=== PATIENT | female | born 1945 | race Caucasian/White ===

== ENCOUNTER 2017-07-18 12:44 | Inpatient (IN) | payer MEDICARE, OTHER ==
[~2017-07-18] VITALS: Ht 162.6 cm; Wt 116.7 kg
[~2017-07-18 12:44] MED LIST: ACETAMINOP325 MG/10 PO; ACETAMINOPHEN325 M1 PO; Albuterol/Ipratropium Nebulize NEB; BACTRIM DS TAB1 EACH PO; CARAFATE1 GM PO; CARAFATE1 GM/10 ML PO; CICLOPIROX15 GM TOP; CYMBALTA30 MG PO; DOXYCYCLINE PO; FAMOTIDINE20 MG PO; FERROUS SULFAT325 MG PO; HORIZANT600 MG; KETOROLAC TR30 MG/ML IV; LASIX40 MG PO; LOVENOX40 MG/0.4 SC; METOLAZONE5 MG PO; METOPROLOL TART25 MG PO; MIRAPEX0.5 MG PO; MIRAPEX0.75 MG; MIRAPEX1 MG PO; MOBIC15 MG PO; NEURONTIN300 MG PO; NORCO 7.5-3251 EACH; NYAMYC15 GM TOP; NYSTATIN15 GM TOP; ONDANSETRON4 MG/2 M1 IV; PANTOPRAZOLE SO40 MG PO; SANTYL15 GM TOP; SILVASORB480 ML; SILVASORB480 ML TOP; ULTRAM 50MG50 MG PO; VANCOMYCIN HCL500 MG IV; VANCOMYCIN1 GM/250 M IV; ZANAFLEX4 MG PO; ZANTAC150 MG PO; ZOSYN 3.373.375 GM/5 IVP; [UNRECOGNIZED DRUG - CODE] TOP; [UNRECOGNIZED DRUG - CODE] TOP; [UNRECOGNIZED DRUG - OTHER] PO
[2017-07-18] MEDS: SODIUM CHLORIDE 0.9% 1000ML 1,000 ML IV SCH (14:53)
[2017-07-18] MEDS ORDERED: SODIUM CHLORIDE FLUSH 10 ML SYR INJ PRN (15:00)
[2017-07-18] MEDS ORDERED: ONDANSETRON HCL INJ 2 MG/ML VIAL IV PRN (15:00)
[2017-07-18 15:24] LABS: BASOPHILS # (AUTO) 0.1 (0.0-0.1); BASOPHILS % 0.4 % (0.0-1.0); EOSINOPHILS # (AUTO) 0.2 (0.0-0.4); EOSINOPHILS % 1.5 % (0.0-6.0); HEMATOCRIT 37.3 % (34.2-44.1); HEMOGLOBIN 11.5 g/dL (12.0-16.0); LYMPHOCYTES # (AUTO) 1.4 (1.0-3.2); LYMPHOCYTES % 11.9 % (18.0-39.1); MEAN CORPUSCULAR HEMOGLOBIN 27.8 pg (28-32); MEAN CORPUSCULAR HGB CONC 30.8 g/dL (31-35); MEAN CORPUSCULAR VOLUME 90.1 fL (81-99); MONOCYTES # (AUTO) 0.8 (0.2-0.8); MONOCYTES % 6.6 % (4.4-11.3); NEUTROPHILS # (AUTO) 9.5 (2.1-6.9); NEUTROPHILS % 79.2 % (38.7-80.0); PLATELET COUNT 162 x10e3/uL (140-360); RED BLOOD COUNT 4.14 x10e6/uL (3.6-5.1); RED CELL DISTRIBUTION WIDTH 15.5 % (11.7-14.4)
[2017-07-18] MEDS ORDERED: PIPER-TAZ 3.375 GM 50 ML IV SCH (15:30)
[2017-07-18 15:33] LABS: INR 1.08; PROTHROMBIN TIME 14.6 seconds (11.9-14.5)
[2017-07-18 15:34] LABS: PARTIAL THROMBOPLASTIN TIME 34.3 seconds (23.8-35.5)
[2017-07-18 15:40] LABS: ALANINE AMINOTRANSFERASE 16 IU/L (0-55); ALBUMIN 3.2 g/dL (3.5-5.0); ALBUMIN/GLOBULIN RATIO 0.7 (0.8-2.0); ALKALINE PHOSPHATASE 121 IU/L (40-150); ANION GAP 14.6 mmol/L (8-16); BLOOD UREA NITROGEN 18 mg/dL (7-26); BUN/CREATININE RATIO 22 (6-25); CALCIUM 8.9 mg/dL (8.4-10.2); CARBON DIOXIDE 27 mmol/L (22-29); CHLORIDE 96 mmol/L (98-107); CREATININE, SERUM 0.83 mg/dL (0.57-1.11); EST GLOMERULAR FILTRATION RATE > 60 ML/MIN (60-); GLUCOSE 100 mg/dL (74-118); POTASSIUM 3.6 mmol/L (3.5-5.1); SODIUM 134 mmol/L (136-145)
--- NOTE | 2017-07-18 16:10 | Diagnostic Imaging Report ---
PROCEDURE:X-RAY LEFT FOOT, COMPLETE COMPARISON:None. INDICATIONS:LEFT HEEL WOUND FINDINGS: 3 views of the left foot PA, lateral, and oblique). Soft tissue defect over the heel. There are questionable erosive changes of the calcaneus. The bones are diffusely osteopenic. Questionable regional osteopenia the calcaneus. Small calcaneal heel spur. Degenerative changes at the midfoot. CONCLUSION: Soft tissue defect over the heel. There are findings which are suspicious for osteomyelitis of the calcaneus. Recommend MRI of the hindfoot (with and without contrast) for better evaluation. Dictated by: Mariano Mcmillan M.D. on 07/18/2017 at 16:19 Electronically approved by: Mariano Mcmillan M.D. on 07/18/2017 at 16:19
[2017-07-18] MEDS ORDERED: VANCOMYCIN 1GM/NS 250 ML 250 ML IV SCH (17:00)
[2017-07-18 20:00] VITALS: BP 140/89
[2017-07-18 20:04] VITALS: BP 140/89
[2017-07-18] MEDS: ACETAMINOPHEN 325 MG TAB PO PRN (22:37)
[2017-07-19] VITALS (8 sets, daily range): BP systolic 106–172; BP diastolic 63–72
[2017-07-19] MEDS ORDERED: PIPER-TAZ 3.375 GM 50 ML IV SCH ×2 (04:00)
[2017-07-19] MEDS: PIPER-TAZ 3.375 GM 50 ML IV SCH ×5 (04:07→17:50)
[2017-07-19] MEDS: SODIUM CHLORIDE 0.9% 1000ML 1,000 ML IV SCH ×2 (04:08→05:46)
--- NOTE | 2017-07-19 04:31 | Diagnostic Imaging Report ---
CHEST XRAY LINE PLACEMENT, 07/18/2017 11:19 PM Technique: CHEST XRAY LINE PLACEMENT Comparison: 10/04/2016 Clinical history: PICC line placement Findings: Stable mildly enlarged cardiac silhouette, visualized thoracic rods, left humeral arthroplasty and neurostimulator leads. No edema or consolidation, pleural effusion or pneumothorax. Impression: 1. Lines/Tubes: Right PICC tip overlies the expected central subclavian vein. 2. No acute abnormality. Signed by: Dr Milli Monterroso MD on 07/19/2017 12:48 AM
--- NOTE | 2017-07-19 04:46 | Diagnostic Imaging Report ---
CHEST XRAY LINE PLACEMENT, 07/19/2017 3:38 AM Technique: CHEST XRAY LINE PLACEMENT Comparison: 07/19/2016 Clinical history: PICC line placement advancement Findings: Stable cardiac silhouette, visualized thoracic hardware, left humeral arthroplasty and neurostimulator leads. Motion artifact without visualized consolidation or pneumothorax. Impression: 1. Lines/Tubes: Right PICC tip overlies the expected cavoatrial junction. 2. No acute abnormality. Signed by: Dr Milli Monterroso MD on 07/19/2017 4:42 AM
[2017-07-19] MEDS ORDERED: VANCOMYCIN 1GM/NS 250 ML 250 ML IV SCH (05:00)
[2017-07-19] MEDS: VANCOMYCIN 1GM/NS 250 ML 250 ML IV SCH ×3 (05:15→21:00)
[2017-07-19] MEDS: ASPIRIN 81 MG ENTERIC COATED PO SCH (08:58)
[2017-07-19] MEDS: METOPROLOL TARTRATE 25 MG TAB PO SCH ×2 (09:30→20:02)
--- NOTE | 2017-07-19 10:40 | Diagnostic Imaging Report ---
EXAMINATION: CHEST SINGLE (PORTABLE) INDICATION: \S\CHF \[id number] \S\[id number] COMPARISON: None FINDINGS: AP view Findings: Stable cardiac silhouette, visualized thoracic hardware, left humeral arthroplasty and neurostimulator leads. Motion artifact without visualized consolidation or pneumothorax. Impression: 1. Lines/Tubes: Right PICC tip overlies the expected cavoatrial junction. 2. Bilateral central pulmonary vascular congestion, new since prior exam. Signed by: Dr. Alana Lacey M.D. on 07/19/2017 10:37 AM
[2017-07-19] MEDS ORDERED: HYDROCODONE/APAP 7.5MG-325MG 1 EA TAB PO PRN (11:45)
[2017-07-19] MEDS: GABAPENTIN 400 MG CAP PO SCH ×3 (12:05→21:00)
[2017-07-19] MEDS: PANTOPRAZOLE SOD 40 MG TABEC PO SCH (12:05)
[2017-07-19 13:21] LABS: BASOPHILS % 0.3 % (0.0-1.0); EOSINOPHILS # (AUTO) 0.2 (0.0-0.4); EOSINOPHILS % 3.2 % (0.0-6.0); HEMATOCRIT 34.2 % (34.2-44.1); HEMOGLOBIN 10.4 g/dL (12.0-16.0); LYMPHOCYTES % 13.2 % (18.0-39.1); MEAN CORPUSCULAR HEMOGLOBIN 27.6 pg (28-32); MEAN CORPUSCULAR HGB CONC 30.4 g/dL (31-35); MEAN CORPUSCULAR VOLUME 90.7 fL (81-99); MONOCYTES # (AUTO) 0.5 (0.2-0.8); MONOCYTES % 6.2 % (4.4-11.3); NEUTROPHILS # (AUTO) 5.8 (2.1-6.9); NEUTROPHILS % 76.7 % (38.7-80.0); PLATELET COUNT 113 x10e3/uL (140-360); RED BLOOD COUNT 3.77 x10e6/uL (3.6-5.1); RED CELL DISTRIBUTION WIDTH 15.3 % (11.7-14.4)
[2017-07-19 13:38] LABS: BILIRUBIN,URINE NEGATIVE (NEGATIVE); CLARITY,URINE CLEAR (CLEAR); COLOR,URINE YELLOW (YELLOW); KETONES,URINE NEGATIVE (NEGATIVE); LEUKOCYTE ESTERASE ,URINE NEGATIVE (NEGATIVE); NITRITE,URINE NEGATIVE (NEGATIVE); PROTEIN,URINE DIPSTICK NEGATIVE (NEGATIVE); URINE UROBILINOGEN 0.2 mg/dL (0.2 - 1)
[2017-07-19 13:44] LABS: ALANINE AMINOTRANSFERASE 15 IU/L (0-55); ALBUMIN 2.8 g/dL (3.5-5.0); ALBUMIN/GLOBULIN RATIO 0.6 (0.8-2.0); ALKALINE PHOSPHATASE 109 IU/L (40-150); ANION GAP 12.7 mmol/L (8-16); BLOOD UREA NITROGEN 16 mg/dL (7-26); BUN/CREATININE RATIO 21 (6-25); CALCIUM 8.4 mg/dL (8.4-10.2); CARBON DIOXIDE 28 mmol/L (22-29); CHLORIDE 101 mmol/L (98-107); CREATININE, SERUM 0.78 mg/dL (0.57-1.11); EST GLOMERULAR FILTRATION RATE > 60 ML/MIN (60-); GLUCOSE 143 mg/dL (74-118); POTASSIUM 3.7 mmol/L (3.5-5.1); SODIUM 138 mmol/L (136-145)
[2017-07-19 13:49] LABS: EPITHELIAL CELLS,URINE FEW /LPF; WBC,URINE (MAN) 0-5 /HPF (0-5)
--- NOTE | 2017-07-19 14:04 | History and Physical ---
PRIMARY CARE PROVIDER: Dr. Ari Heaton. CHIEF COMPLAINT: Swelling and erythema of left lower leg. HISTORY OF PRESENT ILLNESS: Ms. Hernandez is a 71;-year-old presenting with 2-day history of swelling and erythema of the left lower leg from the knee to the midfoot. She also has a chronic nonhealing left heel ulcer that is nondiabetic, and has some evidence of chronic venous stasis changes. The heel ulcer is not due to diabetes, but may very well be due to peripheral arterial disease. REVIEW OF SYSTEMS: She denies fever, chills or weight loss. She denies sinus congestion or sore throat. She denies chest pain or palpitations. She denies shortness of breath, wheezing or cough. She denies abdominal pain, nausea, vomiting, or melena. She denies dysuria or flank pain. She has some erythema and swelling of the left lower leg below the knee. She denies any other rash. She has a chronic nonhealing ulcer of the left heel. She denies bleeding or bruising. She complains of pain in the left hip and left knee. She denies headache, vertigo or loss of consciousness. Denies depression, agitation, homicide, or suicidal ideation. PAST MEDICAL HISTORY: Significant for long-standing hypertension, chronic venous stasis, osteoarthritis. She had a DVT after back surgery in 2013 is on no anticoagulation at the current moment. She has a chronic nonhealing left heel ulcer and chronic back pain. She has a history of distant hysterectomy, cholecystectomy, left shoulder replacement, bilateral carpal tunnel surgery, multiple left heel debridements, and she has had multiple back surgeries, most recently was a spinal stimulator placement. MEDICATIONS 1. Cymbalta 60 mg twice daily. 2. Lasix 40 mg twice daily. 3. Gabapentin 800 mg 4 times a day. 4. Metoprolol 25 mg at bedtime. 5. Protonix 40 mg q.a.m. 6. Mirapex 2 mg 3 times a day. ALLERGIES: SHE HAS A STATED ALLERGY TO METHADONE, DILAUDID, MORPHINE, AND CLINDAMYCIN. FAMILY HISTORY: Significant for hypertension. SOCIAL HISTORY: The patient is . Bruneian is her primary language. She does not smoke, drink or use illegal drugs. She is generally independently functioning. PHYSICAL EXAMINATION PSYCHIATRIC: She is alert and oriented times 3 with normal mood and affect. CONSTITUTIONAL: She is overweight and morbidly obese. BMI is 44.1. She is in no acute distress. VITAL SIGNS: Blood pressure 121/72, pulse 90 and regular, respiratory rate 18, O2 sat 100% on room air, temperature 96.8. HEENT: Her head is atraumatic. Eyes are anicteric with clear conjunctivae. Ears and nares without erythema or discharge. Oropharynx is clear. NECK: Supple with no mass or thyromegaly. LYMPHATIC SYSTEM: She has no palpable cervical, axillary or inguinal adenopathy. CARDIOVASCULAR: Her heart has a regular rate and rhythm. She has a grade 2/6 systolic murmur at the left sternal border. She has no carotid bruit. She has trace edema in the right leg about the ankle and a little bit more significant edema in the left leg around the ankle with some erythema. RESPIRATORY: Lungs are clear to auscultation and percussion with normal respiratory effort. GASTROINTESTINAL: Abdomen is soft without organomegaly, masses or tenderness. She has normal bowel sounds present. CUTANEOUS: Her skin is warm and dry to touch. She has erythema and swelling of the left lower leg below the knee to the midfoot, and there is a chronic nonhealing ulcer on the left heel. MUSCULOSKELETAL: Her joints are in normal alignment without erythema or swelling. She has no calf tenderness. NEUROLOGIC: Nonfocal with intact cranial nerves and no motor or sensory deficits. DIAGNOSTIC STUDIES: Left foot x-ray shows soft tissue defects corresponding to the ulcer on her left heel, and there may be some osteo changes in the calcaneus. MRI is recommended. Chest x-ray shows cardiomegaly and pulmonary vascular congestion. Venous Doppler is negative for DVT. Arterial Doppler shows severe narrowing in the left iliac artery, otherwise is okay. Her echo has an ejection fraction of 50% to 55% with left atrial enlargement, right ventricular enlargement, and mild aortic stenosis with a peak gradient of 25 and calculated aortic valve area of 1.2 cm squared. Her A1c level is 5.4. Lactic acid 7.1. Chemistry shows normal electrolytes. CO2 27, creatinine 0.83, BUN 18 for a normal GFR. Calcium 8.9. Glucose 100. Transaminases, bilirubin and alk phos are normal. CBC shows a white count 12 with 79% neutrophils, 12% lymphocytes, and 7% monocytes. Hemoglobin 11.5 with microcytic indices, hematocrit 37.3 and platelet count 162,000. Her coags are normal. ASSESSMENT AND PLAN 1. Peripheral arterial disease with chronic nonhealing ulcer of left heel with possible osteomyelitis of the calcaneus. Patient will be getting wound care. Will consult podiatry. Discussed whether we should get an MRI of the foot. Cardiology will also be consulted for possible intervention in the iliac artery. In the meantime, she will be kept on aspirin daily. Will continue wound care and intravenous antibiotics for the cellulitis. 2. Cellulitis, left lower leg: The patient was started on intravenous vancomycin and Zosyn empirically. Blood cultures are pending along with leg elevation. 3. Hypertension with chronic venous stasis: The patient will continue metoprolol and Lasix and leg elevation. 4. Left hip and knee pain: Probable osteoarthritis. Will check x-rays and some plain films to start with to evaluate. 5. Microcytic anemia: Will check fecal occult blood test and the usual anemia labs, iron and vitamin levels. No need for transfusion at this time. Will monitor and transfuse if hemoglobin drops below 11. 6. For prophylaxis, the patient will be on Lovenox for deep venous thrombosis prophylaxis and Protonix for gastrointestinal prophylaxis. Job#: [id number] ANDRESSA
[2017-07-19 15:33] LABS: CHOL/HDL RATIO 2.8 (3.0-3.6)
[2017-07-19] MEDS: PRAMIPEXOLE DIHYDROCHLORIDE 1 MG TAB PO SCH ×2 (15:46→21:00)
[2017-07-19] MEDS: HYDROCODONE/APAP 7.5MG-325MG 1 EA TAB PO PRN ×2 (15:46→21:15)
[2017-07-19] MEDS ORDERED: COLLAGENASE OINTMENT 30 GM TUBE TP SCH (16:00)
[2017-07-19 16:46] LABS: BASOPHILS % 0.2 % (0.0-1.0); EOSINOPHILS # (AUTO) 0.3 (0.0-0.4); EOSINOPHILS % 3.8 % (0.0-6.0); HEMATOCRIT 32.6 % (34.2-44.1); LYMPHOCYTES % 11.3 % (18.0-39.1); MEAN CORPUSCULAR HEMOGLOBIN 27.7 pg (28-32); MEAN CORPUSCULAR HGB CONC 30.7 g/dL (31-35); MEAN CORPUSCULAR VOLUME 90.3 fL (81-99); MONOCYTES # (AUTO) 0.8 (0.2-0.8); MONOCYTES % 8.9 % (4.4-11.3); NEUTROPHILS # (AUTO) 6.5 (2.1-6.9); NEUTROPHILS % 75.3 % (38.7-80.0); PLATELET COUNT 249 x10e3/uL (140-360); RED BLOOD COUNT 3.61 x10e6/uL (3.6-5.1); RED CELL DISTRIBUTION WIDTH 15.2 % (11.7-14.4)
[2017-07-19] MEDS: FUROSEMIDE 40 MG TAB PO SCH (17:00)
[2017-07-19] MEDS: ENOXAPARIN SOD INJ 40 MG/0.4 ML SYR SC SCH (17:50)
[2017-07-19] MEDS: DULOXETINE HCL 30 MG DELAYED RELEASE PO SCH (17:50)
--- NOTE | 2017-07-19 18:15 | Diagnostic Imaging Report ---
RIGHT HIP X-RAY - 3 VIEWS HISTORY: \S\PAIN COMPARISON: None available. FINDINGS: Bones: No acute displaced fracture. Partially visualized hardware in the lower lumbar spine. Osseous alignment is within normal limits. Joints: Degenerative changes of both sacroiliac joints and acetabular femoral joints. Soft tissues: The soft tissues appear unremarkable. Partially visualized metallic device in the left lower quadrant. IMPRESSION: No acute radiographic abnormality. Signed by: Dr. Alana Lacey M.D. on 07/19/2017 6:11 PM
--- NOTE | 2017-07-19 18:15 | Diagnostic Imaging Report ---
RIGHT KNEE X-RAY - 3 VIEWS HISTORY: \S\PAIN \S\[id number] \S\[id number] COMPARISON: None available. FINDINGS: Bones: No acute displaced fracture. Osseous alignment is within normal limits. Joints: Moderate tricompartmental degenerative changes. Soft tissues: The soft tissues appear unremarkable. IMPRESSION: No acute radiographic abnormality. Signed by: Dr. Alana Lacey M.D. on 07/19/2017 6:12 PM
[2017-07-20] VITALS (7 sets, daily range): BP systolic 91–121; BP diastolic 57–89
--- NOTE | 2017-07-20 01:56 | Consultation ---
DATE OF CONSULTATION: CARDIOLOGY CONSULTATION Thank you so much for asking me to see this nice lady in consultation. Mrs. Hernandez is a very complex elderly and morbidly obese woman who was sent from Dr. Aleman's office with left lower leg erythema. HISTORY OF PRESENT ILLNESS: Patient reports that she has had cellulitis in the left lower leg before, and she has taken various courses of antibiotics at home, but suddenly became much redder about of this past week. PAST MEDICAL HISTORY: Long and complex with multiple problems. She denies diabetes or hypertension. She reports she has been told she has an irregular heart rhythm and takes metoprolol. She has lumbar spine disease and had a spine stimulator implanted in April of 2017. She reports that she has a nonhealing ulcer in her left foot perhaps related to neuropathy. She fell down a couple of years ago, and injured her left knee requiring surgical debridement of thrombus. Since then has had a painful left knee. She sees a neurologist, and was told that they do not know why she has neuropathy, but obviously not diabetic in nature. PERSONAL/SOCIAL HISTORY: She lives alone. PHYSICAL EXAMINATION GENERAL: Shows a morbidly obese white woman who is about 5 feet 2 inches tall, weighing 257 pounds. HEENT: Unremarkable. NECK: No jugular venous distention. No bruits. No scars. THORAX: Heart sounds S1 and S2 are equal with prematures. No murmurs. LUNGS: Relatively clear with good air movement on both sides. ABDOMEN: Markedly protuberant with no visible surgical incisions. EXTREMITIES: The groins have erythema on both sides. The left lower leg has significant erythema below the left knee to the ankle. There is a bandage on the left foot. No EKG on the chart. REVIEW OF SYSTEMS PULMONARY: She reports she was told that she had a right hemidiaphragm paralysis diagnosed about 2013. CARDIOVASCULAR: She reports that she had some sort of procedure by Dr. Blas about 2016 at [facility]. She is not sure what this is. She thinks they may have attempted to open up some arteries in the leg, but cannot give me any further details at all. She reports her surgical procedures in the past have been a right neck cyst removal in about 2007. She reports she has had a remote hysterectomy and cholecystectomy. PERTINENT LABORATORY STUDIES: Are on the chart are relatively unrevealing with white count of 12,000. Normal BUN and creatinine. Current arterial Doppler scan of the legs suggests possible stenoses at the left iliac, the left distal superficial femoral, left popliteal, but she has palpable pulses in both groins. Right is bounding and left is somewhat reduced. Echocardiogram shows normal left ventricular function with aortic sclerosis. ASSESSMENT 1. Cellulitis of the left lower extremity, recurrent. 2. Nonhealing ulcer of the left foot, ongoing for several years. 3. Lumbar spine problems with neuropathy, probably related with no obvious improvement after stimulator implant in April 2017. 4. Morbid obesity. PLAN: Will await antibiotic treatment of the cellulitis, and consider whether angiogram might be helpful. Will attempt to obtain other records as well. Thank you for asking me to see her in consultation. Job#: [id number] RI cc:JEREMÍAS ALEMAN DO
--- NOTE | 2017-07-20 02:06 | Diagnostic Imaging Report ---
CT FOOT LEFT W Clinical history: Osteomyelitis, edema, cellulitis Technique: Volumetric CT scan of the left foot foot was performed. 100 mL of Isovue-370 was administered. Coronal, sagittal and axial images are generated from source data. Comparison: None Findings: Bones/Soft tissues: There is marked soft tissue edema with ulceration and fluid/phlegmon along the inferior posterior aspect of the calcaneus. Underlying cortical/bony destruction is seen involving the inferior posteromedial calcaneus. No fractures or dislocations. Moderate midfoot degenerative changes. Chronic ossicles adjacent to the medial malleolus and posterior talus suggesting prior trauma. Mild tibiotalar joint space narrowing/degenerative change, worse medially with likely reactive talar sclerosis. Overall, there is decreased bone mineralization. 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 Nonemergent follow-up MRI could performed to evaluate extent of disease. Signed by: Dr Milli Monterroso MD on 07/20/2017 2:03 AM
[2017-07-20] MEDS: ACETAMINOPHEN 325 MG TAB PO PRN (02:12)
[2017-07-20] MEDS: HYDROCODONE/APAP 7.5MG-325MG 1 EA TAB PO PRN ×2 (04:24→22:21)
[2017-07-20] MEDS ORDERED: IOPAMIDOL 370 MG/ML 200 ML INFUS..BTL INJ ONE (05:19)
[2017-07-20] MEDS ORDERED: SODIUM CHLORIDE 0.9% 50ML 50 ML ONE (05:19)
[2017-07-20] MEDS: PIPER-TAZ 3.375 GM 50 ML IV SCH ×5 (06:37→23:56)
[2017-07-20 07:07] LABS: BASOPHILS % 0.5 % (0.0-1.0); EOSINOPHILS # (AUTO) 0.4 (0.0-0.4); EOSINOPHILS % 5.4 % (0.0-6.0); HEMATOCRIT 34.5 % (34.2-44.1); HEMOGLOBIN 10.3 g/dL (12.0-16.0); LYMPHOCYTES % 14.9 % (18.0-39.1); MEAN CORPUSCULAR HEMOGLOBIN 27.6 pg (28-32); MEAN CORPUSCULAR HGB CONC 29.9 g/dL (31-35); MEAN CORPUSCULAR VOLUME 92.5 fL (81-99); MONOCYTES # (AUTO) 0.6 (0.2-0.8); MONOCYTES % 9.6 % (4.4-11.3); NEUTROPHILS # (AUTO) 4.6 (2.1-6.9); NEUTROPHILS % 69.1 % (38.7-80.0); PLATELET COUNT 241 x10e3/uL (140-360); RED BLOOD COUNT 3.73 x10e6/uL (3.6-5.1); RED CELL DISTRIBUTION WIDTH 15.5 % (11.7-14.4)
[2017-07-20 07:26] LABS: % IRON SATURATION 9 % (15-50); ANION GAP 11.9 mmol/L (8-16); BLOOD UREA NITROGEN 12 mg/dL (7-26); BUN/CREATININE RATIO 15 (6-25); CALCIUM 8.4 mg/dL (8.4-10.2); CARBON DIOXIDE 29 mmol/L (22-29); CHLORIDE 101 mmol/L (98-107); CREATININE, SERUM 0.78 mg/dL (0.57-1.11); EST GLOMERULAR FILTRATION RATE > 60 ML/MIN (60-); GLUCOSE 95 mg/dL (74-118); IRON 29 ug/dL (50-170); POTASSIUM 3.9 mmol/L (3.5-5.1); SODIUM 138 mmol/L (136-145); TOTAL IRON BINDING CAPACITY 311 ug/dL (261-478); TRANSFERRIN 222 mg/dL (180-382)
[2017-07-20 07:50] LABS: FREE T4 (FREE THYROXINE) 0.96 ng/dL (0.9-1.8); THYROID STIMULATING HORMONE 0.755 uIU/mL (0.350-4.940)
[2017-07-20 07:55] LABS: FOLATE 18.8 ng/mL (7.0-15.4)
[2017-07-20] MEDS: ASPIRIN 81 MG ENTERIC COATED PO SCH (08:33)
[2017-07-20] MEDS: DULOXETINE HCL 30 MG DELAYED RELEASE PO SCH ×2 (08:33→17:00)
[2017-07-20] MEDS: FUROSEMIDE 40 MG TAB PO SCH ×2 (08:33→17:00)
[2017-07-20] MEDS: PANTOPRAZOLE SOD 40 MG TABEC PO SCH (08:33)
[2017-07-20] MEDS: PRAMIPEXOLE DIHYDROCHLORIDE 1 MG TAB PO SCH ×3 (08:33→20:27)
[2017-07-20] MEDS: METOPROLOL TARTRATE 25 MG TAB PO SCH ×2 (08:33→20:27)
[2017-07-20] MEDS: GABAPENTIN 400 MG CAP PO SCH ×4 (08:33→20:27)
[2017-07-20] MEDS ORDERED: SILVER ANTIMICROBIAL WOUND GEL 45ML TOP SCH (09:00)
[2017-07-20] MEDS: VANCOMYCIN 1GM/NS 250 ML 250 ML IV SCH ×2 (09:43→20:27)
--- NOTE | 2017-07-20 09:43 | Consultation ---
DATE OF CONSULTATION: July 19, 2017 REASON FOR CONSULTATION: Nonhealing ulceration, left foot with cellulitis to the left leg. HISTORY OF PRESENT ILLNESS: This is a pleasant 71-year-old white female who is very well known to me secondary to prior admissions and also following in the office with a nonhealing ulceration to the left heel. The patient relates she started getting severe redness, having some nausea and fever 2 days ago. Presented to the emergency room. Ever since, she has been in the hospital getting IV antibiotics, which are Zosyn and vancomycin. She has been feeling much better. Is denying any history of fever, chills, nausea, or vomiting at this time. PAST MEDICAL HISTORY: Remarkable for severe peripheral neuropathy. The patient is not diabetic. Also, past medical history remarkable for irregular heartbeats. PAST SURGICAL HISTORY: Remarkable for plantar fasciotomy several years ago to both lower extremities, multiple left foot I and D's with debridement of left foot ulcerations. ALLERGIES: CLINDAMYCIN, METHADONE, DILAUDID, MORPHINE. SOCIAL HISTORY: Denies any smoking, drinking or recreational drug use. FAMILY HISTORY: Noncontributory. CURRENT MEDICATIONS: Listed in the chart and including IV Zosyn and vancomycin. REVIEW OF SYSTEMS CARDIAC: Denies any palpitations or arrhythmias. RESPIRATORY: Denies any shortness of breath or productive cough. GASTROINTESTINAL: Denies any diarrhea or constipation. GENITOURINARY: Denies any problems voiding. PHYSICAL EXAMINATION VITALS: Afebrile, pulse rate 89, respirations 19, blood pressure 172/66, and O2 saturation 94%. PODIATRIC PHYSICAL EXAMINATION: Reveals the following: VASCULATURE: Pedal pulses are palpable to both the DP and PT. More palpable on the DP than the PT bilaterally. CFT to all toes less than 5 seconds. NEUROLOGICAL: Reveals complete loss of protective sensation when utilizing Adell-Marcy 5.7 monofilament wire. MUSCULOSKELETAL: Muscle mass is asymmetric. Muscle strength is 4-5/5 to all muscle groups. Moderate amount of swelling noted to the left lower extremity with cellulitis up to the midcalf and mid-tibial area of the left leg. Moderate swelling when compared to contralateral side. DERMATOLOGICAL: Shows a grade 3/4 ulceration with some tracking noted down to bone. Minimal foul smell present with some necrosis present surrounding the wound. The ulcer is approximately 3-4 cm in diameter. LABS: Noted. Has a white blood cell count dropping from 12.4 to 7.5, hemoglobin 10.4, hematocrit 34.2, and platelet count of 113,000. ASSESSMENT 1. Possible osteomyelitis. 2. Severe peripheral neuropathy. 3. Grade 3 ulcer with cellulitis. PLAN 1. Will continue IV Zosyn and vancomycin. 2. Sharp excisional debridement of the ulcer was carried down to bone. Devitalized tissue sharply removed. Good bleeding tissue achieved. 3. Deep cultures were taken for aerobic and anaerobic growth. 4. MRI will be ordered to rule out osteomyelitic changes or abscess to the left heel area. Santyl collagenous will be ordered to be applied followed by diluted wet-to-dry Betadine in the evening and SilvaSorb gel followed by diluted wet-to-dry Betadine dressing in the morning. Will continue conservative care. Patient understands possible bone debridement that may need to be done depending on MRI findings. Job#: [id number] ANDRESSA
--- NOTE | 2017-07-20 14:26 | Progress Note ---
DATE: July 20, 2017 SUBJECTIVE: Patient was seen at bedside. Doing somewhat better. Denied any history of fever, chills, nausea, or vomiting. Decreased pain to the left lower extremity. OBJECTIVE VITALS: Afebrile, pulse rate 86, respirations 19, blood pressure 121/89, O2 saturation 94%. EXTREMITIES: Ulceration looking somewhat better. Pedal pulses are diminished. Decreased cellulitis to the left leg. LABS: Show a white blood cell count dropping to 6.6, hemoglobin 10.3, hematocrit 34.5 with a platelet count of 241,000. CT report noted showing signs of positive osteomyelitis to the inferior aspect of the left calcaneous. No gas in the tissue noted. ASSESSMENT 1. Grade 4 ulcer, left foot. 2. Osteomyelitis, left foot. 3. Peripheral neuropathy with cellulitis. PLAN: Will continue IV antibiotics. Continue local wound care. Will continue to follow. If the patient becomes nonresponsive, she may need a partial calcanectomy with a rotational flap closure of the ulcer. Job#: [id number] NE
[2017-07-20] MEDS: ASCORBIC ACID 500 MG TAB PO SCH (17:00)
[2017-07-20] MEDS: FERROUS SULFATE 325 MG TAB PO SCH (17:00)
[2017-07-20] MEDS: ENOXAPARIN SOD INJ 40 MG/0.4 ML SYR SC SCH (17:00)
[2017-07-20] MEDS: NYSTATIN 15 GM POWDER UD BTL TOP SCH (18:12)
[2017-07-21 01:38] VITALS: BP 139/76
[2017-07-21] MEDS: ACETAMINOPHEN 325 MG TAB PO PRN (02:37)
[2017-07-21 05:05] VITALS: BP 107/73
[2017-07-21] MEDS: PIPER-TAZ 3.375 GM 50 ML IV SCH ×2 (05:22→13:30)
[2017-07-21 06:44] LABS: BASOPHILS % 0.6 % (0.0-1.0); EOSINOPHILS # (AUTO) 0.5 (0.0-0.4); EOSINOPHILS % 9.5 % (0.0-6.0); HEMATOCRIT 33.5 % (34.2-44.1); HEMOGLOBIN 10.1 g/dL (12.0-16.0); LYMPHOCYTES # (AUTO) 1.3 (1.0-3.2); LYMPHOCYTES % 26.1 % (18.0-39.1); MEAN CORPUSCULAR HEMOGLOBIN 27.7 pg (28-32); MEAN CORPUSCULAR HGB CONC 30.1 g/dL (31-35); MONOCYTES # (AUTO) 0.6 (0.2-0.8); MONOCYTES % 12.2 % (4.4-11.3); NEUTROPHILS # (AUTO) 2.5 (2.1-6.9); NEUTROPHILS % 51.4 % (38.7-80.0); PLATELET COUNT 253 x10e3/uL (140-360); RED BLOOD COUNT 3.64 x10e6/uL (3.6-5.1); RED CELL DISTRIBUTION WIDTH 15.5 % (11.7-14.4)
[2017-07-21 07:08] LABS: ANION GAP 13.5 mmol/L (8-16); BLOOD UREA NITROGEN 10 mg/dL (7-26); BUN/CREATININE RATIO 13 (6-25); CALCIUM 8.4 mg/dL (8.4-10.2); CARBON DIOXIDE 32 mmol/L (22-29); CHLORIDE 99 mmol/L (98-107); CREATININE, SERUM 0.76 mg/dL (0.57-1.11); EST GLOMERULAR FILTRATION RATE > 60 ML/MIN (60-); GLUCOSE 89 mg/dL (74-118); POTASSIUM 3.5 mmol/L (3.5-5.1); SODIUM 141 mmol/L (136-145)
[2017-07-21 08:00] VITALS: BP 113/71
[2017-07-21] MEDS: DULOXETINE HCL 30 MG DELAYED RELEASE PO SCH ×2 (09:00→16:33)
[2017-07-21] MEDS: PRAMIPEXOLE DIHYDROCHLORIDE 1 MG TAB PO SCH ×2 (09:00→15:30)
[2017-07-21] MEDS: ASPIRIN 81 MG ENTERIC COATED PO SCH (09:00)
[2017-07-21] MEDS: GABAPENTIN 400 MG CAP PO SCH ×4 (09:00→18:08)
[2017-07-21] MEDS ORDERED: MULTIVITAMINS/MINERALS TAB PO SCH (09:00)
[2017-07-21] MEDS: FERROUS SULFATE 325 MG TAB PO SCH ×2 (09:00→16:33)
[2017-07-21] MEDS: VANCOMYCIN 1GM/NS 250 ML 250 ML IV SCH (09:00)
[2017-07-21] MEDS: NYSTATIN 15 GM POWDER UD BTL TOP SCH (09:00)
[2017-07-21] MEDS: ASCORBIC ACID 500 MG TAB PO SCH ×2 (09:00→16:33)
[2017-07-21] MEDS: METOPROLOL TARTRATE 25 MG TAB PO SCH (09:00)
[2017-07-21] MEDS: PANTOPRAZOLE SOD 40 MG TABEC PO SCH (09:00)
[2017-07-21 12:00] VITALS: BP 104/56
--- NOTE | 2017-07-21 13:19 | Consultation ---
DATE OF CONSULTATION: July 19, 2017 CARDIOVASCULAR CONSULTATION ATTENDING PHYSICIAN: Dr. Vasquez Thank you so much for asking me to see this nice but complex lady in consultation. Ms. Hernandez is a 71-year-old woman, morbidly obese, who lives alone, who was sent from her family physician's office with redness of the left lower leg. HISTORY OF PRESENT ILLNESS: The patient reports that she has had cellulitis in the left lower leg previous times and has been treated with antibiotics. She reports that she has had a left heel spur with debridement in June and August 2016. She also tells me of an episode of falling in September 2015 with contusion to her left knee with hematoma requiring debridement. 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 These multiple procedures some have been successful and some have not but without much improvement. PAST MEDICAL HISTORY: Significant for multiple surgeries to her back, at least 5 by her current history. She reports that she had a spine stimulator implanted in April 2017. She goes into great detail telling me that she has neuropathy in both feet with numbness and tingling, but the various studies by her report have not found any underlying cause, although she certainly denies any diabetes. She was hospitalized for a duodenal ulcer in October 2016. She has had multiple surgeries at [facility] for cellulitis. She has had a cholecystectomy in 2003, hysterectomy in 2003, remote tonsillectomy and umbilical hernia repair. She did have a calcaneal spur with some surgery in April 2006. 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 CURRENT HOSPITAL MEDICATIONS: Include: 1. Zosyn. 2. Vancomycin. 3. Furosemide 40 mg b.i.d. 4. Metoprolol 25 mg q.12 h. 5. Lovenox. 6. Gabapentin 800 mg 4 times a day. 7. Tylenol with Codeine. PHYSICAL EXAMINATION GENERAL: At this time, a morbidly obese, white woman who is about 5 feet 2 inches tall and weighs 257 pounds. VITALS: Blood pressure is 140/70. HEENT: Unremarkable. NECK: No jugular venous distention, no adenopathy, no bruits, no incisions. THORAX: Heart sounds S1 and S2 are equal. No significant murmur. Lungs are relatively clear. ABDOMEN: Markedly protuberant with candidiasis in both groins. EXTREMITIES: The left anterior tibial region is markedly erythematous. The left foot is in a bandage. Examination of the heel shows a small ulceration. Both femoral pulses are 2+. Review of the arterial Doppler scan of the legs shows monophasic waveforms throughout the left leg but with patent vessels. There is some acceleration of velocities in the left common femoral and the distal left superficial femoral artery but without stenoses imaged adequately. Review of records from [facility] show that she had a similar finding on arterial Doppler scan of the leg in June 2015 with acceleration of velocities in the left superficial femoral and popliteal with monophasic waveforms throughout the left leg. Current echocardiogram shows normal left ventricular function and aortic sclerosis. ASSESSMENT 1. Cellulitis of the left lower leg. 2. Nonhealing ulcer of the left heel. 3. Neuropathy with spine stimulator implant in April 2017. PLAN: Will monitor with you as she receives antibiotics and will add fungal treatment for her groins. Cannot consider any invasive study while she has these 2 different infections. Note there is no venous varicosity noted on her legs at this time. It appears that her neuropathy may be related to her back and that her edema may be related to dependent edema from spending hours "making jewelry at home," which she reports that she has stopped now. Thank you for asking me to see her in consultation. Job#: [id number] cc:MD DARON JOHNSON DPM
--- NOTE | 2017-07-21 14:07 | Progress Note ---
DATE: July 21, 2017 SUBJECTIVE: Patient seen at bedside feeling somewhat better. Denying any history of fever, chills, nausea or vomiting. OBJECTIVE: Vitals: Afebrile. Pulse rate 99, respirations 18, blood pressure 113/71. O2 saturation 98%. Ulceration to the plantar aspect of the left foot continues to improve. Approximately 3 to 3.5 cm in diameter, with some granulation tissue noted. Also, it is tracking down to bone. Pedal pulses are palpable. Decreased cellulitis to the left leg noted. Still increased skin temperature to left leg when compared to the right. ASSESSMENT: Grade 3/4 ulceration with osteomyelitis, diabetic neuropathy and cellulitis. PLAN: Will continue IV antibiotics. Will need IV antibiotics for next 3 to 4 weeks. Will continue local wound care. Continue offloading. Patient will benefit from HBO therapy. Job#: [id number]
[2017-07-21] MEDS ORDERED: ONDANSETRON4 MG/2 M1 IV (15:41)
[2017-07-21] MEDS ORDERED: NYAMYC15 GM TOP (15:41)
[2017-07-21] MEDS ORDERED: ASPIRIN EC81 MG PO (15:41)
[2017-07-21] MEDS ORDERED: SILVASORB480 ML TOP (15:41)
[2017-07-21] MEDS ORDERED: LOVENOX40 MG/0.4 SC (15:41)
[2017-07-21] MEDS ORDERED: Hydrocodone/Apap 7.5MG-325MG PO (15:41)
[2017-07-21] MEDS ORDERED: Collagenase TP (15:41)
[2017-07-21] MEDS ORDERED: ZOSYN 3.373.375 GM/5 IVP (15:41)
[2017-07-21] MEDS ORDERED: FERROUS SULFAT325 MG PO (15:41)
[2017-07-21] MEDS ORDERED: Multivitamins/Minerals PO (15:41)
[2017-07-21] MEDS ORDERED: ASCORBIC ACID500 MG PO (15:41)
[2017-07-21] MEDS ORDERED: VANCOMYCIN1 GM/250 M IV (15:41)
[2017-07-21 16:00] VITALS: BP_SYST 109; BP_SYST 198; BP_DIAS 59; BP_DIAS 90
[2017-07-21] MEDS: ENOXAPARIN SOD INJ 40 MG/0.4 ML SYR SC SCH (16:33)
[2017-07-21 20:00] VITALS: BP 120/80
--- NOTE | 2017-07-21 21:26 | Consultation ---
DATE OF CONSULTATION: REASON FOR CONSULTATION: Osteomyelitis of the left heel. HISTORY OF PRESENT ILLNESS: This patient who is a very pleasant 71-year-old female, who is known to me from before, history of hypertension, history of diabetes mellitus, history of Charcot joint, history of neuropathy, has been having ulcer on her heel for some time now. The patient was treated with antibiotic some time ago and she was on oral antibiotic. She was doing well. That was probably a year or 2 ago. The patient has history of DVT after back surgery 2012, history of neuropathy, Charcot joint, obesity, diabetes mellitus. She is coming with redness and swelling of the left lower extremity started a couple of days ago. The patient is known to Dr. Rogers, is known to Dr. Andreas Murcia, is known to me. Patient is being admitted, started on IV antibiotic. She is going to [place] today. The patient cannot stay off her foot when she is at home. She keeps walking on it. This patient also has chronic back pain and she had lumbar spine disease and had spine stimulator placed on May 09; so, an MRI has not been able to be done. Patient is admitted, started on vancomycin and Zosyn. Infectious disease was consulted. She is doing much better. Her redness has subsided, but there is also some redness in the foot and she has a deep ulcer on the heel, which is deep to the bone. PAST MEDICAL HISTORY: Obesity diabetes mellitus, hypertension, neuropathy, chronic back pain. PAST SURGICAL HISTORY: As mentioned above. ALLERGIES: CLINDAMYCIN AND METHADONE. SOCIAL HISTORY: No smoking, drug abuse, alcohol abuse. FAMILY HISTORY: Otherwise, hypertension, diabetes. REVIEW OF SYSTEMS HEENT: There is no headache, visual changes, hearing changes. GI: There is no nausea, no vomiting, no diarrhea. ALL OTHER SYMPTOMS: Within normal limits. PHYSICAL EXAMINATION GENERAL: She is currently alert, oriented, does not seem to be in acute distress. VITALS: Stable currently afebrile. HEENT: Normocephalic, nonicteric. NECK: Supple. No JVD, lymphadenopathy, thyromegaly. CHEST: Clear, bilateral coarse. HEART: S1, S2. No murmur. ABDOMEN: Soft, obese, nontender. Bowel sounds positive. EXTREMITIES: Left leg there is erythema and there is edema all the way to mid leg. There is an ulcer at the base of the heel. Charcot joint changes noted. The ulcer of the heel about 2 cm and deep to the bone. Pulses present, but weak. LAB DATA: Reviewed. CT scan showed soft tissue ulcer with calcaneous osteomyelitis of the inferior post medial aspect. She had a white count 4.8, hemoglobin 10.11, when she first came in white count was 12.1. Sodium 138, potassium 3.9, creatinine 0.78. Her TSH was 0.755. Her folic acid 18.8. Her vancomycin trough was 9.9. PHYSICAL EXAMINATION GENERAL: She is currently alert, oriented. Does not seem to be in acute distress. VITALS: Stable. Currently afebrile. HEENT: Normocephalic not icteric. NECK: Supple. CHEST: Clear. ABDOMEN: Soft. Positive bowel sounds. Obese. No tenderness. EXTREMITIES: No edema. IMPRESSION: Osteomyelitis of the foot by computed tomography. MRI could not be done. Will treat 8 weeks IV vancomycin and Zosyn. Will follow CBC, follow chem panel. Will follow with you at [facility]. To discuss with the patient. Job#: [id number]
--- NOTE | 2017-07-22 18:00 | Discharge Summary ---
ADMISSION DIAGNOSES 1. Peripheral arterial disease with chronic nonhealing ulcer of the left heel with possible osteomyelitis. 2. Cellulitis, left lower leg. 3. Hypertension. 4. Chronic venous stasis. 5. Left hip and knee pain. 6. Microcytic anemia. DISCHARGE DIAGNOSES 1. Peripheral arterial disease with chronic nonhealing ulcer of the left heel with possible osteomyelitis. 2. Cellulitis, left lower leg. 3. Hypertension. 4. Chronic venous stasis. 5. Left hip and knee pain. 6. Microcytic anemia. 7. Osteoarthritis of the left heel. 8. Rule out gastrointestinal bleed. HISTORY: Patient has a history of hypertension, chronic venous stasis, osteoarthritis, DVT after back surgery in 2013, and is on no anticoagulation at the moment. She has a chronic nonhealing left heel ulcer and chronic back pain. She has a surgical history of hysterectomy, cholecystectomy, left shoulder replacement, bilateral carpal tunnel surgery, multiple left heel debridements, and she has had multiple back surgeries, most recently was a spinal stimulator placement which she says is currently off. HOSPITAL COURSE: A 71-year-old female presented with 2-day history of swelling and erythema of the left lower leg from the knee to the midfoot. She has a chronic nonhealing ulcer. She is nondiabetic and has some evidence of chronic venous stasis changes. The ulcer is not due to diabetes but may be due to PAD. On admission, podiatry was consulted. Cardiology also consulted for possible intervention in the iliac artery. IV antibiotics started for cellulitis. MRI was ordered but was unable to be obtained due to the spinal stimulator placed. Patient started on Zosyn and vancomycin empirically. Per Dr. Rogers, a debridement was done on July 19, 2017. Blood cultures were negative. Urine cultures negative. X-ray of the left foot showed possible osteomyelitis. Due to the inability to obtain the MRI, the CT of the left foot was done which showed calcaneal osteomyelitis. The left lower extremity venous Doppler was negative. X-rays of the right knee and right hip were both negative. EKG showed sinus rhythm with PAC. Per podiatry, cultures were pending, although I did not see any in the computer. Patient continued on home medicines for pain and hypertension. Patient started on vitamins and iron, and a stool for blood was collected which was negative. Per Dr. Murcia, there is no need for invasive studies. It appears that the neuropathy may be related to her back and that her edema may be related to dependent edema from spending hours making . Current echo shows normal EF and aortic sclerosis. After reviewing the medical records from [place], showed she had similar findings on arterial Doppler scan of the leg in June 2015 with acceleration of velocities in the left superior femoral and popliteal with monophasic waveforms throughout the left leg. Per Dr. Murcia, there is no need for angiogram. Per Dr. Rogers, patient will need 3 to 4 weeks of IV antibiotics. Continue offloading. Patient will benefit from HBO therapy. Patient was sent to [facility] for long-term antibiotic, PT/OT, and wound care. At the time of discharge, WBC was 4.83, hemoglobin of 10.1, hematocrit of 33.5, sodium of 141, potassium of 3.5, creatinine of 0.76, BUN of 10, and GFR of over 60. Patient will transfer to [place] and continue care with the same physicians and same medications. Dictated by Rehana Nguyen NP MANDI REBOLLAR MD Job#: [id number] CF
== END 2017-07-21 20:53 | DRG 464 ==
LOC: ER 12:44 → ERHOLD 15:45 → MED/SURG2 18:15
PROVIDERS: ADMIT Internal Medicine; ATTEND Internal Medicine
PROC: 0JBR0ZZ Excision of Left Foot Subcutaneous Tissue and Fascia, Open Approach (ICD-10-PCS; principal; 2017-07-18)
PROC: 02HV33Z Insertion of Infusion Device into Superior Vena Cava, Percutaneous Approach (ICD-10-PCS; 2017-07-18)
DX: M86.9 Osteomyelitis, unspecified (principal); L97.421 Non-pressure chronic ulcer of left heel and midfoot limited to breakdown of skin; E11.610 Type 2 diabetes mellitus with diabetic neuropathic arthropathy; L03.90 Cellulitis, unspecified; Z68.41 Body mass index [BMI] 40.0-44.9, adult; I73.9 Peripheral vascular disease, unspecified; I87.2 Venous insufficiency (chronic) (peripheral); D64.9 Anemia, unspecified; M19.272 Secondary osteoarthritis, left ankle and foot; E66.01 Morbid (severe) obesity due to excess calories; Z86.718 Personal history of other venous thrombosis and embolism; Z79.01 Long term (current) use of anticoagulants; Z79.4 Long term (current) use of insulin; I70.25 Atherosclerosis of native arteries of other extremities with ulceration; L98.494 Non-pressure chronic ulcer of skin of other sites with necrosis of bone; M16.12 Unilateral primary osteoarthritis, left hip; M17.12 Unilateral primary osteoarthritis, left knee; I70.0 Atherosclerosis of aorta
CPT/HCPCS: 36415; 36569; 71010; 71045; 80048; 80053; 80061; 80202; 81001; 82270; 82607; 82746; 83036; 83540; 83605; 83735; 83880; 84439; 84443; 84466; 85025; 85610; 85730; 86140; 87040; 87086; 93005; 93306; 93925; 93971; 99284; J1650; J2543; J3370; J7030; Q9967

== ENCOUNTER 2017-10-27 15:16 | Inpatient (IN) | payer MEDICARE, OTHER ==
[~2017-10-27] VITALS: Ht 162.6 cm; Wt 116.1 kg
[~2017-10-27 15:16] MED LIST changes: +ASCORBIC ACID500 MG PO; +ASPIRIN EC81 MG PO; +Collagenase TP; +Hydrocodone/Apap 7.5MG-325MG PO; +Multivitamins/Minerals PO
--- OUTSIDE RECORDS SUMMARY | 2017-10-27 15:20 | XMS REPORT | Clinical Summary ---
Author Author CLAU [facility] Address Unknown Phone Unavailable Care Team Providers Care Wet Roller Name Role Phone PCP Unavailable Allergies Active Allergy Reactions Severity Noted Date Comments Clindamycin Itching, Nausea Only 05/21/2017 Hydromorphone (Bulk) Other (See Comments) 05/21/2017 "black out"-no recollection of what happened Methadone Other (See Comments) 05/21/2017 confusion Morphine Itching 05/21/2017 Current Medications Prescription Sig. Disp. Refills Start End Date Status Date pantoprazole (PROTONIX) Take 40 mg by mouth Active 40 MG tablet daily. furosemide (LASIX) 40 MG Take 40 mg by mouth 2 Active tablet (two) times daily. gabapentin (NEURONTIN) Take 800 mg by mouth 4 Active 800 MG tablet (four) times daily. pramipexole (MIRAPEX) 1 Take 2 mg by mouth 4 Active MG tablet (four) times daily. DULoxetine (CYMBALTA) 60 Take 60 mg by mouth 2 Active MG capsule (two) times daily. HYDROcodone-acetaminophen Take 1 tablet by mouth Active (NORCO 5-325) 5-325 mg every 6 (six) hours as per tablet needed for Pain. amitriptyline (ELAVIL) 10 Take 10 mg by mouth Active MG tablet nightly. metoprolol (LOPRESSOR) 25 Take 25 mg by mouth Active MG tablet nightly. mupirocin (BACTROBAN) 2 % Apply topically 2 (two) Active ointment times daily Open wound left heel . doxycycline (VIBRAMYCIN) Take 100 mg by mouth 2 05/13/20 05/28/20 Discontin 100 MG capsule (two) times daily. 17 17 ued docusate sodium (COLACE) Take 1 capsule (100 mg 30 capsule 0 05/28/20 06/07/20 100 MG capsule total) by mouth 3 (three) 17 17 times daily as needed for Constipation for up to 10 days. cephalexin (KEFLEX) 500 Take 1 capsule (500 mg 10 capsule 0 05/28/20 06/02/20 MG capsule total) by mouth 2 (two) 17 17 times daily for 5 days. acetaminophen-codeine Take 1 tablet by mouth 30 tablet 0 06/03/20 (TYLENOL #3) 300-30 mg every 4 (four) hours as 17 17 per tablet needed for Pain for up to 10 days. Max Daily Amount: 6 tablets Active Problems Problem Noted Date Back pain 06/03/2017 Chronic pain disorder 05/27/2017 Pre-op testing 05/27/2017 Encounters Date Type Specialty Care Team Description 06/03/2017 [facility] General Internal Medicine Gerald Villarreal MD - Encounter 06/04/2017 06/03/2017 Procedure Pass 06/03/2017 Surgery Gerald Villarreal MD INSERTION,SPINAL CORD NEUROSTIMULATOR 06/02/2017 Anesthesia Ashley Quigley Event MD Giuliana 05/27/2017 [facility] General Internal Medicine Gerald Villarreal MD Pre-op testing - Encounter 05/28/2017 05/27/2017 Procedure Pass 05/27/2017 Surgery Gerald Villarreal MD INSERTION,SPINAL CORD NEUROSTIMULATOR TRIAL 05/26/2017 Anesthesia Robb Jackson MD Event 05/21/2017 Hospital Gerald Villarreal MD Encounter 05/21/2017 [facility] Cardiology Gerald Villarreal MD Encounter 05/21/2017 Hospital Pre-Admission Testing Gerald Villarreal MD Encounter 05/21/2017 Hospital Pre-Admission Testing Gerald Villarreal MD Pre- op testing Encounter 05/09/2017 Orders Only Neurosurgery Gerald Villarreal MD Pre-op testing (Primary Dx) after 10/26/2016 Social History Tobacco Use Types Packs/Day Years Used Date Never Smoker Smokeless Tobacco: Never Used Alcohol Use Drinks/Week oz/Week Comments No Sex Assigned at Date Recorded Not on file Last Filed Vital Signs Vital Sign Reading Time Taken Blood Pressure 114/55 06/04/2017 7:04 AM MARKETING PROGRAM COORDINATOR Pulse 72 06/04/2017 7:04 AM MARKETING PROGRAM COORDINATOR Temperature 36.4 C (97.6 F) 06/04/2017 7:04 AM MARKETING PROGRAM COORDINATOR Respiratory Rate 16 06/04/2017 7:04 AM MARKETING PROGRAM COORDINATOR Oxygen Saturation 97% 06/04/2017 7:04 AM MARKETING PROGRAM COORDINATOR Inhaled Oxygen - - Concentration Weight 123 kg (271 lb 2.7 oz) 06/03/2017 8:18 AM MARKETING PROGRAM COORDINATOR Height 162.6 cm (5' 4") 06/03/2017 8:18 AM MARKETING PROGRAM COORDINATOR Body Mass Index 46.55 06/03/2017 8:18 AM MARKETING PROGRAM COORDINATOR Plan of Treatment Not on file Implants Implanted Type Area Refrigerated National Truck Driver Device Expiration Model / Identifier Date Serial / Lot Matrix Floseal Hemo W/O Ndl 10 Cement/Mono N/A: Spine HEDRICK:BIOSCI [id number] / [id number] - [id number] ler/Adhesi Thoracic / Implanted: Qty: 1 on 05/27/2017 by amber [id number] Gerald Villarreal MD Specify Surescan Mri 2x8 Neuro N/A: Spine [employer] 04/26/2020 [id number] / Implanted: Qty: 1 on 05/27/2017 by / Gerald Villarreal MD [id number] Intellis Adaptivestim Neuro N/A: Back [employer] 05/20/2018 [id number] / Implanted: Qty: 1 on 06/03/2017 by [id number] Gerald Villarreal MD / Kt Ext Neuro 1x8 40cm [id number] - Pain N/A: Spine [employer]:NEURO 02/11 [id number] / [id number] Mgmt/Stimu MODULATION [id number] Implanted: Qty: 1 on 05/27/2017 by Gerald Mcgrath MD [id number] Kt Ext Neuro 1x8 40cm [id number] - Pain N/A: Spine [employer]:NEURO 10/22 [id number] / [id number] Mgmt/Stimu MODULATION [id number] Implanted: Qty: 1 on 05/27/2017 by Gerald Mcgrath MD [id number] Procedures Procedure Name Priority Date/Time Associated Diagnosis Comments INSERTION,SPINAL CORD 06/03/2017 Chronic pain disorder NEUROSTIMULATOR 9:36 AM MARKETING PROGRAM COORDINATOR Special Needs (C-ARM, [employer]) PROCEDURE W/ C-ARM 05/27/2017 Chronic pain disorder 11:11 AM MARKETING PROGRAM COORDINATOR Special Needs (C-ARM,MED TRONIC) INSERTION,SPINAL CORD 05/27/2017 Chronic pain disorder NEUROSTIMULATOR TRIAL 11:11 AM MARKETING PROGRAM COORDINATOR Special Needs (C-ARM,MED TRONIC) after 10/26/2016 Results * RHYTHM STRIP - SCAN (05/29/2017 9:40 AM) * Basic Metabolic Panel (05/28/2017 9:12 AM) Only the most recent of 2 results within the time period is included. Component Value Ref Range Sodium 142 136 - 145 meq/L Potassium 3.2 (L) 3.5 - 5.1 meq/L Chloride 101 98 - 107 meq/L CO2 34 (H) 22 - 29 meq/L BUN 19 7 - 21 mg/dL Creatinine 0.78 0.57 - 1.25 mg/dL Glucose 80 70 - 105 mg/dL Calcium 8.6 8.4 - 10.2 mg/dL EGFR 73Comment: ESTIMATED GFR IS NOT ACCURATE mL/min/1.73 sq m CREATININE CLEARANCE IN PREDICTING GLOMERULAR FILTRATION RATE. ESTIMATED GFR IS NOT APPLICABLE FOR DIALYSIS PATIENTS. Specimen Performing Laboratory Blood - Arm, [facility] [address] [facility] [place] [address] * CBC with platelet count + automated diff (05/28/2017 9:07 AM) Only the most recent of 2 results within the time period is included. Component Value Ref Range WBC 8.9 3.5 - 10.5 K/ L RBC 3.66 (L) 3.93 - 5.22 M/ L Hemoglobin 10.3 (L) 11.2 - 15.7 GM/DL Hematocrit 34.8 34.1 - 44.9 % MCV 95.1 (H) 79.4 - 94.8 fL MCH 28.1 25.6 - 32.2 pg MCHC 29.6 (L) 32.2 - 35.5 GM/DL RDW 15.1 (H) 11.7 - 14.4 % Platelets 292 150 - 450 K/CU MM MPV 9.7 9.4 - 12.3 fL nRBC 0 0 - 0 /100 WBC % Neutros 77 % % Lymphs 17 % % Monos 5 % % Eos 0 % % Baso 0 % # Neutros 6.83 (H) 1.56 - 6.13 K/ L # Lymphs 1.55 1.18 - 3.74 K/ L # Monos 0.46 (H) 0.24 - 0.36 K/ L # Eos 0.03 (L) 0.04 - 0.36 K/ L # Baso 0.02 0.01 - 0.08 K/ L Immature 0 0 - 1 % Granulocytes-Relative Specimen Performing Laboratory Blood - Arm, Left [facility] [address] [address] * CBC with platelet count + automated diff (05/28/2017 9:07 AM) Only the most recent of 2 results within the time period is included. Specimen Performing Laboratory Blood Narrative The following orders were created for panel order CBC with platelet count + automated diff. Procedure Abnormality Status --------- - ------ CBC with platelet count ...[[id number]]AbnormalFinal result Please view results for these tests on the individual orders. * [place] dispatcher radioactive waste disposal in or 30 minute increments (05/27/2017 1:00 PM) Specimen Performing Laboratory GE RIS Narrative PROCEDURE PERFORMED IN O.R. - PLEASE REFER TO THE INTRAOPERATIVE REPORT. Procedure Note Interface, External Ris In - 06/10/2017 2:19 PM MARKETING PROGRAM COORDINATOR PROCEDURE PERFORMED IN O.R. - PLEASE REFER TO THE INTRAOPERATIVE REPORT. * TRANSFUSION SERVICE REPORT - SCAN (05/22/2017 5:47 PM) * XR chest 2 views (05/21/2017 12:55 PM) Specimen Performing Laboratory GE RIS Narrative FINAL REPORT Chest, PA and lateral. History: Preoperative evaluation. Comparison: None available. Discussion:The cardiomediastinal silhouette and pulmonary vasculature are within normal limits. The lungs are clear without evidence of consolidation or effusion.There are no acute osseous abnormalities. Patient is status post posterior spinal fusion from the midthoracic level through the lumbar spine. Patient status post left shoulder arthroplasty. IMPRESSION: No acute cardiopulmonary abnormality. Signed: Savage Snyder MD Report Verified Date/Time:05/21/2017 13:40:14 Reading Location: [facility] Radiology Reading Room Procedure Note Interface, External Ris In - 05/21/2017 1:42 PM MARKETING PROGRAM COORDINATOR FINAL REPORT Chest, PA and lateral. History: Preoperative evaluation. Comparison: None available. Discussion: The cardiomediastinal silhouette and pulmonary vasculature are within normal limits. The lungs are clear without evidence of consolidation or effusion. There are no acute osseous abnormalities. Patient is status post posterior spinal fusion from the midthoracic level through the lumbar spine. Patient status post left shoulder arthroplasty. IMPRESSION: No acute cardiopulmonary abnormality. Signed: Savage Snyder MD Report Verified Date/Time: 05/21/2017 13:40:14 Reading Location: [address] Radiology Reading Room * ECG 12 lead (05/21/2017 12:10 PM) Specimen Performing Laboratory [place] [facility] Narrative Ventricular Rate 81 BPM Atrial Rate 81 BPM P-R Interval 184 ms QRS Duration 94 ms Q-T Interval 368 ms QTC Calculation(Bazett) 427 ms P [place] 33 degrees R [place] 28 degrees T [place] 79 degrees Sinus rhythm with marked sinus arrhythmia Otherwise normal ECG No previous ECGs available Confirmed by Jaylin PEREZ BASANT ([id number]) on 05/22/2017 9:05:17 AM Procedure Note Interface, External Ris In - 05/22/2017 9:05 AM MARKETING PROGRAM COORDINATOR Ventricular Rate 81 BPM Atrial Rate 81 BPM P-R Interval 184 ms QRS Duration 94 ms Q-T Interval 368 ms QTC Calculation(Bazett) 427 ms P [place] 33 degrees R [place] 28 degrees T [place] 79 degrees Sinus rhythm with marked sinus arrhythmia Otherwise normal ECG No previous ECGs available Confirmed by Jaylin PEREZ BASANT ([id number]) on 05/22/2017 9:05:17 AM * Urinalysis w/Microscopic + Reflex to Culture (05/21/2017 12:09 PM) Component Value Ref Range Color, UA Yellow Clarity, UA Clear Specific [place], UA 1.024 1.001 - 1.035 pH, UA 7.0 5.0 - 8.0 Protein, UA 20 mg/dL (A) Negative Glucose, UA Negative Negative Ketones, UA Negative Negative Bilirubin, UA Negative Negative Blood, UA Negative Negative Nitrite, UA Negative Negative Leukocytes, UA Negative Negative Urobilinogen, UA 2.0 (H) 0.2 - 1.0 mg/dL RBC, UA 1 /HPF WBC, UA 1 /HPF Bacteria, UA Occasional Mucus Rare Squam Epithel, UA 2 /HPF Specimen Source Specimen Performing Laboratory Urine [address] [address] * Type and screen, automated (05/21/2017 12:09 PM) Component Value Ref Range ABO/RH AUTOMATED (BEAKER) O POSITIVE Ab Scrn NEGATIVE Specimen Performing Laboratory Blood [address] [address] * aPTT (05/21/2017 12:08 PM) Component Value Ref Range PTT 31.9 22.5 - 36.0 seconds Specimen Performing Laboratory Blood [address] [address] * Prothrombin time/INR (05/21/2017 12:08 PM) Component Value Ref Range Protime 14.4 11.7 - 14.7 seconds INR 1.1 <=5.9 Specimen Performing Laboratory Blood [address] [address] Narrative RECOMMENDED COUMADIN/WARFARIN INR THERAPY RANGES STANDARD DOSE: 2.0 - 3.0 Includes: PROPHYLAXIS for venous thrombosis, systemic embolization; TREATMENT for venous thrombosis and/or pulmonary embolus. HIGH RISK: Target INR is 2.5-3.5 for patients with mechanical heart valves. after 10/26/2016
--- OUTSIDE RECORDS SUMMARY | 2017-10-27 15:20 | XMS REPORT ---
Author Author [facility] Address Unknown Phone Unavailable Care Team Providers Care Tractor Trailer Technician Name Role Phone MANDI REBOLLAR Unavailable Unavailable [place] LU Unavailable Unavailable Problems This patient has no known problems. Allergies, Adverse Reactions, Alerts This patient has no known allergies or adverse reactions. Medications This patient has no known medications. Results Test Description Test Time Test Comments Text Results Atomic Results Result Comments AUSTIN NARVAEZ IN OR/30 MINUTE INCREMENTS 2017-06-10 14:19:00 Reason for exam:- >TRIAL OF SPINAL CORD STIMULATOR VIA LAMINECTOMY PROCEDURE PERFORMED IN O.R. - PLEASE REFER TO THE INTRAOPERATIVE REPORT. C METABOLIC PANEL 2017-05-28 10:13:00 SODIUM (BEAKER) (test qhqn=637) 142 meq/L 136-145 POTASSIUM (BEAKER) (test hrlw=315) 3.2 meq/L 3.5-5.1 CHLORIDE (BEAKER) (test snak=617) 101 meq/L 98-107 CO2 (BEAKER) (test fcep=051) 34 meq/L 22-29 BLOOD UREA NITROGEN (BEAKER) (test teff=963) 19 mg/dL 7-21 CREATININE (BEAKER) (test ngqd=784) 0.78 mg/dL 0.57-1.25 GLUCOSE RANDOM (BEAKER) (test xazm=053) 80 mg/dL 70-105 CALCIUM (BEAKER) (test ddzn=115) 8.6 mg/dL 8.4-10.2 EGFR (BEAKER) (test vejj=6248) 73 mL/min/1.73 sq m ESTIMATED GFR IS NOT ACCURATE CREATININE CLEARANCE IN PREDICTING GLOMERULAR FILTRATION RATE. ESTIMATED GFR IS NOT APPLICABLE FOR DIALYSIS PATIENTS. CBC W/PLT COUNT & AUTO [id number] 09:49:00* Test Item Value Reference Range Comments WHITE BLOOD CELL COUNT (BEAKER) (test zkny=700) 8.9 K/ L 3.5-10.5 RED BLOOD CELL COUNT (BEAKER) (test clhk=150) 3.66 M/ L 3.93-5.22 HEMOGLOBIN (BEAKER) (test vjsc=444) 10.3 GM/DL 11.2-15.7 HEMATOCRIT (BEAKER) (test tpqd=269) 34.8 % 34.1-44.9 MEAN CORPUSCULAR VOLUME (BEAKER) (test fozw=011) 95.1 fL 79.4-94.8 MEAN CORPUSCULAR HEMOGLOBIN (BEAKER) (test imev=587) 28.1 pg 25.6-32.2 MEAN CORPUSCULAR HEMOGLOBIN CONC (BEAKER) (test paas=850) 29.6 GM/DL 32.2- 35.5 RED CELL DISTRIBUTION WIDTH (BEAKER) (test srpf=593) 15.1 % 11.7-14.4 PLATELET COUNT (BEAKER) (test pxct=559) 292 K/CU MM 150-450 MEAN PLATELET VOLUME (BEAKER) (test jaxt=890) 9.7 fL 9.4-12.3 NUCLEATED RED BLOOD CELLS (BEAKER) (test opqm=907) 0 /100 WBC 0-0 NEUTROPHILS RELATIVE PERCENT (BEAKER) (test ojlx=419) 77 % LYMPHOCYTES RELATIVE PERCENT (BEAKER) (test mebn=965) 17 % MONOCYTES RELATIVE PERCENT (BEAKER) (test jzva=894) 5 % EOSINOPHILS RELATIVE PERCENT (BEAKER) (test gnmn=348) 0 % BASOPHILS RELATIVE PERCENT (BEAKER) (test ixdr=592) 0 % NEUTROPHILS ABSOLUTE COUNT (BEAKER) (test mybm=908) 6.83 K/ L 1.56-6.13 LYMPHOCYTES ABSOLUTE COUNT (BEAKER) (test chdw=995) 1.55 K/ L 1.18-3.74 MONOCYTES ABSOLUTE COUNT (BEAKER) (test yqvr=872) 0.46 K/ L 0.24-0.36 EOSINOPHILS ABSOLUTE COUNT (BEAKER) (test kkmn=794) 0.03 K/ L 0.04-0.36 BASOPHILS ABSOLUTE COUNT (BEAKER) (test gjvi=378) 0.02 K/ L 0.01-0.08 IMMATURE GRANULOCYTES-RELATIVE PERCENT (BEAKER) (test amzm=4716) 0 % 0-1 BASIC METABOLIC [id number] 13:45:00* Test Item Value Reference Range Comments SODIUM (BEAKER) (test odcz=424) 142 meq/L 136-145 POTASSIUM (BEAKER) (test zxaw=538) 3.5 meq/L 3.5-5.1 CHLORIDE (BEAKER) (test fdxz=411) 96 meq/L 98-107 CO2 (BEAKER) (test ozra=037) 38 meq/L 22-29 BLOOD UREA NITROGEN (BEAKER) (test bjwr=637) 20 mg/dL 7-21 CREATININE (BEAKER) (test gfrb=312) 0.76 mg/dL 0.57-1.25 GLUCOSE RANDOM (BEAKER) (test onvg=492) 84 mg/dL 70-105 CALCIUM (BEAKER) (test nqwx=297) 9.2 mg/dL 8.4-10.2 EGFR (BEAKER) (test ykpo=7833) 75 mL/min/1.73 sq m ESTIMATED GFR IS NOT ACCURATE CREATININE CLEARANCE IN PREDICTING GLOMERULAR FILTRATION RATE. ESTIMATED GFR IS NOT APPLICABLE FOR DIALYSIS PATIENTS. RAD, CHEST, 2 [id number] 13:40:00Reason for exam:->pre op testingFINAL REPORT Chest, PA and lateral. History: Preoperative [...] IMPRESSION: No acute cardiopulmonary abnormality. Signed: Savage Snydereport Verified Date/Time: 05/21/2017 13:40:14 Reading Location: [address] Radiology Reading Room ALYSIS W/ REFLEX URINE [id number] 13:33:00* Test Item Value Reference Range Comments COLOR (BEAKER) (test ryex=230) Yellow CLARITY (BEAKER) (test lpyw=717) Clear SPECIFIC GRAVITY UA (BEAKER) (test jgvb=982) 1.024 1.001-1.035 PH UA (BEAKER) (test xwrm=389) 7.0 5.0-8.0 PROTEIN UA (BEAKER) (test lvzk=091) 20 mg/dL Negative GLUCOSE UA (BEAKER) (test ovag=525) Negative Negative KETONES UA (BEAKER) (test azjp=245) Negative Negative BILIRUBIN UA (BEAKER) (test tltr=459) Negative Negative BLOOD UA (BEAKER) (test oapf=566) Negative Negative NITRITE UA (BEAKER) (test xsky=147) Negative Negative LEUKOCYTE ESTERASE UA (BEAKER) (test bjcs=336) Negative Negative UROBILINOGEN UA (BEAKER) (test usya=339) 2.0 mg/dL 0.2-1.0 RBC UA (BEAKER) (test njaf=848) 1 /HPF WBC UA (BEAKER) (test rgkb=001) 1 /HPF BACTERIA (BEAKER) (test buji=823) Occasional MUCUS (BEAKER) (test tsru=6732) Rare SQUAMOUS EPITHELIAL (BEAKER) (test quvw=525) 2 /HPF SOURCE(BEAKER) (test dhzk=3305) [id number] 13:26:00* Test Item Value Reference Range Comments PARTIAL THROMBOPLASTIN TIME (BEAKER) (test kskn=791) 31.9 seconds 22.5-36.0 PROTHROMBIN TIME/[id number] 13:25:00* Test Item Value Reference Range Comments PROTIME (BEAKER) (test scky=653) 14.4 seconds 11.7-14.7 INR (BEAKER) (test ncum=839) 1.1 <=5.9 RECOMMENDED COUMADIN/WARFARIN INR THERAPY RANGESSTANDARD DOSE: 2.0 - 3.0 Includes: PROPHYLAXIS for venous thrombosis, systemic embolization; TREATMENT for venous thrombosis and/or pulmonary embolus.HIGH RISK: Target INR is 2.5-3.5 for patients with mechanical heart valves.CBC W/PLT COUNT & AUTO [id number] 13:08:00* Test Item Value Reference Range Comments WHITE BLOOD CELL COUNT (BEAKER) (test jpmc=260) 7.7 K/ L 3.5-10.5 RED BLOOD CELL COUNT (BEAKER) (test vrid=739) 3.81 M/ L 3.93-5.22 HEMOGLOBIN (BEAKER) (test kqpg=835) 10.7 GM/DL 11.2-15.7 HEMATOCRIT (BEAKER) (test kiuj=633) 35.7 % 34.1-44.9 MEAN CORPUSCULAR VOLUME (BEAKER) (test qqpz=004) 93.7 fL 79.4-94.8 MEAN CORPUSCULAR HEMOGLOBIN (BEAKER) (test ufif=173) 28.1 pg 25.6-32.2 MEAN CORPUSCULAR HEMOGLOBIN CONC (BEAKER) (test utot=225) 30.0 GM/DL 32.2- 35.5 RED CELL DISTRIBUTION WIDTH (BEAKER) (test kbrz=157) 15.0 % 11.7-14.4 PLATELET COUNT (BEAKER) (test xumy=967) 272 K/CU MM 150-450 MEAN PLATELET VOLUME (BEAKER) (test vjfk=341) 10.4 fL 9.4-12.3 NUCLEATED RED BLOOD CELLS (BEAKER) (test edeo=266) 0 /100 WBC 0-0 NEUTROPHILS RELATIVE PERCENT (BEAKER) (test uwov=769) 71 % LYMPHOCYTES RELATIVE PERCENT (BEAKER) (test stig=335) 16 % MONOCYTES RELATIVE PERCENT (BEAKER) (test yyzn=439) 10 % EOSINOPHILS RELATIVE PERCENT (BEAKER) (test pzwa=766) 2 % BASOPHILS RELATIVE PERCENT (BEAKER) (test ahts=732) 0 % NEUTROPHILS ABSOLUTE COUNT (BEAKER) (test xqdm=329) 5.48 K/ L 1.56-6.13 LYMPHOCYTES ABSOLUTE COUNT (BEAKER) (test lgdr=723) 1.21 K/ L 1.18-3.74 MONOCYTES ABSOLUTE COUNT (BEAKER) (test sdjc=109) 0.77 K/ L 0.24-0.36 EOSINOPHILS ABSOLUTE COUNT (BEAKER) (test rguv=027) 0.17 K/ L 0.04-0.36 BASOPHILS ABSOLUTE COUNT (BEAKER) (test hgpi=587) 0.02 K/ L 0.01-0.08 IMMATURE GRANULOCYTES-RELATIVE PERCENT (BEAKER) (test bfgu=5016) 0 % 0-1 CT FOOT LEFT W [facility] [address] [place] [address] Patient Name: LAKEISHA GIL MR # : [id number] : 1945 Age/Sex: 71/F Req #: [id number] Adm Physician: MANDI REBOLLAR MD Ordered by: CLIFFORD BOJORQUEZ DPM Report #: [id number] Location: MED/SURG2 Room/Bed: [facility] _ Procedure: [id number] CT/CT FOOT LEFT W Exam Date: 07/20/17 Exam Time: 011 REPORT STATUS: Signed CT FOOT LEFT W Clinical history: Osteomyelitis, edema, cellulitis Technique: Volumetric CT scan of the left foot foot was performed. 100 mL of Isovue-370 was administered. Coronal, sagittal and axial images are generated from source data. Comparison: None Findings: Bones/Soft tissues: There is marked soft tissue edema with ulceration and fluid/phlegmon along the inferior posterior aspect of the calcaneus. Underlying cortical/bony destruction is seen involving the inferior posteromedial calcaneus. No fractures or dislocations. Moderate midfoot degenerative changes. Chronic ossicles adjacent to the medial malleolus and posterior talus suggesting prior trauma. Mild tibiotalar joint space narrowing/degenerative change, worse medially with likely reactive talar sclerosis. Overall, there is decreased bone mineralization. 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 Nonemergent follow-up MRI could performed to evaluate extent of disease. Signed by: Dr Bonita Monterroso MD on 07/20/2017 2:03 AM Dictated By: BONITA MONTERROSO MD 2 Transcribed By: GEOFFREY on 07/20/17202 COPY TO: CLIFFORD BOJORQUEZ DPM HIP RIGHT 2-3 VW (+/- PELVIS) [place] [address] Patient Name: LAKEISHA GIL MR #: [id number] : 1945 Age/Sex: 71/F Req #: [id number] Adm Physician: MANDI REBOLLAR MD Ordered by: MANDI REBOLLAR MD Report #: [id number] Location: MED/SURG2 Room/Bed: [facility] ___ Procedure: [id number] DX/HIP RIGHT 2-3 VW (+/- PELVIS) Exam Date: Exam Time: REPORT STATUS: Signed RIGHT HIP X- RAY - 3 VIEWS HISTORY: COMPARISON: None available. FINDINGS: Bones: No acute displaced fracture. Partially visualized hardware in the lower lumbar spine. Osseous alignment is within normal limits. Joints: Degenerative changes of both sacroiliac joints and acetabular femoral joints. Soft tissues: The soft tissues appear unremarkable. Partially visualized metallic device in the left lower quadrant. IMPRESSION: No acute radiographic abnormality. Signed by: Dr. Fatuma Tejada M.D. on 07/19/2017 6:11 PM Dictated By: FATUMA TEJADA MD 10 Transcribed By: GEOFFREY on 07/19/171810 COPY TO: MANDI REBOLLAR MD KNEE RIGHT 1-2 VIEWS [place] [address] Patient Name: LAKEISHA GIL MR #: [id number] : 1945 Age/Sex: 71/F Req #: [id number] Adm Physician: MANDI REBOLLAR MD Ordered by: MANDI REBOLLAR MD Report #: [id number] Location: MED/SURG2 Room/ Bed: [facility] Procedure: [id number] DX/KNEE RIGHT 1-2 VIEWS Exam Date: 07/19/17 Exam Time: 1715 REPORT STATUS: Signed RIGHT KNEE X-RAY - 3 VIEWS HISTORY: COMPARISON: None available. FINDINGS: Bones: No acute displaced fracture. Osseous alignment is within normal limits. Joints: Moderate tricompartmental degenerative changes. Soft tissues: The soft tissues appear unremarkable. IMPRESSION: No acute radiographic abnormality. Signed by: Dr. Fatuma Tejada M.D. on 07/19/2017 6: 12 PM Dictated By: FATUMA TEJADA MD 11 Transcribed By: GEOFFREY on 1811 COPY TO: MANDI REBOLLAR MD CHEST SINGLE (PORTABLE) [place] [address] Patient Name: LAKEISHA GIL MR #: [id number] : 12/1945 Age/Sex: 71/F Req #: [id number] Adm Physician: MANDI REBOLLAR MD Ordered by: MANDI REBOLLAR MD Report #: [id number] Location: MED/SURG2 Room/Bed: [facility] Procedure: [id number] DX/CHEST SINGLE (PORTABLE) Exam Date: 07/19/17 Exam Time: 0955 REPORT STATUS: Signed EXAMINATION: CHEST SINGLE ( PORTABLE) INDICATION: COMPARISON: None FINDINGS: AP view Findings: Stable cardiac silhouette, visualized thoracic hardware, left humeral arthroplasty and neurostimulator leads. Motion artifact without visualized consolidation or pneumothorax. Impression: 1. Lines/Tubes: Right PICC tip overlies the expected cavoatrial junction. 2. Bilateral central pulmonary vascular congestion, new since prior exam. Signed by: Dr. Fatuma Tejada M.D. on 07/19/2017 10:37 AM Dictated By: FATUMA TEJADA MD 1037 Transcribed By: GEOFFREY on 1037 COPY TO: MANDI REBOLLAR MD CHEST XRAY LINE PLACEMENT [place] [address] Patient Name: LAKEISHA GIL MR #: [id number] : 1945 Age/Sex: 71/F Req #: [id number] Adm Physician : MANDI REBOLLAR MD Ordered by: MANDI REBOLLAR MD Report #: [id number] Location: MED/SURG2 Room/Bed: [facility] Procedure: [id number] DX/CHEST XRAY LINE PLACEMENT Exam Date: Exam Time: REPORT STATUS: Signed CHEST XRAY LINE PLACEMENT, 07/19/2017 3:38 AM Technique: CHEST XRAY LINE PLACEMENT Comparison: 07/19/2016 Clinical history: PICC line placement advancement Findings: Stable cardiac silhouette, visualized thoracic hardware, left humeral arthroplasty and neurostimulator leads. Motion artifact without visualized consolidation or pneumothorax. Impression: 1. Lines/Tubes: Right PICC tip overlies the expected cavoatrial junction. 2. No acute abnormality. Signed by: Dr Bonita Monterroso MD on 07/19/2017 4:42 AM Dictated By: BONITA MONTERROSO MD 1 Transcribed By: GEOFFREY on 07/19/17441 COPY TO: MANDI REBOLLAR MD CHEST XRAY LINE PLACEMENT [place] [address] Patient Name: LAKEISHA GIL MR # : [id number] : 1945 Age/Sex: 71/F Req #: [id number] Adm Physician: MANDI REBOLLAR MD Ordered by: MANDI REBOLLAR MD Report #: [id number] [facility]: [facility]/SURG Room/Bed: [facility] _ Procedure: [id number] DX/CHEST XRAY LINE PLACEMENT Exam Date: Exam Time: REPORT STATUS: Signed CHEST XRAY LINE PLACEMENT, 07/18/2017 11:19 PM Technique: CHEST XRAY LINE PLACEMENT Comparison: 10/04/2016 Clinical history: PICC line placement Findings: Stable mildly enlarged cardiac silhouette, visualized thoracic rods, left humeral arthroplasty and neurostimulator leads. No edema or consolidation, pleural effusion or pneumothorax. Impression: 1. Lines/Tubes: Right PICC tip overlies the expected central subclavian vein. 2. No acute abnormality. Signed by: Dr Bonita Monterroso MD on 07/19/2017 12:48 AM Dictated By: BONITA MONTERROSO MD Transcribed By: GEOFFREY on 07/19/1747 COPY TO: MANDI REBOLLAR MD FOOT LEFT COMPLETE [place] [address] Patient Name: LAKEISHA GIL MR #: [id number] : 1945 Age/Sex: 71/F Req #: [id number] [facility] Physician: MANDI REBOLLAR MD Ordered by: LENNOX GONZALEZ Report #: [id number] Location: [facility] Room/Bed: [place] [address] Procedure: [id number] DX/FOOT LEFT COMPLETE Exam Date: 07/18/17 Exam Time: 1515 REPORT STATUS: Signed PROCEDURE: X-RAY LEFT FOOT, COMPLETE COMPARISON: None. INDICATIONS: LEFT HEEL WOUND FINDINGS: 3 views of the left foot PA, lateral, and oblique). Soft tissue defect over the heel. There are questionable erosive changes of the calcaneus. The bones are diffusely osteopenic. Questionable regional osteopenia the calcaneus. Small calcaneal heel spur. Degenerative changes at the midfoot. CONCLUSION: Soft tissue defect over the heel. There are findings which are suspicious for osteomyelitis of the calcaneus. Recommend MRI of the hindfoot (with and without contrast) for better evaluation. Dictated by: Lyle Mcmillan M.D. on 07/18/2017 at 16:19 Electronically approved by: Lyle Mcmillan M.D. on 07/18/2017 at 16:19 Dictated By: LYLE MCMILLAN MD 18 Transcribed By: KELLY on 07/18/171618 COPY TO: LENNOX GONZALEZ
[2017-10-27] MEDS ORDERED: VANCOMYCIN 1GM/NS 250 ML 250 ML IV STA (16:25)
[2017-10-27] MEDS ORDERED: ONDANSETRON HCL 4 MG ORAL DISINTEGRATING TAB PO ONE (16:30)
[2017-10-27 16:37] LABS: BASOPHILS % 0.4 % (0.0-1.0); EOSINOPHILS # (AUTO) 0.2 (0.0-0.4); EOSINOPHILS % 2.2 % (0.0-6.0); HEMATOCRIT 35.5 % (34.2-44.1); HEMOGLOBIN 11.1 g/dL (12.0-16.0); LYMPHOCYTES # (AUTO) 1.1 (1.0-3.2); LYMPHOCYTES % 12.4 % (18.0-39.1); MEAN CORPUSCULAR HEMOGLOBIN 28.8 pg (28-32); MEAN CORPUSCULAR HGB CONC 31.3 g/dL (31-35); MONOCYTES # (AUTO) 0.8 (0.2-0.8); MONOCYTES % 8.8 % (4.4-11.3); NEUTROPHILS # (AUTO) 6.9 (2.1-6.9); NEUTROPHILS % 75.9 % (38.7-80.0); PLATELET COUNT 351 x10e3/uL (140-360); RED BLOOD COUNT 3.86 x10e6/uL (3.6-5.1); RED CELL DISTRIBUTION WIDTH 17.2 % (11.7-14.4)
[2017-10-27 16:52] LABS: ALANINE AMINOTRANSFERASE 12 IU/L (0-55); ALBUMIN 2.9 g/dL (3.5-5.0); ALBUMIN/GLOBULIN RATIO 0.5 (0.8-2.0); ALKALINE PHOSPHATASE 108 IU/L (40-150); ANION GAP 12.3 mmol/L (8-16); BLOOD UREA NITROGEN 22 mg/dL (7-26); BUN/CREATININE RATIO 28 (6-25); CALCIUM 9.2 mg/dL (8.4-10.2); CARBON DIOXIDE 31 mmol/L (22-29); CHLORIDE 100 mmol/L (98-107); EST GLOMERULAR FILTRATION RATE > 60 ML/MIN (60-); GLUCOSE 97 mg/dL (74-118); POTASSIUM 3.3 mmol/L (3.5-5.1); SODIUM 140 mmol/L (136-145)
--- NOTE | 2017-10-27 17:40 | Diagnostic Imaging Report ---
PROCEDURE: A single AP view of the chest. COMPARISON: 07/19/17 INDICATIONS: FEVER, WEAKNESS FINDINGS: Lines/tubes: The distal leads of spine stimulator device are visualized. Lungs: Limited by body habitus and low lung volumes. No focal consolidation. Pleura: There is no pleural effusion or pneumothorax. Heart and mediastinum: Cardiac silhouette is mildly prominent. Bones: Thoracolumbar posterior fusion. The visualized hardware is intact. Left shoulder arthroplasty. IMPRESSION: No definite acute cardiopulmonary disease. Dictated by: Osmar Gomez M.D. on 10/27/2017 at 17:41 Electronically approved by: Osmar Gomez M.D. on 10/27/2017 at 17:42
[2017-10-27 18:50] LABS: BILIRUBIN,URINE NEGATIVE (NEGATIVE); CLARITY,URINE SL CLOUDY (CLEAR); COLOR,URINE YELLOW (YELLOW); KETONES,URINE TRACE (NEGATIVE); LEUKOCYTE ESTERASE ,URINE NEGATIVE (NEGATIVE); NITRITE,URINE NEGATIVE (NEGATIVE); PROTEIN,URINE DIPSTICK 1+ (NEGATIVE); URINE UROBILINOGEN 0.2 mg/dL (0.2 - 1)
[2017-10-27 19:01] LABS: BACTERIA,URINE MODERATE /HPF; EPITHELIAL CELLS,URINE MODERATE /LPF; WBC,URINE (MAN) 0-5 /HPF (0-5)
[2017-10-27] MEDS ORDERED: SODIUM CHLORIDE FLUSH 10 ML SYR INJ PRN (19:30)
--- OUTSIDE RECORDS SUMMARY | 2017-10-27 19:39 | XMS REPORT | Clinical Summary ---
Author Author [facility] Address Unknown Phone Unavailable Care Team Providers Care Programmer Operator Numerical Control Name Role Phone PCP Unavailable Allergies Active [...] Date Type Specialty Care Team Description 06/03/2017 [facility] General Internal Medicine Gerald Villarreal MD - Encounter 06/04/2017 06/03/2017 Procedure Pass 06/03/2017 Surgery Gerald Villarreal MD INSERTION,SPINAL CORD NEUROSTIMULATOR 06/02/2017 Anesthesia Ashley Quigley Event MD Giuliana 05/27/2017 [facility] General Internal Medicine Gerald Villarreal MD Pre-op testing - Encounter 05/28/2017 05/27/2017 Procedure Pass 05/27/2017 Surgery Gerald Villarreal MD INSERTION,SPINAL CORD NEUROSTIMULATOR TRIAL 05/26/2017 Anesthesia Robb Jackson MD Event 05/21/2017 Hospital Gerald Villarreal MD Encounter 05/21/2017 [facility] Cardiology Gerald Villarreal MD Encounter [...] Taken Blood Pressure 114/55 06/04/2017 7:04 AM FISHING [facility] Pulse 72 06/04/2017 7:04 AM [facility]ING [facility] Temperature 36.4 C (97.6 F) 06/04/2017 7:04 AM FISHING [facility] Respiratory Rate 16 06/04/2017 7:04 AM FISHING HAND Oxygen Saturation 97% 06/04/2017 7:04 AM FISHING HAND Inhaled Oxygen - - Concentration Weight 123 kg (271 lb 2.7 oz) 06/03/2017 8:18 AM [facility]ING [facility] Height 162.6 cm (5' 4") 06/03/2017 8:18 AM FISHING HAND Body Mass Index 46.55 06/03/2017 8:18 AM [facility]ING HAND Plan of Treatment Not on file Implants Implanted Type Area Lead Case Manager Device Expiration Model / Identifier Date Serial / Lot Matrix Floseal Hemo W/O Ndl 10 Cement/Mono N/A: Spine HEDRICK:BIOSCI [id number] / [id number] - [id number] ler/Adhesi Thoracic / Implanted: Qty: 1 on 05/27/2017 by amber [id number] Gerald Villarreal MD Specify Surescan Mri 2x8 Neuro N/A: Spine [employer] 04/26/2020 [id number] / Implanted: Qty: 1 on 05/27/2017 by / Gerald Villarreal MD [id number] Intellis Adaptivestim Neuro N/A: Back MEDTRONIC 05/20/2018 [id number] / Implanted: Qty: 1 on 06/03/2017 by [id number] Gerald Villarreal MD / Kt Ext Neuro 1x8 40cm [id number] - Pain N/A: Spine [employer]:NEURO 02/11 [id number] / [id number] Mgmt/Stimu MODULATION [id number] Implanted: Qty: 1 on 05/27/2017 by Gerald Mcgrath MD [id number] Kt Ext Neuro 1x8 40cm [id number] - Pain N/A: Spine [employer]:NEURO 10/22 [id number] / [id number] Mgmt/Stimu MODULATION [id number] Implanted: Qty: 1 on 05/27/2017 by Gerald Mcgrath MD [id number] Procedures Procedure Name Priority Date/Time Associated Diagnosis Comments INSERTION,SPINAL CORD 06/03/2017 Chronic pain disorder NEUROSTIMULATOR 9:36 AM FISHING [facility] Special Needs (C-ARM, [employer]) PROCEDURE W/ C-ARM 05/27/2017 Chronic pain disorder 11:11 AM [facility]ING [facility] Special Needs (C-ARM,MED TRONIC) INSERTION,SPINAL CORD 05/27/2017 Chronic pain disorder NEUROSTIMULATOR TRIAL 11:11 AM FISHING [facility] Special Needs (C-ARM,MED TRONIC) after 10/26/2016 Results [...] PATIENTS. Specimen Performing Laboratory Blood - Arm, [facility] [address] [place] [address] * CBC with platelet count + automated [...] Performing Laboratory Blood - Arm, Left [facility] [address] [address] * CBC with platelet count + automated diff (05/28/2017 9:07 AM) Only the most recent of 2 results within the time period is included. Specimen Performing Laboratory Blood Narrative The following orders were created for panel order CBC with platelet count + automated diff. Procedure Abnormality Status --------- - ------ CBC with platelet count ...[[id number]]AbnormalFinal result Please view results for these tests on the individual orders. * [place] international trade analyst in or 30 minute increments (05/27/2017 1:00 PM) Specimen Performing Laboratory GE RIS Narrative PROCEDURE PERFORMED IN O.R. - PLEASE REFER TO THE INTRAOPERATIVE REPORT. Procedure Note Interface, External Ris In - 06/10/2017 2:19 PM FISHING [facility] PROCEDURE PERFORMED IN O.R. - PLEASE REFER [...] External Ris In - 05/21/2017 1:42 PM FISHING [facility] FINAL REPORT Chest, PA and lateral. History: [...] Report Verified Date/Time: 05/21/2017 13:40:14 Reading Location: [address] Radiology Reading Room * ECG 12 lead (05/21/2017 12:10 PM) Specimen Performing Laboratory [employer] MUSE Narrative Ventricular Rate 81 BPM Atrial Rate 81 BPM P-R Interval 184 ms QRS Duration 94 ms Q-T Interval 368 ms QTC Calculation(Bazett) 427 ms P [place] 33 degrees R [place] 28 degrees T [place] 79 degrees Sinus rhythm with marked sinus arrhythmia Otherwise normal ECG No previous ECGs available Confirmed by Jaylin PEREZ BASANT ([id number]) on 05/22/2017 9:05:17 AM Procedure Note Interface, External Ris In - 05/22/2017 9:05 AM FISHING HAND Ventricular Rate 81 BPM Atrial Rate 81 BPM P-R Interval 184 ms QRS Duration 94 ms Q-T Interval 368 ms QTC Calculation(Bazett) 427 ms P [place] 33 degrees R [place] 28 degrees T [place] 79 degrees Sinus rhythm with marked sinus arrhythmia Otherwise normal ECG No previous ECGs available Confirmed by Jaylin PEREZ BASANT ([id number]) on 05/22/2017 9:05:17 AM * Urinalysis w/Microscopic + Reflex to Culture (05/21/2017 12:09 PM) Component Value Ref Range Color, UA Yellow Clarity, UA Clear Specific [place], UA 1.024 1.001 - 1.035 pH, UA [...] /HPF Specimen Source Specimen Performing Laboratory Urine [address] [address] * Type and screen, automated (05/21/2017 12:09 PM) Component Value Ref Range ABO/RH AUTOMATED (BEAKER) O POSITIVE Ab Scrn NEGATIVE Specimen Performing Laboratory Blood [address] [address] * aPTT (05/21/2017 12:08 PM) Component Value Ref Range PTT 31.9 22.5 - 36.0 seconds Specimen Performing Laboratory Blood [address] [address] * Prothrombin time/INR (05/21/2017 12:08 PM) Component Value Ref Range Protime 14.4 11.7 - 14.7 seconds INR 1.1 <=5.9 Specimen Performing Laboratory Blood [address] [address] Narrative RECOMMENDED COUMADIN/WARFARIN INR THERAPY RANGES STANDARD DOSE: 2.0 - 3.0 Includes: PROPHYLAXIS for venous thrombosis, systemic embolization; TREATMENT for venous thrombosis and/or pulmonary embolus. HIGH RISK: Target INR is 2.5-3.5 for patients with mechanical heart valves. after 10/26/2016
[2017-10-27] MEDS: HYDROCODONE/APAP 7.5MG-325MG 1 EA TAB PO PRN (19:48)
[2017-10-27] MEDS: PIPER-TAZ 3.375 GM 100 ML IV SCH (19:49)
[2017-10-27 20:52] VITALS: BP 100/51
[2017-10-27 21:00] VITALS: BP 100/51
[2017-10-28] VITALS: BP 97/47
[2017-10-28] MEDS ORDERED: BUMETANIDE1 MG PO (00:19)
[2017-10-28] MEDS ORDERED: AMITRIPTYLINE H10 MG PO (00:19)
[2017-10-28] MEDS: HYDROCODONE/APAP 7.5MG-325MG 1 EA TAB PO PRN ×2 (04:15→15:39)
[2017-10-28] MEDS ORDERED: SODIUM CHLORIDE 0.9% 250ML 250 ML ONE (05:19)
[2017-10-28] MEDS: PIPER-TAZ 3.375 GM 100 ML IV SCH ×3 (05:30→20:40)
[2017-10-28 06:47] LABS: BASOPHILS % 0.4 % (0.0-1.0); EOSINOPHILS # (AUTO) 0.3 (0.0-0.4); EOSINOPHILS % 4.5 % (0.0-6.0); HEMATOCRIT 30.8 % (34.2-44.1); HEMOGLOBIN 9.4 g/dL (12.0-16.0); LYMPHOCYTES # (AUTO) 0.8 (1.0-3.2); LYMPHOCYTES % 11.7 % (18.0-39.1); MEAN CORPUSCULAR HEMOGLOBIN 28.2 pg (28-32); MEAN CORPUSCULAR HGB CONC 30.5 g/dL (31-35); MEAN CORPUSCULAR VOLUME 92.5 fL (81-99); MONOCYTES # (AUTO) 0.6 (0.2-0.8); MONOCYTES % 8.3 % (4.4-11.3); NEUTROPHILS # (AUTO) 5.1 (2.1-6.9); NEUTROPHILS % 74.8 % (38.7-80.0); PLATELET COUNT 330 x10e3/uL (140-360); RED BLOOD COUNT 3.33 x10e6/uL (3.6-5.1); RED CELL DISTRIBUTION WIDTH 17.1 % (11.7-14.4)
[2017-10-28 07:23] LABS: ANION GAP 12.7 mmol/L (8-16); BLOOD UREA NITROGEN 17 mg/dL (7-26); BUN/CREATININE RATIO 25 (6-25); CALCIUM 8.7 mg/dL (8.4-10.2); CARBON DIOXIDE 29 mmol/L (22-29); CHLORIDE 103 mmol/L (98-107); CREATININE, SERUM 0.67 mg/dL (0.57-1.11); EST GLOMERULAR FILTRATION RATE > 60 ML/MIN (60-); GLUCOSE 88 mg/dL (74-118); POTASSIUM 3.7 mmol/L (3.5-5.1); SODIUM 141 mmol/L (136-145)
[2017-10-28 07:35] VITALS: BP 104/55
[2017-10-28 08:00] VITALS: BP 104/55
[2017-10-28] MEDS ORDERED: POVIDONE IODINE 10% 120 ML BTL EXT PRN (08:45)
[2017-10-28] MEDS: VANCOMYCIN 1GM/NS 250 ML 250 ML IV SCH ×2 (09:00→20:40)
--- NOTE | 2017-10-28 09:09 | Consultation ---
DATE OF CONSULTATION: October 28, 2017 SUBJECTIVE: Patient was seen at bedside. Doing better since she has been getting her IV antibiotics. Is denying any history of fever, chills, nausea, or vomiting since she has been in the hospital. She was relating of the above 2-3 days prior to being seen yesterday at the office, and presented with a very swollen and cellulitic left leg with a nonhealing ulceration on the plantar aspect left foot measuring 2 to 2.5 cm in diameter with some necrosis noted down to the subcutaneous tissue and proximal muscle. PAST MEDICAL HISTORY: Remarkable for peripheral neuropathy, arthritis, restless leg syndrome, and irregular heartbeat. CURRENT MEDICATIONS: Note is listed in the chart, including IV vancomycin and Zosyn. ALLERGIES: CLINDAMYCIN, MORPHINE, HYDROMORPHONE, AND METHADONE. SOCIAL HISTORY: No smoking, recreational drug use or drinking. Lives alone. Has 4 children and 2 still living. FAMILY HISTORY: Noncontributory. REVIEW OF SYSTEMS CARDIAC: Denies any palpitations or arrhythmias. RESPIRATORY: Denies any shortness of breath or productive cough. GASTROINTESTINAL: Denies any diarrhea or constipation. GENITOURINARY: Denies any problems voiding. LABS: Noted. Has a white blood cell count 6.83, hemoglobin 9.4 with a platelet count of 330,000. PODIATRIC PHYSICAL EXAMINATION VASCULAR: Pedal pulses of both the dorsal pedis and posterior tibial arteries are palpable. CFT to all toes less 5 seconds. Skin temperature warm to touch. NEUROLOGICAL: Reveals a complete loss of protective sensation when utilizing [place] 5.07 monofilament wire. MUSCULOSKELETAL: Shows muscle mass to be asymmetrical. Lateral filling noted to the left leg and foot when compared to the contralateral side with cellulitis all the way up to the knee. DERMATOLOGICAL: Shows a grade 2/3 ulceration on the plantar aspect of the left heel with lateral displacement of fat pad to the very swollen ankle and foot. No drainage noted. ASSESSMENT 1. Grade 3 ulcer. 2. Peripheral neuropathy. 3. Possible osteomyelitis with cellulitis. PLAN 1. Will continue IV antibiotics. 2. Will start Santyl followed by dilute wet-to-dry Betadine on a daily basis. 3. X-rays 3 views will be ordered. 4. MRI of the left lower extremity will be ordered to rule out osteo. 5. Continue offloading. 6. Sed rate will be ordered. Will continue to follow. Job#: [id number] [place]
[2017-10-28 11:17] LABS: BASOPHILS % 0.3 % (0.0-1.0); EOSINOPHILS # (AUTO) 0.3 (0.0-0.4); EOSINOPHILS % 5.2 % (0.0-6.0); HEMATOCRIT 32.4 % (34.2-44.1); HEMOGLOBIN 10.1 g/dL (12.0-16.0); LYMPHOCYTES # (AUTO) 0.6 (1.0-3.2); LYMPHOCYTES % 10.3 % (18.0-39.1); MEAN CORPUSCULAR HEMOGLOBIN 28.7 pg (28-32); MEAN CORPUSCULAR HGB CONC 31.2 g/dL (31-35); MONOCYTES # (AUTO) 0.4 (0.2-0.8); MONOCYTES % 6.9 % (4.4-11.3); NEUTROPHILS # (AUTO) 4.7 (2.1-6.9); PLATELET COUNT 327 x10e3/uL (140-360); RED BLOOD COUNT 3.52 x10e6/uL (3.6-5.1)
[2017-10-28 12:00] VITALS: BP 104/53
[2017-10-28] MEDS ORDERED: ONDANSETRON HCL 4 MG ORAL DISINTEGRATING TAB PO PRN (12:30)
[2017-10-28] MEDS ORDERED: ACETAMINOPHEN 325 MG TAB PO PRN (12:30)
[2017-10-28] MEDS ORDERED: METOPROLOL TARTRATE INJ 1 MG/ML VIAL IV PRN (12:30)
[2017-10-28] MEDS ORDERED: GABAPENTIN 300 MG CAP PO SCH (13:00)
[2017-10-28] MEDS: GABAPENTIN 400 MG CAP PO SCH ×3 (13:13→20:40)
[2017-10-28] MEDS: COLLAGENASE 5 GM TUBE TOP SCH (13:13)
[2017-10-28] MEDS: PRAMIPEXOLE DIHYDROCHLORIDE 1 MG TAB PO SCH ×2 (15:00→20:40)
[2017-10-28 16:00] VITALS: BP 114/57
[2017-10-28] MEDS: DULOXETINE HCL 30 MG DELAYED RELEASE PO SCH (16:58)
[2017-10-28] MEDS: BUMETANIDE 1 MG TAB PO SCH (16:58)
[2017-10-28 18:32] LABS: BASOPHILS % 0.5 % (0.0-1.0); EOSINOPHILS # (AUTO) 0.4 (0.0-0.4); EOSINOPHILS % 5.8 % (0.0-6.0); HEMATOCRIT 33.1 % (34.2-44.1); HEMOGLOBIN 10.3 g/dL (12.0-16.0); LYMPHOCYTES # (AUTO) 0.8 (1.0-3.2); LYMPHOCYTES % 11.5 % (18.0-39.1); MEAN CORPUSCULAR HEMOGLOBIN 28.7 pg (28-32); MEAN CORPUSCULAR HGB CONC 31.1 g/dL (31-35); MEAN CORPUSCULAR VOLUME 92.2 fL (81-99); MONOCYTES # (AUTO) 0.4 (0.2-0.8); MONOCYTES % 6.3 % (4.4-11.3); NEUTROPHILS % 75.6 % (38.7-80.0); PLATELET COUNT 340 x10e3/uL (140-360); RED BLOOD COUNT 3.59 x10e6/uL (3.6-5.1); RED CELL DISTRIBUTION WIDTH 16.9 % (11.7-14.4)
[2017-10-28 20:00] VITALS: BP 97/50
[2017-10-28] MEDS: METOPROLOL TARTRATE 25 MG TAB PO SCH (21:00)
--- NOTE | 2017-10-28 23:06 | Consultation ---
DATE OF CONSULTATION: October 28, 2017 REASON FOR CONSULTATION: Osteomyelitis of the foot. HISTORY OF PRESENT ILLNESS: This patient is known to me from before. She is a very pleasant 72-year-old white female, history of obesity, history of neuropathy, history of arthritis, restless legs syndrome. The patient comes in with redness and swelling of her foot. She was on long-term IV antibiotic before. We just finished treatment back in June. She was doing good. She is coming now with 3 days' history of redness and swelling of her left leg, nonhealing ulcer on plantar aspect of left foot about 2 x 2.5 cm. There is also necrosis and some swelling noted in the foot. Patient was seen by podiatry. The plan for him to have surgery tomorrow. Infectious disease was consulted. The patient who is currently laying in bed comfortably. She has problem with this foot on and off for awhile. History of underlying of obesity, neuropathy. She does have history of hypertension, chronic venous stasis, history of DVT after back surgery. She has history of back surgery 2012. History of left foot ulcer. She has past surgical history also hysterectomy, cholecystectomy, left shoulder surgery, and replacement, bilateral carpal tunnel surgery. Multiple left heel ulcers and debridement before. ALLERGIES: METHADONE, DILAUDID. SOCIAL HISTORY: There is no smoking, drug abuse, alcohol use. FAMILY HISTORY: Otherwise unremarkable. Family history of hypertension. REVIEW OF SYSTEMS: At present time. HEENT: Negative. PULMONARY: Negative. CARDIAC: Negative. : Negative. SKIN: No rash. JOINTS: There is no swelling or edema. LABORATORY DATA: Reviewed. Her white count 6.5, hemoglobin of 10.3. Her sodium 141, potassium 3.7, creatinine 0.67. MEDICATION: List she is currently on Neurontin, Cymbalta, Bumex. She is also on [place]. She is on vancomycin. She is on Zofran, metoprolol. PHYSICAL EXAMINATION GENERAL: She is currently alert, oriented, does not seem to be in acute distress. VITALS: Stable. Afebrile. HEENT she is not icteric. NECK: Supple. No JVD, no , no thyromegaly. CHEST: Clear bilaterally. HEART: S1, S2. No murmur. ABDOMEN: Soft, obese, nontender. No hepatosplenomegaly. EXTREMITIES: Bilateral lower extremity chronic edema that was noted. The sensation is diminished bilaterally. She has a stage-3 ulcer noted at the plantar aspect of her left heel, redness and swelling. There is no drainage at the present time. IMPRESSIONS 1. Infected foot. 2. Patient is a morbidly obese patient. 3. Chronic ulcer. Recommend to obtain x-ray of the foot, MRI of the foot with and without contrast. Agree with vancomycin. Podiatry is following, debridement is planned. Will follow vancomycin trough. Recheck CBC. Recheck chem panel. Other medical problems as above. Discussed with the patient. Will follow. Job#: [id number] CQ
[2017-10-29] VITALS: BP 97/46
[2017-10-29] MEDS: PIPER-TAZ 3.375 GM 100 ML IV SCH ×3 (06:00→22:50)
[2017-10-29 06:50] LABS: BASOPHILS % 0.3 % (0.0-1.0); EOSINOPHILS # (AUTO) 0.4 (0.0-0.4); EOSINOPHILS % 6.2 % (0.0-6.0); HEMATOCRIT 35.7 % (34.2-44.1); LYMPHOCYTES # (AUTO) 0.5 (1.0-3.2); LYMPHOCYTES % 8.5 % (18.0-39.1); MEAN CORPUSCULAR HEMOGLOBIN 28.5 pg (28-32); MEAN CORPUSCULAR HGB CONC 30.8 g/dL (31-35); MEAN CORPUSCULAR VOLUME 92.5 fL (81-99); MONOCYTES # (AUTO) 0.5 (0.2-0.8); MONOCYTES % 7.4 % (4.4-11.3); NEUTROPHILS # (AUTO) 4.7 (2.1-6.9); NEUTROPHILS % 77.3 % (38.7-80.0); PLATELET COUNT 375 x10e3/uL (140-360); RED BLOOD COUNT 3.86 x10e6/uL (3.6-5.1)
[2017-10-29 07:13] LABS: ANION GAP 12.7 mmol/L (8-16); BLOOD UREA NITROGEN 12 mg/dL (7-26); BUN/CREATININE RATIO 16 (6-25); CALCIUM 9.2 mg/dL (8.4-10.2); CARBON DIOXIDE 31 mmol/L (22-29); CHLORIDE 102 mmol/L (98-107); CREATININE, SERUM 0.77 mg/dL (0.57-1.11); EST GLOMERULAR FILTRATION RATE > 60 ML/MIN (60-); GLUCOSE 100 mg/dL (74-118); MAGNESIUM 1.6 MG/DL (1.3-2.1); POTASSIUM 3.7 mmol/L (3.5-5.1); SODIUM 142 mmol/L (136-145)
[2017-10-29 08:23] VITALS: BP 126/58
[2017-10-29 08:37] VITALS: BP 126/58
[2017-10-29] MEDS: GABAPENTIN 400 MG CAP PO SCH ×4 (08:37→21:04)
[2017-10-29] MEDS: BUMETANIDE 1 MG TAB PO SCH ×2 (08:37→17:00)
[2017-10-29] MEDS: DULOXETINE HCL 30 MG DELAYED RELEASE PO SCH ×2 (08:37→17:47)
[2017-10-29] MEDS: PANTOPRAZOLE SOD 40 MG TABEC PO SCH (08:37)
[2017-10-29] MEDS: PRAMIPEXOLE DIHYDROCHLORIDE 1 MG TAB PO SCH ×3 (08:37→21:04)
--- NOTE | 2017-10-29 08:46 | Diagnostic Imaging Report ---
PROCEDURE:X-RAY LEFT FOOT, COMPLETE COMPARISON:CT left foot 07/20/2017. INDICATIONS:PRESSURE ULCER LEFT HEEL FINDINGS: Soft tissue prominence is present in the posterior aspect of the foot adjacent to the inferior margin of the calcaneus. Minimal air is noted in the subcutaneous tissues, consistent with history of ulcer. Minimal periosteal changes are present along the inferior margin of the calcaneus. There are no fractures, dislocations, lytic or blastic lesions. The bones are well-mineralized. CONCLUSION: Soft tissue density in the heel consistent with known wound, as visualized on the previous CT of the foot. Periosteal changes of the calcaneus may represent osteomyelitis. Correlate with physical examination for the need of an MRI of the foot for further characterization. Dictated by: Earl Chavarria M.D. on 10/29/2017 at 8:48 Electronically approved by: Earl Chavarria M.D. on 10/29/2017 at 8:48
--- NOTE | 2017-10-29 08:57 | Progress Note ---
DATE: October 29, 2017 SUBJECTIVE: Patient seen at bedside. Doing better. Denies any history of fever, chills, nausea, or vomiting. OBJECTIVE VITAL SIGNS: Afebrile. Pulse rate 98, respirations 20, blood pressure 126/58, and O2 saturation 96%. SKIN: Ulceration healing slowly. Still positive cellulitis and edema left lower extremity up to the anterior aspect of the leg. LABS: White blood cell count 6.11, hemoglobin 11.0, and platelet count 375,000. ASSESSMENT 1. Grade 3 ulcer. 2. Possible osteomyelitis. 3. Cellulitis with peripheral neuropathy. PLAN: We will continue IV antibiotics. Continue local wound care. Awaiting x-ray results. The patient was not a good candidate for MRI secondary to back hardware. We will continue to treat conservatively. Job#: [id number]
[2017-10-29] MEDS ORDERED: AMITRIPTYLINE HCL 10 MG TAB PO SCH (09:00)
[2017-10-29] MEDS ORDERED: COLLAGENASE OINTMENT 30 GM TUBE TP SCH (09:00)
[2017-10-29] MEDS: VANCOMYCIN 1GM/NS 250 ML 250 ML IV SCH ×2 (09:08→21:03)
[2017-10-29 12:16] VITALS: BP 98/56
--- NOTE | 2017-10-29 16:13 | Diagnostic Imaging Report ---
PROCEDURE: A single AP view of the chest. COMPARISON: 10/27/17 INDICATIONS: PICC LINE PLACEMENT FINDINGS: Lines/tubes: New PICC in place with tip overlying mid SVC. Lungs: Limited by body habitus and low lung volumes. No focal consolidation. Pleura: There is no pleural effusion or pneumothorax. Heart and mediastinum: Cardiac silhouette is mildly prominent. Bones: Thoracolumbar posterior fusion. The visualized hardware is intact. Left shoulder arthroplasty. IMPRESSION: New right PICC in place with tip overlying mid SVC. No visible pneumothorax. Dictated by: Osmar Gomez M.D. on 10/29/2017 at 16:14 Electronically approved by: Osmar Gomez M.D. on 10/29/2017 at 16:14
[2017-10-29 16:32] VITALS: BP 101/51
[2017-10-29] MEDS: COLLAGENASE 5 GM TUBE TOP SCH (17:47)
[2017-10-29 20:09] VITALS: BP 115/56
[2017-10-29] MEDS: METOPROLOL TARTRATE 25 MG TAB PO SCH (21:00)
[2017-10-30 00:40] VITALS: BP 121/56
[2017-10-30 06:00] VITALS: BP 126/66
[2017-10-30 06:32] LABS: BASOPHILS % 0.4 % (0.0-1.0); EOSINOPHILS # (AUTO) 0.5 (0.0-0.4); EOSINOPHILS % 8.6 % (0.0-6.0); HEMATOCRIT 34.9 % (34.2-44.1); LYMPHOCYTES # (AUTO) 0.9 (1.0-3.2); LYMPHOCYTES % 16.4 % (18.0-39.1); MEAN CORPUSCULAR HEMOGLOBIN 28.6 pg (28-32); MEAN CORPUSCULAR HGB CONC 31.5 g/dL (31-35); MEAN CORPUSCULAR VOLUME 90.9 fL (81-99); MONOCYTES # (AUTO) 0.5 (0.2-0.8); MONOCYTES % 8.2 % (4.4-11.3); NEUTROPHILS # (AUTO) 3.7 (2.1-6.9); PLATELET COUNT 376 x10e3/uL (140-360); RED BLOOD COUNT 3.84 x10e6/uL (3.6-5.1); RED CELL DISTRIBUTION WIDTH 16.8 % (11.7-14.4)
[2017-10-30] MEDS: PIPER-TAZ 3.375 GM 100 ML IV SCH ×2 (06:39→13:42)
[2017-10-30 07:03] LABS: ANION GAP 11.7 mmol/L (8-16); BLOOD UREA NITROGEN 9 mg/dL (7-26); BUN/CREATININE RATIO 13 (6-25); CALCIUM 9.3 mg/dL (8.4-10.2); CARBON DIOXIDE 31 mmol/L (22-29); CHLORIDE 103 mmol/L (98-107); CREATININE, SERUM 0.72 mg/dL (0.57-1.11); EST GLOMERULAR FILTRATION RATE > 60 ML/MIN (60-); GLUCOSE 102 mg/dL (74-118); MAGNESIUM 1.7 MG/DL (1.3-2.1); POTASSIUM 3.7 mmol/L (3.5-5.1); SODIUM 142 mmol/L (136-145)
[2017-10-30] MEDS ORDERED: PANTOPRAZOLE SOD 40 MG TABEC PO SCH (07:30)
[2017-10-30 08:06] VITALS: BP 147/60
--- NOTE | 2017-10-30 08:07 | Progress Note ---
DATE: October 30, 2017 SUBJECTIVE: Patient was seen at bedside. Feeling better. Decreased cellulitis to the left leg. OBJECTIVE VITAL SIGNS: Afebrile. Vital signs stable. EXTREMITIES: Ulceration getting better. There is decreased periwound cellulitis surrounding the ulceration. There is some tracking noted. Negative foul smell. ASSESSMENT 1. Grade 3 ulcer. 2. Cellulitis with peripheral neuropathy. PLAN: Will continue local wound care. Continue IV antibiotics. Will continue to follow. Patient may need IV antibiotics for the next 3-4 weeks. Job#: [id number]
[2017-10-30 08:56] VITALS: BP 147/60
[2017-10-30] MEDS: BUMETANIDE 1 MG TAB PO SCH (08:56)
[2017-10-30] MEDS: DULOXETINE HCL 30 MG DELAYED RELEASE PO SCH ×2 (08:56→17:03)
[2017-10-30] MEDS: PANTOPRAZOLE SOD 40 MG TABEC PO SCH (08:56)
[2017-10-30] MEDS: GABAPENTIN 400 MG CAP PO SCH ×3 (08:56→17:03)
[2017-10-30] MEDS: PRAMIPEXOLE DIHYDROCHLORIDE 1 MG TAB PO SCH ×2 (10:06→13:42)
[2017-10-30] MEDS: COLLAGENASE 5 GM TUBE TOP SCH (10:10)
[2017-10-30] MEDS: VANCOMYCIN 1GM/NS 250 ML 250 ML IV SCH (10:10)
--- NOTE | 2017-10-30 11:37 | Consultation ---
DATE OF CONSULTATION: October 30, 2017 REFERRING PHYSICIAN: Dr. Vasquez I would like to thank Dr. Vasquez for asking me to see Ms. Hernandez in consultation. REASONS FOR CONSULTATION 1. Infected left foot wound with osteomyelitis. 2. Obesity. 3. Depression. 4. Peripheral neuropathy. 5. Reflux. HISTORY: Ms. Hernandez is a pleasant, but unfortunate, 72-year-old female with history of peripheral neuropathy, chronic left heel wound which gets better and then worse over time, restless legs syndrome. She is admitted to this facility after discovering that her wound opened up again. She has cellulitis of the leg, and there is bone involvement. I am being asked to evaluate for rehab needs. PAST MEDICAL HISTORY: Includes obesity. Patient with neuropathy, arthritis, restless legs syndrome. Patient with neuropathy of the legs. ALLERGIES: METHADONE, DILAUDID, CLINDAMYCIN, HYDROMORPHONE, MORPHINE. HABITS: Nonsmoker, nondrinker. SOCIAL HISTORY: Lives by herself in an apartment. Ambulatory. She tends to continue to walk barefoot. The patient grew up in [place], so she is used to ambulating without any shoes on. FAMILY HISTORY: Hypertension runs in the family. PREVIOUS SURGERIES: Include debridements of the foot. REVIEW OF SYSTEMS GENERAL: She has had episodes of fevers associated with her infection. EYES: Denies. EARS: Denies. ORAL: Denies. NECK: Denies. CARDIAC: Denies. GI: Denies. : Denies. SKIN: Has chronic left foot wound from the foot ulcer. HEMATOLOGIC: Denies. LABS: Please see electronic medical record. PHYSICAL EXAMINATION GENERAL: Awake, alert and oriented times 3, in no apparent distress. She is aware of her condition. EYES: Gaze is conjugate. HEART: Regular rate and rhythm. LUNGS: Clear to auscultation. ABDOMEN: Bowel sounds are heard. EXTREMITIES: Functional range of motion to the arms as well as the legs. MANUAL MUSCLE TESTING: Pretty much 4+/5 to 5/5 strength in the upper extremities bilaterally. Right lower extremity has 5/5 strength throughout. Left lower extremity: Hip and knee flexion and extension 4+/5 strength. Ankle dorsiflexion and plantarflexion are . SENSORY: She has diminished sensation to the knees and feet bilaterally. SKIN: Heel wound is noted. There is a callus on her left heel. Her foot is a little bit larger on the left compared to the right. There are some edema and swelling to the left heel. IMPRESSION 1. Grade-3 left heel ulcer noted with probable osteomyelitis. 2. Cellulitis. 3. Peripheral neuropathy. 4. Hypertension. 5. History of arthritis. PLAN: I spoke with the patient at length. I think a lot of the problem is the fact that she continues to ambulate weightbearing as tolerated. She tries to offload the foot; but because of her neuropathy, she is not able to do so. More importantly, she walks around barefoot. She has been doing this since she was a little kid, and it is pretty obvious that walking barefoot, her weight, her neuropathy, and inability to offload her foot cause this to occur again. She does have socks that she wears sometimes, but she is so used to being barefoot that she has a hard time for her to change her habits. However, she now is willing to change as she knows that she cannot keep doing this over and over again. Will most likely be going to [facility] for her antibiotic treatment. Discussed ways to offload the foot. One shoe has been ordered per Dr. Rogers. Will try to work on offloading, upper extremity strengthening, lower extremity strengthening and gait. Will follow along with you. Thank you, once again, for allowing me to participate in the care of this pleasant, but unfortunate, lady. Job#: [id number]
[2017-10-30] MEDS ORDERED: BUMETANIDE 1 MG TAB PO SCH (12:00)
[2017-10-30 12:20] VITALS: BP 109/55
[2017-10-30 16:29] VITALS: BP 110/58
[2017-10-30] MEDS ORDERED: AMITRIPTYLINE HCL 10 MG TAB PO SCH (21:00)
--- NOTE | 2017-10-30 22:38 | Discharge Summary ---
ADMISSION DIAGNOSES 1. Left foot wound/cellulitis with osteomyelitis. 2. Hypertension. 3. Depression. 4. Neuropathy. 5. Gastroesophageal reflux disease. 6. Restless legs syndrome. 7. Osteoarthritis. 8. Diarrhea. DISCHARGE DIAGNOSES 1. Left foot wound/cellulitis with osteomyelitis. 2. Hypertension. 3. Depression. 4. Neuropathy. 5. Gastroesophageal reflux disease. 6. Restless legs syndrome. 7. Osteoarthritis. 8. Diarrhea. 9. Ruled out Clostridium difficile. 10. Anemia. HISTORY: Patient has a history of hypertension, chronic venous stasis, OA, DVT in 2013 off OAC, chronic back pain, depression, GERD, neuropathy, RLS. Surgical history of hysterectomy, cholecystectomy, left shoulder replacement, bilateral carpal tunnel, bilateral left heel, multiple back surgeries with a spinal stimulator in place. HOSPITAL COURSE: A 72-year-old female, who presents with left heel pain and left lower extremity swelling and fever that began on Friday. Fever was as high as 101 degrees on Friday. She also complained of diarrhea for months. She was recently discharged from [facility] with p.o. antibiotics for the chronic left heel wound. After discontinue and completion of antibiotics, she followed up with Dr. Rogers, who gave her additional antibiotics, which she believes to be Keflex. The wound and pain continued to worsen. On admission, the patient was started on IV vancomycin and Zosyn. Podiatry consulted, ID consulted. Santyl and Betadine daily dressing changes were completed. Wound culture collected, which showed gram-negative bacillus yeast. Blood cultures negative. Urine cultures negative. X-ray of the left foot showed soft tissue density in the heel consistent with known wound as visualized from the previous CT. Periosteal changes of the calcaneus may represent osteomyelitis. Patient is unable to have an MRI due to spinal stimulator. Chest x-ray showed no acute thoracic abnormality. Patient was resumed on her 1. Lopressor and Bumex for hypertension. 2. Elavil and Cymbalta for depression. 3. Gabapentin for neuropathy. 4. Protonix for GERD. 5. Mirapex for RLS. 6. Given [place] for her OA. Patient will transfer to [facility] for long-term antibiotics. Infectious disease, podiatry, and internal medicine will follow her there. Dictated by Rehana Nguyen NP. MANDI REBOLLAR MD Job#: [id number] CQ
== END 2017-10-30 19:12 | DRG 592 ==
LOC: ER 15:16 → ERHOLD 19:21 → MED/SURG2 20:35
PROVIDERS: ADMIT Internal Medicine; ATTEND Internal Medicine
PROC: 02HV33Z Insertion of Infusion Device into Superior Vena Cava, Percutaneous Approach (ICD-10-PCS; principal; 2017-10-29)
PROC: B5181ZA Fluoroscopy of Superior Vena Cava using Low Osmolar Contrast, Guidance (ICD-10-PCS; 2017-10-29)
DX: L89.623 Pressure ulcer of left heel, stage 3 (principal); L03.116 Cellulitis of left lower limb; Z68.41 Body mass index [BMI] 40.0-44.9, adult; M86.672 Other chronic osteomyelitis, left ankle and foot; B37.89 Other sites of candidiasis; K21.9 Gastro-esophageal reflux disease without esophagitis; G25.81 Restless legs syndrome; F32.9 Major depressive disorder, single episode, unspecified; R19.7 Diarrhea, unspecified; M19.90 Unspecified osteoarthritis, unspecified site; G62.9 Polyneuropathy, unspecified; E66.01 Morbid (severe) obesity due to excess calories; I87.2 Venous insufficiency (chronic) (peripheral); Z86.718 Personal history of other venous thrombosis and embolism; Z79.01 Long term (current) use of anticoagulants; G89.29 Other chronic pain
CPT/HCPCS: 36415; 36569; 71045; 80048; 80053; 80202; 81001; 82948; 83605; 83735; 85025; 85651; 87040; 87071; 87086; 87186; 87205; 87493; 93005; 99284; J2543; J3370; J7050

== ENCOUNTER → 2017-12-17 | Outpatient (CLI) | payer MEDICARE, OTHER ==
[~2017-12-17] MED LIST changes: +AMITRIPTYLINE H10 MG PO; +BUMETANIDE1 MG PO
--- NOTE | 2017-12-17 22:45 | Diagnostic Imaging Report ---
Bone Scan, three-phase Reason for exam: 72 F with open, nonhealing wound at plantar aspect of left heel. Radiopharmaceutical: Tc-99m MDP 20 mCi Comparison: CT left foot 07/20/2017l; left foot radiographs 10/29/2017 Following intravenous administration of the radiopharmaceutical, dynamic flow and immediate blood pool images of the feet and ankles followed by 3-hour delayed selected spot images were obtained. Flow and blood pool images show diffuse mildly increased tracer activity in the left foot and ankle compared to the right with markedly increased tracer in the posterior aspect of the right calcaneus. The delayed images show focal increased tracer activity in most of the posterior portion of the right calcaneus. Diffusely increased tracer activity is also seen throughout the adjacent soft tissues. Impression: Scan evidence of osteomyelitis in the posterior aspect of the left calcaneus. The CT examination of the left foot on 07/20/2017 showed osteomyelitis in the left calcaneus at that time. If the patient's treatment regimen is thought to have been adequate for osteomyelitis, it is possible that infection has been eradicated and the remaining osteoblastic activity persists solely as part of remodeling. If this is of concern, a labeled white blood cell study is a better biomarker for end point of therapy. Signed by: Dr. Debbie Santoro M.D. on 12/17/2017 10:42 PM
== END ==
LOC: NM 13:09
PROVIDERS: ATTEND Podiatrist
DX: S91.302A Unspecified open wound, left foot, initial encounter (principal); M86.8X7 Other osteomyelitis, ankle and foot
CPT/HCPCS: 78315; A9503

== ENCOUNTER → 2018-05-07 | Day surgery (SDC) | payer MEDICARE, OTHER ==
[2018-05-04 13:50] LABS: BASOPHILS % 0.4 % (0.0-1.0); EOSINOPHILS # (AUTO) 0.1 (0.0-0.4); EOSINOPHILS % 1.8 % (0.0-6.0); HEMATOCRIT 39.9 % (34.2-44.1); HEMOGLOBIN 12.2 g/dL (12.0-16.0); LYMPHOCYTES # (AUTO) 1.8 (1.0-3.2); LYMPHOCYTES % 22.3 % (18.0-39.1); MEAN CORPUSCULAR HEMOGLOBIN 27.9 pg (28-32); MEAN CORPUSCULAR HGB CONC 30.6 g/dL (31-35); MEAN CORPUSCULAR VOLUME 91.1 fL (81-99); MONOCYTES # (AUTO) 0.6 (0.2-0.8); MONOCYTES % 7.1 % (4.4-11.3); NEUTROPHILS # (AUTO) 5.4 (2.1-6.9); NEUTROPHILS % 68.1 % (38.7-80.0); PLATELET COUNT 379 x10e3/uL (140-360); RED BLOOD COUNT 4.38 x10e6/uL (3.6-5.1); RED CELL DISTRIBUTION WIDTH 17.1 % (11.7-14.4)
[2018-05-04 14:12] LABS: ANION GAP 13.6 mmol/L (8-16); BLOOD UREA NITROGEN 23 mg/dL (7-26); BUN/CREATININE RATIO 30 (6-25); CALCIUM 8.8 mg/dL (8.4-10.2); CARBON DIOXIDE 33 mmol/L (22-29); CHLORIDE 97 mmol/L (98-107); CREATININE, SERUM 0.77 mg/dL (0.57-1.11); EST GLOMERULAR FILTRATION RATE > 60 ML/MIN (60-); GLUCOSE 91 mg/dL (74-118); POTASSIUM 3.6 mmol/L (3.5-5.1); SODIUM 140 mmol/L (136-145)
[~2018-05-07] MED LIST changes: +CHONDR SU A NA/HYALUR SOD 1 EACH KIT IO ONE; +CYCLOPENTOLATE HCL 2% OPTH SOLN 2 ML BTL OP ONE; +EPINEPHRINE HCL INJ 1 MG/ML AMP ONE; +GATIFLOXACIN(OPTH) 5 ML LIQD ONE; +LIDOCAINE 2% /EPINEPHRINE 20 ML SDV INJ ONE; +LIDOCAINE HCL 2% LOCAL INJ 5 ML SDV VIAL INJ ONE; +LIDOCAINE HCL-PF 4% 40 MG/1 ML 5ML AMP ONE; +PHENYLEPHRINE HCL 2 ML DROPS ONE; +PILOCARPINE HCL(OPTH) 15 ML LIQD ONE; +POVIDONE IODINE 5% (OPTH) 30 ML BTL ONE; +PROPOFOL IV EMULSION 10 MG/ML 20 ML VIAL ONE; +TOBRAMYCIN/DEXAMETHASONE(OPTH) 3.5 GM TUBE ONE
--- OUTSIDE RECORDS SUMMARY | 2018-05-07 05:39 | XMS REPORT | Clinical Summary ---
Author Author [facility] Address Unknown Phone Unavailable Care Team Providers Care [employer]oples[employer] Hcm Consultant Name Role Phone Sharpless PCP Allergies Comments Active Allergy Reactions Severity Noted Date Clindamycin Itching, 05/21/2017 Nausea Only "black out"-no recollection of what happened Hydromorphone (Bulk) Other (See 05/21/2017 Comments) confusion Methadone Other (See 05/21/2017 Comments) Morphine Itching 05/21/2017 Medications End Date Status Medication Sig Dispensed Refills Start Date Active pantoprazole (PROTONIX) Take 40 mg by 0 40 MG tablet mouth daily. Active furosemide (LASIX) 40 MG Take 40 mg by 0 tablet mouth 2 (two) times daily. Active gabapentin (NEURONTIN) Take 800 mg 0 800 MG tablet by mouth 4 (four) times daily. Active pramipexole (MIRAPEX) 1 Take 2 mg by 0 MG tablet mouth 4 (four) times daily. Active DULoxetine (CYMBALTA) 60 Take 60 mg by 0 MG capsule mouth 2 (two) times daily. Active HYDROcodone-acetaminophen Take 1 tablet 0 (NORCO 5-325) 5-325 mg by mouth per tablet every 6 (six) hours as needed for Pain. Active amitriptyline (ELAVIL) 10 Take 10 mg by 0 MG tablet mouth nightly. Active metoprolol (LOPRESSOR) 25 Take 25 mg by 0 MG tablet mouth nightly. Active mupirocin (BACTROBAN) 2 % Apply 0 ointment topically 2 (two) times daily Open wound left heel . 05/28/2017 Discontinued doxycycline (VIBRAMYCIN) Take 100 mg 0 100 MG capsule by mouth 2 7 (two) times daily. 06/07/2017 docusate sodium (COLACE) Take 1 30 capsule 0 100 MG capsule capsule (100 7 mg total) by mouth 3 (three) times daily as needed for Constipation for up to 10 days. 06/02/2017 cephalexin (KEFLEX) 500 Take 1 10 capsule 0 MG capsule capsule (500 7 mg total) by mouth 2 (two) times daily for 5 days. 06/13/2017 acetaminophen-codeine Take 1 tablet 30 tablet 0 (TYLENOL #3) 300-30 mg by mouth 7 per tablet every 4 (four) hours as needed for Pain for up to 10 days. Max Daily Amount: 6 tablets Active Problems Problem Noted Date Back pain 06/03/2017 Chronic pain disorder 05/27/2017 Pre-op testing 05/27/2017 Encounters Care Team Description Date Type Specialty Gerald Villarreal MD INSERTION,SPINAL CORD NEUROSTIMULATOR 06/03/2017 Surgery Ashley Quigley MD 06/03/2017 Anesthesia Event Gerald Villarreal MD 06/03/2017 Hospital General Internal Medicine - Encounter 06/04/2017 Gerald Villarreal MD INSERTION,SPINAL CORD NEUROSTIMULATOR TRIAL 05/27/2017 Surgery Robb Jackson MD 05/27/2017 Anesthesia Event Gerald Villarreal MD Pre-op testing 05/27/2017 [facility] General Internal Medicine - Encounter 05/28/2017 Gerald Villarreal MD 05/21/2017 Hospital Encounter Gerald Villarreal MD 05/21/2017 Hospital Cardiology Encounter Gerald Villarreal MD 05/21/2017 Hospital Pre-Admission Testing Encounter Gerald Villarreal MD Pre-op testing 05/21/2017 Hospital Pre-Admission Testing Encounter Gerald Villarreal MD Pre-op testing (Primary Dx) 05/09/2017 Orders Only Neurosurgery after 05/06/2017 Social History Date Tobacco Use Types Packs/Day Years Used Never Smoker Smokeless Tobacco: Never Used Alcohol Use Drinks/Week oz/Week Comments No Sex Assigned at Date Recorded Not on file Industry Job Start Date Occupation Not on file Not on file Not on file Travel End Travel History Travel Start No recent travel history available. Last Filed Vital Signs Time Taken Vital Sign Reading 06/04/2017 7:04 AM MARKET SALES MANAGER Blood Pressure 114/55 06/04/2017 7:04 AM MARKET SALES MANAGER Pulse 72 06/04/2017 7:04 AM MARKET SALES MANAGER Temperature 36.4 C (97.6 F) 06/04/2017 7:04 AM MARKET SALES MANAGER Respiratory Rate 16 06/04/2017 7:04 AM MARKET SALES MANAGER Oxygen Saturation 97% - Inhaled Oxygen - Concentration 06/03/2017 8:18 AM MARKET SALES MANAGER Weight 123 kg (271 lb 2.7 oz) 06/03/2017 8:18 AM MARKET SALES MANAGER Height 162.6 cm (5' 4") 06/03/2017 8:18 AM MARKET SALES MANAGER Body Mass Index 46.55 Plan of Treatment Not on file Implants Device Identifier Shelf Expiration Date Model / Serial / Lot Implanted Type Area Manufactur er 10/19/2018 [id number] / / [id number] Matrix Floseal Hemo W/O Ndl 10 Cement/Mono N/A: Spine HEDRICK:BIO [id number] - [id number] ler/Adhesi Thoracic SCI Implanted: Qty: 1 on 05/27/2017 by Gerald Sanchez MD 04/26/2020 [id number] / / [id number] Specify Surescan Mri 2x8 Neuro N/A: Spine MEDTRONIC Implanted: Qty: 1 on 05/27/2017 by Gerald Villarreal MD 05/20/2018 [id number] / [id number] / Intellis Adaptivestim Neuro N/A: Back MEDTRON[employer] Implanted: Qty: 1 on 06/03/2017 by Gerald Villarreal MD 02/12/2020 [id number] / [id number] / [id number] Kt Ext Neuro 1x8 40cm [id number] - Pain N/A: Spine MEDTRONIC: [id number] Mgmt/Stimu NEUROMODUL Implanted: Qty: 1 on 05/27/2017 by Gerald Paz MD 10/22/2020 [id number] / [id number] / [id number] Kt Ext Neuro 1x8 40cm [id number] - Pain N/A: Spine MEDTR[employer]IC: [id number] Mgmt/Stimu NEUROMODUL Implanted: Qty: 1 on 05/27/2017 by Gerald Paz MD Procedures Comments Procedure Name Priority Date/Time Associated Diagnosis INSERTION,SPINAL CORD 06/03/2017 Chronic pain disorder NEUROSTIMULATOR 9:36 AM MARKET SALES MANAGER Special Needs (C-ARM, MEDTRONIC) RHYTHM STRIP - SCAN 05/29/2017 9:40 AM MARKET SALES MANAGER BASIC METABOLIC PANEL (7) STAT 05/28/2017 9:12 AM MARKET SALES MANAGER CBC W/PLT COUNT & AUTO STAT 05/28/2017 DIFFERENTIAL 9:07 AM MARKET SALES MANAGER CBC W/PLT COUNT & AUTO STAT 05/28/2017 DIFFERENTIAL 9:07 AM MARKET SALES MANAGER FL DYNAMOMETER MECHANIC IN OR 30 Routine 05/27/2017 MINUTE INCREMENTS 1:00 PM MARKET SALES MANAGER PROCEDURE W/ C-ARM 05/27/2017 Chronic pain disorder 11:11 AM MARKET SALES MANAGER Special Needs (C-ARM,MED TRONIC) INSERTION,SPINAL CORD 05/27/2017 Chronic pain disorder NEUROSTIMULATOR TRIAL 11:11 AM MARKET SALES MANAGER Special Needs (C-ARM,MED TRONIC) TRANSFUSION SERVICE 05/22/2017 REPORT - SCAN 5:47 PM MARKET SALES MANAGER XR CHEST 2 VIEWS Routine 05/21/2017 Pre-op testing 12:55 PM MARKET SALES MANAGER ECG 12-LEAD Routine 05/21/2017 12:10 PM MARKET SALES MANAGER Procedure Note - Interface, External Ris In - 05/21/2017 12:22 PM MARKET SALES MANAGER Ventricula r Rate 81 BPM Atrial Rate 81 BPM P-R Interval 184 ms QRS Duration 94 ms Q-T Interval 368 ms QTC Calculatio n(Bazett) 427 ms P Mercer 33 degrees R Mercer 28 degrees T Mercer 79 degrees Sinus rhythm with marked sinus arrhythmia Otherwise normal ECG No previous ECGs available ECG 12-LEAD STAT 05/21/2017 Pre-op testing 12:10 PM MARKET SALES MANAGER CBC W/PLT COUNT & AUTO Routine 05/21/2017 Pre-op testing DIFFERENTIAL 12:09 PM MARKET SALES MANAGER TYPE AND SCREEN, Routine 05/21/2017 Pre-op testing AUTOMATED 12:09 PM MARKET SALES MANAGER CBC W/PLT COUNT & AUTO Routine 05/21/2017 Pre-op testing DIFFERENTIAL 12:09 PM MARKET SALES MANAGER BASIC METABOLIC PANEL (7) Routine 05/21/2017 Pre-op testing 12:09 PM MARKET SALES MANAGER URINALYSIS W/ REFLEX Routine 05/21/2017 Pre-op testing URINE CULTURE 12:09 PM MARKET SALES MANAGER APTT Routine 05/21/2017 Pre-op testing 12:08 PM MARKET SALES MANAGER PROTHROMBIN TIME/INR Routine 05/21/2017 Pre-op testing 12:08 PM MARKET SALES MANAGER after 05/06/2017 Results * RHYTHM STRIP - SCAN (05/29/2017 9:40 AM MARKET SALES MANAGER) Narrative Performed At * Basic Metabolic Panel (05/28/2017 9:12 AM MARKET SALES MANAGER) Only the most recent of 2 results within the time period is included. Sodium 142 136 - 145 meq/L [facility] Potassium 3.2 (L) 3.5 - 5.1 meq/L [facility] Chloride 101 98 - 107 meq/L [facility] CO2 34 (H) 22 - 29 meq/L [facility] BUN 19 7 - 21 mg/dL [facility] Creatinine 0.78 0.57 - 1.25 mg/dL [facility] Glucose 80 70 - 105 mg/dL [facility] Calcium 8.6 8.4 - 10.2 mg/dL [facility] EGFR 73Comment: ESTIMATED GFR IS mL/min/1.73 sq m [facility] NOT ACCURATE CREATININE [facility] CLEARANCE IN PREDICTING GLOMERULAR FILTRATION RATE. ESTIMATED GFR IS NOT APPLICABLE FOR DIALYSIS PATIENTS. Specimen Blood - Arm, Left Performing Organization Address City/State/Zipcode Phone Number [facility] [address] [place] [address] MEDICAL CENTER * CBC with platelet count + automated diff (05/28/2017 9:07 AM MARKET SALES MANAGER) Only the most recent of 2 results within the time period is included. WBC 8.9 3.5 - 10.5 K/L [facility] RBC 3.66 (L) 3.93 - 5.22 M/L [facility] Hemoglobin 10.3 (L) 11.2 - 15.7 GM/DL [facility] Hematocrit 34.8 34.1 - 44.9 % [facility] MCV 95.1 (H) 79.4 - 94.8 fL [facility] MCH 28.1 25.6 - 32.2 pg [facility] MCHC 29.6 (L) 32.2 - 35.5 GM/DL [facility] RDW 15.1 (H) 11.7 - 14.4 % [facility] Platelets 292 150 - 450 K/CU MM [facility] MPV 9.7 9.4 - 12.3 fL [facility] nRBC 0 0 - 0 /100 WBC [facility] % Neutros 77 % [facility] % Lymphs 17 % [facility] % Monos 5 % [facility] % Eos 0 % [facility] % Baso 0 % [facility] # Neutros 6.83 (H) 1.56 - 6.13 K/L [facility] # Lymphs 1.55 1.18 - 3.74 K/L [facility] # Monos 0.46 (H) 0.24 - 0.36 K/L [facility] # Eos 0.03 (L) 0.04 - 0.36 K/L [facility] # Baso 0.02 0.01 - 0.08 K/L [facility] Immature 0 0 - 1 % [facility] Granulocytes-Relative [facility] Specimen Blood - Arm, Left Performing Organization Address City/State/Zipcode Phone Number [facility] [address] [place] [address] [facility] * [place] registered radiation therapist in or 30 minute increments (05/27/2017 1:00 PM MARKET SALES MANAGER) Narrative Performed At PROCEDURE PERFORMED IN O.R. - PLEASE REFER TO THE INTRAOPERATIVE [facility] REPORT. Procedure Note Interface, External Ris In - 06/10/2017 2:19 PM MARKET SALES MANAGER PROCEDURE PERFORMED IN O.R. - PLEASE REFER TO THE INTRAOPERATIVE REPORT. Performing Organization Address City/State/Zipcode Phone Number GE [facility] * TRANSFUSION SERVICE REPORT - SCAN (05/22/2017 5:47 PM MARKET SALES MANAGER) Narrative Performed At * XR chest 2 views (05/21/2017 12:55 PM MARKET SALES MANAGER) Narrative Performed At FINAL REPORT [facility] Chest, PA and lateral. History: Preoperative evaluation. [...] MD Report Verified Date/Time:05/21/2017 13:40:14 Reading Location: [address] Radiology Reading Room Procedure Note Interface, External Ris In - 05/21/2017 1:42 PM MARKET SALES MANAGER FINAL REPORT Chest, PA and lateral. History: [...] Report Verified Date/Time: 05/21/2017 13:40:14 Reading Location: [address] Radiology Reading Room Performing Organization Address City/[facility] Phone Number [facility] * ECG 12 lead (05/21/2017 12:10 PM MARKET SALES MANAGER) Narrative Performed At Ventricular Rate 81 BPM GE MUSE Atrial Rate 81 BPM P-R Interval 184 ms QRS Duration 94 ms Q-T Interval 368 ms QTC Calculation(Bazett) 427 ms P Mercer 33 degrees R Mercer 28 degrees T Mercer 79 degrees Sinus rhythm with marked sinus arrhythmia Otherwise normal ECG No previous ECGs available Confirmed by Jaylin PEREZ BASANT ([id number]) on 05/22/2017 9:05:17 AM Procedure Note Interface, External Ris In - 05/22/2017 9:05 AM MARKET SALES MANAGER Ventricular Rate 81 BPM Atrial Rate 81 BPM P-R Interval 184 ms QRS Duration 94 ms Q-T Interval 368 ms QTC Calculation(Bazett) 427 ms P Mercer 33 degrees R Mercer 28 degrees T Mercer 79 degrees Sinus rhythm with marked sinus arrhythmia Otherwise normal ECG No previous ECGs available Confirmed by Jaylin PEREZ BASANT ([id number]) on 05/22/2017 9:05:17 AM Performing Organization Address [facility] Phone Number GE MUSE * Urinalysis w/Microscopic + Reflex to Culture (05/21/2017 12:09 PM MARKET SALES MANAGER) Color, UA Yellow [facility] Clarity, UA Clear [facility] Specific [place], UA 1.024 1.001 - 1.035 [facility] pH, UA 7.0 5.0 - 8.0 [facility] Protein, UA 20 mg/dL (A) Negative [facility] Glucose, UA Negative Negative [facility] Ketones, UA Negative Negative [facility] Bilirubin, UA Negative Negative [facility] Blood, UA Negative Negative [facility] Nitrite, UA Negative Negative [facility] Leukocytes, UA Negative Negative [facility] Urobilinogen, UA 2.0 (H) 0.2 - 1.0 mg/dL [facility] RBC, UA 1 /HPF [facility] WBC, UA 1 /HPF [facility] Bacteria, UA Occasional [facility] Mucus Rare [facility] Squam Epithel, UA 2 /HPF [facility] Specimen Source [facility] Specimen Urine Performing Organization Address City/[facility] Phone Number [address] * Type and screen, automated (05/21/2017 12:09 PM MARKET SALES MANAGER) ABO/RH AUTOMATED (BEAKER) O POSITIVE [facility] Ab Scrn NEGATIVE [facility] Specimen Blood Performing Organization Address City/[facility] Phone Number [address] * aPTT (05/21/2017 12:08 PM MARKET SALES MANAGER) PTT 31.9 22.5 - 36.0 seconds [facility] Specimen Blood Performing Organization Address City/[facility] Phone Number [address] * Prothrombin time/INR (05/21/2017 12:08 PM MARKET SALES MANAGER) Protime 14.4 11.7 - 14.7 seconds [facility] INR 1.1 <=5.9 [facility] Specimen Blood Narrative Performed At RECOMMENDED COUMADIN/WARFARIN INR THERAPY RANGES [facility] STANDARD DOSE: 2.0 - 3.0 Includes: PROPHYLAXIS for venous thrombosis, [facility] systemic embolization; TREATMENT for venous thrombosis and/or pulmonary embolus. HIGH RISK: Target INR is 2.5-3.5 for patients with mechanical heart valves. Performing Organization Address City/State/Zipcode Phone Number [facility] [address], [place] [id number] MEDICAL CENTER after 05/06/2017 Insurance Payer Benefit Subscriber ID Type Phone Address Plan / Group MEDICARE MEDICARE A xxxxxxxxxx Medicare B MCR SUPPLEMENT/INDIVIDUAL AETNA xxxxxxxxxx SENIOR SUPPLEMENT [place] (Home) [address] [id number] Advance Directives For more information, please contact: [place] [id number] [place] [address] Date Inactivated Comments Code Status Date Activated 05/28/2017 5:28 PM Full Code 05/27/2017 9:11 AM This code status was determined by: Patient
--- OUTSIDE RECORDS SUMMARY | 2018-05-07 05:40 | XMS REPORT | Summary of Care ---
Author Author [facility] Outpatient Imaging [facility] Outpatient [facility] Address Unknown Phone Unavailable Encounter SIMONE Kong(KIRK) [phone] Date(s): 05/16/17 - 05/16/17 [facility] Imaging [facility] [address] [facility], [address] [place] [phone] Discharge Disposition: Home or Self Care Attending Physician: Zelda Shea MD Vital Signs No data available for this section Problem List Condition Effective Dates Status Health Status Informant Acid Active reflux(Confirmed) Anxiety(Confirmed) Active Back ache(Confirmed) Active Chronic Active pain(Confirmed) Depression(Confirmed Active ) Glasses(Confirmed) Active Non healing left Active heel wound(Confirmed) Lung Resolved anomaly(Confirmed)1 Neuropathy(Confirmed Active ) Numbness(Confirmed)2 Active Osteoarthritis(Confi Active rmed) RLS (restless legs Active syndrome)(Confirmed) Seasonal Active allergy(Confirmed) Uses Active walker(Confirmed) 1one functioniong lung 2leg Allergies, Adverse Reactions, Alerts Substance Reaction Severity Status clindamycin Active methadone Active morphine Itching Active Dilaudid Active Medications No data available for this section Results No data available for this section Immunizations No data available for this section Procedures Procedure Date Related Diagnosis Body Site Primary reverse polarity total prosthetic 10/04/13 replacement of shoulder joint using cement Carpal tunnel release1 06/23/08 Cholecystectomy 06/23/03 Excision of mass of neck 06/23/96 Breast biopsy and related procedures 06/23/88 Hysterectomy 06/23/85 Cervical spinal fusion 06/23/72 Tonsillectomy 06/23/51 Arthroplasty of shoulder Back fusion2 Fasciotomy Foot joint operations 1twice 1997, 2008 25 surgery 2004, 2012 Social History Social History Type Response Substance Abuse Previous Treatment: None. Sexual Sexually active: No. Exercise Exercise duration: 0. Employment/School Operates hazardous equipment: No. Alcohol Previous treatment: None. Alcohol use interferes with work or home: No. Smoking Status Never smoker; Previous treatment: None; Exposure to Tobacco Smoke None; Cigarette Smoking Last 365 Days No; Reg Smoking Cessation Counseling No Assessment and Plan No data available for this section
--- OUTSIDE RECORDS SUMMARY | 2018-05-07 05:40 | XMS REPORT | Continuity of Care Document ---
Author Author [facility] Interface Address Unknown Phone Unavailable Problems Problem Status Onset Date Classification Date Reported Comments Source DX: M54.12=RADICULOPATHY, CERVICAL REGIO Active 04/09/2017 [facility] Replacement Active 10/06/2013 [facility] OSTEOARTHROS NOS-SHLDER Active 10/05/2013 Home Health JOINT REPLACED SHOULDER Active 10/04/2013 [facility] HTN Active 10/04/2013 [facility] ESOPHAGEAL REFLUX Active 10/04/2013 [facility] Depression Active 10/04/2013 Home Health PERSON LIVING ALONE Active 10/04/2013 Home Health JOINT PAIN-SHLDER Active 10/04/2013 [facility] Acid reflux [facility] Back ache [facility]/19[facility] Chronic pain [facility] 05[facility]19[facility]2017 [facility] Depression Active [facility]/19[facility]2017 [facility] Glasses Active [facility] 05/19[facility]2017 [facility] Non healing left heel wound Active Problem 05/19/2017 [facility] 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 [facility] Neuropathy Active Problem 05/19[facility]2017 [facility] Numbness<sup>2</sup> Active Problem 05/19/2017 [facility] Osteoarthritis Active Problem 05/19/2017 [facility] RLS (<span ID="[id number]">Confirmed</span>) Active Problem 05/19/2017 [facility] Seasonal allergy Active [facility]/19[facility] Active Problem 05/19/2017 [facility] SHOULDER Active [facility] [place] OTH ABN AND INCONCLUSIVE FINDINGS ON DX Active [facility] RADICULOPATHY, CERVICAL REGION Active [facility] Medications Medication Details Route Status Patient Instructions Ordering Provider Order Date Source pantoprazole 40 mg oral enteric coated tablet 40 mg=1 tab, PO, Daily, # 90 tab, 1 Refill(s) Active 05/08/2017 [facility] gabapentin 800 MG Oral Tablet 800 mg=1 tab, PO, TID, # 90 tab, 3 Refill(s) Active 05/08/2017 [facility] amitriptyline 100 mg oral tablet 100 mg=1 tab, PO, Bedtime, # 90 tab, 0 Refill(s) Active 05/08/2017 [facility] Furosemide 40 MG Oral Tablet 40 mg=1 tab, PO, Daily, # 90 tab, 1 Refill(s) Active 05/08/2017 [facility] Mirapex 2 mg, PO, TID, 0 Refill(s) Active 05/08/2017 [facility] cephalexin 500 mg oral tablet 500 mg=1 tab, PO, TID, # 28 tab, 0 Refill(s) Active 05/08/2017 [facility] metoprolol 25 mg oral tablet, extended release 25 mg=1 tab, PO, Bedtime, # 90 tab, 3 Refill(s) Active 05/08/2017 [facility] Lisinopril, 5 MG, Tablet Oral Claudia 10/29/2013 [facility] Azithromycin, 1 GM, Packet Oral Claudia 10/27/2013 [facility] Acetaminophen, 500 MG, Tablet Oral Claudia 10/27/2013 [facility] Furosemide, 20 MG, Tablet Oral Claudia 10/19/2013 [facility] Pramipexole Dihydrochloride, 0.75 MG, Tablet Oral Claudia 10/19/2013 [facility] Furosemide, 20 MG, Tablet Oral Claudia 10/12/2013 [facility] ROPINIRole HCl, 0.25 MG, Tablet Oral Claudia 10/06/2013 [facility] Allergies, Adverse Reactions, Alerts Substance Category Reaction Severity Reaction type Status Date Reported Comments Source morphine Assertion Itching Drug allergy Active 09/29/2013 [facility] Morphine Derivatives Datatype(AL1.2)-DA Active 10/06/2013 [facility] clindamycin Assertion Drug allergy Active [facility] methadone Assertion Drug allergy Active [facility] Dilaudid Assertion Drug allergy Active [facility] Immunizations Immunization Date Given Site Status Last Updated Comments Source Results Order Name Results Value Reference Range Date Interpretation Comments Source Ext Artery Single Level Bilat US Ext Artery Single Level Bilat US EXAM: ULTRASOUND BILATERAL LOWER EXTREMITIES SINGLE LEVEL ANKLE BRACHIAL INDEX DATE: 05/16/2017 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 Bilateral leg swelling with pain for the past one year. Claudication in both lower extremities. COMPARISON: None TECHNIQUE: Ankle and brachial blood pressures were obtained for the purposes of calculations of JENN utilizing Doppler sonography. FINDINGS: Right brachial blood pressure: 143/77 Left brachial blood pressure: 118/69 Right ankle blood pressure: 99/60 Left ankle blood pressure : 150/90 Right ankle brachial index: 0.69 Left ankle brachial index: 1.0 IMPRESSION: 1. Normal left ankle brachial index. 2. Abnormal right ankle-brachial index of 0.69 suggestive of peripheral arterial disease. RECOMMENDATION: Formal bilateral lower extremity arterial duplex Doppler ultrasound 05/16/2017 - - Read by: Bradly Carrera MD Dictated Date/time: 05/16/17 09:35 Electronically Signed by: Bradly Carrera MD 05/16/17 09:43 FINAL REPORT [facility] ELECTROLYTES Sodium Lvl 140 meq/L 135 - 145 05/09/2017 [facility] ELECTROLYTES Potassium Lvl 4.4 meq/L 3.5 - 5.1 05/09/2017 [facility] ELECTROLYTES Chloride Lvl 100 meq/L 95 - 109 05/09/2017 [facility] ELECTROLYTES CO2 37 meq/L 24 - 32 05/09/2017 [facility] ELECTROLYTES AGAP 7.4 meq/L 10.0 - 20.0 05/09/2017 [facility] Spine cervical wo contrast MRI Spine cervical wo contrast MRI Patient Name: LAKEISHA GIL : 1945; Age: 71 years y/o Female MR: [id number] Study: Spine cervical wo contrast MRI 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 Pt c/o severe neck pain. Dilip - Under Anesthesia. Exam was aborted Per Dr. Gandara due to a unidentified metallic artifact seen on her c-spine. Dilip; Comparison: None TECHNIQUE: Multiplanar T1, T2, and STIR weighted MRI of the cervical spine is performed. FINDINGS: The visualized brainstem and craniocervical junction are within normal limits. No abnormal signal, expansion, or syrinx is visualized in the cervical spinal cord. No prevertebral soft tissue swelling, paravertebral masses, or abnormal fluid collections are identified. Cervical vertebral body height and alignment are maintained. Marrow signal is benign. The appearance of individual disk spaces are as described below: C2/C3: Slight central bulge/protrusion.. C3/C4: Slight central bulge/protrusion. C4/C5: No evidence for central canal stenosis. C5/C6: No evidence for central canal stenosis. C6/C7: No evidence for central canal stenosis. C7/T1: No evidence for central canal stenosis. IMPRESSION: 1. Multilevel multifactorial spondylosis and central canal stenosis. 2. Limited study due to susceptibility artifact at the C5-C6 region posteriorly and the lack of axial images. Central canal stenosis or even mild cord compression cannot be excluded. CT myelogram could be performed to better evaluate this as clinically indicated. See a detailed level by level analysis above in the findings. SL: [id number] 05/09/2017 - - Read by: Andre Hartley DO Dictated Date/time: 05/10/17 22:11 Electronically Signed by: Andre Hartley DO 05/10/17 22:22 FINAL REPORT [facility] Spine lumbar 2 or 3 views DX Spine lumbar 2 or 3 views DX Spine lumbar 2 or 3 views DX COMPARISON: 06/10/2016 CLINICAL HISTORY: - xr for MRI clearance. Per Dr. Gandara. Dilip; FINDINGS: 2 views of the lumbar spine are submitted for review. Extensive postsurgical change is visualized in the lumbar spine. Multiple transpedicular screws are visualized throughout the visualized thoracolumbar spine. Intervertebral disc spacers are also noted to be in place. Previously noted bone graft stimulator has been removed in the interim. IMPRESSION: Interval removal of bone fusion stimulator. SL: [id number] 05/09/2017 - - Read by: Steven Gandara MD Dictated Date/time: 05/09/17 11:49 Electronically Signed by: Steven Gandara MD 05/09/17 11:51 FINAL REPORT [facility] Vital Signs Vital Sign Value Date Comments Source Heart Rate 56 05/09/2017 [facility] Systolic (mm Hg) 156 05/09/2017 [facility] Diastolic (mm Hg) 95 05/09/2017 [facility] Heart Rate 55 05/09/2017 [facility] Systolic (mm Hg) 158 05/09/2017 [facility] Diastolic (mm Hg) 89 05/09/2017 [facility] Heart Rate 51 05/09/2017 [facility] Systolic (mm Hg) 112 05/09/2017 [facility] Diastolic (mm Hg) 54 05/09/2017 [facility] Temperature Oral (F) 97.6 F 05/09/2017 [facility] Weight 120.455 05/08/2017 [facility] BMI Calculated 45.58 05/08/2017 [facility] Height 162.56 cm 05/08/2017 [facility] Encounters Location Location Details Encounter Type Encounter Number Reason For Visit Attending Provider ADM Date DC Date Status Source [place] [address] Outpatient [id number] 10/06/2013 11/12/2013 Active [facility] Outpatient [id number] Zelda Shea 05/09/2017 05/09/2017 [facility] Outpatient [facility] [id number] Zelda Palvasheri 05/16/2017 05/17/2017 [facility] Procedures Procedure Code Date Perfomer Comments Source 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 [id number] 10/04/2013 [facility] 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 [id number] 10/04/2013 [facility] Carpal tunnel release<sup>1</sup> [id number] 06/23/2008 twice 1997, 2008 [facility] Carpal tunnel release<sup>1</sup> [id number] 06/23/2008 twice 1997, 2008 [facility] Cholecystectomy [id number] 06/23/2003 [facility] Cholecystectomy [id number] 06/23/2003 [facility] Excision of mass of neck [id number] 06/23/1996 [facility] Excision of mass of neck 827268732 06/23/1996 [facility] Breast biopsy and related procedures [id number] 06/23/1988 [facility] Breast biopsy and related procedures [id number] 06/23/1988 [facility] Hysterectomy [id number] 06/23/1985 [facility] Hysterectomy [id number] 06/23/1985 [facility] Cervical spinal fusion [id number] 06/23/1972 [facility] Cervical spinal fusion [id number] 06/23/1972 [facility] Tonsillectomy [id number] 06/23/1951 [facility] Tonsillectomy [id number] 06/23/1951 [facility] Arthroplasty of shoulder [id number] [facility] Back fusion<sup>2</sup> [id number] 5 surgery 2004, 2012 [facility] Fasciotomy [id number] [facility] Foot joint operations [id number] [facility] Arthroplasty of shoulder [id number] [facility] Back fusion<sup>2</sup> [id number] 5 surgery 2004, 2012 [facility] Fasciotomy [id number] [facility] Foot joint operations [id number] [facility]
--- OUTSIDE RECORDS SUMMARY | 2018-05-07 05:40 | XMS REPORT ---
[facility] Address Unknown Phone Unavailable Care Team Providers Care Section Beamer Name Role Phone HAMILTONPHIL WALLACE Unavailable Unavailable MANDI REBOLLAR Unavailable Unavailable LU GUTHRIE Unavailable Unavailable Payers Payer Name Policy Type Policy Number Effective Date Expiration Date Problems This patient has no known problems. Allergies, Adverse Reactions, Alerts Allergy Name Allergy Type Status Severity Reaction(s) Onset Date Inactive Date Treating Clinician Comments morphine DA Active 2018-02-20 00:00:00 clindamycin DA Active SV 2018-02-20 00:00:00 hydromorphone DA Active 2018-02-20 00:00:00 methadone DA Active SV 2018-02-20 00:00:00 hydromorphone DA Active SV 2018-02-10 00:00:00 morphine DA Active SV 2017-12-30 00:00:00 clindamycin DA Active SV 2017-12-30 00:00:00 methadone DA Active SV 2017-12-30 00:00:00 Medications This patient has no known medications. Results Test Description Test Time Test Comments Text Results Atomic Results Result Comments BONE SCAN, 3 PHASE 2017-12-17 22:29:00 [facility] [address] [place], [place] [address] Patient Name: LAKEISHA GIL MR #: [id number] : 1945 Age/Sex: 72/F Req #: [id number] Adm Physician: Ordered by: PHIL HAMILTON DPM Report #: [id number] Location: [place] Room/Bed: Procedure: [id number] NM/BONE SCAN, 3 PHASE Exam Date: 12/17/17 Exam Time: 1315 REPORT STATUS: Signed Bone Scan, three-phase Reason for exam: 72 F with open, nonhealing wound at plantar aspect of left heel. Radiopharmaceutical: Tc-99m MDP 20 mCi Comparison: CT left foot 07/20/2017l; left foot radiographs 10/29/2017 Following intravenous administration of the radiopharmaceutical, dynamic flow and immediate blood pool images of the feet and ankles followed by 3-hour delayed selected spot images were obtained. Flow and blood pool images show diffuse mildly increased tracer activity in the left foot and ankle compared to the right with markedly increased tracer in the posterior aspect of the right calcaneus. The delayed images show focal increased tracer activity in most of the posterior portion of the right calcaneus. Diffusely increased tracer activity is also seen throughout the ad jacent soft tissues. Impression: Scan evidence of osteomyelitis in the posterior aspect of the left calcaneus. The CT examination of the left foot on 07/20/2017 showed osteomyelitis in the left calcaneus at that time. If the patient's treatment regimen is thought to have been adequate for osteomyelitis, it is possible that infection has been eradicated and the remaining osteoblastic activity persists solely as part of remodeling. If this is of concern, a labeled white blood cell study is a better biomarker for end point of therapy. Signed by: Dr. Abdullahi Santoro M.D. on 12/17/2017 10:42 PM Dictated By: ABDULLAHI SANTORO MD 41 Transcribed By: GEOFFREY on 12/17/172241 COPY TO: PHIL HAMILTON DPM [place], MAILING SPECIALIST IN OR/30 MINUTE INCREMENTS 2017-06-10 14:19:00 Reason for exam:->TRIAL OF SPINAL CORD STIMULATOR VIA LAMINECTOMY PROCEDURE PERFORMED IN O.R. - PLEASE REFER TO THE INTRAOPERATIVE REPORT. C METABOLIC PANEL 2017-05-28 10:13:00 SODIUM (BEAKER) (test jpki=210) 142 meq/L 136-145 POTASSIUM (BEAKER) (test cglo=265) 3.2 meq/L 3.5-5.1 CHLORIDE (BEAKER) (test visj=528) 101 meq/L 98-107 CO2 (BEAKER) (test bmxw=149) 34 meq/L 22-29 BLOOD UREA NITROGEN (BEAKER) (test gihw=899) 19 mg/dL 7-21 CREATININE (BEAKER) (test aqfw=156) 0.78 mg/dL 0.57-1.25 GLUCOSE RANDOM (BEAKER) (test dcex=736) 80 mg/dL 70-105 CALCIUM (BEAKER) (test tiks=427) 8.6 mg/dL 8.4-10.2 EGFR (BEAKER) (test tvtg=1094) 73 mL/min/1.73 sq m ESTIMATED GFR IS NOT ACCURATE CREATININE CLEARANCE IN PREDICTING GLOMERULAR FILTRATION RATE. ESTIMATED GFR IS NOT APPLICABLE FOR DIALYSIS PATIENTS. CBC W/PLT COUNT & AUTO [id number] 09:49:00* Test Item Value Reference Range Comments WHITE BLOOD CELL COUNT (BEAKER) (test lmmo=539) 8.9 K/ L 3.5-10.5 RED BLOOD CELL COUNT (BEAKER) (test ewub=785) 3.66 M/ L 3.93-5.22 HEMOGLOBIN (BEAKER) (test rtue=944) 10.3 GM/DL 11.2-15.7 HEMATOCRIT (BEAKER) (test qigk=914) 34.8 % 34.1-44.9 MEAN CORPUSCULAR VOLUME (BEAKER) (test ptbf=728) 95.1 fL 79.4-94.8 MEAN CORPUSCULAR HEMOGLOBIN (BEAKER) (test wmis=958) 28.1 pg 25.6-32.2 MEAN CORPUSCULAR HEMOGLOBIN CONC (BEAKER) (test aauj=092) 29.6 GM/DL 32.2-35.5 RED CELL DISTRIBUTION WIDTH (BEAKER) (test lxmg=926) 15.1 % 11.7-14.4 PLATELET COUNT (BEAKER) (test ohqz=239) 292 K/CU MM 150-450 MEAN PLATELET VOLUME (BEAKER) (test qvss=122) 9.7 fL 9.4-12.3 NUCLEATED RED BLOOD CELLS (BEAKER) (test mtcf=968) 0 /100 WBC 0-0 NEUTROPHILS RELATIVE PERCENT (BEAKER) (test fgqt=338) 77 % LYMPHOCYTES RELATIVE PERCENT (BEAKER) (test sded=726) 17 % MONOCYTES RELATIVE PERCENT (BEAKER) (test thri=603) 5 % EOSINOPHILS RELATIVE PERCENT (BEAKER) (test vgqo=535) 0 % BASOPHILS RELATIVE PERCENT (BEAKER) (test hptd=443) 0 % NEUTROPHILS ABSOLUTE COUNT (BEAKER) (test pxse=422) 6.83 K/ L 1.56-6.13 LYMPHOCYTES ABSOLUTE COUNT (BEAKER) (test aeyi=419) 1.55 K/ L 1.18-3.74 MONOCYTES ABSOLUTE COUNT (BEAKER) (test kxgr=011) 0.46 K/ L 0.24-0.36 EOSINOPHILS ABSOLUTE COUNT (BEAKER) (test ixhr=019) 0.03 K/ L 0.04-0.36 BASOPHILS ABSOLUTE COUNT (BEAKER) (test kkan=776) 0.02 K/ L 0.01-0.08 IMMATURE GRANULOCYTES-RELATIVE PERCENT (BEAKER) (test ifxh=8439) 0 % 0-1 BASIC METABOLIC [id number] 13:45:00* Test Item Value Reference Range Comments SODIUM (BEAKER) (test avfc=376) 142 meq/L 136-145 POTASSIUM (BEAKER) (test xgac=182) 3.5 meq/L 3.5-5.1 CHLORIDE (BEAKER) (test jsww=466) 96 meq/L 98-107 CO2 (BEAKER) (test kbuf=237) 38 meq/L 22-29 BLOOD UREA NITROGEN (BEAKER) (test kfzp=583) 20 mg/dL 7-21 CREATININE (BEAKER) (test djpj=797) 0.76 mg/dL 0.57-1.25 GLUCOSE RANDOM (BEAKER) (test foah=352) 84 mg/dL 70-105 CALCIUM (BEAKER) (test faso=949) 9.2 mg/dL 8.4-10.2 EGFR (BEAKER) (test rnfx=6417) 75 mL/min/1.73 sq m ESTIMATED GFR IS NOT ACCURATE CREATININE CLEARANCE IN PREDICTING GLOMERULAR FILTRATION RATE. ESTIMATED GFR IS NOT APPLICABLE FOR DIALYSIS PATIENTS. RAD, CHEST, 2 [id number] 13:40:00Reason for exam:->pre op testingFINAL REPORT Chest, PA and lateral. History: Preoperative evaluation. Comparison: None available. Discussion: The cardiomediastinal silh ouette and pulmonary vasculature are within normal limits. The lungs are clear w ithout evidence of consolidation or effusion. There are no acute osseous abnorm alities. Patient is status post posterior spinal fusion from the midthoracic lev el through the lumbar spine. Patient status post left shoulder arthroplasty. IMP RESSION: No acute cardiopulmonary abnormality. Signed: Savage Snyder MDReport Verified Date/Time: 05/21/2017 13:40:14 Reading Location: [address] Reading Room Electronically signed by: SAVAGE SNYDER on 7 01:40 PM URINALYSIS W/ REFLEX URINE [id number] 13:33:00* Test Item Value Reference Range Comments COLOR (BEAKER) (test qjhh=060) Yellow CLARITY (BEAKER) (test gnnh=119) Clear SPECIFIC GRAVITY UA (BEAKER) (test wxru=072) 1.024 1.001-1.035 PH UA (BEAKER) (test plit=984) 7.0 5.0-8.0 PROTEIN UA (BEAKER) (test zmos=848) 20 mg/dL Negative GLUCOSE UA (BEAKER) (test zvwv=260) Negative Negative KETONES UA (BEAKER) (test oezw=561) Negative Negative BILIRUBIN UA (BEAKER) (test eltx=002) Negative Negative BLOOD UA (BEAKER) (test evox=626) Negative Negative NITRITE UA (BEAKER) (test sowk=216) Negative Negative LEUKOCYTE ESTERASE UA (BEAKER) (test kbyf=447) Negative Negative UROBILINOGEN UA (BEAKER) (test rmrv=738) 2.0 mg/dL 0.2-1.0 RBC UA (BEAKER) (test mcxt=950) 1 /HPF WBC UA (BEAKER) (test utsm=684) 1 /HPF BACTERIA (BEAKER) (test soto=956) Occasional MUCUS (BEAKER) (test rnke=9764) Rare SQUAMOUS EPITHELIAL (BEAKER) (test dbev=841) 2 /HPF SOURCE(BEAKER) (test hvjl=5488) [id number] 13:26:00* Test Item Value Reference Range Comments PARTIAL THROMBOPLASTIN TIME (BEAKER) (test yeal=913) 31.9 seconds 22.5-36.0 PROTHROMBIN TIME/[id number] 13:25:00* Test Item Value Reference Range Comments PROTIME (BEAKER) (test ukpb=837) 14.4 seconds 11.7-14.7 INR (BEAKER) (test kuys=696) 1.1 <=5.9 RECOMMENDED COUMADIN/WARFARIN INR THERAPY RANGESSTANDARD DOSE: 2.0 - 3.0 Inclu cece: PROPHYLAXIS for venous thrombosis, systemic embolization; TREATMENT for joe ous thrombosis and/or pulmonary embolus.HIGH RISK: Target INR is 2.5-3.5 for pat ients with mechanical heart valves.CBC W/PLT COUNT & AUTO [id number] 13:08:00* Test Item Value Reference Range Comments WHITE BLOOD CELL COUNT (BEAKER) (test hxpo=047) 7.7 K/ L 3.5-10.5 RED BLOOD CELL COUNT (BEAKER) (test kbfv=217) 3.81 M/ L 3.93-5.22 HEMOGLOBIN (BEAKER) (test kaso=012) 10.7 GM/DL 11.2-15.7 HEMATOCRIT (BEAKER) (test apqo=982) 35.7 % 34.1-44.9 MEAN CORPUSCULAR VOLUME (BEAKER) (test gtkt=647) 93.7 fL 79.4-94.8 MEAN CORPUSCULAR HEMOGLOBIN (BEAKER) (test bdle=106) 28.1 pg 25.6-32.2 MEAN CORPUSCULAR HEMOGLOBIN CONC (BEAKER) (test eopg=371) 30.0 GM/DL 32.2-35.5 RED CELL DISTRIBUTION WIDTH (BEAKER) (test nkti=323) 15.0 % 11.7-14.4 PLATELET COUNT (BEAKER) (test gzxg=136) 272 K/CU MM 150-450 MEAN PLATELET VOLUME (BEAKER) (test givj=129) 10.4 fL 9.4-12.3 NUCLEATED RED BLOOD CELLS (BEAKER) (test hflw=982) 0 /100 WBC 0-0 NEUTROPHILS RELATIVE PERCENT (BEAKER) (test kqkd=326) 71 % LYMPHOCYTES RELATIVE PERCENT (BEAKER) (test dfqe=144) 16 % MONOCYTES RELATIVE PERCENT (BEAKER) (test phay=088) 10 % EOSINOPHILS RELATIVE PERCENT (BEAKER) (test tnik=157) 2 % BASOPHILS RELATIVE PERCENT (BEAKER) (test ozzu=468) 0 % NEUTROPHILS ABSOLUTE COUNT (BEAKER) (test jcmn=124) 5.48 K/ L 1.56-6.13 LYMPHOCYTES ABSOLUTE COUNT (BEAKER) (test wopl=531) 1.21 K/ L 1.18-3.74 MONOCYTES ABSOLUTE COUNT (BEAKER) (test zzkd=411) 0.77 K/ L 0.24-0.36 EOSINOPHILS ABSOLUTE COUNT (BEAKER) (test qwqw=705) 0.17 K/ L 0.04-0.36 BASOPHILS ABSOLUTE COUNT (BEAKER) (test fwka=093) 0.02 K/ L 0.01-0.08 IMMATURE GRANULOCYTES-RELATIVE PERCENT (BEAKER) (test zkml=7389) 0 % 0-1 CHEST XRAY LINE PLACEMENT [place] [address] Patient Name: LAKEISHA GIL MR #: [id number] : 1945 Age/Sex: 72/F Req #: [id number] Adm Physician: MANDI REBOLLAR MD Ordered by: BEVERLY CASTANON MD Report #: [id number] Location: MED/SURG2 Room/Bed: 210- Procedure: [id number] DX/CHEST XRAY LINE PLACEMENT Exam Date: 10/29/17 Juanito means Time: 1550 REPORT STATUS: Signed PROCEDURE: A single AP view of the chest. COMPARISON: 10/27/17 INDICATIONS: PICC LINE PLACEMENT FINDINGS: Lines/tubes: New PICC in place with tip overlying mid SVC. Lungs: Limited by body habitus and low lung volumes. No focal consolidation. Pleura: There is no pleural effusion or pneumothorax. Heart and mediastinum: Cardiac silhouette is mildly prominent. Bones: Thoracolumbar posterior fusion. The visualized hardware is intact. Left shoulder arthroplasty. IMP RESSION: New right PICC in place with tip overlying mid SVC. No visible pne umothorax. Dictated by: Osmar Kendrick M.D. on 10/29/2017 at 16:14 Electronically approved by: Osmar Kendrick M.D. on 10/29/2017 at 16:14 Dictated By: OSMAR KENDRICK MD 1614 Transcribed By: KELLY on 10/29/17 1614 COPY TO: BEVERLY CASTANON MD FOOT LEFT COMPLETE [place] [address] Patient Name: LAKEISHA GIL MR #: [id number] : 1945 Age/Sex: 72/F Req #: [id number] Adm Physician: MANDI REBOLLAR MD Ordered by: MERCEDES THOMPSON DPM Report #: [id number] Location: MED/SURG2 Room/Bed: [facility] Procedure: [id number] DX/FOOT LEFT COMPLETE Exam Date: 10/29/17 Exam Haseeb e: 7569 REPORT STATUS: Signed PROCEDURE: X-RAY LEFT FOOT, COMPLETE COMPARISON: CT left foot 07/20/2017. INDICATIONS: PRESSURE ULCER LE FT HEEL FINDINGS: Soft tissue prominence is present in the posterior aspect of the foot adjacent to the inferior margin of the calcaneus. Minimal air is noted in the subcutaneous tissues, consistent with history of ulcer. M inimal periosteal changes are present along the inferior margin of the olivier caneus. There are no fractures, dislocations, lytic or blastic lesions. T he bones are well-mineralized. CONCLUSION: Soft tissue densit y in the heel consistent with known wound, as visualized on the previous CT o f the foot. Periosteal changes of the calcaneus may represent osteomyelitis. Correlate with physical examination for the need of an MRI of the foot for further characterization. Dictated by: Aliya Montgomery M.D. on 10/29/2017 at 8:48 Electronically approved by: Aliya Montgomery M.D. on 10/29/2017 at 8:48 Dictated By: ALIYA MONTGOMERY MD 7 Transcribed By: KELLY on 10/29/17847 COPY TO: MERCEDES THOMPSON DPM CHEST SINGLE (NOT PORTABLE) [place] [address] Patient Name: LAKEISHA GIL MR #: [id number] : 1945 Age/Sex: 72/F Req #: [id number] Adm Physician: Ordered by: JANET CHAVES NP Report #: [id number] Location: ER Room/Bed: Procedure: [id number] DX/CHEST SINGLE (NOT PORTAB LE) Exam Date: 10/27/17 Exam Time: 1720 REPORT STATUS: Signed PROCEDURE: A single AP view of the chest. COMPARISON: 07/19/17 INDICATIONS: FEVER, WEAKNESS FINDINGS: Lines/tubes: The distal leads of spine stimulator device are visualized. Lungs: Hayes ited by body habitus and low lung volumes. No focal consolidation. Pleu ra: There is no pleural effusion or pneumothorax. Heart and mediastinum: Cardiac silhouette is mildly prominent. Bones: Thoracolumbar posterior fus ion. The visualized hardware is intact. Left shoulder arthroplasty. IMP RESSION: No definite acute cardiopulmonary disease. Dictated by: Erick Kendrick M.D. on 10/27/2017 at 17:41 Electronically approved by: Giovanna Kendrick M.D. on 10/27/2017 at 17:42 Dictated By: OSMAR BARAJAS MD 41 Transcribed By: KELLY on 10/27/171741 COPY TO: JANET CHAVES PROFESSOR OF EDUCATION CT FOOT LEFT W [place] [address] Patient Name: LAKEISHA GIL MR #: [id number] : 1945 Age/Sex: 71/F Req #: [id number] Adm Physician: MANDI REBOLLAR MD Ordered by: CLIFFORD BOJORQUEZ DPLinn Report #: [id number] Location: [facility] Room/Bed: [facility] Procedure: CT/CT FOOT LEFT W Exam Date: 07/20/17 Exam Time: 0111 REPORT STATUS: Signed CT FOOT LEFT W Clinical history: Osteom yelitis, edema, cellulitis Technique: Volumetric CT scan of the left foot f oot was performed. 100 mL of Isovue-370 was administered. Coronal, sagittal a nd axial images are generated from source data. Comparison: None Fin dings: Bones/Soft tissues: There is marked soft tissue edema with ulceration a nd fluid/phlegmon along the inferior posterior aspect of the calcaneus. Underl иван cortical/bony destruction is seen involving the inferior posteromedial calcaneus. No fractures or dislocations. Moderate midfoot degenerative changes. Chronic ossicles adjacent to the medial malleolus and posterior talus sugges ting prior trauma. Mild tibiotalar joint space narrowing/degenerative change, worse medially with likely reactive talar sclerosis. Overall, there is decreas ed bone mineralization. 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 Nonemergent follow-up MRI could performed to evaluate extent of disease. Signed by: Dr Bonita matias MD on 07/20/2017 2:03 AM Dictated By: BONITA CASTANO MD Electronical ly Signed By: BONITA CASTANO MD on 07/20/17202 Transcribed By: GEOFFREY on 202 COPY TO: CLIFFORD BOJORQUEZ DPM HIP RIGHT 2-3 VW (+/- PELVIS) [place] [address] Patient Name: LAKEISHA GIL MR #: [id number] : 1945 Age/Sex: 71/F Req #: [id number] Adm Physician: MANDI REBOLLAR MD Ordered by: MANID REBOLLAR MD Report #: [id number] Location: MED/SURG2 Room/Bed: [facility] [place] Procedure: [id number] DX/HIP RIGHT 2-3 VW (+/- PELVIS) Exam Date: Exam T thee: REPORT STATUS: Signed RIGHT HIP X-RAY - 3 VIEWS HISTORY: COMPARISON: None available. FINDINGS: Bones: No acute displaced fracture. Partially visualized hardware in the lower lumbar spine. Osseous alignment is within normal limits. Joints: Degenerative changes of both sacroiliac joints and acetabular femoral joints. Soft tissues: The soft tissues appear unremarkable. Partially visualized metallic device in the left lower quadrant. IMPRESSION: No acute radiographic abnormali ty. Signed by: Dr. Alana Lacey M.D. on 07/19/2017 6:11 PM Dictated By: ALANA LACEY MD 10 Transcribed By: GEOFFREY on 07/19/171810 COPY TO: MANDI REBOLLAR MD KNEE RIGHT 1-2 VIEWS [place] [address] Patient Name: LAKEISHA GIL MR #: [id number] : 1945 Age/Sex: 71/F Req #: [id number] Adm Physician: MANDI REBOLLAR MD Ordered by: MANDI REBOLLAR MD Report #: [id number] Location: MED/SURG2 Room/Bed: [facility] [place] Procedure: [id number] DX/KNEE RIGHT 1-2 VIEWS Exam Date: 07/19/17 Exam Ti me: 1715 REPORT STATUS: Signed RIGHT KNEE X-RAY - 3 VIEWS HIST ORY: COMPARISON: None available. FINDINGS: Bones: No acute displaced fracture. Osseous alignment is within normal limits. Joints: Moderate tricompartmental degenerative changes. Soft tissues: The soft tissues appear unremarkable. IMPRESSION: No acute radiogra phic abnormality. Signed by: Dr. Alana Lacey M.D. on 07/19/2017 6:12 PM Dictated By: ALANA LACEY MD 11 Transcribed By: GEOFFREY on 07/19 COPY TO: MANDI REBOLLAR MD CHEST SINGLE (PORTABLE) [place] [address] Patient Name: LAKEISHA GIL MR #: [id number] : 1945 Age/Sex: 71/F Req #: [id number] Adm Physician: MANDI REBOLLAR MD Ordered by: MANDI REBOLLAR MD Report #: [id number] Loc ation: MED/SURG2 Room/Bed: [facility] [place] Procedure: [id number] DX/CHEST SINGLE (PORTABLE) Exam Date: 07/19/17 Exam Time: 0955 REPORT STATUS: Signed EXAMINATION: CHEST SINGLE (PORTABLE) INDICATION: COMPARISON: None FINDINGS: AP view Findings: Stable cardiac silhouette, visualized thoracic memo dware, left humeral arthroplasty and neurostimulator leads. Motion artifact wi thout visualized consolidation or pneumothorax. Impression: 1. Lines/Tu bes: Right PICC tip overlies the expected cavoatrial junction. 2. Bilateral ce ntral pulmonary vascular congestion, new since prior exam. Signed by: Dr Karlene Lacey M.D. on 07/19/2017 10:37 AM Dictated By: NEERAJ LACEY MD 1037 COPY TO: MARCOS REBOLLAR MD CHEST X[address] [place], [place] [address] Patient Name: LAKEISHA GIL MR #: [id number] : 1945 Age/Sex: 71/F Req #: [id number] Adm Physician: MANDI REBOLLAR MD Ordered by: MANDI REBOLLAR MD Report #: [id number] Location: MED/SURG2 Room/Bed: [facility] [place] Procedure: [id number] DX/CHEST XRAY LINE PLACEMENT Exam Date: Exam Time: REPORT STATUS: Signed CHEST XRAY LINE PLACEMENT, 07/19/2017 3:38 AM Technique: CHEST XRAY LINE PLACEMENT Comparison: 07/19/2016 Clinical history: PICC line placement advancement Findings: Stable cardiac silhouette, visualized thoracic hardware, left humeral arthroplasty and neurostimulator le ads. Motion artifact without visualized consolidation or pneumothorax. Im pression: 1. Lines/Tubes: Right PICC tip overlies the expected cavoatrial junc tion. 2. No acute abnormality. Signed by: Dr Bonita Castano MD on 07/19/19 4:42 AM Dictated By: BONITA CASTANO MD 1 Transcribed By: GEOFFREY on 07/19/17441 COPY TO: MANDI REBOLLAR MD CHEST XRAY LINE PLACEMENT [place] [address] Patient Name: LAKEISHA GIL MR #: [id number] : 1945 Age/Sex: 71/F Req #: [id number] Adm Physician: MANDI REBOLLAR MD Ordered by: MANDI REBOLLAR MD Report #: [id number] Loc ation: MED/SURG2 Room/Bed: [facility] Procedure: [id number] DX/CHEST XRAY LINE PLACEMENT Exam Date: Exam Time: REPORT STATUS: Signed CHEST XRAY LINE PLACEMENT, 07/18/2017 11:19 PM Technique: CHEST XRAY LINE PLACEMENT Comparison: 10/04/2016 Clinical hist ory: PICC line placement Findings: Stable mildly enlarged cardiac silhoue tte, visualized thoracic rods, left humeral arthroplasty and neurostimulator l dori. No edema or consolidation, pleural effusion or pneumothorax. Impres kane: 1. Lines/Tubes: Right PICC tip overlies the expected central subclavian vein. 2. No acute abnormality. Signed by: Dr Bonita Castano MD on 07/19/19 12:48 AM Dictated By: BONITA CASTANO MD Transcribed By: GEOFFREY on 07/19/1747 COPY TO: MANDI REBOLLAR MD [place] [address] Patient Name: LAKEISHA GIL MR #: [id number] : 1945 Age/Sex: 71/F Req #: [id number] Adm Physician: MANDI RBEOLLAR MD Ordered by: LENNOX GONZALEZ Report #: [id number] Location: [facility] Room/Bed: [place] [address] Procedure: [id number] DX/FOOT LEFT COMPLETE Exam Date: 07/18/17 Juanito means Time: 151 REPORT STATUS: Signed PROCEDURE: X-RAY LEFT FOOT, COMPLE TE COMPARISON: None. INDICATIONS: LEFT HEEL WOUND FINDINGS : 3 views of the left foot PA, lateral, and oblique). Soft tissue def ect over the heel. There are questionable erosive changes of the calcaneus. The bones are diffusely osteopenic. Questionable regional osteopenia the olivier caneus. Small calcaneal heel spur. Degenerative changes at the midfoot. CONCLUSION: Soft tissue defect over the heel. There are findings whi ch are suspicious for osteomyelitis of the calcaneus. Recommend MRI of the hindfoot (with and without contrast) for better evaluation. Dictated by: Lyle Mcmillan M.D. on 07/18/2017 at 16:19 Electronically approved by: Lyle Mcmillan M.D. on 07/18/2017 at 16:19 Dictated By: LYLE MCMILLAN MD 1619 Transcribed By: KELLY on 07/18/17 1619 COPY TO: LENNOX GONZALEZ
--- OUTSIDE RECORDS SUMMARY | 2018-05-07 05:40 | XMS REPORT | Summary of Care ---
Author Author [facility] Organization [facility] Address Unknown Phone Unavailable Encounter SIMONE Kong(KIRK) [id number] Date(s): 05/09/17 - 05/09/17 [facility] [address] [place] [address]- Discharge Disposition: Home or Self Care Attending Physician: eZlda Shea MD Referring Physician: Zelda Shea MD Vital Signs 1 2 3 Most recent to oldest [Reference Range]: 162.56 cm (05/08/17 9:33 AM) Height 97.6 DegF (05/09/17 7:49 AM) Temperature Oral [96.4-99.1 DegF] 156/95 mmHg *HI* (05/09/17 11:15 AM) 158/89 mmHg *HI* (05/09/17 11:08 AM) 112/54 mmHg (05/09/17 7:49 AM) Blood Pressure [90-140/60-90 mmHg] 56 bpm *LOW* (05/09/17 11:15 AM) 55 bpm *LOW* (05/09/17 11:08 AM) 51 bpm *LOW* (05/09/17 7:49 AM) Peripheral Pulse Rate [60-100 bpm] 120.455 kg (05/08/17 9:33 AM) Weight 45.58 m2 (05/08/17 9:33 AM) Body Mass Index Problem List Condition Effective Dates Status Health [...] Active morphine Itching Active Dilaudid Active Medications amitriptyline 100 mg oral tablet 100 mg=1 tab, PO, Bedtime, # 90 tab, 0 Refill(s) Start Date: 05/08/17 Status: Ordered cephalexin 500 mg oral tablet 500 mg=1 tab, PO, TID, # 28 tab, 0 Refill(s) Start Date: 05/08/17 Stop Date: 05/15/17 Status: Ordered furosemide 40 mg oral tablet 40 mg=1 tab, PO, Daily, # 90 tab, 1 Refill(s) Start Date: 05/08/17 Status: Ordered gabapentin 800 mg oral tablet 800 mg=1 tab, PO, TID, # 90 tab, 3 Refill(s) Start Date: 05/08/17 Status: Ordered metoprolol 25 mg oral tablet, extended release 25 mg=1 tab, PO, Bedtime, # 90 tab, 3 Refill(s) Start Date: 05/08/17 Status: Ordered Mirapex 2 mg, PO, TID, 0 Refill(s) Start Date: 05/08/17 Status: Ordered pantoprazole 40 mg oral enteric coated tablet 40 mg=1 tab, PO, Daily, # 90 tab, 1 Refill(s) Start Date: 05/08/17 Status: Ordered Results ELECTROLYTES Most recent to 1 oldest [Reference Range]: Sodium Lvl [135-145 140 mEq/L mEq/L] (05/09/17 7:39 AM) Potassium Lvl 4.4 mEq/L [3.5-5.1 mEq/L] (05/09/17 7:39 AM) Chloride Lvl [95-109 100 mEq/L mEq/L] (05/09/17 7:39 AM) CO2 [24-32 mEq/L] 37 mEq/L *HI* (05/09/17 7:39 AM) AGAP [10.0-20.0 7.4 mEq/L mEq/L] *LOW* (05/09/17 7:39 AM) Immunizations No data available for this section [...]
[2018-05-07 09:30] VITALS: BP 110/80
== END | disposition home or self-care (01) ==
LOC: OR 05:37
PROVIDERS: ATTEND Ophthalmology
DX: H25.12 Age-related nuclear cataract, left eye (principal); I11.0 Hypertensive heart disease with heart failure; I50.9 Heart failure, unspecified; F32.9 Major depressive disorder, single episode, unspecified; G47.33 Obstructive sleep apnea (adult) (pediatric); I73.9 Peripheral vascular disease, unspecified; Z01.810 Encounter for preprocedural cardiovascular examination; Z01.812 Encounter for preprocedural laboratory examination
CPT/HCPCS: 36415; 66984; 80048; 85025; 93005; J0171; J2001 ×2; J2704; V2632

== ENCOUNTER → 2018-06-02 | Outpatient (CLI) | payer MEDICARE, OTHER ==
[~2018-06-02] MED LIST changes: -CHONDR SU A NA/HYALUR SOD 1 EACH KIT IO ONE; -CYCLOPENTOLATE HCL 2% OPTH SOLN 2 ML BTL OP ONE; -EPINEPHRINE HCL INJ 1 MG/ML AMP ONE; -GATIFLOXACIN(OPTH) 5 ML LIQD ONE; +IOPAMIDOL 200 MG/ML 20 ML VIAL IT ONE; -LIDOCAINE 2% /EPINEPHRINE 20 ML SDV INJ ONE; +LIDOCAINE HCL 1% LOCAL INJ 20 ML VIAL ONE; -LIDOCAINE HCL 2% LOCAL INJ 5 ML SDV VIAL INJ ONE; -LIDOCAINE HCL-PF 4% 40 MG/1 ML 5ML AMP ONE; -PHENYLEPHRINE HCL 2 ML DROPS ONE; -PILOCARPINE HCL(OPTH) 15 ML LIQD ONE; -POVIDONE IODINE 5% (OPTH) 30 ML BTL ONE; -PROPOFOL IV EMULSION 10 MG/ML 20 ML VIAL ONE; -TOBRAMYCIN/DEXAMETHASONE(OPTH) 3.5 GM TUBE ONE
[2018-06-02 09:27] LABS: INR 0.92; PROTHROMBIN TIME 13.2 seconds (11.9-14.5)
[2018-06-02 09:28] LABS: PARTIAL THROMBOPLASTIN TIME 28.2 seconds (23.8-35.5)
--- NOTE | 2018-06-02 12:11 | Diagnostic Imaging Report ---
Date and Time: 06/02/2018 Procedure: Lumbar spine myelogram optical effects camera operator: Dr. Glover Assistants: None Pre-operative diagnosis: Low back pain Post-operative diagnosis: Low back pain Conscious Sedation: None Additional Medications: Lidocaine 1% for local anesthesia Fluoroscopy time: 0.5 minutes Frontal Air Kerma: 98.04 mGy Contrast used: 15 cc Isovue 200 Estimated blood loss: Minimal Specimens: None Implants: None DISCUSSION: Informed consent was obtained and documented in the medical record. Preliminary radiographs of the lumbar spine were obtained showing extensive multilevel surgical hardware with intervertebral disc spacer placement and a spinal stimulation device. The patient was placed in the prone position on the fluoroscopic table. The lower back was prepped and draped in the standard sterile fashion. Under fluoroscopic guidance a suitable percutaneous approach to the thecal sac at the level of L5-S1 was identified and the overlying skin was marked. 1% lidocaine was infiltrated into the skin and subcutaneous tissues for local anesthesia. Then under intermittent fluoroscopic guidance, a 22-gauge spinal needle was advanced into the thecal sac with return of clear cerebrospinal fluid. Subsequently, 15 cc of Isovue-200 contrast were injected without complication. The needle was removed and a fluoroscopic spot image was saved. A crosstable lateral radiograph was obtained and the patient was transferred to the CT scanner. FINDINGS: No significant ventral epidural filling defects on crosstable lateral radiograph. IMPRESSION: Successful lumbar spine myelogram under fluoroscopic guidance, with injection of 15 cc of Isovue-200 into the thecal sac for purposes of subsequent lumbar spine CT, separately reported. Signed by: Dr. Devin Glover M.D. on 06/02/2018 12:07 PM
--- NOTE | 2018-06-02 13:20 | Diagnostic Imaging Report ---
CT LUMBAR SPINE W HISTORY: Lumbar spondylosis COMPARISON: Lumbar spine radiographs 06/02/2018 TECHNIQUE: Axial CT images of the lumbar spine were obtained after the administration of intrathecal contrast. Coronal and sagittal reconstructions obtained from the axial data. One or more of the following dose reduction techniques were used: Automated exposure control, adjustment of the mA and/or kV according to patient size, and/or utilization of iterative reconstruction technique. DISCUSSION: Bone demineralization limits evaluation. Extensive posterior fusion changes spanning from at least T10-S1 with laminectomies are present. Subcutaneous stimulator device in the left posterior back is partially visualized; associated lead courses towards the lower thoracic spinal canal. Associated hardware susceptibility artifacts obscure some details. There are 5 nonrib-bearing lumbar vertebral bodies. Lumbar lordosis is preserved. There is no significant scoliosis or subluxation. Mildly displaced bilateral sacral ala fractures are present. Bone demineralization along these fractures is associated with ill-defined soft tissue density within the local marrow. An associated mildly displaced, incompletely healed fracture of the S2 vertebral body is also present (with mild callus formation). Mild to moderate T11 and mild T12 vertebral compression deformities are likely chronic; there is no significant fracture retropulsion. No definite additional fracture or compression deformity is seen. The thecal sac is well opacified. The conus terminates at approximately T12, which is within normal limits. The visualized lower spinal cord and cauda equina are grossly unremarkable. No gross thecal sac filling defects are seen. Diffuse paraspinal muscle atrophy is present. Posterior incision changes are noted. The paravertebral and paraspinal soft tissues are otherwise grossly unremarkable. Multilevel osseous fusion across the disc spaces is present. There are mild degenerative changes in the bilateral sacroiliac joints. T10-T11: No gross canal or foraminal stenosis. T11-T12: The left neural foramen is at least partially obliterated due to posterior disc osteophyte complex/heterotopic ossification. The right neural foramen is obscured by streak artifact. No gross canal stenosis. T12-L1: The right neural foramen is obscured by streak artifact. No gross canal or left foraminal stenosis. L1-L2: At least mild bilateral foraminal stenoses due to posterior disc osteophyte complex and facet arthrosis. No gross canal stenosis. L2-L3: Mild right and mild to moderate left foraminal stenoses due to posterior disc osteophyte complex and facet arthrosis. No gross canal stenosis. L3-L4: At least mild bilateral foraminal stenoses due to posterior disc osteophyte complex and facet arthrosis. No gross canal stenosis. L4-L5: Grade 1 anterolisthesis of L4 on L5. The neural foramina are obscured by streak artifact. No gross canal stenosis. L5-S1: Grade 1 anterolisthesis of L5 on S1. The neural foramina are obscured by streak artifact. No gross canal stenosis. Minimal atelectasis is seen in the lung bases. IMPRESSION: Bone demineralization and streak artifacts limit evaluation. In spite of limitations: 1. Extensive posterior fusion changes spanning from at least T10-S1 with laminectomies. Partially visualized cord stimulator device. 2. Mildly displaced bilateral sacral ala fractures are likely subacute to chronic. Ill-defined soft tissue density within the local marrow may be due to underlying neoplastic process (i.e. pathologic fracture) and/or secondary inflammation/edema. 3. Associated mildly displaced, incompletely healed fracture of the S2 vertebral body. 4. Mild to moderate T11 and mild T12 vertebral compression deformities are likely chronic. No significant retropulsion. 5. Multilevel degenerative foraminal stenoses as described above. No significant canal stenosis. Signed by: Dr. Greg Sweet M.D. on 06/02/2018 1:17 PM
== END ==
LOC: DX 07:56
PROVIDERS: ATTEND Student in an Organized Health Care Education/Training Program
DX: M96.1 Postlaminectomy syndrome, not elsewhere classified (principal); M54.17 Radiculopathy, lumbosacral region; M51.37 Other intervertebral disc degeneration, lumbosacral region; M47.897 Other spondylosis, lumbosacral region
CPT/HCPCS: 36415; 72132; 85610; 85730; Q9967; 62304; J2001

== ENCOUNTER → 2018-06-04 | Day surgery (SDC) | payer MEDICARE, OTHER ==
[~2018-06-04] MED LIST changes: +CHONDR SU A NA/HYALUR SOD 1 EACH KIT IO ONE; +CYCLOPENTOLATE HCL 2% OPTH SOLN 2 ML BTL OP ONE; +EPINEPHRINE HCL INJ 1 MG/ML AMP ONE; +FENTANYL CITRATE/PF 100MCG/2 ML INJ ONE; +GATIFLOXACIN(OPTH) 5 ML LIQD ONE; -IOPAMIDOL 200 MG/ML 20 ML VIAL IT ONE; +LIDOCAINE 2%/ EPINEPHRINE 20ML MDV ONE; -LIDOCAINE HCL 1% LOCAL INJ 20 ML VIAL ONE; +LIDOCAINE HCL-PF 4% 40 MG/1 ML 5ML AMP ONE; +MIDAZOLAM HCL 2 MG/2 ML VIAL ONE; +PILOCARPINE HCL(OPTH) 15 ML LIQD ONE; +POVIDONE IODINE 5% (OPTH) 30 ML BTL ONE; +PROPOFOL IV EMULSION 10 MG/ML 20 ML VIAL ONE; +TOBRAMYCIN/DEXAMETHASONE(OPTH) 3.5 GM TUBE ONE
--- OUTSIDE RECORDS SUMMARY | 2018-06-04 08:53 | XMS REPORT | Clinical Summary ---
Author Author [facility] Address Unknown Phone Unavailable Care Team Providers Care Building Maintenance Supervisor Name Role Phone Sharpless PCP Allergies Comments [...] times daily Open wound left heel . 06/07/2017 docusate sodium (COLACE) Take 1 30 capsule 0 100 MG capsule capsule (100 7 mg total) by mouth 3 (three) times daily as needed for Constipation for up to 10 days. 06/13/2017 acetaminophen-codeine Take 1 tablet 30 [...] Hospital General Internal Medicine - Encounter 06/04/2017 after 06/03/2017 Social History Date Tobacco Use Types Packs/Day [...] Taken Vital Sign Reading 06/04/2017 7:04 AM ALMOND SORTER Blood Pressure 114/55 06/04/2017 7:04 AM ALMOND SORTER Pulse 72 06/04/2017 7:04 AM ALMOND SORTER Temperature 36.4 C (97.6 F) 06/04/2017 7:04 AM ALMOND SORTER Respiratory Rate 16 06/04/2017 7:04 AM ALMOND SORTER Oxygen Saturation 97% - Inhaled Oxygen - Concentration 06/03/2017 8:18 AM ALMOND SORTER Weight 123 kg (271 lb 2.7 oz) 06/03/2017 8:18 AM ALMOND SORTER Height 162.6 cm (5' 4") 06/03/2017 8:18 AM ALMOND SORTER Body Mass Index 46.55 Plan of Treatment Not on file Implants Device Identifier Shelf Expiration Date Model / Serial / Lot Implanted Type Area Manufactur er 10/19/2018 [id number] / / [id number] Matrix Floseal Hemo W/O Ndl 10 Cement/Mono N/A: Spine HEDRICK:BIO [id number] - [id number] ler/Adhesi Thoracic SCI Implanted: Qty: 1 on 05/27/2017 by Gerald Sanchez MD 04/26/2020 [id number] / / [id number] Specify Surescan Mri 2x8 Neuro N/A: Spine MEDTRONIC Implanted: Qty: 1 on 05/27/2017 by Gerald Villarreal MD 05/20/2018 [id number] / [id number] / Intellis Adaptivestim Neuro N/A: Back MEDTRONIC Implanted: Qty: 1 on 06/03/2017 by Gerald Villarreal MD 02/12/2020 [id number] / [id number] / [id number] Kt Ext Neuro 1x8 40cm [id number] - Pain N/A: Spine MEDTRONIC: [id number] Mgmt/Stimu NEUROMODUL Implanted: Qty: 1 on 05/27/2017 by Gerald Paz MD 10/22/2020 [id number] / [id number] / [id number] Kt Ext Neuro 1x8 40cm [id number] - Pain N/A: Spine MEDTRONIC: [id number] Mgmt/Stimu NEUROMODUL Implanted: Qty: 1 on 05/27/2017 by Gerald Paz MD Procedures Comments Procedure Name Priority Date/Time Associated Diagnosis INSERTION,SPINAL CORD 06/03/2017 Chronic pain disorder NEUROSTIMULATOR 9:36 AM ALMOND SORTER Special Needs (C-ARM, MEDTRONIC) after 06/03/2017 Results Not on fileafter 06/03/2017 Insurance Payer Benefit Subscriber ID Type Phone Address Plan / Group MEDICARE MEDICARE A xxxxxxxxxx Medicare B MCR SUPPLEMENT/INDIVIDUAL AETNA xxxxxxxxxx [place]ENIOR [place]MENT [place] Advance Directives For more information, please contact: [facility] [address] [place] [id number] Date Inactivated Comments Code Status Date Activated 05/28/2017 5:28 PM Full Code 05/27/2017 9:11 AM This code status was determined by: Patient
--- OUTSIDE RECORDS SUMMARY | 2018-06-04 08:54 | XMS REPORT | Continuity of Care Document ---
Author Author [facility] Address Unknown Phone Unavailable Problems Problem Status Onset Date Classification Date Reported Comments Source DX: M54.12=RADICULOPATHY, CERVICAL REGIO Active 04/09/2017 [facility] A/Care Joint Replacement Active 10/06/2013 Home [facility] OSTEOARTHROS NOS-SHLDER Active 10/05/2013 Home Health JOINT REPLACED SHOULDER Active 10/04/2013 [facility] HTN Active 10/04/2013 [facility] ESOPHAGEAL REFLUX Active 10/04/2013 [facility] Depression Active 10/04/2013 Home [facility] PERSON LIVING ALONE Active 10/04/2013 Home Health JOINT PAIN-SHLDER Active 10/04/2013 [facility] Acid reflux Active Problem 05/19/2017 [facility] [place] Anxiety Active Problem 05/19/2017 [facility] [place] Back ache Active Problem 05/19/2017 [facility] [place] Chronic pain Active Problem 05/19/2017 [facility] [place] Depression Active Problem 05/19/2017 [facility] [place] Glasses Active Problem 05/19/2017 [facility] [place] Non healing left heel wound Active Problem 05/19/2017 [facility] [place] 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 [facility] [place] Neuropathy Active Problem 05/19/2017 [facility] [place] Numbness<sup>2</sup> Active Problem 05/19/2017 leg [facility] [place] Osteoarthritis Active Problem 05/19/2017 [facility] [place] RLS (<span ID="[id number]">Confirmed</span>) Active Problem 05/19/2017 [facility] [place] Seasonal allergy Active Problem 05/19/2017 [facility] [place] Uses walker Active Problem 05/19/2017 [facility] [place] LT SHOULDER Active [facility] [place] OTH ABN AND INCONCLUSIVE FINDINGS ON DX Active [facility] RADICULOPATHY, CERVICAL REGION Active [facility] Medications Medication Details Route Status Patient Instructions Ordering Provider Order Date Source pantoprazole 40 mg oral enteric coated tablet 40 mg=1 tab, PO, Daily, # 90 tab, 1 Refill(s) Active 05/08/2017 [facility] gabapentin 800 MG Oral Tablet 800 mg=1 tab, PO, TID, # 90 tab, 3 Refill(s) Active 05/08/2017 [facility] amitriptyline 100 mg oral tablet 100 mg=1 tab, PO, Bedtime, # 90 tab, 0 Refill(s) Active 05/08/2017 [facility] Furosemide 40 MG Oral Tablet 40 mg=1 tab, PO, Daily, # 90 tab, 1 Refill(s) Active 05/08/2017 [facility] Mirapex 2 mg, PO, TID, 0 Refill(s) Active 05/08/2017 [facility] cephalexin 500 mg oral tablet 500 mg=1 tab, PO, TID, # 28 tab, 0 Refill(s) Active 05/08/2017 [facility] metoprolol 25 mg oral tablet, extended release 25 mg=1 tab, PO, Bedtime, # 90 tab, 3 Refill(s) Active 05/08/2017 [facility] Lisinopril, 5 MG, Tablet Oral [place] 10/29/2013 [facility] Azithromycin, 1 GM, Packet Oral Claudia 10/27/2013 [facility] Acetaminophen, 500 MG, Tablet Oral Claudia 10/27/2013 [facility] Pramipexole Dihydrochloride, 0.75 MG, Tablet Oral Claudia 10/19/2013 [facility] Furosemide, 20 MG, Tablet Oral Claudia 10/19/2013 [facility] Furosemide, 20 MG, Tablet Oral Claudia 10/12/2013 [facility] ROPINIRole HCl, 0.25 MG, Tablet Oral Claudia 10/06/2013 [facility] Allergies, Adverse Reactions, Alerts Substance Category Reaction Severity Reaction type Status Date Reported Comments Source morphine Assertion Itching Drug allergy Active 09/29/2013 [facility] Morphine Derivatives Datatype(AL1.2)-DA Active 10/06/2013 [facility] clindamycin Assertion Drug allergy Active [facility] methadone Assertion Drug allergy Active [facility] Dilaudid Assertion Drug allergy Active [facility] [place] Immunizations Immunization Date Given Site Status Last Updated Comments Source Results Order Name Results Value Reference Range Date Interpretation Comments Source Ext Artery Single Level Bilat US Ext Artery Single Level Bilat US EXAM: ULTRASOUND BILATERAL LOWER EXTREMITIES SINGLE LEVEL ANKLE BRACHIAL INDEX DATE: 05/16/2017 8:39 AM ASSISTANT PROFESSOR OF EDUCATION INDICATION: - I73.9 Peripheral vascular disease, unspecified. [...] Bradly Carrera MD 05/16/17 09:43 FINAL REPORT [facility] ELECTROLYTES Sodium Lvl 140 meq/L 135 - 145 05/09/2017 [facility] ELECTROLYTES Potassium Lvl 4.4 meq/L 3.5 - 5.1 05/09/2017 [facility] ELECTROLYTES Chloride Lvl 100 meq/L 95 - 109 05/09/2017 [facility] ELECTROLYTES CO2 37 meq/L 24 - 32 05/09/2017 [facility] ELECTROLYTES AGAP 7.4 meq/L 10.0 - 20.0 05/09/2017 [facility] Spine cervical wo contrast MRI Spine cervical wo contrast MRI Patient Name: LAKEISHA GIL : 1945; Age: 71 years y/o Female MR: [id number] Study: Spine cervical wo contrast MRI 05/09/2017 8:54 AM ASSISTANT PROFESSOR OF EDUCATION Ordering Physician: Zelda Shea MD Clinical Indication: [...] level analysis above in the findings. SL: [id number] 05/09/2017 - - Read by: Andre Hartley DO Dictated Date/time: 05/10/17 22:11 Electronically Signed by: Andre Hartley DO 05/10/17 22:22 FINAL REPORT [facility] Spine lumbar 2 or 3 views [...] Interval removal of bone fusion stimulator. SL: [id number] 05/09/2017 - - Read by: Steven Gandara MD Dictated Date/time: 05/09/17 11:49 Electronically Signed by: Steven Gandara MD 05/09/17 11:51 FINAL REPORT [facility] Vital Signs Vital Sign Value Date Comments Source Heart Rate 56 05/09/2017 [facility] Systolic (mm Hg) 156 05/09/2017 [facility] Diastolic (mm Hg) 95 05/09/2017 [facility] Heart Rate 55 05/09/2017 [facility] Systolic (mm Hg) 158 05/09/2017 [facility] Diastolic (mm Hg) 89 05/09/2017 [facility] Heart Rate 51 05/09/2017 [facility] Systolic (mm Hg) 112 05/09/2017 [facility] Diastolic (mm Hg) 54 05/09/2017 [facility] Temperature Oral (F) 97.6 F 05/09/2017 [facility] Weight 120.455 05/08/2017 [facility] BMI Calculated 45.58 05/08/2017 [facility] Height 162.56 cm 05/08/2017 [facility] Encounters Location Location Details Encounter Type Encounter Number Reason For Visit Attending Provider ADM Date DC Date Status Source [place] [address] Outpatient [id number] 10/06/2013 11/12/2013 Active [facility] Outpatient [id number] Zelda Shea 05/09/2017 05/09/2017 [facility] Outpatient [facility] [place] [facility] [id number] Zelda Shea 05/16/2017 05/17/2017 [facility] Procedures Procedure Code Date Perfomer Comments Source 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 [id number] 10/04/2013 [facility] 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 [id number] 10/04/2013 [facility] Carpal tunnel release<sup>1</sup> [id number] 06/23/2008 twice 1997, 2008 [facility] Carpal tunnel release<sup>1</sup> [id number] 06/23/2008 twice 1997, 2008 [facility] Cholecystectomy [id number] 06/23/2003 [facility] Cholecystectomy [id number] 06/23/2003 [facility] Excision of mass of neck 375811248 06/23/1996 [facility] Excision of mass of neck 665296001 06/23/1996 [facility] Breast biopsy and related procedures [id number] 06/23/1988 [facility] Breast biopsy and related procedures [id number] 06/23/1988 [facility] Hysterectomy [id number] 06/23/1985 [facility] Hysterectomy [id number] 06/23/1985 [facility] Cervical spinal fusion [id number] 06/23/1972 [facility] Cervical spinal fusion [id number] [facility] Tonsillectomy [id number] 06/23/1951 [facility] Tonsillectomy [id number] 06/23/1951 [facility] Arthroplasty of shoulder [id number] [facility] Back fusion<sup>2</sup> [id number] 5 surgery 2004, 2012 [facility] Fasciotomy [id number] [facility] Foot joint operations [id number] [facility] Arthroplasty of shoulder [id number] [facility] Back fusion<sup>2</sup> [id number] 5 surgery 2004, 2012 [facility] Fasciotomy [id number] [facility] Foot joint operations [id number] [facility]
[2018-06-04 12:10] VITALS: BP 144/88
== END | disposition home or self-care (01) ==
LOC: OR 08:50
PROVIDERS: ATTEND Ophthalmology
DX: H25.11 Age-related nuclear cataract, right eye (principal); I11.0 Hypertensive heart disease with heart failure; I50.9 Heart failure, unspecified; G47.33 Obstructive sleep apnea (adult) (pediatric); Z88.6 Allergy status to analgesic agent; Z88.1 Allergy status to other antibiotic agents; Z79.82 Long term (current) use of aspirin
CPT/HCPCS: 66984; J0171; J2001; J2250; J2704; V2632

== ENCOUNTER → 2018-11-02 | Outpatient (CLI) | payer MEDICARE, OTHER ==
[~2018-11-02] MED LIST changes: +BENT; +BENTYL PO; -CHONDR SU A NA/HYALUR SOD 1 EACH KIT IO ONE; +COLACE100 MG PO; -CYCLOPENTOLATE HCL 2% OPTH SOLN 2 ML BTL OP ONE; -EPINEPHRINE HCL INJ 1 MG/ML AMP ONE; -FENTANYL CITRATE/PF 100MCG/2 ML INJ ONE; -GATIFLOXACIN(OPTH) 5 ML LIQD ONE; -LIDOCAINE 2%/ EPINEPHRINE 20ML MDV ONE; -LIDOCAINE HCL-PF 4% 40 MG/1 ML 5ML AMP ONE; -MIDAZOLAM HCL 2 MG/2 ML VIAL ONE; +MIRALAX17 GM PO; +MORPHINE SULFAT30 M2 PO; -PILOCARPINE HCL(OPTH) 15 ML LIQD ONE; -POVIDONE IODINE 5% (OPTH) 30 ML BTL ONE; -PROPOFOL IV EMULSION 10 MG/ML 20 ML VIAL ONE; -TOBRAMYCIN/DEXAMETHASONE(OPTH) 3.5 GM TUBE ONE; +XARELTO10 MG PO; +[UNRECOGNIZED DRUG - OTHER] PO; +[UNRECOGNIZED DRUG - OTHER] PO
--- NOTE | 2018-11-02 10:34 | Diagnostic Imaging Report ---
EXAMINATION: CT scan of the left knee without contrast. TECHNIQUE: Spiral CT images of the left knee were obtained. No intravenous contrast was administered. Coronal and sagittal reformatted images were obtained. COMPARISON: Left knee MRI 09/02/2016 CLINICAL HISTORY:Pain, contusion, fracture, 2 weeks of painful left knee DISCUSSION: ABSENCE OF INTRAVENOUS CONTRAST DECREASES SENSITIVITY FOR DETECTION OF FOCAL LESIONS AND VASCULAR PATHOLOGY. Bones: The distal femur, patella, proximal tibia and proximal fibula are intact, without displaced fracture. Joint spaces: Small joint effusion with interval increase in size of Dick's cyst relative to MRI 09/02/2016. Worsening tricompartmental joint space narrowing with interval development of subchondral cystic change along the medial femoral articular surface. Medial and lateral meniscal calcifications. Ligamentous structures are poorly evaluated by CT. Soft tissues: Mild nonspecific subcutaneous edema of the visualized left leg. No subcutaneous gas or discrete drainable fluid collection. IMPRESSION: No acute osseous abnormalities. No acute fracture. Progression of degenerative arthrosis, medial compartment predominant, relative to MRI from August 2016, with small joint effusion and Dick's cyst. Signed by: Dr. Devin Glover M.D. on 11/02/2018 10:31 AM
--- NOTE | 2018-11-02 16:06 | Diagnostic Imaging Report ---
EXAM: Bone mineral density study 11/02/2018 9:42 AM INDICATION: ^PAIN IN LEFT KNEE / FRACTURE COMPARISON: Previous DEXA none. Baseline DEXA none FINDINGS: Evaluation of the left hip and right forearm was performed. The study is technically adequate. The patient's fracture risk is compared to an age-matched control. The patient denies prior surgery/fracture of the hips. The patient indicates prior back surgery and left wrist surgery. LEFT HIP * Femoral neck bone mineral density: 0.531 gm/cm2, T-score is -2.9, Z-score is -1.0. * Total bone mineral density: 0.608 gm/cm2, T-score is -2.7, Z-score is -1.2. RIGHT FOREARM * Total bone mineral density (radius 33%): 0.546 gm/cm2, T-score is -2.4, Z-score is 0.1. IMPRESSION: 1. LEFT HIP: Bone mineralization by WHO Classification is osteoporosis, the fracture risk is high. 2. RIGHT FOREARM: Bone mineralization by WHO Classification is osteopenia, the fracture risk is moderate. <T score: NL = -1 or higher Osteopenia = -1 to -2.5 Osteoporosis = -2.5 or lower Z score: < - 2 concerning for path> Signed by: Dr. Andre Liang M.D. on 11/02/2018 4:03 PM
== END ==
LOC: CT 09:04
PROVIDERS: ATTEND Specialist
DX: M25.562 Pain in left knee (principal); S72.435A Nondisplaced fracture of medial condyle of left femur, initial encounter for closed fracture; S80.02XA Contusion of left knee, initial encounter
CPT/HCPCS: 77080

== ENCOUNTER → 2018-11-03 | Outpatient (CLI) | payer MEDICARE, OTHER | LOC: RAD 09:41 | PROVIDERS: ATTEND Specialist | DX: M25.562 Pain in left knee (principal); S72.435A Nondisplaced fracture of medial condyle of left femur, initial encounter for closed fracture; S80.02XA Contusion of left knee, initial encounter | CPT/HCPCS: 93971 ==

== ENCOUNTER → 2018-11-11 | Day surgery (SDC) | payer MEDICARE, OTHER ==
[2018-10-14 16:29] LABS: BASOPHILS % 0.6 % (0.0-1.0); EOSINOPHILS # (AUTO) 0.2 (0.0-0.4); EOSINOPHILS % 3.4 % (0.0-6.0); HEMATOCRIT 37.7 % (34.2-44.1); HEMOGLOBIN 11.8 g/dL (12.0-16.0); LYMPHOCYTES # (AUTO) 1.7 (1.0-3.2); LYMPHOCYTES % 31.3 % (18.0-39.1); MEAN CORPUSCULAR HEMOGLOBIN 29.9 pg (28-32); MEAN CORPUSCULAR HGB CONC 31.3 g/dL (31-35); MEAN CORPUSCULAR VOLUME 95.4 fL (81-99); MONOCYTES # (AUTO) 0.6 (0.2-0.8); MONOCYTES % 10.9 % (4.4-11.3); NEUTROPHILS # (AUTO) 2.9 (2.1-6.9); NEUTROPHILS % 53.6 % (38.7-80.0); PLATELET COUNT 208 x10e3/uL (140-360); RED BLOOD COUNT 3.95 x10e6/uL (3.6-5.1); RED CELL DISTRIBUTION WIDTH 14.1 % (11.7-14.4)
[~2018-11-11] MED LIST changes: +FENTANYL CITRATE/PF 100MCG/2 ML INJ ONE; +MIDAZOLAM HCL 2 MG/2 ML VIAL ONE; +PROPOFOL IV EMULSION 10 MG/ML 50 ML VIAL ONE
--- OUTSIDE RECORDS SUMMARY | 2018-11-11 09:02 | XMS REPORT | Clinical Summary ---
Author Author [facility] Address Unknown Phone Unavailable Care Team Providers Care Agriculture Sales Account Manager Name Role Phone Sharpless PCP Allergies Comments [...] times daily Open wound left heel . Active Problems Problem Noted Date Back pain 06/03/2017 Chronic pain disorder 05/27/2017 Pre-op testing 05/27/2017 Social History Date Tobacco Use Types Packs/Day Years Used Never Smoker Smokeless Tobacco: Never Used Alcohol Use Drinks/Week oz/Week Comments No Sex Assigned at Date Recorded Not on file Industry Job Start Date Occupation Not on file Not on file Not on file Travel End Travel History Travel Start No recent travel history available. Last Filed Vital Signs Not on file Plan of Treatment Not on file Implants Device Identifier Shelf Expiration Date Model / Serial / Lot Implanted Type Area Manufactur er 10/19/2018 [id number] / / [id number] Matrix Floseal Hemo W/O Ndl 10 Cement/Mono N/A: Spine HEDRICK:BIO [id number] - [id number] ler/Adhesi Thoracic SCI Implanted: Qty: 1 on 05/27/2017 by Gerald Sanchez MD 04/26/2020 [id number] / / [id number] Specify Surescan Mri 2x8 Neuro N/A: Spine [employer]TR[employer] Implanted: Qty: 1 on 05/27/2017 by Gerald Villarreal MD 05/20/2018 [id number] / [id number] / Intellis Adaptivestim Neuro N/A: Back MEDTRON[employer] Implanted: Qty: 1 on 06/03/2017 by Gerald Villarreal MD 02/12/2020 [id number] / [id number] / [id number] Kt Ext Neuro 1x8 40cm [id number] - Pain N/A: Spine MEDTRONIC: [id number] Mgmt/Stimu NEUROMODUL Implanted: Qty: 1 on 05/27/2017 by Gerald Paz MD 10/22/2020 [id number] / [id number] / [id number] Kt Ext Neuro 1x8 40cm [id number] - Pain N/A: Spine MEDTRONIC: [id number] Mgmt/Stimu NEUROMODUL Implanted: Qty: 1 on 05/27/2017 by Gerald Paz MD Results Not on fileafter 11/10/2017 Insurance Payer Benefit Subscriber ID Type Phone Address Plan / Group MEDICARE MEDICARE A xxxxxxxxxx Medicare B MCR SUPPLEMENT/INDIVIDUAL AETNA xxxxxxxxxx [place] Advance Directives For more information, please contact: [address] [phone] Date Inactivated Comments Code Status Date Activated 05/28/2017 5:28 PM Full Code 05/27/2017 9:11 AM This code status was determined by: Patient
--- OUTSIDE RECORDS SUMMARY | 2018-11-11 09:03 | XMS REPORT | Continuity of Care Document ---
Author Author [facility] Interface Address Unknown Phone Unavailable Problems Problem Status Onset Date Classification Date Reported Comments Source DX: M54.12=RADICULOPATHY, CERVICAL REGIO Active 04/09/2017 [place] Cellulitis of left lower leg Active 07/29/2014 Problem 10/31/2017 [facility] A/Care Joint Replacement Active 10/06/2013 [facility] OSTEOARTHROS NOS-SHLDER Active 10/05/2013 [facility] JOINT REPLACED SHOULDER Active 10/04/2013 [facility] HTN Active 10/04/2013 [facility] ESOPHAGEAL REFLUX Active 10/04/2013 [facility] Depression Active 10/04/2013 [facility] PERSON LIVING ALONE Active 10/04/2013 [facility] JOINT PAIN-SHLDER Active 10/04/2013 [facility] Acid reflux [facility] Back ache Active Problem 05/19/2017 [facility] Chronic pain Active Problem 05/19/2017 [facility] Depression Active Problem 05/19/2017 [facility] Glasses Active Problem 05/19/2017 [facility] Non healing left heel wound Active Problem 05/19/2017 [facility] 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 [facility] Neuropathy Active Problem 05/19/2017 [facility] Numbness<sup>2</sup> Active Problem 05/19/2017 leg [facility] Osteoarthritis Active Problem 05/19/2017 [facility] RLS (<span ID="[id number]</span>) Active Problem 05/19/2017 [facility] Seasonal allergy Active Problem 05/19/2017 [facility] Uses walker Active Problem 05/19/2017 [facility] Left shoulder pain Active Problem 10/31/2017 [facility] LT SHOULDER Active [facility] [place] OTH ABN AND INCONCLUSIVE FINDINGS ON DX Active [facility] RADICULOPATHY, CERVICAL REGION Active [facility] Medications Medication Details Route Status Patient Instructions Ordering Provider Order Date Source Collagenase 30 Gm Oint Use As Directed Active [place] 07/21/2017 [facility] Hydrocodone/Apap 7.5MG-325MG 1 Ea Tab Every 6 Hours as needed for Pain Active [place] 07/21/2017 [facility] Ascorbic Acid 500 Mg Tablet, 500 Mg Oral Twice A Day Active [place] 07/21/2017 [facility] Aspirin (Aspirin Ec) 81 Mg Tablet.dr, 81 Mg Oral Every Morning Active [place] 07/21/2017 [facility] Enoxaparin Sodium (Lovenox) 40 Mg/0.4 Ml Inj, 40 Mg Subcutaneously Daily At 1700 Active [place] 07/21/2017 [facility] Ferrous Sulfate 325 Mg Tablet, 325 Mg Oral Twice Daily With Meals Active [place] 07/21/2017 [facility] Furosemide (Lasix) 40 Mg Tablet, 40 Mg Oral Twice A Day Active 07/21/2017 [facility] Multivitamins/Minerals Tab, 1 Oral Daily Active [place] 07/21/2017 [facility] Nystatin (Nyamyc) 15 Gm Powd, 0 Gm Topically Daily Active [place] 07/21/2017 [facility] Ondansetron Hcl/Pf (Ondansetron Hcl 4 Mg/2 Ml Vial) 4 Mg/2 Ml Vial, 4 Mg Intraven Every 4 Hours as needed for Nausea And Vomiting Active [place] 07/21/2017 [facility] Dhcdumvttvlq-Qvsl-Favyqyhz,Iso (Zosyn 3.375 Gm Galaxy Bag) 3.375 Gm/50 Ml Froz.piggy, 3.375 Gm IvPush Every 6 Hours Active [place] 07/21/2017 [facility] Silver (Silvasorb) 480 Ml Gel.er.ml., 1 Ml Topically Use As Directed Active [place] 07/21/2017 [facility] Vancomycin/0.9% Sod Chloride (Vancomycin-0.9% Nacl 1 G/250) 1 Gm/250 Ml Plast..bag, 1 Gm Intraven Every 12 Hours Active [place] 07/21/2017 [facility] Gabapentin Enacarbil (Horizant) 600 Mg Tab.er.24h, Active 07/18/2017 [facility] Silver (Silvasorb) 480 Ml Gel.er.ml., Active 07/18/2017 [facility] pantoprazole 40 mg oral enteric coated tablet 40 mg=1 tab, PO, Daily, # 90 tab, 1 Refill(s) Active 05/08/2017 [facility] gabapentin 800 MG Oral Tablet 800 mg=1 tab, PO, TID, # 90 tab, 3 Refill(s) Active 05/08/2017 [facility] amitriptyline 100 mg oral tablet 100 mg=1 tab, PO, Bedtime, # 90 tab, 0 Refill(s) Active 05/08/2017 [facility] Furosemide 40 MG Oral Tablet 40 mg=1 tab, PO, Daily, # 90 tab, 1 Refill(s) Active 05/08/2017 [facility] Mirapex 2 mg, PO, TID, 0 Refill(s) Active 05/08/2017 [facility] cephalexin 500 mg oral tablet 500 mg=1 tab, PO, TID, # 28 tab, 0 Refill(s) Active 05/08/2017 [facility] metoprolol 25 mg oral tablet, extended release 25 mg=1 tab, PO, Bedtime, # 90 tab, 3 Refill(s) Active 05/08/2017 [facility] Sucralfate (Carafate) 1 Gm/10 Ml Oral.susp, 1 Gm Oral Four Times Daily Active 10/23/2016 [facility] Collagenase Clostridium Hist. (Santyl) 15 Gm Oint...g., 1 Gm Topically Bedtime Active [place] 09/16/2016 [facility] Lactobacillus Acidophilus (Acidophilus-Pectin Capsule) 1 Tab Tab, 1 Tab Oral Twice A Day Active [place] 09/16/2016 [facility] Silver (Silvasorb) 480 Ml Gel.er.ml., 1 Ml Topically Daily Active [place] 09/16/2016 [facility] Acetaminophen 325 Mg/10 Ml Elix, 650 Mg Oral Q4hr Prn for Pain And Fever Active 08/31/2016 [facility] Ciclopirox Olamine (Ciclopirox) 15 Gm Cream..g., 15 Gm Topically Daily Active 08/31/2016 [facility] Doxcycline Monohyde , 100 Mg Oral Twice A Day Active 08/31/2016 [facility] Meloxicam (Mobic) 15 Mg Tablet, 50 Mg Oral Daily Active 08/31/2016 [facility] Acetaminophen 325 Mg Tablet, 650 Mg Oral Every 4 Hours as needed for Pain And Temperature Active [facility]07/12/2016 [facility] Albuterol/Ipratropium Nebulize 3 Ml Inha, 3 Ml Nebullizer Rt Q6h Active [facility]/12/2016 [facility] Collagenase Clostridium Hist. (Santyl) 15 Gm Oint...g., 0 Gm Topically Daily Active [facility] 07/12/2016 [facility] Enoxaparin Sodium (Lovenox) 40 Mg/0.4 Ml Inj, 40 Mg Subcutaneously Daily At 1700 Active [facility]07/12/2016 [facility] Famotidine 20 Mg Tab, 20 Mg Oral Twice Daily Before Meals Active [facility]-07/12/2016 [facility] Ketorolac Tromethamine 30 Mg/Ml Inj, 30 Mg Intraven Every 6 Hours as needed for Pain Active [facility] 07/12/2016 [facility] Nystatin (Nyamyc) 15 Gm Powd, 0 Gm Topically Twice A Day Active [facility] 07/12/2016 [facility] Nystatin 15 Gm Cream..g., 0 Ea Topically Twice A Day Active [facility] 07/12/2016 [facility] Ondansetron Hcl/Pf (Ondansetron Hcl 4 Mg/2 Ml Vial) 4 Mg/2 Ml Vial, 4 Mg Intraven Every 4 Hours as needed for Nausea And Vomiting Active [facility] 07/12/2016 [facility] Cpphatpaodfi-Hfej-Sjcdwevz,Iso (Zosyn 3.375 Gm Galaxy Bag) 3.375 Gm/50 Ml Froz.piggy, 3.375 Gm IvPush Every 8 Hours [facility]2016 [facility] Pramipexole Dihydrochloride (Mirapex) 1 Mg Tab, 1 Mg Oral Three Times A Day Active [facility]07/12/2016 [facility] Sucralfate (Carafate) 1 Gm Tablet, 1 Gm Oral Before Meals And At Bedtime Active [facility]12/2016 [facility] Vancomycin/0.9% Sod Chloride (Vancomycin-0.9% Nacl 1 G/250) 1 Gm/250 Ml Plast..bag, 1 Gm Intraven Every 12 Hours [facility] 07/12/2016 [facility] Furosemide (Lasix) 40 Mg Tablet, 20 Mg Oral Bedtime Active 07/02/2016 [facility] Metolazone 5 Mg Tablet, 2.5 Mg Oral Daily Active 07/01/2016 [facility] Tizanidine Hcl (Zanaflex) 4 Mg Tablet, 4 Mg Oral As Needed Active 07/01/2016 [facility] Ferrous Sulfate 325 Mg Tablet, 65 Mg Oral Daily Active 11/10/2015 [facility] Furosemide (Lasix) 40 Mg Tablet, 40 Mg Oral Daily Active 11/10/2015 [facility] Pramipexole Di-Hcl (Mirapex) 0.5 Mg Tablet, 0.5 Mg Oral Twice A Day Active 11/10/2015 [facility] Ranitidine Hcl (Zantac) 150 Mg Tablet, 150 Mg Oral Twice A Day Active 11/10/2015 [facility] Tramadol Hcl (Ultram 50MG*) 50 Mg Tab, 50 Mg Oral As Needed Active 11/10/2015 [facility] Lac12 225 Gm Btl, 1 Gm Topically Twice A Day Active [place] 08/03/2014 [facility] [id number] 22 Gm Tube, 1 Gm Topically Daily Active [facility] 08/03/2014 [facility] Sulfamethoxazole/Trimethoprim (Bactrim Ds Tablet) 1 Each Tablet, 1 Each Oral Twice A Day Active [place] 08/03/2014 [facility] Pramipexole Di-Hcl (Mirapex) 0.75 Mg Tablet, Active 2014 [facility] Hydrocodone Bit/Acetaminophen ([place] 7.5-325 Tablet) 1 Each Tablet, Active 07/29/2014 [facility] Lisinopril, 5 MG, Tablet Oral [place] 10/29/2013 [facility] Azithromycin, 1 GM, Packet Oral [place] 10/27/2013 [facility] Acetaminophen, 500 MG, Tablet Oral [place] 10/27/2013 [facility] Furosemide, 20 MG, Tablet Oral [place] 10/19/2013 [facility] Pramipexole Dihydrochloride, 0.75 MG, Tablet Oral [place] 10/19/2013 [facility] Furosemide, 20 MG, Tablet Oral [place] 10/12/2013 [facility] ROPINIRole HCl, 0.25 MG, Tablet Oral [place] 10/06/2013 [facility] Amitriptyline Hcl 10 Mg Tablet Daily Active [facility] Bumetanide 1 Mg Tablet Twice A Day Active [facility] Duloxetine Hcl (Cymbalta) 30 Mg Capsule. Twice A Day Active [facility] Gabapentin (Neurontin) 300 Mg Capsule Four Times Daily Active [facility] Metoprolol Tartrate 25 Mg Tablet Bedtime Active [facility] Pantoprazole Sodium (Protonix) 40 Mg Tablet. Daily Active [facility] Pramipexole Dihydrochloride (Mirapex) 1 Mg Tab Three Times A Day Active [facility] Allergies, Adverse Reactions, Alerts Substance Category Reaction Severity Reaction type Status Date Reported Comments Source morphine Assertion Itching Drug allergy Active 09/29/2013 [facility] [place] Morphine Derivatives Datatype(AL1.2)-DA Active 10/06/2013 [facility] Morphine ITCHING Unknown Allergy to Substance Active 08/30/2016 [facility] Clindamycin Unknown Allergy to Substance Active 08/30/2016 [facility] Hydromorphone Unknown Allergy to Substance Active 08/30/2016 [facility] Methadone Respiratory depression Severe Allergy to Substance Active 09/07/2016 [facility] clindamycin Assertion Drug allergy Active [facility] [place] methadone Assertion Drug allergy Active [facility] [place] Dilaudid Assertion Drug allergy Active [facility] Immunizations Immunization Date Given Site Status Last Updated Comments Source Results Order Name Results Value Reference Range Date Interpretation Comments Source Serum or plasma trough vancomycin level at trough (mass/volume) Serum or plasma trough vancomycin level at trough (mass/volume) 14.3 5.0 - 10.0 10/30/2017 [facility] Automated blood basophil count (count/volume) Automated blood basophil count (count/volume) 0.0 0.0 - 0.1 10/30/2017 [facility] Automated blood basophil count as percentage of total leukocytes Automated blood basophil count as percentage of total leukocytes 0.4 0.0 - 1.0 10/30/2017 [facility] Automated blood eosinophil count Automated blood eosinophil count 0.5 0.0 - 0.4 10/30/2017 [facility] Automated blood eosinophil count as percentage of total leukocytes Automated blood eosinophil count as percentage of total leukocytes 8.6 0.0 - 6.0 10/30/2017 [facility] Automated blood hematocrit (volume fraction) Automated blood hematocrit (volume fraction) 34.9 34.2 - 44.1 10/30/2017 [facility] Automated blood lymphocyte count as percentage ot total leukocytes Automated blood lymphocyte count as percentage ot total leukocytes 16.4 18.0 - 39.1 10/30/2017 [facility] Automated blood monocyte count as percentage of total leukocytes Automated blood monocyte count as percentage of total leukocytes 8.2 4.4 - 11.3 10/30/2017 [facility] Automated blood neutrophil count Automated blood neutrophil count 3.7 2.1 - 6.9 10/30/2017 [facility] Automated blood platelet count (count/volume) Automated blood platelet count (count/volume) 376 140 - 360 10/30/2017 [facility] Automated blood segmented neutrophil count as percentage of total leukocytes Automated blood segmented neutrophil count as percentage of total leukocytes 66.0 38.7 - 80.0 10/30/2017 [facility] Automated erythrocyte mean corpuscular hemoglobin (mass per erythrocyte) Automated erythrocyte mean corpuscular hemoglobin (mass per erythrocyte) 28.6 28 - 32 10/30/2017 [facility] Automated erythrocyte mean corpuscular hemoglobin concentration measurement (mass/volume) Automated erythrocyte mean corpuscular hemoglobin concentration measurement (mass/volume) 31.5 31 - 35 10/30/2017 [facility] Automated erythrocyte mean corpuscular volume Automated erythrocyte mean corpuscular volume 90.9 81 - 99 10/30/2017 [facility] Blood erythrocytes automated count (number/volume) Blood erythrocytes automated count (number/volume) 3.84 3.6 - 5.1 10/30/2017 [facility] Blood hemoglobin measurement (moles/volume) Blood hemoglobin measurement (moles/volume) 11.0 12.0 - 16.0 10/30/2017 [facility] Blood leukocytes automated count (number/volume) Blood leukocytes automated count (number/volume) 5.60 4.8 - 10.8 10/30/2017 [facility] Blood lymphocytes count (number/volume) Blood lymphocytes count (number/volume) 0.9 1.0 - 3.2 10/30/2017 [facility] Blood monocytes automated count (number/volume) Blood monocytes automated count (number/volume) 0.5 0.2 - 0.8 10/30/2017 [facility] Estimated glomerular filtration rate (GFR) determination Estimated glomerular filtration rate (GFR) determination null 60 10/30/2017 [facility] Glucose measurement Glucose measurement 102 74 - 118 10/30/2017 [facility] Serum or plasma anion gap Serum or plasma anion gap 11.7 8 - 16 10/30/2017 [facility] Serum or plasma calcium measurement (mass/volume) Serum or plasma calcium measurement (mass/volume) 9.3 8.4 - 10.2 10/30/2017 [facility] Serum or plasma carbon dioxide, total measurement (moles/volume) Serum or plasma carbon dioxide, total measurement (moles/volume) 31 22 - 29 10/30/2017 [facility] Serum or plasma chloride measurement (moles/volume) Serum or plasma chloride measurement (moles/volume) 103 98 - 107 10/30/2017 [facility] Serum or plasma creatinine measurement (mass/volume) Serum or plasma creatinine measurement (mass/volume) 0.72 0.57 - 1.11 10/30/2017 [facility] Serum or plasma magnesium measurement (mass/volume) Serum or plasma magnesium measurement (mass/volume) 1.7 1.3 - 2.1 10/30/2017 [facility] Serum or plasma potassium measurement (moles/volume) Serum or plasma potassium measurement (moles/volume) 3.7 3.5 - 5.1 10/30/2017 [facility] Serum or plasma sodium measurement (moles/volume) Serum or plasma sodium measurement (moles/volume) 142 136 - 145 10/30/2017 [facility] Serum or plasma urea nitrogen measurement (mass/volume) Serum or plasma urea nitrogen measurement (mass/volume) 9 7 - 26 10/30/2017 [facility] Serum or plasma urea nitrogen/creatinine mass ratio Serum or plasma urea nitrogen/creatinine mass ratio 13 6 - 25 10/30/2017 [facility] Red Cell Distribution Width 16.8 11.7 - 14.4 10/30/2017 [facility] IM GRANULOCYTES % 0.4 0.0 - 1.0 10/30/2017 [facility] Absolute Immature Granulocyte (auto 0.02 0 - 0.1 10/30/2017 [facility] Bacteria identification in wound by culture Bacteria identification in wound by culture Organism: GRAM NEGATIVE BACILLUS 10/28/2017 [facility] Capillary blood glucose measurement by glucometer (mass/volume) Capillary blood glucose measurement by glucometer (mass/volume) 93 70 - 120 10/28/2017 [facility] Clostridium difficile A and B toxin assay Clostridium difficile A and B toxin assay NEGATIVE NEGATIVE 10/28/2017 [facility] Erythrocyte sedimentation rate by Westergren method Erythrocyte sedimentation rate by Westergren method 83 0 - 20 10/28/2017 [facility] Automated urine sediment leukocyte count by microscopy (number/high power field) Automated urine sediment leukocyte count by microscopy (number/high power field) null 0 - 5 10/27/2017 [facility] Bacteria detection in urine sediment by light microscopy Bacteria detection in urine sediment by light microscopy MODERATE NONE 10/27/2017 [facility] Epithelial cells detection in urine sediment by light microscopy Epithelial cells detection in urine sediment by light microscopy MODERATE NONE 10/27/2017 [facility] Erythrocytes detection in urine sediment by light microscopy Erythrocytes detection in urine sediment by light microscopy NONE 0 - 5 10/27/2017 [facility] Specific gravity of Urine by Test strip Specific gravity of Urine by Test strip 1.020 1.010 - 1.025 10/27/2017 [facility] Urine clarity Urine clarity SL CLOUDY CLEAR 10/27/2017 [facility] Urine color determination Urine color determination YELLOW YELLOW 10/27/2017 [facility] Urine erythrocytes detection Urine erythrocytes detection NEGATIVE NEGATIVE 10/27/2017 [facility] Urine glucose detection Urine glucose detection NEGATIVE NEGATIVE 10/27/2017 [facility] Urine ketones detection by automated test strip Urine ketones detection by automated test strip TRACE NEGATIVE 10/27/2017 [facility] Urine leukocyte esterase detection by dipstick Urine leukocyte esterase detection by dipstick NEGATIVE NEGATIVE 10/27/2017 [facility] Urine nitrite detection Urine nitrite detection NEGATIVE NEGATIVE 10/27/2017 [facility] Urine pH measurement by automated test strip Urine pH measurement by automated test strip 7 5 - 7 10/27/2017 [facility] Urine protein measurement by test strip (mass/volume) Urine protein measurement by test strip (mass/volume) 1+ NEGATIVE 10/27/2017 [facility] Urine total bilirubin measurement (mass/volume) Urine total bilirubin measurement (mass/volume) NEGATIVE NEGATIVE 10/27/2017 [facility] Urine urobilinogen measurement by test strip (mass/volume) Urine urobilinogen measurement by test strip (mass/volume) 0.2 0.2 - 1 10/27/2017 [facility] Blood culture Blood culture NO GROWTH AFTER 72 HOURS 10/27/2017 [facility] Plasma globulin measurement (mass/volume) Plasma globulin measurement (mass/volume) 5.4 2.3 - 3.5 10/27/2017 [facility] Serum or plasma alanine aminotransferase measurement (enzymatic activity/volume) Serum or plasma alanine aminotransferase measurement (enzymatic activity/volume) 12 0 - 55 10/27/2017 [facility] Serum or plasma albumin measurement (mass/volume) Serum or plasma albumin measurement (mass/volume) 2.9 3.5 - 5.0 10/27/2017 [facility] Serum or plasma albumin/globulin mass ratio Serum or plasma albumin/globulin mass ratio 0.5 0.8 - 2.0 10/27/2017 [facility] Serum or plasma alkaline phosphatase measurement (enzymatic activity/volume) Serum or plasma alkaline phosphatase measurement (enzymatic activity/volume) 108 40 - 150 10/27/2017 [facility] Serum or plasma protein measurement (mass/volume) Serum or plasma protein measurement (mass/volume) 8.3 6.5 - 8.1 10/27/2017 [facility] Serum or plasma total bilirubin measurement (mass/volume) Serum or plasma total bilirubin measurement (mass/volume) 0.4 0.2 - 1.2 10/27/2017 [facility] Lactic Acid Level 15.5 4.5 - 19.8 10/27/2017 [facility] Aspartate Amino Transf (AST/SGOT) 15 5 - 34 10/27/2017 [facility] Stool gastrointestinal hemoglobin detection Stool gastrointestinal hemoglobin detection NEGATIVE NEGATIVE 07/21/2017 [facility] B-Type Natriuretic Peptide 24.5 0 - 100 07/21/2017 [facility] Blood cobalamin (vitamin B12) measurement (mass/volume) Blood cobalamin (vitamin B12) measurement (mass/volume) 327 213 - 816 07/20/2017 [facility] Serum or plasma folate measurement (mass/volume) Serum or plasma folate measurement (mass/volume) 18.8 7.0 - 15.4 07/20/2017 [facility] Serum or plasma iron binding capacity measurement (mass/volume) Serum or plasma iron binding capacity measurement (mass/volume) 311 261 - 478 07/20/2017 [facility] Serum or plasma iron measurement (mass/volume) Serum or plasma iron measurement (mass/volume) 29 50 - 170 07/20/2017 [facility] Serum or plasma iron saturation measurement (mass fraction) Serum or plasma iron saturation measurement (mass fraction) 9 15 - 50 07/20/2017 [facility] Serum or plasma thyrotropin measurement by detection limit <=0.005 miu/l (units/volume) Serum or plasma thyrotropin measurement by detection limit <=0.005 miu/l (units/volume) 0.755 0.350 - 4.940 07/20/2017 [facility] Serum or plasma thyroxine (T4) free measurement (mass/volume) Serum or plasma thyroxine (T4) free measurement (mass/volume) 0.96 0.9 - 1.8 07/20/2017 [facility] Serum or plasma transferrin measurement (mass/volume) Serum or plasma transferrin measurement (mass/volume) 222 180 - 382 07/20/2017 [facility] Hemoglobin A1c Percent 5.4 4.0 - 7.0 07/19/2017 [facility] Serum or plasma C reactive protein measurement (mass/volume) Serum or plasma C reactive protein measurement (mass/volume) 179.7 0.0 - 4.9 07/19/2017 [facility] Serum or plasma cholesterol in HDL measurement (mass/volume) Serum or plasma cholesterol in HDL measurement (mass/volume) 58 40 - 60 07/19/2017 [facility] Serum or plasma cholesterol in LDL measurement (mass/volume) Serum or plasma cholesterol in LDL measurement (mass/volume) 87 60 - 130 07/19/2017 [facility] Serum or plasma cholesterol measurement (mass/volume) Serum or plasma cholesterol measurement (mass/volume) 165 0 - 199 07/19/2017 [facility] Serum or plasma total cholesterol/cholesterol in HDL mass ratio Serum or plasma total cholesterol/cholesterol in HDL mass ratio 2.8 3.0 - 3.6 07/19/2017 [facility] Serum or plasma triglyceride measurement (mass/volume) Serum or plasma triglyceride measurement (mass/volume) 98 0 - 149 07/19/2017 [facility] Activated partial thromboplastin time (aPTT) in platelet poor plasma bycoagulation assay Activated partial thromboplastin time (aPTT) in platelet poor plasma bycoagulation assay 34.3 23.8 - 35.5 07/18/2017 [facility] INR in Platelet poor plasma by Coagulation assay INR in Platelet poor plasma by Coagulation assay 1.08 07/18/2017 [facility] Prothrombin time (PT) in platelet poor plasma by coagulation assay Prothrombin time (PT) in platelet poor plasma by coagulation assay 14.6 11.9 - 14.5 07/18/2017 [facility] Ext Artery Single Level Bilat US Ext Artery Single Level Bilat US EXAM: ULTRASOUND BILATERAL LOWER EXTREMITIES SINGLE LEVEL ANKLE BRACHIAL INDEX DATE: 05/16/2017 8:39 AM ANIMAL CARE SPECIALIST INDICATION: - I73.9 Peripheral vascular disease, unspecified. [...] Bradly Carrera MD 05/16/17 09:43 FINAL REPORT [facility] ELECTROLYTES Sodium Lvl 140 meq/L 135 - 145 05/09/2017 [facility] ELECTROLYTES Potassium Lvl 4.4 meq/L 3.5 - 5.1 05/09/2017 [facility] ELECTROLYTES Chloride Lvl 100 meq/L 95 - 109 05/09/2017 [facility] ELECTROLYTES CO2 37 meq/L 24 - 32 05/09/2017 [facility] ELECTROLYTES AGAP 7.4 meq/L 10.0 - 20.0 05/09/2017 [facility] Spine cervical wo contrast MRI Spine cervical wo contrast MRI Patient Name: LAKEISHA GIL : 1945; Age: 71 years y/o Female MR: [id number] Study: Spine cervical wo contrast MRI 05/09/2017 8:54 AM ANIMAL CARE SPECIALIST Ordering Physician: Zelda Shea MD Clinical Indication: [...] level analysis above in the findings. SL: SROSENISRAEL 05/09/2017 - - Read by: Andre Hartley DO Dictated Date/time: 05/10/17 22:11 Electronically Signed by: Andre Hartley DO 05/10/17 22:22 FINAL REPORT [facility] Spine lumbar 2 or 3 views [...] IMPRESSION: Interval removal of bone fusion stimulator. : [id number] 05/09/2017 - - Read by: Steven Gandara MD Dictated Date/time: 05/09/17 11:49 Electronically Signed by: Steven Gandara MD 05/09/17 11:51 FINAL REPORT [facility] Vital Signs Vital Sign Value Date Comments Source Heart Rate 56 05/09/2017 [facility] Systolic (mm Hg) 156 05/09/2017 [facility] Diastolic (mm Hg) 95 05/09/2017 [facility] Heart Rate 55 05/09/2017 [facility] Systolic (mm Hg) 158 05/09/2017 [facility] Diastolic (mm Hg) 89 05/09/2017 [facility] Heart Rate 51 05/09/2017 [facility] Systolic (mm Hg) 112 05/09/2017 [facility] Diastolic (mm Hg) 54 05/09/2017 [facility] Temperature Oral (F) 97.6 F 05/09/2017 [facility] Weight 120.455 05/08/2017 [facility] BMI Calculated 45.58 05/08/2017 [facility] Height 162.56 cm 05/08/2017 [facility] Encounters Location Location Details Encounter Type Encounter Number Reason For Visit Attending Provider ADM Date DC Date Status Source [place] [address] Outpatient [id number] 10/06/2013 11/12/2013 Active [facility] Outpatient [id number] Zelda Palvadi 05/09/2017 05/09/2017 [facility] [place] [facility] [id number] Zelda Palvadi 05/16/2017 05/17/2017 [facility] Discharged Inpatient [id number] MANDI REBOLLAR MD 07/18/2017 07/21/2017 [facility] Discharged Inpatient [id number] MANDI REBOLLAR MD 10/27/2017 10/30/2017 [facility] Procedures Procedure Code Date Perfomer Comments Source X-ray of chest, single view [id number] 10/27/2017 [facility] Computed tomography, lower extremity; with contrast material(s) [id number] 07/20/2017 [facility] EXCISION OF L FOOT SUBCU/FASCIA, OPEN APPROACH [id number] 07/18/2017 [facility] INSERTION OF INFUSION DEV INTO SUP VENA CAVA, PERC APPROACH [id number] 07/18/2017 [facility] 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 [id number] 10/04/2013 [facility] 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 [id number] 10/04/2013 [facility] Carpal tunnel release<sup>1</sup> [id number] 06/23/2008 twice 1997, 2008 [facility] Carpal tunnel release<sup>1</sup> [id number] 06/23/2008 twice 1997, 2008 [facility] Cholecystectomy [id number] 06/23/2003 [facility] Cholecystectomy [id number] 06/23/2003 [facility] Excision of mass of neck [id number] 06/23/1996 [facility] Excision of mass of neck [id number] 06/23/1996 [facility] Breast biopsy and related procedures [id number] 06/23/1988 [facility] Breast biopsy and related procedures [id number] 06/23/1988 [facility] Hysterectomy [id number] 06/23/1985 [facility] Hysterectomy [id number] 06/23/1985 [facility] Cervical spinal fusion [id number] 06/23/1972 [facility] Cervical spinal fusion [id number] 06/23/1972 [facility] Tonsillectomy [id number] 06/23/1951 [facility] Tonsillectomy [id number] 06/23/1951 [facility] Arthroplasty of shoulder [id number] [facility] Back fusion<sup>2</sup> [id number] 5 surgery 2004, 2012 [facility] Fasciotomy [id number] [facility] Foot joint operations [id number] [facility] Arthroplasty of shoulder 266654316 [facility] Back fusion<sup>2</sup> [id number] 5 surgery 2004, 2012 [facility] Fasciotomy [id number] [facility] Foot joint operations [id number] [facility]
[2018-11-11 12:28] VITALS: BP 128/84
--- NOTE | 2018-11-11 18:24 | Operative Report ---
DATE OF PROCEDURE: 11/11/2018 SURGEON: Humphrey Villareal MD PROCEDURE: Colonoscopy with polypectomy. INDICATIONS FOR COLONOSCOPY: Colorectal cancer screening, lower abdominal pain, constipation. MEDICATION: The patient was done under MAC, please see anesthesiologist's note. PROCEDURE IN DETAIL: With the patient in left lateral decubitus position, flexible fiberoptic Olympus colonoscope was inserted into the rectum with ease and advanced all the way to the cecum. The colon was excessively irritable and spastic and suboptimally visualized. The scope was then withdrawn slowly whatever was visualized, and mucosa overlying the cecum, ascending colon grossly appeared to be within normal limits. One polyp was hot biopsied from the transverse colon. One polyp was hot biopsied from the descending colon. Mucosa overlying the sigmoid and the rectum revealed some patchy mild inflammatory changes and biopsies were obtained. The scope was then retroflexed into the distal rectum and small internal hemorrhoids were noted, none of which was actively bleeding. The scope was then straightened out, it was subsequently withdrawn. The patient tolerated the procedure well. IMPRESSION: 1. Transverse colon polyp, hot biopsied. 2. Descending colon polyp, hot biopsied. 3. Proctosigmoiditis, mild. 4. Internal hemorrhoids, none actively bleeding. PLAN: Follow up histology. Increase MiraLAX to 17 g in a glass of water p.o. b.i.d. and initiate VSL#3 one p.o. daily. Timing of followup colonoscopy if necessary pending pathology report. Humphrey Villareal MD [facility]/MODL /[id number] cc: Ari Heaton DO
== END | disposition home or self-care (01) ==
LOC: OR 08:59
PROVIDERS: ATTEND Internal Medicine Gastroenterology
DX: K59.09 Other constipation (principal); D12.3 Benign neoplasm of transverse colon; K63.89 Other specified diseases of intestine; K64.8 Other hemorrhoids; K29.70 Gastritis, unspecified, without bleeding; K21.9 Gastro-esophageal reflux disease without esophagitis; K20.9 Esophagitis, unspecified; K44.9 Diaphragmatic hernia without obstruction or gangrene; I48.91 Unspecified atrial fibrillation; G47.33 Obstructive sleep apnea (adult) (pediatric); G25.81 Restless legs syndrome; Z01.810 Encounter for preprocedural cardiovascular examination; Z01.812 Encounter for preprocedural laboratory examination; Z88.6 Allergy status to analgesic agent; Z88.1 Allergy status to other antibiotic agents; Z79.02 Long term (current) use of antithrombotics/antiplatelets; Z68.33 Body mass index [BMI] 33.0-33.9, adult
CPT/HCPCS: 36415; 45380; 45384; 85025; 88305; 93005; J2250; J2704; 45378

== ENCOUNTER → 2020-01-03 | Outpatient (CLI) | payer MEDICARE, OTHER ==
[~2020-01-03] MED LIST changes: +ACTONEL35 MG PO; +ASPIR-LOW81 MG PO; +DIGOXIN250 MCG PO; -FENTANYL CITRATE/PF 100MCG/2 ML INJ ONE; -MIDAZOLAM HCL 2 MG/2 ML VIAL ONE; +PROBIOTIC & AC1 EACH PO; -PROPOFOL IV EMULSION 10 MG/ML 50 ML VIAL ONE
--- NOTE | 2020-01-03 12:38 | Diagnostic Imaging Report ---
EXAMINATION: CHEST 2 VIEWS INDICATION: Pre-operative COMPARISON: Chest radiograph 07/19/2017 FINDINGS: LINES/TUBES:None LUNGS:The lungs are moderately inflated. There is perihilar fullness and indistinctness of the pulmonary vasculature. No focal consolidation. PLEURA:No pleural effusion or pneumothorax. MEDIASTINUM:The cardiomediastinal silhouette appears normal in size and shape. BONES/SOFT TISSUES:No acute osseous injury. Unchanged spinal fusion hardware and left shoulder arthroplasty hardware. ABDOMEN:No free air under the diaphragm. IMPRESSION: Central pulmonary vascular congestion. No focal pneumonia. Signed by: Madhav Childers MD on 01/03/2020 12:35 PM
== END ==
LOC: RAD 09:21
PROVIDERS: ATTEND Student in an Organized Health Care Education/Training Program
DX: Z01.818 Encounter for other preprocedural examination (principal); I48.91 Unspecified atrial fibrillation
CPT/HCPCS: 71046

== ENCOUNTER 2020-01-18 05:41 | Observation (INO) | payer MEDICARE, OTHER ==
[~2020-01-18] VITALS: Ht 162.6 cm; Wt 116.1 kg
[~2020-01-18 05:41] MED LIST changes: +MELATONIN3 MG PO; +TYLENOL ES; +VITAMIN D; +VITAMIN D3 COM1 EACH; +VOLTAREN100 GM
[2020-01-18] MEDS ORDERED: CEFAZOLIN SOD 1 GM/NS 50ML 100 ML IV ONE (06:39)
[2020-01-18] MEDS ORDERED: CELECOXIB 200 MG CAP ONE (06:47)
[2020-01-18] MEDS ORDERED: DEXAMETHASONE SOD PHOS 10 MG/1 ML VIAL ONE (06:48)
[2020-01-18] MEDS ORDERED: GABAPENTIN 300 MG CAP ONE (06:48)
[2020-01-18] MEDS ORDERED: BUPIVACAINE 7.5MG/ML /DEXTROSE 82.5MG/ML 2 ML AMP INJ ONE (06:50)
[2020-01-18] MEDS ORDERED: VANCOMYCIN HCL 1,000 MG ONE (07:18)
[2020-01-18] MEDS ORDERED: BACITRACIN 50,000 UNIT VIAL ONE (07:18)
[2020-01-18] MEDS ORDERED: TRANEXAMIC ACID 1,000 MG/10 ML ML ONE (07:19)
[2020-01-18] MEDS ORDERED: SODIUM CHLORIDE 0.9% 500ML 500 ML ONE (07:19)
[2020-01-18] MEDS ORDERED: ROPIVACAINE 246.25 MG, EPINEPHRINE HCL 1:1000 1ML 0.5 MG, CLONIDINE HCL 0.08 MG, KETORO... INJ ONE ×5 (07:30)
[2020-01-18] MEDS ORDERED: SUGAMMADEX SODIUM 200 MG/2 ML VIAL IV ONE ×2 (09:09→09:41)
[2020-01-18] MEDS ORDERED: ACETAMINOPHEN 650 MG SUPP PR PRN (09:30)
[2020-01-18] MEDS ORDERED: KETOROLAC TROMETHAMINE 30 MG/ML VIAL IV PRN (09:30)
[2020-01-18] MEDS ORDERED: ZOLPIDEM TARTRATE 5 MG TAB PO PRN (09:30)
[2020-01-18] MEDS ORDERED: DIPHENHYDRAMINE HCL INJ 50 MG/ML VIAL IV PRN (09:30)
[2020-01-18] MEDS ORDERED: ONDANSETRON HCL INJ 2MG/ML 2ML 2 MG/ML VIAL IV PRN (09:30)
[2020-01-18] MEDS ORDERED: DOCUSATE SODIUM 100 MG CAP PO PRN (09:30)
[2020-01-18] MEDS ORDERED: HYDROCODONE/APAP 5MG-325MG TAB PO PRN (09:30)
[2020-01-18] MEDS ORDERED: FENTANYL CITRATE/PF 100MCG/2 ML INJ ONE (10:09)
--- NOTE | 2020-01-18 10:32 | Operative Report ---
DATE OF PROCEDURE: 01/18/2020 SURGEON: Devin Greene MD HOT DIE PRESS FEEDER: John Viera, certified PA. PREOPERATIVE DIAGNOSIS: Osteoarthritis, right hip. POSTOPERATIVE DIAGNOSIS: Osteoarthritis, right hip. PROCEDURE: Right total hip arthroplasty, * added complexity secondary to BMI greater than 45. INDICATIONS: The patient is a 74-year-old lady with multiple medical issues. She is severely disabled secondary to a number of medical conditions, but also advanced osteoarthritis of her right hip. The findings and options have been extensively discussed with the patient. She would like to proceed with a right total hip replacement. The risks and benefits of the surgery were explained. Realistic expectations were stressed. The added potential for perioperative complications due to her body mass index have been discussed at length. She states she understands and accepts this. She wishes to proceed. DESCRIPTION OF PROCEDURE: The patient was brought to the operating room and placed under general anesthetic. She was not a candidate for a spinal due to previous instrumented lumbar fusion. She was positioned in the left lateral decubitus position. Her right hip was prepped and draped in a sterile manner. She received prophylactic antibiotics and tranexamic acid. A preoperative time-out was performed. A posterior approach was made to the right hip. A somewhat more extensile incision was necessary. Throughout the case, added time and personnel and expertise were necessary due to the patient's large size; this was especially to positioning. Hemostasis was obtained with electrocautery. The deep fascia was incised. A deep self-retaining Charnley retractor was placed. Muscle quality was poor. The posterior hip capsule was carefully exposed. The short external rotators were partially released. Additional hemostasis was obtained with electrocautery. The posterior capsule was released and the hip was dislocated. An oscillating saw was used to resect the femoral head. Complete loss of articular cartilage was noted. Acetabular retractors were placed. Care was taken to preserve the capsule. The labral remnant was excised. The socket was then sequentially reamed to 53 mm. Hemispherical bleeding cancellous bone was encountered. Small subchondral cysts were debrided with a small curved curettes. A Jackie Biomet OsteoTi 54 mm outer diameter socket was then impacted into place. Good fixation was felt to be obtained. Fixation was augmented with a single 25 mm screw placed into the ilium. A highly cross-linked polyethylene liner with a 36 mm inner diameter was then impacted into place. Care was taken to make sure that there was no evidence of soft tissue interposition. Throughout this portion of the case, the hip was thoroughly irrigated with a shower tip pulsatile lavage on several occasions. A portion of a 100 mL premixed pericapsular POLLO injection was placed around the socket. The socket was then packed with a moistly soaked lap sponge. Attention was directed towards the proximal femur. The Jackie Biomet taper lock broaches were impacted. A size 15 stem had good canal fill and rotational stability for trial reduction. A standard 36 mm head provided appropriate soft tissue balancing, stability, and religious of limb length. The trial implants were removed. The hip was thoroughly irrigated using the shower tip pulsatile lavage. The implant was seated. The standard 36 mm head was seated onto the stem after making sure it was clean and dry. A final reduction was performed. The posterior capsule was well preserved and was easily repaired with interrupted #2 Ethibond. The short external rotators were also reapproximated using #2 Ethibond. A 500 mg of vancomycin powder was sprinkled into the wound. The remainder of the pericapsular injection was placed. The deep fascia was closed using interrupted #2 Ethibond. The skin was closed with subcuticular Vicryl and sammie. A sterile Aquacel bandage was applied. Estimated blood loss was 100 mL. At the end of the procedure, all needle and sponge counts were correct. Devin Greene MD DR/GANESH /[id number]
--- NOTE | 2020-01-18 10:46 | Diagnostic Imaging Report ---
EXAMINATION: PELVIS AP 1-2 VIEWS INDICATION: Postoperative COMPARISON: None FINDINGS: AP view of the pelvis demonstrates postoperative findings of right total hip replacement. Alignment is anatomic. No unexpected fracture. Hardware intact. Moderate degenerative changes of the [place] left hip joint. Phleboliths in the pelvis. IMPRESSION: Anatomic alignment status post right total hip replacement. Signed by: Madhav Childers MD on 01/18/2020 10:43 AM
--- NOTE | 2020-01-18 15:30 | NUR ---
received to rm aaox3 no distress noted, updated on poc voiced understanding, dsg to r hip c/d/i, ivf infusing to l fa 20g no ss of infiltration noted, denies pain, foot pumps in place, call light in reach, bed low, locked position, will continue to monitor
[2020-01-18 16:36] VITALS: BP 97/57
[2020-01-18] MEDS: SODIUM CHLORIDE 0.9% 1000ML 1,000 ML IV SCH (16:41)
[2020-01-18] MEDS: CEFAZOLIN SOD 1 GM/NS 50ML 50 ML IV SCH (16:41)
[2020-01-18] MEDS: ASPIRIN 325 MG TAB PO SCH (16:41)
[2020-01-18] MEDS: CELECOXIB 200 MG CAP PO SCH (16:41)
[2020-01-18 16:47] VITALS: BP 97/57
[2020-01-18 20:00] VITALS: BP 94/55
--- NOTE | 2020-01-18 20:00 | NUR ---
PT IN BED, ABDUCTOR PILLOW IN BETWEEN LEGS, RIGHT HIP WITH AQUA SEAL DRESSING INTACT, IV INTACT, VS WNL, CALL LIGHT IN REACH, NO DISTRESS NOTED
[2020-01-18] MEDS: HYDROCODONE/APAP 7.5MG-325MG 1 EA TAB PO PRN (22:25)
[2020-01-19] VITALS: BP 96/51
[2020-01-19] MEDS ORDERED: ACETAMINOPHEN 325 MG TAB ONE (00:19)
[2020-01-19] MEDS: HYDROCODONE/APAP 7.5MG-325MG 1 EA TAB PO PRN ×3 (01:07→09:35)
[2020-01-19 04:00] VITALS: BP 92/55
[2020-01-19 05:36] LABS: HEMATOCRIT 31.6 % (34.2-44.1); HEMOGLOBIN 9.7 g/dL (12.0-16.0)
--- NOTE | 2020-01-19 07:44 | NUR ---
ASSUMED CARE. AAOX3. ACYANOTIC. RESTING IN BED. NO DISTRESS NOTED. CALL LIGHT IN REACH. SIDE RAILS UP X2. BED LOW AND LOCKED.
[2020-01-19 08:00] VITALS: BP 100/57
--- NOTE | 2020-01-19 08:28 | Consultation ---
DATE OF CONSULTATION: REASON FOR CONSULTATION: Postop medical management. HISTORY OF PRESENT ILLNESS: The patient is a 74-year-old lady, status post right hip arthroplasty for end-stage osteoarthritis of the right hip, who complains of moderate right hip pain, but worsening of her neuropathy of her bilateral legs, but denies any chest pain, fever, chills, headache, or shortness of breath or nausea or vomiting on review of systems. PAST MEDICAL HISTORY: Significant for anxiety, hypertension, neuropathy, chronic anemia. MEDICATIONS: See MAR. ALLERGIES: CLINDAMYCIN, DILAUDID, MORPHINE. SOCIAL HISTORY: She is a nonsmoker and nondrinker. Retired, . FAMILY HISTORY: Coronary artery disease, high blood pressure, and CVA. PHYSICAL EXAMINATION: VITAL SIGNS: Temperature 98.6, blood pressure 93/66, pulse 84, sats 98% on room air. GENERAL: No apparent distress, lying in bed. NECK: Supple. CARDIOVASCULAR: Regular rate and rhythm. LUNGS: Clear to auscultation bilaterally. ABDOMEN: Good bowel sounds. Soft, nontender. EXTREMITIES: No clubbing or cyanosis. Right hip with no seepage. NEUROLOGIC: Nonfocal. Moves all extremities x4. ASSESSMENT AND PLAN: 1. Right hip pain. Continue with postoperative care and pain control. 2. Anemia. We will check a CBC. 3. Hypotension. The patient is asymptomatic without any dizziness, so we will hold her blood pressure medicines and monitor. 4. History of atrial fibrillation. We will continue with her digoxin. 5. Anxiety disorder. Continue with her medication. 6. Neuropathy. We will restart her medicines. Please see hospital chart for full details. MD ANISH Pena/GANESH /[id number]
[2020-01-19 08:41] VITALS: BP 100/57
[2020-01-19] MEDS ORDERED: ENOXAPARIN40 MG/0.4 SC (08:57)
[2020-01-19] MEDS ORDERED: DULOXETINE HCL 30 MG DELAYED RELEASE PO SCH (09:00)
[2020-01-19] MEDS ORDERED: PRAMIPEXOLE DIHYDROCHLORIDE 1 MG TAB PO SCH (09:00)
[2020-01-19] MEDS ORDERED: PANTOPRAZOLE SOD 40 MG TABEC PO SCH (09:00)
[2020-01-19] MEDS ORDERED: GABAPENTIN 300 MG CAP PO SCH (09:00)
[2020-01-19] MEDS: SODIUM CHLORIDE 0.9% 1000ML 1,000 ML IV SCH (09:30)
[2020-01-19] MEDS: CELECOXIB 200 MG CAP PO SCH (09:30)
[2020-01-19] MEDS: CEFAZOLIN SOD 1 GM/NS 50ML 50 ML IV SCH ×2 (09:30)
[2020-01-19] MEDS ORDERED: ACETAMINOPHEN 1000 MG/100 ML IV PRN (09:30)
[2020-01-19] MEDS: ASPIRIN 325 MG TAB PO SCH (09:30)
[2020-01-19] MEDS ORDERED: ONDANSETRON HCL 4 MG ORAL DISINTEGRATING TAB PO PRN (10:30)
--- NOTE | 2020-01-19 11:59 | NUR ---
ORDERS FOR ACUTE REHAB CHOICE LETTER SIGNED BY PT AND PLACED ON CHART CLINICALS FAXED TO [facility] INITIATED AND PLACED IN PACKET COVID FORM IN PACKET MOT: [facility] [place] [address], [place] DR LEANNA WASHINGTON [employer] CALL REPORT TO [phone]
[2020-01-19 12:12] VITALS: BP 105/57
--- NOTE | 2020-01-19 14:10 | NUR ---
AAOX3. ACYANOTIC. RESTING IN BED WATCHING TELEVISION. NO DISTRESS NOTED. CALL LIGHT IN REACH. SIDE RAILS UP X2. BED LOW AND LOCKED. REPORT CALLED TO CARMEN Suarez RN AT [facility]. PATIENT PENDING TRANSFER TO ROOM 2001 AT THAT FACILITY.
[2020-01-19] MEDS ORDERED: DIGOXIN 0.25 MG TAB PO SCH (21:00)
--- OUTSIDE RECORDS SUMMARY | 2020-01-21 19:09 | XMS REPORT | Continuity of Care Document ---
Author Author [facility] Organization [employer] Address Unknown Phone Unavailable Care Team Providers Care Cigar Tobacco Rehandler Name Role Phone [employer] Unavailable Un available Problems Problem Status Onset Date Classification Date Reported Comments Source DX: M54.12=RADICULOPATHY, CERVICAL REGIO Active 04/09/2017 [facility] A/Care Joint Replacement Active 10/06/2013 [facility] OSTEOARTHROS NOS-SHLDER Active 10/05/2013 Home [facility] JOINT REPLACED SHOULDER Active 10/04/2013 [facility] HTN Active 0 10/04/2013 [facility] ESOPHAGEAL REFLUX Active 10/04/2013 [facility] Depression Active 10/04/2013 Home Health PERSON LIVING ALONE Active 10/04/2013 Home Health JOINT PAIN-SHLDER Active 10/04/2013 Home [facility] Gastroesophageal reflux disease (disorder) Active Problem 05/19/2017 [facility] OPI D [place] Anxiety (finding) Active Problem 05/19/2017 [facility] [place] Backache (finding) Active Problem 05/19/2017 [facility] [place] Chronic pain (finding) Active Problem 05/19/2017 [facility] [place] Depression - motion (qualifier value) Active Problem [facility] [place] Eye glasses, device (physical object) Active Problem [facility] [place] Heel injury (disorder) Active Problem 05/19/2017 [facility] [place] 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 [facility] [place] Neuropathy (disorder) Active Problem 05/19/2017 [facility] [place] Numbness (finding) Active Problem 05/19/2017 leg [facility] [place] Osteoarthritis (disorder) Acti ve Problem [facility] [place] Restless legs (disorder) Active Problem 05/19/2017 [facility] [place] Seasonal allergy (disorder) Ac tive Problem [facility] [place] Finding of walking aid use (finding) Active Problem [facility] ADRIANA [place] e LT SHOULDER Active [facility] [place] OTH ABN AND INCONCLUSIVE FINDINGS ON DX Active [facility] RADICULOPATHY, CERVICAL REGION Active [facility] Medications Medication Details Route Status Patient Instructions Ordering Provider Order Date Source pantoprazole 40 mg oral enteric coated tablet 40 mg = 1 tab, PO, Daily, # 90 tab, 1 Refill(s) Active 05/08/2017 [facility] gabapentin 800 MG Oral Tablet 800 mg = 1 tab, PO, TID, # 90 tab, 3 Refill(s) Active 05/08/2017 [facility] amitriptyline 100 mg oral tablet 100 mg = 1 tab, PO, Bedtime, # 90 tab, 0 Refill(s) Active 05/08/2017 [facility] Furosemide 40 MG Oral Tablet 4 0 mg = 1 tab, PO, Daily, # 90 tab, 1 Refill(s) Active 05/08/2017 [facility] Mirapex 2 mg, PO, TID, 0 Refil l(s) Active 05/08/2017 [facility] cephalexin 500 mg oral tablet 500 mg = 1 tab, PO, TID, # 28 tab, 0 Refill(s) Active 05/08/2017 [facility] metoprolol 25 mg oral tablet, extended release 25 mg = 1 tab, PO, Bedtime, # 90 tab, 3 Refill(s) Active 05/08/2017 [facility] Lisinopril, 5 MG, Tablet Oral [place] 10/29/2013 [facility] Azithromycin, 1 GM, Packet Oral [place]ia 10/27/2013 [facility] Acetaminophen, 500 MG, Tablet Oral Claudia 10/27/2013 [facility] Pramipexole Dihydrochloride, 0.75 MG, Tablet Oral Claudia 10/19/2013 [facility] Furosemide, 20 MG, Tablet Oral [place]ia 10/19/2013 [facility] Furosemide, 20 MG, Tablet Oral [place]ia 10/12/2013 [facility] ROPINIRole HCl, 0.25 MG, Tablet Oral [place]ia 10/06/2013 [facility] Allergies, Adverse Reactions, Alerts Substance Category Reaction Severity Reaction type Status Date Reported Comments Source morphine Assertion Itching Drug allergy Active 09/29/2013 [facility] [place] Morphine Derivatives Datatype( AL1.2)-DA Active 10/06/2013 Home [facility] clindamycin Assertion Drug allergy Active [facility] [place] methadone Assertion Drug allergy Active [facility] [place] Dilaudid Assertion Drug allergy Active [facility] [place] Immunizations No Data Provided for This Section Results Order Name Results Value Reference Range Date Interpretation Comments Source ELECTROLYTES Sodium Lvl 140 135 - 145 05/09/2017 [facility] ELECTROLYTES Potassium Lvl 4.4 3.5 - 5.1 05/09/2017 [facility] ELECTROLYTES Chloride Lvl 100 95 - 109 05/09/2017 [facility] ELECTROLYTES CO2 37 24 - 32 05/09/2017 [facility] ELECTROLYTES AGAP 7.4 10.0 - 20.0 05/09/2017 [facility] Pathology Reports No Data Provided for This Section Diagnostic Reports Report Value Date Source Ext Artery Single Level Bilat US EXAM: ULTRASOUND BILATERAL LOWER EXTREMITIES SINGLE LEVEL ANKLE BRACHIAL INDEX DATE: 05/16/2017 8:39 AM MORNING NANNY INDICATION: - I73.9 Peripheral vascular disease, unspecified. [...] brachial index. 2. Abnormal right ankle-brachial index o f 0.69 suggestive of peripheral arterial disease. RECOMMENDATION: Formal bilateral lower extremity arterial duplex Doppler ultrasound 05/16/2017 [facility] Spine cervical wo contrast MRI Patient Name: LAKEISHA GIL : 1945; Age: 71 years y/o Female MR: [id number] Study: Spine cervical wo contrast MRI 05/09/2017 8:54 AM MORNING NANNY Ordering Physician: Zelda Shea MD Clinical Indication: [...] stenosis. 2. Limited study due to susceptibility a rtifact at the C5-C6 region posteriorly and the lack of axial images. Central canal stenosis or even mild cord compression cannot be excluded. CT myelogram could be performed to better evaluate this as clinically indicated. See a detailed level by level analysis above in the findings. SL: [id number]-PC 05/09/2017 [facility] Spine lumbar 2 or 3 views DX [place] lumbar 2 or 3 views DX COMPARISON: [...] Interval removal of bone fusion stimulator. SL: [id number] 05/09/2017 [facility] Consultation Notes No Data Provided for This Section Discharge Summaries No Data Provided for This Section History and Physicals No Data Provided for This Section Vital Signs Vital Sign Value Date Comments Source Heart Rate 56 05/09/2017 [facility] Systolic (mm Hg) 156 05/09/2017 [facility] Diastolic (mm Hg) 95 05/09/2017 [facility] Heart Rate 55 05/09/2017 [facility] Systolic (mm Hg) 158 05/09/2017 [facility] Diastolic (mm Hg) 89 05/09/2017 [facility] Heart Rate 51 05/09/2017 [facility] Systolic (mm Hg) 112 05/09/2017 [facility] Diastolic (mm Hg) 54 05/09/2017 [facility] Temperature Oral (F) 97.6 F 05/09/2017 [facility] Weight 120.455 05/08/2017 [facility] BMI Calculated 45.58 05/08/2017 [facility] Height 162.56 cm 05/08/2017 [facility] Encounters Location Location Details Encounter Type Encounter Number Reason For Visit Attending Provider ADM Date DC Date Status Source [place] [address] Outpatient [id number] 10/06/2013 11/12/2013 Discharged [facility] Outpatient [id number] Zelda Shea 05/09/2017 05/09/2017 [facility] [place] Out[facility] Di[facility] Services [id number] 00 Zelda Shea 05/16/2017 05/17/2017 [facility] Procedures Procedure Code Date Perfomer Comments Source Primary reverse polarity total prostheti c replacement of shoulder joint using cement [id number] 10/04/2013 [facility] [place] Carpal tunnel release<sup>1</sup> [id number] 06/23/2008 twice 1997, 2008 [facility] [place] Cholecystectomy [id number] 06/23/2003 [facility] [place] Excision of mass of neck 73549 4000 06/23/1996 [facility] [place] Breast biopsy and related procedures [id number] 06/23/1988 [facility] [place] Hysterectomy [id number] 06/23/1985 [facility] [place] Cervical spinal fusion [id number] 06/23/1972 [facility] [place] Tonsillectomy [id number] 06/23/1951 [facility] [place] Arthroplasty of shoulder [id number] [facility] [place] Back fusion<sup>2</sup> 270945 004 5 surgery 2004, 2012 [facility] [place] Fasciotomy [id number] [facility] [place] [id number] [place] Assessment and Plan No Data Provided for This Section Plan of Care No Data Provided for This Section Social History Social History Date Source Social History TypeResponse Substance Abuse Previous Treatment: None. Sexual Sexually active: No. Exercise Exercise duration: 0. Employment/School Operates hazardous equipment: No. Alcohol Previous treatment: None. Alcohol use interferes with work or home: No. Smoking Status Never smoker; Previous treatment: None; Exposure to Tobacco Smoke None; Cigarette Smoking Last 365 Days No; Reg Sm[facility]ess[facility] [place] Social History TypeResponse Substance Abuse Previous Treatment: None. Sexual Sexually active: No. Exercise Exercise duration: 0. Employment/School Operates hazardous equipment: No. Alcohol Previous treatment: None. Alcohol use interferes with work or home: No. Smoking Status Never smoker; Previous treatment: None; Exposure to Tobacco Smoke None; Cigarette Smoking Last 365 Days No; Reg Smoking Cessation Counseling No 09/29/2013 [facility] Family History No Data Provided for This Section Advance Directives No Data Provided for This Section Functional Status No Data Provided for This Section
--- OUTSIDE RECORDS SUMMARY | 2020-01-21 19:09 | XMS REPORT | Clinical Summary ---
Author Author [facility]U [facility] Address Unknown Phone Unavailable Care Team Providers Care Superior Court Judge Name Role Phone Sharpless PCP Allergies Comments [...] Shelf Expiration Date Model / Serial / L ot Implanted Type Area Manufactur er 10/19/2018 [id number] / / [id number] Matrix Floseal Hemo W/O Ndl 10 Cement/Mono N/A: Spine HEDRICK:BIO [id number] - [id number] ler/Adhesi Thoracic SCI Implanted: Qty: 1 on 05/27/2017 by Gerald Sanchez MD 04/26/2020 [id number] / / [id number] Specify Surescan Mri 2x8 Neuro N/A: Spine MEDTR ONIC Implanted: Qty: 1 on 05/27/2017 by Gerald Villarreal MD 05/20/2018 [id number] / [id number] / [id number] Adaptivestim Neuro N/A: Back MEDTRONI C Implanted: Qty: 1 on 06/03/2017 by Gerald Villarreal MD 02/12/2020 [id number] / [id number] / [id number] Kt Ext Neuro 1x8 40cm [id number] - Pain N/A: Spine [employer]TRONIC: [id number] Mgmt/Stimu NEUROMODUL Implanted: Qty: 1 on 05/27/2017 by Gerald De La Garza MD 10/22/2020 [id number] / [id number] / [id number] Kt Ext Neuro 1x8 40cm [id number] - Pain N/A: Spine [employer]TRONIC: [id number] Mgmt/Stimu NEUROMODUL Implanted: Qty: 1 on 05/27/2017 by Gerald De La Garza MD Results Not on fileafter 01/17/2019 Insurance Payer Benefit Subscriber ID Type Phone Address Plan / Group MEDICARE MEDICARE A xxxxxxxxxx Medicare B MCR SUPPLEMENT/INDIVIDUAL AETNA xxxxxxxxxx [place]ENIOR SUPP[place]MENT [place] Advance Directives For more information, please contact: [address] [address] Date Inactivated Comments Code Status Date Activated 05/28/2017 5:28 PM Full Code 05/27/2017 9:11 AM This code status was determined by: Patient
--- OUTSIDE RECORDS SUMMARY | 2020-01-21 19:10 | XMS REPORT | Continuity of Care Document ---
Author Author [facility] t Organization [facility] Address 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 Name Role Phone DO Wilbur HEATON PCP NENA KNOX Attphys Unavailable Wilbur HEATON Attphys Unavailable PATY MICHEL Attphys Unavailable Tootie DUNAWAY Attphys Unavailable PHIL HAMILTON Attphys Unavailable MANDI REBOLLAR Attphys Unavailable LU GUTHRIE Attphys Unavailable Zelda Shea Attphys NENA KNOX Admphys Unavailable MANDI REBOLLAR Admphys Unavailable UL GUTHRIE Admphys Unavailable Payers Payer Name Policy Type Policy Number Effective Date Expiration Date [facility] [place] [id number] 2012 00:00:00 [facility] [employer] Medicare Supplement Plan [id number] 2012 00:00 :00 [facility] Cdc Review Covid19 [id number] [facility] Problems Condition Name Condition Details Condition Category Status Onset Date Resolution Date Last Treatment Date Treating Clinician Comments Source Chronic pain disorder Chronic pain disorder Disease Active 201 01-01-05 00:00:00 [facility] Pre-op testing Pre-op testing Disease Active 2017-05-27 00:00:00 [facility] DX: M54.12=RADICULOPATHY, CERVICAL REGIO DX: M54.12=RADICULOPATHY, CERVICAL REGIO Active 04/09/2017 [facility] Active 2017-04-09 00:00:00 2017-05-09 07:25:00 Praveen Wade Cellulitis of left lower leg Cellulitis of left lower leg Problem Active 2014-07-29 00:00:00 [facility] A/Care Joint Replacement A/Ca re Joint Replacement Active 10/06/2013 Home Health Diagnosis Active 2013-10-06 06:00:00 2013-11-22 17:25:45 Praveen Wade OSTEOARTHROS NOS-SHLDER OSTE OARTHROS NOS-SHLDER Active 10/05/2013 Home Health Diagnosis Active 2013-10-05 06:00:00 2013-11-22 17:25:45 Praveen Wade JOINT REPLACED SHOULDER JOIN T REPLACED SHOULDER Active 10/04/2013 Home Health Diagnosis Active 2013-10-04 06:00:00 2013-11-22 17:25:45 Praveen Wade HTN HTN Active 10/04/2013 Home Health Diagnosis Active 2013-10-04 06:00:00 2013-11-22 17:25:45 Praveen Wade ESOPHAGEAL REFLUX ESOP HAGEAL REFLUX Active 10/04/2013 Home Health Diagnosis Active 2013-10-04 06:00:00 2013-11-22 17:25:45 Praveen Wade Depression Depr ession Active 10/04/2013 Home Health Diagnosis Active 2013-10-04 06:00:00 2013-11-22 17:25:45 Praveen Wade PERSON LIVING ALONE PERS ON LIVING ALONE Active 10/04/2013 [facility] Health Diagnosis Active 2013-10-04 06:00:00 2013-11-22 17:25:45 Praveen Wade JOINT PAIN-SHLDER JOIN T PAIN-SHLDER Active 10/04/2013 Home Health Diagnosis Active 2013-10-04 06:00:00 2013-11-22 17:25:45 Praveen Wade Left shoulder pain Left shoulder pain Problem Active [facility] 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 [facility] [place] Problem Resolved 2017-05-19 01:59:01 Praveen Wade Gastroesophageal reflux disease (disorder) Gastroesophageal reflux disease (disorder) Active Problem 05/19/2017 [facility] [place] Problem Active 2017-05-19 01:59:01 Praveen Wade Anxiety (finding) Anxi ety (finding) Active Problem 05/19/2017 [facility] [place] Problem Active 2017-05-19 01: 59:01 Praveen Wade Backache (finding) Back ache (finding) Active Problem 05/19/2017 [facility] [place] Problem Active 2017-05-19 01:59:01 Praveen Wade Chronic pain (finding) Artificial Foliage Arranger akhil pain (finding) Active Problem 05/19/2017 [facility] [place] Problem Active 2017-05-19 01:59:01 Praveen Wade Depression - motion (qualifier value) Depression - motion (qualifier value) Active Problem 05/19/2017 [facility] [place] Problem Active 2017-05-19 01:59:01 Praveen Wade Eye glasses, device (physical object) Eye glasses, device (physical object) Active Problem 05/19/2017 [facility] [place] Problem Active 2017-05-19 01:59:01 Praveen Wade Heel injury (disorder) Heel injury (disorder) Active Problem 05/19/2017 [facility] [place] Problem Active 2017-05-19 01:59:01 Praveen Wade Neuropathy (disorder) Neur opathy (disorder) Active Problem 05/19/2017 [facility] [place] Problem Active 2017-05-19 01:59:01 Praveen Wade Numbness (finding) Numb ness (finding) Active Problem 05/19/2017 leg [facility] [place] Problem Active 2017-05-19 01:59:01 Praveen Wade Osteoarthritis (disorder) Oste oarthritis (disorder) Active Problem 05/19/2017 [facility] ADRIANA [place] Problem Active 2017-05-19 01:59:01 Praveen Wade Restless legs (disorder) Rest less legs (disorder) Active Problem 05/19/2017 [facility] OPIJarred [place] Problem Active 2017-05-19 01:59:01 Praveen Wade Seasonal allergy (disorder) Se asonal allergy (disorder) Active Problem 05/19/2017 [facility] OPI[place]arred [place] Problem Active 2017-05-19 01:59:01 Praveen Wade Finding of walking aid use (finding) Finding of walking aid use (finding) Active Problem 05/19/2017 [place] ADRIANA [place] Problem Active 2017-05-19 01:59:01 Memor ial Mauro LT SHOULDER LT S HOULDER Active [facility] [place] Diagnosis Active 2014-02-19 13:28:00 Praveen Wade OTH ABN AND INCONCLUSIVE FINDINGS ON DX OTH ABN AND INCONCLUSIVE FINDINGS ON DX Active [facility] Diagnosis Active 2017-04-14 12:56:00 Praveen Wade RADICULOPATHY, CERVICAL REGION RADICULOPATHY, CERVICAL REGION Active [facility] Diagnosis Active 2017-05-09 07:25 :00 Praveen Wade Allergies, Adverse Reactions, Alerts Allergy Name Allergy Type Status Severity Reaction(s) Onset Date Inacti ve Date Treating Clinician Comments Source morphine DA Active SV 2019-10-12 00:00:00 [facility] clindamycin DA Active SV 2019-10-12 00:00:00 [facility] hydromorphone DA Active SV 2019-10-12 00:00:00 [facility] methadone DA Active SV 2019-10-12 00:00:00 [facility] morphine DA Active SV 2019-07-28 00:00:00 [facility] clindamycin DA Active SV 2019-07-28 00:00:00 [facility] hydromorphone DA Active SV 2019-07-28 00:00:00 [facility] methadone DA Active SV 2019-07-28 00:00:00 [facility] Morphine Allergy to substance Active 2019-07-06 00:00:00 [facility] morphine DA Active SV 2019-05-17 00:00:00 [facility] clindamycin DA Active 2019-05-17 00:00:00 [facility] hydromorphone DA Active SV 2019-05-17 00:00:00 [facility] methadone DA Active SV 2019-05-17 00:00:00 [facility] morphine DA Active SV 2019-04-23 00:00:00 [facility] clindamycin DA Active SV 2019-04-23 00:00:00 [facility] hydromorphone DA Active SV 2019-04-23 00:00:00 [facility] methadone DA Active SV 2019-04-23 00:00:00 [facility] morphine DA Active SV 2018-02-20 00:00:00 [facility] clindamycin DA Active SV 2018-02-20 00:00:00 [facility] hydromorphone DA Active SV 2018-02-20 00:00:00 [facility] methadone DA Active SV 2018-02-20 00:00:00 [facility] hydromorphone DA Active SV 2018-02-10 00:00:00 [facility] morphine DA Active SV 2017-12-30 00:00:00 [facility] clindamycin DA Active SV 2017-12-30 00:00:00 [facility] methadone DA Active SV 2017-12-30 00:00:00 [facility] Clindamycin Propensity to adverse reactions Active Itc carlos, Nausea Only 2017-05-21 00:00:00 [facility] Hydromorphone (Bulk) Propensity to adverse reactions Active Other (See Comments) 2017-05-21 00:00:00 "black out"-no recoll ection of what happened [facility] Methadone Propensity to adverse reactions Active Othe r (See Comments) 2017-05-21 00:00:[address] [facility] Morphine Propensity to adverse reactions Active [facility]ching 2017[facility] Deriv[facility] Morphine Derivatives Active 2013-10-06 00:00:00 [facility] morphine morphine Active 2013-09-29 00:00:00 [facility] clindamycin clindamycin Active [facility] methadone methadone Active [facility] eugen[facility] [place] Dilaudid [facility] Social History Social Habit Start Date Stop Date Quantity Comments Source Sex Assigned At [facility] Social History 2013-09-29 15:44:12 2013-09-29 15:44:12 [facility] Smoking Status Start Date Stop Date Source Never smoker [facility] Medications Ordered Medication Name Filled Medication Name Start Date Stop Da te Current Medication? Ordering Clinician Indication Dosage Frequency Signature (SIG) Comments Components Source Enoxaparin Sodium Enoxaparin Sodium 2020-01-19 08:57:00 Yes 40 Daily [facility] Hydrocodone/Apap 7.5MG-325MG Hydrocodone/Apap 7.5MG-325MG 07-21 14:41:00 2019-07-06 00:00:00 No 1 Every 6 Hours as nee ded for Pain [facility] Collagenase Collagenase 2017-07-21 14:41:00 2018-05-04 00:00:00 No 1 Use As Directed [facility] Ascorbic Acid Ascorbic Acid 2017-07-21 14:41:00 2017-10-28 00:00:00 No 500 Twice A Day [facility] Aspirin (Aspirin Ec) 81 Mg TABLET. Aspirin (Aspirin Ec) 81 Mg TABLET. 2017-07-21 14:41:00 2017-10-28 00:00:00 No 81 Every Morning [facility] Enoxaparin Sodium (Lovenox) 40 Mg/0.4 Ml INJ Enoxapari n Sodium (Lovenox) 40 Mg/0.4 Ml INJ 2017-07-21 14:41:00 2017-10-28 00:00:00 No 40 Daily At 1700 [facility] Ferrous Sulfate Ferrous Sulfate 2017-07-21 14:41:00 2017-10-28 00:00:00 No 325 Twice Daily With Meals [facility] Multivitamins/Minerals Multivitamins/Minerals 2017-07-21 14:41:0 0 2017-10-28 00:00:00 No 1 Daily [facility] Nystatin ([facility]) 15 Gm POWD Nystatin ([facility]) 15 Gm POWD 07-21 14:41:2017-10-28 00:00:00 No 0 Daily [facility] Ondansetron Hcl/Pf (Ondansetron Hcl 4 Mg/2 Ml Vial) 4 Mg/2 Ml VIAL Ondansetron Hcl/Pf (Ondansetron Hcl 4 Mg/2 Ml Vial) 4 Mg/2 Ml VIAL 2017-07-21 14:41:00 2017-10-28 00:00:00 No 4 Every 4 Ho urs as needed for Nausea And Vomiting [facility] Jtxvabawtqnt-Utkv-Dvqfygow,Iso (Zosyn 3. 375 Gm Galaxy Bag) 3.375 Gm/50 Ml FROZ.PIGGY Nmcxvlubtrol-Rues-Uqamrxko,Iso (Zosyn 3. 375 Gm Galaxy Bag) 3.375 Gm/50 Ml FROZ.PIGGY 2017-07-21 14:41:00 2017-10-28 00:00:00 No 3.375 Every 6 Hours [facility] Silver (Silvasorb) 480 Ml GEL.ER.ML. Silver (Silvasorb) 480 Ml GEL.ER.ML. 2017-07-21 14:41:00 2017-10-28 00:00:00 No 1 Use A s Directed [facility] Vancomycin/0.9% Sod Chloride (Vancomycin -0.9% Nacl 1 G/250) 1 Gm/250 Ml PLAST..BAG Vancomycin/0.9% Sod Chloride (Vancomycin -0.9% Nacl 1 G/250) 1 Gm/250 Ml PLAST..BAG 2017-07-21 14:41:00 2017-10-28 00:00:00 No 1 Every 12 Hours [facility] gabapentin (NEURONTIN) 800 MG tablet 2017-05-21 11:39:01 Yes 800mg Q.25D Take 800 mg by mouth 4 (four) times daily. [facility] pramipexole (MIRAPEX) 1 MG tablet 2017-05-21 11:39:01 Yes 2mg Q.25D Take 2 mg by mouth 4 (four) times daily. [facility] DULoxetine (CYMBALTA) 60 MG capsule 2017-05-21 11:39:01 Yes 60mg Q.5D Take 60 mg by mouth 2 (two) times daily. [facility] HYDROcodone-acetaminophen (NORCO 5-325) 5-325 mg per tablet 2017-05-21 11:39:01 Yes 1{tbl} Take 1 tab let by mouth every 6 (six) hours as needed for Pain. [facility] amitriptyline (ELAVIL) 10 MG tablet 2017-05-21 11:39:01 Yes 10mg QD Take 10 mg by mouth nightly. [facility] metoprolol (LOPRESSOR) 25 MG tablet 2017-05-21 11:39:01 Yes 25mg QD Take 25 mg by mouth nightly. [facility] mupirocin (BACTROBAN) 2 % ointment 2017-05-21 11:39:01 Yes Q.5D Apply topically 2 (two) times daily Open wound left heel . [facility] pantoprazole (PROTONIX) 40 MG tablet 2017-05-21 11:39:00 Ye s 40mg QD Take 40 mg by mouth daily. [facility] furosemide (LASIX) 40 MG tablet 2017-05-21 11:39:00 Yes 40mg Q.5D Take 40 mg by mouth 2 (two) times daily. [facility] pantoprazole 40 mg oral enteric coated tablet 2017-05-08 15:32:0 0 Yes 40 mg = 1 tab, PO, Daily, # 90 tab, 1 Refill(s) [facility] gabapentin 800 MG Oral Tablet 2017-05-08 15:31:00 Yes 800 mg = 1 tab, PO, TID, # 90 tab, 3 Refill(s) Heri armando Wade amitriptyline 100 mg oral tablet 2017-05-08 15:31:00 Yes 100 mg = 1 tab, PO, Bedtime, # 90 tab, 0 Refill(s) [facility] Furosemide 40 MG Oral Tablet 2017-05-08 15:31:00 Yes 40 mg = 1 tab, PO, Daily, # 90 tab, 1 Refill(s) [facility] [place] Mirapex 2017-05-08 15:30:00 Yes 2 mg, PO, TI D, 0 Refill(s) Praveen Wade cephalexin 500 mg oral tablet 2017-05-08 15:30:00 Yes 500 mg = 1 tab, PO, TID, # 28 tab, 0 Refill(s) Heri Wade metoprolol 25 mg oral tablet, extended release 2017-05-08 15:30: 00 Yes 25 mg = 1 tab, PO, Bedtime, # 90 tab, 3 Refill(s) Praveen [place] Collagenase Clostridium Hist. (Santyl) 15 Gm OINT...G. Collagenase Clostridium Hist. (Santyl) 15 Gm OINT...G. 2016-09-16 13:24:00 2017-07-18 00:00:00 No 1 Bedtime [facility] Lactobacillus Acidophilus (Acidophilus-Pectin Capsule) 1 Tab TAB Lactobacillus Acidophilus (Acidophilus-Pectin Capsule) 1 Tab TAB 2016-09-16 13:24:00 2016-10-23 00:00:00 No 1 Twice A Day [facility] Silver (Silvasorb) 480 Ml GEL.ER.ML. Silver (Silvasorb) 480 Ml GEL.ER.ML. 2016-09-16 13:24:00 2016-10-23 00:00:00 No 1 Daily [facility] Collagenase Clostridium Hist. (Santyl) 15 Gm OINT...G. Collagenase Clostridium Hist. (Santyl) 15 Gm OINT...G. 2016-07-12 09:56:00 2016-10-23 00:00:00 No 0 Daily [facility] Acetaminophen Acetaminophen 2016-07-12 09:56:00 2016-08-31 00:00:00 No 650 Every 4 Hours as needed for Pain And Temperature [facility] Albuterol/Ipratropium Nebulize Albuterol/Ipratropium Nebuliz e 2016-07-12 09:56:00 2016-08-31 00:00:00 No 3 Rt Q6h [facility] Enoxaparin Sodium (Lovenox) 40 Mg/0.4 Ml INJ Enoxapari n Sodium (Lovenox) 40 Mg/0.4 Ml INJ 2016-07-12 09:56:00 2016-08-31 00:00:00 No 40 Daily At 1700 [facility] Famotidine Famotidine 2016-07-12 09:56:00 2016-08-31 00:00:00 No 20 Twice Daily Before Meals [facility] Ketorolac Tromethamine Ketorolac Tromethamine 2016-07-12 09:56:0 0 2016-08-31 00:00:00 No 30 Every 6 Hours as needed for Ganga n [facility] Nystatin ([facility]) 15 Gm POWD Nystatin ([facility]) 15 Gm POWD 07-12 09:56:00 2016-08-31 00:00:00 No 0 Twice A Day [facility] Nystatin Nystatin 2016-07-12 09:56:00 2016-08-31 00:00:00 No 0 Twice A Day [facility] Ondansetron Hcl/Pf (Ondansetron Hcl 4 Mg/2 Ml Vial) 4 Mg/2 Ml VIAL Ondansetron Hcl/Pf (Ondansetron Hcl 4 Mg/2 Ml Vial) 4 Mg/2 Ml VIAL 2016-07-12 09:56:2016-08-31 00:00:00 No 4 Every 4 Ho urs as needed for Nausea And Vomiting [facility] Lhkandqvzyfb-Qrjn-Lvgmmpzy,Iso (Zosyn 3. 375 Gm Galaxy Bag) 3.375 Gm/50 Ml FROZ.PIGGY Dncpjhjjmkhy-Cczp-Bvshazmn,Iso (Zosyn 3. 375 Gm Galaxy Bag) 3.375 Gm/50 Ml FROZ.PIGGY 2016-07-12 09:56:00 2016-08-31 00:00:00 No 3.375 Every 8 Hours [facility] Pramipexole Dihydrochloride (Mirapex) 1 Mg TAB Pramipe xole Dihydrochloride (Mirapex) 1 Mg TAB 2016-07-12 09:56:00 2016-08-31 00:00:00 No 1 Three Times A Day [facility] Sucralfate (Carafate) 1 Gm TABLET Sucralfate (Carafate) 1 Gm TABLET 2016-07-12 09:56:00 2016-08-31 00:00:00 No 1 Before Meals And At Bedtime [facility] Vancomycin/0.9% Sod Chloride (Vancomycin -0.9% Nacl 1 G/250) 1 Gm/250 Ml PLAST..BAG Vancomycin/0.9% Sod Chloride (Vancomycin -0.9% Nacl 1 G/250) 1 Gm/250 Ml PLAST..BAG 2016-07-12 09:56:00 2016-08-31 00:00:00 No 1 Every 12 Hours [facility] Lac12 Lac12 2014-08-03 13:36:00 2015-11-10 00:00:00 No 1 Twice A Day [facility] [id number] 2014-08-03 13:36:00 2015-11-10 00:00:00 No 1 Daily [facility] Sulfamethoxazole/Trimethoprim (Bactrim Ds Tablet) 1 Ea ch TABLET Sulfamethoxazole/Trimethoprim (Bactrim Ds Tablet) 1 Each TABLET 2014-08-03 13:36:00 2015-11-10 00:00:00 No 1 Twice A Day [facility] Lisinopril, 5 MG, Tablet 2013-10-29 00:00:00 [facility] Acetaminophen, 500 MG, Tablet 2013-10-27 00:00:00 Yane Taylor [facility] Azithromycin, 1 GM, Packet 2013-10-27 00:00:00 2013-10-31 06:00:00 Yane Taylor [facility] guillermo Pramipexole Dihydrochloride, 0.75 MG, Tablet 2013-10-19 00 :00:00 Yane Taylor [facility] gu[facility]ermo Furosemide, 20 MG, Tablet 2013-10-19 00:00:00 [facility] Furosemide, 20 MG, Tablet 2013-10-12 00:00:00 2013-10-19 0 6:00:00 Yane Taylor [facility] guillermo ROPINIRole HCl, 0.25 MG, Tablet 2013-10-06 00:00:00 10-19 06:00:00 No Mark Saleh Bumetanide Bumetanide Yes 1 As Needed [facility] Diclofenac Sodium (Voltaren) 100 Gm GEL..GRAM. Diclofe nac Sodium (Voltaren) 100 Gm GEL..GRAM. Yes [facility] Digoxin Digoxin Yes 250 Bedtime [facility] Docusate Sodium (Colace) 100 Mg CAP Docusate Sodium (Colace) 100 Mg C AP Yes 100 Daily [facility] Duloxetine Hcl (Cymbalta) 30 Mg CAPSULE. Duloxetine Hcl (Cymbalta) 30 Mg CAPSULE. Yes 60 Twice A Day [facility] Gabapentin (Neurontin) 300 Mg CAPSULE Gabapentin (Neurontin) 300 Mg CAPSULE Yes 800 Three Times A Day [facility] Lactobac Cmb #3/Fos/Pantethine (Probiotic & Acidophilu s Cap) 1 Each CAPSULE Lactobac Cmb #3/Fos/Pantethine (Probiotic & Acidophilus Cap) 1 Each CAPSULE Yes 1 Daily [facility] Melatonin Melatonin Yes 10 [facility] Metoprolol Tartrate Metoprolol Tartrate Yes 25 Twice A Day [facility] Pantoprazole Sodium (Protonix) 40 Mg TABLET. Pantopr azole Sodium (Protonix) 40 Mg TABLET. Yes 40 Daily [facility] Pramipexole Dihydrochloride (Mirapex) 1 Mg TAB Pramipe xole Dihydrochloride (Mirapex) 1 Mg TAB Yes 4 Three Times A Day [facility] Tylenol Es Tylenol Es Yes [facility] Vitamin D Vitamin D Yes 1.25 [facility] Aspirin (Aspir-Low) 81 Mg TABLET. Aspirin (Aspir-Low) 81 Mg TA BLET. 2020-01-19 00:00:00 No 81 Daily [facility] Lc Platt 2020-01-11 00:00:00 No Three Times A Day [facility] Mv-Mn/Iron/Folic Acid/Herb 190 (Vitamin D3 Complete Ca plet) 1 Each TABLET Mv- Mn/Iron/Folic Acid/Herb 190 (Vitamin D3 Complete Caplet) 1 Each TABLET 2020-01-11 00:00:00 No 1.25 Weekly [facility] Risedronate Sodium (Actonel) 35 Mg TABLET Risedronate Sodium (Actonel) 35 Mg TABLET 2020-01-11 00:00:00 No 35 [facility] Docusate Sodium (Colace) 100 Mg CAP Docusate Sodium (Colace) 100 Mg CAP 2019-07-06 00:00:00 No 100 Daily [facility] Morphine Sulfate (Morphine Sulfate Er) 30 Mg TABLET.ER Morphine Sulfate (Morphine Sulfate Er) 30 Mg TABLET.ER 2019-07-06 00:00:00 No 15 Daily [facility] Nerve Renew B1 &B12 Nerve Renew B1 &B12 2019-07-06 00:00:00 No 1 Twice A Day [facility] Nerve Repair Nerve Repair 2019-07-06 00:00:00 No 1 Daily [facility] Polyethylene Glycol 3350 (Miralax) 17 Gm POWD.PACK Jonatahn yethylene Glycol 3350 (Miralax) 17 Gm POWD.PACK 2019-07-06 00:00:00 No 1 Daily [facility] Rivaroxaban (Xarelto) 10 Mg TABLET Rivaroxaban (Xarelto) 10 Mg T ABLET 2019-07-06 00:00:00 No [facility] Bent Bent 2018-10-14 00:00:00 No [facility] Amitriptyline Hcl Amitriptyline Hcl 2018-05-04 00:00:00 No 10 Daily [facility] Furosemide (Lasix) 40 Mg TABLET Furosemide (Lasix) 40 Mg TABLET 2017-07-21 00:00:00 No 40 Twice A Day [facility] Gabapentin Enacarbil (Horizant) 600 Mg TAB.ER.24H Yenifer pentin Enacarbil (Horizant) 600 Mg TAB.ER.24H 2017-07-18 00:00:00 No [facility] Silver (Silvasorb) 480 Ml GEL.ER.ML. Silver (Silvasorb) 480 Ml G EL.ER.ML. 2017-07-18 00:00:00 No [facility] Sucralfate (Carafate) 1 Gm/10 Ml ORAL.SUSP Sucralfate (Carafate) 1 Gm/10 Ml ORAL.SUSP 2016-10-23 00:00:00 No 1 Four Times [place] ly [facility] Acetaminophen Acetaminophen 2016-08-31 00:00:00 No 650 Q4hr Prn for Pain And Fever [facility] Ciclopirox Olamine (Ciclopirox) 15 Gm CREAM..G. Ciclop irox Olamine (Ciclopirox) 15 Gm CREAM..G. 2016-08-31 00:00:00 No 15 Daily [facility] Doxcycline Monohyde Doxcycline Monohyde 2016-08-31 00:00:00 No 100 Twice A Day [facility] Meloxicam (Mobic) 15 Mg TABLET Meloxicam (Mobic) 15 Mg TABLET 2016-08-31 00:00:00 No 50 Daily [facility] Furosemide (Lasix) 40 Mg TABLET Furosemide (Lasix) 40 Mg TABLET 2016-07-02 00:00:00 No 20 Bedtime [facility] Metolazone Metolazone 2016-07-01 00:00:00 No 2.5 [place] [facility] Tizanidine Hcl (Zanaflex) 4 Mg TABLET Tizanidine Hcl (Zanaflex) 4 Mg TABLET 2016-07-01 00:00:00 No 4 As Needed [facility] Ferrous Sulfate Ferrous Sulfate 2015-11-10 00:00:00 No 65 Daily [facility] Furosemide (Lasix) 40 Mg TABLET Furosemide (Lasix) 40 Mg TABLET 2015-11-10 00:00:00 No 40 Daily [facility] Pramipexole Di-Hcl (Mirapex) 0.5 Mg TABLET Pramipexole Di-Hcl (Mirapex) 0.5 Mg TABLET 2015-11-10 00:00:00 No .5 Twice A Day [facility] Ranitidine Hcl (Zantac) 150 Mg TABLET Ranitidine Hcl (Zantac) 15 0 Mg TABLET 2015-11-10 00:00:00 No 150 Twice A Day [facility] Tramadol Hcl (Ultram 50MG*) 50 Mg TAB Tramadol Hcl (Ultram 50MG* ) 50 Mg TAB 2015-11-10 00:00:00 No 50 As Needed [facility] Pramipexole Di-Hcl (Mirapex) 0.75 Mg TABLET Pramipexol e Di-Hcl (Mirapex) 0.75 Mg TABLET 2014 00:00:00 No [facility] Hydrocodone Bit/Acetaminophen ([place] 7.5-325 Tablet) 1 Each TABLET Hydrocodone Bit/Acetaminophen ([place] 7.5-325 Tablet) 1 Each TABLET 00:00:00 No [facility] Vital Signs Vital Name Observation Time Observation Value Comments Source Body Temperature 2020-01-19 12:12:00 98.3 [degF] [facility] BMI (Body Mass Index) 2020-01-19 00:44:00 43.9 kg/m2 [facility] Weight 2020-01-18 16:43:00 256 [lb_av] [facility] Heart Rate 2017-05-09 17:15:00 [facility] [place] Systolic (mm Hg) 2017-05-09 17:15:00 Heri rial Mauro Diastolic (mm Hg) 2017-05-09 17:15:00 [facility] orial Mauro Heart Rate 2017-05-09 17:08:00 [facility] Systolic (mm Hg) 2017-05-09 17:08:00 [facility] [place] Diastolic (mm Hg) 2017-05-09 17:08:00 [facility] [place] Heart Rate 2017-05-09 13:49:00 [facility] Systolic (mm Hg) 2017-05-09 13:49:00 [facility] [place] Diastolic (mm Hg) 2017-05-09 13:49:00 [facility] [place] Temperature Oral (F) 2017-05-09 13:49:00 97.6 F [facility] Weight 2017-05-08 15:33:00 [facility] BMI Calculated 2017-05-08 15:33:00 Marco al [facility] Height 2017-05-08 15:33:00 162.56 cm 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 Carpal tunnel release<sup>1</sup> 2008-06-23 06:00:00 [facility] Cholecystectomy 2003-06-23 06:00:00 [facility] Excision of mass of neck 1996-06-23 06:00:00 [facility] [place] Breast biopsy and related procedures 1988-06-23 06:00:00 [facility] Hysterectomy 1985-06-23 06:00:00 [facility] Cervical spinal fusion 1972-06-23 06:00:00 [facility] 1951-06-23 06:00:00 [facility] Arthroplasty of shoulder [facility] [place] Back fusion<sup>2</sup> [facility] Fasciotomy [facility] Foot joint operations [facility] Plan of Care Planned Activity Planned Date Details Comments Source Instructions Dislocation - Hip [facility] Instructions Post Operative Pain [facility] Encounters Start Date/Time End Date/Time Encounter Type Admission Type Attendi [facility] Facility Care Department Encounter ID Source 2020-01-18 09:22:00 2020-01-19 15:18:00 Discharged Inpatient (obs) 3 NENA KNOX [facility] [id number] [facility] 2020-01-03 09:21:00 2020-01-03 09:21:00 Registered Clinic 3 KEYSHAWN HEATON [facility] [id number] [facility] 2019-07-09 05:15:00 2019-07-09 05:15:00 Registered Surgical Day Care [facility] [id number] [facility] 2017-10-27 19:21:00 2017-10-30 19:12:00 [facility]charged [facility] [id number] [facility] 2017-07-18 15:45:00 2017-07-21 20:53:00 Discharged [facility]patient [facility] [id number] [facility] 2017-05-16 08:26:00 2017-05-16 23:59:00 Outpatient Rukhsana Shea i MHOIB MHOIB [id number] 2017-05-09 07:15:00 2017-05-09 12:18:00 Outpatient Rukhsana Shea i MHSE MHSE [id number] Results Test Description Test Time Test Comments Results Result Comments Source Blood hemoglobin measurement (moles/volume) 2020-01-19 05:00 :00 Test Item Hemoglobin (test code = 79729-4) 9.7 12.0-16.0 [facility] fraction[facility]2020-01-19 05:00:00* Test Item Value Reference Range Interpretation Comments Hematocrit (test code = 4544-3) 31.6 34.2-44.1 [facility]-2 [id number] 10:42:00 [facility] [address] [place] [address] Patient Name: LAKEISHA GIL MR #: [id number] : 1945 Age/Sex: 74/F Req #: [id number] Adm Physician: NENA KNOX MD Ordered by: NENA KNOX MD Report #: [id number] Location: [facility] m/Bed: V [facility] Procedure: [id number] DX/PELVIS A P 1-2 VIEWS Exam Date: 01/18/20 Exam Time: 1025 REPORT STATUS: Signed EXAMINATION: PELVIS AP 1-2 VIEWS INDICATION: Postoperative COMPARISON: None FINDINGS: AP view of the pelvis demonstrates postoperative findings of right total hip replacement. Alignment is anatomic. No unexpected fracture. Hardware intact. Moderate degenerative changes of the platinum left hip joint. Phleboliths in the pelvis. IMPRESSION: Anatomic alignment status post right total hip replacement. Signed by: Jamel Pike MD on 01/18/2020 10:43 A M Dictated By: JAMEL PIKE MD 104 Transcribed By: GEOFFREY on 01/18/201042 COPY TO: NENA KNOX MD Fluoroscopic procedure less than one hour [id number] 09:35:00* Test Item Value Reference Range Interpretation Comments Coronavirus (PCR) (test code = Coronavirus (PCR)) NOT DETECTED NOTD ETECTED [employer] Aptima SARS-CoV-2 assay is a nucleic amplification test intended for the qualitative detection of RNA from SARS-CoV-2 from nasopharyngeal ([employer]ARIAN) specimens . It is used under Emergency Use Authorization (EUA) by FDA.A positive result is indicative of the presence of SARS-CoV-2 RNA. Clinical correlation with patient history and other diagnostic information is necessary to determine patient infe ction status.A negative (Not Detected) result does not preclude SARS-CoV-2 infec tion. Clinical Correlation with patient history and other diagnostic information should be used in patient management decisions.Invalid: Unable to generate a va lid result on this specimen. Please submit a new specimen for reprat testing oc clinically indicated.Tesing performed by:[facility] [address] [place] [address] [id number], Nick Echevarria MD, PhD [facility] 2 [id number] 12:34:00 [facility] [address] [place], [place] [address] Patient Name: LAKEISHA GIL MR #: [id number] : 1945 Age/Sex: 74/F Req #: [id number] Adm Physician: Ordered by: KEYSHAWN HEATON DO Report #: [id number] Location: [facility]/Bed: Procedure: [id number] DX/CHEST 2 VIEWS Exam Date: 01/03/20 Exam Time: 1026 REPORT STATUS: Signed EXAMINATION: CHES T 2 VIEWS INDICATION: Pre-operative COMPARISON: Chest radiograph FINDINGS: LINES/TUBES:None LUNGS:The lungs are mode rately inflated. There is perihilar fullness and indistinctness of the pulmona ry vasculature. No focal consolidation. PLEURA:No pleural effusion or pneum othorax. MEDIASTINUM:The cardiomediastinal silhouette appears normal in siz e and shape. BONES/SOFT TISSUES:No acute osseous injury. Unchanged spinal f usion hardware and left shoulder arthroplasty hardware. ABDOMEN:No free a ir under the diaphragm. IMPRESSION: Central pulmonary vascular conges tion. No focal pneumonia. Signed by: Jamel Pike MD on 01/03/2020 12:35 PM Dictated By: JAMEL PIKE MD 1235 COPY TO: Sarita HEATON DO - XR HIP W/PEL UNI 2+V [id number] 04:40:00 FAX: Tari Elaine [phone] [place]: St: REG FAX: Keyshawn Knowles DO [phone] Name: LAKEISHA GIL [facility] : 1945 Age/S: 74/F [address] Unit #: [id number] Loc: [place] [address] Phys: Tari Macias MD Acct: [id number] Dis Date: Status: REG ER PHONE #: [phone] Exam Date: 11/13/2019 0409 FAX #: [phone] Reason: pain s/p fall EXAMS: CPT CODE: [id number] XR HIP W/PEL UNI 2+[place] [id number] EXAM: - XR HIP W/PEL UNI 2+V RT HISTORY: Fall, pa in. COMPARISON: July 28, 2019. FINDINGS: AP and frog-leg lateral view of the right hip is provided. There is no def inite evidence of acute fracture or dislocation. Chronic degenerative elsa nges are present in right hip. Metallic hardware is present in lumbosacr al spine. Limited exam due to large body habitus. IMPRESSI ON: No definite evidence of acute fracture. Chronic changes are present. Limited exam. at 0440 Reported and signed by: Celestine Pedersen MD CC: Tari Macias MD; Keyshawn Heaton Technologist: Enzo Griffin RT(R); JAIME TYSON RT(R) Trnscrd Date/Time/By: 11/13/2019 (0440) : By: [email or web address] Orig Print D/T: S: 11/13/2019 (3862) PAGE 1 Signed Report BASIC METABOLIC [id number] 03:31:00* Test Item Value Reference Range Interpretation Comments SODIUM (test code = NA) 138 mmol/L 136-145 N POTASSIUM (test code = K) 5.0 mmol/L 3.5-5.1 N CHLORIDE (test code = CL) 105.0 mmol/L 98-107 N CARBON DIOXIDE (test code = CO2) 25.0 mmol/L 21-32 N ANION GAP (test code = GAP) 13.0 10-20 N GLUCOSE (test code = GLU) 80 mg/dL 74-106 N BLOOD UREA NITROGEN (test code = BUN) 21 mg/dL 7-18 H GLOMERULAR FILTRATION RATE (test code = GFR) > 60 mL/min >=60 Estimated GFR by using Modified MDRD formula.Chronic kidney disease is defined as either kidney damageor GFR <60 mL/min/1.73 m2 for >3 months. CREATININE (test code = CREAT) 0.60 mg/dL 0.55-1.02 N Note change in reference range due to change in reagent. BUN/CREATININE RATIO (test code = BUN/CREA) 35.0 10-20 H CALCIUM (test code = CA) 8.7 mg/dL 8.5-10.1 N [id number] 03:31:00* Test Item Value Reference Range Interpretation Comments MAGNESIUM (test code = MAG) 2.4 mg/dL 1.8-2.4 N [id number] 03:31:00* Test Item Value Reference Range Interpretation Comments TROPONIN-I (test code = TROPI) <0.015 ng/mL 0-0.045 N [id number] 03:31:00* Test Item Value Reference Range Interpretation Comments ALCOHOL (test code = ALC) < 3 mg/dL 0.0-3.0 N -- INTERPRETIVE DATA NOTE: POSITIVE SCREENING RESULTS SHOULD BE CONSIDERED PRESUMPTIVE.WHEN COLLECTED FOR MEDICAL PURPOSES ONLY. SPECIMEN WILL NOTBE COLLECTED BY CHAIN OF CUSTODY.IF A CONFIRMATION OF POSITIVE RESULTS IS DESIRED, ACONFIRMATION TEST MUST BE REQUESTED BY THE PHYSICIAN AT ANADDITIONAL CHARGE TO THE PATIENT. PROTHROMBIN [id number] 03:31:00* Test Item Value Reference Range Interpretation Comments PROTHROMBIN TIME PATIENT (test code = PTP) 12.4 seconds 9.0-14.0 N INTERNATIONAL NORMAL RATIO (test code = INR) 1.1 0.8-1.2 N The therapeutic range for oral anticoagulant therapy formost indications is an international normalized ratio (INR)of between 2.0 and 3.0. The recommended therapeutic INRrange for various clinical situations is listed below: Clinical Situation INR range Pulmonary e mbolism treatment (2.0-3.0)Venous thrombosis treatmentVenous thrombosis prophylaxis (high risk surgery)Prevention of systemic embolism from: Acute myocardial infarction Valvular heart disease Atrial fibrillation Mechanical prosthetic heart valves (2.5-3.5) IS PATIENT ON ANTICOAGULANTS? NTHROMBOPLASTIN TIME [id number] 03:31:00* Test Item Value Reference Range Interpretation Comments THROMBOPLASTIN TIME PARTIAL (test code = PTT) 33.1 seconds 23.0-37. 0 N IS PATIENT ON ANTICOAGULANTS? N- XR CHEST 1 [id number] 03:31:00 FAX: Tari Elaine [phone] [place]: B St: [facility] FAX: Keyshawn Knowles DO [phone] Name: LAKEISHA GIL [facility] : 1945 Age/S: 74/F [address] Unit #: [id number] Loc: [place] [address] Phys: Tari Macias MD Acct: [id number] Dis Date: Status: REG ER PHONE #: [phone] Exam Date: 11/13/2019255 FAX #: [phone] Reason: WEAKNESS EXAMS: CPT CODE: [id number] XR CHEST 1 V 36698 - XR CHEST 1 V, 11/13/2019 2:19 AM Reason For Exam ination: WEAKNESS Comparison: October 12, 2019 Locatio n: R16 Findings LUNGS: No definite pulmonar y edema or consolidation, although exam findings limited by low lung volum es PLEURA: No pleural effusions CARDIOMEDIA STINAL S[place]ETTE Unremarkable A left shoulder arthroplast y is partially visualized postsurgical changes of the thoracic spine and l ikely stimulating device also seen. IMPRESSION: No plain film evidence of acute cardiopulmonary abnormality within the g iven limitations above at 0331 Reported and signed by: Estrella Ching M.D. CC : Tari Macias MD; Keyshawn Heaton DO Technologist: Enzo arnold RT(R) Trnscrd Date/Time/By: 11/13/2019 (033) : By: [email or web address] Orig Print D/T: S: 11/13/2019 (0332) PAGE 1 Signed Report CBC W/O [id number] 03:29:00* Test Item Value Reference Range Interpretation Comments WHITE BLOOD CELL (test code = WBC) 6.6 K/mm3 4.5-12.5 N RED BLOOD CELL (test code = RBC) 4.23 mill/mm3 3.7-5.2 N HEMOGLOBIN (test code = HGB) 12.5 gram/dL 11.5-15.5 N HEMATOCRIT (test code = HCT) 40.2 % 36.0-46.0 N MEAN CELL VOLUME (test code = MCV) 95.0 fL 80-98 N MEAN CELL HGB (test code = MCH) 29.6 picogram 27.0-33.0 N MEAN CELL HGB CONCETRATION (test code = MCHC) 31.1 gram/dL 33.0-36. 0 L RED CELL DISTRIBUTION WIDTH (test code = RDW) 14.2 % 11.6-16. 2 N PLATELET COUNT (test code = PLT) 228 K/mm3 150-450 N MEAN PLATELET VOLUME (test code = MPV) 10.5 fL 6.7-11.0 N CBC W/O [id number] 03:23:00* Test Item Value Reference Range Interpretation Comments WHITE BLOOD CELL (test code = WBC) K/mm3 4.5-12.5 RED BLOOD CELL (test code = RBC) mill/mm3 3.7-5.2 HEMOGLOBIN (test code = HGB) 12.5 gram/dL 11.5-15.5 N HEMATOCRIT (test code = HCT) 40.2 % 36.0-46.0 N MEAN CELL VOLUME (test code = MCV) fL 80-98 MEAN CELL HGB (test code = MCH) picogram 27.0-33.0 MEAN CELL HGB CONCETRATION (test code = MCHC) gram/dL 33.0-36. 0 RED CELL DISTRIBUTION WIDTH (test code = RDW) % 11.6-16. 2 PLATELET COUNT (test code = PLT) K/mm3 150-450 MEAN PLATELET VOLUME (test code = MPV) fL 6.7-11.0 BASIC METABOLIC [id number] 03:20:00* Test Item Value Reference Range Interpretation Comments SODIUM (test code = NA) 138 mmol/L 136-145 N POTASSIUM (test code = K) 5.0 mmol/L 3.5-5.1 N CHLORIDE (test code = CL) 105.0 mmol/L 98-107 N CARBON DIOXIDE (test code = CO2) mmol/L 21-32 ANION GAP (test code = GAP) 10-20 GLUCOSE (test code = GLU) mg/dL 74-106 BLOOD UREA NITROGEN (test code = BUN) mg/dL 7-18 GLOMERULAR FILTRATION RATE (test code = GFR) mL/min >=60 CREATININE (test code = CREAT) mg/dL 0.55-1.02 BUN/CREATININE RATIO (test code = BUN/CREA) 10-20 CALCIUM (test code = CA) mg/dL 8.5-10.1 [id number] 03:20:00* Test Item Value Reference Range Interpretation Comments MAGNESIUM (test code = MAG) mg/dL 1.8-2.4 [id number] 03:20:00* Test Item Value Reference Range Interpretation Comments TROPONIN-I (test code = TROPI) ng/mL 0-0.045 [id number] 03:20:00* Test Item Value Reference Range Interpretation Comments ALCOHOL (test code = ALC) mg/dL 0-3 - CT C-SPINE W/O [id number] 03:17:00 Name: LAKEISHA GIL [facility] : 1945 Age/S: 74 / F [address] [facility] Unit #: [id number] Loc: [place] [address] Phys: Tari Macias MD Acct: [id number] Dis Date: Status: REG ER PHONE #: [phone] Exam Date: 11/13/2019252 FAX #: [phone] Reason: fall, head injury, neck pain EXAMS: CPT CODE: [id number] CT C-SPINE W/O CONTRAST 82381 EXAM: - CT C-SPINE W/O CONTRAST HISTORY: Fall. TECHNIQUE: Axial tomograms through the cervical spine were obtained without intravenous contrast. Sagittal and coronal reformatted images are provided. This exam was performed according to our departmental dose-optimization program, which includes automated exposure control, adjustment of the mA and/or kV according to patient size and/or use of iterative reconstruction technique. COMPARISON: July 28, 2019. FINDINGS: Vertebral heights and alignment are maintained. No acute fracture or subluxation. There is demineralization of bones. The prevertebral soft tissues are with in normal limits. The visualized soft tissues of the neck show no signific ant abnormalities. Degenerative disc disease and facet arthropathy is pres ent at multiple levels. Prior surgical changes and metallic hardware. Li mited exam. IMPRESSION: No definite acute osse ous abnormality with other findings as above. at 0317 Reported and signed by: Celestine Shaikh MD CC: Tari Macias MD; Bam Heaton DO Technologist:Robert Cain RT(R)(CT) CTDI: DLP: Trnscb Date/Time: 11/13/2019 (316) [email or web address] Orig Print D/T: S: 11/13/2019 (319) PAGE 1 Signed Report - CT HEAD/BRAIN W/O [id number] 03:12:00 Name: LAKEISHA GIL [facility] : 1945 Age/S: 74 / F [address] [facility] Unit #: [id number] Loc: [place] [address] Phys: Tari Macias MD Acct: [id number] Di s Date: Status: REG ER PHONE #: Exam Date: 11/13/2019 025 FAX #: Reason: fall, head injury EXAMS: CPT CODE: [id number] CT HEAD/BRAIN W/O CONT 33838 EXAM: - CT HEAD/BRAIN W/ O CONT HISTORY: Fall. TECHNIQUE: Axial tomograms thr ough the brain were obtained without intravenous contrast. This exam was performed according to our departmental dose-optimization program, wh ich includes automated exposure control, adjustment of the mA and/or kV ac cording to patient size and/or use of iterative reconstruction technique. COMPARISON: July 28, 2019. FINDINGS: There is no intracranial hemorrhage, mass, or mass effect. The ventricul ar system and sulci are age-appropriate. Evaluation limited due t o artifact. There is no significant change compared to previous exam. The osseous structures and orbits, show no significant abnormalities. The visualized sinuses are relatively clear. The soft tissues are unremar kable. IMPRESSION: No evidence of acute intrac ranial hemorrhage. at 0312 Reported and signed by: Celestine Moffett MD CC: Tari Macias MD; Keyshawn Heaton DO Technologist:Robert Cain RT(R)(CT) CTDI: DLP: Trnscb D ate/Time: 11/13/2019 (311) [email or web address] Orig Print D/T: S: 11/13/2019 (1545) PAGE 1 Signed Report [id number] 07:39:00* Test Item Value Reference Range Interpretation Comments GLYCOSYLATED HEMOGLOBIN (HA1C) (test code = GLYHGB) 5.7 % HbA1 SUGGESTED DIAGNOSIS: HbA1C (%) Diabetic >6.4Prediabetes 5.7 - 6.4Normal <5.7 ESTIMATED AVERAGE GLUCOSE (test code = EAG) 117 MG/DL LIPID PROFILE (CORONARY RISK)2019-10-13 05:00:00* Test Item Value Reference Range Interpretation Comments TRIGLYCERIDES (test code = TRIG) 73 mg/dL 20-150 N CHOLESTEROL (test code = CHOL) 166 mg/dL 0-200 N CHOLESTEROL/HDL RATIO (test code = CHOLHDL) 2.0 RATIO 0-4.9 N RISK ASSOCIATED WITH CHOL/HDL RATIOS: Risk Male Female1/2 AVERAGE 3.43 3.27AVERAGE 4.97 4.442X AVERAGE 9.55 7.053X AVERAGE 23.39 11.04 REFERENCE VALUE IS RELATED TO RISK LEVELS ASRECOMMENDED BY THE BRIELLE. HEART, LUNG, AND BLOOD INST. HDL CHOLESTEROL (test code = HDL) 63 mg/dL 40-60 H LIPOPROTEIN LDL (test code = LDL) 84 mg/dL 100-129 L Reference Interval: mg/dL mmol/L Optimal <100 <2.6Near/above optimal 100-129 2.6- 3.3Borderline High 130-159 3.4-4.1High 160-189 4.1-4.9Very High >=190 >=4.9========= This LDL result is a direct measurement.========= [id number] 23:32:00* Test Item Value Reference Range Interpretation Comments TROPONIN-I (test code = TROPI) <0.015 ng/mL 0-0.045 N COMMENTS TO BONE WORKER: COLLECT 3 HOURS AFTER PREVIOUS [id number] 19:26:00* Test Item Value Reference Range Interpretation Comments TROPONIN-I (test code = TROPI) <0.015 ng/mL 0-0.045 N COMMENTS TO BONE WORKER: COLLECT 3 HOURS AFTER PREVIOUS [id number] 16:54:00* Test Item Value Reference Range Interpretation Comments DIGOXIN (test code = DIG) 1.4 ng/mL 0.90-2.0 N NO TE: Spironolactone interference may cause a decrease inreported Digoxin results of 11-30 %. PROTHROMBIN [id number] 16:47:00* Test Item Value Reference Range Interpretation Comments PROTHROMBIN TIME PATIENT (test code = PTP) 11.9 seconds 9.0-14.0 N INTERNATIONAL NORMAL RATIO (test code = INR) 1.0 0.8-1.2 N The therapeutic range for oral anticoagulant therapy formost indications is an international normalized ratio (INR)of between 2.0 and 3.0. The recommended therapeutic INRrange for various clinical situations is listed below: Clinical Situation INR range Pulmonary e mbolism treatment (2.0-3.0)Venous thrombosis treatmentVenous thrombosis prophylaxis (high risk surgery)Prevention of systemic embolism from: Acute myocardial infarction Valvular heart disease Atrial fibrillation Mechanical prosthetic heart valves (2.5-3.5) THROMBOPLASTIN TIME [id number] 16:47:00* Test Item Value Reference Range Interpretation Comments THROMBOPLASTIN TIME PARTIAL (test code = PTT) 31.3 seconds 23.0-37. 0 N B-TYPE NATRIURETIC [id number] 13:45:00* Test Item Value Reference Range Interpretation Comments B-TYPE NATRIURETIC PEPTIDE (test code = BNP) 59.81 pgram/mL 0-100 N BASIC METABOLIC [id number] 13:03:00* Test Item Value Reference Range Interpretation Comments SODIUM (test code = NA) 139 mmol/L 136-145 N POTASSIUM (test code = K) 4.1 mmol/L 3.5-5.1 N CHLORIDE (test code = CL) 104.0 mmol/L 98-107 N CARBON DIOXIDE (test code = CO2) 29.0 mmol/L 21-32 N ANION GAP (test code = GAP) 10.1 10-20 N GLUCOSE (test code = GLU) 83 mg/dL 74-106 N BLOOD UREA NITROGEN (test code = BUN) 18 mg/dL 7-18 N GLOMERULAR FILTRATION RATE (test code = GFR) > 60 mL/min >=60 Estimated GFR by using Modified MDRD formula.Chronic kidney disease is defined as either kidney damageor GFR <60 mL/min/1.73 m2 for >3 months. CREATININE (test code = CREAT) 0.60 mg/dL 0.55-1.02 N Note change in reference range due to change in reagent. BUN/CREATININE RATIO (test code = BUN/CREA) 30.0 10-20 H CALCIUM (test code = CA) 8.6 mg/dL 8.5-10.1 N [id number] 13:03:00* Test Item Value Reference Range Interpretation Comments TROPONIN-I (test code = TROPI) <0.015 ng/mL 0-0.045 N BASIC METABOLIC [id number] 12:52:00* Test Item Value Reference Range Interpretation Comments SODIUM (test code = NA) 139 mmol/L 136-145 N POTASSIUM (test code = K) 4.1 mmol/L 3.5-5.1 N CHLORIDE (test code = CL) 104.0 mmol/L 98-107 N CARBON DIOXIDE (test code = CO2) mmol/L 21-32 ANION GAP (test code = GAP) 10-20 GLUCOSE (test code = GLU) mg/dL 74-106 BLOOD UREA NITROGEN (test code = BUN) mg/dL 7-18 GLOMERULAR FILTRATION RATE (test code = GFR) mL/min >=60 CREATININE (test code = CREAT) mg/dL 0.55-1.02 BUN/CREATININE RATIO (test code = BUN/CREA) 10-20 CALCIUM (test code = CA) mg/dL 8.5-10.1 [id number] 12:52:00* Test Item Value Reference Range Interpretation Comments TROPONIN-I (test code = TROPI) ng/mL 0-0.045 CBC W/O [id number] 12:44:00* Test Item Value Reference Range Interpretation Comments WHITE BLOOD CELL (test code = WBC) 6.8 K/mm3 4.5-12.5 N RED BLOOD CELL (test code = RBC) 4.29 mill/mm3 3.7-5.2 N HEMOGLOBIN (test code = HGB) 12.9 gram/dL 11.5-15.5 N HEMATOCRIT (test code = HCT) 41.0 % 36.0-46.0 N MEAN CELL VOLUME (test code = MCV) 95.6 fL 80-98 N MEAN CELL HGB (test code = MCH) 30.1 picogram 27.0-33.0 N MEAN CELL HGB CONCETRATION (test code = MCHC) 31.5 gram/dL 33.0-36. 0 L RED CELL DISTRIBUTION WIDTH (test code = RDW) 15.2 % 11.6-16. 2 N PLATELET COUNT (test code = PLT) 212 K/mm3 150-450 N MEAN PLATELET VOLUME (test code = MPV) 11.2 fL 6.7-11.0 H - XR CHEST 1 [id number] 11:48:00 FAX: Dioni Benson [phone] [place]: B St: REG FAX: Keyshawn Knowles DO [phone] Name: LAKEISHA GIL [facility] : 1945 Age/S: 74/F [address] Unit #: [id number] Loc: [place] [address] Phys: Dioni Benson MD Acct: [id number] Dis Date: Status: REG ER PHONE #: [phone] Exam Date: 10/12/2019 1140 FAX #: [phone] Reason: CHEST PAIN EXAMS: CPT CODE: [id number] XR CHEST 1 V 76269 HISTORY: Chest pain. COMPARISON: June 08, 2019. Location: [facility]. No acute infiltrates, effusion or congestion is noted. Dependent changes. Cardiomegaly. Thecal sac catheter. Pedicular screws in the lower dorsal and upper lumbar spine noted again. Shoulder prosthesis on the left noted again. IMPRESSION: No acute infiltrates, effusion or congestion. Suboptimal inspiration with dependent changes. at 1148 Reported and signed by: Nick Singleton M.D. CC: Dioni Benson MD; Keyshawn Lynn DO Technologist: Kiley Majano, RT(R); RT SAMREEN( R) [facility] Date/Time/By: 10/12/2019 (1148) : By: [email or web address] Orig Print D/T: S: 10/12/2019 (2822) PAGE 1 Signed Report COMPREHENSIVE METABOLIC [id number] 11:31:00* Test Item Value Reference Range Interpretation Comments SODIUM (test code = NA) 138 mmol/L 136-145 N POTASSIUM (test code = K) 3.9 mmol/L 3.5-5.1 N CHLORIDE (test code = CL) 102.0 mmol/L 98-107 N CARBON DIOXIDE (test code = CO2) 32.0 mmol/L 21-32 N ANION GAP (test code = GAP) 7.9 10-20 L GLUCOSE (test code = GLU) 89 mg/dL 74-106 N BLOOD UREA NITROGEN (test code = BUN) 18 mg/dL 7-18 N GLOMERULAR FILTRATION RATE (test code = GFR) > 60 mL/min >=60 Estimated GFR by using Modified MDRD formula.Chronic kidney disease is defined as either kidney damageor GFR <60 mL/min/1.73 m2 for >3 months. CREATININE (test code = CREAT) 0.70 mg/dL 0.55-1.02 N Note change in reference range due to change in reagent. BUN/CREATININE RATIO (test code = BUN/CREA) 25.7 10-20 H TOTAL PROTEIN (test code = PROT) 7.4 gram/dL 6.4-8.2 N ALBUMIN (test code = ALB) 3.3 g/dL 3.4-5.0 L GLOBULIN (test code = GLOB) 4.1 gram/dL 2.7-4.2 N ALBUMIN/GLOBULIN RATIO (test code = A/G) 0.8 0.75-1.50 N CALCIUM (test code = CA) 8.8 mg/dL 8.5-10.1 N BILIRUBIN TOTAL (test code = BILT) 0.40 mg/dL 0.0-1.0 N SGOT/AST (test code = AST) 17 IUnit/L 15-37 N SGPT/ALT (test code = ALT) 29 IUnit/L 12-78 N ALKALINE PHOSPHATASE TOTAL (test code = ALKP) 106 IUnit/L 45-117 N Note change in reference range due to change in reagent. CBC W/AUTO [id number] 11:23:00* Test Item Value Reference Range Interpretation Comments WHITE BLOOD CELL (test code = WBC) 6.4 K/mm3 4.5-12.5 N RED BLOOD CELL (test code = RBC) 4.35 mill/mm3 3.7-5.2 N HEMOGLOBIN (test code = HGB) 12.8 gram/dL 11.5-15.5 N HEMATOCRIT (test code = HCT) 40.9 % 36.0-46.0 N MEAN CELL VOLUME (test code = MCV) 94.0 fL 80-98 N MEAN CELL HGB (test code = MCH) 29.4 picogram 27.0-33.0 N MEAN CELL HGB CONCETRATION (test code = MCHC) 31.3 gram/dL 33.0-36. 0 L RED CELL DISTRIBUTION WIDTH (test code = RDW) 15.0 % 11.6-16. 2 N RED CELL DISTRIBUTION WIDTH SD (test code = RDW-SD) 51.8 fL 37 .0-51.0 H PLATELET COUNT (test code = PLT) 239 K/mm3 150-450 N MEAN PLATELET VOLUME (test code = MPV) 10.2 fL 6.7-11.0 N NEUTROPHIL % (test code = NT%) 68.6 % 39.0-69.0 N IMMATURE GRANULOCYTE % (test code = IG%) 0.5 % 0.0-5.0 N LYMPHOCYTE % (test code = LY%) 16.7 % 25.0-55.0 L MONOCYTE % (test code = MO%) 9.8 % 0.0-10.0 N EOSINOPHIL % (test code = EO%) 3.8 % 0.0-5.0 N BASOPHIL % (test code = BA%) 0.6 % 0.0-1.0 N NUCLEATED RBC % (test code = NRBC%) 0.0 % 0-0 N NEUTROPHIL # (test code = NT#) 4.39 K/mm3 1.8-7.7 N IMMATURE GRANULOCYTE # (test code = IG#) 0.03 x10 3/uL 0-0.03 N LYMPHOCYTE # (test code = LY#) 1.07 K/mm3 1.0-5.0 N MONOCYTE # (test code = MO#) 0.63 K/mm3 0-0.8 N EOSINOPHIL # (test code = EO#) 0.24 K/mm3 0.0-0.5 N BASOPHIL # (test code = BA#) 0.04 K/mm3 0.0-0.2 N NUCLEATED RBC # (test code = NRBC#) 0.00 K/mm3 0.0-0.1 N MANUAL DIFF REQUIRED (test code = MDIFF) NO CBC W/AUTO [id number] 11:22:00* Test Item Value Reference Range Interpretation Comments WHITE BLOOD CELL (test code = WBC) K/mm3 4.5-12.5 RED BLOOD CELL (test code = RBC) mill/mm3 3.7-5.2 HEMOGLOBIN (test code = HGB) 12.8 gram/dL 11.5-15.5 N HEMATOCRIT (test code = HCT) 40.9 % 36.0-46.0 N MEAN CELL VOLUME (test code = MCV) fL 80-98 MEAN CELL HGB (test code = MCH) picogram 27.0-33.0 MEAN CELL HGB CONCETRATION (test code = MCHC) gram/dL 33.0-36. 0 RED CELL DISTRIBUTION WIDTH (test code = RDW) % 11.6-16. 2 RED CELL DISTRIBUTION WIDTH SD (test code = RDW-SD) fL 37 .0-51.0 PLATELET COUNT (test code = PLT) K/mm3 150-450 MEAN PLATELET VOLUME (test code = MPV) fL 6.7-11.0 NEUTROPHIL % (test code = NT%) % 39.0-69.0 IMMATURE GRANULOCYTE % (test code = IG%) % 0.0-5.0 LYMPHOCYTE % (test code = LY%) % 25.0-55.0 MONOCYTE % (test code = MO%) % 0.0-10.0 EOSINOPHIL % (test code = EO%) % 0.0-5.0 BASOPHIL % (test code = BA%) % 0.0-1.0 NEUTROPHIL # (test code = NT#) K/mm3 1.8-7.7 LYMPHOCYTE # (test code = LY#) K/mm3 1.0-5.0 MONOCYTE # (test code = MO#) K/mm3 0-0.8 EOSINOPHIL # (test code = EO#) K/mm3 0.0-0.5 BASOPHIL # (test code = BA#) K/mm3 0.0-0.2 COMPREHENSIVE METABOLIC [id number] 11:22:00* Test Item Value Reference Range Interpretation Comments SODIUM (test code = NA) 138 mmol/L 136-145 N POTASSIUM (test code = K) 3.9 mmol/L 3.5-5.1 N CHLORIDE (test code = CL) 102.0 mmol/L 98-107 N CARBON DIOXIDE (test code = CO2) mmol/L 21-32 ANION GAP (test code = GAP) 10-20 GLUCOSE (test code = GLU) mg/dL 74-106 BLOOD UREA NITROGEN (test code = BUN) mg/dL 7-18 GLOMERULAR FILTRATION RATE (test code = GFR) mL/min >=60 CREATININE (test code = CREAT) mg/dL 0.55-1.02 BUN/CREATININE RATIO (test code = BUN/CREA) 10-20 TOTAL PROTEIN (test code = PROT) gram/dL 6.4-8.2 ALBUMIN (test code = ALB) g/dL 3.4-5.0 GLOBULIN (test code = GLOB) gram/dL 2.7-4.2 ALBUMIN/GLOBULIN RATIO (test code = A/G) 0.75-1.50 CALCIUM (test code = CA) mg/dL 8.5-10.1 BILIRUBIN TOTAL (test code = BILT) mg/dL 0.0-1.0 SGOT/AST (test code = AST) IUnit/L 15-37 SGPT/ALT (test code = ALT) IUnit/L 12-78 ALKALINE PHOSPHATASE TOTAL (test code = ALKP) IUnit/L 45-117 - CT C-SPINE W/O [id number] 05:45:00 Name: LAKEISHA GIL [facility] : 1945 Age/S: 73 / F [address] [facility] Unit #: [id number] Loc: [place] [address] Phys: Dioni Benson MD Acct: [id number] Dis Date: Status: REG ER PHONE #: [phone] Exam Date: 07/28/2019519 FAX #: [phone] Reason: Neck Pain EXAMS: CPT CODE: [id number] CT C-SPINE W/O CONTRAST 98432 CT of the brain without contrast and cervical spine History: Headaches and neck pain Technique: Contiguous axial images were obtained from the skull base to the vertex without the administration of intravenous contrast. Contiguous axial CT images were obtained from the vertex through T1 without contrast. Coronal and sagittal reformatted images of the cervical spine were also performed. One or more of the following dose reduction techniques were used: Automated exposure control, adjustment of the mA and/or kV according to patient size, and/or utilization of iterative reconstruction technique. Comparison made to prior examination of June 06 2019 Findings: CT brain: There is prominence of the ventricles and sulci consistent with mild moderate supratentorial cerebral volume loss. The basilar cisterns are patent. There is no intracranial hemorrhage or mass effect. No intra-axial or ex tra-axial fluid collections are seen. There are diffuse perivent ricular and subcortical white matter hypodensities which are nonspecific, but likely the sequelae of chronic microvascular ischemia. The visualized paranasal sinuses and mastoid air cells are clear. The misbah m hardening from patient's dental work limits evaluation, most significant ly at the skull base CT cervical spine: The cervical spine is visualized from the skull base through T1. No evidence o f acute fracture is demonstrated. Again redemonstrated is fusion of the s pinous process of C5-C6 with asymmetric widening of the left C5-C6 facet i n similar appearance to prior examinations. No prevertebral soft tissue s welling is noted. Extensive multilevel degenerative changes are seen. Non specific lucencies within the articular facets at multiple levels are agai n demonstrated similar PAGE 1 Signed Report (CONTINUED) Name: LAKEISHA GIL [facility] : 1945 Age/S: 73 / F [address] Unit #: [id number] Loc: [place] [address] Phys: Dioni Benson MD Acct: [id number] Dis Date: Status: REG ER PHONE #: [phone] Exam Date: 07/28/2019519 FAX #: [phone] Reason: Neck Pain EXAMS: CPT CODE: [id number] C-SPINE W/O CONTRAST 23844 < Continued> appearance to prior, the largest seen at the right C4. Impression: No acute intracranial hemmorhage or significant mass effect No evidence of acute osseous cervical fracture or traumatic subluxation Multiple Additional findings as above. at 0545 Reported and signed by: Estrella Ching M.D. CC: Dioni Benson MD; Ari Heaton Technologist:RT VICK CTDI: DLP: Trnscb Date/Time: 07/28/2019 (45) [email or web address] Orig Print D/T: S: 07/28/2019 (0548) PAGE 2 Signed Report - CT HEAD/BRAIN W/O [id number] 05:45:00 Name: LAKEISHA GIL [facility] : 1945 Age/S: 73 / F [address] Unit #: [id number] Loc: [place] [address] Phys: Dioni Benson MD Acct: [id number] Di s Date: Status: REG ER PHONE #: [phone] Exam Date: 07/28/2019519 FAX #: [phone] Reason: HEADACHE EXAMS: CPT CODE: [id number] CT HEAD/BRAIN W/O CONT 76969 CT of the brain without c ontrast and cervical spine History: Headaches and neck pain Technique: Contiguous axial images were obtained from the skull base to the vertex without the administration of intravenous contrast. Acosta guous axial CT images were obtained from the vertex through T1 without con trast. Coronal and sagittal reformatted images of the cervical spine were also performed. One or more of the following dose reduction techniques wer e used: Automated exposure control, adjustment of the mA and/or kV accordi ng to patient size, and/or utilization of iterative reconstruction techniq ue. Comparison made to prior examination of June 06 2019 Findings: CT brain: There is prominence of the ventricles and sulci consistent with mild moderate supratentorial cer ebral volume loss. The basilar cisterns are patent. There is no intracranial hemorrhage or mass effect. No intra-axial or ex tra-axial fluid collections are seen. There are diffuse perivent ricular and subcortical white matter hypodensities which are nonspecific, but likely the sequelae of chronic microvascular ischemia. The visualized paranasal sinuses and mastoid air cells are clear. The misbah m hardening from patient's dental work limits evaluation, most significant ly at the skull base CT cervical spine: The cervical spine is visualized from the skull base through T1. No evidence o f acute fracture is demonstrated. Again redemonstrated is fusion of the s pinous process of C5-C6 with asymmetric widening of the left C5-C6 facet i n similar appearance to prior examinations. No prevertebral soft tissue s welling is noted. Extensive multilevel degenerative changes are seen. Non specific lucencies within the articular facets at multiple levels are agai n demonstrated similar PAGE 1 Signed Report (CONTINUED) Name: LAKEISHA GIL [facility] : 1945 Age/S: 73 / F [address] [facility] Unit #: [id number] Loc: [place] [address] Phys: Dioni Benson MD Acct: [id number] Dis Date: Status: REG ER PHONE #: [phone] Exam Date: 07/28/2019519 FAX #: [phone] Reason: HEADACHE EXAMS: CPT CODE: [id number] HEAD/BRAIN W/O CONT 58032 < Continued> appearance to prior, the largest seen at the right C4. Impression: No acute intracranial hemmorhage or significant mass effect No evidence of acute osseous cervical fracture or traumatic subluxation Multiple Additional findings as above. at 0545 Reported and signed by: Estrella Ching M.D. CC: Dioni Benson MD; Ari Heaton Technologist:RT VICK CTDI: DLP: Trnscb Date/Time: 07/28/2019 (544) [email or web address] Orig Print D/T: S: 07/28/2019 (0623) PAGE 2 Signed Report - XR KNEE 3 V [id number] 05:42:00 FAX: Dioni Benson [phone] [place]: B St: REG FAX: Y Ari Heaton [phone] Name: LAKEISHA GIL [facility] : 1945 Age/S: 73/F [address] Unit #: [id number] Loc: [place] [address] Phys: Dioni Benson MD Acct: [id number] Dis Date: Status: REG ER PHONE #: [phone] Exam Date: 07/28/2019522 FAX #: [phone] Reason: KNEE PAIN EXAMS: CPT CODE: [id number] XR KNEE 3 V RT 34574 R16 EXAM: - XR KNEE 3 V RT HISTORY: KNEE PAIN COMPARISON: None FINDINGS: No acute fracture or dislocation. Mild tricompartmental joint narrowing wi th osteophyte formation. No aggressive osseous lesions. No soft tissue ab normality. IMPRESSION: Mild degenerative joint disease. No acute osseous abnormality. at 0542 Reported and signed by: Thad Infante MD CC: Dioni Benson MD; Ari Heaton Technologist: ALEXANDRA ESPINOSA RT Trnscrd Date/Time/By: 07/28/2019 (0507) : By: [email or web address] Orig Pr int D/T: S: 07/28/2019 (9280) PAGE 1 Signed Report - XR HIP W/PEL UNI 2+V RT 2019-07-28 05:41:00 FAX: Dioni Benson [phone] [place]: B St: REG FAX: Y Ari Heaton [phone] Name: LAKEISHA GIL [facility] : 1945 Age/S: 73/F [address] [facility] Unit #: [id number] Loc: [place] [address] Phys: Dioni Benson MD Acct: [id number] Dis Date: Status: REG ER PHONE #: [phone] Exam Date: 07/28/2019528 FAX #: [phone] Reason: pain s/p fall EXAMS: CPT CODE: [id number] XR HIP W/PEL UNI 2+[place] 86873 R16 EXAM: - XR HIP W/PEL UNI 2+V RT HISTORY: pain s/p fall COMPARISON: None FINDINGS: No acute fracture or dislocation. Severe acetabular joint space narrowing. No aggressive osseous lesions. No soft tissue abnormality. IMPRESSION: Severe degenerative joint disease. No displaced fracture. If pain persists, consider further evaluation with CT or MRI. at 0541 Reported and signed by: Thad Infante MD CC: Dioni Benson MD; Ari Heaton Technologist: RT VICK Trnhird Date/Time/By: 10/2019 (05) : By: [email or web address] Orig Print D/T: S: 07/28/2019 (0421) PAGE 1 Signed Report - XR ANKLE 3 + V [id number] 05:41:00 FAX: Dioni Benson [phone] [place]: St: REG FAX: Y Ari Heaton [phone] Name: LAKEISHA GIL [facility] : 1945 Age/S: 73/F [address] [facility] Unit #: [id number] Loc: [place] [address] Phys: Dioni Benson MD Acct: [id number] Dis Date: Status: REG ER PHONE #: [phone] Exam Date: 07/28/2019 05 FAX #: [phone] Reason: ANKLE PAIN EXAMS: CPT CODE: [id number] XR ANKLE 3 + V RT 67319 R16 EXAM: - XR ANKLE 3 + V RT HISTO RY: ANKLE PAIN COMPARISON: None FINDINGS: No acute fracture or dislocation. The joint spaces are preserved. No a ggressive osseous lesions. No soft tissue abnormality. IMPRESSI ON: No acute osseous abnormality. at 0541 Reported and signed by: Thad Infante MD CC: Dioni Benson MD; Ari Heaton Technologist: RT VICK Trnscrd Date/Time/By: 07/28/2019 (0541) : By: [email or web address] O rig Print D/T: S: 07/28/2019 (3661) PAGE 1 Signed Report - XR PELVIS 3 + V 2019-07-20 13:17:00 FAX: Tavo Aguirre MD [phone] [place]: St: REG FAX: Ari Knowles [phone] Name: JEFFERYLAKEISHA LEUNG [facility] [place] : 1945 Age/S: 73/F [address] [place] [address] Unit #: [id number] Loc: [place] [address] Phys: Tavo Sewell MD Acct: [id number] Dis Date: Status: REG RCR PHONE #: [phone] Exam Date: 07/20/2019 1012 FAX #: Reason: INLET OUTLET EXAMS: CPT CODE: [id number] XR PELVIS 3 + V 53183 HISTORY: INLET OUTLET EXAM: AP, inlet, and outlet views of the pelvis Comparison: Pelvis radiographs June 03, 2019 FINDINGS: No fractures of the bony pelvis. There are severe degenerative changes in the bilateral hips and there is right-sided acetabular protrusion. These findings appear similar to the previous exam. Fusion hardware in the lower lumbar spine appears similar to the previous exam with no obvious hardware loosening. Pulse generator projects over the left iliac bone, similar to prior exam. IMPRESSION: No acute bony abnormalities of the pelvis. Severe de generative changes of the hips appear similar to the prior exam. Location: [facility] 20 at 1317 Reported and signed by: Arthur Hodgson MD CC: Tavo Sewell MD; Ari Heaton Technolog ist: FLOYD Ballard) Trnscrd Date/Time/By : 07/20/2019 (1317) : By: [email or web address] Orig Print D/T: S: 07/20/2019 (132 0) PAGE 1 Signed Report - XR WRIST 3 + V [id number] 11:49:00 FAX: Tavo Aguirre MD [phone] [place]: St: REG FAX: Ari Knowles [phone] Name: LAKEISHA GIL [facility] [place] : 1945 Age/S: 73/F [address] [place] [address] Unit #: [id number] [facility] [place] [phone] Phys: Tavo Sewell MD Acct: [id number] Dis Date: Status: REG RCR PHONE #: [phone] Exam Date: 07/20/2019 1012 FAX #: Reason: FRACTURE EXAMS: CPT CODE: [id number] XR WRIST 3 + V LT [address] REASON FOR EXAM: FRACTURE EXAM ORDER DATE: 020 9:54 AM Ordering M.D.: Tavo Sewell MD PROC EDURE: - XR WRIST 3 + V LT Comparison:Left wrist radiographs Feb FINDINGS/ IMPRESSION: Po st traumatic changes involving the distal radius and distal ulna appear similar to the previous exam. Hardware is unchanged in position with no evidence of hardware loosening. There is positive ulnar variance and dis ruption of the distal radioulnar joint. This is also unchanged from the previous exam. Degenerative changes are present in the radioca rpal joint. However the carpal bones and the carpal rows are intact. Location: [facility] at 1149 Reported and signed by: Arthur romero MD CC: Tavo Sewell MD; Ari Heaton Technologist: RT Nellie(Alin) Trnscrd Da te/Time/By: 07/20/2019 (7635) : By: [email or web address] Orig Print D/T: S: 07/20 (7087) PAGE 1 Signed Report Blood leukocytes automated count (number/volume) 2019-07-06 09:18:00* Test Item Value Reference Range Interpretation Comments White Blood Count (test code = 6690-2) 7.44 4.8-10.8 [facility] count (number/volume)2019-07-06 09:18:00* Test Item Value Reference Range Interpretation Comments Red Blood Count (test code = 789-8) 4.09 3.6-5.1 [facility] mean corpuscular [id number] 09:18:00* Test Item Value Reference Range Interpretation Comments Mean Corpuscular Volume (test code = 787-2) 94.4 81-99 [facility] mean corpuscular hemoglobin (mass per erythrocyte)2019-07-06 09:18:00* Test Item Value Reference Range Interpretation Comments Mean Corpuscular Hemoglobin (test code = 785-6) 29.8 28-32 [facility] mean corpuscular hemoglobin concentration measurement (mass/volume)2019-07-06 09:18:00* Test Item Value Reference Range Interpretation Comments Mean Corpuscular Hemoglobin Concent (test code = 786-4) 31.6 31-35 [facility] District[facility] [id number]-[id number] 09:18:00* Test Item Value Reference Range Interpretation Comments Red Cell Distribution Width (test code = 81342-7) 14.0 11.7 -14.4 [facility] platelet count (count/volume)2019-07-06 09:18:00* Test Item Value Reference Range Interpretation Comments Platelet Count (test code = 777-3) 249 140-360 [facility] segmented neutrophil count as percentage of total [id number] 09:18:00* Test Item Value Reference Range Interpretation Comments Neutrophils (%) (Auto) (test code = 27922-8) 68.6 38.7-80.0 [facility] lymphocyte count as percentage ot total sssmhfmxkr8484-67-60 09:18:00* Test Item Value Reference Range Interpretation Comments Lymphocytes (%) (Auto) (test code = 736-9) 18.4 18.0-39.1 [facility] monocyte count as percentage of total kdhdgywgyx9740-83-19 09:18:00* Test Item Value Reference Range Interpretation Comments Monocytes (%) (Auto) (test code = 5905-5) 9.4 4.4-11.3 [facility] eosinophil count as percentage of total aeivlodtwe7756-52-36 09:18:00* Test Item Value Reference Range Interpretation Comments Eosinophils (%) (Auto) (test code = 713-8) 2.8 0.0-6.0 [facility] basophil count as percentage of total vqfdmvnapf9419-84-79 09:18:00* Test Item Value Reference Range Interpretation Comments Basophils (%) (Auto) (test code = 706-2) 0.4 0.0-1.0 [facility] DistrictFluoroscopic procedure less than one hour ebckfgun4651-88-87 09:18:00* Test Item Value Reference Range Interpretation Comments IM GRANULOCYTES % (test code = IM GRANULOCYTES %) 0.4 0.0- 1.0 [facility] neutrophil count 2019-07-06 09:18:00* Test Item Value Reference Range Interpretation Comments Neutrophils # (Auto) (test code = 751-8) 5.1 2.1-6.9 [facility] lymphocytes count (number/volume) 2019-07-06 09:18:00* Test Item Value Reference Range Interpretation Comments Lymphocytes # (Auto) (test code = 68548-4) 1.4 1.0-3.2 [facility] District[facility] monocytes automated count (number/volume)2019-07-06 09:18:00* Test Item Value Reference Range Interpretation Comments Monocytes # (Auto) (test code = 742-7) 0.7 0.2-0.8 [facility] blood eosinophil count 2019-07-06 09:18:00* Test Item Value Reference Range Interpretation Comments Eosinophils # (Auto) (test code = 711-2) 0.2 0.0-0.4 [facility] blood basophil count (count/volume)2019-07-06 09:18:00* Test Item Value Reference Range Interpretation Comments Basophils # (Auto) (test code = 704-7) 0.0 0.0-0.1 [facility] DistrictFluoroscopic procedure less than one hour ojgvtdoq1856-96-02 09:18:00* Test Item Value Reference Range Interpretation Comments Absolute Immature Granulocyte (auto (sherly t code = Absolute Immature Granulocyte (auto) 0.03 0-0.1 [facility] DistrictCOMPREHENSIVE METABOLIC [id number] 07:17:00* Test Item Value Reference Range Interpretation Comments SODIUM (test code = NA) 142 mmol/L 136-145 N POTASSIUM (test code = K) 4.0 mmol/L 3.5-5.1 N CHLORIDE (test code = CL) 103.0 mmol/L 98-107 N CARBON DIOXIDE (test code = CO2) 34.0 mmol/L 21-32 H ANION GAP (test code = GAP) 9.0 10-20 L GLUCOSE (test code = GLU) 95 mg/dL 74-106 N BLOOD UREA NITROGEN (test code = BUN) 18 mg/dL 7-18 N GLOMERULAR FILTRATION RATE (test code = GFR) > 60 mL/min >=60 Estimated GFR by using Modified MDRD formula.Chronic kidney disease is defined as either kidney damageor GFR <60 mL/min/1.73 m2 for >3 months. CREATININE (test code = CREAT) 0.60 mg/dL 0.55-1.02 N Note change in reference range due to change in reagent. BUN/CREATININE RATIO (test code = BUN/CREA) 30.0 10-20 H TOTAL PROTEIN (test code = PROT) 7.6 gram/dL 6.4-8.2 N ALBUMIN (test code = ALB) 3.4 g/dL 3.4-5.0 N GLOBULIN (test code = GLOB) 4.2 gram/dL 2.7-4.2 N ALBUMIN/GLOBULIN RATIO (test code = A/G) 0.8 0.75-1.50 N CALCIUM (test code = CA) 8.7 mg/dL 8.5-10.1 N BILIRUBIN TOTAL (test code = BILT) 0.30 mg/dL 0.0-1.0 N SGOT/AST (test code = AST) 12 IUnit/L 15-37 L SGPT/ALT (test code = ALT) 24 IUnit/L 12-78 N ALKALINE PHOSPHATASE TOTAL (test code = ALKP) 129 IUnit/L 45-117 H Note change in reference range due to change in reagent. [id number] 07:17:00* Test Item Value Reference Range Interpretation Comments LIPASE (test code = LIP) 136 U/L 73.0-393.0 N COMPREHENSIVE METABOLIC [id number] 07:12:00* Test Item Value Reference Range Interpretation Comments SODIUM (test code = NA) 142 mmol/L 136-145 N POTASSIUM (test code = K) 4.0 mmol/L 3.5-5.1 N CHLORIDE (test code = CL) 103.0 mmol/L 98-107 N CARBON DIOXIDE (test code = CO2) mmol/L 21-32 ANION GAP (test code = GAP) 10-20 GLUCOSE (test code = GLU) mg/dL 74-106 BLOOD UREA NITROGEN (test code = BUN) mg/dL 7-18 GLOMERULAR FILTRATION RATE (test code = GFR) mL/min >=60 CREATININE (test code = CREAT) mg/dL 0.55-1.02 BUN/CREATININE RATIO (test code = BUN/CREA) 10-20 TOTAL PROTEIN (test code = PROT) gram/dL 6.4-8.2 ALBUMIN (test code = ALB) g/dL 3.4-5.0 GLOBULIN (test code = GLOB) gram/dL 2.7-4.2 ALBUMIN/GLOBULIN RATIO (test code = A/G) 0.75-1.50 CALCIUM (test code = CA) mg/dL 8.5-10.1 BILIRUBIN TOTAL (test code = BILT) mg/dL 0.0-1.0 SGOT/AST (test code = AST) IUnit/L 15-37 SGPT/ALT (test code = ALT) IUnit/L 12-78 ALKALINE PHOSPHATASE TOTAL (test code = ALKP) IUnit/L 45-117 [id number] 07:12:00* Test Item Value Reference Range Interpretation Comments LIPASE (test code = LIP) U/L 73.0-393.0 CBC W/AUTO [id number] 07:09:00* Test Item Value Reference Range Interpretation Comments WHITE BLOOD CELL (test code = WBC) 7.7 K/mm3 4.5-12.5 N RED BLOOD CELL (test code = RBC) 4.10 mill/mm3 3.7-5.2 N HEMOGLOBIN (test code = HGB) 12.2 gram/dL 11.5-15.5 N HEMATOCRIT (test code = HCT) 39.2 % 36.0-46.0 N MEAN CELL VOLUME (test code = MCV) 95.6 fL 80-98 N MEAN CELL HGB (test code = MCH) 29.8 picogram 27.0-33.0 N MEAN CELL HGB CONCETRATION (test code = MCHC) 31.1 gram/dL 33.0-36. 0 L RED CELL DISTRIBUTION WIDTH (test code = RDW) 13.9 % 11.6-16. 2 N RED CELL DISTRIBUTION WIDTH SD (test code = RDW-SD) 48.9 fL 37 .0-51.0 N PLATELET COUNT (test code = PLT) 267 K/mm3 150-450 N MEAN PLATELET VOLUME (test code = MPV) 10.0 fL 6.7-11.0 N NEUTROPHIL % (test code = NT%) 73.3 % 39.0-69.0 H IMMATURE GRANULOCYTE % (test code = IG%) 0.4 % 0.0-5.0 N LYMPHOCYTE % (test code = LY%) 15.9 % 25.0-55.0 L MONOCYTE % (test code = MO%) 6.7 % 0.0-10.0 N EOSINOPHIL % (test code = EO%) 3.2 % 0.0-5.0 N BASOPHIL % (test code = BA%) 0.5 % 0.0-1.0 N NUCLEATED RBC % (test code = NRBC%) 0.0 % 0-0 N NEUTROPHIL # (test code = NT#) 5.66 K/mm3 1.8-7.7 N IMMATURE GRANULOCYTE # (test code = IG#) 0.03 x10 3/uL 0-0.03 N LYMPHOCYTE # (test code = LY#) 1.23 K/mm3 1.0-5.0 N MONOCYTE # (test code = MO#) 0.52 K/mm3 0-0.8 N EOSINOPHIL # (test code = EO#) 0.25 K/mm3 0.0-0.5 N BASOPHIL # (test code = BA#) 0.04 K/mm3 0.0-0.2 N NUCLEATED RBC # (test code = NRBC#) 0.00 K/mm3 0.0-0.1 N MANUAL DIFF REQUIRED (test code = MDIFF) NO CBC W/AUTO [id number] 07:06:00* Test Item Value Reference Range Interpretation Comments WHITE BLOOD CELL (test code = WBC) K/mm3 4.5-12.5 RED BLOOD CELL (test code = RBC) mill/mm3 3.7-5.2 HEMOGLOBIN (test code = HGB) 12.2 gram/dL 11.5-15.5 N HEMATOCRIT (test code = HCT) 39.2 % 36.0-46.0 N MEAN CELL VOLUME (test code = MCV) fL 80-98 MEAN CELL HGB (test code = MCH) picogram 27.0-33.0 MEAN CELL HGB CONCETRATION (test code = MCHC) gram/dL 33.0-36. 0 RED CELL DISTRIBUTION WIDTH (test code = RDW) % 11.6-16. 2 RED CELL DISTRIBUTION WIDTH SD (test code = RDW-SD) fL 37 .0-51.0 PLATELET COUNT (test code = PLT) K/mm3 150-450 MEAN PLATELET VOLUME (test code = MPV) fL 6.7-11.0 NEUTROPHIL % (test code = NT%) % 39.0-69.0 IMMATURE GRANULOCYTE % (test code = IG%) % 0.0-5.0 LYMPHOCYTE % (test code = LY%) % 25.0-55.0 MONOCYTE % (test code = MO%) % 0.0-10.0 EOSINOPHIL % (test code = EO%) % 0.0-5.0 BASOPHIL % (test code = BA%) % 0.0-1.0 NEUTROPHIL # (test code = NT#) K/mm3 1.8-7.7 LYMPHOCYTE # (test code = LY#) K/mm3 1.0-5.0 MONOCYTE # (test code = MO#) K/mm3 0-0.8 EOSINOPHIL # (test code = EO#) K/mm3 0.0-0.5 BASOPHIL # (test code = BA#) K/mm3 0.0-0.2 URINALYSIS [id number] 05:16:00* Test Item Value Reference Range Interpretation Comments UA COLOR (test code = COLU) Light-Yellow YELLOW UA APPEARANCE (test code = APPU) CLEAR CLEAR UA GLUCOSE DIPSTICK (test code = DGLUU) NEGATIVE mg/dL NEGATIVE UA BILIRUBIN DIPSTICK (test code = BILU) NEGATIVE mg/dL NEGATIVE UA KETONE DIPSTICK (test code = KETU) NEGATIVE mg/dL NEGATIVE UA SPECIFIC GRAVITY (test code = SGU) 1.011 1.001-1.035 UA BLOOD DIPSTICK (test code = ERICH) Negative mg/dL NEGATIVE UA PH DIPSTICK (test code = HEATHER) 6.5 5.0-8.0 UA PROTEIN DIPSTICK (test code = PROU) NEGATIVE mg/dL NEGATIVE UA UROBILINIOGEN DIPSTICK (test code = URO) Normal mg/dL NEGATIVE UA NITRITE DIPSTICK (test code = LESLI) NEGATIVE NEGATIVE UA LEUKOCYTE ESTERASE W REFLEX (test code = LEUUR) NEGATIVE Marquez/uL NEGATIVE UA WBC (test code = WBCU) 0-5 per HPF 0-5 UA RBC (test code = RBCU) 0-2 #/HPF 0-5 UA EPITHELIAL CELLS (test code = EPIU) MOD per HPF FEW UA BACTERIA (test code = BACU) FEW #/HPF NONE A UA MUCUS (test code = MUCU) FEW #/LPF FEW Urine Source? Clean CatchURINALYSIS [id number] 05:11:00* Test Item Value Reference Range Interpretation Comments UA COLOR (test code = COLU) Light-Yellow YELLOW UA APPEARANCE (test code = APPU) CLEAR CLEAR UA GLUCOSE DIPSTICK (test code = DGLUU) NEGATIVE mg/dL NEGATIVE UA BILIRUBIN DIPSTICK (test code = BILU) NEGATIVE mg/dL NEGATIVE UA KETONE DIPSTICK (test code = KETU) NEGATIVE mg/dL NEGATIVE UA SPECIFIC GRAVITY (test code = SGU) 1.011 1.001-1.035 UA BLOOD DIPSTICK (test code = ERICH) Negative mg/dL NEGATIVE UA PH DIPSTICK (test code = HEATHER) 6.5 5.0-8.0 UA PROTEIN DIPSTICK (test code = PROU) NEGATIVE mg/dL NEGATIVE UA UROBILINIOGEN DIPSTICK (test code = URO) Normal mg/dL NEGATIVE UA NITRITE DIPSTICK (test code = LESLI) NEGATIVE NEGATIVE UA LEUKOCYTE ESTERASE W REFLEX (test code = LEUUR) NEGATIVE Marquez/uL NEGATIVE UA WBC (test code = WBCU) per HPF 0-5 UA RBC (test code = RBCU) per HPF 0-5 UA EPITHELIAL CELLS (test code = EPIU) per HPF Few UA BACTERIA (test code = BACU) per HPF NONE Urine Source? Clean Catch- XR ANKLE 3 + V [id number] 04:36:00 FAX: Ari Knowles [phone] [place]: St: REG FAX: Angelica Garcia [phone] Name: LAKEISHA GIL [facility] : 1945 Age/S: 73/F [address] Unit #: [id number] Loc: [place] [address] Phys: Angelica Patterson MD Acct: [id number] Dis Date: Status: REG ER PHONE #: [phone] Exam Date: 06/08/2019 042 FAX #: [phone] Reason: fall EXAMS: CPT CODE: [id number] XR ANKLE 3 + [place] [address] DICTATION LOCATION: H48 HISTORY: Female, 73 yea rs of age with fall, bilateral leg pain PROCEDURE(S): JAXON ATERAL TIBIAS AND FIBULAS, 2 VIEWS. BILATERAL ANKLE JOINTS,, 3 VIEWS. COMPARISON: Correlation made with bilateral knee x-rays performed 05/17/2019, left tibia and fibula x-rays performed 10/18/2015 COM MENT: Bones are quite osteopenic. Moderate chronic arthritis seen at bot h knee joints and ankle joints and asymmetric pattern. No acute fracture, dislocation, periosteal reaction, osteolytic or osteoblastic lesion. There are large bilateral plantar calcaneal spurs.Moderate soft tissue edema se en in both lower extremities. IMPRESSION: 1. No acute fr acture or dislocation in the right or left tibia, fibula, or ankle joint s. 2. Significant osteopenia. at 0436 Reported and signed by : Purvi Rosas MD CC: Ari Heaton; Angelica Patterson Technologist: Sarah Caal Trnscrd Date/Time/By: 06/08/2019 (0436) : By: Bryce Orig Herlinda nt D/T: S: 06/08/2019 (0439) PAGE 1 Signed Report - XR TIBIA/FIBULA 2 V BI 2019-06-08 04:36:00 FAX: Ari Knowles [phone] [place]: St: REG FAX: Angelica Garcia [phone] Name: LAKEISHA GIL [facility] : 1945 Age/S: 73/F [address] Unit #: [id number] Loc: [place] [address] Phys: Angelica Patterson MD Acct: [id number] Dis Date: Status: REG ER PHONE #: [phone] Exam Date: 06/08/2019 042 FAX #: [phone] Reason: fall EXAMS: CPT CODE: [id number] XR TIBIA/FIBUL[place] [address] DICTATION LOCATION: H48 HISTORY: Female, 73 years of age with fall, bilateral leg pain PROCEDURE(S): BILATERAL TIBIAS AND FIBULAS, 2 VIEWS. BILATERAL ANKLE JOINTS,, 3 VIEWS. COMPARISON: Correlation made with bilateral knee x-rays performed 05/17/2019, left tibia and fibula x-rays performed 10/18/2015 COM MENT: Bones are quite osteopenic. Moderate chronic arthritis seen at bot h knee joints and ankle joints and asymmetric pattern. No acute fracture, dislocation, periosteal reaction, osteolytic or osteoblastic lesion. There are large bilateral plantar calcaneal spurs.Moderate soft tissue edema se en in both lower extremities. IMPRESSION: 1. No acute fr acture or dislocation in the right or left tibia, fibula, or ankle joint s. 2. Significant osteopenia. at 043 Reported and signed by : Purvi Rosas MD CC: Ari Heaton; Angelica Patterson Technologist: Sarah Caal Trnhird Date/Time/By: 06/08/2019 (0436) : By: GhislaineW [facility] D/T: S: 06/08/2019 (0439) PAGE 1 Signed Report - XR PELVIS /2 [id number] 04:31:00 FAX: Ari Knowles [phone] [place]: St: REG FAX: Angelica Garcia [phone] Name: LAKEISHA GIL [facility] : 1945 Age/S: 73/F [address] Unit #: [id number] Loc: [place] [address] Phys: Angelica Patterson MD Acct: [id number] Dis Date: Status: REG ER PHONE #: [phone] Exam Date: 06/08/2019 0421 FAX #: [phone] Reason: fall EXAMS: CPT CODE: [id number] XR PELVIS 1/2 VIEWS 02350 DICTATION LOCATION: H48 HISTORY: Female, 73 years of age with fall EXAM: PELVIS, ONE VIEW COMPARISON: Previous pelvic x-rays and CT scan of pelvis performed 05/17/2019 FINDINGS: The patient is rotated to the right. Bones are osteopenic. There is severe arthritis at both hip joints (right greater than left) manifest by joint space narrowing, marginal spurring, articular surface sclerosis, and prominent subchondral cyst formation. There is no acute fracture, dislocation, or diastasis at the SI joints or pubic symphysis. Extensive hardware is seen in the lower lumbar spine and upper sacrum. IMPRESSION: Osteopenia and severe chronic arthritis. No acute bony abnormalities. Electronically Signed by Purvi Rosas MD on 06/08 at 0431 Reported and signed by: Purvi Rosas MD CC: Ari Heaton; Angelica Patterson MD T echnologist: Sarah [facility]al [facility] Date /Time/By: 06/08/2019 (0431) : By: DanielCLW Orig Print D/T: S: 019 (0434) PAGE 1 Signed Report - XR CHEST 1 [id number] 04:26:00 FAX: Ari Knowles [phone] [place]: B St: REG FAX: Angelica Garcia [phone] Name: LAKEISHA GIL [facility] : 1945 Age/S: 73/F [address] Unit #: [id number] Loc: MAR[place] [address] Phys: Angelica Patterson MD Acct: [id number] Dis Date: Status: REG ER PHONE #: [phone] Exam Date: 06/08/2019 042 FAX #: [phone] Reason: fall EXAMS: CPT CODE: [id number] XR CHEST 1 V 75129 AFTER HOURS SERVICE ON: 06/08/2019 4:25 AM AP Port able Chest Location Code M12 HISTORY: fall FINDINGS: Study is limited due to shallow inspiration and ro tation. There is mild pulmonary vascular congestion. There are no pleura l effusions. There is no pneumothorax. Cardiac silhouette and mediastinum appear within normal limits. IMPRESSION: Mild pulmonary vascular congestion. at 0426 Reported and signed by: Julio Bates M.D. CC: Ari Heaton; Angelica Patterson MD Technologist: Sarah Caal Trnscrd Date/Time/By: 06/08/2019 (042) : By: [email or web address] Orig Print D/T: S: (0423) PAGE 1 Signed Rep ort - CT C-SPINE W/O [id number] 04:19:00 Name: LAKEISHA GIL [facility] : 1945 Age/S: 73 / F [address] Unit #: [id number] Loc: [place] [address] Phys: Carlos Patterson MD Acct: [id number] Di s Date: Status: REG ER PHONE #: Exam Date: 06/08/2019 0402 FAX #: [phone] Reason: fall EXAMS: CPT CODE: [id number] CT C-SPINE W/ O CONTRAST 70917 DICTATION LOCATION: H48 HISTORY: Female, 73 years of age with fall EXAM: CT SCAN OF CERVICAL SPINE WITHOUT CONTRAST COMPARISON: Previous CT cervical spine 06/06/2019. TECHNIQUE: Helical axial images were o btained through the cervical spine without IV or intrathecal contrast. Ax ial, sagittal, and coronal multiplanar reconstructions were performed. One or more of the following dose reduction techniques were used: Automated e xposure control; adjustment of the mA and/or kV according to the patient s ize; and/or use of iterative reconstruction technique. FINDI NGS: Images are limited by suboptimal patient positioning. No acute fractu re, post-traumatic subluxation or prevertebral soft tissue swelling. Bones are osteopenic with degenerative change throughout the spine. The patient has had posterior fusion of the spinous processes and laminae at C5 and C 6. Incidental note made of mild interstitial opacities in both upper lung zones. C2-3 level: There is mild central canal stenosis. C3- 4 level: There is moderate bilateral foraminal stenosis. C4-5 level: No si gnificant abnormality. C5-6 level: No significant abnormality. C6-7 level: No significant abnormality. C7-T1 level: No significant abnormality . IMPRESSION: 1. No acute fracture or subluxation in th e cervical spine. 2. Degenerative changes and postoperative changes as d escribed. 3. Interstitial opacities in both lung apices. 4. No s ignificant change since prior study. at 0418 Reported and signed by: Purvi Rosas MD CC: Ari Heaton Jessica D MD Technologist:ALIYA HARRIS CT CTDI: DLP: Trnscb Date/Time: 06/08/2019 (0419) Bryce Orig Print D/T: S: 06/08/2019 (0427) PAGE 1 Signed Report - CT HEAD/BRAIN W/O [id number] 04:05:00 Name: LAKEISHA GIL [facility] : 1945 Age/S: 73 [facility] Unit [facility]: [id number] Loc: [place] [address] Phys: Carlos Patterson MD Acct: [id number] Di s Date: Status: REG ER PHONE #: Exam Date: 06/08/2019401 FAX #: [phone] Reason: fall EXAMS: CPT CODE: [id number] CT HEAD/BRAIN W/O CONT 14200 AFTER HOURS SERVICE ON: 08/09/2018 4:[address] Scan of the Brain Without Contrast Location Code M12 History: fall Technique: Scan s were performed on a helical scanner pre IV contrast only. The study is l imited secondary to lack of intravenous contrast, particularly for evaluat ion of masses. One or more of the following dose reduction techni ques were used: Automated exposure control, adjustment of the mA and/or kV according to patient size, and/or utilization of iterative reconstruction technique. Findings: There is no hydrocephal us. Basal cisterns are patent. There is no intracranial hyperdense hemorrh age. There is no midline shift or mass effect. No effacement of the johnson-w vic matter junction to indicate acute infarction. There are chronic [place] white matter changes. There is no skull fracture. Impr ession: No acute intracranial CT findings. Senescent changes. at 0405 Reported and signed by: Julio Bates M.D. CC: Lam Heaton E; Angelica Patterson MD Technologist:ALIYA HARRIS CT CTDI: DLP: Trnscb Date/Time: 06/08/2019 (404) [email or web address] Orig Print D/T: S: 06/08/2019 (040) PAGE 1 Signed Report - CT C-SPINE W/O [id number] 03:34:00 Name: LAKEISHA GIL [facility] : 1945 Age/S: 73 / F [address] [facility] Unit #: [id number] Loc: [place] [address] Phys: Raad Smith MD Acct: [id number] Dis Date: Status: REG ER PHONE #: [phone] Exam Date: 06/06/2019 030 FAX #: [phone] Reason: trauma EXAMS: CPT CODE: [id number] CT C-SPINE W/O CONTRAST 69932 DICTATION LOCATION: H48 HISTORY: Female, 73 years of age with trauma EXAM: CT SCAN OF CERVICAL SPINE WITHOUT CONTRAST COMPARISON: Previous CT cervical spine 05/24/2019. TECHNIQUE: Helical axial images were obtained through the cervical spine without IV or intrathecal contrast. Axial, sagittal, and coronal multiplanar reconstructions were performed. One or more of the following dose reduction techniques were used: Automated exposure control; adjustment of the mA and/or kV according to the patient size; and/or use of iterative reconstruction technique. FINDINGS: Images are moderately degraded by patient motion. No acute fracture, post-traumatic subluxation or prevertebral soft tissue swelling. Bones are osteopenic with degenerative change throughout the spine. The patient has had posterior fusion of the spinous processes and laminae at C5 and C6. Incidental note made of mild interstitial opacities in both upper lung zon es. C2-3 level: There is mild central canal stenosis. C3-4 l evel: There is moderate bilateral foraminal stenosis. C4-5 level: No signi ficant abnormality. C5-6 level: No significant abnormality. C6-7 lev el: No significant abnormality. C7-T1 level: No significant abnormality. IMPRESSION: 1. No acute fracture or subluxation in the c ervical spine. 2. Degenerative changes and postoperative changes as desc ribed. at 03 34 Reported and signed by: Purvi Rosas MD CC: Ari Keith; Raad Smith MD Technologist:HUSSAIN HEARD RT(R),CT CTDI: DLP: Trnscb Date/Time: 06/06/2019 (033) Bryce Orig Print D/T: S: 06/06/2019 (0331) PAGE 1 Signed Report - CT HEAD/BRAIN W/O [id number] 03:26:00 Name: LAKEISHA GIL [facility] : 1945 Age/S: 73 / F [address] [facility] Unit #: [id number] Loc: [place] [address] Phys: Raad Smith MD Acct: [id number] Dis Date: Status: REG ER PHONE #: [phone] Exam Date: 06/06/2019308 FAX #: [phone] Reason: trauma EXAMS: CPT CODE: [id number] CT HEAD/BRAIN W/O CONT 60469 DICTATION LOCATION: H48 HISTORY: Female, 73 years of age with trauma EXAM: CT BRAIN WITHOUT IV CONTRAST COMPARISON: Previous CT brain without contrast 05/24/2019 TECHNIQUE: Transaxial images were obtained through the brain without IV contrast. One or more of the following dose reduction techniques were used: Automated exposure control; adjustment of the mA and/or kV according to the patient size; and/or use of iterative reconstruction technique. FINDINGS: Images degraded by patient motion and streak artifact from dental work. No significant scalp hematoma. There is no acute intra-axial or extra-axial hemorrhage, mass, mass effect or midline shift. No acute loss of the cortical johnson/white junctions is seen. There is diffuse parenchymal atrophy consistent with patient age. Mild periventricular hypodensities are consistent with chronic small vessel ischemic disease. No calvarial fracture is seen. The sinuses and mastoids are clear. IMPRESSION: 1. No acute intracranial hemorrhage, infarct, or mass. 2. Age-related atrophy and chronic small v essel ischemic injuries. Electronically Signed by Purvi Rosas MD o n 06/06/2019 at 0326 Reported and signed by: Purvi jeter MD CC: Ari Heaton; Raad Smith MD echnologist:HUSSAIN GARCIA RT(R),CT CTDI: DLP: Trnscb Date /Time: 06/06/2019 (325) Bryce Orig Print D/T: S: (032) PAGE 1 Signed Report - XR PELVIS 3 + [id number] 11:34:00 FAX: Tavo Aguirre MD [phone] [place]: St: REG FAX: Ari Knowles [phone] Name: LAKEISHA GIL [facility] [place] : 1945 Age/S: 73/F [address] [place] [address] Unit #: [id number] [facility] [phone] Phys: Tavo Sewell MD Acct: [id number] Dis Date: Status: REG RCR PHONE #: [phone] Exam Date: 06/03/2019 1114 FAX #: Reason: fall EXAMS: CPT CODE: [id number] XR PELVIS 3 + V 36530 HISTORY: fall EXAM: AP, inlet, and outlet views o f the pelvis Comparison: CT of the abdomen and pelvis May 17, 2019 FINDINGS: No acute fracture of the bony pelvis is seen. There are degenerative changes in both hips with right-sided acetabular protrusion. Fusion hardware is present in the lumbar spine but incompletely visualized. Visualized hardware demonstrates no lo osening. No widening of the sacroiliac joints or pubic symphysis. Pulse generator projects over the left lower abdominal wall. IMPRESSION: Degenerative changes in the hips with the right sided sarah tabular protrusion but no fracture is evident. Location: [facility] at 1134 Reported and signed by: Arthur Hodgson MD CC: Tavo Bray MD; Ari Heaton Technologist: Raad river RT(R) Trnscrd Date/Time/By: 06/03/2019 (2905) : By: [email or web address] Orig Print D/T: S: 06/03/2019 (2046) PAGE 1 Signed Report BASIC METABOLIC [id number] 07:43:00* Test Item Value Reference Range Interpretation Comments SODIUM (test code = NA) 142 mmol/L 136-145 N POTASSIUM (test code = K) 4.0 mmol/L 3.5-5.1 N CHLORIDE (test code = CL) 104.0 mmol/L 98-107 N CARBON DIOXIDE (test code = CO2) 32.0 mmol/L 21-32 N ANION GAP (test code = GAP) 10.0 10-20 N GLUCOSE (test code = GLU) 86 mg/dL 74-106 N BLOOD UREA NITROGEN (test code = BUN) 14 mg/dL 7-18 N GLOMERULAR FILTRATION RATE (test code = GFR) > 60 mL/min >=60 Estimated GFR by using Modified MDRD formula.Chronic kidney disease is defined as either kidney damageor GFR <60 mL/min/1.73 m2 for >3 months. CREATININE (test code = CREAT) 0.60 mg/dL 0.55-1.02 N Note change in reference range due to change in reagent. BUN/CREATININE RATIO (test code = BUN/CREA) 22.4 10-20 H CALCIUM (test code = CA) 8.9 mg/dL 8.5-10.1 N BASIC METABOLIC [id number] 07:32:00* Test Item Value Reference Range Interpretation Comments SODIUM (test code = NA) 142 mmol/L 136-145 N POTASSIUM (test code = K) 4.0 mmol/L 3.5-5.1 N CHLORIDE (test code = CL) 104.0 mmol/L 98-107 N CARBON DIOXIDE (test code = CO2) mmol/L 21-32 ANION GAP (test code = GAP) 10-20 GLUCOSE (test code = GLU) mg/dL 74-106 BLOOD UREA NITROGEN (test code = BUN) mg/dL 7-18 GLOMERULAR FILTRATION RATE (test code = GFR) mL/min >=60 CREATININE (test code = CREAT) mg/dL 0.55-1.02 BUN/CREATININE RATIO (test code = BUN/CREA) 10-20 CALCIUM (test code = CA) mg/dL 8.5-10.1 CBC W/AUTO [id number] 07:13:00* Test Item Value Reference Range Interpretation Comments WHITE BLOOD CELL (test code = WBC) 5.6 K/mm3 4.5-12.5 N RED BLOOD CELL (test code = RBC) 4.12 mill/mm3 3.7-5.2 N HEMOGLOBIN (test code = HGB) 12.4 gram/dL 11.5-15.5 N HEMATOCRIT (test code = HCT) 39.6 % 36.0-46.0 N MEAN CELL VOLUME (test code = MCV) 96.1 fL 80-98 N MEAN CELL HGB (test code = MCH) 30.1 picogram 27.0-33.0 N MEAN CELL HGB CONCETRATION (test code = MCHC) 31.3 gram/dL 33.0-36. 0 L RED CELL DISTRIBUTION WIDTH (test code = RDW) 13.8 % 11.6-16. 2 N RED CELL DISTRIBUTION WIDTH SD (test code = RDW-SD) 49.3 fL 37 .0-51.0 N PLATELET COUNT (test code = PLT) 234 K/mm3 150-450 N MEAN PLATELET VOLUME (test code = MPV) 10.3 fL 6.7-11.0 N NEUTROPHIL % (test code = NT%) 61.6 % 39.0-69.0 N IMMATURE GRANULOCYTE % (test code = IG%) 0.2 % 0.0-5.0 N LYMPHOCYTE % (test code = LY%) 21.6 % 25.0-55.0 L MONOCYTE % (test code = MO%) 9.8 % 0.0-10.0 N EOSINOPHIL % (test code = EO%) 6.1 % 0.0-5.0 H BASOPHIL % (test code = BA%) 0.7 % 0.0-1.0 N NUCLEATED RBC % (test code = NRBC%) 0.0 % 0-0 N NEUTROPHIL # (test code = NT#) 3.44 K/mm3 1.8-7.7 N IMMATURE GRANULOCYTE # (test code = IG#) 0.01 x10 3/uL 0-0.03 N LYMPHOCYTE # (test code = LY#) 1.21 K/mm3 1.0-5.0 N MONOCYTE # (test code = MO#) 0.55 K/mm3 0-0.8 N EOSINOPHIL # (test code = EO#) 0.34 K/mm3 0.0-0.5 N BASOPHIL # (test code = BA#) 0.04 K/mm3 0.0-0.2 N NUCLEATED RBC # (test code = NRBC#) 0.00 K/mm3 0.0-0.1 N CBC W/AUTO [id number] 07:11:00* Test Item Value Reference Range Interpretation Comments WHITE BLOOD CELL (test code = WBC) K/mm3 4.5-12.5 RED BLOOD CELL (test code = RBC) mill/mm3 3.7-5.2 HEMOGLOBIN (test code = HGB) 12.4 gram/dL 11.5-15.5 N HEMATOCRIT (test code = HCT) 39.6 % 36.0-46.0 N MEAN CELL VOLUME (test code = MCV) fL 80-98 MEAN CELL HGB (test code = MCH) picogram 27.0-33.0 MEAN CELL HGB CONCETRATION (test code = MCHC) gram/dL 33.0-36. 0 RED CELL DISTRIBUTION WIDTH (test code = RDW) % 11.6-16. 2 RED CELL DISTRIBUTION WIDTH SD (test code = RDW-SD) fL 37 .0-51.0 PLATELET COUNT (test code = PLT) K/mm3 150-450 MEAN PLATELET VOLUME (test code = MPV) fL 6.7-11.0 NEUTROPHIL % (test code = NT%) % 39.0-69.0 IMMATURE GRANULOCYTE % (test code = IG%) % 0.0-5.0 LYMPHOCYTE % (test code = LY%) % 25.0-55.0 MONOCYTE % (test code = MO%) % 0.0-10.0 EOSINOPHIL % (test code = EO%) % 0.0-5.0 BASOPHIL % (test code = BA%) % 0.0-1.0 NEUTROPHIL # (test code = NT#) K/mm3 1.8-7.7 LYMPHOCYTE # (test code = LY#) K/mm3 1.0-5.0 MONOCYTE # (test code = MO#) K/mm3 0-0.8 EOSINOPHIL # (test code = EO#) K/mm3 0.0-0.5 BASOPHIL # (test code = BA#) K/mm3 0.0-0.2 [id number] 12:42:00* Test Item Value Reference Range Interpretation Comments TROPONIN-I (test code = TROPI) <0.015 ng/mL 0-0.045 N COMMENTS TO BONE WORKER: COLLECT 3 HOURS AFTER PREVIOUS [id number] 08:59:00* Test Item Value Reference Range Interpretation Comments TROPONIN-I (test code = TROPI) <0.015 ng/mL 0-0.045 N COMMENTS TO BONE WORKER: COLLECT 3 HOURS AFTER PREVIOUS SAMPLEURINALYSIS [id number] 04:23:00* Test Item Value Reference Range Interpretation Comments UA COLOR (test code = COLU) Light-Yellow YELLOW UA APPEARANCE (test code = APPU) CLEAR CLEAR UA GLUCOSE DIPSTICK (test code = DGLUU) NEGATIVE mg/dL NEGATIVE UA BILIRUBIN DIPSTICK (test code = BILU) NEGATIVE mg/dL NEGATIVE UA KETONE DIPSTICK (test code = KETU) NEGATIVE mg/dL NEGATIVE UA SPECIFIC GRAVITY (test code = SGU) 1.029 1.001-1.035 UA BLOOD DIPSTICK (test code = ERICH) Negative mg/dL NEGATIVE UA PH DIPSTICK (test code = HEATHER) 6.5 5.0-8.0 UA PROTEIN DIPSTICK (test code = PROU) NEGATIVE mg/dL NEGATIVE UA UROBILINIOGEN DIPSTICK (test code = URO) Normal mg/dL NEGATIVE UA NITRITE DIPSTICK (test code = LESLI) NEGATIVE NEGATIVE UA LEUKOCYTE ESTERASE W REFLEX (test code = LEUUR) NEGATIVE Marquez/uL NEGATIVE UA WBC (test code = WBCU) 0-5 per HPF 0-5 UA RBC (test code = RBCU) 0-2 #/HPF 0-5 UA EPITHELIAL CELLS (test code = EPIU) FEW per HPF FEW UA BACTERIA (test code = BACU) FEW #/HPF NONE A UA AMORPHOUS SEDIMENT (test code = AMORU) FEW #/LPF NONE Urine Source? Clean CatchBASIC METABOLIC [id number] 00:13:00* Test Item Value Reference Range Interpretation Comments SODIUM (test code = NA) 140 mmol/L 136-145 N POTASSIUM (test code = K) 3.8 mmol/L 3.5-5.1 N CHLORIDE (test code = CL) 102.0 mmol/L 98-107 N CARBON DIOXIDE (test code = CO2) 32.0 mmol/L 21-32 N ANION GAP (test code = GAP) 9.8 10-20 L GLUCOSE (test code = GLU) 87 mg/dL 74-106 N BLOOD UREA NITROGEN (test code = BUN) 21 mg/dL 7-18 H GLOMERULAR FILTRATION RATE (test code = GFR) > 60 mL/min >=60 Estimated GFR by using Modified MDRD formula.Chronic kidney disease is defined as either kidney damageor GFR <60 mL/min/1.73 m2 for >3 months. CREATININE (test code = CREAT) 0.70 mg/dL 0.55-1.02 N Note change in reference range due to change in reagent. BUN/CREATININE RATIO (test code = BUN/CREA) 30.2 10-20 H CALCIUM (test code = CA) 8.5 mg/dL 8.5-10.1 N HEPATIC FUNCTION [id number] 00:13:00* Test Item Value Reference Range Interpretation Comments TOTAL PROTEIN (test code = PROT) 7.5 gram/dL 6.4-8.2 N ALBUMIN (test code = ALB) 3.5 g/dL 3.4-5.0 N GLOBULIN (test code = GLOB) 4.0 gram/dL 2.7-4.2 N ALBUMIN/GLOBULIN RATIO (test code = A/G) 0.9 0.75-1.50 N BILIRUBIN TOTAL (test code = BILT) 0.20 mg/dL 0.0-1.0 N BILIRUBIN DIRECT (test code = BILD) 0.09 mg/dL 0.0-0.20 N SGOT/AST (test code = AST) 13 IUnit/L 15-37 L SGPT/ALT (test code = ALT) 24 IUnit/L 12-78 N ALKALINE PHOSPHATASE TOTAL (test code = ALKP) 127 IUnit/L 45-117 H Note change in reference range due to change in reagent. [id number] 00:13:00* Test Item Value Reference Range Interpretation Comments LIPASE (test code = LIP) 194 U/L 73.0-393.0 N [id number] 00:13:00* Test Item Value Reference Range Interpretation Comments TROPONIN-I (test code = TROPI) <0.015 ng/mL 0-0.045 N BASIC METABOLIC [id number] 00:00:00* Test Item Value Reference Range Interpretation Comments SODIUM (test code = NA) 140 mmol/L 136-145 N POTASSIUM (test code = K) 3.8 mmol/L 3.5-5.1 N CHLORIDE (test code = CL) 102.0 mmol/L 98-107 N CARBON DIOXIDE (test code = CO2) 32.0 mmol/L 21-32 N ANION GAP (test code = GAP) 9.8 10-20 L GLUCOSE (test code = GLU) 87 mg/dL 74-106 N BLOOD UREA NITROGEN (test code = BUN) 21 mg/dL 7-18 H GLOMERULAR FILTRATION RATE (test code = GFR) > 60 mL/min >=60 Estimated GFR by using Modified MDRD formula.Chronic kidney disease is defined as either kidney damageor GFR <60 mL/min/1.73 m2 for >3 months. CREATININE (test code = CREAT) 0.70 mg/dL 0.55-1.02 N Note change in reference range due to change in reagent. BUN/CREATININE RATIO (test code = BUN/CREA) 30.2 10-20 H CALCIUM (test code = CA) 8.5 mg/dL 8.5-10.1 N HEPATIC FUNCTION [id number] 00:00:00* Test Item Value Reference Range Interpretation Comments TOTAL PROTEIN (test code = PROT) 7.5 gram/dL 6.4-8.2 N ALBUMIN (test code = ALB) 3.5 g/dL 3.4-5.0 N GLOBULIN (test code = GLOB) 4.0 gram/dL 2.7-4.2 N ALBUMIN/GLOBULIN RATIO (test code = A/G) 0.9 0.75-1.50 N BILIRUBIN TOTAL (test code = BILT) mg/dL 0.0-1.0 BILIRUBIN DIRECT (test code = BILD) 0.09 mg/dL 0.0-0.20 N SGOT/AST (test code = AST) 13 IUnit/L 15-37 L SGPT/ALT (test code = ALT) 24 IUnit/L 12-78 N ALKALINE PHOSPHATASE TOTAL (test code = ALKP) 127 IUnit/L 45-117 H Note change in reference range due to change in reagent. [id number] 00:00:00* Test Item Value Reference Range Interpretation Comments LIPASE (test code = LIP) 194 U/L 73.0-393.0 N [id number] 00:00:00* Test Item Value Reference Range Interpretation Comments TROPONIN-I (test code = TROPI) <0.015 ng/mL 0-0.045 N - CT CHEST [id number] 00:00:00 Name: LAKEISHA GIL [facility] : 1945 Age/S: 73 / F [address] [facility] Unit #: [id number] Loc: [place] [address] Phys: Juan R Cuevas MD Acct: [id number] Dis Date: Status: REG ER PHONE #: [phone] Exam Date: 05/24/2019 2330 FAX #: [phone] Reason: severe cp, questionable syncope EXAMS: CPT CODE: [id number] CT CHEST W/CONTRAST 16615 EXAM: CTA thoracic aorta with IV contrast CLINICAL INFORMATION: Chest pain and syncope TECHNIQUE: CT angiography of the chest was performed after administration of IV contrast per protocol including reformats. Coronal MIP imaging was performed. MPR analysis and 3D volume rendered reformats were generated on an independent work station. Comparison: none Location: R16 FINDINGS: Lines and Tubes: None Aorta: Limited evaluation of the aortic roots secondary to cardiac motion. The remainder of the thoracic aorta is unremarkable; specifically no aneurysmal dilation or dissection is seen. Pulmonary arteries: Evaluation of the pulmonary arteries is limited secondary to aortic phase of contrast. Mild dilation of the main pulmonary artery to 3.4 cm may reflect pulmonary artery hypertension Mediastinum and Vasculature: Mildly prominent with several nodes measuring up to 1 cm in short axis There is no cardiac chamber enlargement Airway s/Pleura/Lungs: Bibasilar atelectasis is evaluation. There are nonspecifi c small peripheral nodular consolidations seen within the right lower lobe which can be followed up in 1 month Bones and Soft tissues: Posts urgical changes of the lower thoracic spine are noted. Abdom en: The liver, spleen, kidneys, adrenals, and pancreas are unremarkable. The gallbladder is surgically absent.. No bowel obstruction is seen. No as cites or pneumoperitoneum IMPRESSION: 1. No ev idence of aortic aneurysm or dissection 2. There are nonspecific small p eripheral nodular consolidations seen PAGE 1 Signed R eport (CONTINUED) Name: LAKEISHA GIL [facility] : 1945 Age/S: 73 / F [address] [facility] Unit #: [id number] Loc: [place] [address] Phys: Juan R Cuevas MD Acct: [id number] Dis Date: Status: REG ER PHONE #: [phone] Exam Date: 05/24/2019 2330 FAX #: [phone] Reason: severe cp, questionable sy ncope EXAMS: C PT CODE: [id number] CT CHEST W/CONTRAST 63042 <Continued> within the right lower lobe which can be followed up in 1 month 3.Evaluation of the pulmonary arteries is limited secondary to aortic phase of contrast. 4. Additional findings as detailed above at 0000 Reported and signed by: Estrella Ching M.D. CC: Juan R Cuevas MD; Ari Heaton Technologist:ALEXANDRA ESPINOSA RTTanika MOREL CTDI: DLP: Trnscb Date/Time: 05/25/2019 (0000) [email or web address] Orig Print D/T: S: 05/25/2019 (0003) PAGE 2 Signed Report - XR L-SPINE 2/3 [id number] 23:57:00 FAX: Juan R Cuevas MD [place]: B St: [facility] FAX: Y Ari Heaton [phone] Name: LAKEISHA GIL [facility] : 1945 Age/S: 73/F [address] [facility] Unit #: [id number] Loc: [place] [address] Phys: Juan R Cuevas MD Acct: [id number] Dis Date: Status: REG ER PHONE #: [phone] Exam Date: 05/24/2019 2352 FAX #: [phone] Reason: BACK PAIN EXAMS: CPT CODE: [id number] XR L-SPINE 2/3 VIEWS 08603 EXAM: - XR T-SPINE 3 VIEWS, - XR L-SPINE 2/3 VIEWS HISTORY: BACK PAIN Location code:C3 COMPARISON: 1 07/17/2018 FINDINGS: AP, lateral, and swimmers lateral view o f the thoracic spine is provided. 2 AP and one lateral view of the lumbar spine are provided. Extensive thoracolumbar orthopedic hardware is again seen with spinal stimulator device and cholecystectomy clips. Visualized hardware appears intact and fully engaged. The exam is limited by patien t's body habitus and extensive hardware. Vertebral bodies are not well seen and compression fracture would be difficult to exclude. Multilev el degenerative features are present. IMPRESSION: 1. Li mited exam as above. at 1150 Reported and signed by: Eloy Encarnacion M.D. CC: Juan R Cuevas MD; Ari Heaton Technologist : Sarah Caal [facility] Date/Time/By: 1 07/25/2018 (6947) : By: [email or web address] Orig Print D/T: S: 05/25/2019 (0000) PAGE 1 Signed Report - XR T-SPINE 3 [id number] 23:57:00 FAX: Juan R Cuevas MD [place]: B St: REG FAX: Y Ari Heaton [phone] Name: LAKEISHA GIL [facility] : 1945 Age/S: 73/F [address] Unit #: [id number] Loc: [place] [address] Phys: Juan R Cuevas MD Acct: [id number] Dis Date: Status: REG ER PHONE #: [phone] Exam Date: 05/24/2019 2352 FAX #: [phone] Reason: BACK PAIN EXAMS: CPT CODE: [id number] XR T-SPINE 3 VIEWS 89868 EXAM: - XR T-SPINE 3 VIEWS, - XR L-SPINE 2/3 VIEWS HISTORY: BACK PAIN Location code:C3 COMPARISON: 1 07/17/2018 FINDINGS: AP, lateral, and swimmers lateral view o f the thoracic spine is provided. 2 AP and one lateral view of the lumbar spine are provided. Extensive thoracolumbar orthopedic hardware is again seen with spinal stimulator device and cholecystectomy clips. Visualized hardware appears intact and fully engaged. The exam is limited by patien t's body habitus and extensive hardware. Vertebral bodies are not well seen and compression fracture would be difficult to exclude. Multilev el degenerative features are present. IMPRESSION: 1. Li bisid exam as above. at 3883 Reported and signed by: Eloy Encarnacion M.D. CC: Juan R Cuevas MD; Ari Heaton Technologist : Sarah Caal Trnscrd Date/Time/By: 1 07/25/2018 (1576) : By: [email or web address] Orig Print D/T: S: 05/25/2019 (0000) PAGE 1 Signed Report - CT C-SPINE W/O [id number] 23:50:00 Name: LAKEISHA GIL [facility] : 1945 Age/S: 73 / F [address] [facility] Unit #: [id number] Loc: [place] [address] Phys: Haseeb Cuevas MD Acct: [id number] Di s Date: Status: REG ER PHONE #: Exam Date: 05/24/2019 2320 FAX #: Reason: Neck Pain EXAMS: CPT CODE: [id number] CT C-SPINE W/ O CONTRAST 31533 CT of the brain without c ontrast and cervical spine History: Headache Techniq ue: Contiguous axial images were obtained from the skull base to the verte x without the administration of intravenous contrast. Contiguous axial CT images were obtained from the vertex through T1 without contrast. Coronal and sagittal reformatted images of the cervical spine were also performed. One or more of the following dose reduction techniques were used: Automat ed exposure control, adjustment of the mA and/or kV according to patient s ize, and/or utilization of iterative reconstruction technique. Number 2018. Findings: CT brain: There is prominence of the ventricles and sulci consistent with modera te supratentorial cerebral volume loss. The basilar cisterns are patent. There is no intracranial hemorrhage or mass effect. No in tra-axial or extra-axial fluid collections are seen. There are diffuse periventricular and subcortical white matter hypodensities wh ich are nonspecific, but likely the sequelae of chronic microvascular isch emia. The visualized paranasal sinuses and mastoid air cells are clear. CT cervical spine: The cervical spin e is visualized from the skull base through T1. Postsurgical changes of C 6-C7 are again seen. Dextroscoliosis within the lower cervical spine is a gain noted No evidence of acute fracture is demonstrated. No prevertebral soft tissue swelling is noted. Extensive multilevel degenerative changes a re seen. Impression: No acute intracranial he mmorhage or significant mass effect PAGE 1 Signed Rep ort (CONTINUED) Name: LAKEISHA GIL [facility] : 1945 Age/S: 73 / F [address] [facility] Unit #: [id number] Loc: [place] [address] Phys: Juan R Cuevas MD Acct: [id number] Dis Date: Status: REG ER PHONE #: [phone] Exam Date: 05/24/2019 2320 FAX #: [phone] Reason: Neck Pain EXAMS: CPT CODE: [id number] CT C-SPINE W/O CONTRAST 70012 <Continued> No evidence of acute osseous cervical fracture or traumatic subluxation Additional findings as above. at 5340 Reported and signed by: Estrella Ching M.D. CC: Juan R Cuevas MD; Ari Heaton Technologist:ALEXANDRA ESPINOSA RT; ALIYA MOREL CTDI: DLP: Trnscb Date/Time: 05/24/2019 (2349) [email or web address] Orig Print D/T: S: 05/24/2019 (1568) PAGE 2 Signed Report - CT HEAD/BRAIN W/O [id number] 23:50:00 Name: LAKEISHA IGL [facility] : 1945 Age[facility]S: 73 [facility] [address] [facility] [id number] Loc: [place] [address] Phys: Haseeb Cuevas MD Acct: [id number] Di s Date: Status: REG ER PHONE #: [phone] Exam Date: 05/24/2019 2310 FAX #: Reason: HEADACHE EXAMS: CPT CODE: [id number] CT HEAD/BRAIN W/O CONT 54907 CT of the brain without c ontrast and cervical spine History: Headache Techniq ue: Contiguous axial images were obtained from the skull base to the verte x without the administration of intravenous contrast. Contiguous axial CT images were obtained from the vertex through T1 without contrast. Coronal and sagittal reformatted images of the cervical spine were also performed. One or more of the following dose reduction techniques were used: Automat ed exposure control, adjustment of the mA and/or kV according to patient s ize, and/or utilization of iterative reconstruction technique. Number 2018. Findings: CT brain: There is prominence of the ventricles and sulci consistent with modera te supratentorial cerebral volume loss. The basilar cisterns are patent. There is no intracranial hemorrhage or mass effect. No in tra-axial or extra-axial fluid collections are seen. There are diffuse periventricular and subcortical white matter hypodensities wh ich are nonspecific, but likely the sequelae of chronic microvascular isch emia. The visualized paranasal sinuses and mastoid air cells are clear. CT cervical spine: The cervical spin e is visualized from the skull base through T1. Postsurgical changes of C 6-C7 are again seen. Dextroscoliosis within the lower cervical spine is a gain noted No evidence of acute fracture is demonstrated. No prevertebral soft tissue swelling is noted. Extensive multilevel degenerative changes a re seen. Impression: No acute intracranial he mmorhage or significant mass effect PAGE 1 Signed Rep ort (CONTINUED) Name: LAKEISHA GIL [facility] : 1945 Age/S: 73 / F [address] [place] Unit #: [id number] Loc: [place] [address] Phys: Juan R Cuevas MD Acct: [id number] Dis Date: Status: REG ER PHONE #: [phone] Exam Date: 05/24/2019 2310 FAX #: [phone] Reason: HEADACHE EXAMS: CPT CODE: [id number] CT HEAD/BRAIN W/O CONT 71897 <Continued> No evidence of acute osseous cervical fracture or traumatic subluxation Additional findings as above. at 3980 Reported and signed by: Estrella Ching M.D. CC: Juan R Cuevas MD; Ari Heaton Technologist:ALEXANDRA ESPINOSA RT; ALIYA MOREL CTDI: DLP: Trnscb Date/Time: 05/24/2019 (2349) [email or web address] Orig Print D/T: S: 05/24/2019 (5528) PAGE 2 Signed Report BASIC METABOLIC [id number] 23:48:00* Test Item Value Reference Range Interpretation Comments SODIUM (test code = NA) 140 mmol/L 136-145 N POTASSIUM (test code = K) 3.8 mmol/L 3.5-5.1 N CHLORIDE (test code = CL) 102.0 mmol/L 98-107 N CARBON DIOXIDE (test code = CO2) mmol/L 21-32 ANION GAP (test code = GAP) 10-20 GLUCOSE (test code = GLU) mg/dL 74-106 BLOOD UREA NITROGEN (test code = BUN) mg/dL 7-18 GLOMERULAR FILTRATION RATE (test code = GFR) mL/min >=60 CREATININE (test code = CREAT) mg/dL 0.55-1.02 BUN/CREATININE RATIO (test code = BUN/CREA) 10-20 CALCIUM (test code = CA) mg/dL 8.5-10.1 HEPATIC FUNCTION [id number] 23:48:00* Test Item Value Reference Range Interpretation Comments TOTAL PROTEIN (test code = PROT) gram/dL 6.4-8.2 ALBUMIN (test code = ALB) g/dL 3.4-5.0 GLOBULIN (test code = GLOB) gram/dL 2.7-4.2 ALBUMIN/GLOBULIN RATIO (test code = A/G) 0.75-1.50 BILIRUBIN TOTAL (test code = BILT) mg/dL 0.0-1.0 BILIRUBIN DIRECT (test code = BILD) mg/dL 0.0-0.20 SGOT/AST (test code = AST) IUnit/L 15-37 SGPT/ALT (test code = ALT) IUnit/L 12-78 ALKALINE PHOSPHATASE TOTAL (test code = ALKP) IUnit/L 45-117 [id number] 23:48:00* Test Item Value Reference Range Interpretation Comments LIPASE (test code = LIP) U/L 73.0-393.0 [id number] 23:48:00* Test Item Value Reference Range Interpretation Comments TROPONIN-I (test code = TROPI) ng/mL 0-0.045 PROTHROMBIN [id number] 23:32:00* Test Item Value Reference Range Interpretation Comments PROTHROMBIN TIME PATIENT (test code = PTP) 12.0 seconds 9.0-14.0 N INTERNATIONAL NORMAL RATIO (test code = INR) 1.0 0.8-1.2 N The therapeutic range for oral anticoagulant therapy formost indications is an international normalized ratio (INR)of between 2.0 and 3.0. The recommended therapeutic INRrange for various clinical situations is listed below: Clinical Situation INR range Pulmonary e mbolism treatment (2.0-3.0)Venous thrombosis treatmentVenous thrombosis prophylaxis (high risk surgery)Prevention of systemic embolism from: Acute myocardial infarction Valvular heart disease Atrial fibrillation Mechanical prosthetic heart valves (2.5-3.5) IS PATIENT ON ANTICOAGULANTS? NTHROMBOPLASTIN TIME [id number] 23:32:00* Test Item Value Reference Range Interpretation Comments THROMBOPLASTIN TIME PARTIAL (test code = PTT) 31.4 seconds 25.0-36. 5 N IS PATIENT ON ANTICOAGULANTS? NCBC W/O [id number] 23:20:00* Test Item Value Reference Range Interpretation Comments WHITE BLOOD CELL (test code = WBC) K/mm3 4.5-12.5 RED BLOOD CELL (test code = RBC) mill/mm3 3.7-5.2 HEMOGLOBIN (test code = HGB) 12.7 gram/dL 11.5-15.5 N HEMATOCRIT (test code = HCT) 41.7 % 36.0-46.0 N MEAN CELL VOLUME (test code = MCV) fL 80-98 MEAN CELL HGB (test code = MCH) picogram 27.0-33.0 MEAN CELL HGB CONCETRATION (test code = MCHC) gram/dL 33.0-36. 0 RED CELL DISTRIBUTION WIDTH (test code = RDW) % 11.6-16. 2 PLATELET COUNT (test code = PLT) K/mm3 150-450 MEAN PLATELET VOLUME (test code = MPV) fL 6.7-11.0 CBC W/O [id number] 23:20:00* Test Item Value Reference Range Interpretation Comments WHITE BLOOD CELL (test code = WBC) 7.1 K/mm3 4.5-12.5 N RED BLOOD CELL (test code = RBC) 4.24 mill/mm3 3.7-5.2 N HEMOGLOBIN (test code = HGB) 12.7 gram/dL 11.5-15.5 N HEMATOCRIT (test code = HCT) 41.7 % 36.0-46.0 N MEAN CELL VOLUME (test code = MCV) 98.3 fL 80-98 H MEAN CELL HGB (test code = MCH) 30.0 picogram 27.0-33.0 N MEAN CELL HGB CONCETRATION (test code = MCHC) 30.5 gram/dL 33.0-36. 0 L RED CELL DISTRIBUTION WIDTH (test code = RDW) 13.5 % 11.6-16. 2 N PLATELET COUNT (test code = PLT) 263 K/mm3 150-450 N MEAN PLATELET VOLUME (test code = MPV) 9.8 fL 6.7-11.0 N - CT L-SPINE W/O [id number] 05:23:00 Name: LAKEISHA GIL [facility] : 1945 Age/S: 73 / F [address] [place] Unit #: [id number] Loc: [place] [address] Phys: Gonsalo Garcia MD Acct: [id number] Dis Date: Status: REG ER PHONE #: [phone] Exam Date: 05/17/2019 050 FAX #: [phone] Reason: Fall, pain EXAMS: CPT CODE: [id number] CT L-SPINE W/O CONTRAST 30838 Location: T 18 CT thoracic and lumbar spine conducted on 05/17/19 TECHNIQUE: CT examination of the thoracic and lumbosacral spine was performed obtaining 2.5 mm contiguous slice thickness in the axial plane from T12 to S1 with reformatted imaging in the sagittal and coronal plane. This was acquired using MPR software on the CT workstation with 2D reformatted images acquired . The examination was performed on an updated helical CT scanner utilizing low-dose radiation technique. Automatic exposure control was utilized to reduce radiation dose CLINICAL HISTORY: Fall, thoracic and lumbar pain COMPARISON EXAM : CT examination of the bony pelvis conducted at the same time. The exam is also being correlated with CT examination of the lumbar spine of 03/22/18 and to the plain film exam of the thoracic spine conducted 04/23/19 FINDINGS: There is extensive postoperative changes in the thoracic and lumbar spine with Longoria rods and fusion. Do not see an acute fracture in this patient. There is presence of dextroscoliosis in the thoracic region and lumbar levoscoliosis. Appearance appears similar to the plain film exam acquired 04/23/18. Th ere is presence of a bilateral sacral fracture having somewhat sclerotic m argins possibly subacute in age and extending into the sacral foramina con sistent with a Addy zone type II fracture. There is even a component pos sibly extending into the sacral body on image #199 of series 3 of concern for a zone 3 type component. Mild irregularity involving the SI joints lik penny degenerative. Fusion masses extend downwards into the lumbar spine marshal n to L5-S1 appearing fairly solid. No acute lumbar fracture. IMPRESSION: PAGE 1 Signed Report (CONTINUED) Name: LAKEISHA GIL [facility] : 1945 Age/S: 73 / F [address] Unit #: [id number] Loc: [place] [address] Phys: Gonsalo Garcia MD Acct: [id number] Dis Date: Status: REG ER PHONE #: [phone] Exam Date: 05/17/2019501 FAX #: [phone] Reason: Fall, pain EXAMS: CPT CODE: [id number] CT L-SPINE W/O CONTRAST 05350 < Continued> Bilateral sacral insufficiency type fractures appearing to extend into the sacral foramina consistent with at least a Addy zone type II fracture with probable component extending into the body of the sacrum of concern for a zone 3 type component. This fracture may be subacute in age with somewhat sclerotic margins. Extensive postoperative changes in the thoracic and lumbar spine without acute fracture of the thoracic or lumbar spine at 0523 Reported and signed by: Violeta Sullivan M.D. CC: Ari Heaton Evan MD Technologist:AILYA ZARATE CTDI: DLP: Trnscb Date/Time: 05/17/2019 (522) [email or web address] Orig Print D/T: S: 05/17/2019 (0526) PAGE 2 Signed Report - CT T-SPINE W/O [id number] 05:23:00 Name: LAKEISHA GIL [facility] : 1945 Age/S: 73 / F [address] Unit #: [id number] Loc: [place] [address] Phys: Gonsalo Garcia MD Acct: [id number] Dis Date: Status: REG ER PHONE #: [phone] Exam Date: 05/17/2019 050 FAX #: [phone] Reason: Fall, pain EXAMS: CPT CODE: [id number] CT T-SPINE W/O CONTRAST 87998 Location: T 18 CT thoracic and lumbar spine conducted on 05/17/19 TECHNIQUE: CT examination of the thoracic and lumbosacral spine was performed obtaining 2.5 mm contiguous slice thickness in the axial plane from T12 to S1 with reformatted imaging in the sagittal and coronal plane. This was acquired using MPR software on the CT workstation with 2D reformatted images acquired . The examination was performed on an updated helical CT scanner utilizing low-dose radiation technique. Automatic exposure control was utilized to reduce radiation dose CLINICAL HISTORY: Fall, thoracic and lumbar pain COMPARISON EXAM : CT examination of the bony pelvis conducted at the same time. The exam is also being correlated with CT examination of the lumbar spine of 03/22/18 and to the plain film exam of the thoracic spine conducted 04/23/19 FINDINGS: There is extensive postoperative changes in the thoracic and lumbar spine with Longoria rods and fusion. Do not see an acute fracture in this patient. There is presence of dextroscoliosis in the thoracic region and lumbar levoscoliosis. Appearance appears similar to the plain film exam acquired 04/23/18. There is presence of a bilateral sacral fracture having somewhat sclerotic margins possibly subacute in age and extending into the sacral foramina consistent with a Addy zone type II fracture. There is even a component possibly extending into the sacral body on image #199 of series 3 of concern for a zone 3 type component. Mild irregularity involving the SI joints likely degenerative. Fusion masses extend downwards into the lumbar spine down to L5-S1 appearing fairly solid. No acute lumbar fracture. IMPRESSION: PAGE 1 Signed Report (CONTINUED) Name: LAKEISHA GIL [facility] : 1945 Age/S: 73 / F [address] [facility] Unit #: [id number] Loc: [place] [address] Phys: Gonsalo Garcia MD Acct: [id number] Dis Date: Status: REG ER PHONE #: [phone] Exam Date: 05/17/2019 0502 FAX #: [phone] Reason: Fall, pain EXAMS: CPT CODE: [id number] CT T-SPINE W/O CONTRAST 72625 < Continued> Bilateral sacral insufficiency type fractures appearing to extend into the sacral foramina consistent with at least a Addy zone type II fracture with probable component extending into the body of the sacrum of concern for a zone 3 type component. This fracture may be subacute in age with somewhat sclerotic margins. Extensive postoperative changes in the thoracic and lumbar spine without acute fracture of the thoracic or lumbar spine at 0523 Reported and signed by: Violeta Sullivan M.D. CC: Ari Heaton Evan MD Technologist:ALIYA ZARATE CTDI: DLP: Trnscb Date/Time: 05/17/2019 (522) [email or web address] Orig Print D/T: S: 05/17/2019 (6365) PAGE 2 Signed Report - CT PELVIS W/O [id number] 05:15:00 Name: LAKEISHA GIL [facility] : 1945 Age/S: 73 / F [address] [facility] Unit #: [id number] Loc: [place] [address] Phys: Ary Garcia MD Acct: [id number] Di s Date: Status: REG ER PHONE #: Exam Date: 05/17/2019 0502 FAX #: Reason: R/O occult pelvic/hip fracture, pain EXAMS: CPT CODE: [id number] CT PELVIS W/O CONTRAST 00406 Location: T 18 CT of the pelvis, 05/17/19 CLINICAL HISTORY: Assess for occ ult pelvic fracture. Fall, pelvic and hip pain. Emergency room presentatio n Comparison exam: Hip x-ray exam of pelvic x-ray exam 05/17/19 TECHNIQUE: A CT scan of the pelvis conducted scanning in t he axial plane acquiring contiguous 2.5 mm axial thickness from the pelvic inlet to the proximal metaphysis of the femurs. There is acquisition of 2D coronal and sagittal reformatted images acquired. This was acquire d on CT workstation using MPR software. The examination was performed on a updated helical CT scanner with low-dose radiation technique. Automatic exposure control utilized to reduce radiation dose. FINDIN GS: Significant degenerative changes involving the right hip join t without fracture. No diastases. There is however presence of a bilateral sacral insufficiency type fracture with areas of bony sclerosis timi earing to extend into the sacral foramina felt to be reflective a Addy z one type II sacral fracture. These fractures may be subacute in age with somewhat sclerotic margins. No aggressively destructive osseous process. H erniation of a bowel loop through a defect ventrally in the pelvic abdomin al wall. IMPRESSION: Addy zone type II sacr al insufficiency type fractures involving the sacral alae bilaterally Significant degenerative changes involving the right hip joint. No fracture of the acetabulum or right hip. Ventral w all hernia containing a loop of of bowel without obstruction suspected PAGE 1 Signed Report (CONTINUE D) Name: [facility] : 1945 Age/S: 73 / F [address] [facility] Unit [facility]: [id number] Loc: [place] [address] Phys: Gonsalo Garcia MD Acct: [id number] Dis Date: Status: REG ER PHONE # : [phone] Exam Date: 05/17/2019 0502 FAX #: Reason: R/O occult pelvic/hip fracture, pain EXAMS: CPT CODE: [id number] CT PELVIS W/O CONTRAST 85954 <Continued> at 0515 Reported and signed by: Violeta Barron M.D. CC: Ari Heaton; Gonsalo Garcia MD Technologist:ALIYA HARRIS CT CTDI: DLP: Trnscb Date/Time: 05/17/2019 (514) [email or web address] Orig Print D/T: S: 05/17/2019 (517) PAGE 2 Signed Report - XR SHOULDER 2 + V [id number] 03:50:00 FAX: Gonsalo Garcia MD [place]: B St: REG Name: LAKEISHA MCKEON [facility] : 07/30/18 [birth year] Age/S: 73/F [address] Unit #: [id number] Loc: [place] [address] Phys: Gonsalo Garcia MD Acct: [id number] Dis Date: Status: REG ER PHONE #: [phone] Exam Date: 05/17/2019 0326 FAX #: [phone] Reason: SHOULDER PAIN EXAMS: CPT CODE: [id number] XR SHOULDER 2 + [place] [address] Location: T 18 Left shoulder x-ray exam, 3 views conducted on 05/17/19 CLINICAL HISTOR Y: Fall, shoulder pain. Left shoulder arthroplasty changes is seen . Do not see a definite acute fracture or subluxation. No loosening of the prosthesis. AP view the pelvis, 2 views and 2 views of the right hip, 05/17/19 Comparison exam: 02/20/19 pelvic x-ray exam and righ t hip x-ray exam Mild chronic appearing deformity at the junction of the femoral head and neck appearing similar to the prior exam without d efinite fracture of the femur. Subtle lucency seen through the acetabulum on image #2 of series. This may be artifactual but consideration of CT exa m is advised to exclude acetabular fracture with this finding not seen on the prior exam. No diastases. IMPRESSION: Possible acetabular fracture with subtle lucency identified on image # 2 of the right hip joint. Consideration of CT exam would be advised at 0350 Reported an d signed by: Violeta Barron M.D. CC: Gonsalo Garcia MD Technologist: Sarah Caal Trnscrd Date/Time/By: 05/17/2019 (0350) : By: [email or web address] Orig Print D/T: S: 05/17/2019 (0353) PAGE 1 Signed Report - XR HIP W/PEL UNI 2+V [id number] 03:50:00 FAX: Gonsalo Garcia MD [place]: St: REG Name: LAKEISHA MCKEON [facility] : [birth year] Age/S: 73/F [address] Unit #: [id number] Loc: [place] [address] Phys: Gonsalo Garcia MD Acct: [id number] Dis Date: Status: REG ER PHONE #: [phone] Exam Date: 05/17/2019 0326 FAX #: [phone] Reason: HIP PAIN EXAMS: CPT CODE: [id number] XR HIP W/PEL UNI 2+V R T 26951 Location: T 18 Left shoulder x-ray exam, 3 views conducted on 05/17/19 CLINICAL HISTOR Y: Fall, shoulder pain. Left shoulder arthroplasty changes is seen . Do not see a definite acute fracture or subluxation. No loosening of the prosthesis. AP view the pelvis, 2 views and 2 views of the right hip, 05/17/19 Comparison exam: 02/20/19 pelvic x-ray exam and righ t hip x-ray exam Mild chronic appearing deformity at the junction of the femoral head and neck appearing similar to the prior exam without d efinite fracture of the femur. Subtle lucency seen through the acetabulum on image #2 of series. This may be artifactual but consideration of CT exa m is advised to exclude acetabular fracture with this finding not seen on the prior exam. No diastases. IMPRESSION: Possible acetabular fracture with subtle lucency identified on image # 2 of the right hip joint. Consideration of CT exam would be advised at 0350 Reported an d signed by: Violeta Barron M.D. CC: Gonsalo Garcia MD Technologist: Sarah Caal Trnscrd Date/Time/By: 05/17/2019 (0350) : By: [email or web address] Orig Print D/T: S: 05/17/2019 (0354) PAGE 1 Signed Report - XR KNEE 3 V [id number] 03:38:00 FAX: Gonsalo Garcia MD [place]: St: REG Name: LAKEISHA MCKEON [facility] : [birth year] Age/S: 73/F [address] Unit #: [id number] Loc: [place] [address] Phys: Gonsalo Garcia MD Acct: [id number] Dis Date: Status: REG ER PHONE #: [phone] Exam Date: 05/17/2019325 FAX #: [phone] Reason: KNEE PAIN EXAMS: CPT CODE: [id number] XR KNEE 3 V 34023 Location: [address] knee x-ray exam, 3 views of each knee conducted on 05/17/19 C LINICAL HISTORY: Trauma, fall, knee pain. Patient The patient is o steopenic. No definite fracture, subluxation or abnormal joint effusion at 0338 R eported and signed by: Violeta Barron M.D. CC: Gonsalo Garcia MD Technologist: Shelbi Caal Trnhird Date/Time/By: 05/17/20 19 (0338) : By: [email or web address] Orig Print D/T: S: 05/17/2019 (0344) PAGE 1 Signed Report - XR KNEE 3 V [id number] 03:38:00 FAX: Gonsalo Garcia MD [place]: St: REG Name: LAKEISHA MCKEON [facility] : [birth year] Age/S: 73/F [address] Unit #: [id number] Loc: [place] [address] Phys: Gonsalo Garcia MD Acct: [id number] Dis Date: Status: REG ER PHONE #: [phone] Exam Date: 05/17/2019 0326 FAX #: [phone] Reason: KNEE PAIN EXAMS: CPT CODE: [id number] XR KNEE 3 V RT [address] Location: T 18 [facility] knee x-ray exam, 3 views of each knee conducted on 05/17/19 C LINICAL HISTORY: Trauma, fall, knee pain. Patient The patient is o steopenic. No definite fracture, subluxation or abnormal joint effusion at 0338 R eported and signed by: Violeta Barron M.D. CC: Gonsalo Garcia MD Technologist: Shelbi Caal Trnhird Date/Time/By: 05/17/20 (0338) : By: [email or web address] Orig Print D/T: S: 05/17/2019 (0341) PAGE 1 Signed Report - XR CHEST 1 [id number] 03:36:00 FAX: Gonsalo Garcia MD [place]: St: REG Name: LAKEISHA MCKEON [facility] : [birth year] Age/S: 73/F [address] Unit #: [id number] Loc: [place] [address] Phys: Gonsalo Garcia MD Acct: [id number] Dis Date: Status: REG ER PHONE #: [phone] Exam Date: 05/17/2019 0326 FAX #: [phone] Reason: CHEST PAIN EXAMS: CPT CODE: [id number] XR CHEST 1 V 48328 Location: T18 CHEST X-RAY: 05/17/19 CLINICAL HISTORY: Trauma, patient presen ting to the emergency room, chest pain COMPARISON EXAMS: chest x-ray exam FINDINGS: For size is promin ent mild pulmonary venous engorgement and interstitial edema evolved from the prior exam felt to be indicative of cardiac decompensation. No signifi cant pleural effusion. No pneumothorax or abnormal air collection. No acu te fracture is seen . Postop changes involving the thoracolumbar spine wit h metallic plates and screws appearing intact. IMPRESSION No acute traumatic injury Evolving cardiac decompensat ion with small degree . Fall at 0336 Reported and signed by: Violeta Barron M.D. CC: Gonsalo Garcia MD Technologist: St pio Caal Trnscrd Date/Time/By: 05/17 (0336) : By: [email or web address] Orig Print D/T: S: 05/17/2019 (0340) PAGE 1 Signed Report PROTHROMBIN [id number] 03:29:00* Test Item Value Reference Range Interpretation Comments PROTHROMBIN TIME PATIENT (test code = PTP) 15.1 seconds 9.0-14.0 H INTERNATIONAL NORMAL RATIO (test code = INR) 1.3 0.8-1.2 H The therapeutic range for oral anticoagulant therapy formost indications is an international normalized ratio (INR)of between 2.0 and 3.0. The recommended therapeutic INRrange for various clinical situations is listed below: Clinical Situation INR range Pulmonary e mbolism treatment (2.0-3.0)Venous thrombosis treatmentVenous thrombosis prophylaxis (high risk surgery)Prevention of systemic embolism from: Acute myocardial infarction Valvular heart disease Atrial fibrillation Mechanical prosthetic heart valves (2.5-3.5) IS PATIENT ON ANTICOAGULANTS? NTHROMBOPLASTIN TIME [id number] 03:29:00* Test Item Value Reference Range Interpretation Comments THROMBOPLASTIN TIME PARTIAL (test code = PTT) 34.2 seconds 25.0-36. 5 N IS PATIENT ON ANTICOAGULANTS? NBASIC METABOLIC [id number] 03:21:00* Test Item Value Reference Range Interpretation Comments SODIUM (test code = NA) 139 mmol/L 136-145 N POTASSIUM (test code = K) 4.2 mmol/L 3.5-5.1 N CHLORIDE (test code = CL) 101.0 mmol/L 98-107 N CARBON DIOXIDE (test code = CO2) 30.0 mmol/L 21-32 N ANION GAP (test code = GAP) 12.2 10-20 N GLUCOSE (test code = GLU) 100 mg/dL 74-106 N BLOOD UREA NITROGEN (test code = BUN) 24 mg/dL 7-18 H GLOMERULAR FILTRATION RATE (test code = GFR) > 60 mL/min >=60 Estimated GFR by using Modified MDRD formula.Chronic kidney disease is defined as either kidney damageor GFR <60 mL/min/1.73 m2 for >3 months. CREATININE (test code = CREAT) 0.80 mg/dL 0.55-1.02 N Note change in reference range due to change in reagent. BUN/CREATININE RATIO (test code = BUN/CREA) 31.6 10-20 H CALCIUM (test code = CA) 8.9 mg/dL 8.5-10.1 N - CT HEAD/BRAIN W/O [id number] 03:15:00 Name: LA[facility]ISHA [facility] : 1945 Age/S: 73 / F [address] [facility] Unit #: [id number] Loc: [place] [address] Phys: Gonsalo Garcia MD Acct: [id number] Dis Date: Status: REG ER PHONE #: [phone] Exam Date: 05/17/2019303 FAX #: [phone] Reason: HEADACHE EXAMS: CPT CODE: [id number] CT HEAD/BRAIN W/O CONT 92820 EXAM: - CT HEAD/BRAIN W/O CONT HISTORY: Fall, headache. TECHNIQUE: Axial tomograms through the brain were obtained without intravenous contrast. This exam was performed according to our departmental dose-optimization program, which includes automated exposure control, adjustment of the mA and/or kV according to patient size and/or use of iterative reconstruction t echnique. COMPARISON: 04/23/2019. FINDINGS: There is no intracranial hemorrhage, mass, or mass effect. The ventri cular system and sulci are age-appropriate. There is no evidence of acute infarction. The osseous structures and orbits, show no significant abnormalities. The visualized sinuses are relatively clear. The s oft tissues are unremarkable. IMPRESSION: No a cute intracranial abnormality with no evidence of intracranial hemorrhag e. Electronically Signed by Celestine Shaikh MD on 9 at 0315 Reported and signed by: Celestine Shaikh MD CC: Gonsalo Garcia MD Technologist:Jarred Cain, RT(R)(CT) CTDI: DLP: Trnscb Date/Time: 2018 (314) [email or web address] Orig Print D/T: S: 05/17/2019 (317 ) PAGE 1 Signed Report - CT C-SPINE W/O [id number] 03:14:00 Name: LA[facility]ISHA [facility] : 1945 Age/S: 73 / F [address] [facility] Unit #: [id number] Loc: [place], [place] [address] Phys: Gonsalo Garcia MD Acct: [id number] Dis Date: Status: REG ER PHONE #: [phone] Exam Date: 05/17/2019303 FAX #: [phone] Reason: Neck Pain EXAMS: CPT CODE: [id number] CT C-SPINE W/O CONTRAST 74354 Location: T 18 CT cervical spine, 05/17/19 TECHNIQUE: CT examination of the cervical spine without contrast was performed on a helical scanner without contrast with coronal and sagittal reformatted imaging obtained. This was acquired with 2D reformatted acquired using MPR software on CT workstation. Scanning conducted in axial plane from skull base down to upper thoracic spine. 1.25mm contiguous slice thickness acquired . The examination was performed with low radiation dose technique. Automatic exposure control was utilized to reduce radiation dose. Examination conducted on updated helical CT scanner CLINICAL HISTORY: Neck pain. Trauma , patient presenting to the emergency room. Patient status post fall. Comparison exam: CT examination of the cervical spine conducted on 04/23/19 FINDINGS: There is no acute fracture or subluxation. Cervical cerclage wire/metallic instrumentation is again seen engaged at C6 with osseous fusion masses solid incorporated from C6 to C7 . Short radius dextroscoliosis in the cervical region multilevel spondylos is. The findings altogether appears similar to the prior exam. Assessment of the skull base unremarkable. Prevertebral soft tissues unremarkable. The atlano axial joint is unremarkable . No pneumothorax or rib fractu re is seen IMPRESSION: No acute fracture or traumatic malalignment of the spinal lines Cervical spondylos is and postop changes. Findings appear similar to the prior CT exam of 04/23/19 at 0314 Reported and signed by: Violeta Barron M.D. PAG E 1 Signed Report (CONTINUED) Name: [facility]HA [facility] : 1945 Age/S: 73 / F [address] [facility] Unit #: [id number] Loc: [place] [address] Phys: Gonsalo Garcia MD Acct: [id number] Dis Date: Status: REG ER PHONE #: [phone] Exam Date: 05/17/2019303 FAX #: [phone] Reason: Neck Pain EXAMS: CPT CODE: [id number] CT C-SPINE W/O CONTRA ST [address]209 <Continued> CC: Gonsalo Garcia MD Technologist:Robert Cain, RT(R)(CT) CTDI: DLP: Trnscb Date/Time: 05/17/2019 (313) [email or web address] Orig Print D/T: S: 05/17/2019 (6224) PAGE 2 Signed Report CBC W/O [id number] 03:12:00* Test Item Value Reference Range Interpretation Comments WHITE BLOOD CELL (test code = WBC) 8.3 K/mm3 4.5-12.5 N RED BLOOD CELL (test code = RBC) 4.04 mill/mm3 3.7-5.2 N HEMOGLOBIN (test code = HGB) 12.2 gram/dL 11.5-15.5 N HEMATOCRIT (test code = HCT) 39.4 % 36.0-46.0 N MEAN CELL VOLUME (test code = MCV) 97.5 fL 80-98 N MEAN CELL HGB (test code = MCH) 30.2 picogram 27.0-33.0 N MEAN CELL HGB CONCETRATION (test code = MCHC) 31.0 gram/dL 33.0-36. 0 L RED CELL DISTRIBUTION WIDTH (test code = RDW) 13.3 % 11.6-16. 2 N PLATELET COUNT (test code = PLT) 241 K/mm3 150-450 N MEAN PLATELET VOLUME (test code = MPV) 10.0 fL 6.7-11.0 N CBC W/O [id number] 03:05:00* Test Item Value Reference Range Interpretation Comments WHITE BLOOD CELL (test code = WBC) K/mm3 4.5-12.5 RED BLOOD CELL (test code = RBC) mill/mm3 3.7-5.2 HEMOGLOBIN (test code = HGB) 12.2 gram/dL 11.5-15.5 N HEMATOCRIT (test code = HCT) 39.4 % 36.0-46.0 N MEAN CELL VOLUME (test code = MCV) fL 80-98 MEAN CELL HGB (test code = MCH) picogram 27.0-33.0 MEAN CELL HGB CONCETRATION (test code = MCHC) gram/dL 33.0-36. 0 RED CELL DISTRIBUTION WIDTH (test code = RDW) % 11.6-16. 2 PLATELET COUNT (test code = PLT) K/mm3 150-450 MEAN PLATELET VOLUME (test code = MPV) fL 6.7-11.0 - CT ABD PELVIS [id number] 08:45:00 Name: LA[facility]ISHA G[facility] : 1945 Age/S: 73 / F [address] Unit #: [id number] Loc: [place] [address] Phys: Grzegorz Dubon MD Acct: [id number] Dis Date: Status: REG ER PHONE #: [phone] Exam Date: 04/23/2019 0835 FAX #: [phone] Reason: L flank pain EXAMS: CPT CODE: [id number] CT ABD PELVIS W/CONT 47849 REASON FOR EXAM: L flank pain EXAM ORDER DATE: 04/23/2019 5:47 AM Ordering M.D.: Grzegorz Dubon MD PROCEDURE: - CT ABD PELVIS W/CONT contrast-enhanced axial CT images were acquired through the abdomen/pelvis at 5 mm intervals. Sagittal and coronal reformatted images were generated. Automated exposure control was utilized for this reduction. Phases of contrast: venous and delayed COMPARISON: None FINDINGS: Visualized thorax: Subsegmental atelectasis is seen in the bilateral lung bases Hepatobiliary system: Prior cholecystectomy. Hepatic parenchyma is grossly within normal limits Pancreas: Normal Spleen: Normal Adrenal glands: Normal Genitourinary system: Prior hysterectomy. Otherwise normal. Specifically no stones in the kidneys or ureters, no hydronephrosis or h ydroureter, and no stranding of the perinephric or periureteral fat Gastrointestinal tract and appendix: There is a copious amount of stool in the cecum and ascending colon. The appendix is not clearly visualized h owever no inflammatory changes are seen in the region of the appendix near the ileocecal junction. Remainder of the gastrointestinal tract is within normal limits Abdominal vascular structures: Mild atherosclerotic disease is present in the aorta and iliac arteries Peritone um and retroperitoneum: No free fluid or free air. No omental or mesenter ic masses. No abnormal lymph nodes. PAGE 1 S igned Report (CONTINUED) Name: LA[facility]ISHA [facility] : 1945 Age/S: 73 / F [address] Unit #: [id number] Loc: [place] [address] Phys: Grzegorz Dubon MD Acct: [id number] Dis Date: Status: REG ER PHONE #: [phone] Exam Date: 11/01/201 9 0835 FAX #: [phone] Reason: L flank pain EXAMS: CPT CODE: [id number] CT ABD PELVIS W/CONT 64979 <Continued> Musculoskeletal structures and abdominal wall: There is been prior posterior fusion of foot appears to be the entire thoracolumbar spine with placement of multiple disc spacers. There is also diastasis recti and there is a fat-containing umbilical hernia. There are degenerative changes in the pubic symphysis. IMPRESSION: No acute intra-abdominal process to explain the patient's left flank pain. Specifically no abnormalities of the left kidney or left ureter. Copious amount of stool in the ascending colon and cecum suggest constipation. Fat-containing umbilical hernia. Location: [facility] at 0845 Reported and signed by: Arthur Hodgson MD CC: Grzegorz Dubon MD Technologist:Raquel CastroRT(R),CT CTDI: DLP: Trnscb Date/Time: 04/23/2019 (4045) [email or web address] Orig Print D/T: S: 04/23/2019 (6869) PAGE 2 Signed Report - XR CHEST 1 [id number] 07:33:00 FAX: Grzegorz Dubon MD [phone] [place]: St: REG Name: LAKEISHA MCKEON [facility] : [birth year] Age/S: 73/F [address] [facility] Unit #: [id number] Loc: [place] [address] Phys: Grzegorz Dubon MD Acct: [id number] Dis Date: Status: REG ER PHONE #: [phone] Exam Date: 04/23/2019 0652 FAX #: [phone] Reason: CHEST PAIN EXAMS: CPT CODE: [id number] XR CHEST 1 V 14233 HISTORY: CHEST PAIN TECHNIQUE: AP chest x-ray COMPARISON: None FINDINGS: No airspace consolidation or pleural effusion. Elevated right hemidiaphragm. Cardiomegaly. Mediastinal silhouette is unremarkable. Ex tensive thoracolumbar fusion. Thoracic spinal cord stimulator. IMPRESSION: No radiographic evidence of acute cardiopul monary process. LOCATION: at 0733 Reported and signed by: Amanda Sheppard D.O. CC: Grzegorz Ram MD Technologist: IGOR HUSAIN JR Trnscrd Date/Time/By: 04/23/2019 (29 ) : By: [email or web address] Orig Print D/T: S: 04/23/2019 (9036) PAGE 1 Signed Report - XR T-SPINE 3 [id number] 07:31:00 FAX: Grzegorz uDbon MD [phone] [place]: St: REG Name: LAKEISHA MCKEON [facility] : [birth year] Age/S: 73/F [address] [facility] Unit #: [id number] Loc: [place] [address] Phys: Grzegorz Dubon MD Acct: [id number] Dis Date: Status: REG ER PHONE #: [phone] Exam Date: 04/23/2019 07 FAX #: [phone] Reason: BACK PAIN EXAMS: CPT CODE: [id number] XR T-SPINE 3 VIEWS 85321 HISTORY: BACK PAIN E XAM: AP and lateral views of the thoracic spine. FINDINGS: Extensi ve thoracolumbar fusion. Lower thoracic stimulator. Thoracic dextroscolios is. Vertebral body alignment is satisfactory. No acute thoracic fracture i s observed. Multilevel thoracic disc space loss with marginal osteophytes. IMPRESSION: No acute thoracic fracture is observed. Extensive thoracolumbar fusion. LOCATION: LP Electronically Signed by Amanda Sheppard D.O. on 06/2018 at 0731 Reported and signed by: Amanda Sheppard D.O. CC: Grzegorz Dubon MD Technologist: IGOR HUSAIN JR Trnaleksandrrd Silvio te/Time/By: 04/23/2019 (0730) : By: [email or web address] Orig Print D/T: S: 04/23 (7898) PAGE 1 Signed Report - XR L-SPINE 2/3 [id number] 07:29:00 FAX: Grzegorz Dubon MD [phone] [place]: St: REG Name: LAKEISHA MCKEON [facility] : [birth year] Age/S: 73/F [address] [facility] Unit #: [id number] Loc: [place] [address] Phys: Grzegorz Dubon MD Acct: [id number] Dis Date: Status: REG ER PHONE #: [phone] Exam Date: 04/23/2019 07 FAX #: [phone] Reason: BACK PAIN EXAMS: CPT CODE: [id number] XR L-SPINE 2/3 VIEWS 35715 HISTORY: BACK PAIN T ECHNIQUE: AP and lateral views of the lumbar spine. Comparison 02/20/18. FINDINGS: Extensive thoracolumbar instrumentation and fusion. Lower thoracic stimulator. Vertebral body alignment is satisfactory. No ac luiz lumbar fracture is observed. Generalized osteopenia. IMPRESS ION: No acute lumbar fracture is observed. No significant elsa nge compared to 02/20/18. LOCATION: LP at 0729 Reported and signed by: Amanda Soler CC: Grzegorz Dubon MD Technologist: IGOR HUSAIN JR Trnscrd D ate/Time/By: 04/23/2019 (0729) : By: [email or web address] Orig Print D/T: S: 06/2018 (0732) PAGE 1 Signed Repor t PROTHROMBIN [id number] 07:23:00* Test Item Value Reference Range Interpretation Comments PROTHROMBIN TIME PATIENT (test code = PTP) 13.8 seconds 9.0-14.0 N INTERNATIONAL NORMAL RATIO (test code = INR) 1.2 0.8-1.2 N The therapeutic range for oral anticoagulant therapy formost indications is an international normalized ratio (INR)of between 2.0 and 3.0. The recommended therapeutic INRrange for various clinical situations is listed below: Clinical Situation INR range Pulmonary e mbolism treatment (2.0-3.0)Venous thrombosis treatmentVenous thrombosis prophylaxis (high risk surgery)Prevention of systemic embolism from: Acute myocardial infarction Valvular heart disease Atrial fibrillation Mechanical prosthetic heart valves (2.5-3.5) IS PATIENT ON ANTICOAGULANTS? NTHROMBOPLASTIN TIME [id number] 07:23:00* Test Item Value Reference Range Interpretation Comments THROMBOPLASTIN TIME PARTIAL (test code = PTT) 33.0 seconds 25.0-36. 5 N IS PATIENT ON ANTICOAGULANTS? NBASIC METABOLIC [id number] 07:11:00* Test Item Value Reference Range Interpretation Comments SODIUM (test code = NA) 141 mmol/L 136-145 N POTASSIUM (test code = K) 4.1 mmol/L 3.5-5.1 N CHLORIDE (test code = CL) 106.0 mmol/L 98-107 N CARBON DIOXIDE (test code = CO2) 28.0 mmol/L 21-32 N ANION GAP (test code = GAP) 11.1 10-20 N GLUCOSE (test code = GLU) 88 mg/dL 74-106 N BLOOD UREA NITROGEN (test code = BUN) 18 mg/dL 7-18 N GLOMERULAR FILTRATION RATE (test code = GFR) > 60 mL/min >=60 Estimated GFR by using Modified MDRD formula.Chronic kidney disease is defined as either kidney damageor GFR <60 mL/min/1.73 m2 for >3 months. CREATININE (test code = CREAT) 0.60 mg/dL 0.55-1.02 N Note change in reference range due to change in reagent. BUN/CREATININE RATIO (test code = BUN/CREA) 30.3 10-20 H CALCIUM (test code = CA) 8.4 mg/dL 8.5-10.1 L HEPATIC FUNCTION [id number] 07:11:00* Test Item Value Reference Range Interpretation Comments TOTAL PROTEIN (test code = PROT) 7.3 gram/dL 6.4-8.2 N ALBUMIN (test code = ALB) 3.2 g/dL 3.4-5.0 L GLOBULIN (test code = GLOB) 4.1 gram/dL 2.7-4.2 N ALBUMIN/GLOBULIN RATIO (test code = A/G) 0.8 0.75-1.50 N BILIRUBIN TOTAL (test code = BILT) 0.40 mg/dL 0.0-1.0 N BILIRUBIN DIRECT (test code = BILD) 0.07 mg/dL 0.0-0.20 N SGOT/AST (test code = AST) 15 IUnit/L 15-37 N SGPT/ALT (test code = ALT) 27 IUnit/L 12-78 N ALKALINE PHOSPHATASE TOTAL (test code = ALKP) 119 IUnit/L 45-117 H Note change in reference range due to change in reagent. [id number] 07:11:00* Test Item Value Reference Range Interpretation Comments LIPASE (test code = LIP) 96 U/L 73.0-393.0 N [id number] 07:11:00* Test Item Value Reference Range Interpretation Comments TROPONIN-I (test code = TROPI) <0.015 ng/mL 0-0.045 N BASIC METABOLIC [id number] 07:04:00* Test Item Value Reference Range Interpretation Comments SODIUM (test code = NA) 141 mmol/L 136-145 N POTASSIUM (test code = K) 4.1 mmol/L 3.5-5.1 N CHLORIDE (test code = CL) 106.0 mmol/L 98-107 N CARBON DIOXIDE (test code = CO2) mmol/L 21-32 ANION GAP (test code = GAP) 10-20 GLUCOSE (test code = GLU) mg/dL 74-106 BLOOD UREA NITROGEN (test code = BUN) mg/dL 7-18 GLOMERULAR FILTRATION RATE (test code = GFR) mL/min >=60 CREATININE (test code = CREAT) mg/dL 0.55-1.02 BUN/CREATININE RATIO (test code = BUN/CREA) 10-20 CALCIUM (test code = CA) mg/dL 8.5-10.1 HEPATIC FUNCTION [id number] 07:04:00* Test Item Value Reference Range Interpretation Comments TOTAL PROTEIN (test code = PROT) gram/dL 6.4-8.2 ALBUMIN (test code = ALB) g/dL 3.4-5.0 GLOBULIN (test code = GLOB) gram/dL 2.7-4.2 ALBUMIN/GLOBULIN RATIO (test code = A/G) 0.75-1.50 BILIRUBIN TOTAL (test code = BILT) mg/dL 0.0-1.0 BILIRUBIN DIRECT (test code = BILD) mg/dL 0.0-0.20 SGOT/AST (test code = AST) IUnit/L 15-37 SGPT/ALT (test code = ALT) IUnit/L 12-78 ALKALINE PHOSPHATASE TOTAL (test code = ALKP) IUnit/L 45-117 [id number] 07:04:00* Test Item Value Reference Range Interpretation Comments LIPASE (test code = LIP) U/L 73.0-393.0 CBC W/O [id number] 06:54:00* Test Item Value Reference Range Interpretation Comments WHITE BLOOD CELL (test code = WBC) 8.1 K/mm3 4.5-12.5 N RED BLOOD CELL (test code = RBC) 4.24 mill/mm3 3.7-5.2 N HEMOGLOBIN (test code = HGB) 12.9 gram/dL 11.5-15.5 N HEMATOCRIT (test code = HCT) 42.0 % 36.0-46.0 N MEAN CELL VOLUME (test code = MCV) 99.1 fL 80-98 H MEAN CELL HGB (test code = MCH) 30.4 picogram 27.0-33.0 N MEAN CELL HGB CONCETRATION (test code = MCHC) 30.7 gram/dL 33.0-36. 0 L RED CELL DISTRIBUTION WIDTH (test code = RDW) 13.6 % 11.6-16. 2 N PLATELET COUNT (test code = PLT) 212 K/mm3 150-450 N MEAN PLATELET VOLUME (test code = MPV) 10.2 fL 6.7-11.0 N - CT C-SPINE W/O [id number] 06:11:00 Name: LAKEISHA GIL [facility] : 1945 Age/S: 73 / F [address] [facility] Unit #: [id number] Loc: [place] [address] Phys: Grzegorz Dubon MD Acct: [id number] Dis Date: Status: REG ER PHONE #: [phone] Exam Date: 04/23/2019 0605 FAX #: [phone] Reason: Neck Pain EXAMS: CPT CODE: [id number] CT C-SPINE W/O CONTRAST [id number] AFTER HOURS SERVICE ON: 04/23/2019 6:[address] of the Cervical Spine Without Contrast Location Code M12 History: Neck Pain, Trauma. Technique: Scans were obtained on a helical scanner pre IV contrast only. One or more of the following dose reduction techniques were used: Automated exposure control, adjustment of the mA and/or kV according to patient size, and/or utilization of iterative reconstruction technique. Findings: Craniocervical junction is intact. Atlantoaxial joint is unremarkable. C1 ring is normal. Dens is intact. Transverse processes, pedicles and lamina are intact. No compression fracture or pathologic lesions. There is advanced osteopenia. Postsurgical changes noted in the posterior elements of C5. There is no significant central canal stenosis. Multilevel foraminal stenoses are seen due to uncoverteb ral hypertrophy. Impression: No cervical spine fracture. at 0611 Reported and signed by: Julio Bates M.D. CC: Grzegorz Sosa MD Technologist:ALEXANDRA ESPINOSA RT CTDI: DLP: Trnscb Date/Time: 04/23/2019 (0611) Rui ORELLANA Orig Print D/T: S: 04/23/2019 (8505) PAGE 1 Signed Report - CT HEAD/BRAIN W/O [id number] 06:08:00 Name: LAKEISHA GIL [facility] : 1945 Age/S: 73 / F [address] [facility] Unit #: [id number] Loc: [place] [address] Phys: Grzegorz Dubon MD Acct: [id number] Dis Date: Status: REG ER PHONE #: [phone] Exam Date: 04/23/2019 0600 FAX #: [phone] Reason: HEADACHE EXAMS: CPT CODE: [id number] CT HEAD/BRAIN W/O CONT 23804 AFTER HOURS SERVICE ON: 04/23/2019 6:[address] Scan of the Brain Without Contrast Location Code M12 History: HEADACHE Technique: Scans were performed on a helical scanner pre IV contrast only. The study is limited secondary to lack of intravenous contrast, particularly for evaluation of masses. One or more of the following dose reduction techniques were used: Automated exposure control, adjustment of the mA and/or kV according to patient size, and/or utilization of iterative reconstruction technique. Findings: There is no hydrocephalus. Basal cisterns are patent. There is no intracranial hyperdense hemorrhage. There is no midline shift or mass effect. No effacement of the johnson-white matter junction to indicate acute infarction. There are chronic ischemic white matter changes. There is no skull fracture. Impression: No acute intracranial CT findings. Senescent changes. at 0608 Reported and signed by: Julio Bates M.D. CC: Grzegorz Dubon MD Technologist:RT VICK CTDI: DLP: Trnscb Date/Time: 04/23/2019 (0608) Herbert Orig Print D/T: S: 04/23/2019 (0611) PAGE 1 Signed Report BONE DXA DUAL ENERGY 2018-11-02 15:58:00 [place] [address] Patient Name: LAKEISHA GIL MR #: [id number] : 1945 Age/Sex: 73/F Req #: [id number] Adm Physician: Ordered by: PATY MICHEL MD Report #: [id number] Location: CT Room/Bed: Procedure: 15 DX/BONE DXA DUAL ENERGY Exam Date: Exam Time: REPORT STATUS: Signed EXAM: Bone mineral density study 11/02/2018 9:42 AM INDICATION: PAIN IN LEFT KNEE / FRACTURE COMPARISON: Previous DEXA none. Baseline DEXA none FI NDINGS: Evaluation of the left hip and right forearm was performed. Th e study is technically adequate. The patient's fracture risk is compared to an age-matched control. The patient denies prior surgery/fracture of the hips. T he patient indicates prior back surgery and left wrist surgery. LEFT HIP * Femoral neck bone mineral density: 0.531 gm/cm2, T-score is -2.9, Z-score i s -1.0. * Total bone mineral density: 0.608 gm/cm2, T-score is -2.7, Z-sco re is -1.2. RIGHT FOREARM * Total bone mineral density (radius 33 %): 0.546 gm/cm2, T-score is -2.4, Z-score is 0.1. IMPRESSION: 1. LEFT HIP: Bone mineralization by WHO Classification is osteoporosis, the fract ure risk is high. 2. RIGHT FOREARM: Bone mineralization by WHO Classification is osteopenia, the fracture risk is moderate. <T score: NL = -1 or higher Osteopenia = -1 to -2.5 Osteoporosis = -2.5 or lower Z score: < - 2 concerning for path> Signed by: Dr. Marito Liang M.D. on 11/02/2018 4:03 PM Dictated By: MARITO LIANG MD 1603 Transcribed By: GEOFFREY on 11/02/18 1603 COPY TO: PATY MICHEL MD CT KNEE LEFT [id number] 10:21:00 [place] [address] Patient Name: LAKESIHA GIL MR #: [id number] : [birth year] Age/Sex: 73/F Req #: [id number] Adm Physician: Ordered by: PATY MICHEL MD Report #: [id number] Location: CT Room/Bed: Procedure: CT/CT KNEE LEFT WO Exam Date: 11/02/18 Exam Time: 0930 REPORT STATUS: Signed EXAM INATION: CT scan of the left knee without contrast. TECHNIQUE: Spiral CT im ages of the left knee were obtained. No intravenous contrast was administered. Coronal and sagittal reformatted images were obtained. COMPARISON: Left knee MRI 09/02/2016 CLINICAL HISTORY:Pain, contusion, fracture, 2 weeks of p ainful left knee DISCUSSION: ABSENCE OF INTRAVENOUS CONTRAST DECREASES SE NSITIVITY FOR DETECTION OF FOCAL LESIONS AND VASCULAR PATHOLOGY. Bones: The distal femur, patella, proximal tibia and proximal fibula are intact, without displaced fracture. Joint spaces: Small joint effusion with interva l increase in size of Dick's cyst relative to MRI 09/02/2016. Worsening tricom partmental joint space narrowing with interval development of subchondral cyst ic change along the medial femoral articular surface. Medial and lateral menis olivier calcifications. Ligamentous structures are poorly evaluated by CT. So ft tissues: Mild nonspecific subcutaneous edema of the visualized left leg. No subcutaneous gas or discrete drainable fluid collection. IMPRESSION: No acute osseous abnormalities. No acute fracture. Progression of degenera tive arthrosis, medial compartment predominant, relative to MRI from August, with small joint effusion and Dick's cyst. Signed by: Dr. Nena Mccullough M.D. on 11/02/2018 10:31 AM Dictated By: NENA MCCULLOUGH MD Electronicall y Signed By: NENA MCCULLOUGH MD on 11/02/18 1031 Transcribed By: GEOFFREY on 11/02 1031 COPY TO: PATY MICHEL MD CT LUMBAR SPINE [id number] 12:49:00 [place] [address] Patient Name: LAKEISHA GIL MR #: [id number] : 1945 Age/Sex: 72/F Req #: [id number] Adm Physician: Ordered by: GEORGI DUNAWAY MD Report #: [id number] Location: DX Room/Bed: Procedure: [id number] CT/CT LUMBAR SPINE W Exam Date: 06/02/18 Exam Time: 1000 REPORT STATUS: Signed CT JEANNETTE MBAR SPINE W HISTORY: Lumbar spondylosis COMPARISON: Lumbar spine rad iographs 06/02/2018 TECHNIQUE: Axial CT images of the lumbar spine were obtained after the administration of intrathecal contrast. Coronal and sagitt al reconstructions obtained from the axial data. One or more of the following dose reduction techniques were used: Automated exposure control, adjustment o f the mA and/or kV according to patient size, and/or utilization of iterative reconstruction technique. DISCUSSION: Bone demineralization limits evalua tion. Extensive posterior fusion changes spanning from at least T10-S1 with la minectomies are present. Subcutaneous stimulator device in the left posterior back is partially visualized; associated lead courses towards the lower thorac ic spinal canal. Associated hardware susceptibility artifacts obscure some det ails. There are 5 nonrib-bearing lumbar vertebral bodies. Lumbar lordosis is preserved. There is no significant scoliosis or subluxation. Mildly d isplaced bilateral sacral ala fractures are present. Bone demineralization brenden ng these fractures is associated with ill-defined soft tissue density within t he local marrow. An associated mildly displaced, incompletely healed fracture of the S2 vertebral body is also present (with mild callus formation). Mi ld to moderate T11 and mild T12 vertebral compression deformities are likely c hronic; there is no significant fracture retropulsion. No definite addition al fracture or compression deformity is seen. The thecal sac is well opacif ied. The conus terminates at approximately T12, which is within normal limits. The visualized lower spinal cord and cauda equina are grossly unremarkable. N o gross thecal sac filling defects are seen. Diffuse paraspinal muscle atro phy is present. Posterior incision changes are noted. The paravertebral and pa raspinal soft tissues are otherwise grossly unremarkable. Multilevel osse ous fusion across the disc spaces is present. There are mild degenerative de leon ges in the bilateral sacroiliac joints. T10-T11: No gross canal or foramina l stenosis. T11-T12: The left neural foramen is at least partially oblitera garrison due to posterior disc osteophyte complex/heterotopic ossification. The rig ht neural foramen is obscured by streak artifact. No gross canal stenosis. T12-L1: The right neural foramen is obscured by streak artifact. No gross lore l or left foraminal stenosis. L1-L2: At least mild bilateral foraminal st enoses due to posterior disc osteophyte complex and facet arthrosis. No gross canal stenosis. L2-L3: Mild right and mild to moderate left foraminal steno ses due to posterior disc osteophyte complex and facet arthrosis. No gross can al stenosis. L3-L4: At least mild bilateral foraminal stenoses due to poste rior disc osteophyte complex and facet arthrosis. No gross canal stenosis. L4-L5: Grade 1 anterolisthesis of L4 on L5. The neural foramina are obscured b y streak artifact. No gross canal stenosis. L5-S1: Grade 1 anterolisthesi s of L5 on S1. The neural foramina are obscured by streak artifact. No gross c anal stenosis. Minimal atelectasis is seen in the lung bases. IMPRESS ION: Bone demineralization and streak artifacts limit evaluation. In spite of limitations: 1. Extensive posterior fusion changes spanning from at leas t T10-S1 with laminectomies. Partially visualized cord stimulator device. 2. Mildly displaced bilateral sacral ala fractures are likely subacute to chron ic. Ill-defined soft tissue density within the local marrow may be due to unde rlying neoplastic process (i.e. pathologic fracture) and/or secondary inflamma tion/edema. 3. Associated mildly displaced, incompletely healed fracture of t he S2 vertebral body. 4. Mild to moderate T11 and mild T12 vertebral compre ssion deformities are likely chronic. No significant retropulsion. 5. Mult ilevel degenerative foraminal stenoses as described above. No significant lore l stenosis. Signed by: Dr. Greg Sweet M.D. on 06/02/2018 1:17 PM Dictated By: GREG SWEET MD Transcribed By: GEOFFREY on 06/02/187 COPY TO: GEORGI CAMPBELL MD MYELOGRAM LUMBOSACRAL INCL [id number] 12:03:00 [place] [address] Patient Name: LAKEISHA GIL MR #: [id number] : 1945 Age/Sex: 72/F Req #: [id number] Adm Physician: Ordered by: GEORGI DUNAWAY MD Report #: [id number] Location: DX Room/Bed: Procedure: [id number] DX/MYELOGRAM LUMBOSACRAL INCL INJ Exam Date: Exam T thee: REPORT STATUS: Signed Date and Time: 06/02/2018 Procedure: Lumbar spine myelogram Primary operat or: Dr. Mccullough Assistants: None Pre-operative diagnosis: Low back pain Post-operative diagnosis: Low back pain Conscious Sedation: None Add itional Medications: Lidocaine 1% for local anesthesia Fluoroscopy time: 0.5 minutes Frontal Air Kerma: 98.04 mGy Contrast used: 15 cc Isovue 200 Es timated blood loss: Minimal Specimens: None Implants: None DISCUSSIO N: Informed consent was obtained and documented in the medical record. Pr eliminary radiographs of the lumbar spine were obtained showing extensive mult ilevel surgical hardware with intervertebral disc spacer placement and a spina l stimulation device. The patient was placed in the prone position on the f luoroscopic table. The lower back was prepped and draped in the standard steri le fashion. Under fluoroscopic guidance a suitable percutaneous approach to th e thecal sac at the level of L5-S1 was identified and the overlying skin was m arked. 1% lidocaine was infiltrated into the skin and subcutaneous tissues for local anesthesia. Then under intermittent fluoroscopic guidance, a 22-gauge s neelam needle was advanced into the thecal sac with return of clear cerebrospin al fluid. Subsequently, 15 cc of Isovue-200 contrast were injected without com plication. The needle was removed and a fluoroscopic spot image was saved. A c rosstable lateral radiograph was obtained and the patient was transferred to [facility] CT scanner. FINDINGS: No significant ventral epidural filling de fects on crosstable lateral radiograph. IMPRESSION: Successful lumba r spine myelogram under fluoroscopic guidance, with injection of 15 cc of Isov ue-200 into the thecal sac for purposes of subsequent lumbar spine CT, odilia fracnis reported. Signed by: Dr. Nena Mccullough M.D. on 06/02/2018 12:07 PM Dictated By: NENA MCCULLOUGH MD 06 Transcribed By: GEOFFREY on 06/02/181206 COPY TO: GEORGI CAMPBELL MD BONE SCAN, 3 [id number] 22:29:00 [place] [address] Patient Name: LAKEISHA GIL MR #: [id number] : 1945 Age/Sex: 72/F Req #: [id number] Adm Physician: Ordered by: PHIL HAMILTON DPM Report #: [id number] [facility] Procedure: [id number] NM/BONE SCAN, 3 PHASE Ex am Date: 12/17/17 Exam Time: 1315 REPORT STATUS : Signed Bone Scan, three-phase Reason for exam: 72 F with open, nonh ealing wound at plantar aspect of left heel. Radiopharmaceutical: Tc-99m MDP 20 mCi Comparison: CT left foot 07/20/2017l; left foot radiographs 2017 Following intravenous administration of the radiopharmaceutical, donal charlotte flow and immediate blood pool images of the feet and ankles followed by 3- hour delayed selected spot images were obtained. Flow and blood pool alysha ges show diffuse mildly increased tracer activity in the left foot and ankle c ompared to the right with markedly increased tracer in the posterior aspect of the right calcaneus. The delayed images show focal increased tracer activ ity in most of the posterior portion of the right calcaneus. Diffusely increa sed tracer activity is also seen throughout the adjacent soft tissues. Im pression: Scan evidence of osteomyelitis in the posterior aspect of the le ft calcaneus. The CT examination of the left foot on 07/20/2017 showed osteomy elitis in the left calcaneus at that time. If the patient's treatment regimen is thought to have been adequate for osteomyelitis, it is possible that infec tion has been eradicated and the remaining osteoblastic activity persists sole ly as part of remodeling. If this is of concern, a labeled white blood cell s tudy is a better biomarker for end point of therapy. Signed by: Dr. Jayy Santoro M.D. on 12/17/2017 10:42 PM Dictated By: ABDULLAHI SANTORO MD Elect ronically Signed By: ABDULLAHI SANTORO MD on 12/17/172241 Transcribed By: GEOFFREY on 12/17/172241 COPY TO: PHIL HAMILTON DPM Blood Culture 2017-10-30 16:34:00* Test Item Value Reference Range Interpretation Comments Blood Culture (test code = 10236842) NO GROWTH AFTER 72 HOURS [facility] DistrictVancomycin Level [id number] 09:17:00* Test Item Value Reference Range Interpretation Comments Vancomycin Level Trough (test code = 4092-3) 14.3 5.0-10.0 HH Results called to AVIS WILKERSON RN at 0916 on 10/30/17 by Ryan De La Rosa. RB OK. [facility] DistrictBacteria identification in wound by [id number] 07:59:00* Test Item Value Reference Range Interpretation Comments Wound Culture (test code = 6462-6) Organism: YEAST SPECIES [facility]odium Zckay7992-46-98 07:04:00* Test Item Value Reference Range Interpretation Comments Sodium Level (test code = 2951-2) 142 136-145 [facility] DistrictPotassium Sexjw2711-62-91 07:04:00* Test Item Value Reference Range Interpretation Comments Potassium Level (test code = 2823-3) 3.7 3.5-5.1 [facility] DistrictChloride Lsyqo0177-16-73 07:04:00* Test Item Value Reference Range Interpretation Comments Chloride Level (test code = 2075-0) 103 98-107 [facility] DistrictCarbon Dioxide Bmxzi6199-48-69 07:04:00* Test Item Value Reference Range Interpretation Comments Carbon Dioxide Level (test code = 2028-9) 31 22-29 H [facility] DistrictAnion Lss8380-26-72 07:04:00* Test Item Value Reference Range Interpretation Comments Anion Gap (test code = 84017-6) 11.7 8-16 [facility] DistrictBlood Urea Qezeugge5838-82-88 07:04:00* Test Item Value Reference Range Interpretation Comments Blood Urea Nitrogen (test code = 3094-0) 9 7-26 [facility] DistrictCreatinine2018-05-10 07:04:00* Test Item Value Reference Range Interpretation Comments Creatinine (test code = 2160-0) 0.72 0.57-1.11 [facility] DistrictBUN/Creatinine Hswrt3852-25-17 07:04:00* Test Item Value Reference Range Interpretation Comments BUN/Creatinine Ratio (test code = 3097-3) 13 6-25 [facility] DistrictEstimat Glomerular Filtration Rate 2017-10-30 07:04:00* Test Item Value Reference Range Interpretation Comments Estimat Glomerular Filtration Rate (test code = 71666-6) 60- >60 Ranges were taken from the National Kidney Disease Education Program and the [facility] Foundation literature.Reference ranges:60 or greater: Szfoec01-49 ( for 3 consecutive months): Chronic kidney disease 15 or less: Kidney failureBallinger Memorial Hospital DistrictGlucose Eypcx2328-30-84 07:04:00* Test Item Value Reference Range Interpretation Comments Glucose Level (test code = LOT5321) 102 74-118 [facility] DistrictCalcium Jrngq6315-60-96 07:04:00* Test Item Value Reference Range Interpretation Comments Calcium Level (test code = 60630-4) 9.3 8.4-10.2 [facility] DistrictMagnesium Zvhhu1119-23-16 07:04:00* Test Item Value Reference Range Interpretation Comments Magnesium Level (test code = 91287-4) 1.7 1.3-2.1 [facility] DistrictWhite Blood Zfcbn7080-27-11 06:35:00* Test Item Value Reference Range Interpretation Comments White Blood Count (test code = 6690-2) 5.60 4.8-10.8 [facility] DistrictRed Blood Jhorr7617-03-15 06:35:00* Test Item Value Reference Range Interpretation Comments Red Blood Count (test code = 789-8) 3.84 3.6-5.1 [facility] DistrictHemoglobin2018-05-10 06:35:00* Test Item Value Reference Range Interpretation Comments Hemoglobin (test code = 12326-0) 11.0 12.0-16.0 L [facility] DistrictHematocrit2018-05-10 06:35:00* Test Item Value Reference Range Interpretation Comments Hematocrit (test code = 4544-3) 34.9 34.2-44.1 [facility] DistrictMean Corpuscular Rhbplq5115-70-70 06:35:00* Test Item Value Reference Range Interpretation Comments Mean Corpuscular Volume (test code = 787-2) 90.9 81-99 [facility] DistrictMean Corpuscular Wgwnwkwimi0446-05-78 06:35:00* Test Item Value Reference Range Interpretation Comments Mean Corpuscular Hemoglobin (test code = 785-6) 28.6 28-32 [facility] DistrictMean Corpuscular Hemoglobin Concent 2017-10-30 06:35:00* Test Item Value Reference Range Interpretation Comments Mean Corpuscular Hemoglobin Concent (test code = 786-4) 31.5 31-35 [facility] DistrictRed Cell Distribution Koadt1535-51-14 06:35:00* Test Item Value Reference Range Interpretation Comments Red Cell Distribution Width (test code = 99259-5) 16.8 11.7 -14.4 H [facility] DistrictPlatelet Flevw2780-45-91 06:35:00* Test Item Value Reference Range Interpretation Comments Platelet Count (test code = 777-3) 376 140-360 H [facility] DistrictNeutrophils (%) (Auto)2017-10-30 06:35:00 * Test Item Value Reference Range Interpretation Comments Neutrophils (%) (Auto) (test code = 31388-2) 66.0 38.7-80.0 [facility] DistrictLymphocytes (%) (Auto)2017-10-30 06:35:00 * Test Item Value Reference Range Interpretation Comments Lymphocytes (%) (Auto) (test code = 736-9) 16.4 18.0-39.1 L [facility] DistrictMonocytes (%) (Auto)2017-10-30 06:35:00* Test Item Value Reference Range Interpretation Comments Monocytes (%) (Auto) (test code = 5905-5) 8.2 4.4-11.3 [facility] DistrictEosinophils (%) (Auto)2017-10-30 06:35:00 * Test Item Value Reference Range Interpretation Comments Eosinophils (%) (Auto) (test code = 713-8) 8.6 0.0-6.0 H [facility] DistrictBasophils (%) (Auto)2017-10-30 06:35:00* Test Item Value Reference Range Interpretation Comments Basophils (%) (Auto) (test code = 706-2) 0.4 0.0-1.0 [facility] DistrictIM GRANULOCYTES %2017-10-30 06:35:00* Test Item Value Reference Range Interpretation Comments IM GRANULOCYTES % (test code = IM GRANULOCYTES %) 0.4 0.0- 1.0 [facility] DistrictNeutrophils # (Auto)2017-10-30 06:35:00* Test Item Value Reference Range Interpretation Comments Neutrophils # (Auto) (test code = 751-8) 3.7 2.1-6.9 [facility] DistrictLymphocytes # (Auto)2017-10-30 06:35:00* Test Item Value Reference Range Interpretation Comments Lymphocytes # (Auto) (test code = 96463-8) 0.9 1.0-3.2 L [facility] DistrictMonocytes # (Auto)2017-10-30 06:35:00* Test Item Value Reference Range Interpretation Comments Monocytes # (Auto) (test code = 742-7) 0.5 0.2-0.8 [facility] DistrictEosinophils # (Auto)2017-10-30 06:35:00* Test Item Value Reference Range Interpretation Comments Eosinophils # (Auto) (test code = 711-2) 0.5 0.0-0.4 H [facility] DistrictBasophils # (Auto)2017-10-30 06:35:00* Test Item Value Reference Range Interpretation Comments Basophils # (Auto) (test code = 704-7) 0.0 0.0-0.1 [facility] DistrictAbsolute Immature Granulocyte (auto 2017-10-30 06:35:00* Test Item Value Reference Range Interpretation Comments Absolute Immature Granulocyte (auto (sherly t code = Absolute Immature Granulocyte (auto) 0.02 0-0.1 [facility] DistrictClostridium Difficile Toxin A & B 2017-10-29 14:35:00* Test Item Value Reference Range Interpretation Comments Clostridium Difficile Toxin A & B (test code = 393055322) NEGATIVE NEGATIVE Testing on stool aspirate specimens is outside photocopy operator claims since specime n type not validated on this assay.[facility] Bedside Yfcvljh9333-69-55 21:23:00* Test Item Value Reference Range Interpretation Comments Bedside Glucose (test code = 02925-3) 93 70-120 Meter ID: [id number] [facility] Hospital DistrictErythrocyte Sedimentation Jihf6087-73-10 11:54:00* Test Item Value Reference Range Interpretation Comments Erythrocyte Sedimentation Rate (test code = 4537-7) 83 0- 20 H [facility] District[facility] GKB4395-75-84 19:01:00* Test Item Value Reference Range Interpretation Comments Urine WBC (test code = 5821-4) 0-5 0-5 [facility] AOX0202-97-47 19:01:00* Test Item Value Reference Range Interpretation Comments Urine RBC (test code = 87745-9) NONE 0-5 [facility] Dnfmvniu6205-08-69 19:01:00* Test Item Value Reference Range Interpretation Comments Urine Bacteria (test code = 04695-9) MODERATE NONE H [facility] Epithelial Pmsel6841-59-24 19:01:00 * Test Item Value Reference Range Interpretation Comments Urine Epithelial Cells (test code = 69802-9) MODERATE NONE [facility] Cdjxc1058-59-92 18:50:00* Test Item Value Reference Range Interpretation Comments Urine Color (test code = 5778-6) YELLOW YELLOW [facility] Vxglwcl9452-97-86 18:50:00* Test Item Value Reference Range Interpretation Comments Urine Clarity (test code = 22435-8) SL CLOUDY CLEAR [facility] Specific Rwfhmth3975-03-37 18:50:00 * Test Item Value Reference Range Interpretation Comments Urine Specific [place] (test code = 5811-5) 1.020 1.010-1.02 5 [facility] eT2158-59-01 18:50:00* Test Item Value Reference Range Interpretation Comments Urine pH (test code = 04056-5) 7 5-7 [facility] Leukocyte Gmplyfjc0555-21-37 18:50:00* Test Item Value Reference Range Interpretation Comments Urine Leukocyte Esterase (test code = 5799-2) NEGATIVE NEGATIVE [facility] Ihqounq4248-02-34 18:50:00* Test Item Value Reference Range Interpretation Comments Urine Nitrite (test code = 80407-5) NEGATIVE NEGATIVE [facility] Clveqmw1109-36-44 18:50:00* Test Item Value Reference Range Interpretation Comments Urine Protein (test code = 5804-0) 1+ NEGATIVE H [facility] District[facility] Glucose (UA)2017-10-27 18:50:00* Test Item Value Reference Range Interpretation Comments Urine Glucose (UA) (test code = 2349-9) NEGATIVE NEGATIVE [facility] Bcutvfe7615-88-87 18:50:00* Test Item Value Reference Range Interpretation Comments Urine Ketones (test code = 95926-0) TRACE NEGATIVE H [facility] Cskgknnfccsl1599-76-00 18:50:00* Test Item Value Reference Range Interpretation Comments Urine Urobilinogen (test code = 66022-3) 0.2 0.2-1 [facility] Iumjurwiz0110-89-70 18:50:00* Test Item Value Reference Range Interpretation Comments Urine Bilirubin (test code = 1978-6) NEGATIVE NEGATIVE [facility] Jheyd4109-44-52 18:50:00* Test Item Value Reference Range Interpretation Comments Urine Blood (test code = 08810-0) NEGATIVE NEGATIVE [facility] DistrictTotal Bszwszovl0625-59-41 16:52:00* Test Item Value Reference Range Interpretation Comments Total Bilirubin (test code = 1975-2) 0.4 0.2-1.2 [facility] DistrictAspartate Amino Transf (AST/SGOT) 2017-10-27 16:52:00* Test Item Value Reference Range Interpretation Comments Aspartate Amino Transf (AST/SGOT) (test code = Aspartate Amino Transf (AST/SGOT)) 15 5-34 [facility] DistrictAlanine Aminotransferase (ALT/SGPT) 2017-10-27 16:52:00* Test Item Value Reference Range Interpretation Comments Alanine Aminotransferase (ALT/SGPT) (test code = 1742-6) 12 0-55 [facility] DistrictTotal Foxsvip2563-52-85 16:52:00* Test Item Value Reference Range Interpretation Comments Total Protein (test code = 2885-2) 8.3 6.5-8.1 H [facility] DistrictAlbumin2018-05-07 16:52:00* Test Item Value Reference Range Interpretation Comments Albumin (test code = 1751-7) 2.9 3.5-5.0 L [facility] DistrictGlobulin2018-05-07 16:52:00* Test Item Value Reference Range Interpretation Comments Globulin (test code = 61189-4) 5.4 2.3-3.5 H [facility] DistrictAlbumin/Globulin Mcxvu6538-21-70 16:52:00 * Test Item Value Reference Range Interpretation Comments Albumin/Globulin Ratio (test code = 1759-0) 0.5 0.8-2.0 L [facility] DistrictAlkaline Sgltqytonaz5785-94-24 16:52:00* Test Item Value Reference Range Interpretation Comments Alkaline Phosphatase (test code = 6768-6) 108 40-150 [facility] DistrictLactic Acid Oinhq9235-50-23 16:46:00* Test Item Value Reference Range Interpretation Comments Lactic Acid Level (test code = Lactic Acid Level) 15.5 4.5- 19.8 [facility]ast[facility] Occult Lzflx2931-89-44 10:34:00* Test Item Value Reference Range Interpretation Comments Stool Occult Blood (test code = 2335-8) NEGATIVE NEGATIVE [facility] DistrictB-Type Natriuretic Fkpwrxc4177-76-48 07:19:00* Test Item Value Reference Range Interpretation Comments B-Type Natriuretic Peptide (test code = 73761-7) 24.5 0-100 [facility] DistrictC-Reactive Ywbhksd8988-99-79 23:04:00* Test Item Value Reference Range Interpretation Comments C-Reactive Protein (test code = 1988-5) 179.7 0.0-4.9 H Performed at: HD - [facility] [address] [id number] Director: Horacio Bentley MD, Phone: [phone] Memorial Hospital DistrictVitamin B12 Iizjj2285-04-62 08:26:00* Test Item Value Reference Range Interpretation Comments Vitamin B12 Level (test code = 13111-2) 327 213-816 [facility] DistrictFolate2018-01-28 08:26:00* Test Item Value Reference Range Interpretation Comments Folate (test code = 2284-8) 18.8 7.0-15.4 H [facility] DistrictFree Nedoaayqb1716-08-52 08:26:00* Test Item Value Reference Range Interpretation Comments Free Thyroxine (test code = 3024-7) 0.96 0.9-1.8 [facility] DistrictThyroid Stimulating Hormone (TSH) 2017-07-20 08:26:00* Test Item Value Reference Range Interpretation Comments Thyroid Stimulating Hormone (TSH) (test code = 69994-6) 0.755 0.350-4.940 [facility] DistrictIron Epqqp5556-16-38 07:44:00* Test Item Value Reference Range Interpretation Comments Iron Level (test code = 2498-4) 29 50-170 L [facility] DistrictTotal Iron Binding Lrkpxpcu7332-37-68 07:44:00* Test Item Value Reference Range Interpretation Comments Total Iron Binding Capacity (test code = 2500-7) 311 261-4 78 [facility] DistrictPercent Iron Nqnzhfritl5606-21-00 07:44:00* Test Item Value Reference Range Interpretation Comments Percent Iron Saturation (test code = 2502-3) 9 15-50 L [facility] DistrictTransferrin2018-01-28 07:44:00* Test Item Value Reference Range Interpretation Comments Transferrin (test code = 3034-6) 222 180-382 [facility] DistrictHemoglobin A1c Jilfqzf6994-43-00 16:01:00 * Test Item Value Reference Range Interpretation Comments Hemoglobin A1c Percent (test code = Hemoglobin A1c Percent) 5.4 4.0-7.0 [facility] DistrictTriglycerides Tuynt3285-89-57 15:37:00* Test Item Value Reference Range Interpretation Comments Triglycerides Level (test code = 2571-8) 98 0-149 [facility] DistrictCholesterol Emfoe9840-41-01 15:37:00* Test Item Value Reference Range Interpretation Comments Cholesterol Level (test code = 2093-3) 165 0-199 Less than 200 mg/dL Low Oynl413 - 239 mg/dL Borderline Vpbm578 m g/dl and greater High Risk [facility] DistrictLDL Eslkqoiwrsp6881-79-86 15:37:00* Test Item Value Reference Range Interpretation Comments LDL Cholesterol (test code = 2089-1) 87 60-130 [facility] DistrictHDL Ujiozcmmsgb9200-94-96 15:37:00* Test Item Value Reference Range Interpretation Comments HDL Cholesterol (test code = 2085-9) 58 40-60 [facility] DistrictCholesterol/HDL Rwmnn6191-65-68 15:37:00 * Test Item Value Reference Range Interpretation Comments Cholesterol/HDL Ratio (test code = 9830-1) 2.8 3.0-3.6 L [facility] DistrictProthrombin Vzwk7535-05-24 15:37:00* Test Item Value Reference Range Interpretation Comments Prothrombin Time (test code = 5902-2) 14.6 11.9-14.5 H [facility] DistrictProthromb Time International Ratio 2017-07-18 15:37:00* Test Item Value Reference Range Interpretation Comments Prothromb Time International Ratio (test code = 6301-6) 1.08 Oral Anticoagulant Therapy INR Values:1. Low Intensity Therapy 1.5 - 2.02 . Moderate Intensity Therapy 2.0 - 3.03. High Intensity Therapy(1) 2.5 - 3. 54. High Intensity Therapy(2) 3.0 - 4.05. Panic Value INR > 5.0 [facility] DistrictActivated Partial Thromboplast Time 2017-07-18 15:37:00* Test Item Value Reference Range Interpretation Comments Activated Partial Thromboplast Time (test code = 48107-4) 34.3 23.8-35.5 [facility] DistrictFL, SENIOR PROGRAM MANAGER IN OR/30 MINUTE INCREMENTS 2017-06-10 14:19:00Reason for exam:->TRIAL OF SPINAL CORD STIMULATOR VIA LAMINECTOMYPROCEDURE PERFORMED IN O.R. - PLEASE REFER TO THE INTRAOPERATIVE REPORT. C METABOLIC HWNHZ7515-04-66 10:13:00* Test Item Value Reference Range Interpretation Comments SODIUM (BEAKER) (test code = 381) 142 meq/L 136-145 POTASSIUM (BEAKER) (test code = 379) 3.2 meq/L 3.5-5.1 L CHLORIDE (BEAKER) (test code = 382) 101 meq/L 98-107 CO2 (BEAKER) (test code = 355) 34 meq/L 22-29 H BLOOD UREA NITROGEN (BEAKER) (test code = 354) 19 mg/dL 7-21 CREATININE (BEAKER) (test code = 358) 0.78 mg/dL 0.57-1.25 GLUCOSE RANDOM (BEAKER) (test code = 652) 80 mg/dL 70-105 CALCIUM (BEAKER) (test code = 697) 8.6 mg/dL 8.4-10.2 EGFR (BEAKER) (test code = 1092) 73 mL/min/1.73 sq m ESTIMATED GFR IS NOT ACCURATE CREATININE CLEARANCE IN PREDICTING GLOMERULAR FILTRATION RATE. ESTIMATED GFR IS NOT APPLICABLE FOR DIALYSIS PATIENTS. CBC W/PLT COUNT & AUTO YLEEEEYPOKIT8432-81-53 09:49:00* Test Item Value Reference Range Interpretation Comments WHITE BLOOD CELL COUNT (BEAKER) (test code = 775) 8.9 K/ L 3.5- 10.5 RED BLOOD CELL COUNT (BEAKER) (test code = 761) 3.66 M/ L 3.93-5 .22 L HEMOGLOBIN (BEAKER) (test code = 410) 10.3 GM/DL 11.2-15.7 L HEMATOCRIT (BEAKER) (test code = 411) 34.8 % 34.1-44.9 MEAN CORPUSCULAR VOLUME (BEAKER) (test code = 753) 95.1 fL 79. 4-94.8 H MEAN CORPUSCULAR HEMOGLOBIN (BEAKER) (test code = 751) 28.1 pg 25.6-32.2 MEAN CORPUSCULAR HEMOGLOBIN CONC (BEAKER) (test code = 752) 29.6 GM/DL 32.2-35.5 L RED CELL DISTRIBUTION WIDTH (BEAKER) (test code = 412) 15.1 % 11.7-14.4 H PLATELET COUNT (BEAKER) (test code = 756) 292 K/CU MM 150-450 MEAN PLATELET VOLUME (BEAKER) (test code = 754) 9.7 fL 9.4-12 .3 NUCLEATED RED BLOOD CELLS (BEAKER) (test code = 413) 0 /100 WBC 0 -0 NEUTROPHILS RELATIVE PERCENT (BEAKER) (test code = 429) 77 % LYMPHOCYTES RELATIVE PERCENT (BEAKER) (test code = 430) 17 % MONOCYTES RELATIVE PERCENT (BEAKER) (test code = 431) 5 % EOSINOPHILS RELATIVE PERCENT (BEAKER) (test code = 432) 0 % BASOPHILS RELATIVE PERCENT (BEAKER) (test code = 437) 0 % NEUTROPHILS ABSOLUTE COUNT (BEAKER) (test code = 670) 6.83 K/ L 1.56-6.13 H LYMPHOCYTES ABSOLUTE COUNT (BEAKER) (test code = 414) 1.55 K/ L 1.18-3.74 MONOCYTES ABSOLUTE COUNT (BEAKER) (test code = 415) 0.46 K/ L 0. 24-0.36 H EOSINOPHILS ABSOLUTE COUNT (BEAKER) (test code = 416) 0.03 K/ L 0.04-0.36 L BASOPHILS ABSOLUTE COUNT (BEAKER) (test code = 417) 0.02 K/ L 0. 01-0.08 IMMATURE GRANULOCYTES-RELATIVE PERCENT (BEAKER) (test code = 2801) 0 % 0-1 BASIC METABOLIC DSTCV5604-79-42 13:45:00* Test Item Value Reference Range Interpretation Comments SODIUM (BEAKER) (test code = 381) 142 meq/L 136-145 POTASSIUM (BEAKER) (test code = 379) 3.5 meq/L 3.5-5.1 CHLORIDE (BEAKER) (test code = 382) 96 meq/L 98-107 L CO2 (BEAKER) (test code = 355) 38 meq/L 22-29 H BLOOD UREA NITROGEN (BEAKER) (test code = 354) 20 mg/dL 7-21 CREATININE (BEAKER) (test code = 358) 0.76 mg/dL 0.57-1.25 GLUCOSE RANDOM (BEAKER) (test code = 652) 84 mg/dL 70-105 CALCIUM (BEAKER) (test code = 697) 9.2 mg/dL 8.4-10.2 EGFR (BEAKER) (test code = 1092) 75 mL/min/1.73 sq m ESTIMATED GFR IS NOT ACCURATE CREATININE CLEARANCE IN PREDICTING GLOMERULAR FILTRATION RATE. ESTIMATED GFR IS NOT APPLICABLE FOR DIALYSIS PATIENTS. RAD, CHEST, 2 GMXKL6156-27-77 13:40:00Reason for exam:->pre op testingFINAL REPORT Chest, [...] RESSION: No acute cardiopulmonary abnormality. Signed: [place] Verified Date/Time: 05/21/2017 13:40:14 Reading Location: [address] Reading Room Electronically signed by: SAVAGE YOUNG on 01:40 PM URINALYSIS W/ REFLEX URINE RDRMTUU1180-76-10 13:33:00* Test Item Value Reference Range Interpretation Comments COLOR (BEAKER) (test code = 470) Yellow CLARITY (BEAKER) (test code = 469) Clear SPECIFIC GRAVITY UA (BEAKER) (test code = 468) 1.024 1.001-1 .035 PH UA (BEAKER) (test code = 467) 7.0 5.0-8.0 PROTEIN UA (BEAKER) (test code = 464) 20 mg/dL Negative A GLUCOSE UA (BEAKER) (test code = 365) Negative Negative KETONES UA (BEAKER) (test code = 371) Negative Negative BILIRUBIN UA (BEAKER) (test code = 462) Negative Negative BLOOD UA (BEAKER) (test code = 461) Negative Negative NITRITE UA (BEAKER) (test code = 465) Negative Negative LEUKOCYTE ESTERASE UA (BEAKER) (test code = 466) Negative Negat melissa UROBILINOGEN UA (BEAKER) (test code = 463) 2.0 mg/dL 0.2-1.0 H RBC UA (BEAKER) (test code = 519) 1 /HPF WBC UA (BEAKER) (test code = 520) 1 /HPF BACTERIA (BEAKER) (test code = 517) Occasional MUCUS (BEAKER) (test code = 1574) Rare SQUAMOUS EPITHELIAL (BEAKER) (test code = 516) 2 /HPF SOURCE(BEAKER) (test code = 2795) [id number] 13:26:00* Test Item Value Reference Range Interpretation Comments PARTIAL THROMBOPLASTIN TIME (BEAKER) (test code = 760) 31.9 seconds 22.5-36.0 PROTHROMBIN TIME/CYS8708-41-12 13:25:00* Test Item Value Reference Range Interpretation Comments PROTIME (BEAKER) (test code = 759) 14.4 seconds 11.7-14.7 INR (BEAKER) (test code = 370) 1.1 <=5.9 RECOMMENDED COUMADIN/WARFARIN INR THERAPY RANGESSTANDARD DOSE: 2.0 - 3.0 Inclu cece: PROPHYLAXIS for venous thrombosis, systemic embolization; TREATMENT for joe ous thrombosis and/or pulmonary embolus.HIGH RISK: Target INR is 2.5-3.5 for pat ients with mechanical heart valves.CBC W/PLT COUNT & AUTO QJXURTVDZNYO4618-89-75 13:08:00* Test Item Value Reference Range Interpretation Comments WHITE BLOOD CELL COUNT (BEAKER) (test code = 775) 7.7 K/ L 3.5- 10.5 RED BLOOD CELL COUNT (BEAKER) (test code = 761) 3.81 M/ L 3.93-5 .22 L HEMOGLOBIN (BEAKER) (test code = 410) 10.7 GM/DL 11.2-15.7 L HEMATOCRIT (BEAKER) (test code = 411) 35.7 % 34.1-44.9 MEAN CORPUSCULAR VOLUME (BEAKER) (test code = 753) 93.7 fL 79. 4-94.8 MEAN CORPUSCULAR HEMOGLOBIN (BEAKER) (test code = 751) 28.1 pg 25.6-32.2 MEAN CORPUSCULAR HEMOGLOBIN CONC (BEAKER) (test code = 752) 30.0 GM/DL 32.2-35.5 L RED CELL DISTRIBUTION WIDTH (BEAKER) (test code = 412) 15.0 % 11.7-14.4 H PLATELET COUNT (BEAKER) (test code = 756) 272 K/CU MM 150-450 MEAN PLATELET VOLUME (BEAKER) (test code = 754) 10.4 fL 9.4-12 .3 NUCLEATED RED BLOOD CELLS (BEAKER) (test code = 413) 0 /100 WBC 0 -0 NEUTROPHILS RELATIVE PERCENT (BEAKER) (test code = 429) 71 % LYMPHOCYTES RELATIVE PERCENT (BEAKER) (test code = 430) 16 % MONOCYTES RELATIVE PERCENT (BEAKER) (test code = 431) 10 % EOSINOPHILS RELATIVE PERCENT (BEAKER) (test code = 432) 2 % BASOPHILS RELATIVE PERCENT (BEAKER) (test code = 437) 0 % NEUTROPHILS ABSOLUTE COUNT (BEAKER) (test code = 670) 5.48 K/ L 1.56-6.13 LYMPHOCYTES ABSOLUTE COUNT (BEAKER) (test code = 414) 1.21 K/ L 1.18-3.74 MONOCYTES ABSOLUTE COUNT (BEAKER) (test code = 415) 0.77 K/ L 0. 24-0.36 H EOSINOPHILS ABSOLUTE COUNT (BEAKER) (test code = 416) 0.17 K/ L 0.04-0.36 BASOPHILS ABSOLUTE COUNT (BEAKER) (test code = 417) 0.02 K/ L 0. 01-0.08 IMMATURE GRANULOCYTES-RELATIVE PERCENT (BEAKER) (test code = 2801) 0 % 0-1 EVHYGYEGVZVN1989-52-60 13:39:57251Hemmojsz LuivjpnMCZZRBEYEZNH0829-50-83 13:39:004.4[facility] AdlamboWVXDFQYISXQH4064-29-22 13:39:25810Drftpzkb [place] JLIPLSSMHMLY4970-17-83 13:39:0037[facility] MovfiuwXTKMABELKZWL3808-24-34 13:39:00 7.4[facility] HermannCHEST XRAY LINE PLACEMENT [place] [address] Patient Name: LAKEISHA GIL MR #: [id number] : 1945 Age/Sex: 72/F Req #: [id number] Adm Physician: MANDI REBOLLAR MD Ordered by: BEVERLY CASTANON MD Report #: [id number] Location: [facility]/SURG2 Room/Bed: [facility] Procedure: [id number] DX/CHEST XRAY LINE PLACEMENT Exam Date: 10/29/17 Juanito Time: 1550 REPORT STATUS: Signed PROCEDURE: A single AP view of the chest. COMPARISON: 10/27/17 INDICATIONS: PICC LINE PLACEMENT FINDINGS: Lines/tubes: New PICC in place with tip overlying mid SVC. Lungs: Limited by body habitus and low lung volumes. No focal consolidation. Pleura: There is no pleural effusion or pneumothorax. Heart and mediastinum : Cardiac silhouette is mildly prominent. Bones: Thoracolumbar posterior fusio n. The visualized hardware is intact. Left shoulder arthroplasty. IMP RESSION: New right PICC in place with tip overlying mid SVC. No visible pne umothorax. Dictated by: Jackson Gomez M.D. on 10/29/2017 at 16:14 Electronically approved by: Jackson Gomez M.D. on 10/29/2017 at 16:14 Dictated By: JACKSON GOEMZ MD 13 Transcribed By: KELLY on 10/29/171613 COPY TO: BEVERLY CASTANON MD FOOT LEFT COMPLETE [place] [address] Patient Name: LAKEISHA GIL MR #: [id number] : 1945 Age/Sex: 72/F Req #: [id number] Adm Physician: MANDI REBOLLAR MD Ordered by: MERCEDES THOMPSON DPM Report #: [id number] Location: MED/SURG2 Room/Bed: [facility] Procedure: [id number] DX/FOOT LEFT COMPLETE Exam Date: 10/29/17 Exam Haseeb e: 0820 REPORT STATUS: Signed PROCEDURE: X-RAY LEFT FOOT, [...] foot for further characterization. Dictated by: Aliya hCavarria M.D. on 10/29/2017 at 8:48 Electronically approved by: Aliya Chavarria M.D. on 10/29/2017 at 8:48 Dictated By: ALIYA CHAVARRIA MD 7 Transcribed By: KELLY on 10/29/1748 COPY TO: MERCEDES THOMPSON DPM CHEST SINGLE (NOT PORTABLE) [place] [address] Patient Name: LAKEISHA GIL MR #: [id number] : 1945 Age/Sex: 72/F Req #: [id number] Adm Physician: Ordered by: JANET CHAVES [facility] Report #: [id number] Location: ER Room/Bed: Procedure: [id number] DX/CHEST SINGLE (NOT PORTAB LE) Exam Date: [...] definite acute cardiopulmonary disease. Dictated by: Erick Gomez M.D. on 10/27/2017 at 17:41 Electronically approved by: Giovanna Gomez M.D. on 10/27/2017 at 17:42 Dictated By: JACKSON BARAJAS MD 41 Transcribed By: KELLY on 10/27/171741 COPY TO: JANET CHAVES NP CT FOOT LEFT W [place] [address] Patient Name: LAKEISHA GIL MR #: [id number] : 1945 Age/Sex: 71/F Req #: [id number] Adm Physician: MANDI REBOLLAR MD Ordered by: CLIFFORD BOJORQUEZ DPM Report #: [id number] Location: MED/SURG2 Room/Bed: [facility] Procedure: 0128-[address]/CT FOOT LEFT W Exam Date: 07/20/17 [...] GEOFFREY on 202 COPY TO: CLIFFORD BOJORQUEZ DPLinn HIP RIGHT 2-3 VW (+/- PELVIS) [place] [address] Patient Name: LAKEISHA GIL MR #: [id number] : 1945 Age/Sex: 71/F Req #: [id number] Adm Physician: MANDI REBOLLAR MD Ordered by: MANDI REBOLLAR MD Report #: [id number] Location: MED/SURG2 Room/Bed: [facility] Procedure: [id number] DX/HIP RIGHT 2-3 VW (+/- PELVIS) Exam Date: Exam T thee: REPORT STATUS: Signed RIGHT HIP X-RAY - 3 VIEWS HISTORY: COMPARISON: None available. FINDINGS: Bones: No acute displaced fracture. Partially visualized hardware in the lower lumbar spine . Osseous alignment is within normal limits. Joints: Degenerative de [place] es of both sacroiliac joints and acetabular femoral joints. Soft tissues: The soft tissues appear unremarkable. Partially visualized metallic device in the left lower quadrant. IMPRESSION: No acute radiographic abnormali ty. Signed by: Dr. Alana Tejada M.D. on 07/19/2017 6:11 PM Dictated By: ALANA TEJADA MD 10 COPY TO: MANDI REBOLLAR MD KNEE RIGHT 1-2 VIEWS [place] [address] Patient Name: LAKEISHA GIL MR #: [id number] : 1945 Age/Sex: 71/F Req #: [id number] Adm Physician: MANDI REBOLLAR MD Ordered by: MANDI REBOLLAR MD Report #: [id number] Location: MED/SURG2 Room/Bed: [facility] Procedure: [id number] DX/KNEE RIGHT 1-2 VIEWS Exam Date: 07/19/17 Exam Ti me: 1715 REPORT STATUS: Signed RIGHT KNEE X-RAY - 3 VIEWS HIST ORY: COMPARISON: None available. FINDINGS: Bones: No acute displaced fracture. Osseous alignment is within normal limits. Joints: Moderate tricompartmental degenerative changes. Soft tissues: The soft tissues appear unremarkable. IMPRESSION: No acute radiogra phic abnormality. Signed by: Dr. Alana Tejada M.D. on 07/19/2017 6:12 PM Dictated By: ALANA TEJADA MD 11 Transcribed By: GEOFFREY on 07/19 COPY TO: MANDI REBOLLAR MD CHEST SINGLE (PORTABLE) [place] [address] Patient Name: LAKEISHA GIL MR #: [id number] : 1945 Age/Sex: 71/F Req #: [id number] Adm Physician: MANDI REBOLLAR MD Ordered by: MANDI REBOLLAR MD Report #: [id number] Loc ation: MED/SURG2 Room/Bed: [facility] Procedure: [id number] DX/CHEST SINGLE (PORTABLE) Exam Date: 07/19/17 Exam Time: 954 REPORT STATUS: Signed EXAMINATION: CHEST SINGLE (PORTABLE) INDICATION: COMPARISON: None FINDINGS: AP view Findings: Stable cardiac silhouette, visualized thoracic memo dware, left humeral arthroplasty and neurostimulator leads. Motion artifact wi thout visualized consolidation or pneumothorax. Impression: 1. Lines/Tu bes: Right PICC tip overlies the expected cavoatrial junction. 2. Bilateral ce ntral pulmonary vascular congestion, new since prior exam. Signed by: Dr Karlene Tejada M.D. on 07/19/2017 10:37 AM Dictated By: NEERAJ TEJADA MD 1037 COPY TO: MARCOS REBOLLAR MD CHEST XRAY LINE PLACEMENT [place] [address] Patient Name: LAKEISHA GIL MR #: [id number] : 1945 Age/Sex: 71/F Req #: [id number] Adm Physician: MANDI REBOLLAR MD Ordered by: MANDI REBOLLAR MD Report #: [id number] Location: MED/SURG2 Room/Bed: [facility] Procedure: [id number] DX/CHEST XRAY LINE PLACEMENT Exam Date: Exam Time: REPORT STATUS: Signed CHEST XRAY LINE PLACEMENT, 07/19/2017 3:38 AM Technique: CHEST XRAY LINE PLACEMENT Comparison: 07/19/2016 Clinical histo ry: PICC line placement advancement Findings: Stable cardiac [...] MANDI REBOLLAR MD CHEST XRAY LINE PLACEMENT [place] [address] Patient Name: LAKEISHA GIL MR #: [id number] : 1945 Age/Sex: 71/F Req #: [id number] Adm Physician: MANDI REBOLLAR MD Ordered by: MANDI REBOLLAR MD Report #: [id number] Loc ation: MED/SURG2 Room/Bed: [facility] Procedure: [id number] DX/CHEST XRAY LINE PLACEMENT Exam Date: Exam [...] TO: MANDI REBOLLAR MD FOOT LEFT COMPLETE [place] [address] Patient Name: LAKEISHA GIL MR #: [id number] : 1945 Age/Sex: 71/F Req #: [id number] Adm Physician: MANDI REBOLLAR MD Ordered by: LENNOX GONZALEZ Report #: [id number] Location: [facility] Room/Bed: [place] [address] Procedure: [id number] DX/FOOT LEFT COMPLETE Exam Date: 07/18/17 Exdavid m Time: 1515 REPORT STATUS: Signed PROCEDURE: X-RAY [...] contrast) for better evaluation. Dictated by: Lyle Garcia M.D. on 07/18/2017 at 16:19 Electronically approved by: Lyle Garcia M.D. on 07/18/2017 at 16:19 Dictated By: LYLE GARCIA MD 1619 Transcribed By: KELLY on 07/18/17 1619 COPY TO: LENNOX GONZALEZ
== END 2020-01-19 15:18 ==
LOC: OR 05:41 → PACU V 09:22 → MED/SURG 15:43
PROVIDERS: ADMIT Specialist; ATTEND Specialist
DX: M16.0 Bilateral primary osteoarthritis of hip (principal); M17.0 Bilateral primary osteoarthritis of knee; M19.042 Primary osteoarthritis, left hand; M19.041 Primary osteoarthritis, right hand; I87.2 Venous insufficiency (chronic) (peripheral); E66.01 Morbid (severe) obesity due to excess calories; M81.0 Age-related osteoporosis without current pathological fracture; M96.1 Postlaminectomy syndrome, not elsewhere classified; F41.9 Anxiety disorder, unspecified; I48.91 Unspecified atrial fibrillation; Z79.01 Long term (current) use of anticoagulants; D64.9 Anemia, unspecified; Z11.59 Encounter for screening for other viral diseases; G62.9 Polyneuropathy, unspecified; I95.9 Hypotension, unspecified; G47.33 Obstructive sleep apnea (adult) (pediatric); Z01.812 Encounter for preprocedural laboratory examination
CPT/HCPCS: 27130; 36415; 72170; 85014; 85018; 86850; 86900; 86920; 97116 ×2; 97161; 97530 ×2; G0378 ×2; J0690 ×2; J0171; J1100; J1885; J2795; J3010; J3370; J7030 ×2; J7040; S0164; U0002; C1734; C1776

== ENCOUNTER 2020-02-14 08:43 | Emergency (ER) | payer MEDICARE, OTHER ==
[~2020-02-14] VITALS: Ht 162.6 cm; Wt 116.1 kg
[~2020-02-14 08:43] MED LIST changes: +ENOXAPARIN40 MG/0.4 SC
[2020-02-14] MEDS ORDERED: KETOROLAC TROMETHAMINE 30 MG/ML VIAL IM STA (08:53)
[2020-02-14] MEDS ORDERED: HYDROCODONE/APAP 10MG-325MG TAB PO ONE (09:00)
--- NOTE | 2020-02-14 09:05 | Emergency Department Note ---
History of Present Illnes History of Present Illness Chief Complaint: Extremity Trauma/Pain History of Present Illness This is a 74 year old female with h/o arthritis here for 1 week h/o R knee pain. Pt has been seen by PCP and he said it was 2/2 R hip surgery she had done at end of December. Pt has been having issues with arthritis in the past and has taken joint injections. Pt takes norco 10 for chronic pain, did not take any today. 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 Arrival Mode: [facility] Treatment DENTAL TECHNICIAN METAL: See EMS Report Additional Treatment DENTAL TECHNICIAN METAL: FROM HOME Onset (how long ago): week(s) (1) Location: R knee Quality: ache Radiation: Reports non-radiation Severity: severe Onset quality: gradual Duration (how long): week(s) (1) Timing of current episode: constant Progression: worsening Chronicity: recurrent Context: Reports recent surgery; Denies recent illness, Denies recent immobilization, Denies trauma/injury Relieving factors: none Exacerbating factors: movement Associated symptoms: Denies denies other symptoms, Denies chest pain, Denies cough, Denies diaphoresis, Denies loss of appetite Treatments prior to arrival: none Past Medical/Family History Physician Review I have reviewed the patient's past medical and family history. Any updates have been documented here. 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 RESULTING IN ONLY 1 FUNCTIONING LUNG DVT RLS IRREGULAR HEARTBEAT Past Surgical History: Cholecysctectomy, Hysterectomy Other Surgery: SEVERAL BACK SURGERIES L SHOULDER REPLACEMENT CARPAL TUNNEL B HANDS LEFT FOOT L KNEE SX BREAST BIOPSY Other Last Tetanus: ood Review of Systems Review of Systems Constitutional: Reports no symptoms EENTM: Reports no symptoms Cardiovascular: Reports no symptoms Respiratory: Reports no symptoms Gastrointestinal: Reports no symptoms Genitourinary: Reports no symptoms Musculoskeletal: Reports as per HPI Integumentary: Reports no symptoms Neurological: Reports no symptoms Psychological: Reports no symptoms Endocrine: Reports no symptoms Hematological/Lymphatic: Reports no symptoms Physical Exam Related Data Allergies: Coded Allergies: hydromorphone (Verified Allergy, Severe, 05/04/18) DISORIENTED methadone (Verified Allergy, Severe, Respiratory depression, 05/04/18) DISORIENTED clindamycin (Verified Allergy, Unknown, 08/30/16) morphine (Verified Allergy, Unknown, 07/06/19) Triage Vital Signs Vital Signs Date Time Temp Pulse Resp B/P (MAP) Pulse Ox O2 Delivery O2 Flow Rate FiO2 02/14/20 08:51 98.1 65 16 132/74 96 Room Air Physical Exam CONSTITUTIONAL Constitutional: Present well-developed, Present well-nourished HENT HENT: Present normocephalic, Present atraumatic, Present oropharynx clear/moist, Present nose normal HENT L/R: Present left ext ear normal, Present right ext ear normal EYES Eyes: Reports PERRL, Reports conjunctivae normal NECK Neck: Present ROM normal PULMONARY Pulmonary: Present effort normal, Present breath sounds normal CARDIOVASCULAR Cardiovascular: Present regular rhythm, Present heart sounds normal, Present capillary refill normal, Present normal rate GASTROINTESTINAL Abdominal: Present soft, Present nontender, Present bowel sounds normal GENITOURINARY Genitourinary: Present exam deferred SKIN Skin: Present warm, Present dry MUSCULOSKELETAL Musculoskeletal: Present ROM normal, Present other (R knee with hannon ROM 2/2 pain, N/V intact distally, RLE with non pitting edema ) NEUROLOGICAL Neurological: Present alert, Present oriented x 3, Present no gross motor or sensory deficits PSYCHOLOGICAL Psychological: Present mood/affect normal, Present judgement normal Assessment & Plan Medical Decision Making MDM Pt is a 74y/o female with RLE edema and R knee pain sp surgery. We will image and gt DVT study for RLE. Pt will be treated for pain. Reassessment Reassessment Pt on discharged with pain controlled, will keep PCP appointment for ?joint injection for DJD Assessment & Plan Final Impression: (1) Arthritis (2) Knee pain, acute Depart Disposition: HOME, SELF-CARE Last Vital Signs Date Time Temp Pulse Resp B/P (MAP) Pulse Ox O2 Delivery O2 Flow Rate FiO2 02/14/20 08:51 98.1 65 16 132/74 96 Room Air Home Meds Active Scripts Diclofenac Sodium (VOLTAREN) 100 Gm Gel..gram., 1 APPLIC ID BID PRN for pain, #1 TUBE THERAPEUTICALLY SUBSTITUTED WITH IBUPROFEN 600MG Prov:MOE DAO MD 02/14/20 Enoxaparin Sodium (ENOXAPARIN SODIUM) 40 Mg/0.4 Ml Disp.syrin, 40 MG SC DAILY for 14 Days, SYR Prov:EVE OBREGON 01/19/20 Reported Medications [Tylenol Es] No Conflict Check 01/11/20 Diclofenac Sodium (VOLTAREN) 100 Gm Gel..gram. THERAPEUTICALLY SUBSTITUTED WITH IBUPROFEN 600MG 01/11/20 Melatonin (MELATONIN) 3 Mg Tablet, 10 MG PO, TAB 01/11/20 [Vitamin D] No Conflict Check, 1.25 01/11/20 Docusate Sodium (COLACE) 100 Mg Cap, 100 MG PO DAILY, #30 CAP 01/11/20 Lactobac Cmb #3/Fos/Pantethine (PROBIOTIC & ACIDOPHILUS CAP) 1 Each Capsule, 1 TAB PO DAILY 07/06/19 Digoxin (DIGOXIN) 250 Mcg Tablet, 250 MCG PO HS 07/06/19 Bumetanide (BUMETANIDE) 1 Mg Tablet, 1 MG PO PRN, #30 TAB 10/28/17 Pantoprazole Sodium* (PROTONIX) 40 Mg Tablet.dr, 40 MG PO DAILY, TAB 08/31/16 Pramipexole Dihydrochloride (MIRAPEX) 1 Mg Tab, 4 MG PO TID, TAB 07/01/16 Metoprolol Tartrate (METOPROLOL TARTRATE) 25 Mg Tablet, 25 MG PO BID, TAB 11/10/15 Duloxetine Hcl (CYMBALTA) 30 Mg Capsule.dr, 60 MG PO BID, #30 CAP 07/29/14 Gabapentin (NEURONTIN) 300 Mg Capsule, 800 MG PO TID 07/05/13 MOE DAO MD Feb 14, 2020 09:05
--- OUTSIDE RECORDS SUMMARY | 2020-02-14 09:17 | XMS REPORT | Clinical Summary ---
Author Author [facility] Address Unknown Phone Unavailable Care Team Providers Care Planning Supervisor Name Role Phone Sharpless PCP Allergies [...] ot Implanted Type Area Manufactur er 10/19/2018 [id number] / / [id number] Matrix Floseal Hemo W/O Ndl 10 Cement/Mono N/A: Spine HEDRICK:BIO [id number] - [id number] ler/Adhesi Thoracic SCI Implanted: Qty: 1 on 05/27/2017 by Gerald Sanchez MD 04/26/2020 [id number] / / [id number] Specify Surescan Mri 2x8 Neuro N/A: Spine MEDTR ONIC Implanted: Qty: 1 on 05/27/2017 by Gerald Villarreal MD 05/20/2018 [id number] / [id number] / Intellis Adaptivestim Neuro N/A: Back MEDTRONI C Implanted: Qty: 1 on 06/03/2017 by Gerald Villarreal MD 02/12/2020 [id number] / [id number] / [id number] Kt Ext Neuro 1x8 40cm [id number] - Pain N/A: Spine MEDTRONIC: [id number] Mgmt/Stimu NEUROMODUL Implanted: Qty: 1 on 05/27/2017 by Gerald De La Garza MD 10/22/2020 [id number] / [id number] / [id number] Kt Ext Neuro 1x8 40cm [id number] - Pain N/A: Spine MEDTRONIC: [id number] Mgmt/Stimu NEUROMODUL Implanted: Qty: 1 on 05/27/2017 by Gerald De La Garza MD Results Not on fileafter 02/13/2019 Insurance Payer Benefit Subscriber ID Type Phone Address Plan / Group MEDICARE MEDICARE A xxxxxxxxxx Medicare B MCR SUPPLEMENT/INDIVIDUAL AETNA xxxxxxxxxx SENIOR SUPPLEMENT [place] Advance Directives For more information, please contact: [address] [address] Date Inactivated Comments Code Status Date Activated 05/28/2017 5:28 PM Full Code 05/27/2017 9:11 AM This code status was determined by: Patient
--- OUTSIDE RECORDS SUMMARY | 2020-02-14 09:17 | XMS REPORT | Continuity of Care Document ---
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 Role Phone [employer] Unavailable Un available Problems Problem Status Onset Date Classification Date Reported Comments Source DX: M54.12=RADICULOPATHY, CERVICAL REGIO Active 04/09/2017 [facility] A/Care Joint Replacement Active 10/06/2013 [facility] OSTEOARTHROS NOS-SHLDER Active 10/05/2013 Home [facility] JOINT REPLACED SHOULDER Active 10/04/2013 [facility] HTN Active 0 10/04/2013 [facility] ESOPHAGEAL REFLUX Active 10/04/2013 [facility] Depression Active 10/04/2013 [facility] PERSON LIVING ALONE Active 10/04/2013 [facility] JOINT PAIN-SHLDER Active 10/04/2013 [facility] Gastroesophageal reflux disease (disorder) Active Problem 05/19/2017 [facility] O[facility] D [place] Anxiety (finding) Active Problem 05/19/2017 [facility] [place] Backache (finding) Active Problem 05/19/2017 [facility] [place] Chronic pain (finding) Active Problem 05/19/2017 [facility] [place] Depression - motion (qualifier value) Active Problem [facility] Eye glasses, device (physical object) Active Problem [facility] [place] Heel injury (disorder) Active Problem 05/19/2017 [facility] 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 [facility] [place] Neuropathy (disorder) Active Problem 05/19/2017 [facility] [place] Numbness (finding) Active Problem 05/19/2017 leg [facility] [place] Osteoarthritis (disorder) Acti ve Problem [facility] [place] Restless legs (disorder) Active Problem 05/19/2017 [facility] [place] [place] Seasonal allergy (disorder) Ac tive Problem [facility] [place] Finding of walking aid use (finding) Active Problem [facility] ADRIANA [place] LT SHOULDER Active [facility] [place] OTH ABN AND INCONCLUSIVE FINDINGS ON DX Active [facility] RADICULOPATHY, CERVICAL REGION Active [facility] Medications Medication Details Route Status Patient Instructions Ordering Provider Order Date Source pantoprazole 40 mg oral enteric coated tablet 40 mg = 1 tab, PO, Daily, # 90 tab, 1 Refill(s) Active 05/08/2017 [facility] gabapentin 800 MG Oral Tablet 800 mg = 1 tab, PO, TID, # 90 tab, 3 Refill(s) Active 05/08/2017 [facility] amitriptyline 100 mg oral tablet 100 mg = 1 tab, PO, Bedtime, # 90 tab, 0 Refill(s) Active 05/08/2017 [facility] Furosemide 40 MG Oral Tablet 4 0 mg = 1 tab, PO, Daily, # 90 tab, 1 Refill(s) Active 05/08/2017 [facility] Mirapex 2 mg, PO, TID, 0 Refil l(s) Active 05/08/2017 [facility] cephalexin 500 mg oral tablet 500 mg = 1 tab, PO, TID, # 28 tab, 0 Refill(s) Active 05/08/2017 [facility] metoprolol 25 mg oral tablet, extended release 25 mg = 1 tab, PO, Bedtime, # 90 tab, 3 Refill(s) Active 05/08/2017 [facility] Lisinopril, 5 MG, Tablet Oral Claudia 10/29/2013 Home [facility] Azithromycin, 1 GM, Packet Oral Claudia 10/27/2013 [facility] Acetaminophen, 500 MG, Tablet Oral Claudia 10/27/2013 [facility] Pramipexole Dihydrochloride, 0.75 MG, Tablet Oral Claudia 10/19/2013 [facility] Furosemide, 20 MG, Tablet Oral Claudia 10/19/2013 [facility] Furosemide, 20 MG, Tablet Oral [place]ia 10/12/2013 [facility] ROPINIRole HCl, 0.25 MG, Tablet Oral Claudia 10/06/2013 [facility] Allergies, Adverse Reactions, Alerts Substance Category Reaction Severity Reaction type Status Date Reported Comments Source morphine Assertion Itching Drug allergy Active 09/29/2013 [facility] [place] Morphine Derivatives Datatype( AL1.2)-DA Active 10/06/2013 Home [facility] clindamycin Assertion Drug allergy Active [facility] [place] methadone Assertion Drug allergy Active [facility] [place] Dilaudid Assertion Drug allergy Active [facility] [place] Immunizations No Data Provided for This Section Results Order Name Results Value Reference Range Date Interpretation Comments Source ELECTROLYTES Sodium Lvl 140 135 - 145 05/09/2017 [facility] ELECTROLYTES Potassium Lvl 4.4 3.5 - 5.1 05/09/2017 [facility] ELECTROLYTES Chloride Lvl 100 95 - 109 05/09/2017 [facility] ELECTROLYTES CO2 37 24 - 32 05/09/2017 [facility] ELECTROLYTES AGAP 7.4 10.0 - 20.0 05/09/2017 [facility] Pathology Reports No Data Provided for This Section Diagnostic Reports Report Value Date Source Ext Artery Single Level Bilat US EXAM: ULTRASOUND BILATERAL LOWER EXTREMITIES SINGLE LEVEL ANKLE BRACHIAL INDEX DATE: 05/16/2017 8:39 AM [facility] INDICATION: - I73.9 Peripheral vascular disease, unspecified. [...] lower extremity arterial duplex Doppler ultrasound 05/16/2017 [facility] Spine cervical wo contrast MRI Patient Name: LAKEISHA GIL : 1945; Age: 71 years y/o Female MR: [id number] Study: Spine cervical wo contrast MRI 05/09/2017 8:54 AM [facility] Ordering Physician: Zelda Shea MD Clinical Indication: [...] above in the findings. SL: [id number] 05/09/2017 [facility] Spine lumbar 2 or 3 views DX [place] lumbar 2 or 3 views DX COMPARISON: [...] Interval removal of bone fusion stimulator. SL: [id number] 05/09/2017 [facility] Consultation Notes No Data Provided for This Section Discharge Summaries No Data Provided for This Section History and Physicals No Data Provided for This Section Vital Signs Vital Sign Value Date Comments Source Heart Rate 56 05/09/2017 [facility] Systolic (mm Hg) 156 05/09/2017 [facility] Diastolic (mm Hg) 95 05/09/2017 [facility] Heart Rate 55 05/09/2017 [facility] Systolic (mm Hg) 158 05/09/2017 [facility] Diastolic (mm Hg) 89 05/09/2017 [facility] Heart Rate 51 05/09/2017 [facility] Systolic (mm Hg) 112 05/09/2017 [facility] Diastolic (mm Hg) 54 05/09/2017 [facility] Temperature Oral (F) 97.6 F 05/09/2017 [facility] Weight 120.455 05/08/2017 [facility] BMI Calculated 45.58 05/08/2017 [facility] Height 162.56 cm 05/08/2017 [facility] Encounters Location Location Details Encounter Type Encounter Number Reason For Visit Attending Provider ADM Date DC Date Status Source [place] [address] Outpatient [id number] 10/06/2013 11/12/2013 [facility]charged [facility] Outpatient [id number] Zelda Shea 05/09/2017 05/09/2017 [facility] [place] Out[facility] Diag Services [id number] Zelda Shea 05/16/2017 05/17/2017 [facility] Procedures Procedure Code Date Perfomer Comments Source Primary reverse polarity total prostheti c replacement of shoulder joint using cement [id number] 10/04/2013 [facility] [place] Carpal tunnel release<sup>1</sup> [id number] 06/23/2008 twice 1997, 2008 [facility] [place] Cholecystectomy [id number] 06/23/2003 [facility] [place] Excision of mass of neck 69147 4000 06/23/1996 [facility] [place] Breast biopsy and related procedures [id number] 06/23/1988 [facility] [place] Hysterectomy [id number] 06/23/1985 [facility] [place] Cervical spinal fusion [id number] 06/23/1972 [facility] [place] Tonsillectomy [id number] 06/23/1951 [facility] [place] Arthroplasty of shoulder [id number] [facility] [place] Back fusion<sup>2</sup> [id number] 004 5 surgery 2004, 2012 [facility] [place] Fasciotomy [id number] [facility] [place] [id number] [place] Assessment and Plan No Data Provided for [...] No; Reg Smoking Cessation Counseling No [facility] [place] Social History TypeResponse Substance Abuse Previous Treatment: None. Sexual Sexually active: No. Exercise Exercise duration: 0. Employment/School Operates hazardous equipment: No. Alcohol Previous treatment: None. Alcohol use interferes with work or home: No. Smoking Status Never smoker; Previous treatment: None; Exposure to Tobacco Smoke None; Cigarette Smoking Last 365 Days No; Reg Smoking Cessation Counseling No 09/29/2013 [facility] Family History No Data Provided for This Section Advance Directives No Data Provided for This Section Functional Status No Data Provided for This Section
--- OUTSIDE RECORDS SUMMARY | 2020-02-14 09:18 | XMS REPORT | Continuity of Care Document ---
Author Author [facility] Organization [facility] Address 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 Name Role Phone DO Wilbur HEATON PCP NENA KONX Attphys Unavailable Wilbur HEATON Attphys Unavailable PATY MICHEL Attphys Unavailable Tootie DUNAWAY Attphys Unavailable PHIL HAMILTON Attphys Unavailable MANDI REBOLLAR Attphys Unavailable LU GUTHRIE Attphys Unavailable Zelda Shea Attphys NENA KNOX Admphys Unavailable MANDI REBOLLAR Admphys Unavailable LU GUTHRIE Admphys Unavailable Payers Payer Name Policy Type Policy Number Effective Date Expiration Date S jose Medicare A & B [id number] 2012 00:00:00 [facility] [employer] Medicare Supplement Plan [id number] 2012 00:00 :00 [facility] Cdc Review Covid19 [id number] [facility] Problems Condition Name Condition Details Condition Category Status Onset Date Resolution Date Last Treatment Date Treating Clinician Comments Source Back pain Back pain Disease Active 2017-06-03 00:00:00 [facility] Chronic pain disorder Chronic pain disorder Disease Active 201 01-01-05 00:00:00 [facility] Pre-op testing Pre-op testing Disease Active 2017-05-27 00:00:00 [facility] DX: M54.12=RADICULOPATHY, CERVICAL REGIO DX: M54.12=RADICULOPATHY, CERVICAL REGIO Active 04/09/2017 [facility] Active 2017-04-09 00:00:00 2017-05-09 07:25:00 Praveen Wade Cellulitis of left lower leg Cellulitis of left lower leg Problem Active 2014-07-29 00:00:00 [facility] A/Care Joint Replacement A/Ca re Joint Replacement [...] shoulder pain Left shoulder pain Problem Active [facility] 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 [facility], OPID [place] Problem Resolved 2017-05-19 01:59:01 Praveen Wade Gastroesophageal reflux disease (disorder) Gastroesophageal reflux disease (disorder) Active Problem 05/19/2017 [facility] OPID [place] Problem Active 2017-05-19 01:59:01 Praveen Wade Anxiety (finding) Anxi ety (finding) Active Problem 05/19/2017 [facility]ID [place] Problem Active 2017-05-19 01: 59:01 Praveen Wade Chronic pain (finding) School A[employer] akhil pain (finding) Active Problem 05/19/2017 [facility] OPID [place] Problem Active 2017-05-19 01:59:01 [facility] Mauro Depression - motion (qualifier value) Depression - motion (qualifier value) Active Problem 05/19/2017 [facility] OPID [place] Problem Active 2017-05-19 01:59:01 Praveen Wade Eye glasses, device (physical object) Eye glasses, device (physical object) Active Problem 05/19/2017 [facility] OPI [place] Problem Active 2017-05-19 01:59:01 Praveen Wade Heel injury (disorder) Heel injury (disorder) Active Problem 05/19/2017 [facility]ID [place] Problem Active 2017-05-19 01:59:01 [facility] Mauro Neuropathy (disorder) Neur opathy (disorder) Active Problem 05/19/2017 [facility]ID [place] Problem Active 2017-05-19 01:59:01 Praveen Wade Numbness (finding) Numb ness (finding) Active Problem 05/19/2017 leg [facility] OPID [place] Problem Active 2017-05-19 01:59:01 [facility] Mauro Osteoarthritis (disorder) Oste oarthritis (disorder) Active Problem 05/19/2017 [facility]ID [place] Problem Active 2017-05-19 01:59:01 Praveen Wade Restless legs (disorder) Rest less legs (disorder) Active Problem 05/19/2017 [facility] AD[facility] Problem Active 2017-05-19 01:59:01 Praveen Wade Seasonal allergy (disorder) Se asonal allergy (disorder) Active Problem 05/19/2017 [facility] OPIJarred [facility] Problem Active 2017-05-19 01:59:01 Praveen Wade Finding of walking aid use (finding) Finding of walking aid use (finding) Active Problem 05/19/2017 [facility] OPIJarred [place] Problem Active 2017-05-19 01:59:01 [facility] LT SHOULDER LT S HOULDER Active [facility] Diagnosis Active 2014-02-19 13:28:00 Praveen Wade OTH ABN AND INCONCLUSIVE FINDINGS ON DX OTH ABN AND INCONCLUSIVE FINDINGS ON DX Active [facility] Diagnosis Active 2017-04-14 12:56:00 Praveen Wade RADICULOPATHY, CERVICAL REGION RADICULOPATHY, CERVICAL REGION Active [facility] Diagnosis Active 2017-05-09 07:25 :00 Praveen Wade Allergies, Adverse Reactions, Alerts Allergy Name Allergy Type Status Severity Reaction(s) Onset Date Inacti ve Date Treating Clinician Comments Source morphine DA Active 2019-10-12 00:00:00 [facility] clindamycin DA Active 2019-10-12 00:00:00 [facility] hydromorphone DA Active SV 2019-10-12 00:00:00 [facility] methadone DA Active 2019-10-12 00:00:00 [facility] morphine DA Active SV 2019-07-28 00:00:00 [facility] clindamycin DA Active SV 2019-07-28 00:00:00 [facility] hydromorphone DA Active SV 2019-07-28 00:00:00 [facility] methadone DA Active SV 2019-07-28 00:00:00 [facility] Morphine Allergy to substance Active 2019-07-06 00:00:00 [facility] morphine DA Active 2019-05-17 00:00:00 [facility] clindamycin DA Active SV 2019-05-17 00:00:00 [facility] hydromorphone DA Active SV 2019-05-17 00:00:00 [facility] methadone DA Active SV 2019-05-17 00:00:00 [facility] morphine DA Active SV 2019-04-23 00:00:00 [facility] clindamycin DA Active SV 2019-04-23 00:00:00 [facility] hydromorphone DA Active SV 2019-04-23 00:00:00 [facility] methadone DA Active SV 2019-04-23 00:00:00 [facility] morphine DA Active SV 2018-02-20 00:00:00 [facility] clindamycin DA Active SV 2018-02-20 00:00:00 [facility] hydromorphone DA Active SV 2018-02-20 00:00:00 [facility] methadone DA Active SV 2018-02-20 00:00:00 [facility] hydromorphone DA Active SV 2018-02-10 00:00:00 [facility] morphine DA Active SV 2017-12-30 00:00:00 [facility] clindamycin DA Active SV 2017-12-30 00:00:00 [facility] methadone DA Active SV 2017-12-30 00:00:00 [facility] Clindamycin Propensity to adverse reactions Active Itc carlos, Nausea Only 2017-05-21 00:00:00 [facility] Hydromorphone (Bulk) Propensity to adverse reactions Active Other (See Comments) 2017-05-21 00:00:00 "black out"-no recoll ection of what happened [facility] Methadone Propensity to adverse reactions Active Othe r (See Comments) 2017-05-21 00:00:00 confusion [facility] Morphine Propensity to adverse reactions Active Itching 2017-04 00:00:00 [facility] Morphine Derivatives Morphine Derivatives Active 2013-10-06 00:00:00 [facility] morphine morphine Active 2013-09-29 00:00:00 [facility] clindamycin clindamycin Active [facility] methadone methadone Active Heri armando Wade Dilaudid Dilaudid Active Memnaheed Saleh Social History Social Habit Start Date Stop Date Quantity Comments Source Sex Assigned At [facility] Social History 2013-09-29 15:44:12 2013-09-29 15:44:12 [facility] Smoking Status Start Date Stop Date Source Never smoker [facility] Medications Ordered Medication Name Filled Medication Name Start Date Stop Da te Current Medication? Ordering Clinician Indication Dosage Frequency Signature (SIG) Comments Components Source Enoxaparin Sodium Enoxaparin Sodium 2020-01-19 08:57:00 Yes 40 Daily [facility] Hydrocodone/Apap 7.5MG-325MG Hydrocodone/Apap 7.5MG-325MG 07-21 14:41:00 2019-07-06 00:00:00 No 1 Every 6 Hours as nee ded for Pain [facility] Collagenase Collagenase 2017-07-21 14:41:00 2018-05-04 00:00:00 No 1 Use As Directed [facility] Ascorbic Acid Ascorbic Acid 2017-07-21 14:41:00 2017-10-28 00:00:00 No 500 Twice A Day [facility] Aspirin (Aspirin Ec) 81 Mg TABLET. Aspirin (Aspirin Ec) 81 Mg TABLET. 2017-07-21 14:41:00 2017-10-28 00:00:00 No 81 Every Morning [facility] Enoxaparin Sodium (Lovenox) 40 Mg/0.4 Ml INJ Enoxapari n Sodium (Lovenox) 40 Mg/0.4 Ml INJ 2017-07-21 14:41:00 2017-10-28 00:00:00 No 40 Daily At 1700 [facility] Ferrous Sulfate Ferrous Sulfate 2017-07-21 14:41:00 2017-10-28 00:00:00 No 325 Twice Daily With Meals [facility] Multivitamins/Minerals Multivitamins/Minerals 2017-07-21 14:41:0 0 2017-10-28 00:00:00 No 1 Daily [facility] Nystatin ([facility]) 15 Gm POWD Nystatin ([facility]) 15 Gm POWD 2017-0 07-21 14:41:2017-10-28 00:00:00 No 0 Daily [facility] Ondansetron Hcl/Pf (Ondansetron Hcl 4 Mg/2 Ml Vial) 4 Mg/2 Ml VIAL Ondansetron Hcl/Pf (Ondansetron Hcl 4 Mg/2 Ml Vial) 4 Mg/2 Ml VIAL 2017-07-21 14:41:00 2017-10-28 00:00:00 No 4 Every 4 Ho urs as needed for Nausea And Vomiting [facility] Twbzyjzswonl-Ixvm-Ptbkquag,Iso (Zosyn 3. 375 Gm Galaxy Bag) 3.375 Gm/50 Ml FROZ.PIGGY Edcqvhesdrfd-Mrzv-Ltmuyzrr,Iso (Zosyn 3. 375 Gm Galaxy Bag) 3.375 Gm/50 Ml FROZ.PIGGY 2017-07-21 14:41:00 2017-10-28 00:00:00 No 3.375 Every 6 Hours [facility] Silver (Silvasorb) 480 Ml GEL.ER.ML. Silver (Silvasorb) 480 Ml GEL.ER.ML. 2017-07-21 14:41:00 2017-10-28 00:00:00 No 1 Use A s Directed [facility] Vancomycin/0.9% Sod Chloride (Vancomycin -0.9% Nacl 1 G/250) 1 Gm/250 Ml PLAST..BAG Vancomycin/0.9% Sod Chloride (Vancomycin -0.9% Nacl 1 G/250) 1 Gm/250 Ml PLAST..BAG 2017-07-21 14:41:00 2017-10-28 00:00:00 No 1 Every 12 Hours [facility] gabapentin (NEURONTIN) 800 MG tablet 2017-05-21 11:39:01 Yes 800mg Q.25D Take 800 mg by mouth 4 (four) times daily. [facility] pramipexole (MIRAPEX) 1 MG tablet 2017-05-21 11:39:01 Yes 2mg Q.25D Take 2 mg by mouth 4 (four) times daily. [facility] DULoxetine (CYMBALTA) 60 MG capsule 2017-05-21 11:39:01 Yes 60mg Q.5D Take 60 mg by mouth 2 (two) times daily. [facility] HYDROcodone-acetaminophen (NORCO 5-325) 5-325 mg per tablet 2017-05-21 11:39:01 Yes 1{tbl} Take 1 tab let by mouth every 6 (six) hours as needed for Pain. [facility] amitriptyline (ELAVIL) 10 MG tablet 2017-05-21 11:39:01 Yes 10mg QD Take 10 mg by mouth nightly. [facility] metoprolol (LOPRESSOR) 25 MG tablet 2017-05-21 11:39:01 Yes 25mg QD Take 25 mg by mouth nightly. [facility] mupirocin (BACTROBAN) 2 % ointment 2017-05-21 11:39:01 Yes Q.5D Apply topically 2 (two) times daily Open wound left heel . [facility] pantoprazole (PROTONIX) 40 MG tablet 2017-05-21 11:39:00 Ye s 40mg QD Take 40 mg by mouth daily. [facility] furosemide (LASIX) 40 MG tablet 2017-05-21 11:39:00 Yes 40mg Q.5D Take 40 mg by mouth 2 (two) times daily. [facility] pantoprazole 40 mg oral enteric coated tablet 2017-05-08 15:32:0 0 Yes 40 mg = 1 tab, PO, Daily, # 90 tab, 1 Refill(s) Praveen Wade gabapentin 800 MG Oral Tablet 2017-05-08 15:31:00 Yes 800 mg = 1 tab, PO, TID, # 90 tab, 3 Refill(s) Heri Wade amitriptyline 100 mg oral tablet 2017-05-08 15:31:00 Yes 100 mg = 1 tab, PO, Bedtime, # 90 tab, 0 Refill(s) Praveen Wade Furosemide 40 MG Oral Tablet 2017-05-08 15:31:00 Yes 40 mg = 1 tab, PO, Daily, # 90 tab, 1 Refill(s) Alex Wade Mirapex 2017-05-08 15:30:00 Yes 2 mg, PO, TI D, 0 Refill(s) [facility] cephalexin 500 mg oral tablet 2017-05-08 15:30:00 Yes 500 mg = 1 tab, PO, TID, # 28 tab, 0 Refill(s) Heri Wade metoprolol 25 mg oral tablet, extended release 2017-05-08 15:30: 00 Yes 25 mg = 1 tab, PO, Bedtime, # 90 tab, 3 Refill(s) [facility] Collagenase Clostridium Hist. (Santyl) 15 Gm OINT...G. Collagenase Clostridium Hist. (Santyl) 15 Gm OINT...G. 2016-09-16 13:24:00 2017-07-18 00:00:00 No [address] [facility] Lactobacillus Acidophilus (Acidophilus-Pectin Capsule) 1 Tab TAB Lactobacillus Acidophilus (Acidophilus-Pectin Capsule) 1 Tab TAB 2016-09-16 13:24:00 2016-10-23 00:00:00 No 1 Twice A Day [facility] Silver (Silvasorb) 480 Ml GEL.ER.ML. Silver (Silvasorb) 480 Ml GEL.ER.ML. 2016-09-16 13:24:00 2016-10-23 00:00:00 No 1 Daily [facility] Collagenase Clostridium Hist. (Santyl) 15 Gm OINT...G. Collagenase Clostridium Hist. (Santyl) 15 Gm OINT...G. 2016-07-12 09:56:00 2016-10-23 00:00:00 No 0 Daily [facility] Acetaminophen Acetaminophen 2016-07-12 09:56:00 2016-08-31 00:00:00 No 650 Every 4 Hours as needed for Pain And Temperature [facility] Albuterol/Ipratropium Nebulize Albuterol/Ipratropium Nebuliz e 2016-07-12 09:56:00 2016-08-31 00:00:00 No 3 Rt Q6h [facility] Enoxaparin Sodium (Lovenox) 40 Mg/0.4 Ml INJ Enoxapari n Sodium (Lovenox) 40 Mg/0.4 Ml INJ 2016-07-12 09:56:00 2016-08-31 00:00:00 No 40 Daily At 1700 [facility] Famotidine Famotidine 2016-07-12 09:56:00 2016-08-31 00:00:00 No 20 Twice Daily Before Meals [facility] Ketorolac Tromethamine Ketorolac Tromethamine 2016-07-12 09:56:0 0 2016-08-31 00:00:00 No 30 Every 6 Hours as needed for Ganga n [facility] Nystatin ([facility]) 15 Gm POWD Nystatin ([facility]) 15 Gm POWD 2016-0 07-12 09:56:00 2016-08-31 00:00:00 No 0 Twice A Day [facility] Nystatin Nystatin 2016-07-12 09:56:00 2016-08-31 00:00:00 No 0 Twice A Day [facility] Ondansetron Hcl/Pf (Ondansetron Hcl 4 Mg/2 Ml Vial) 4 Mg/2 Ml VIAL Ondansetron Hcl/Pf (Ondansetron Hcl 4 Mg/2 Ml Vial) 4 Mg/2 Ml VIAL 2016-07-12 09:56:00 2016-08-31 00:00:00 No 4 Every 4 Ho urs as needed for Nausea And Vomiting [facility] Pyoedjqfjkli-Ldks-Txwazuzp,Iso (Zosyn 3. 375 Gm Galaxy Bag) 3.375 Gm/50 Ml FROZ.PIGGY Ckptvxbnallx-Qdpb-Ykldvpzy,Iso (Zosyn 3. 375 Gm Galaxy Bag) 3.375 Gm/50 Ml FROZ.PIGGY 2016-07-12 09:56:00 2016-08-31 00:00:00 No 3.375 Every 8 Hours [facility] Pramipexole Dihydrochloride (Mirapex) 1 Mg TAB Pramipe xole Dihydrochloride (Mirapex) 1 Mg TAB 2016-07-12 09:56:00 2016-08-31 00:00:00 No 1 Three Times A Day [facility] Sucralfate (Carafate) 1 Gm TABLET Sucralfate (Carafate) 1 Gm TABLET 2016-07-12 09:56:00 2016-08-31 00:00:00 No 1 Before Meals And At Bedtime [facility] Vancomycin/0.9% Sod Chloride (Vancomycin -0.9% Nacl 1 G/250) 1 Gm/250 Ml PLAST..BAG Vancomycin/0.9% Sod Chloride (Vancomycin -0.9% Nacl 1 G/250) 1 Gm/250 Ml PLAST..BAG 2016-07-12 09:56:00 2016-08-31 00:00:00 No 1 Every 12 Hours [facility] [id number] [id number] 2014-08-03 13:36:00 2015-11-10 00:00:00 No 1 Twice A Day [facility] [id number] 2014-08-03 13:36:00 2015-11-10 00:00:00 No 1 Daily [facility] Sulfamethoxazole/Trimethoprim (Bactrim Ds Tablet) 1 Ea ch TABLET Sulfamethoxazole/Trimethoprim (Bactrim Ds Tablet) 1 Each TABLET 2014-08-03 13:36:00 2015-11-10 00:00:00 No 1 Twice A Day [facility] Lisinopril, 5 MG, Tablet 2013-10-29 00:00:00 Yane Taylor [facility] Acetaminophen, 500 MG, Tablet 2013-10-27 00:00:00 Yane Taylor [facility] Azithromycin, 1 GM, Packet 2013-10-27 00:00:00 2013-10-31 06:00:00 No Mark Taylor [facility]ermo Pramipexole Dihydrochloride, 0.75 MG, Tablet 2013-10-19 00 :00:00 No Mark Taylor [facility] Furosemide, 20 MG, Tablet 2013-10-19 00:00:00 Yane Taylor [facility] Furosemide, 20 MG, Tablet 2013-10-12 00:00:00 2013-10-19 0 6:00:00 Yane Taylor [facility]ermo ROPINIRole HCl, 0.25 MG, Tablet 2013-10-06 00:00:10-19 06:00:00 No Mark paiz Mauro Bumetanide Bumetanide Yes 1 As Needed [facility] Diclofenac Sodium (Voltaren) 100 Gm GEL..GRAM. Diclofe nac Sodium (Voltaren) 100 Gm GEL..GRAM. Yes [facility] Digoxin Digoxin Yes 250 Bedtime [facility] Docusate Sodium (Colace) 100 Mg CAP Docusate Sodium (Colace) 100 Mg C AP Yes 100 Daily [facility] Duloxetine Hcl (Cymbalta) 30 Mg CAPSULE. Duloxetine Hcl (Cymbalta) 30 Mg CAPSULE. Yes 60 Twice A Day [facility] Gabapentin (Neurontin) 300 Mg CAPSULE Gabapentin (Neurontin) 300 Mg CAPSULE Yes 800 Three Times A Day [facility] Lactobac Cmb #3/Fos/Pantethine (Probiotic & Acidophilu s Cap) 1 Each CAPSULE Lactobac Cmb #3/Fos/Pantethine (Probiotic & Acidophilus Cap) 1 Each CAPSULE Yes 1 Daily [facility] Melatonin Melatonin Yes 10 [facility] Metoprolol Tartrate Metoprolol Tartrate Yes 25 Twice A Day [facility] Pantoprazole Sodium (Protonix) 40 Mg TABLET. Pantopr azole Sodium (Protonix) 40 Mg TABLET. Yes 40 Daily [facility] Pramipexole Dihydrochloride (Mirapex) 1 Mg TAB Pramipe xole Dihydrochloride (Mirapex) 1 Mg TAB Yes 4 Three Times A Day [facility] Tylenol Es Tylenol Es Yes [facility] Vitamin D Vitamin D Yes 1.25 [facility] Aspirin (Aspir-Low) 81 Mg TABLET. Aspirin (Aspir-Low) 81 Mg TA BLET. 2020-01-19 00:00:00 No 81 Daily [facility] Bentyl Bentyl 2020-01-11 00:00:00 No Three Times A Day [facility] Mv-Mn/Iron/Folic Acid/Herb 190 (Vitamin D3 Complete Ca plet) 1 Each TABLET Mv- Mn/Iron/Folic Acid/Herb 190 (Vitamin D3 Complete Caplet) 1 Each TABLET 2020-01-11 00:00:00 No 1.25 Weekly [facility] Risedronate Sodium (Actonel) 35 Mg TABLET Risedronate Sodium (Actonel) 35 Mg TABLET 2020-01-11 00:00:00 No 35 [facility] Docusate Sodium (Colace) 100 Mg CAP Docusate Sodium (Colace) 100 Mg CAP 2019-07-06 00:00:00 No 100 Daily [facility] Morphine Sulfate (Morphine Sulfate Er) 30 Mg TABLET.ER Morphine Sulfate (Morphine Sulfate Er) 30 Mg TABLET.ER 2019-07-06 00:00:00 No 15 Daily [facility] Nerve Renew B1 &B12 Nerve Renew B1 &B12 2019-07-06 00:00:00 No 1 Twice A Day [facility] Nerve Repair Nerve Repair 2019-07-06 00:00:00 No 1 Daily [facility] Polyethylene Glycol 3350 (Miralax) 17 Gm POWD.PACK Jonathan yethylene Glycol 3350 (Miralax) 17 Gm POWD.PACK 2019-07-06 00:00:00 No 1 Daily [facility] Rivaroxaban (Xarelto) 10 Mg TABLET Rivaroxaban (Xarelto) 10 Mg T ABLET 2019-07-06 00:00:00 No [facility] Bent Bent 2018-10-14 00:00:00 No [facility] Amitriptyline Hcl Amitriptyline Hcl 2018-05-04 00:00:00 No 10 Daily [facility] Furosemide (Lasix) 40 Mg TABLET Furosemide (Lasix) 40 Mg TABLET 2017-07-21 00:00:00 No 40 Twice A Day [facility] Gabapentin Enacarbil (Horizant) 600 Mg TAB.ER.24H Yenifer pentin Enacarbil (Horizant) 600 Mg TAB.ER.24H 2017-07-18 00:00:00 No [facility] Silver (Silvasorb) 480 Ml GEL.ER.ML. Silver (Silvasorb) 480 Ml G EL.ER.ML. 2017-07-18 00:00:[address] [facility] Sucralfate (Carafate) 1 Gm/10 Ml ORAL.SUSP Sucralfate (Carafate) 1 Gm/10 Ml ORAL.SUSP 2016-10-23 00:00:00 No 1 Four Times [place] ly [facility] Acetaminophen Acetaminophen 2016-08-31 00:00:00 No 650 Q4hr Prn for Pain And Fever [facility] Ciclopirox Olamine (Ciclopirox) 15 Gm CREAM..G. Ciclop irox Olamine (Ciclopirox) 15 Gm CREAM..G. 2016-08-31 00:00:00 No 15 Daily [facility] Doxcycline Monohyde Doxcycline Monohyde 2016-08-31 00:00:00 No 100 Twice A Day [facility] Meloxicam (Mobic) 15 Mg TABLET Meloxicam (Mobic) 15 Mg TABLET 2016-08-31 00:00:00 No 50 Daily [facility] Furosemide (Lasix) 40 Mg TABLET Furosemide (Lasix) 40 Mg TABLET 2016-07-02 00:00:00 No 20 Bedtime [facility] Metolazone Metolazone 2016-07-01 00:00:00 No 2.5 [place] ly [facility] Tizanidine Hcl (Zanaflex) 4 Mg TABLET Tizanidine Hcl (Zanaflex) 4 Mg TABLET 2016-07-01 00:00:00 No 4 As Needed [facility] Ferrous Sulfate Ferrous Sulfate 2015-11-10 00:00:00 No 65 Daily [facility] Furosemide (Lasix) 40 Mg TABLET Furosemide (Lasix) 40 Mg TABLET 2015-11-10 00:00:00 No 40 Daily [facility] Pramipexole Di-Hcl (Mirapex) 0.5 Mg TABLET Pramipexole Di-Hcl (Mirapex) 0.5 Mg TABLET 2015-11-10 00:00:00 No .5 Twice A Day [facility] Ranitidine Hcl (Zantac) 150 Mg TABLET Ranitidine Hcl (Zantac) 15 0 Mg TABLET 2015-11-10 00:00:00 No 150 Twice A Day [facility] Tramadol Hcl (Ultram 50MG*) 50 Mg TAB Tramadol Hcl (Ultram 50MG* ) 50 Mg TAB 2015-11-10 00:00:00 No 50 As Needed [facility] Pramipexole Di-Hcl (Mirapex) 0.75 Mg TABLET Pramipexol e Di-Hcl (Mirapex) 0.75 Mg TABLET 2014 00:00:00 No [facility] Hydrocodone Bit/Acetaminophen ([place] 7.5-325 Tablet) 1 Each TABLET Hydrocodone Bit/Acetaminophen ([place] 7.5-325 Tablet) 1 Each TABLET 00:00:00 No [facility] Vital Signs Vital Name Observation Time Observation Value Comments Source Body Temperature 2020-01-19 12:12:00 98.3 [degF] [facility] BMI (Body Mass Index) 2020-01-19 00:44:00 43.9 kg/m2 [facility] Weight 2020-01-18 16:43:00 256 [lb_av] [facility] Heart Rate 2017-05-09 17:15:00 [facility] Systolic (mm Hg) 2017-05-09 17:15:00 Heri rial [facility]uro Diastolic (mm Hg) 2017-05-09 17:15:00 Mem orial [facility] Heart Rate 2017-05-09 17:08:00 [facility] Systolic (mm Hg) 2017-05-09 17:08:00 Heri rial [place] Diastolic (mm Hg) 2017-05-09 17:08:00 Mem orial [place] Heart Rate 2017-05-09 13:49:00 [facility] [place] Systolic (mm Hg) 2017-05-09 13:49:00 Heri rial [facility]uro Diastolic (mm Hg) 2017-05-09 13:49:00 Mem orial [place] Temperature Oral (F) 2017-05-09 13:49:00 97.6 F [facility] Weight 2017-05-08 15:33:00 [facility] BMI Calculated 2017-05-08 15:33:00 Marco Saleh Height 2017-05-08 15:33:00 162.56 cm [facility] Procedures Procedure Date / Time Performed Performing Clinician [facility] X-ray of chest, two views 2020-01-03 00:00:[address] [facility] EGD BIOPSY SINGLE/MULTIPLE 2019-07-09 00:00:[address] 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 2013-10-04 05:00:00 [facility] Carpal tunnel release<sup>1</sup> 2008-06-23 06:00:00 [facility] Cholecystectomy 2003-06-23 06:00:00 [facility] Excision of mass of neck 1996-06-23 06:00:00 [facility] orial [place] Breast biopsy and related procedures 1988-06-23 06:00:00 [facility] Hysterectomy 1985-06-23 06:00:00 [facility] Cervical spinal fusion 1972-06-23 [facility] 1951-[facility]-23 06:00:00 [facility] Arthroplasty of shoulder Alex miller [place] Back fusion<sup>2</sup> [facility] Fasciotomy [facility] Foot joint operations [facility] Plan of Care Planned Activity Planned Date Details Comments Source Instructions Dislocation - Hip [facility] Instructions Post Operative Pain [facility] Encounters Start Date/Time End Date/Time Encounter Type Admission Type [facility] Facility Care Department Encounter ID Source 2020-01-18 09:22:00 2020-01-19 15:18:00 Discharged Inpatient (obs) 3 NENA KNOX [facility] [id number] [facility] 2020-01-03 09:21:00 2020-01-03 09:21:00 Registered Clinic 3 KEYSHAWN HEATON [facility] [id number] [facility] 2019-07-09 05:15:00 2019-07-09 05:15:00 Registered Surgical Day Care [facility] [id number] [facility] 2017-10-27 19:21:00 2017-10-30 19:12:00 Discharged Inpatient ER MANDI REBOLLAR [facility] [id number] [facility] 2017-07-18 15:45:00 2017-07-21 20:53:00 Discharged Inpatient ER MANDI REBOLLAR [facility] [id number] [facility] 2017-05-16 08:26:00 2017-05-16 23:59:00 Outpatient Rukhsana Shea i MHOIB MHOIB [id number] 2017-05-09 07:15:00 2017-05-09 12:18:00 Outpatient Rukhsana Shea i MHSE MHSE [id number] Results Test Description Test Time Test Comments Results Result Comments Source Blood hemoglobin measurement (moles/volume) 2020-01-19 05:00 :00 Test Item Hemoglobin (test code = 43164-3) 9.7 12.0-16.0 [facility] hematocrit (volume fraction)2020-01-19 05:00:00* Test Item Value Reference Range Interpretation Comments Hematocrit (test code = 4544-3) 31.6 34.2-44.1 [facility] AP [facility]-2 NFVCO0822-03-19 10:42:00 [place] [address] Patient Name: LAKEISHA GIL MR #: [id number] : 1945 Age/Sex: 74/F Req #: [id number] Adm Physician: NENA KNOX MD Ordered by: NENA KNOX MD Report #: [id number] [facility] Procedure: [id number] DX/PELVIS A P 1-2 VIEWS Exam Date: 01/18/20 Exam Time: 1025 REPORT STATUS: Signed EXAMINATION: PELVIS AP 1-2 VIEWS INDICATION: Postoperative COMPARISON: None FINDINGS: AP view of the pelvis demonstrates postoperative findings of right total hip replacement. Alignment is anatomic. No unexpected fracture. Hardware intact. Moderate degenerative changes of the nulato left hip joint. Phleboliths in the pelvis. IMPRESSION: Anatomic alignment status post right total hip replacement. Signed by: Jamel Pike MD on 01/18/2020 10:43 A M Dictated By: JAMEL PIKE MD 1043 Transcribed By: GEOFFREY on 01/18/20 1043 COPY TO: NENA KNOX MD Fluoroscopic procedure less than one hour [id number] 09:35:00* Test Item Value Reference Range Interpretation Comments Coronavirus (PCR) (test code = Coronavirus (PCR)) NOT DETECTED NOTD ETECTED Hologic Aptima SARS-CoV-2 assay is a nucleic amplification test intended for the qualitative detection of RNA from SARS-CoV-2 from nasopharyngeal (MANAGER PROTEIN) specimens . It is used under Emergency [...] for reprat testing oc clinically indicated.Tesing performed by:[facility] Laboratory [address] [place] [address] [id number] [id number], Nick Echevarria MD, PhD [facility] 2 [id number] 12:34:00 [facility] [address] [address] Patient Name: LAKEISHA GIL MR #: [id number] : 1945 Age/Sex: 74/F Req #: [id number] Adm Physician: Ordered by: KEYSHAWN HEATON DO Report #: [id number] Location: [facility]/Bed: Procedure: [id number] DX/CHEST 2 VIEWS Exam Date: 01/03/20 Exam [...] DO - XR HIP W/PEL UNI 2+V [id number] 04:40:00 FAX: Tari Elaine [phone] [place]: St: REG FAX: Y Keyshawn Heaton DO [phone] Name: LAKESIHA GIL [facility] : 1945 Age/S: 74/F [address] [facility] Unit #: [id number] Loc: [place] [address] Phys: Tari Macias MD Acct: [id number] Dis Date: Status: REG ER PHONE #: [phone] Exam Date: 11/13/2019 0409 FAX #: [phone] Reason: pain s/p fall EXAMS: CPT CODE: [id number] XR HIP W/PEL UNI 2+V [place] [address] EXAM: - XR HIP W/PEL UNI 2+V [...] By: [email or web address] Orig Print D/T: S: 11/13/2019 (1674) PAGE 1 Signed Report BASIC METABOLIC [id number] 03:31:00* Test Item Value Reference Range Interpretation [...] code = CA) 8.7 mg/dL 8.5-10.1 N [id number] 03:31:00* Test Item Value Reference Range Interpretation Comments MAGNESIUM (test code = MAG) 2.4 mg/dL 1.8-2.4 N [id number] 03:31:00* Test Item Value Reference Range Interpretation Comments TROPONIN-I (test code = TROPI) <0.015 ng/mL 0-0.045 N [id number] 03:31:00* Test Item Value Reference Range Interpretation [...] AT ANADDITIONAL CHARGE TO THE PATIENT. PROTHROMBIN [id number] 03:31:00* Test Item Value Reference Range Interpretation [...] (2.5-3.5) IS PATIENT ON ANTICOAGULANTS? NTHROMBOPLASTIN TIME [id number] 03:31:00* Test Item Value Reference Range Interpretation Comments THROMBOPLASTIN TIME PARTIAL (test code = PTT) 33.1 seconds 23.0-37. 0 N IS PATIENT ON ANTICOAGULANTS? N- XR CHEST 1 [id number] 03:31:00 FAX: Tari Elaine [phone] [place]: B St: [facility] FAX: Keyshawn Knowles DO [phone] Name: LAKEISHA GIL [facility] : 1945 Age/S: 74/F [address] Unit #: [id number] Loc: [place], [place] [address] Phys: Tari Macias MD Acct: [id number] Dis Date: Status: REG ER PHONE #: [phone] Exam Date: 11/13/2019255 FAX #: [phone] Reason: WEAKNESS EXAMS: CPT CODE: [id number] XR CHEST 1 V 68904 - XR CHEST 1 V, 11/13/2019 2:19 [...] RT(R) Trnscrd Date/Time/By: 11/13/2019 (033) : By: [email or web address] Orig Print D/T: S: 11/13/2019 (0339) PAGE 1 Signed Report CBC W/O [id number] 03:29:00* Test Item Value Reference Range Interpretation [...] MPV) 10.5 fL 6.7-11.0 N CBC W/O [id number] 03:23:00* Test Item Value Reference Range Interpretation [...] code = MPV) fL 6.7-11.0 BASIC METABOLIC [id number] 03:20:00* Test Item Value Reference Range Interpretation [...] CALCIUM (test code = CA) mg/dL 8.5-10.1 [id number] 03:20:00* Test Item Value Reference Range Interpretation Comments MAGNESIUM (test code = MAG) mg/dL 1.8-2.4 [id number] 03:20:00* Test Item Value Reference Range Interpretation Comments TROPONIN-I (test code = TROPI) ng/mL 0-0.045 [id number] 03:20:00* Test Item Value Reference Range Interpretation Comments ALCOHOL (test code = ALC) mg/dL 0-3 - CT C-SPINE W/O [id number] 03:17:00 Name: LAKEISHA GIL [facility] : 1945 Age/S: 74 / F [address] [facility] Unit #: [id number] Loc: [place] [address] Phys: Tari Macias MD Acct: [id number] Dis Date: Status: REG ER PHONE #: [phone] Exam Date: 11/13/2019252 FAX #: [phone] Reason: fall, head injury, neck pain EXAMS: CPT CODE: [id number] CT C-SPINE W/O CONTRAST 91407 EXAM: - CT C-SPINE W/O CONTRAST HISTORY: [...] Tari Macias MD; Bam Heaton DO Technologist:Robert Cain, RT(R)(CT) CTDI: DLP: Trnscb Date/Time: 11/13/2019 (316) [email or web address] Orig Print D/T: S: 11/13/2019 (319) PAGE 1 Signed Report - CT HEAD/BRAIN W/O [id number] 03:12:00 Name: LAKEISHA GIL [facility] : 1945 Age/S: 74 / F [address] [facility] Unit #: [id number] Loc: [place] [address] Phys: Tari Macias MD Acct: [id number] Di s Date: Status: REG ER PHONE #: Exam Date: 11/13/2019252 FAX #: Reason: fall, head injury EXAMS: CPT CODE: [id number] CT HEAD/BRAIN W/O CONT 31843 EXAM: - CT HEAD/BRAIN W/ O CONT [...] CC: Tari Macias MD; Keyshawn Heaton DO Technologist:RT Aguila(R)(CT) CTDI: DLP: Trnscb D ate/Time: 11/13/2019 (311) [email or web address] Orig Print D/T: S: 11/13/2019 (9710) PAGE 1 Signed Report [id number] 07:39:00* Test Item Value Reference Range Interpretation [...] This LDL result is a direct measurement.========= [id number] 23:32:00* Test Item Value Reference Range Interpretation Comments TROPONIN-I (test code = TROPI) <0.015 ng/mL 0-0.045 N COMMENTS TO OPERATIONS INTELLIGENCE: COLLECT 3 HOURS AFTER PREVIOUS [id number] 19:26:00* Test Item Value Reference Range Interpretation Comments TROPONIN-I (test code = TROPI) <0.015 ng/mL 0-0.045 N COMMENTS TO OPERATIONS INTELLIGENCE: COLLECT 3 HOURS AFTER PREVIOUS [id number] 16:54:00* Test Item Value Reference Range Interpretation Comments DIGOXIN (test code = DIG) 1.4 ng/mL 0.90-2.0 N NO TE: Spironolactone interference may cause a decrease inreported Digoxin results of 11-30 %. PROTHROMBIN [id number] 16:47:00* Test Item Value Reference Range Interpretation [...] Mechanical prosthetic heart valves (2.5-3.5) THROMBOPLASTIN TIME [id number] 16:47:00* Test Item Value Reference Range Interpretation Comments THROMBOPLASTIN TIME PARTIAL (test code = PTT) 31.3 seconds 23.0-37. 0 N B-TYPE NATRIURETIC [id number] 13:45:00* Test Item Value Reference Range Interpretation Comments B-TYPE NATRIURETIC PEPTIDE (test code = BNP) 59.81 pgram/mL 0-100 N BASIC METABOLIC [id number] 13:03:00* Test Item Value Reference Range Interpretation [...] code = CA) 8.6 mg/dL 8.5-10.1 N [id number] 13:03:00* Test Item Value Reference Range Interpretation Comments TROPONIN-I (test code = TROPI) <0.015 ng/mL 0-0.045 N BASIC METABOLIC [id number] 12:52:00* Test Item Value Reference Range Interpretation [...] CALCIUM (test code = CA) mg/dL 8.5-10.1 [id number] 12:52:00* Test Item Value Reference Range Interpretation Comments TROPONIN-I (test code = TROPI) ng/mL 0-0.045 CBC W/O [id number] 12:44:00* Test Item Value Reference Range Interpretation [...] fL 6.7-11.0 H - XR CHEST 1 [id number] 11:48:00 FAX: Dioni Benson [phone] [place]: B St: REG FAX: Keyshawn Knowles DO [phone] Name: LAKEISHA GIL [facility] : 1945 Age/S: 74/F [address] Unit #: [id number] Loc: [place] [address] Phys: Dioni Benson MD Acct: [id number] Dis Date: Status: REG ER PHONE #: [phone] Exam Date: 10/12/2019 1140 FAX #: [phone] Reason: CHEST PAIN EXAMS: CPT CODE: [id number] XR CHEST 1 V 99314 HISTORY: Chest pain. COMPARISON: June 08, 2019. [...] Keyshawn Lynn DO Technologist: Kiley Majano, RT(R); FAREED KOCH RT( R) Trnpard Date/Time/By: 10/12/2019 (1148) : By: [email or web address] Orig Print D/T: S: 10/12/2019 (9876) PAGE 1 Signed Report COMPREHENSIVE METABOLIC [id number] 11:31:00* Test Item Value Reference Range Interpretation [...] due to change in reagent. CBC W/AUTO [id number] 11:23:00* Test Item Value Reference Range Interpretation [...] (test code = MDIFF) NO CBC W/AUTO [id number] 11:22:00* Test Item Value Reference Range Interpretation [...] code = BA#) K/mm3 0.0-0.2 COMPREHENSIVE METABOLIC [id number] 11:22:00* Test Item Value Reference Range Interpretation [...] ALKP) IUnit/L 45-117 - CT C-SPINE W/O [id number] 05:45:00 Name: LAKEISHA GIL [facility] : 1945 Age/S: 73 / F [address] [facility] Unit #: [id number] Loc: [place] [address] Phys: Dioni Benson MD Acct: [id number] Dis Date: Status: REG ER PHONE #: [phone] Exam Date: 07/28/2019519 FAX #: [phone] Reason: Neck Pain EXAMS: CPT CODE: [id number] CT C-SPINE W/O CONTRAST 74234 CT of the brain without contrast and [...] 1 Signed Report (CONTINUED) Name: LAKEISHA GIL [facility] : 1945 Age/S: 73 / F [address] [facility] Unit #: [id number] Loc: [place] [address] Phys: Dioni Benson MD Acct: [id number] Dis Date: Status: REG ER PHONE #: [phone] Exam Date: 07/28/2019519 FAX #: [phone] Reason: Neck Pain EXAMS: CPT CODE: [id number] C-SPINE W/O CONTRAST 44228 < Continued> appearance to prior, the largest seen at the right C4. Impression: No acute intracranial hemmorhage or significant mass effect No evidence of acute osseous cervical fracture or traumatic subluxation Multiple Additional findings as above. at 0545 Reported and signed by: Estrella Ching M.D. CC: Dioni Benson MD; Ari Heaton Technologist:RT VICK CTDI: DLP: Trnscb Date/Time: 07/28/2019 (0545) [email or web address] Orig Print D/T: S: 07/28/2019 (0548) PAGE 2 Signed Report - CT HEAD/BRAIN W/O [id number] 05:45:00 Name: LAKEISHA GIL [facility] : 1945 Age/S: 73 / F [address] Unit #: [id number] Loc: [place] [address] Phys: Dioni Benson MD Acct: [id number] Di s Date: Status: REG ER PHONE #: [phone] Exam Date: 07/28/2019519 FAX #: [phone] Reason: HEADACHE EXAMS: CPT CODE: [id number] CT HEAD/BRAIN W/O CONT 72401 CT of the brain without c ontrast [...] 1 Signed Report (CONTINUED) Name: LAKEISHA GIL [facility] : 1945 Age/S: 73 / F [address] [facility] Unit #: [id number] Loc: [place], [place] [address] Phys: Dioni Benson MD Acct: [id number] Dis Date: Status: REG ER PHONE #: [phone] Exam Date: 07/28/2019519 FAX #: [phone] Reason: HEADACHE EXAMS: CPT CODE: [id number] HEAD/BRAIN W/O CONT 33380 < Continued> appearance to prior, the largest [...] (544) [email or web address] Orig Print D/T: S: 07/28/2019 (5290) PAGE 2 Signed Report - XR KNEE 3 V [id number] 05:42:00 FAX: Dioni Benson [phone] [place]: B St: REG FAX: Y Ari Heaton [phone] Name: LAKEISHA GIL [facility] : 1945 Age/S: 73/F [address] [facility] Unit #: [id number] Loc: [place] [address] Phys: Dioni Benson MD Acct: [id number] Dis Date: Status: REG ER PHONE #: [phone] Exam Date: 07/28/2019522 FAX #: [phone] Reason: KNEE PAIN EXAMS: CPT CODE: [id number] XR KNEE 3 V RT 70474 R16 EXAM: - XR KNEE 3 V [...] Heaton Technologist: RT VICK Trnscrd Date/Time/By: 07/28/2019 (05) : By: [email or web address] Orig Pr int D/T: S: 07/28/2019 (9516) PAGE 1 Signed Report - XR HIP W/PEL UNI 2+V RT 2019-07-28 05:41:00 FAX: Dioni Benson [phone] [place]: St: [facility] FAX: Y Ari Heaton [phone] Name: LAKEISHA GIL [facility] : 1945 Age/S: 73/F [address] [facility] Unit #: [id number] Loc: [place] [address] Phys: Dioni Benson MD Acct: [id number] Dis Date: Status: REG ER PHONE #: [phone] Exam Date: 07/28/2019 05 FAX #: [phone] Reason: pain s/p fall EXAMS: CPT CODE: [id number] XR HIP W/PEL UNI 2+V [place] 29788 R16 EXAM: - XR HIP W/PEL UNI [...] Ari Heaton Technologist: RT VICK Trnscrd Date/Time/By: 10/2019 (8141) : By: [email or web address] Orig Print D/T: S: 07/28/2019 (1857) PAGE 1 Signed Report - XR ANKLE 3 + V [id number] 05:41:00 FAX: Dioni Benson [phone] [place]: St: [facility] FAX: Y Ari Heaton [phone] Name: LAKEISHA GIL [facility] : 1945 Age/S: 73/F [address] [facility] Unit #: [id number] Loc: [place] [address] Phys: Dioni Benson MD Acct: [id number] Dis Date: Status: REG ER PHONE #: [phone] Exam Date: 07/28/2019525 FAX #: [phone] Reason: ANKLE PAIN EXAMS: CPT CODE: [id number] XR ANKLE 3 + V RT [address]326 R16 EXAM: - XR ANKLE 3 + [...] VICK Trnscrd Date/Time/By: 07/28/2019 (0541) : By: [email or web address] O rig Print D/T: S: 07/28/2019 (0544) PAGE 1 Signed Report - XR PELVIS 3 + V 2019-07-20 13:17:00 FAX: Tavo Aguirre MD [phone] [place]: St: REG FAX: Ari Knowles [phone] Name: LAKEISHA GIL [facility] : 1945 Age/S: 73/F [address] Unit #: [id number] Loc: [place] [address] Phys: Tavo Sewell MD Acct: [id number] Dis Date: Status: REG RCR PHONE #: [phone] Exam Date: 07/20/2019 1012 FAX #: Reason: INLET OUTLET EXAMS: CPT CODE: [id number] XR PELVIS 3 + V 39814 HISTORY: INLET OUTLET EXAM: AP, inlet, and [...] appear similar to the prior exam. Location: [facility] 20 at 1317 Reported and signed by: Arthur Hodgson MD CC: Tavo Sewell MD; Ari Heaton Technolog ist: Kiley Majano RT(R) Trnscrd Date/Time/By : 07/20/2019 (7087) : By: [email or web address] Orig Print D/T: S: 07/20/2019 (132 0) PAGE 1 Signed Report - XR WRIST 3 + V [id number] 11:49:00 FAX: Tavo Aguirre MD [phone] [place]: St: REG FAX: Ari Knowles [phone] Name: JEFFERYLAKEISHA MADHU [facility] : 1945 Age/S: 73/F [address] Unit #: [id number] [facility] [place] [address] Phys: Tavo Sewell MD Acct: [id number] Dis Date: Status: REG RCR PHONE #: [phone] Exam Date: 07/20/2019 1012 FAX #: Reason: FRACTURE EXAMS: CPT CODE: [id number] XR WRIST 3 + V LT [address] REASON FOR EXAM: FRACTURE EXAM ORDER DATE: 020 9:54 AM Ordering M.Eli: Tavo Sewell MD PROC EDURE: - XR [...] the carpal rows are intact. Location: [facility] at 1149 Reported and signed by: Arthur romero MD CC: Tavo Sewell MD; Ari Heaton Technologist: FLOYD Ballard) Trnscrd Da te/Time/By: 07/20/2019 (4149) : By: [email or web address] Orig Print D/T: S: 07/20 (6140) PAGE 1 Signed Report Blood leukocytes automated count (number/volume) 2019-07-06 09:18:00* Test Item Value Reference Range Interpretation Comments White Blood Count (test code = 6690-2) 7.44 4.8-10.8 [facility] count (number/volume)2019-07-06 09:18:00* Test Item Value Reference Range Interpretation Comments Red Blood Count (test code = 789-8) 4.09 3.6-5.1 [facility] erythrocyte mean corpuscular dqnwul8253-28-04 09:18:00* Test Item Value Reference Range Interpretation Comments Mean Corpuscular Volume (test code = 787-2) 94.4 81-99 [facility] eryth[facility] mean corpuscular hemoglobin (mass per erythrocyte)2019-07-06 09:18:00* Test Item Value Reference Range Interpretation Comments Mean Corpuscular Hemoglobin (test code = 785-6) 29.8 28-32 [facility] erythrocyte mean corpuscular hemoglobin concentration measurement (mass/volume)2019-07-06 09:18:00* Test Item Value Reference Range Interpretation Comments Mean Corpuscular Hemoglobin Concent (test code = 786-4) 31.6 31-35 [facility] HospitalRDW SbrIn-Dgi9469-25-14 09:18:00* Test Item Value Reference Range Interpretation Comments Red Cell Distribution Width (test code = 22346-5) 14.0 11.7 -14.4 [facility] blood platelet count (count/volume)2019-07-06 09:18:00* Test Item Value Reference Range Interpretation Comments Platelet Count (test code = 777-3) 249 140-360 [facility] blood segmented neutrophil count as percentage of total xfgtbqbcca3096-30-87 09:18:00* Test Item Value Reference Range Interpretation Comments Neutrophils (%) (Auto) (test code = 51888-3) 68.6 38.7-80.0 [facility] blood lymphocyte count as percentage ot total ljxpxaztvg9512-33-72 09:18:00* Test Item Value Reference Range Interpretation Comments Lymphocytes (%) (Auto) (test code = 736-9) 18.4 18.0-39.1 [facility] blood monocyte count as percentage of total gqzbfzmave6016-51-82 09:18:00* Test Item Value Reference Range Interpretation Comments Monocytes (%) (Auto) (test code = 5905-5) 9.4 4.4-11.3 [facility] blood eosinophil count as percentage of total oztutywzxh6882-62-57 09:18:00* Test Item Value Reference Range Interpretation Comments Eosinophils (%) (Auto) (test code = 713-8) 2.8 0.0-6.0 [facility] blood basophil count as percentage of total klcctgebuh1530-09-12 09:18:00* Test Item Value Reference Range Interpretation Comments Basophils (%) (Auto) (test code = 706-2) 0.4 0.0-1.0 [facility] HospitalFluoroscopic procedure less than one hour axxvasqi6827-45-77 09:18:00* Test Item Value Reference Range Interpretation Comments IM GRANULOCYTES % (test code = IM GRANULOCYTES %) 0.4 0.0- 1.0 [facility] blood neutrophil count 2019-07-06 09:18:00* Test Item Value Reference Range Interpretation Comments Neutrophils # (Auto) (test code = 751-8) 5.1 2.1-6.9 [facility] lymphocytes count (number/volume) 2019-07-06 09:18:00* Test Item Value Reference Range Interpretation Comments Lymphocytes # (Auto) (test code = 19634-5) 1.4 1.0-3.2 [facility] monocytes automated count (number/volume)2019-07-06 09:18:00* Test Item Value Reference Range Interpretation Comments Monocytes # (Auto) (test code = 742-7) 0.7 0.2-0.8 [facility] blood eosinophil count 2019-07-06 09:18:00* Test Item Value Reference Range Interpretation Comments Eosinophils # (Auto) (test code = 711-2) 0.2 0.0-0.4 [facility] blood basophil count (count/volume)2019-07-06 09:18:00* Test Item Value Reference Range Interpretation Comments Basophils # (Auto) (test code = 704-7) 0.0 0.0-0.1 [facility] HospitalFluoroscopic procedure less than one hour rvvgzyrk5563-88-77 09:18:00* Test Item Value Reference Range Interpretation Comments Absolute Immature Granulocyte (auto (sherly t code = Absolute Immature Granulocyte (auto) 0.03 0-0.1 [facility] HospitalCOMPREHENSIVE METABOLIC ZQGLB1798-07-05 07:17:00* Test Item Value Reference Range Interpretation [...] reference range due to change in reagent. [id number] 07:17:00* Test Item Value Reference Range Interpretation Comments LIPASE (test code = LIP) 136 U/L 73.0-393.0 N COMPREHENSIVE METABOLIC [id number] 07:12:00* Test Item Value Reference Range Interpretation [...] TOTAL (test code = ALKP) IUnit/L 45-117 LWPSQZ2374-13-20 07:12:00* Test Item Value Reference Range Interpretation Comments LIPASE (test code = LIP) U/L 73.0-393.0 CBC W/AUTO [id number] 07:09:00* Test Item Value Reference Range Interpretation [...] (test code = MDIFF) NO CBC W/AUTO [id number] 07:06:00* Test Item Value Reference Range Interpretation [...] (test code = BA#) K/mm3 0.0-0.2 URINALYSIS GPYKZBUY1442-33-05 05:16:00* Test Item Value Reference Range Interpretation [...] FEW #/LPF FEW Urine Source? Clean CatchURINALYSIS UIQEPRIE8687-40-05 05:11:00* Test Item Value Reference Range Interpretation [...] Clean Catch- XR ANKLE 3 + V [id number] 04:36:00 FAX: Ari Knowles [phone] [place]: St: [facility] FAX: Angelica Garcia [phone] Name: LAKEISHA GIL [facility] : 1945 Age/S: 73/F [address] Unit #: [id number] Loc: [place] [address] Phys: Angelica Patterson MD Acct: [id number] Dis Date: Status: REG ER PHONE #: [phone] Exam Date: 06/08/2019 0421 FAX #: [phone] Reason: fall EXAMS: CPT CODE: [id number] XR ANKLE 3 + [place] [address] DICTATION LOCATION: H48 HISTORY: Female, 73 yea [...] Caal Trnscrd Date/Time/By: 06/08/2019 (0436) : By: DanielCLW Orig Herlinda nt D/T: S: 06/08/2019 (0439) PAGE 1 Signed Report - XR TIBIA/FIBULA 2 V BI 2019-06-08 04:36:00 FAX: Ari Knowles [phone] [place]: St: [facility] FAX: Angelica Garcia [phone] Name: LAKEISHA GIL [facility] : 1945 Age/S: 73/F [address] [facility] Unit #: [id number] Loc: [place] [address] Phys: Angelica Patterson MD Acct: [id number] Dis Date: Status: REG ER PHONE #: [phone] Exam Date: 06/08/2019 042 FAX #: [phone] Reason: fall EXAMS: CPT CODE: [id number] XR TIBIA/FIBUL[place] [address] [place] [address] DICTATION LOCATION: H48 HISTORY: Female, 73 years [...] by : Purvi Rosas MD CC: Ari Heaton Jessica D M D Technologist: Sarah Caal Trnscrd Date/Time/By: 06/08/2019 (0436) : By: DanielCLW Orig Herlinda nt D/T: S: 06/08/2019 (0439) PAGE 1 Signed Report - XR PELVIS 1/2 [id number] 04:31:00 FAX: Ari Knowles [phone] [place]: B St: REG FAX: Angelica Garcia [phone] Name: LAKEISHA GIL [facility] : 1945 Age/S: 73/F [address] Unit #: [id number] Loc: [place] [address] Phys: Angelica Patterson MD Acct: [id number] Dis Date: Status: REG ER PHONE #: [phone] Exam Date: 06/08/2019 0421 FAX #: [phone] Reason: fall EXAMS: CPT CODE: [id number] XR PELVIS 1/2 VIEWS 95124 DICTATION LOCATION: H48 HISTORY: Female, 73 years [...] Angelica Patterson MD T echnologist: Sarah Caal Trnscrd Date /Time/By: 06/08/2019 (0431) : By: DanielCLW Orig Print D/T: S: 019 (0434) PAGE 1 Signed Report - XR CHEST 1 [id number] 04:26:00 FAX: Ari Knowles [phone] [place]: B St: REG FAX: Angelica Garcia [phone] Name: LAKEISHA GIL [facility] : 1945 Age/S: 73/F [address] Unit #: [id number] Loc: [place] [address] Phys: Angelica Patterson MD Acct: [id number] Dis Date: Status: REG ER PHONE #: [phone] Exam Date: 06/08/2019 042 FAX #: [phone] Reason: fall EXAMS: CPT CODE: [id number] XR CHEST 1 V 11750 AFTER HOURS SERVICE ON: 06/08/2019 4:25 AM [...] MD Technologist: Sarah Caal Trnscrd Date/Time/By: 06/08/2019 (0426) : By: [email or web address] Orig Print D/T: S: (0429) PAGE 1 Signed Rep ort - CT C-SPINE W/O [id number] 04:19:00 Name: LAKEISHA GIL [facility] : 1945 Age/S: 73 / F [address] Unit #: [id number] Loc: [place] [address] Phys: Carlos Patterson MD Acct: [id number] Di s Date: Status: REG ER PHONE #: [phone] Exam Date: 06/08/2019 0402 FAX #: [phone] Reason: fall EXAMS: CPT CODE: [id number] CT C-SPINE W/ O CONTRAST 74398 DICTATION LOCATION: H48 HISTORY: Female, 73 years [...] s ignificant change since prior study. at 0419 Reported and signed by: Purvi Rosas MD CC: Ari Heaton Jessica D MD Technologist:ALIYA ZARATE CTDI: DLP: Trnscb Date/Time: 06/08/2019 (0419) [email or web address] Orig Print D/T: S: 06/08/2019 (0429) PAGE 1 Signed Report - CT HEAD/BRAIN W/O [id number] 04:05:00 Name: LAKEISHA GIL [facility] : 1945 Age/S: 73 / [facility] [address] [facility] #: [id number] Loc: [place] [address] Phys: Carlos Patterson MD Acct: [id number] Di s Date: Status: REG ER PHONE #: Exam Date: 06/08/2019401 FAX #: Reason: fall EXAMS: CPT CODE: [id number] CT HEAD/BRAIN W/O CONT 68582 AFTER HOURS SERVICE ON: 1 08/09/2018 4:[address] Scan of the [...] signed by: Julio Bates M.D. CC: Lam Heaton; Angelica Patterson MD Technologist:ALIYA HARRIS CT CTDI: DLP: Trnscb Date/Time: 06/08/2019 (404) [email or web address] Orig Print D/T: S: 06/08/2019 (407) PAGE 1 Signed Report - CT C-SPINE W/O [id number] 03:34:00 Name: LAKEISHA GIL [facility] : 1945 Age/S: 73 / F [address] [facility] Unit #: [id number] Loc: [place] [address] Phys: Raad Smith MD Acct: [id number] Dis Date: Status: REG ER PHONE #: [phone] Exam Date: 06/06/2019 0309 FAX #: [phone] Reason: trauma EXAMS: CPT CODE: [id number] CT C-SPINE W/O CONTRAST 90958 DICTATION LOCATION: H48 HISTORY: Female, 73 years [...] RT(R),CT CTDI: DLP: Trnscb Date/Time: 06/06/2019 (033) [email or web address] Orig Print D/T: S: 06/06/2019 (0333) PAGE 1 Signed Report - CT HEAD/BRAIN W/O [id number] 03:26:00 Name: LAKEISHA GIL [facility] : 1945 Age/S: 73 / F [address] [facility] Unit #: [id number] Loc: [place] [address] Phys: Raad Smith MD Acct: [id number] Dis Date: Status: REG ER PHONE #: [phone] Exam Date: 06/06/2019308 FAX #: [phone] Reason: trauma EXAMS: CPT CODE: [id number] CT HEAD/BRAIN W/O CONT 41015 DICTATION LOCATION: H48 HISTORY: Female, 73 years [...] MD CC: Ari Heaton; Raad Smith MD T echnologist:HUSSAIN GARCIA RT(R),CT CTDI: DLP: Trnscb Date /Time: 06/06/2019 (0326) t.CLW Orig Print D/T: S: (0329) PAGE 1 Signed Report - XR PELVIS 3 + [id number] 11:34:00 FAX: Tavo Aguirre MD [phone] [place]: St: REG FAX: Ari Knowles [phone] Name: LAKEISHA GIL [facility] : 1945 Age/S: 73/F [address] Unit #: [id number] [facility] [place] [phone] Phys: Tavo Sewell MD Acct: [id number] Dis Date: Status: REG RCR PHONE #: [phone] Exam Date: 06/03/2019 1114 FAX #: Reason: fall EXAMS: CPT CODE: [id number] XR PELVIS 3 + V 18935 HISTORY: fall EXAM: AP, inlet, and outlet [...] protrusion but no fracture is evident. Location: [facility] at 1134 Reported and signed by: Arthur Hodgson MD CC: Tavo Bray MD; Ari Heaton Technologist: Raad river RT(R) Trnscrd Date/Time/By: 06/03/2019 (1613) : By: [email or web address] Orig Print D/T: S: 06/03/2019 (3125) PAGE 1 Signed Report BASIC METABOLIC [id number] 07:43:00* Test Item Value Reference Range Interpretation [...] CA) 8.9 mg/dL 8.5-10.1 N BASIC METABOLIC [id number] 07:32:00* Test Item Value Reference Range Interpretation [...] code = CA) mg/dL 8.5-10.1 CBC W/AUTO [id number] 07:13:00* Test Item Value Reference Range Interpretation [...] NRBC#) 0.00 K/mm3 0.0-0.1 N CBC W/AUTO [id number] 07:11:00* Test Item Value Reference Range Interpretation [...] # (test code = BA#) K/mm3 0.0-0.2 [id number] 12:42:00* Test Item Value Reference Range Interpretation Comments TROPONIN-I (test code = TROPI) <0.015 ng/mL 0-0.045 N COMMENTS TO OPERATIONS INTELLIGENCE: COLLECT 3 HOURS AFTER PREVIOUS [id number] 08:59:00* Test Item Value Reference Range Interpretation Comments TROPONIN-I (test code = TROPI) <0.015 ng/mL 0-0.045 N COMMENTS TO OPERATIONS INTELLIGENCE: COLLECT 3 HOURS AFTER PREVIOUS SAMPLEURINALYSIS [id number] 04:23:00* Test Item Value Reference Range Interpretation [...] #/LPF NONE Urine Source? Clean CatchBASIC METABOLIC [id number] 00:13:00* Test Item Value Reference Range Interpretation [...] CA) 8.5 mg/dL 8.5-10.1 N HEPATIC FUNCTION [id number] 00:13:00* Test Item Value Reference Range Interpretation [...] reference range due to change in reagent. [id number] 00:13:00* Test Item Value Reference Range Interpretation Comments LIPASE (test code = LIP) 194 U/L 73.0-393.0 N [id number] 00:13:00* Test Item Value Reference Range Interpretation Comments TROPONIN-I (test code = TROPI) <0.015 ng/mL 0-0.045 N BASIC METABOLIC [id number] 00:00:00* Test Item Value Reference Range Interpretation [...] CA) 8.5 mg/dL 8.5-10.1 N HEPATIC FUNCTION [id number] 00:00:00* Test Item Value Reference Range Interpretation [...] reference range due to change in reagent. [id number] 00:00:00* Test Item Value Reference Range Interpretation Comments LIPASE (test code = LIP) 194 U/L 73.0-393.0 N [id number] 00:00:00* Test Item Value Reference Range Interpretation Comments TROPONIN-I (test code = TROPI) <0.015 ng/mL 0-0.045 N - CT CHEST W/[id number] 00:00:00 Name: LAKEISHA GIL [facility] : 1945 Age/S: 73 / F [address] Unit #: [id number] Loc: [place] [address] Phys: Juan R Cuevas MD Acct: [id number] Dis Date: Status: REG ER PHONE #: [phone] Exam Date: 05/24/2019 2330 FAX #: [phone] Reason: severe cp, questionable syncope EXAMS: CPT CODE: [id number] CT CHEST W/CONTRAST 62826 EXAM: CTA thoracic aorta with IV contrast [...] Signed R eport (CONTINUED) Name: LAKEISHA GIL [facility] : 1945 Age/S: 73 / F [address] [facility] Unit #: [id number] Loc: [place] [address] Phys: Juan R uCevas MD Acct: [id number] Dis Date: Status: REG ER PHONE #: [phone] Exam Date: 05/24/2019 2330 FAX #: [phone] Reason: severe cp, questionable sy ncope EXAMS: C PT CODE: [id number] CT CHEST W/CONTRAST 86136 <Continued> within the right lower lobe which can be followed up in 1 month 3.Evaluation of the pulmonary arteries is limited secondary to aortic phase of contrast. 4. Additional findings as detailed above at 0000 Reported and signed by: Estrella Ching M.D. CC: Juan R Cuevas MD; Ari Heaton Technologist:ALEXANDRA ESPINOSA RTTanika MOREL CTDI: DLP: Trnscb Date/Time: 05/25/2019 (0000) [email or web address] Orig Print D/T: S: 05/25/2019 (0003) PAGE 2 Signed Report - XR L-SPINE 2/3 [id number] 23:57:00 FAX: Juan R Cuevas MD [place]: St: REG FAX: Y Ari Heaton [phone] Name: LAKEISHA GIL [facility] : 1945 Age/S: 73/F [address] Unit #: [id number] Loc: [place] [address] Phys: Juan R Cuevas MD Acct: [id number] Dis Date: Status: REG ER PHONE #: [phone] Exam Date: 05/24/2019 2352 FAX #: [phone] Reason: BACK PAIN EXAMS: CPT CODE: [id number] XR L-SPINE 2/3 VIEWS 24572 EXAM: - XR T-SPINE 3 VIEWS, - [...] 1. Li mited exam as above. at 0166 Reported and signed by: Eloy Encarnacion M.D. CC: Juan R Cuevas MD; Ari Heaton Technologist : Sarah Caal Trnpard Date/Time/By: 1 07/25/2018 (2638) : By: [email or web address] Orig Print D/T: S: 05/25/2019 (0000) PAGE 1 Signed Report - XR T-SPINE 3 [id number] 23:57:00 FAX: Juan R Cuevas MD [place]: B St: REG FAX: Y Ari Heaton [phone] Name: LAKEISHA GIL [facility] : 1945 Age/S: 73/F [address] Unit #: [id number] Loc: [place] [address] Phys: Juan R Cuevas MD Acct: [id number] Dis Date: Status: REG ER PHONE #: [phone] Exam Date: 05/24/2019 2352 FAX #: [phone] Reason: BACK PAIN EXAMS: CPT CODE: [id number] XR T-SPINE 3 VIEWS 04334 EXAM: - XR T-SPINE 3 VIEWS, - [...] 1. Li mited exam as above. at 2595 Reported and signed by: Eloy Encarnacion M.D. CC: Juan R Cuevas MD; Ari Heaton Technologist : Sarah Caal Trnpard Date/Time/By: 1 07/25/2018 (1062) : By: [email or web address] Orig Print D/T: S: 05/25/2019 (0000) PAGE 1 Signed Report - CT C-SPINE W/O [id number] 23:50:00 Name: LAKEISHA GIL [facility] : 1945 Age/S: 73 / F [address] [facility] Unit #: [id number] Loc: [place] [address] Phys: Haseeb Cuevas MD Acct: [id number] Di s Date: Status: REG ER PHONE #: [phone] Exam Date: 05/24/2019 2320 FAX #: Reason: Neck Pain EXAMS: CPT CODE: [id number] CT C-SPINE W/ O CONTRAST 69991 CT of the brain without c ontrast [...] Signed Rep ort (CONTINUED) Name: LAKEISHA GIL [facility] : 1945 Age/S: 73 / F [address] [facility] Unit #: [id number] Loc: [place] [address] Phys: Juan R Cuevas MD Acct: [id number] Dis Date: Status: REG ER PHONE #: [phone] Exam Date: 05/24/2019 2320 FAX #: [phone] Reason: Neck Pain EXAMS: CPT CODE: [id number] CT C-SPINE W/O CONTRAST 46136 <Continued> No evidence of acute osseous cervical fracture or traumatic subluxation Additional findings as above. at 2350 Reported and signed by: Estrella Ching M.D. CC: Juan R Cuevas MD; Ari Heaton Technologist:ALEXANDRA ESPINOSA RTTanika MOREL CTDI: DLP: Trnscb Date/Time: 05/24/2019 (2350) [email or web address] Orig Print D/T: S: 05/24/2019 (6709) PAGE 2 Signed Report - CT HEAD/BRAIN W/O [id number] 23:50:00 Name: LAKEISHA GIL [facility] : 1945 Age/S: 73 / F [address] Unit #: [id number] Loc: [place] [address] Phys: Haseeb Cuevas MD Acct: [id number] Di s Date: Status: REG ER PHONE #: Exam Date: 05/24/2019 2310 FAX #: [phone] Reason: HEADACHE EXAMS: CPT CODE: [id number] CT HEAD/BRAIN W/O CONT 70382 CT of the brain without c ontrast [...] Signed Rep ort (CONTINUED) Name: LAKEISHA GIL [facility] : 1945 Age/S: 73 / F [address] Unit #: [id number] Loc: [place] [address] Phys: Juan R Cuevas MD Acct: [id number] Dis Date: Status: REG ER PHONE #: [phone] Exam Date: 05/24/2019 2310 FAX #: [phone] Reason: HEADACHE EXAMS: CPT CODE: [id number] CT HEAD/BRAIN W/O CONT 18160 <Continued> No evidence of acute osseous cervical fracture or traumatic subluxation Additional findings as above. at 5350 Reported and signed by: Estrella Ching M.D. CC: Juan R Cuevas MD; Ari Heaton Technologist:ALEXANDRA ESPINOSA RT; ALIYA AT CTDI: DLP: Trnscb Date/Time: 05/24/2019 (2349) [email or web address] Orig Print D/T: S: 05/24/2019 (2811) PAGE 2 Signed Report BASIC METABOLIC [id number] 23:48:00* Test Item Value Reference Range Interpretation [...] code = CA) mg/dL 8.5-10.1 HEPATIC FUNCTION [id number] 23:48:00* Test Item Value Reference Range Interpretation [...] TOTAL (test code = ALKP) IUnit/L 45-117 [id number] 23:48:00* Test Item Value Reference Range Interpretation Comments LIPASE (test code = LIP) U/L 73.0-393.0 [id number] 23:48:00* Test Item Value Reference Range Interpretation Comments TROPONIN-I (test code = TROPI) ng/mL 0-0.045 PROTHROMBIN [id number] 23:32:00* Test Item Value Reference Range Interpretation [...] (2.5-3.5) IS PATIENT ON ANTICOAGULANTS? NTHROMBOPLASTIN TIME [id number] 23:32:00* Test Item Value Reference Range Interpretation Comments THROMBOPLASTIN TIME PARTIAL (test code = PTT) 31.4 seconds 25.0-36. 5 N IS PATIENT ON ANTICOAGULANTS? NCBC W/O [id number] 23:20:00* Test Item Value Reference Range Interpretation [...] code = MPV) fL 6.7-11.0 CBC W/O [id number] 23:20:00* Test Item Value Reference Range Interpretation [...] fL 6.7-11.0 N - CT L-SPINE W/O [id number] 05:23:00 Name: LAKEISHA GIL [facility] : 1945 Age/S: 73 / F [address] Unit #: [id number] Loc: [place] [address] Phys: Gonsalo Garcia MD Acct: [id number] Dis Date: Status: REG ER PHONE #: [phone] Exam Date: 05/17/2019 050 FAX #: [phone] Reason: Fall, pain EXAMS: CPT CODE: [id number] CT L-SPINE W/O CONTRAST 89454 Location: T 18 CT thoracic and lumbar [...] 1 Signed Report (CONTINUED) Name: LAKEISHA GIL [facility] : 1945 Age/S: 73 / F [address] Unit #: [id number] Loc: [place] [address] Phys: Gonsalo Garcia MD Acct: [id number] Dis Date: Status: REG ER PHONE #: [phone] Exam Date: 05/17/2019501 FAX #: [phone] Reason: Fall, pain EXAMS: CPT CODE: [id number] CT L-SPINE W/O CONTRAST 40974 < Continued> Bilateral sacral insufficiency type fractures [...] Technologist:ALIYA ZARATE CTDI: DLP: Trnscb Date/Time: 05/17/2019 (05) [email or web address] Orig Print D/T: S: 05/17/2019 (0560) PAGE 2 Signed Report - CT T-SPINE W/O [id number] 05:23:00 Name: LAKEISHA GIL [facility] : 1945 Age/S: 73 / F [address] Unit #: [id number] Loc: [place] [address] Phys: Gonsalo Garcia MD Acct: [id number] Dis Date: Status: REG ER PHONE #: [phone] Exam Date: 05/17/2019 050 FAX #: [phone] Reason: Fall, pain EXAMS: CPT CODE: [id number] CT T-SPINE W/O CONTRAST 69857 Location: T 18 CT thoracic and lumbar [...] 1 Signed Report (CONTINUED) Name: LAKEISHA GIL [facility] : 1945 Age/S: 73 / F [address] [facility] Unit #: [id number] Loc: [place] [address] Phys: Gonsalo Garcia MD Acct: [id number] Dis Date: Status: REG ER PHONE #: [phone] Exam Date: 05/17/2019 0502 FAX #: [phone] Reason: Fall, pain EXAMS: CPT CODE: [id number] CT T-SPINE W/O CONTRAST 98424 < Continued> Bilateral sacral insufficiency type fractures [...] ZARATE CTDI: DLP: Trnscb Date/Time: 05/17/2019 (522) [email or web address] Orig Print D/T: S: 05/17/2019 (6401) PAGE 2 Signed Report - CT PELVIS W/O [id number] 05:15:00 Name: LAKEISHA GIL [facility] : 1945 Age/S: 73 / F [address] [facility] Unit #: [id number] Loc: [place] [address] Phys: Ary Garcia MD Acct: [id number] Di s Date: Status: REG ER PHONE #: Exam Date: 05/17/2019 050 FAX #: [phone] Reason: R/O occult pelvic/hip fracture, pain EXAMS: CPT CODE: [id number] CT PELVIS W/O CONTRAST 42679 Location: T 18 CT of the pelvis, [...] Signed Report (CONTINUE D) Name: LAKEISHA GIL [facility] : 1945 Age/S: 73 / F [address] [facility] Unit #: [id number] Loc: [place] [address] Phys: Gonsalo Garcia MD Acct: [id number] Dis Date: Status: REG ER PHONE # : [phone] Exam Date: 05/17/2019501 FAX #: Reason: R/O occult pelvic/hip fracture, pain EXAMS: CPT CODE: [id number] CT PELVIS W/O CONTRAST 96971 <Continued> at 0515 Reported and signed by: Violeta Barron M.D. CC: Ari Heaton; Gonsalo Garcia MD Technologist:ALIYA HARRIS CT CTDI: DLP: Trnscb Date/Time: 05/17/2019 (514) [email or web address] Orig Print D/T: S: 05/17/2019 (05) PAGE 2 Signed Report - XR SHOULDER 2 + V [id number] 03:50:00 FAX: Gonsalo Garcia MD [place]: St: REG Name: LAKEISHA MCKEON [facility] : [birth year] Age/S: 73/F [address] [facility] Unit #: [id number] Loc: [place] [address] Phys: Gonsalo Garcia MD Acct: [id number] Dis Date: Status: REG ER PHONE #: [phone] Exam Date: 05/17/2019325 FAX #: [phone] Reason: SHOULDER PAIN EXAMS: CPT CODE: [id number] XR SHOULDER 2 + [place] [address] Location: T 18 Left shoulder x-ray exam, 3 views conducted on 05/17/19 CLINICAL HISTOR Y: Fall, shoulder pain. Left shoulder arthroplasty changes is seen . Do not see a definite acute fracture or subluxation. No loosening of the prosthesis. AP view the pelvis, 2 views and 2 views of the right hip, 05/17/19 Comparison exam: 02/20/19 pelvic x-ray exam and rig t hip x-ray exam Mild chronic appearing [...] CC: Gonsalo Garcia MD Technologist: Sarah Caal Trnpard Date/Time/By: 05/17/2019 (0350) : By: [email or web address] Orig Print D/T: S: 05/17/2019 (0353) PAGE 1 Signed Report - XR HIP W/PEL UNI 2+V [id number] 03:50:00 FAX: Gonsalo Garcia MD [place]: B St: REG Name: LAKEISHA MCKEON [facility] : [birth year] Age/S: 73/F [address] Unit #: [id number] Loc: [place] [address] Phys: Gonsalo Garcia MD Acct: [id number] Dis Date: Status: REG ER PHONE #: [phone] Exam Date: 05/17/2019325 FAX #: [phone] Reason: HIP PAIN EXAMS: CPT CODE: [id number] XR HIP W/PEL UNI 2+V R T 30433 Location: T 18 Left shoulder x-ray exam, [...] CC: Gonsalo Garcia MD Technologist: Sarah Caal Trnpard Date/Time/By: 05/17/2019 (0350) : By: [email or web address] Orig Print D/T: S: 05/17/2019 (0353) PAGE 1 Signed Report - XR KNEE 3 V [id number] 03:38:00 FAX: Gonsalo Garcia MD [place]: B St: REG Name: Alin DELGADOASALAKEISHA GOMES [facility] : [birth year] Age/S: 73/F [address] [facility] Unit #: [id number] Loc: [place] [address] Phys: Gonsalo Garcia MD Acct: [id number] Dis Date: Status: REG ER PHONE #: [phone] Exam Date: 05/17/2019325 FAX #: [phone] Reason: KNEE PAIN EXAMS: CPT CODE: [id number] XR KNEE 3 [place] [address] Location: [address] knee x-ray exam, 3 views of each knee conducted on 05/17/19 C LINICAL HISTORY: Trauma, fall, knee pain. Patient The patient is o steopenic. No definite fracture, subluxation or abnormal joint effusion at 0338 R eported and signed by: Violeta Barron M.D. CC: Gonsalo Garcia MD Technologist: Shelbi Caal Trnpard Date/Time/By: 05/17/20 19 (0338) : By: [email or web address] Orig Print D/T: S: 05/17/2019 (0343) PAGE 1 Signed Report - XR KNEE 3 V [id number] 03:38:00 FAX: Gonsalo Garcia MD [place]: [address]: REG Name: LAKEISHA MCKEON [facility] : [birth year] Age/S: 73/F [address] Unit #: [id number] Loc: [place] [address] Phys: Gonsalo Garcia MD Acct: [id number] Dis Date: Status: REG ER PHONE #: [phone] Exam Date: 05/17/2019 0326 FAX #: [phone] Reason: KNEE PAIN EXAMS: CPT CODE: [id number] XR KNEE 3 V RT [address] Location: [address] knee x-ray exam, 3 views of each knee conducted on 05/17/19 C LINICAL HISTORY: Trauma, fall, knee pain. Patient The patient is o steopenic. No definite fracture, subluxation or abnormal joint effusion at 0338 R eported and signed by: Violeta Barron M.D. CC: Gonsalo Garcia MD Technologist: Shelbi Caal Trnscrd Date/Time/By: 05/17/20 (0338) : By: [email or web address] Orig Print D/T: S: 05/17/2019 (0343) PAGE 1 Signed Report - XR CHEST 1 [id number] 03:36:00 FAX: Gonsalo Garcia MD [place]: B St: REG Name: LAKEISHA MCKEON [facility] : [birth year] Age/S: 73/F [address] Unit #: [id number] Loc: [place] [address] Phys: Gonsalo Garcia MD Acct: [id number] Dis Date: Status: REG ER PHONE #: [phone] Exam Date: 05/17/2019 0326 FAX #: [phone] Reason: CHEST PAIN EXAMS: CPT CODE: [id number] XR CHEST 1 V 98594 Location: T18 CHEST X-RAY: 05/17/19 CLINICAL HISTORY: [...] 05/17/2019 (0340) PAGE 1 Signed Report PROTHROMBIN [id number] 03:29:00* Test Item Value Reference Range Interpretation [...] (2.5-3.5) IS PATIENT ON ANTICOAGULANTS? NTHROMBOPLASTIN TIME [id number] 03:29:00* Test Item Value Reference Range Interpretation Comments THROMBOPLASTIN TIME PARTIAL (test code = PTT) 34.2 seconds 25.0-36. 5 N IS PATIENT ON ANTICOAGULANTS? NBASIC METABOLIC [id number] 03:21:00* Test Item Value Reference Range Interpretation [...] mg/dL 8.5-10.1 N - CT HEAD/BRAIN W/O [id number] 03:15:00 Name: LAKEISHA GIL [facility] : 1945 Age/S: 73 / F [address] [facility] Unit #: [id number] Loc: [place] [address] Phys: Gonsalo Garcia MD Acct: [id number] Dis Date: Status: REG ER PHONE #: [phone] Exam Date: 05/17/2019303 FAX #: [phone] Reason: HEADACHE EXAMS: CPT CODE: [id number] CT HEAD/BRAIN W/O CONT 66481 EXAM: - CT HEAD/BRAIN W/O CONT HISTORY: [...] RT(R)(CT) CTDI: DLP: Trnscb Date/Time: 2018 (314) [email or web address] Orig Print D/T: S: 05/17/2019 (317 ) PAGE 1 Signed Report - CT C-SPINE W/O [id number] 03:14:00 Name: LAKEISHA GIL [facility] : 1945 Age/S: 73 / F [address] [facility] Unit #: [id number] Loc: SAKINA Manriquez [address] Phys: Gonsalo Garcia MD Acct: [id number] Dis Date: Status: REG ER PHONE #: [phone] Exam Date: 05/17/2019303 FAX #: [phone] Reason: Neck Pain EXAMS: CPT CODE: [id number] CT C-SPINE W/O CONTRAST 71372 Location: T 18 CT cervical spine, 05/17/19 [...] 1 Signed Report (CONTINUED) Name: LAKEISHA GIL [facility] : 1945 Age/S: 73 / F [address] [facility] Unit #: [id number] Loc: [place] [address] Phys: Gonsalo Garcia MD Acct: [id number] Dis Date: Status: REG ER PHONE #: [phone] Exam Date: 05/17/2019303 FAX #: [phone] Reason: Neck Pain EXAMS: CPT CODE: [id number] CT C-SPINE W/O CONTRA ST 29677 <Continued> CC: Gonsalo Garcia MD Technologist:Robert Cain, RT(R)(CT) CTDI: DLP: Trnscb Date/Time: 05/17/2019 (313) [email or web address] Orig Print D/T: S: 05/17/2019 (2820) PAGE 2 Signed Report CBC W/O [id number] 03:12:00* Test Item Value Reference Range Interpretation [...] MPV) 10.0 fL 6.7-11.0 N CBC W/O [id number] 03:05:00* Test Item Value Reference Range Interpretation [...] MPV) fL 6.7-11.0 - CT ABD PELVIS [id number] 08:45:00 Name: LAKEISHA GIL [facility] : 1945 Age/S: 73 / F [address] Unit #: [id number] Loc: S[place] Manriquez [address] Phys: Grzegorz Dubon MD Acct: [id number] Dis Date: Status: REG ER PHONE #: [phone] Exam Date: 04/23/2019 0835 FAX #: [phone] Reason: L flank pain EXAMS: CPT CODE: [id number] CT ABD PELVIS W/CONT 03282 REASON FOR EXAM: L flank pain EXAM [...] S igned Report (CONTINUED) Name: LAKEISHA GIL [facility] : 1945 Age/S: 73 / F [address] Unit #: [id number] Loc: SAKINA Ordaz [address] Phys: Grzegorz Dubon MD Acct: [id number] Dis Date: Status: REG ER PHONE #: [phone] Exam Date: 0835 FAX #: [phone] Reason: L flank pain EXAMS: CPT CODE: [id number] CT ABD PELVIS W/CONT 36193 <Continued> Musculoskeletal structures and abdominal wall: There [...] cecum suggest constipation. Fat-containing umbilical hernia. Location: [facility] at 0845 Reported and signed by: Arthur Hodgson MD CC: Grzegorz Dubon MD Technologist:Raquel CastroRT(R),CT CTDI: DLP: Trnscb Date/Time: 04/23/2019 (2945) t.SDR.[email or web address] Orig Print D/T: S: 04/23/2019 (2389) PAGE 2 Signed Report - XR CHEST 1 [id number] 07:33:00 FAX: Grzegorz Dubon MD [phone] [place]: B St: REG Name: LAKEISHA MCKEON [facility] : [birth year] Age/S: 73/F [address] [facility] Unit #: [id number] Loc: [place] [address] Phys: Grzegorz Dubon MD Acct: [id number] Dis Date: Status: REG ER PHONE #: [phone] Exam Date: 04/23/2019651 FAX #: [phone] Reason: CHEST PAIN EXAMS: CPT CODE: [id number] XR CHEST 1 V 61934 HISTORY: CHEST PAIN TECHNIQUE: AP chest x-ray COMPARISON: None FINDINGS: No airspace consolidation or pleural effusion. Elevated right hemidiaphragm. Cardiomegaly. Mediastinal silhouette is unremarkable. Ex tensive thoracolumbar fusion. Thoracic spinal cord stimulator. IMPRESSION: No radiographic evidence of acute cardiopul monary process. LOCATION: [facility] at 0733 Reported and signed by: Amanda Sheppard D.O. CC: Grzegorz Ram MD Technologist: IGOR HUSAIN JR Trnscrd Date/Time/By: 04/23/2019 (0733 ) : By: [email or web address] Orig Print D/T: S: 04/23/2019 (0790) PAGE 1 Signed Report - XR T-SPINE 3 [id number] 07:31:00 FAX: Grzegorz Dubon MD [phone] [place]: St: REG Name: LAKEISHA MCKEON [facility] : [birth year] Age/S: 73/F [address] [facility] Unit #: [id number] Loc: [place] [address] Phys: Grzegorz Dubon MD Acct: [id number] Dis Date: Status: REG ER PHONE #: [phone] Exam Date: 04/23/2019 07 FAX #: [phone] Reason: BACK PAIN EXAMS: CPT CODE: [id number] XR T-SPINE 3 VIEWS 92416 HISTORY: BACK PAIN E XAM: AP and [...] D.O. CC: Grzegorz Dubon MD Technologist: IGOR Anguiano te/Time/By: 04/23/2019 (6839) : By: [email or web address] Orig Print D/T: S: 04/23 (8063) PAGE 1 Signed Report - XR L-SPINE 2/3 [id number] 07:29:00 FAX: Grzegorz Dubon MD [phone] [place]: St: REG Name: Alin SANDYLAKEISHA STEEN [facility] : [birth year] Age/S: 73/F [address] [facility] Unit #: [id number] Loc: [place] [address] Phys: Grzegorz Dubon MD Acct: [id number] Dis Date: Status: REG ER PHONE #: [phone] Exam Date: 04/23/2019709 FAX #: [phone] Reason: BACK PAIN EXAMS: CPT CODE: [id number] XR L-SPINE 2/3 VIEWS 70327 HISTORY: BACK PAIN T ECHNIQUE: AP and lateral views of the lumbar spine. Comparison 02/20/18. FINDINGS: Extensive thoracolumbar instrumentation and fusion. Lower thoracic stimulator. Vertebral body alignment is satisfactory. No ac [place] lumbar fracture is observed. Generalized osteopenia. IMPRESS ION: No acute lumbar fracture is observed. No significant elsa nge compared to 02/20/18. LOCATION: [facility] at 0729 Reported and signed by: Amanda Soler CC: Grzegorz Dubon MD Technologist: IGOR Stern ate/Time/By: 04/23/2019 (0729) : By: [email or web address] Orig Print D/T: S: 06/2018 (0779) PAGE 1 Signed Repor t PROTHROMBIN [id number] 07:23:00* Test Item Value Reference Range Interpretation [...] (2.5-3.5) IS PATIENT ON ANTICOAGULANTS? NTHROMBOPLASTIN TIME [id number] 07:23:00* Test Item Value Reference Range Interpretation Comments THROMBOPLASTIN TIME PARTIAL (test code = PTT) 33.0 seconds 25.0-36. 5 N IS PATIENT ON ANTICOAGULANTS? NBASIC METABOLIC CBRSE5340-75-66 07:11:00* Test Item Value Reference Range Interpretation [...] CA) 8.4 mg/dL 8.5-10.1 L HEPATIC FUNCTION [id number] 07:11:00* Test Item Value Reference Range Interpretation [...] reference range due to change in reagent. VCCQID9474-06-87 07:11:00* Test Item Value Reference Range Interpretation Comments LIPASE (test code = LIP) 96 U/L 73.0-393.0 N WXWZYIKD-H6339-76-01 07:11:00* Test Item Value Reference Range Interpretation Comments TROPONIN-I (test code = TROPI) <0.015 ng/mL 0-0.045 N BASIC METABOLIC ULJVU3798-04-83 07:04:00* Test Item Value Reference Range Interpretation [...] code = CA) mg/dL 8.5-10.1 HEPATIC FUNCTION XTCTA8253-04-22 07:04:00* Test Item Value Reference Range Interpretation [...] TOTAL (test code = ALKP) IUnit/L 45-117 WAPEVS0059-29-87 07:04:00* Test Item Value Reference Range Interpretation Comments LIPASE (test code = LIP) U/L 73.0-393.0 CBC W/O UUPB0845-20-38 06:54:00* Test Item Value Reference Range Interpretation [...] fL 6.7-11.0 N - CT C-SPINE W/O UKSDJGZJ5771-88-13 06:11:00 Name: LAKEISHA GIL [facility] : 1945 Age/S: 73 / F [address] [facility]: [id number] Loc: [place] [address] Phys: Grzegorz Dubon MD Acct: [id number] Dis Date: Status: REG ER PHONE #: [phone] Exam Date: 04/23/2019 06 FAX #: [phone] Reason: Neck Pain EXAMS: CPT CODE: [id number] CT C-SPINE W/O CONTRAST 71232 AFTER HOURS SERVICE ON: 04/23/2019 6:09 AM [...] ESPINOSA RT CTDI: DLP: Trnscb Date/Time: 04/23/2019 (610) Rui ORELLANA Orig Print D/T: S: 04/23/2019 (613) PAGE 1 Signed Report - CT HEAD/BRAIN W/O [id number] 06:08:00 Name: LAKEISHA GIL [facility] : 1945 Age/S: 73 / F [address] [facility] Unit #: [id number] Loc: [place] [address] Phys: Grzegorz Dubon MD Acct: [id number] Dis Date: Status: REG ER PHONE #: [phone] Exam Date: 04/23/2019 06 FAX #: [phone] Reason: HEADACHE EXAMS: CPT CODE: [id number] CT HEAD/BRAIN W/O CONT 64556 AFTER HOURS SERVICE ON: 04/23/2019 6:07 AM [...] VICK CTDI: DLP: Trnscb Date/Time: 04/23/2019 (0608) Ned50 Orig Print D/T: S: 04/23/2019 (610) PAGE 1 Signed Report BONE DXA DUAL ENERGY 2018-11-02 15:58:00 [place] [address] Patient Name: LAKEISHA GIL MR #: [id number] : 1945 Age/Sex: 73/F Req #: [id number] Adm Physician: Ordered by: PATY MICHEL MD Report #: [id number] Location: CT Room/Bed: Procedure: 15 DX/BONE DXA [...] 4:03 PM Dictated By: MARITO LIANG MD 02 Transcribed By: GEOFFREY on 11/02/181602 COPY TO: PATY MICHEL MD CT KNEE LEFT [id number] 10:21:00 [place] [address] Patient Name: LAKEISHA GIL MR #: [id number] : [birth year] Age/Sex: 73/F Req #: [id number] Adm Physician: Ordered by: PATY MICHEL MD Report #: [id number] Location: CT Room/Bed: Procedure: CT/CT KNEE LEFT [...] Signed By: NENA MCCULLOUGH MD on 11/02/18 103 Transcribed By: GEOFFREY on 11/02 1031 COPY TO: PATY MICHEL MD CT LUMBAR SPINE [id number] 12:49:00 [place] [address] Patient Name: LAKEISHA GIL MR #: [id number] : 1945 Age/Sex: 72/F Req #: [id number] Adm Physician: Ordered by: GEORGI DUNAWAY MD Report #: [id number] Location: DX Room/Bed: Procedure: [id number] CT/CT LUMBAR SPINE W Exam Date: 06/02/18 [...] 1:17 PM Dictated By: GREG SWEET MD 16 Transcribed By: GEOFFREY on 06/02/181316 COPY TO: GEORGI CAMPBELL MD MYELOGRAM LUMBOSACRAL INCL [id number] 12:03:00 [place] [address] Patient Name: LAKEISHA GIL MR #: [id number] : 1945 Age/Sex: 72/F Req #: [id number] Adm Physician: Ordered by: GEORGI DUNAWAY MD Report #: [id number] Location: DX Room/Bed: Procedure: [id number] DX/MYELOGRAM LUMBOSACRAL INCL INJ Exam Date: Exam [...] obtained and the patient was transferred to [facility] CT scanner. FINDINGS: No significant ventral epidural filling de fects on crosstable lateral radiograph. IMPRESSION: Successful lumba r spine myelogram under fluoroscopic guidance, with injection of 15 cc of Isov ue-200 into the thecal sac for purposes of subsequent lumbar spine CT, odilia francis reported. Signed by: Dr. Nena Mccullough M.D. on 06/02/2018 12:07 PM Dictated By: NENA MCCULLOUGH MD Transcribed By: GEOFFREY on 12/11/18 1207 COPY TO: GEORGI CAMPBELL MD BONE SCAN, 3 [id number] 22:29:00 [place] [address] Patient Name: LAKEISHA GIL MR #: [id number] : 1945 Age/Sex: 72/F Req #: [id number] Adm Physician: Ordered by: PHIL AHMILTON DPM Report #: [id number] Location: [facility]/Bed: Procedure: [id number] NM/BONE SCAN, 3 PHASE Ex am Date: [...] Interpretation Comments Blood Culture (test code = 38435816) NO GROWTH AFTER 72 HOURS [facility] HospitalVancomycin Level Memmec2032-30-63 09:17:00* Test Item Value Reference Range Interpretation Comments Vancomycin Level Trough (test code = 4092-3) 14.3 5.0-10.0 HH Results called to AVIS WILKERSON RN at 0916 on 10/30/17 by Ryan De La Rosa. RB OK. [facility] HospitalBacteria identification in wound by qmvnqvx1711-32-99 07:59:00* Test Item Value Reference Range Interpretation Comments Wound Culture (test code = 6462-6) Organism: YEAST SPECIES [facility] Yujia8511-94-16 07:04:00* Test Item Value Reference Range Interpretation Comments Sodium Level (test code = 2951-2) 142 136-145 [facility] HospitalPotassium Yiejk1746-29-52 07:04:00* Test Item Value Reference Range Interpretation Comments Potassium Level (test code = 2823-3) 3.7 3.5-5.1 [facility] HospitalChloride Qlheq9526-44-06 07:04:00* Test Item Value Reference Range Interpretation Comments Chloride Level (test code = 2075-0) 103 98-107 [facility] HospitalCarbon Dioxide Fhpdo1491-66-96 07:04:00* Test Item Value Reference Range Interpretation Comments Carbon Dioxide Level (test code = 2028-9) 31 22-29 H [facility] HospitalAnion Lpi1577-78-29 07:04:00* Test Item Value Reference Range Interpretation Comments Anion Gap (test code = 98920-2) 11.7 8-16 [facility] HospitalBlood Urea Gmuugrzs3909-37-22 07:04:00* Test Item Value Reference Range Interpretation Comments Blood Urea Nitrogen (test code = 3094-0) 9 7-26 [facility] HospitalCreatinine2018-05-10 07:04:00* Test Item Value Reference Range Interpretation Comments Creatinine (test code = 2160-0) 0.72 0.57-1.11 [facility] HospitalBUN/Creatinine Dhjsh3827-17-60 07:04:00* Test Item Value Reference Range Interpretation Comments BUN/Creatinine Ratio (test code = 3097-3) 13 6-25 [facility] HospitalEstimat Glomerular Filtration Rate 2017-10-30 07:04:00* Test Item Value Reference Range Interpretation Comments Estimat Glomerular Filtration Rate (test code = 09491-6) 60- >60 Ranges were taken from the National Kidney Disease Education Program and the [facility] Kid[facility] Foundation literature.Reference ranges:60 or greater: Gktavq98-62 ( for 3 consecutive months): Chronic kidney disease 15 or less: Kidney failureMemorial Hermann Sugar Land HospitalGlucose Ugjhx8154-63-73 07:04:00* Test Item Value Reference Range Interpretation Comments Glucose Level (test code = HBJ2222) 102 74-118 [facility] HospitalCalcium Jqtrs8266-57-06 07:04:00* Test Item Value Reference Range Interpretation Comments Calcium Level (test code = 03320-5) 9.3 8.4-10.2 [facility] HospitalMagnesium Fijhg9547-32-00 07:04:00* Test Item Value Reference Range Interpretation Comments Magnesium Level (test code = 05875-0) 1.7 1.3-2.1 [facility] HospitalWhite Blood Kjhzg0030-16-37 06:35:00* Test Item Value Reference Range Interpretation Comments White Blood Count (test code = 6690-2) 5.60 4.8-10.8 [facility] HospitalRed Blood Vuicb8401-55-73 06:35:00* Test Item Value Reference Range Interpretation Comments Red Blood Count (test code = 789-8) 3.84 3.6-5.1 [facility] HospitalHemoglobin2018-05-10 06:35:00* Test Item Value Reference Range Interpretation Comments Hemoglobin (test code = 60498-4) 11.0 12.0-16.0 L [facility] HospitalHematocrit2018-05-10 06:35:00* Test Item Value Reference Range Interpretation Comments Hematocrit (test code = 4544-3) 34.9 34.2-44.1 [facility] HospitalMean Corpuscular Jqzfnu5309-09-78 06:35:00* Test Item Value Reference Range Interpretation Comments Mean Corpuscular Volume (test code = 787-2) 90.9 81-99 [facility] HospitalMean Corpuscular Okofvfxtdp6245-07-98 06:35:00* Test Item Value Reference Range Interpretation Comments Mean Corpuscular Hemoglobin (test code = 785-6) 28.6 28-32 [facility] HospitalMean Corpuscular Hemoglobin Concent 2017-10-30 06:35:00* Test Item Value Reference Range Interpretation Comments Mean Corpuscular Hemoglobin Concent (test code = 786-4) 31.5 31-35 [facility] HospitalRed Cell Distribution Zwidz0774-23-83 06:35:00* Test Item Value Reference Range Interpretation Comments Red Cell Distribution Width (test code = 64606-4) 16.8 11.7 -14.4 H [facility] HospitalPlatelet Sfnqz9124-64-94 06:35:00* Test Item Value Reference Range Interpretation Comments Platelet Count (test code = 777-3) 376 140-360 H [facility] HospitalNeutrophils (%) (Auto)2017-10-30 06:35:00 * Test Item Value Reference Range Interpretation Comments Neutrophils (%) (Auto) (test code = 68064-6) 66.0 38.7-80.0 [facility] HospitalLymphocytes (%) (Auto)2017-10-30 06:35:00 * Test Item Value Reference Range Interpretation Comments Lymphocytes (%) (Auto) (test code = 736-9) 16.4 18.0-39.1 L [facility] HospitalMonocytes (%) (Auto)2017-10-30 06:35:00* Test Item Value Reference Range Interpretation Comments Monocytes (%) (Auto) (test code = 5905-5) 8.2 4.4-11.3 [facility] HospitalEosinophils (%) (Auto)2017-10-30 06:35:00 * Test Item Value Reference Range Interpretation Comments Eosinophils (%) (Auto) (test code = 713-8) 8.6 0.0-6.0 H [facility] HospitalBasophils (%) (Auto)2017-10-30 06:35:00* Test Item Value Reference Range Interpretation Comments Basophils (%) (Auto) (test code = 706-2) 0.4 0.0-1.0 [facility] HospitalIM GRANULOCYTES %2017-10-30 06:35:00* Test Item Value Reference Range Interpretation Comments IM GRANULOCYTES % (test code = IM GRANULOCYTES %) 0.4 0.0- 1.0 [facility] HospitalNeutrophils # (Auto)2017-10-30 06:35:00* Test Item Value Reference Range Interpretation Comments Neutrophils # (Auto) (test code = 751-8) 3.7 2.1-6.9 [facility] HospitalLymphocytes # (Auto)2017-10-30 06:35:00* Test Item Value Reference Range Interpretation Comments Lymphocytes # (Auto) (test code = 60804-6) 0.9 1.0-3.2 L [facility] HospitalMonocytes # (Auto)2017-10-30 06:35:00* Test Item Value Reference Range Interpretation Comments Monocytes # (Auto) (test code = 742-7) 0.5 0.2-0.8 [facility] HospitalEosinophils # (Auto)2017-10-30 06:35:00* Test Item Value Reference Range Interpretation Comments Eosinophils # (Auto) (test code = 711-2) 0.5 0.0-0.4 H [facility] HospitalBasophils # (Auto)2017-10-30 06:35:00* Test Item Value Reference Range Interpretation Comments Basophils # (Auto) (test code = 704-7) 0.0 0.0-0.1 [facility] HospitalAbsolute Immature Granulocyte (auto 2017-10-30 06:35:00* Test Item Value Reference Range Interpretation Comments Absolute Immature Granulocyte (auto (sherly t code = Absolute Immature Granulocyte (auto) 0.02 0-0.1 [facility] HospitalClostridium Difficile Toxin A & B 2017-10-29 14:35:00* Test Item Value Reference Range Interpretation Comments Clostridium Difficile Toxin A & B (test code = 188138038) NEGATIVE NEGATIVE Testing on stool aspirate specimens is outside maintenance machinist claims since specime n type not validated on this assay.[facility] Bedside Rlvpzjv0609-79-85 21:23:00* Test Item Value Reference Range Interpretation Comments Bedside Glucose (test code = 87843-9) 93 70-120 Meter ID: [id number] Hermann Sugar Land HospitalErythrocyte Sedimentation Zqmn9443-39-47 11:54:00* Test Item Value Reference Range Interpretation Comments Erythrocyte Sedimentation Rate (test code = 4537-7) 83 0- 20 H [facility] HospitalUrine SMC3402-72-44 19:01:00* Test Item Value Reference Range Interpretation Comments Urine WBC (test code = 5821-4) 0-5 0-5 [facility] HospitalUrine LRU3987-30-42 19:01:00* Test Item Value Reference Range Interpretation Comments Urine RBC (test code = 82043-1) NONE 0-5 [facility] HospitalUrine Lbhmeczy5433-62-10 19:01:00* Test Item Value Reference Range Interpretation Comments Urine Bacteria (test code = 71479-2) MODERATE NONE H [facility] HospitalUrine Epithelial Cdoty7354-65-13 19:01:00 * Test Item Value Reference Range Interpretation Comments Urine Epithelial Cells (test code = 45431-9) MODERATE NONE [facility] Mzfdr5347-14-97 18:50:00* Test Item Value Reference Range Interpretation Comments Urine Color (test code = 5778-6) YELLOW YELLOW [facility] HospitalUrine Efsvouw2392-33-90 18:50:00* Test Item Value Reference Range Interpretation Comments Urine Clarity (test code = 18238-1) SL CLOUDY CLEAR [facility] Specific Olfamtf5234-38-42 18:50:00 * Test Item Value Reference Range Interpretation Comments Urine Specific [place] (test code = 5811-5) 1.020 1.010-1.02 5 [facility] HospitalUrine yX6409-82-56 18:50:00* Test Item Value Reference Range Interpretation Comments Urine pH (test code = 05723-9) 7 5-7 [facility] Leukocyte Jyzbmanz5260-89-17 18:50:00* Test Item Value Reference Range Interpretation Comments Urine Leukocyte Esterase (test code = 5799-2) NEGATIVE NEGATIVE [facility] Qjmoyus0996-17-55 18:50:00* Test Item Value Reference Range Interpretation Comments Urine Nitrite (test code = 33702-9) NEGATIVE NEGATIVE [facility] HospitalUrine Qwqkpay8113-03-11 18:50:00* Test Item Value Reference Range Interpretation Comments Urine Protein (test code = 5804-0) 1+ NEGATIVE H [facility] Glucose (UA)2017-10-27 18:50:00* Test Item Value Reference Range Interpretation Comments Urine Glucose (UA) (test code = 2349-9) NEGATIVE NEGATIVE [facility] HospitalUrine Avjdvxp0169-01-37 18:50:00* Test Item Value Reference Range Interpretation Comments Urine Ketones (test code = 80373-6) TRACE NEGATIVE H [facility] HospitalUrine Mrkrwnxrpgmb1944-40-12 18:50:00* Test Item Value Reference Range Interpretation Comments Urine Urobilinogen (test code = 13549-7) 0.2 0.2-1 [facility] HospitalUrine Etardtpwx0469-16-78 18:50:00* Test Item Value Reference Range Interpretation Comments Urine Bilirubin (test code = 1978-6) NEGATIVE NEGATIVE [facility] HospitalUrine Tojxs9818-79-74 18:50:00* Test Item Value Reference Range Interpretation Comments Urine Blood (test code = 46100-9) NEGATIVE NEGATIVE [facility] HospitalTotal Qaizyweic2748-99-33 16:52:00* Test Item Value Reference Range Interpretation Comments Total Bilirubin (test code = 1975-2) 0.4 0.2-1.2 [facility] HospitalAspartate Amino Transf (AST/SGOT) 2017-10-27 16:52:00* Test Item Value Reference Range Interpretation Comments Aspartate Amino Transf (AST/SGOT) (test code = Aspartate Amino Transf (AST/SGOT)) 15 5-34 [facility] HospitalAlanine Aminotransferase (ALT/SGPT) 2017-10-27 16:52:00* Test Item Value Reference Range Interpretation Comments Alanine Aminotransferase (ALT/SGPT) (test code = 1742-6) 12 0-55 [facility] HospitalTotal Qtssstj6544-00-22 16:52:00* Test Item Value Reference Range Interpretation Comments Total Protein (test code = 2885-2) 8.3 6.5-8.1 H [facility] HospitalAlbumin2018-05-07 16:52:00* Test Item Value Reference Range Interpretation Comments Albumin (test code = 1751-7) 2.9 3.5-5.0 L [facility] HospitalGlobulin2018-05-07 16:52:00* Test Item Value Reference Range Interpretation Comments Globulin (test code = 42216-0) 5.4 2.3-3.5 H [facility] HospitalAlbumin/Globulin Ckeje5172-01-01 16:52:00 * Test Item Value Reference Range Interpretation Comments Albumin/Globulin Ratio (test code = 1759-0) 0.5 0.8-2.0 L [facility] HospitalAlkaline Utynecfpvan7155-80-58 16:52:00* Test Item Value Reference Range Interpretation Comments Alkaline Phosphatase (test code = 6768-6) 108 40-150 [facility] HospitalLactic Acid Rxcsd6485-85-58 16:46:00* Test Item Value Reference Range Interpretation Comments Lactic Acid Level (test code = Lactic Acid Level) 15.5 4.5- 19.8 [facility]ertool Occult Zbfoq3735-49-56 10:34:00* Test Item Value Reference Range Interpretation Comments Stool Occult Blood (test code = 2335-8) NEGATIVE NEGATIVE [facility] HospitalB-Type Natriuretic Tttsttq4282-34-36 07:19:00* Test Item Value Reference Range Interpretation Comments B-Type Natriuretic Peptide (test code = 14466-7) 24.5 0-100 [facility] HospitalC-Reactive Ptbfbmp3155-55-28 23:04:00* Test Item Value Reference Range Interpretation Comments C-Reactive Protein (test code = 1988-5) 179.7 0.0-4.9 H Performed at: [facility] [address] [id number] Director: Horacio Bentley MD, Phone: [phone] Hermann Sugar Land HospitalVitamin B12 Rprmt8953-34-89 08:26:00* Test Item Value Reference Range Interpretation Comments Vitamin B12 Level (test code = 02125-9) 327 213-816 [facility] HospitalFolate2018-01-28 08:26:00* Test Item Value Reference Range Interpretation Comments Folate (test code = 2284-8) 18.8 7.0-15.4 H [facility] HospitalFree Fymdspgrx0579-23-28 08:26:00* Test Item Value Reference Range Interpretation Comments Free Thyroxine (test code = 3024-7) 0.96 0.9-1.8 [facility] HospitalThyroid Stimulating Hormone (TSH) 2017-07-20 08:26:00* Test Item Value Reference Range Interpretation Comments Thyroid Stimulating Hormone (TSH) (test code = 33784-1) 0.755 0.350-4.940 [facility] HospitalIron Ctjsw7338-36-61 07:44:00* Test Item Value Reference Range Interpretation Comments Iron Level (test code = 2498-4) 29 50-170 L [facility] HospitalTotal Iron Binding Vljopwzg8446-38-13 07:44:00* Test Item Value Reference Range Interpretation Comments Total Iron Binding Capacity (test code = 2500-7) 311 261-4 78 [facility] HospitalPercent Iron Azmutqtjmt9033-37-89 07:44:00* Test Item Value Reference Range Interpretation Comments Percent Iron Saturation (test code = 2502-3) 9 15-50 L [facility] HospitalTransferrin2018-01-28 07:44:00* Test Item Value Reference Range Interpretation Comments Transferrin (test code = 3034-6) 222 180-382 [facility] HospitalHemoglobin A1c Pnzrool8772-47-80 16:01:00 * Test Item Value Reference Range Interpretation Comments Hemoglobin A1c Percent (test code = Hemoglobin A1c Percent) 5.4 4.0-7.0 [facility] HospitalTriglycerides Ehuor1558-81-66 15:37:00* Test Item Value Reference Range Interpretation Comments Triglycerides Level (test code = 2571-8) 98 0-149 [facility] HospitalCholesterol Isead6128-54-62 15:37:00* Test Item Value Reference Range Interpretation Comments Cholesterol Level (test code = 2093-3) 165 0-199 Less than 200 mg/dL Low Pmrw115 - 239 mg/dL Borderline Zoel687 m g/dl and greater High Risk [facility] HospitalLDL Dpsxurzckip1792-73-53 15:37:00* Test Item Value Reference Range Interpretation Comments LDL Cholesterol (test code = 2089-1) 87 60-130 [facility] HospitalHDL Ekzflnpxwqq5201-68-54 15:37:00* Test Item Value Reference Range Interpretation Comments HDL Cholesterol (test code = 2085-9) 58 40-60 [facility] HospitalCholesterol/HDL Ocpin6276-50-62 15:37:00 * Test Item Value Reference Range Interpretation Comments Cholesterol/HDL Ratio (test code = 9830-1) 2.8 3.0-3.6 L [facility] HospitalProthrombin Oqre6068-37-28 15:37:00* Test Item Value Reference Range Interpretation Comments Prothrombin Time (test code = 5902-2) 14.6 11.9-14.5 H [facility] HospitalProthromb Time International Ratio 2017-07-18 15:37:00* Test Item Value Reference Range Interpretation Comments Prothromb Time International Ratio (test code = 6301-6) 1.08 Oral Anticoagulant Therapy INR Values:1. Low Intensity Therapy 1.5 - 2.02 . Moderate Intensity Therapy 2.0 - 3.03. High Intensity Therapy(1) 2.5 - 3. 54. High Intensity Therapy(2) 3.0 - 4.05. Panic Value INR > 5.0 [facility] HospitalActivated Partial Thromboplast Time 2017-07-18 15:37:00* Test Item Value Reference Range Interpretation Comments Activated Partial Thromboplast Time (test code = 67070-4) 34.3 23.8-35.5 [facility] HospitalFL, CAR COUPLER IN OR/30 MINUTE INCREMENTS 2017-06-10 14:19:00Reason for exam:->TRIAL OF SPINAL CORD STIMULATOR VIA LAMINECTOMYPROCEDURE PERFORMED IN O.R. - PLEASE REFER TO THE INTRAOPERATIVE REPORT. C METABOLIC [id number] 10:13:00* Test Item Value Reference Range Interpretation [...] DIALYSIS PATIENTS. CBC W/PLT COUNT & AUTO [id number] 09:49:00* Test Item Value Reference Range Interpretation [...] = 2801) 0 % 0-1 BASIC METABOLIC [id number] 13:45:00* Test Item Value Reference Range Interpretation [...] APPLICABLE FOR DIALYSIS PATIENTS. RAD, CHEST, 2 [id number] 13:40:00Reason for exam:->pre op testingFINAL REPORT Chest, [...] RESSION: No acute cardiopulmonary abnormality. Signed: Savage Youngort Verified Date/Time: 05/21/2017 13:40:14 Reading [facility] [address] [facility] Electronically signed by: SAVAGE YOUNG on 7 01:40 PM URINALYSIS W/ REFLEX URINE [id number] 13:33:00* Test Item Value Reference Range Interpretation [...] 2 /HPF SOURCE(BEAKER) (test code = 2795) [id number] 13:26:00* Test Item Value Reference Range Interpretation Comments PARTIAL THROMBOPLASTIN TIME (BEAKER) (test code = 760) 31.9 seconds 22.5-36.0 PROTHROMBIN TIME/[id number] 13:25:00* Test Item Value Reference Range Interpretation [...] mechanical heart valves.CBC W/PLT COUNT & AUTO [id number] 13:08:00* Test Item Value Reference Range Interpretation [...] (test code = 2801) 0 % 0-1 [id number] 13:39:93336Qfmfdtpw OrtuaylUVXVOFXMOGVP1896-89-45 13:39:004.4[facility] MrwbwbyHAGLJCIDCQHV4643-06-49 13:39:88781Aomppgub [place] IHEDKHWYTVFM0714-83-02 13:39:0037[facility] VfmtzxxTWREXHQZXBAG2446-02-57 13:39:00 7.4[facility] HermannCHEST XRAY LINE PLACEMENT [place] [address] [place] [address] Patient Name: LAKEISHA GIL MR #: [id number] : 1945 Age/Sex: 72/F Req #: [id number] Adm Physician: MANDI REBOLLAR MD Ordered by: BEVERLY CASTANON MD Report #: [id number] Location: [facility] Room/Bed: [facility] Procedure: [id number] DX/CHEST XRAY LINE PLACEMENT Exam Date: [facility] Time: 1550 REPORT STATUS: Signed PROCEDURE: A [...] on 10/29/2017 at 16:14 Dictated By: JACKSON GOMEZ MD 13 Transcribed By: KELLY on 10/29/171613 COPY TO: BEVERLY CASTANON MD FOOT LEFT COMPLETE [place] [address] Patient Name: LAKEISHA GIL MR #: [id number] : 1945 Age/Sex: 72/F Req #: [id number] Adm Physician: MANDI REBOLLAR MD Ordered by: MERCEDES THOMPSON DPM Report #: [id number] Location: [facility] Room[facility]Bed: [facility] Procedure: 0509-001 0 DX/FOOT [...] foot for further characterization. Dictated by: Aliya Chavarria M.D. on 10/29/2017 at 8:48 Electronically approved by: Aliya Chavarria M.D. on 10/29/2017 at 8:48 Dictated By: ALIYA CHAVARRIA MD Transcribed By: KELLY on 10/29/1748 COPY TO: MERCEDES THOMSPON DPM CHEST SINGLE (NOT PORTABLE) [place] [address] Patient Name: LAKEISHA GIL MR #: [id number] : 1945 Age/Sex: 72/F Req #: [id number] Adm Physician: Ordered by: JANET CHAVES NP Report #: [id number] Location: ER Room/Bed: Procedure: [id number] DX/CHEST SINGLE (NOT PORTAB LE) Exam Date: [...] JANET CHAVES NP CT FOOT LEFT W [place] [address] [place] [address] Patient Name: LAKEISHA GIL MR #: [id number] : 1945 Age/Sex: 71/F Req #: [id number] Adm Physician: MANDI REBOLLAR MD Ordered by: CLIFFORD OBJORQUEZ DPLinn Report #: [id number] Location: MED/SURG2 Room/Bed: [facility] Procedure: 0128-00 CT/CT FOOT LEFT W Exam Date: 07/20/17 [...] DPLinn HIP RIGHT 2-3 VW (+/- PELVIS) [place] [address] Patient Name: LAKEISHA GIL MR #: [id number] : 1945 Age/Sex: 71/F Req #: [id number] Adm Physician: MANDI REBOLLAR MD Ordered by: MANDI REBOLLAR MD Report #: [id number] Location: MED/SURG2 Room/Bed: [facility] Procedure: [id number] DX/HIP RIGHT 2-3 VW (+/- PELVIS) Exam [...] PM Dictated By: ALANA TEJADA MD 10 Transcribed By: GEOFFREY on 07/19/171810 COPY TO: MANDI REBOLLAR MD KNEE RIGHT 1-2 VIEWS [place] [address] Patient Name: LAKEISHA GIL MR #: [id number] : 1945 Age/Sex: 71/F Req #: [id number] Adm Physician: MANDI REBOLLAR MD Ordered by: MANDI REBOLLAR MD Report #: [id number] Location: MED/SURG2 Room/Bed: [facility] Procedure: [id number] DX/KNEE RIGHT 1-2 VIEWS Exam Date: 07/19/17 [...] TO: MANDI REBOLLAR MD CHEST SINGLE (PORTABLE) [place] [address] Patient Name: LAKEISHA GIL MR #: [id number] : 1945 Age/Sex: 71/F Req #: [id number] Adm Physician: MANDI REBOLLAR MD Ordered by: MANDI REBOLLAR MD Report #: [id number] Loc ation: MED/SURG2 Room/Bed: 206- Procedure: [id number] DX/CHEST SINGLE (PORTABLE) Exam Date: 07/19/17 Exam [...] MARCOS REBOLLAR MD CHEST XRAY LINE PLACEMENT [place] [address] Patient Name: LAKEISHA GIL MR #: [id number] : 1945 Age/Sex: 71/F Req #: [id number] Adm Physician: MANDI REBOLLAR MD Ordered by: MANDI REBOLLAR MD Report #: [id number] Location: MED/SURG2 Room/Bed: [facility] Procedure: [id number] DX/CHEST XRAY LINE PLACEMENT Exam Date: Exam [...] MANDI REBOLLAR MD CHEST XRAY LINE PLACEMENT [place] [address] Patient Name: LAKEISHA GIL MR #: [id number] : 1945 Age/Sex: 71/F Req #: [id number] [facility] Physician: MANDI REBOLLAR MD Ordered by: MANDI REBOLLAR MD Report #: [id number] Loc ation: MED/SURG2 Room/Bed: [facility] Procedure: [id number] DX/CHEST XRAY LINE PLACEMENT Exam Date: Exam [...] COPY TO: MANDI REBOLLAR MD FOOT LEFT [place] [address] Patient Name: LAKEISHA GIL MR #: [id number] : 1945 Age/Sex: 71/F Req #: [id number] Adm Physician: MANDI REBOLLAR MD Ordered by: LENNOX GONZALEZ Report #: [id number] Location: [facility] Room/Bed: [place] [address] Procedure: [id number] DX/FOOT LEFT COMPLETE Exam Date: 07/18/17 Juanito m Time: 1515 REPORT STATUS: Signed PROCEDURE: [...]
--- NOTE | 2020-02-14 09:38 | Diagnostic Imaging Report ---
Exam: Radiographs of the right knee 3 views portable History: Right knee pain Comparison: 07/19/2017 FINDINGS: Bones: No acute displaced fracture. Osseous alignment is within normal limits. Joints: Moderate tricompartmental degenerative changes. No osseous erosion Soft tissues: Mild soft tissue swelling. Chondrocalcinosis. IMPRESSION: Moderate tricompartmental degenerative changes. No osseous erosion Chondrocalcinosis. Correlate for CPPD Signed by: Dr. Jared Fulton M.D. on 02/14/2020 9:35 AM
--- NOTE | 2020-02-14 09:47 | NUR ---
DOPPLER TECH AT BEDSIDE
--- NOTE | 2020-02-14 10:05 | NUR ---
VENOUS DOPPLER NEGATIVE
[2020-02-14] MEDS ORDERED: VOLTAREN100 GM ID (10:28)
--- NOTE | 2020-02-14 10:29 | NUR ---
GLORIA WRAP TO RIGHT KNEE
--- NOTE | 2020-02-14 10:55 | NUR ---
pt able to stand and bear wt. sarah wrap in place per md order. pt to wheel chair and to lobby for her cab.
== END 2020-02-14 10:57 | disposition home or self-care (01) ==
LOC: ER 09:15
DX: M25.561 Pain in right knee (principal); M13.861 Other specified arthritis, right knee; I48.91 Unspecified atrial fibrillation; K21.9 Gastro-esophageal reflux disease without esophagitis; F32.9 Major depressive disorder, single episode, unspecified
CPT/HCPCS: 73562; 93971; 99284; J1885

== ENCOUNTER 2020-03-06 08:14 | Inpatient (IN) | payer MEDICARE, OTHER ==
[2020-03-02 11:36] LABS: BASOPHILS # (AUTO) 0.1 (0.0-0.1); BASOPHILS % 0.7 % (0.0-1.0); EOSINOPHILS # (AUTO) 0.2 (0.0-0.4); EOSINOPHILS % 2.8 % (0.0-6.0); HEMATOCRIT 38.3 % (34.2-44.1); HEMOGLOBIN 10.8 g/dL (12.0-16.0); LYMPHOCYTES # (AUTO) 1.8 (1.0-3.2); LYMPHOCYTES % 23.4 % (18.0-39.1); MEAN CORPUSCULAR HEMOGLOBIN 28.8 pg (28-32); MEAN CORPUSCULAR HGB CONC 28.2 g/dL (31-35); MEAN CORPUSCULAR VOLUME 102.1 fL (81-99); MONOCYTES # (AUTO) 0.8 (0.2-0.8); MONOCYTES % 10.4 % (4.4-11.3); NEUTROPHILS # (AUTO) 4.8 (2.1-6.9); NEUTROPHILS % 62.4 % (38.7-80.0); PLATELET COUNT 226 x10e3/uL (140-360); RED BLOOD COUNT 3.75 x10e6/uL (3.6-5.1); RED CELL DISTRIBUTION WIDTH 15.9 % (11.7-14.4)
[~2020-03-06] VITALS: Ht 162.6 cm; Wt 98.9 kg
[~2020-03-06 08:14] MED LIST changes: +VOLTAREN100 GM ID
[2020-03-06] MEDS ORDERED: CEFAZOLIN SOD 1 GM/NS 50ML 100 ML IV ONE (08:53)
[2020-03-06] MEDS: HYDROCODONE/APAP 7.5MG-325MG 1 EA TAB PO PRN ×2 (10:10→22:10)
[2020-03-06] MEDS ORDERED: VANCOMYCIN HCL 500 MG ONE (10:13)
[2020-03-06] MEDS ORDERED: TRANEXAMIC ACID 1,000 MG/10 ML ML ONE (10:13)
[2020-03-06] MEDS ORDERED: DOCUSATE SODIUM 100 MG CAP PO PRN (12:45)
[2020-03-06] MEDS ORDERED: ACETAMINOPHEN 650 MG SUPP PR PRN (12:45)
[2020-03-06] MEDS: SODIUM CHLORIDE 0.9% 1000ML 1,000 ML IV SCH ×2 (12:45→22:45)
[2020-03-06] MEDS ORDERED: ONDANSETRON HCL INJ 2MG/ML 2ML 2 MG/ML VIAL IV PRN (12:45)
[2020-03-06] MEDS ORDERED: HYDROCODONE/APAP 5MG-325MG TAB PO PRN (12:45)
[2020-03-06] MEDS ORDERED: DIPHENHYDRAMINE HCL INJ 50 MG/ML VIAL IV PRN (12:45)
[2020-03-06] MEDS ORDERED: HYDROMORPHONE 1MG/1ML INJ ONE (13:02)
--- NOTE | 2020-03-06 13:03 | Diagnostic Imaging Report ---
Exam: FEMUR ONE VIEW RIGHT - single crosstable lateral view History: Fracture right femur Comparison: Pelvis radiographs 01/18/2020 Findings: Status post placement of lateral fixation plate and cerclage wires at the proximal right femur. Proximal right femur fracture deformity is not visualized on current radiograph and may be obscured secondary to overlying hardware. Status post right total hip arthroplasty with unchanged alignment of femoral and acetabular prostheses. No joint malalignment. Postsurgical changes along the lateral soft tissues overlying the proximal femur. Impression: 1. Status post placement of fixation plate and cerclage wires at the proximal right femur. Associated overlying postsurgical soft tissue changes. 2. Status post right total hip arthroplasty with unchanged alignment of femoral and acetabular prostheses. Signed by: Dr. Levar Meng M.D. on 03/06/2020 1:00 PM
[2020-03-06] MEDS ORDERED: SEVOFLURANE INHAL SOLN 250 ML PEN BTL ONE (13:09)
[2020-03-06] MEDS ORDERED: PROPOFOL IV EMULSION 10 MG/ML 20 ML VIAL ONE (13:09)
[2020-03-06] MEDS ORDERED: LIDOCAINE HCL 2% LOCAL INJ 5 ML SDV VIAL INJ ONE (13:09)
[2020-03-06] MEDS ORDERED: DEXAMETHASONE SOD PHOS INJ 4 MG/ML VIAL ONE (13:09)
[2020-03-06] MEDS ORDERED: ONDANSETRON HCL INJ 2MG/ML 2ML 2 MG/ML VIAL ONE (13:09)
[2020-03-06] MEDS ORDERED: HYDROMORPHONE 2MG/ML 2 MG/ML ML ONE (13:15)
[2020-03-06] MEDS ORDERED: FENTANYL CITRATE/PF 100MCG/2 ML INJ ONE ×3 (13:25→14:41)
--- NOTE | 2020-03-06 13:39 | Diagnostic Imaging Report ---
Pelvis, one view INDICATION: ^POST OP ^[id number] ^1317 ^IN PACU Comparison: 03/06/2020. Discussion: Redemonstration of postoperative changes of the right hip with lateral fixation plate and cerclage wires overlying the proximal right femur. Stable right hip arthroplasty with a single right acetabular fixation screw in anatomic alignment. Pubic symphysis is not widened. Partially visualized spinal fusion changes and spinal cord sigmoid are noted in the left lower quadrant. Right hip is intact. IMPRESSION: Stable post surgical changes from right proximal femoral lateral plate fixation with cerclage wires. Stable post surgical changes from right hip arthroplasty with anatomic alignment of the prostheses. Signed by: Drake Castro MD on 03/06/2020 1:36 PM
[2020-03-06] MEDS ORDERED: ACETAMINOPHEN 1000 MG/100 ML 100 ML IV ONE (14:12)
--- OUTSIDE RECORDS SUMMARY | 2020-03-06 16:57 | XMS REPORT | Clinical Summary ---
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 Name Role Phone Sharpless PCP Allergies [...] Signs Not on file Plan of Treatment Health Maintenance Due Date Last Done Comments BREAST CANCER SCREENING 1945 COLON CANCER SCREENING 1945 COLONOSCOPY PNEUMOCOCCAL 65+ 2012 LOW/MEDIUM RISK (1 of 2 - PCV13) MEDICARE ANNUAL WELLNESS 07/25/2013 (YEAR 2 or FIRST YEAR if no IPPE) INFLUENZA VACCINE (#1) 2020 Implants Device Identifier Shelf Expiration Date Model / Serial / L ot Implanted Type Area Manufactur er 10/19/2018 [id number] / / [id number] Matrix Floseal Hemo W/O Ndl 10 Cement/Mono N/A: Spine HEDRICK:BIO [id number] - [id number] ler/Adhesi Thoracic SCI Implanted: Qty: 1 on 05/27/2017 by Gerald Sanchez MD 04/26/2020 [id number] / / [id number] Specify Surescan Mri 2x8 Neuro N/A: Spine MEDTR ONIC Implanted: Qty: 1 on 05/27/2017 by Gerald Villarreal MD 05/20/2018 [id number] / [id number] / Intellis Adaptivestim Neuro N/A: Back MEDTRONI C Implanted: Qty: 1 on 06/03/2017 by Gerald Villarreal MD 02/12/2020 [id number] / [id number] / [id number] Kt Ext Neuro 1x8 40cm [id number] - Pain N/A: Spine MEDTRONIC: [id number] Mgmt/Stimu NEUROMODUL Implanted: Qty: 1 on 05/27/2017 by Gerald De La Garza MD 10/22/2020 [id number] / [id number] / [id number] Kt Ext Neuro 1x8 40cm [id number] - Pain N/A: Spine MEDTRONIC: [id number] Mgmt/Stimu NEUROMODUL Implanted: Qty: 1 on 05/27/2017 by Gerald De La Garza MD Results Not on fileafter 03/06/2019 Insurance Payer Benefit Subscriber ID Type Phone Address Plan / Group MEDICARE MEDICARE A xxxxxxxxxx Medicare B MCR SUPPLEMENT/INDIVIDUAL AETNA xxxxxxxxxx SENIOR SUPPLEMENT [place] Advance Directives For more information, please contact: [facility] between [facility] [address] [place] [address] Date Inactivated Comments Code Status Date Activated 05/28/2017 5:28 PM Full Code 05/27/2017 9:11 AM This code status was determined by: Patient
--- NOTE | 2020-03-06 17:00 | NUR ---
PT TO THE FLOOR FROM PACU. PT'S VITALS WNL. PT DENIES NEEDS AT THIS TIME.
--- OUTSIDE RECORDS SUMMARY | 2020-03-06 17:00 | XMS REPORT | Continuity of Care Document ---
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 Name Role Phone [employer] Unavailable Un available Problems Problem Status Onset Date Classification Date Reported Comments Source DX: M54.12=RADICULOPATHY, CERVICAL REGIO Active 04/09/2017 [facility] A/Care Joint Replacement Active 10/06/2013 [facility] OSTEOARTHROS NOS-SHLDER Active 10/05/2013 Home [facility] JOINT REPLACED SHOULDER Active 10/04/2013 [facility] HTN Active 0 10/04/2013 [facility] ESOPHAGEAL REFLUX Active 10/04/2013 [facility] Depression Active 10/04/2013 Home [facility] PERSON LIVING ALONE Active 10/04/2013 Home Health JOINT PAIN-SHLDER Active 10/04/2013 [facility] Gastroesophageal reflux disease (disorder) Active Problem 05/19/2017 [facility] OPI D [place] Anxiety (finding) Active Problem 05/19/2017 [facility] [place] Backache (finding) Active Problem 05/19/2017 [facility] [place] Chronic pain (finding) Active Problem 05/19/2017 [facility] [place] Depression - motion (qualifier value) Active Problem [facility] [place] Eye glasses, device (physical object) Active Problem [facility] [place] Heel injury (disorder) Active Problem 05/19/2017 [facility] [place] 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 [facility] [place] Neuropathy (disorder) Active Problem 05/19/2017 [facility] [place] Numbness (finding) Active Problem 05/19/2017 leg [facility] [place] Osteoarthritis (disorder) Acti ve Problem [facility] [place] Restless legs (disorder) Active Problem 05/19/2017 [facility] [place] Seasonal allergy (disorder) Ac tive Problem [facility] [place] Finding of walking aid use (finding) Active Problem [facility] ADRIANA [place] e LT SHOULDER Active [facility] [place] OTH ABN AND INCONCLUSIVE FINDINGS ON DX Active [facility] RADICULOPATHY, CERVICAL REGION Active [facility] Medications Medication Details Route Status Patient Instructions Ordering Provider Order Date Source pantoprazole 40 mg oral enteric coated tablet 40 mg = 1 tab, PO, Daily, # 90 tab, 1 Refill(s) Active 05/08/2017 [facility] gabapentin 800 MG Oral Tablet 800 mg = 1 tab, PO, TID, # 90 tab, 3 Refill(s) Active 05/08/2017 [facility] amitriptyline 100 mg oral tablet 100 mg = 1 tab, PO, Bedtime, # 90 tab, 0 Refill(s) Active 05/08/2017 [facility] Furosemide 40 MG Oral Tablet 4 0 mg = 1 tab, PO, Daily, # 90 tab, 1 Refill(s) Active 05/08/2017 [facility] Mirapex 2 mg, PO, TID, 0 Refil l(s) Active 05/08/2017 [facility] cephalexin 500 mg oral tablet 500 mg = 1 tab, PO, TID, # 28 tab, 0 Refill(s) Active 05/08/2017 [facility] metoprolol 25 mg oral tablet, extended release 25 mg = 1 tab, PO, Bedtime, # 90 tab, 3 Refill(s) Active 05/08/2017 [facility] Lisinopril, 5 MG, Tablet Oral [place] 10/29/2013 [facility] Azithromycin, 1 GM, Packet Oral [place] 10/27/2013 [facility] Acetaminophen, 500 MG, Tablet Oral [place] 10/27/2013 [facility] Pramipexole Dihydrochloride, 0.75 MG, Tablet Oral [place] 10/19/2013 [facility] Furosemide, 20 MG, Tablet Oral [place] 10/19/2013 [facility] Furosemide, 20 MG, Tablet Oral [place] 10/12/2013 [facility] ROPINIRole HCl, 0.25 MG, Tablet Oral [place] 10/06/2013 [facility] Allergies, Adverse Reactions, Alerts Substance Category Reaction Severity Reaction type Status Date Reported Comments Source morphine Assertion Itching Drug allergy Active 09/29/2013 [facility] [place] Morphine Derivatives Datatype( AL1.2)-DA Active 10/06/2013 [facility] clindamycin Assertion Drug allergy Active [facility] [place] methadone Assertion Drug allergy Active [facility] [place] Dilaudid Assertion Drug allergy Active [facility] [place] Immunizations No Data Provided for This Section Results Order Name Results Value Reference Range Date Interpretation Comments Source ELECTROLYTES Sodium Lvl 140 135 - 145 05/09/2017 [facility] ELECTROLYTES Potassium Lvl 4.4 3.5 - 5.1 05/09/2017 [facility] ELECTROLYTES Chloride Lvl 100 95 - 109 05/09/2017 [facility] ELECTROLYTES CO2 37 24 - 32 05/09/2017 [facility] ELECTROLYTES AGAP 7.4 10.0 - 20.0 05/09/2017 [facility] Pathology Reports No Data Provided for This Section Diagnostic Reports Report Value Date Source Ext Artery Single Level Bilat US EXAM: ULTRASOUND BILATERAL LOWER EXTREMITIES SINGLE LEVEL ANKLE BRACHIAL INDEX DATE: 05/16/2017 8:39 AM MANAGEMENT MANAGER INDICATION: - I73.9 Peripheral vascular disease, unspecified. [...] lower extremity arterial duplex Doppler ultrasound 05/16/2017 [facility] Spine cervical wo contrast MRI Patient Name: LAKEISHA GIL : 1945; Age: 71 years y/o Female MR: [id number] Study: Spine cervical wo contrast MRI 05/09/2017 8:54 AM MANAGEMENT MANAGER Ordering Physician: Zelda Shea MD Clinical Indication: [...] above in the findings. SL: SROSENBLUM-PC 05/09/2017 [facility] Spine lumbar 2 or 3 views DX [place] lumbar 2 or 3 views DX COMPARISON: [...] Interval removal of bone fusion stimulator. SL: [id number] 05/09/2017 [facility] Consultation Notes No Data Provided for This Section Discharge Summaries No Data Provided for This Section History and Physicals No Data Provided for This Section Vital Signs Vital Sign Value Date Comments Source Heart Rate 56 05/09/2017 [facility] Systolic (mm Hg) 156 05/09/2017 [facility] Diastolic (mm Hg) 95 05/09/2017 [facility] Heart Rate 55 05/09/2017 [facility] Systolic (mm Hg) 158 05/09/2017 [facility] Diastolic (mm Hg) 89 05/09/2017 [facility] Heart Rate 51 05/09/2017 [facility] Systolic (mm Hg) 112 05/09/2017 [facility] Diastolic (mm Hg) 54 05/09/2017 [facility] Temperature Oral (F) 97.6 F 05/09/2017 [facility] Weight 120.455 05/08/2017 [facility] BMI Calculated 45.58 05/08/2017 [facility] Height 162.56 cm 05/08/2017 [facility] Encounters Location Location Details Encounter Type Encounter Number Reason For Visit Attending Provider ADM Date DC Date Status Source [place] [address] Outpatient [id number] 10/06/2013 11/12/2013 Discharged [facility] [place] Outpatient [id number] Zelda Shea 05/09/2017 05/09/2017 [facility] [place] Out[facility] Diag Services [id number] Zelda Shea 05/16/2017 05/17/2017 [facility] Procedures Procedure Code Date Perfomer Comments Source Primary reverse polarity total prostheti c replacement of shoulder joint using cement [id number] 10/04/2013 [facility] [place] Carpal tunnel release<sup>1</sup> [id number] 06/23/2008 twice 1997, 2008 [facility] [place] Cholecystectomy 32481560 06/23/2003 [facility] [place] Excision of mass of neck 81636 4000 06/23/1996 [facility] [place] Breast biopsy and related procedures [id number] 06/23/1988 [facility] [place] Hysterectomy [id number] 06/23/1985 [facility] [place] Cervical spinal fusion 47852984 06/23/1972 [facility] [place] Tonsillectomy 203911379 06/23/1951 [facility] [place] Arthroplasty of shoulder 83345 8007 [facility] [place] Back fusion<sup>2</sup> 418603 004 5 surgery 2004, 2012 [facility] [place] Fasciotomy [id number] [facility] [place] [id number] [place] Assessment and Plan No Data Provided for [...] No; Reg Smoking Cessation Counseling No [facility]29[facility] [place] Social History TypeResponse Substance Abuse Previous Treatment: None. Sexual Sexually active: No. Exercise Exercise duration: 0. Employment/School Operates hazardous equipment: No. Alcohol Previous treatment: None. Alcohol use interferes with work or home: No. Smoking Status Never smoker; Previous treatment: None; Exposure to Tobacco Smoke None; Cigarette Smoking Last 365 Days No; Reg Smoking Cessation Counseling No 09/29/2013 [facility] Family History No Data Provided for This Section Advance Directives No Data Provided for This Section Functional Status No Data Provided for This Section
--- OUTSIDE RECORDS SUMMARY | 2020-03-06 17:01 | XMS REPORT | Continuity of Care Document ---
Author Author [facility] Organization [facility] Address [address] [place] [address] Phone Unavailable Care Team Providers Care Preforms Laminator Name Role Phone NO, PCP PCP Unavailable NENA KNOX Attphys Unavailable Alin DAO Attphys Unavailable Wilbur HEATON Attphys Unavailable PATY MICHEL Attphys Unavailable Tootie DUNAWAY Attphys Unavailable PHIL HAMILTON Attphys Unavailable MANDI REBOLLAR Attphys Unavailable LU GUTHRIE Attphys Unavailable Zelda Shea Attphys RUMA BRADEN Admphys Unavailable NENA KNOX Admphys Unavailable MANDI REBOLLAR Admphys Unavailable LU GUTHRIE Admphys Unavailable Payers Payer Name Policy Type Policy Number Effective Date Expiration Date S jose Medicare A & B [id number] 2012 00:00:00 [facility] [employer] Medicare Supplement Plan [id number] 2012 00:00 :00 [facility] Cdc Review Covid19 [id number] [facility] Problems Condition Name Condition Details Condition Category Status Onset Date Resolution Date Last Treatment Date Treating Clinician Comments Source Back pain Back pain Disease Active 2017-06-03 00:00:00 [facility] Chronic pain disorder Chronic pain disorder Disease Active 201 01-01-05 00:00:00 [facility] Pre-op testing Pre-op testing Disease Active 2017-05-27 00:00:00 [facility] DX: M54.12=RADICULOPATHY, CERVICAL REGIO DX: M54.12=RADICULOPATHY, CERVICAL REGIO Active 04/09/2017 [facility] Active 2017-04-09 00:00:00 2017-05-09 07:25:00 Praveen Wade Cellulitis of left lower leg Cellulitis of left lower leg Problem Active 2014-07-29 00:00:00 [facility] A/Care Joint Replacement A/Ca re Joint Replacement [...] shoulder pain Left shoulder pain Problem Active [facility] Arthritis Problem Active [facility] Acute knee pain Problem Active [facility] 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 [facility] ADRIANA [place] Problem Resolved 2017-05-19 01:59:01 Praveen Wade Gastroesophageal reflux disease (disorder) Gastroesophageal reflux disease (disorder) Active Problem 05/19/2017 [facility] OPIJarred [place] Problem Active 2017-05-19 01:59:01 Praveen Wade Anxiety (finding) Anxi ety (finding) Active Problem 05/19/2017 [facility] 2017-05-19 01: 59:01 Praveen Wade Chronic pain (finding) 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) Active Problem 05/19/2017 [facility] OPID [place] Problem Active 2017-05-19 01:59:01 Praveen Wade Depression - motion (qualifier value) Depression - motion (qualifier value) Active Problem 05/19/2017 [facility] OPID [place] Problem Active 2017-05-19 01:59:01 Praveen Wade Eye glasses, device (physical object) Eye glasses, device (physical object) Active Problem 05/19/2017 [facility] OPID [place] Problem Active 2017-05-19 01:59:01 Praveen Wade Heel injury (disorder) Heel injury (disorder) Active Problem 05/19/2017 [facility] OPID [place] Problem Active 2017-05-19 01:59:01 Praveen Wade Neuropathy (disorder) Neur opathy (disorder) Active Problem 05/19/2017 [facility] OPID [place] Problem Active 2017-05-19 01:59:01 Praveen Wade Numbness (finding) Numb ness (finding) Active Problem 05/19/2017 leg [facility] OPID [place] Problem Active 2017-05-19 01:59:01 Praveen Wade Osteoarthritis (disorder) Oste oarthritis (disorder) Active Problem 05/19/2017 [facility] OPIJarred [place] Problem Active 2017-05-19 01:59:01 Praveen Wade Restless legs (disorder) Rest less legs (disorder) Active Problem 05/19/2017 [facility] ADRIANA [place] Problem Active 2017-05-19 01:59:01 Praveen Wade Seasonal allergy (disorder) Se asonal allergy (disorder) Active Problem 05/19/2017 [facility] OPIJarred [place] Problem Active 2017-05-19 01:59:01 Praveen Wade Finding of walking aid use (finding) Finding of walking aid use (finding) Active Problem 05/19/2017 [facility] ADRIANA [place] Problem Active 2017-05-19 01:59:01 Memor ial [facility]uro LT SHOULDER LT S HOULDER Active [facility] [place] Diagnosis Active 2014-02-19 13:28:00 Praveen Wade OTH ABN AND INCONCLUSIVE FINDINGS ON DX OTH ABN AND INCONCLUSIVE FINDINGS ON DX Active [facility] Diagnosis Active 2017-04-14 12:56:00 Praveen Wade RADICULOPATHY, CERVICAL REGION RADICULOPATHY, CERVICAL REGION Active [facility] Diagnosis Active 2017-05-09 07:25 :00 Praveen Wade Allergies, Adverse Reactions, Alerts Allergy Name Allergy Type Status Severity Reaction(s) Onset Date Inacti ve Date Treating Clinician Comments Source morphine DA Active SV 2019-10-12 00:00:00 [facility] clindamycin DA Active SV 2019-10-12 00:00:00 [facility] hydromorphone DA Active SV 2019-10-12 00:00:00 [facility] methadone DA Active SV 2019-10-12 00:00:00 [facility] morphine DA Active SV 2019-07-28 00:00:00 [facility] clindamycin DA Active SV 2019-07-28 00:00:00 [facility] hydromorphone DA Active SV 2019-07-28 00:00:00 [facility] methadone DA Active SV 2019-07-28 00:00:00 [facility] Morphine Allergy to substance Active 2019-07-06 00:00:00 [facility] morphine DA Active SV 2019-05-17 00:00:00 [facility] clindamycin DA Active SV 2019-05-17 00:00:00 [facility] hydromorphone DA Active SV 2019-05-17 00:00:00 [facility] methadone DA Active SV 2019-05-17 00:00:00 [facility] morphine DA Active SV 2019-04-23 00:00:00 [facility] clindamycin DA Active SV 2019-04-23 00:00:00 [facility] hydromorphone DA Active SV 2019-04-23 00:00:00 [facility] methadone DA Active SV 2019-04-23 00:00:00 [facility] morphine DA Active SV 2018-02-20 00:00:00 [facility] clindamycin DA Active SV 2018-02-20 00:00:00 [facility] hydromorphone DA Active SV 2018-02-20 00:00:00 [facility] methadone DA Active SV 2018-02-20 00:00:00 [facility] hydromorphone DA Active SV 2018-02-10 00:00:00 [facility] morphine DA Active SV 2017-12-30 00:00:00 [facility] clindamycin DA Active SV 2017-12-30 00:00:00 [facility] methadone DA Active SV 2017-12-30 00:00:00 [facility] Clindamycin Propensity to adverse reactions Active Itc carlos, Nausea Only 2017-05-21 00:00:00 [facility] Hydromorphone (Bulk) Propensity to adverse reactions Active Other (See Comments) 2017-05-21 00:00:00 "black out"-no recoll ection of what happened [facility] Methadone Propensity to adverse reactions Active Othe r (See Comments) 2017-05-21 00:00:00 confusion [facility] Morphine Propensity to adverse reactions Active Itching 2017[facility]04 [facility] Der[facility] Morphine Derivatives Active 2013-10-06 00:00:00 [facility] morphine morphine Active 2013-09-29 00:00:00 [facility] clindamycin clindamycin Active [facility] methadone methadone Active Heri roberts Mauro Dilaudid Dilaudid Active Marco chencho Wade Social History Social Habit Start Date Stop Date Quantity Comments Source Sex Assigned At [facility] Social History 2013-09-29 15:44:12 2013-09-29 15:44:12 [facility] Smoking Status Start Date Stop Date Source Never smoker [facility] Medications Ordered Medication Name Filled Medication Name Start Date Stop Da te Current Medication? Ordering Clinician Indication Dosage Frequency Signature (SIG) Comments Components Source Diclofenac Sodium (Voltaren) 100 Gm GEL..GRAM. Diclofe nac Sodium (Voltaren) 100 Gm GEL..GRAM. 2020-02-14 10:28:00 Yes 1 Twice A Day as needed for Pain [facility] Enoxaparin Sodium Enoxaparin Sodium 2020-01-19 08:57:00 Yes 40 Daily [facility] Hydrocodone/Apap 7.5MG-325MG Hydrocodone/Apap 7.5MG-325MG 07-21 14:41:00 2019-07-06 00:00:00 No 1 Every 6 Hours as nee ded for Pain [facility] Collagenase Collagenase 2017-07-21 14:41:00 2018-05-04 00:00:00 No 1 Use As Directed [facility] Ascorbic Acid Ascorbic Acid 2017-07-21 14:41:00 2017-10-28 00:00:00 No 500 Twice A Day [facility] Aspirin (Aspirin Ec) 81 Mg TABLET. Aspirin (Aspirin Ec) 81 Mg TABLET. 2017-07-21 14:41:00 2017-10-28 00:00:00 No 81 Every Morning [facility] Enoxaparin Sodium (Lovenox) 40 Mg/0.4 Ml INJ Enoxapari n Sodium (Lovenox) 40 Mg/0.4 Ml INJ 2017-07-21 14:41:00 2017-10-28 00:00:00 No 40 Daily At 1700 [facility] Ferrous Sulfate Ferrous Sulfate 2017-07-21 14:41:00 2017-10-28 00:00:00 No 325 Twice Daily With Meals [facility] Multivitamins/Minerals Multivitamins/Minerals 2017-07-21 14:41:0 0 2017-10-28 00:00:00 No 1 Daily [facility] Nystatin ([facility]) 15 Gm POWD Nystatin ([facility]) 15 Gm POWD 07-21 14:41:00 2017-10-28 00:00:00 No 0 Daily [facility] Ondansetron Hcl/Pf (Ondansetron Hcl 4 Mg/2 Ml Vial) 4 Mg/2 Ml VIAL Ondansetron Hcl/Pf (Ondansetron Hcl 4 Mg/2 Ml Vial) 4 Mg/2 Ml VIAL 2017-07-21 14:41:00 2017-10-28 00:00:00 No 4 Every 4 Ho urs as needed for Nausea And Vomiting [facility] Rfzxgmlypooz-Nfkp-Owmivmde,Iso (Zosyn 3. 375 Gm Galaxy Bag) 3.375 Gm/50 Ml FROZ.PIGGY Aogkjnjndkdc-Kuig-Woomtmcp,Iso (Zosyn 3. 375 Gm Galaxy Bag) 3.375 Gm/50 Ml FROZ.PIGGY 2017-07-21 14:41:00 2017-10-28 00:00:00 No 3.375 Every 6 Hours [facility] Silver (Silvasorb) 480 Ml GEL.ER.ML. Silver (Silvasorb) 480 Ml GEL.ER.ML. 2017-07-21 14:41:00 2017-10-28 00:00:00 No 1 Use A s Directed [facility] Vancomycin/0.9% Sod Chloride (Vancomycin -0.9% Nacl 1 G/250) 1 Gm/250 Ml PLAST..BAG Vancomycin/0.9% Sod Chloride (Vancomycin -0.9% Nacl 1 G/250) 1 Gm/250 Ml PLAST..BAG 2017-07-21 14:41:00 2017-10-28 00:00:00 No 1 Every 12 Hours [facility] gabapentin (NEURONTIN) 800 MG tablet 2017-05-21 11:39:01 Yes 800mg Q.25D Take 800 mg by mouth 4 (four) times daily. [facility] pramipexole (MIRAPEX) 1 MG tablet 2017-05-21 11:39:01 Yes 2mg Q.25D Take 2 mg by mouth 4 (four) times daily. [facility] DULoxetine (CYMBALTA) 60 MG capsule 2017-05-21 11:39:01 Yes 60mg Q.5D Take 60 mg by mouth 2 (two) times daily. [facility] HYDROcodone-acetaminophen (NORCO 5-325) 5-325 mg per tablet 2017-05-21 11:39:01 Yes 1{tbl} Take 1 tab let by mouth every 6 (six) hours as needed for Pain. [facility] amitriptyline (ELAVIL) 10 MG tablet 2017-05-21 11:39:01 Yes 10mg QD Take 10 mg by mouth nightly. [facility] metoprolol (LOPRESSOR) 25 MG tablet 2017-05-21 11:39:01 Yes 25mg QD Take 25 mg by mouth nightly. [facility] mupirocin (BACTROBAN) 2 % ointment 2017-05-21 11:39:01 Yes Q.5D Apply topically 2 (two) times daily Open wound left heel . [facility] pantoprazole (PROTONIX) 40 MG tablet 2017-05-21 11:39:00 Ye s 40mg QD Take 40 mg by mouth daily. [facility] furosemide (LASIX) 40 MG tablet 2017-05-21 11:39:00 Yes 40mg Q.5D Take 40 mg by mouth 2 (two) times daily. [facility] pantoprazole 40 mg oral enteric [...] Bedtime, # 90 tab, 3 [facility] Collagenase Clostridium Hist. (Santyl) 15 Gm OINT...G. Collagenase Clostridium Hist. (Santyl) 15 Gm OINT...G. 2016-09-16 13:24:00 2017-07-18 00:00:00 No 1 Bedtime [facility] Lactobacillus Acidophilus (Acidophilus-Pectin Capsule) 1 Tab TAB Lactobacillus Acidophilus (Acidophilus-Pectin Capsule) 1 Tab TAB 2016-09-16 13:24:00 2016-10-23 00:00:00 No 1 Twice A Day [facility] Silver (Silvasorb) 480 Ml GEL.ER.ML. Silver (Silvasorb) 480 Ml GEL.ER.ML. 2016-09-16 13:24:00 2016-10-23 00:00:00 No 1 Daily [facility] Collagenase Clostridium Hist. (Santyl) 15 Gm OINT...G. Collagenase Clostridium Hist. (Santyl) 15 Gm OINT...G. 2016-07-12 09:56:00 2016-10-23 00:00:00 No 0 Daily [facility] Acetaminophen Acetaminophen 2016-07-12 09:56:00 2016-08-31 00:00:00 No 650 Every 4 Hours as needed for Pain And Temperature [facility] Albuterol/Ipratropium Nebulize Albuterol/Ipratropium Nebuliz e 2016-07-12 09:56:00 2016-08-31 00:00:00 No 3 Rt Q6h [facility] Enoxaparin Sodium (Lovenox) 40 Mg/0.4 Ml INJ Enoxapari n Sodium (Lovenox) 40 Mg/0.4 Ml INJ 2016-07-12 09:56:00 2016-08-31 00:00:00 No 40 Daily At 1700 [facility] Famotidine Famotidine 2016-07-12 09:56:00 2016-08-31 00:00:00 No 20 Twice Daily Before Meals [facility] Ketorolac Tromethamine Ketorolac Tromethamine 2016-07-12 09:56:0 0 2016-08-31 00:00:00 No 30 Every 6 Hours as needed for Ganga n [facility] Nystatin ([facility]) 15 Gm POWD Nystatin ([facility]) 15 Gm POWD 07-12 09:56:00 2016-08-31 00:00:00 No 0 Twice A Day [facility] Nystatin Nystatin 2016-07-12 09:56:00 2016-08-31 00:00:00 No 0 Twice A Day [facility] Ondansetron Hcl/Pf (Ondansetron Hcl 4 Mg/2 Ml Vial) 4 Mg/2 Ml VIAL Ondansetron Hcl/Pf (Ondansetron Hcl 4 Mg/2 Ml Vial) 4 Mg/2 Ml VIAL 2016-07-12 09:56:00 2016-08-31 00:00:00 No 4 Every 4 Ho urs as needed for Nausea And Vomiting [facility] Mbscchayuwpi-Scob-Sjijwnha,Iso (Zosyn 3. 375 Gm Galaxy Bag) 3.375 Gm/50 Ml FROZ.PIGGY Kbbdzazljgeb-Gslp-Mdyvjdkl,Iso (Zosyn 3. 375 Gm Galaxy Bag) 3.375 Gm/50 Ml FROZ.PIGGY 2016-07-12 09:56:00 2016-08-31 00:00:00 No 3.375 Every 8 Hours [facility] Pramipexole Dihydrochloride (Mirapex) 1 Mg TAB Pramipe xole Dihydrochloride (Mirapex) 1 Mg TAB 2016-07-12 09:56:00 2016-08-31 00:00:00 No 1 Three Times A Day [facility] Sucralfate (Carafate) 1 Gm TABLET Sucralfate (Carafate) 1 Gm TABLET 2016-07-12 09:56:00 2016-08-31 00:00:00 No 1 Before Meals And At Bedtime [facility] Vancomycin/0.9% Sod Chloride (Vancomycin -0.9% Nacl 1 G/250) 1 Gm/250 Ml PLAST..BAG Vancomycin/0.9% Sod Chloride (Vancomycin -0.9% Nacl 1 G/250) 1 Gm/250 Ml PLAST..BAG 2016-07-12 09:56:00 2016-08-31 00:00:00 No 1 Every 12 Hours [facility] Lac12 Lac12 2014-08-03 13:36:00 2015-11-10 00:00:00 No 1 Twice A Day [facility] [id number] 2014-08-03 13:36:00 2015-11-10 00:00:00 No 1 Daily [facility] Sulfamethoxazole/Trimethoprim (Bactrim Ds Tablet) 1 Ea ch TABLET Sulfamethoxazole/Trimethoprim (Bactrim Ds Tablet) 1 Each TABLET 2014-08-03 13:36:00 2015-11-10 00:00:00 No 1 Twice A Day [facility] Lisinopril, 5 MG, Tablet 2013-10-29 00:00:00 No Mark Wade Acetaminophen, 500 MG, Tablet 2013-10-27 00:00:00 Yane Wade Azithromycin, 1 GM, Packet 2013-10-27 00:00:00 2013-10-31 06:00:00 Yane [facility] guillermo Pramipexole Dihydrochloride, 0.75 MG, Tablet 2013-10-19 00 :00:00 No Mark [facility] guillermo Furosemide, 20 MG, Tablet 2013-10-19 00:00:00 No Mark M [facility] Furosemide, 20 MG, Tablet 2013-10-12 00:00:00 2013-10-19 0 6:00:00 No Mark Means [facility] guillermo ROPINIRole HCl, 0.25 MG, Tablet 2013-10-06 00:00:00 10-19 06:00:00 No Mark Linn Claudia Saleh Bumetanide Bumetanide Yes 1 As Needed [facility] Diclofenac Sodium (Voltaren) 100 Gm GEL..GRAM. Diclofe nac Sodium (Voltaren) 100 Gm GEL..GRAM. Yes [facility] Digoxin Digoxin Yes 250 Bedtime [facility] Docusate Sodium (Colace) 100 Mg CAP Docusate Sodium (Colace) 100 Mg C AP Yes 100 Daily [facility] Duloxetine Hcl (Cymbalta) 30 Mg CAPSULE. Duloxetine Hcl (Cymbalta) 30 Mg CAPSULE. Yes 60 Twice A Day [facility] Gabapentin (Neurontin) 300 Mg CAPSULE Gabapentin (Neurontin) 300 Mg CAPSULE Yes 800 Three Times A Day [facility] Lactobac Cmb #3/Fos/Pantethine (Probiotic & Acidophilu s Cap) 1 Each CAPSULE Lactobac Cmb #3/Fos/Pantethine (Probiotic & Acidophilus Cap) 1 Each CAPSULE Yes 1 Daily [facility] Melatonin Melatonin Yes 10 [facility] Metoprolol Tartrate Metoprolol Tartrate Yes 25 Twice A Day [facility] Pantoprazole Sodium (Protonix) 40 Mg TABLET. Pantopr azole Sodium (Protonix) 40 Mg TABLET. Yes 40 Daily [facility] Pramipexole Dihydrochloride (Mirapex) 1 Mg TAB Pramipe xole Dihydrochloride (Mirapex) 1 Mg TAB Yes 4 Three Times A Day [facility] Tylenol Es Tylenol Es Yes [facility] Vitamin D Vitamin D Yes 1.25 [facility] Aspirin (Aspir-Low) 81 Mg TABLET. Aspirin (Aspir-Low) 81 Mg TA BLET. 2020-01-19 00:00:00 No 81 Daily [facility] Bentyl Bentyl 2020-01-11 00:00:00 No Three Times A Day [facility] Mv-Mn/Iron/Folic Acid/Herb 190 (Vitamin D3 Complete Ca plet) 1 Each TABLET Mv- Mn/Iron/Folic Acid/Herb 190 (Vitamin D3 Complete Caplet) 1 Each TABLET 2020-01-11 00:00:00 No 1.25 Weekly [facility] Risedronate Sodium (Actonel) 35 Mg TABLET Risedronate Sodium (Actonel) 35 Mg TABLET 2020-01-11 00:00:00 No 35 [facility] Docusate Sodium (Colace) 100 Mg CAP Docusate Sodium (Colace) 100 Mg CAP 2019-07-06 00:00:00 No 100 Daily [facility] Morphine Sulfate (Morphine Sulfate Er) 30 Mg TABLET.ER Morphine Sulfate (Morphine Sulfate Er) 30 Mg TABLET.ER 2019-07-06 00:00:00 No 15 Daily [facility] Nerve Renew B1 &B12 Nerve Renew B1 &B12 2019-07-06 00:00:00 No 1 Twice A Day [facility] Nerve Repair Nerve Repair 2019-07-06 00:00:00 No 1 Daily [facility] Polyethylene Glycol 3350 (Miralax) 17 Gm POWD.PACK Jonathan yethylene Glycol 3350 (Miralax) 17 Gm POWD.PACK 2019-07-06 00:00:00 No 1 Daily [facility] Rivaroxaban (Xarelto) 10 Mg TABLET Rivaroxaban (Xarelto) 10 Mg T ABLET 2019-07-06 00:00:00 No [facility] Bent Bent 2018-10-14 00:00:00 No [facility] Amitriptyline Hcl Amitriptyline Hcl 2018-05-04 00:00:00 No 10 Daily [facility] Furosemide (Lasix) 40 Mg TABLET Furosemide (Lasix) 40 Mg TABLET 2017-07-21 00:00:00 No 40 Twice A Day [facility] Gabapentin Enacarbil (Horizant) 600 Mg TAB.ER.24H Yenifer pentin Enacarbil (Horizant) 600 Mg TAB.ER.24H 2017-07-18 00:00:00 No [facility] Silver (Silvasorb) 480 Ml GEL.ER.ML. Silver (Silvasorb) 480 Ml G EL.ER.ML. 2017-07-18 00:00:00 No [facility] Sucralfate (Carafate) 1 Gm/10 Ml ORAL.SUSP Sucralfate (Carafate) 1 Gm/10 Ml ORAL.SUSP 2016-10-23 00:00:00 No 1 Four Times [place] ly [facility] Acetaminophen Acetaminophen 2016-08-31 00:00:00 No 650 Q4hr Prn for Pain And Fever [facility] Ciclopirox Olamine (Ciclopirox) 15 Gm CREAM..G. Ciclop irox Olamine (Ciclopirox) 15 Gm CREAM..G. 2016-08-31 00:00:00 No 15 Daily [facility] Doxcycline Monohyde Doxcycline Monohyde 2016-08-31 00:00:00 No 100 Twice A Day [facility] Meloxicam (Mobic) 15 Mg TABLET Meloxicam (Mobic) 15 Mg TABLET 2016-08-31 00:00:00 No 50 Daily [facility] Furosemide (Lasix) 40 Mg TABLET Furosemide (Lasix) 40 Mg TABLET 2016-07-02 00:00:00 No 20 Bedtime [facility] Metolazone Metolazone 2016-07-01 00:00:00 No 2.5 [place] ly [facility] Tizanidine Hcl (Zanaflex) 4 Mg TABLET Tizanidine Hcl (Zanaflex) 4 Mg TABLET 2016-07-01 00:00:00 No 4 As Needed [facility] Ferrous Sulfate Ferrous Sulfate 2015-11-10 00:00:00 No 65 Daily [facility] Furosemide (Lasix) 40 Mg TABLET Furosemide (Lasix) 40 Mg TABLET 2015-11-10 00:00:00 No 40 Daily [facility] Pramipexole Di-Hcl (Mirapex) 0.5 Mg TABLET Pramipexole Di-Hcl (Mirapex) 0.5 Mg TABLET 2015-11-10 00:00:00 No .5 Twice A Day [facility] Ranitidine Hcl (Zantac) 150 Mg TABLET Ranitidine Hcl (Zantac) 15 0 Mg TABLET 2015-11-10 00:00:00 No 150 Twice A Day [facility] Tramadol Hcl (Ultram 50MG*) 50 Mg TAB Tramadol Hcl (Ultram 50MG* ) 50 Mg TAB 2015-11-10 00:00:00 No 50 As Needed [facility] Pramipexole Di-Hcl (Mirapex) 0.75 Mg TABLET Pramipexol e Di-Hcl (Mirapex) 0.75 Mg TABLET 2014 00:00:00 No [facility] Hydrocodone Bit/Acetaminophen ([place] 7.5-325 Tablet) 1 Each TABLET Hydrocodone Bit/Acetaminophen ([place] 7.5-325 Tablet) 1 Each TABLET 00:00:00 No [facility] Vital Signs Vital Name Observation Time Observation Value Comments Source Weight 2020-02-14 08:51:00 256 [lb_av] [facility] BMI (Body Mass Index) 2020-02-14 08:51:00 43.9 kg/m2 [facility] Body Temperature 2020-01-19 12:12:00 98.3 [degF] [facility] BMI (Body Mass Index) 2020-01-19 00:44:00 43.9 kg/m2 [facility] Weight 2020-01-18 16:43:00 256 [lb_av] [facility] Heart Rate 2017-05-09 17:15:00 [facility] Systolic (mm Hg) 2017-05-09 17:15:00 Heri [facility] Diastolic (mm Hg) 2017-05-09 17:15:00 Mem [facility] Heart Rate 2017-05-09 17:08:00 [facility] Systolic (mm Hg) 2017-05-09 17:08:00 Heri [facility] Diastolic (mm Hg) 2017-05-09 17:08:00 [facility] Heart Rate 2017-05-09 13:49:00 [facility] Systolic (mm Hg) 2017-05-09 13:49:00 Heri [facility] Diastolic (mm Hg) 2017-05-09 13:49:00 [facility] Temperature Oral (F) 2017-05-09 13:49:00 97.6 F [facility] Weight 2017-05-08 15:33:00 [facility] BMI Calculated 2017-05-08 15:33:00 [facility] Height 2017-05-08 15:33:00 162.56 cm [facility] Procedures Procedure Date / Time Performed Performing Clinician [facility] TOTAL HIP ARTHROPLASTY 2020-01-18 00:00:00 [facility] X-ray of chest, two views 2020-01-03 00:00:00 [facility] EGD BIOPSY SINGLE/MULTIPLE 2019-07-09 00:00:00 [facility] DILATE ESOPHAGUS 1/MULT PASS 2019-07-09 00:00:00 [facility] Primary reverse polarity total prostheti c replacement of shoulder joint using cement 2013-10-04 05:00:00 [facility] Carpal tunnel release<sup>1</sup> 2008-06-23 06:00:00 [facility] Cholecystectomy 2003-06-23 06:00:00 [facility] Excision of mass of neck 1996-06-23 06:00:00 [facility] Breast biopsy and related procedures 1988-06-23 06:00:00 [facility] Hysterectomy 1985-06-23 06:00:00 [facility] Cervical spinal fusion 1972-06-23 06:00:00 Camron Wade Tonsillectomy 1951-06-23 06:00:00 [facility] Arthroplasty of shoulder Memoria l Mauro Back fusion<sup>2</sup> [facility] Fasciotomy [facility] Foot joint operations [facility] Plan of Care Planned Activity Planned Date Details Comments Source Future Scheduled Test 2020-02-22 00:00:00 INFLUENZA VACCINE (#1) [code = INFLUENZA VACCINE (#1)] [facility] Future Scheduled Test 2013-07-25 00:00:00 MEDICARE ANNUAL WE LLNESS (YEAR 2 or FIRST YEAR if no IPPE) [code = MEDICARE ANNUAL WELLNESS (YEAR 2 or FIRST YEAR if no IPPE)] [facility] Future Scheduled Test 2012 00:00:00 PNEUMOCOCCAL 65+ L OW/MEDIUM RISK (1 of 2 - PCV13) [code = PNEUMOCOCCAL 65+ LOW/MEDIUM RISK (1 of 2 - PCV13)] [facility] Future Scheduled Test 1945 00:00:00 Screening for ivonne gnant neoplasm of breast (procedure) [code = 080238805] [facility] edical [place] Future Scheduled Test 1945 00:00:00 Screening for ivonne gnant neoplasm of colon (procedure) [code = 839740113] [facility] dical [place] Instructions Knee Overuse [facility] Encounters Start Date/Time End Date/Time Encounter Type Admission Type Attendi [facility] Care Department Encounter ID Source 2020-02-14 09:15:00 2020-02-14 09:15:00 Registered Emergency Room 1 MOE DAO [facility] [id number] [facility] 2020-01-18 09:22:00 2020-01-19 15:18:00 Discharged Inpatient (obs) 3 NENA KNOX [facility] [id number] [facility] 2020-01-03 09:21:00 2020-01-03 09:21:00 Registered Clinic 3 KEYSHAWN HEATON [facility] [id number] [facility] 2019-07-09 05:15:00 2019-07-09 05:15:00 Registered Surgical Day Care [facility] [id number] [facility] 2017-10-27 19:21:00 2017-10-30 19:12:00 Discharged Inpatient ER [facility] [id number] [facility] 2017-07-18 15:45:00 2017-07-21 20:53:00 Discharged Inpatient ER [facility] [id number] [facility] 2017-05-16 08:26:00 2017-05-16 23:59:00 Outpatient Paltao Prit i MHOIB MHOIB [id number] 2017-05-09 07:15:00 2017-05-09 12:18:00 Outpatient Palvasheri Prit i MHSE MHSE [id number] Results Test Description Test Time Test Comments Results Result Comments Source PELVIS AP 1-2 VIEWS 2020-03-06 13:33:00 [place] [address] Patient Name: LAKEISHA GIL MR #: [id number] : 1945 Age/Sex: 74/F Req #: [id number] [facility] Physician: Ordered by: NENA KNOX MD Report #: [id number] Location: OR Room/Bed: Procedure: [id number] DX/PELVIS AP 1-2 VIEWS Exam Date: 03/06/20 Exam Time: 1317 REPORT STATUS: Signed Pelvis, one view INDICATION: POST OP [id number] IN PACU Comparison: 03/06/2020. Discussion: Redemonstration of postoperative changes of the right hip with lateral fixation plate and cerclage wires overlying the proximal right femur. Stable right hip arthroplasty with a single right acetabular fixation screw in anatomic alignment. Pubic symphysis is not widened. Partially visualized spinal fusion changes and spinal cord sigmoid are noted in the left lower quadrant. Right hip is intact. IMPRESSION: Stable post surgical changes from right proximal femoral lateral plate fixation with cerclage wires. Stable post surgical changes from right hip arthroplasty with anatomic alignment of the prostheses. Signed by: Drake Kelly MD on 03/06/2020 1:36 PM Dictated By: DRAKE KELLY MD 35 Transcribed By: GEOFFREY on 03/06/201335 COPY TO: NENA KNOX MD FEMUR ONE VIEW RIGHT 2020-03-06 12:55:00 [place] [address] Patient Name: LAKEISHA GIL MR #: [id number] : 1945 Age/Sex: 74/F Req #: [id number] Adm Physician: Ordered by: NENA KNOX MD Report #: [id number] Location: OR Room/Bed: Procedure: [id number] DX/FEMUR ONE VIEW RIGHT Exam Date: Exam Time: REPORT STATUS: Signed Exam: FEMUR ONE VIEW RIGHT - single crosstable lateral view History: Fracture right femur Comparison: Pelvis radiographs 01/18/2020 Findings: Status post placement of lateral fixation plate and cerclage wires at the proximal right femur. Proximal right femur fracture deformity is not visualized on current radiograph and may be obscured secondary to overlying hardware. Status post right total hip arthroplasty with unchanged alignment of femoral and acetabular prostheses. No joint malalignment. Postsurgical changes along the lateral soft tissues overlying the proximal femur. Impression: 1. Status post placement of fixation plate and cerclage wires at the proximal right femur. Associated overlying postsurgical soft tissue changes. 2. Status post right total hip arthroplasty with unchanged alignment of femoral and acetabular prostheses. Signed by: Dr. Levar Meng M.D. on 03/06/2020 1:00 PM Dictated By: LEVAR MENG MD 1300 Transcribed By: GEOFFREY on 03/06/20 1300 COPY TO: NENA KNOX MD KNEE RIGHT THREE VIEWS 2020-02-14 09:32:00 [place] [address] Patient Name: LAKEISHA GIL MR #: [id number] : 1945 Age/Sex: 74/F Req #: [id number] Adm Physician: Ordered by: MOE DAO MD Report #: [id number] Location: ER Room/Bed: Procedure: [id number] DX/KNEE RIGHT THREE VIEWS Exam Date: 02/14/20 Exam Time: 912 REPORT STATUS: Signed Exam: Radiographs of the right knee 3 views portable History: Right knee pain Comparison: 07/19/2017 FINDINGS: Bones: No acute displaced fracture. Osseous alignment is within normal limits. Joints: Moderate tricompartmental degenerative changes. No osseous erosion Soft tissues: Mild soft tissue swelling. Chondrocalcinosis. IMPRESSION: Moderate tricompartmental degenerative changes. No osseous erosion Chondrocalcinosis. Correlate for CPPD Signed by: Dr. Angeles Fulton M.D. on 02/14/2020 9:35 AM Dictated By: ANGELES FULTON MD, MD 0935 Transcribed By: GEOFFREY on 02/14/2079 COPY TO: MOE DAO MD Blood hemoglobin measurement (moles/volume) 2020-01-19 05:00 :00 Test Item Hemoglobin (test code = 35072-9) 9.7 12.0-16.0 [facility] hemat[facility] (volume fraction)2020-01-19 05:00:00* Test Item Value Reference Range Interpretation Comments Hematocrit (test code = 4544-3) 31.6 34.2-44.1 [facility] (moles/volume)2020-01-19 05:00:00* Test Item Value Reference Range Interpretation Comments Hemoglobin (test code = 17891-9) 9.7 12.0-16.0 [facility] hematocrit (volume fraction)2020-01-19 05:00:00* Test Item Value Reference Range Interpretation Comments Hematocrit (test code = 4544-3) 31.6 34.2-44.1 [facility] AP 1-2 [id number] 10:42:00 [place] [address] Patient Name: LAKEISHA GIL MR #: [id number] : 1945 Age/Sex: 74/F Req #: [id number] Adm Physician: NENA KNOX MD Ordered by: NENA KNOX MD Report #: [id number] Location: PACU V Room/Bed: V PACU-1 Procedure: [id number] DX/PELVIS A P 1-2 VIEWS Exam Date: 01/18/20 Exam Time: 1025 REPORT STATUS: Signed EXAMINATION: PELVIS AP 1-2 VIEWS INDICATION: Postoperative COMPARISON: None FINDINGS: AP view of the pelvis demonstrates postoperative findings of right total hip replacement. Alignment is anatomic. No unexpected fracture. Hardware intact. Moderate degenerative changes of the [place] left hip joint. Phleboliths in the pelvis. IMPRESSION: Anatomic alignment status post right total hip replacement. Signed by: Jamel Pike MD on 01/18/2020 10:43 A M Dictated By: JAMEL PIKE MD 1043 Transcribed By: GEOFFREY on 01/18/20 1043 COPY TO: NENA KNOX MD Fluoroscopic procedure less than one hour [id number] 09:35:00* Test Item Value Reference Range Interpretation Comments Coronavirus (PCR) (test code = Coronavirus (PCR)) NOT DETECTED NOTD ETECTED sunne.wsgic Aptima SARS-CoV-2 assay is a nucleic amplification test intended for the qualitative detection of RNA from SARS-CoV-2 from nasopharyngeal (KNIFE SHARPENER) specimens. It is used under Emergency Use Authorization [...] for reprat testing oc clinically indicated.Tesing performed by:[facility] [address] [place] [address] [id number], Nick Echevarria MD, PhD [facility] procedure less than one hour [id number] 09:35:00* Test Item Value Reference Range Interpretation Comments Coronavirus (PCR) (test code = Coronavirus (PCR)) NOT DETECTED NOTD ETECTED sunne.wsgic Aptima SARS-CoV-2 assay is a nucleic amplification test intended for the qualitative detection of RNA from SARS-CoV-2 from nasopharyngeal (KNIFE SHARPENER) specimens. It is used under Emergency Use Authorization [...] for reprat testing oc clinically indicated.Tesing performed by:[facility] [address] [place] [address] [id number], Nick Echevarria MD, PhD [facility] 2 [id number] 12:34:00 [facility] [address] [place] [address] Patient Name: LAKEISHA GIL MR #: [id number] : 1945 Age/Sex: 74/F Req #: [id number] Adm Physician: Ordered by: KEYSHAWN HEATON DO Report #: [id number] Location: [facility] Room/Bed: Procedure: [id number] DX/CHEST 2 VIEWS Exam Date: 01/03/20 Exam Time: 1026 REPORT STATUS: Signed EXAMINATION: CHEST 2 VIEWS INDICATION: Pre-operative COMPARISON: Chest radiograph [...] By: JAMEL PIKE MD 1235 COPY TO: Odette HEATON DO - XR HIP W/PEL UNI 2+V [id number] 04:40:00 FAX: Tari Elaine [phone] [place]: St: REG FAX: Keyshawn Knowles DO [phone] Name: LAKEISHA IGL [facility] : 1945 Age/S: 74/F [address] [facility] Unit #: [id number] Loc: [place] [address] Phys: Tari Macias MD Acct: [id number] Dis Date: Status: REG ER PHONE #: [phone] Exam Date: 11/13/2019408 FAX #: [phone] Reason: pain s/p fall EXAMS: CPT CODE: [id number] XR HIP W/PEL UNI 2+[place] [address] EXAM: - XR HIP W/PEL UNI 2+V RT HISTORY: Fall, pain. COMPARISON: July 28, 2019. FINDINGS: AP and frog-leg lateral view of the right hip is provided. There is no definite evidence of acute fracture or dislocation. Chronic degenerative changes are present in right hip. Metallic hardware is present in lumbosacral spine. Limited exam due to large body habitus. IMPRESSION: No definite evidence of acute fracture. Chronic changes are present. Limited exam. at 0440 Reported and signed by: Celestine Pedersen MD CC: Tari Macias MD; Keyshawn Heaton Technologist: Enzo Griffin RT(R); JAIME TYSON RT(R) Trnscrd Date/Time/By: 11/13/2019 (0440) : By: [email or web address] Orig Print D/T: S: 11/13/2019 (5625) PAGE 1 Signed Report BASIC METABOLIC [id number] 03:31:00* Test Item Value Reference Range Interpretation [...] code = CA) 8.7 mg/dL 8.5-10.1 N [id number] 03:31:00* Test Item Value Reference Range Interpretation Comments MAGNESIUM (test code = MAG) 2.4 mg/dL 1.8-2.4 N [id number] 03:31:00* Test Item Value Reference Range Interpretation Comments TROPONIN-I (test code = TROPI) <0.015 ng/mL 0-0.045 N [id number] 03:31:00* Test Item Value Reference Range Interpretation [...] AT ANADDITIONAL CHARGE TO THE PATIENT. PROTHROMBIN [id number] 03:31:00* Test Item Value Reference Range Interpretation [...] (2.5-3.5) IS PATIENT ON ANTICOAGULANTS? NTHROMBOPLASTIN TIME [id number] 03:31:00* Test Item Value Reference Range Interpretation Comments THROMBOPLASTIN TIME PARTIAL (test code = PTT) 33.1 seconds 23.0-37. 0 N IS PATIENT ON ANTICOAGULANTS? N- XR CHEST 1 [id number] 03:31:00 FAX: Tari Elaine [phone] [place]: B St: [facility] FAX: Keyshawn Knowles DO [phone] Name: LAKEISHA GIL [facility] : 1945 Age/S: 74/F [address] Unit #: [id number] Loc: [place] [address] Phys: Tari Macias MD Acct: [id number] Dis Date: Status: REG ER PHONE #: [phone] Exam Date: 11/13/2019255 FAX #: [phone] Reason: WEAKNESS EXAMS: CPT CODE: [id number] XR CHEST 1 V 36537 - XR CHEST 1 V, 11/13/2019 2:19 [...] and signed by: Estrella Ching M.D. CC: Tari Macias MD; Keyshawn Heaton DO Technologist: Enzo HEARN(R) Trnscrd Date/Time/By: 11/13/2019 (330) : By: [email or web address] Orig Print D/T: S: 11/13/2019 (333) PAGE 1 Signed Report CBC W/O [id number] 03:29:00* Test Item Value Reference Range Interpretation [...] MPV) 10.5 fL 6.7-11.0 N CBC W/O [id number] 03:23:00* Test Item Value Reference Range Interpretation [...] code = MPV) fL 6.7-11.0 BASIC METABOLIC [id number] 03:20:00* Test Item Value Reference Range Interpretation [...] CALCIUM (test code = CA) mg/dL 8.5-10.1 [id number] 03:20:00* Test Item Value Reference Range Interpretation Comments MAGNESIUM (test code = MAG) mg/dL 1.8-2.4 [id number] 03:20:00* Test Item Value Reference Range Interpretation Comments TROPONIN-I (test code = TROPI) ng/mL 0-0.045 [id number] 03:20:00* Test Item Value Reference Range Interpretation Comments ALCOHOL (test code = ALC) mg/dL 0-3 - CT C-SPINE W/O [id number] 03:17:00 Name: LAKEISHA GIL [facility] : 1945 Age/S: 74 / F [address] [facility] Unit #: [id number] Loc: [place] [address] Phys: Tari Macias MD Acct: [id number] Dis Date: Status: REG ER PHONE #: [phone] Exam Date: 11/13/2019 0253 FAX #: [phone] Reason: fall, head injury, neck pain EXAMS: CPT CODE: [id number] CT C-SPINE W/O CONTRAST 41106 EXAM: - CT C-SPINE W/O CONTRAST HISTORY: [...] of bones. The prevertebral soft tissues are within normal limits. The visualized soft tissues of the neck show no significant abnormalities. Degenerative disc disease and facet arthropathy is present at multiple levels. Prior surgical changes and metallic hardware. Li mited exam. IMPRESSION: No definite acute osse ous abnormality with other findings as above. at 0317 Reported and signed by: Celestine Shaikh MD CC: Tari Macias MD; Bam Heaton DO Technologist:Robert Cain, RT(R)(CT) CTDI: DLP: Trnscb Date/Time: 11/13/2019 (316) [email or web address] Orig Print D/T: S: 11/13/2019 (319) PAGE 1 Signed Report - CT HEAD/BRAIN W/O [id number] 03:12:00 Name: LAKEISHA GIL [facility] : 1945 Age/S: 74 / F [address] [facility] Unit #: [id number] Loc: [place] [address] Phys: Tari Macias MD Acct: [id number] Di s Date: Status: REG ER PHONE #: [phone] Exam Date: 11/13/2019 0253 FAX #: Reason: fall, head injury EXAMS: CPT CODE: [id number] CT HEAD/BRAIN W/O CONT 44529 EXAM: - CT HEAD/BRAIN W/O CONT HISTORY: Fall. TECHNIQUE: Axial tomograms thr ough the brain were obtained without intravenous contrast. This exam was performed according to our departmental dose-optimization program, wh ich includes automated exposure control, adjustment of the mA and/or kV ac cording to patient size and/or use of iterative reconstruction technique. COMPARISON: July 28, 2019. FINDINGS: There is no intracranial hemorrhage, mass, or mass effect. The ventricular system and sulci are age-appropriate. Evaluation limited due to artifact. There is no significant change compared [...] CTDI: DLP: Trnscb D ate/Time: 11/13/2019 (311) [email or web address] Orig Print D/T: S: 11/13/2019 (7) PAGE 1 Signed Report [id number] 07:39:00* Test Item Value Reference Range Interpretation [...] This LDL result is a direct measurement.========= [id number] 23:32:00* Test Item Value Reference Range Interpretation Comments TROPONIN-I (test code = TROPI) <0.015 ng/mL 0-0.045 N COMMENTS TO CELL BIOLOGY SCIENTIST: COLLECT 3 HOURS AFTER PREVIOUS [id number] 19:26:00* Test Item Value Reference Range Interpretation Comments TROPONIN-I (test code = TROPI) <0.015 ng/mL 0-0.045 N COMMENTS TO CELL BIOLOGY SCIENTIST: COLLECT 3 HOURS AFTER PREVIOUS [id number] 16:54:00* Test Item Value Reference Range Interpretation Comments DIGOXIN (test code = DIG) 1.4 ng/mL 0.90-2.0 N NO TE: Spironolactone interference may cause a decrease inreported Digoxin results of 11-30 %. PROTHROMBIN [id number] 16:47:00* Test Item Value Reference Range Interpretation [...] Mechanical prosthetic heart valves (2.5-3.5) THROMBOPLASTIN TIME [id number] 16:47:00* Test Item Value Reference Range Interpretation Comments THROMBOPLASTIN TIME PARTIAL (test code = PTT) 31.3 seconds 23.0-37. 0 N B-TYPE NATRIURETIC [id number] 13:45:00* Test Item Value Reference Range Interpretation Comments B-TYPE NATRIURETIC PEPTIDE (test code = BNP) 59.81 pgram/mL 0-100 N BASIC METABOLIC [id number] 13:03:00* Test Item Value Reference Range Interpretation [...] code = CA) 8.6 mg/dL 8.5-10.1 N [id number] 13:03:00* Test Item Value Reference Range Interpretation Comments TROPONIN-I (test code = TROPI) <0.015 ng/mL 0-0.045 N BASIC METABOLIC [id number] 12:52:00* Test Item Value Reference Range Interpretation [...] CALCIUM (test code = CA) mg/dL 8.5-10.1 [id number] 12:52:00* Test Item Value Reference Range Interpretation Comments TROPONIN-I (test code = TROPI) ng/mL 0-0.045 CBC W/O [id number] 12:44:00* Test Item Value Reference Range Interpretation [...] fL 6.7-11.0 H - XR CHEST 1 [id number] 11:48:00 FAX: Dioni Benson [phone] [place]: B St: REG FAX: Keyshawn Knowles DO [phone] Name: LAKEISHA GIL [facility] : 1945 Age/S: 74/F [address] Unit #: [id number] Loc: [place] [address] Phys: Dioni Benson MD Acct: [id number] Dis Date: Status: REG ER PHONE #: [phone] Exam Date: 10/12/2019 1140 FAX #: [phone] Reason: CHEST PAIN EXAMS: CPT CODE: [id number] XR CHEST 1 V 51693 HISTORY: Chest pain. COMPARISON: June 08, 2019. Location: [facility]. No acute infiltrates, effusion or congestion is noted. Dependent changes. Cardiomegaly. Thecal sac catheter. Pedicular screws in the lower dorsal and upper lumbar spine noted again. Shoulder prosthesis on the left noted again. IMPRESSION: No acute infiltrates, effusion or congestion. Suboptimal inspiration with dependent changes. at 1148 Reported and signed by: Nick Singleton M.D. CC: Dioni Benson MD; Keyshawn Heaton DO Technologist: Kiley Majano, RT(R); FAREED KOCH RT(R) Trntnrd Date/Time/By: 10/12/2019 (1148) : By: [email or web address] Orig Print D/T: S: 10/12/2019 (7621) PAGE 1 Signed Report COMPREHENSIVE METABOLIC PANEL 2019-09-07 11:31:00* Test Item Value Reference Range Interpretation [...] due to change in reagent. CBC W/AUTO [id number] 11:23:00* Test Item Value Reference Range Interpretation [...] (test code = MDIFF) NO CBC W/AUTO [id number] 11:22:00* Test Item Value Reference Range Interpretation [...] code = BA#) K/mm3 0.0-0.2 COMPREHENSIVE METABOLIC [id number] 11:22:00* Test Item Value Reference Range Interpretation [...] ALKP) IUnit/L 45-117 - CT C-SPINE W/O [id number] 05:45:00 Name: LAKEISHA GIL [facility] : 1945 Age/S: 73 / F [address] [facility] Unit #: [id number] Loc: [place] [address] Phys: Dioni Benson MD Acct: [id number] Dis Date: Status: REG ER PHONE #: [phone] Exam Date: 07/28/2019519 FAX #: [phone] Reason: Neck Pain EXAMS: CPT CODE: [id number] CT C-SPINE W/O CONTRAST 58808 CT of the brain without contrast and [...] hemorrhage or mass effect. No intra-axial or extra-axial fluid collections are seen. There are diffuse periventricular and subcortical white matter hypodensities which are nonspecific, but likely the sequelae of chronic microvascular ischemia. The visualized paranasal sinuses and mastoid air cells are clear. 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 Impression: No acute intracranial hemmorhage or significant mass effect No evidence of acute osseous cervical fracture or traumatic subluxation Multiple Additional findings as above. at 0545 Reported and signed by: Estrella Ching M.D. CC: Dioni Benson MD; Ari Heaton Technologist:RT VICK CTDI: DLP: Trnscb Date/Time: 07/28/2019 (0545) [email or web address] Orig Print D/T: S: 07/28/2019 (0537) PAGE 2 Signed Report - CT HEAD/BRAIN W/O [id number] 05:45:00 Name: LAKEISHA GIL [facility] : 1945 Age/S: 73 / F [address] Unit #: [id number] Loc: [place] [address] Phys: Dioni Benson MD Acct: [id number] Di s Date: Status: REG ER PHONE #: Exam Date: 07/28/2019519 FAX #: [phone] Reason: HEADACHE EXAMS: CPT CODE: [id number] CT HEAD/BRAIN W/O CONT 30179 CT of the brain without c ontrast [...] and mastoid air cells are clear. The misbha m hardening from patient's dental work limits [...] 1 Signed Report (CONTINUED) Name: LAKEISHA GIL [facility] : 1945 Age/S: 73 / F [address] Unit #: [id number] Loc: [place], [place] [address] Phys: Dioni Bensno MD Acct: [id number] Dis Date: Status: REG ER PHONE #: [phone] Exam Date: 07/28/2019519 FAX #: [phone] Reason: HEADACHE EXAMS: CPT CODE: [id number] HEAD/BRAIN W/O CONT 07964 < Continued> appearance to prior, the largest [...] (544) t.SDR.SR31 Orig Print D/T: S: 07/28/2019 (0548) PAGE 2 Signed Report - XR KNEE 3 V [id number] 05:42:00 FAX: Dioni Benson [phone] [place]: B St: REG FAX: Ari Knowles [phone] Name: LAKEISHA GIL [facility] : 1945 Age/S: 73/F [address] Unit #: [id number] Loc: [place] [address] Phys: Dioni Benson MD Acct: [id number] Dis Date: Status: REG ER PHONE #: [phone] Exam Date: 07/28/2019522 FAX #: [phone] Reason: KNEE PAIN EXAMS: CPT CODE: [id number] XR KNEE 3 V RT 00891 R16 EXAM: - XR KNEE 3 V RT HISTORY: KNEE PAIN COMPARISON: None FINDINGS: No acute fracture or dislocation. Mild tricompartmental joint narrowing wi th osteophyte formation. No aggressive osseous lesions. No soft tissue ab normality. IMPRESSION: Mild degenerative joint disease. No acute osseous abnormality. at 0543 Reported and signed by: Thad Infante MD CC: Dioni Benson MD; Ari Heaton Technologist: RT VICK Trnscrd Date/Time/By: 07/28/2019 (0532) : By: [email or web address] Orig Print D/T: S: 07/28/2019 (9068) PAGE 1 Signed Report - XR HIP W/PEL UNI 2+V [id number] 05:41:00 FAX: Dioni Benson [phone] [place]: B St: REG FAX: Y Ari Heaton [phone] Name: LAKEISHA GIL [facility] : 1945 Age/S: 73/F [address] Unit #: [id number] Loc: [place] [address] Phys: Dioni Benson MD Acct: [id number] Dis Date: Status: REG ER PHONE #: [phone] Exam Date: 07/28/2019528 FAX #: [phone] Reason: pain s/p fall EXAMS: CPT CODE: [id number] XR HIP W/PEL UNI 2+[place] [address]103 R16 EXAM: - XR HIP W/PEL UNI [...] VICK Trnscrd Date/Time/By: 07/28/2019 (0541) : By: [email or web address] Orig Print D/T: S: 07/28/2019 (0572) PAGE 1 Signed Report - XR ANKLE 3 + V [id number] 05:41:00 FAX: Dioni Benson [phone] [place]: B St: REG FAX: Y Ari Heaton [phone] Name: LAKEISHA GIL [facility] : 1945 Age/S: 73/F [address] [facility] Unit #: [id number] Loc: [place] [address] Phys: Dioni Benson MD Acct: [id number] Dis Date: Status: REG ER PHONE #: [phone] Exam Date: 07/28/2019525 FAX #: [phone] Reason: ANKLE PAIN EXAMS: CPT CODE: [id number] XR ANKLE 3 + V RT 82005 R16 EXAM: - XR ANKLE 3 + V RT HISTORY: ANKLE PAIN COMPARISON: None FINDINGS: No acute fracture or dislocation. The joint spaces are preserved. No a ggressive osseous lesions. No soft tissue abnormality. IMPRESSI ON: No acute osseous abnormality. at 0541 Reported and signed by: Thad Infante MD CC: Dioni Benson MD; Ari Heaton Technologist: ALEXANDRA ESPINOSA, RT Trntnrd Date/Time/By: 07/28/2019 (0593) : By: [email or web address] O rig Print D/T: S: 07/28/2019 (0520) PAGE 1 Signed Report - XR PELVIS 3 + [id number] 13:17:00 FAX: Tavo Aguirre MD [phone] [place]: St: REG FAX: Ari Knowles [phone] Name: LAKEISHA GIL [facility] [place] : 1945 Age/S: 73/F [address] Unit #: [id number] Loc: [place] [address] Phys: Tavo Sewell MD Acct: [id number] Dis Date: Status: REG RCR PHONE #: [phone] Exam Date: 07/20/2019 1012 FAX #: Reason: INLET OUTLET EXAMS: CPT CODE: [id number] XR PELVIS 3 + V 48129 HISTORY: INLET OUTLET EXAM: AP, inlet, and [...] appear similar to the prior exam. Location: [facility] 20 at 1317 Reported and signed by: Arthur Hodgson MD CC: Tavo Sewell MD; Ari Heaton Technolog ist: RT Nellie(R) Trnscrd Date/Time/By : 07/20/2019 (1317) : By: [email or web address] Orig Print D/T: S: 07/20/2019 (132 0) PAGE 1 Signed Report - XR WRIST 3 + V [id number] 11:49:00 FAX: Tavo Aguirre MD [phone] [place]: St: REG FAX: Ari Knowles [phone] Name: LAKEISHA GIL [facility] [place] : 1945 Age/S: 73/F [address] Unit #: [id number] Loc: [place] [address] Phys: Tavo Sewell MD Acct: [id number] Dis Date: Status: REG RCR PHONE #: [phone] Exam Date: 07/20/2019 1012 FAX #: Reason: FRACTURE EXAMS: CPT CODE: [id number] XR WRIST 3 + V LT 12157 REASON FOR EXAM: FRACTURE EXAM ORDER DATE: 07/20/2019 9:54 AM Ordering MNell: Tavo Sewell MD PROC EDURE: - XR [...] and the carpal rows are intact. Location: [facility] at 1149 Reported and signed by: Arthur romero MD CC: Tavo Sewell MD; Ari Heaton Technologist: RT Nellie(R) Trnscrd Da te/Time/By: 07/20/2019 (0607) : By: [email or web address] Orig Print D/T: S: 07/20 (2603) PAGE 1 Signed Report Blood leukocytes automated count (number/volume) 2019-07-06 09:18:00* Test Item Value Reference Range Interpretation Comments White Blood Count (test code = 6690-2) 7.44 4.8-10.8 [facility] automated count (number/volume)2019-07-06 09:18:00* Test Item Value Reference Range Interpretation Comments Red Blood Count (test code = 789-8) 4.09 3.6-5.1 [facility] Northwest[facility] erythrocyte mean corpuscular jejued6179-45-90 09:18:00* Test Item Value Reference Range Interpretation Comments Mean Corpuscular Volume (test code = 787-2) 94.4 81-99 [facility] erythrocyte mean corpuscular hemoglobin (mass per erythrocyte)2019-07-06 09:18:00* Test Item Value Reference Range Interpretation Comments Mean Corpuscular Hemoglobin (test code = 785-6) 29.8 28-32 [facility] erythrocyte mean corpuscular hemoglobin concentration measurement (mass/volume)2019-07-06 09:18:00* Test Item Value Reference Range Interpretation Comments Mean Corpuscular Hemoglobin Concent (test code = 786-4) 31.6 31-35 [facility] NorthwestRDW XciUv-Nph9937-12-14 09:18:00* Test Item Value Reference Range Interpretation Comments Red Cell Distribution Width (test code = 88266-6) 14.0 11.7 -14.4 [facility] blood platelet count (count/volume)2019-07-06 09:18:00* Test Item Value Reference Range Interpretation Comments Platelet Count (test code = 777-3) 249 140-360 [facility] blood segmented neutrophil count as percentage of total edwombidzl0052-64-03 09:18:00* Test Item Value Reference Range Interpretation Comments Neutrophils (%) (Auto) (test code = 66618-7) 68.6 38.7-80.0 [facility] blood lymphocyte count as percentage ot total piabimetpf4942-67-16 09:18:00* Test Item Value Reference Range Interpretation Comments Lymphocytes (%) (Auto) (test code = 736-9) 18.4 18.0-39.1 [facility]Autom[facility] blood monocyte count as percentage of total pnpcmdxbnq0136-68-56 09:18:00* Test Item Value Reference Range Interpretation Comments Monocytes (%) (Auto) (test code = 5905-5) 9.4 4.4-11.3 [facility] blood eosinophil count as percentage of total qlmjwdsgvg7795-76-91 09:18:00* Test Item Value Reference Range Interpretation Comments Eosinophils (%) (Auto) (test code = 713-8) 2.8 0.0-6.0 [facility] blood basophil count as percentage of total qsgwokwsag2375-87-68 09:18:00* Test Item Value Reference Range Interpretation Comments Basophils (%) (Auto) (test code = 706-2) 0.4 0.0-1.0 [facility] NorthwestFluoroscopic procedure less than one hour cyxnhmsz3340-04-37 09:18:00* Test Item Value Reference Range Interpretation Comments IM GRANULOCYTES % (test code = IM GRANULOCYTES %) 0.4 0.0- 1.0 [facility] blood neutrophil count 2019-07-06 09:18:00* Test Item Value Reference Range Interpretation Comments Neutrophils # (Auto) (test code = 751-8) 5.1 2.1-6.9 [facility]Blood lymphocytes count (number/volume) 2019-07-06 09:18:00* Test Item Value Reference Range Interpretation Comments Lymphocytes # (Auto) (test code = 93348-4) 1.4 1.0-3.2 [facility] count (number/volume)2019-07-06 09:18:00* Test Item Value Reference Range Interpretation Comments Monocytes # (Auto) (test code = 742-7) 0.7 0.2-0.8 [facility] blood eosinophil count 2019-07-06 09:18:00* Test Item Value Reference Range Interpretation Comments Eosinophils # (Auto) (test code = 711-2) 0.2 0.0-0.4 [facility] blood basophil count (count/volume)2019-07-06 09:18:00* Test Item Value Reference Range Interpretation Comments Basophils # (Auto) (test code = 704-7) 0.0 0.0-0.1 [facility] NorthwestFluoroscopic procedure less than one hour pymqknwn4568-48-86 09:18:00* Test Item Value Reference Range Interpretation Comments Absolute Immature Granulocyte (auto (sherly t code = Absolute Immature Granulocyte (auto) 0.03 0-0.1 [facility] leukocytes automated count (number/volume)2019-07-06 09:18:00* Test Item Value Reference Range Interpretation Comments White Blood Count (test code = 6690-2) 7.44 4.8-10.8 [facility] erythrocytes automated count (number/volume)2019-07-06 09:18:00* Test Item Value Reference Range Interpretation Comments Red Blood Count (test code = 789-8) 4.09 3.6-5.1 [facility]Autom[facility] erythrocyte mean corpuscular phozyo3892-96-38 09:18:00* Test Item Value Reference Range Interpretation Comments Mean Corpuscular Volume (test code = 787-2) 94.4 81-99 [facility]Autom[facility] erythrocyte mean corpuscular hemoglobin (mass per erythrocyte)2019-07-06 09:18:00* Test Item Value Reference Range Interpretation Comments Mean Corpuscular Hemoglobin (test code = 785-6) 29.8 28-32 [facility]Automated erythrocyte mean corpuscular hemoglobin concentration measurement (mass/volume)2019-07-06 09:18:00* Test Item Value Reference Range Interpretation Comments Mean Corpuscular Hemoglobin Concent (test code = 786-4) 31.6 31-35 [facility] NorthwestRDW SjmNh-Klg6736-78-14 09:18:00* Test Item Value Reference Range Interpretation Comments Red Cell Distribution Width (test code = 76169-7) 14.0 11.7 -14.4 [facility]Autom[facility] blood platelet count (count/volume)2019-07-06 09:18:00* Test Item Value Reference Range Interpretation Comments Platelet Count (test code = 777-3) 249 140-360 [facility] NorthwestAutomated blood segmented neutrophil count as percentage of total wptesnzqzd9257-37-68 09:18:00* Test Item Value Reference Range Interpretation Comments Neutrophils (%) (Auto) (test code = 73670-5) 68.6 38.7-80.0 [facility] NorthwestAutom[facility] blood lymphocyte count as percentage ot total ypvnjppnja7336-36-35 09:18:00* Test Item Value Reference Range Interpretation Comments Lymphocytes (%) (Auto) (test code = 736-9) 18.4 18.0-39.1 [facility]Autom[facility] blood monocyte count as percentage of total tblzwgydsg7607-83-55 09:18:00* Test Item Value Reference Range Interpretation Comments Monocytes (%) (Auto) (test code = 5905-5) 9.4 4.4-11.3 [facility]Autom[facility] blood eosinophil count as percentage of total mutgweowzb5403-65-54 09:18:00* Test Item Value Reference Range Interpretation Comments Eosinophils (%) (Auto) (test code = 713-8) 2.8 0.0-6.0 [facility]Autom[facility] blood basophil count as percentage of total gsgpkluamx6180-69-19 09:18:00* Test Item Value Reference Range Interpretation Comments Basophils (%) (Auto) (test code = 706-2) 0.4 0.0-1.0 [facility] NorthwestFluoroscopic procedure less than one hour ldrivplu5344-41-23 09:18:00* Test Item Value Reference Range Interpretation Comments IM GRANULOCYTES % (test code = IM GRANULOCYTES %) 0.4 0.0- 1.0 [facility] blood neutrophil count 2019-07-06 09:18:00* Test Item Value Reference Range Interpretation Comments Neutrophils # (Auto) (test code = 751-8) 5.1 2.1-6.9 [facility] NorthwestBlood lymphocytes count (number/volume) 2019-07-06 09:18:00* Test Item Value Reference Range Interpretation Comments Lymphocytes # (Auto) (test code = 55253-8) 1.4 1.0-3.2 [facility] NorthwestBlood monocytes automated count (number/volume)2019-07-06 09:18:00* Test Item Value Reference Range Interpretation Comments Monocytes # (Auto) (test code = 742-7) 0.7 0.2-0.8 [facility] NorthwestAutom[facility] blood eosinophil count 2019-07-06 09:18:00* Test Item Value Reference Range Interpretation Comments Eosinophils # (Auto) (test code = 711-2) 0.2 0.0-0.4 [facility] NorthwestAutomated blood basophil count (count/volume)2019-07-06 09:18:00* Test Item Value Reference Range Interpretation Comments Basophils # (Auto) (test code = 704-7) 0.0 0.0-0.1 [facility] NorthwestFluoroscopic procedure less than one hour oovcpgtm9062-65-49 09:18:00* Test Item Value Reference Range Interpretation Comments Absolute Immature Granulocyte (auto (sherly t code = Absolute Immature Granulocyte (auto) 0.03 0-0.1 [facility]COMPRE[facility] JYRAX5751-93-43 07:17:00* Test Item Value Reference Range Interpretation [...] reference range due to change in reagent. AUTFZE6842-87-73 07:17:00* Test Item Value Reference Range Interpretation Comments LIPASE (test code = LIP) 136 U/L 73.0-393.0 N COMPREHENSIVE METABOLIC VSRLZ3965-93-87 07:12:00* Test Item Value Reference Range Interpretation [...] TOTAL (test code = ALKP) IUnit/L 45-117 RBDQEV0885-21-39 07:12:00* Test Item Value Reference Range Interpretation Comments LIPASE (test code = LIP) U/L 73.0-393.0 CBC W/AUTO YTKW1888-23-08 07:09:00* Test Item Value Reference Range Interpretation [...] (test code = MDIFF) NO CBC W/AUTO [id number] 07:06:00* Test Item Value Reference Range Interpretation [...] (test code = BA#) K/mm3 0.0-0.2 URINALYSIS ALFCNRXM6789-00-05 05:16:00* Test Item Value Reference Range Interpretation [...] FEW #/LPF FEW Urine Source? Clean CatchURINALYSIS GTJNWNLG5555-97-97 05:11:00* Test Item Value Reference Range Interpretation [...] Clean Catch- XR ANKLE 3 + V [id number] 04:36:00 FAX: Ari Knowles [phone] [place]: St: REG FAX: Angelica Garcia [phone] Name: LAKEISHA GIL [facility] : 1945 Age/S: 73/F [address] [facility] Unit #: [id number] Loc: [place] [address] Phys: Angelica Patterson MD Acct: [id number] Dis Date: Status: REG ER PHONE #: [phone] Exam Date: 06/08/2019 042 FAX #: [phone] Reason: fall EXAMS: CPT CODE: [id number] XR ANKLE 3 + [place] [address] DICTATION LOCATION: 8 HISTORY: Female, 73 years of age with [...] Date/Time/By: 06/08/2019 (0436) : By: DanielCLW Orig Print D/T: S: 06/08/2019 (0437) PAGE 1 Signed Report - XR TIBIA/FIBULA 2 V [id number] 04:36:00 FAX: Darnell Ari Heaton Jarred [phone] [place]: St: REG FAX: Angelica Garcia [phone] Name: LAKEISHA GIL [facility] : 1945 Age/S: 73/F [address] [facility] Unit #: [id number] Loc: [place] [address] Phys: Angelica Patterson MD Acct: [id number] Dis Date: Status: REG ER PHONE #: [phone] Exam Date: 06/08/2019 0421 FAX #: [phone] Reason: fall EXAMS: CPT CODE: [id number] XR TIBIA/[place] [address] DICTATION LOCATION: [facility] HISTORY: Female, 73 years of age with [...] Caal Trnscrd Date/Time/By: 06/08/2019 (0436) : By: GhislaineW Orig Print D/T: S: 06/08/2019 (6549) PAGE 1 Signed Report - XR PELVIS 1/2 [id number] 04:31:00 FAX: Ari Knowles [phone] [place]: St: REG FAX: Angelica Garcia [phone] Name: LAKEISHA GIL [facility] : 1945 Age/S: 73/F [address] [facility] Unit #: [id number] Loc: [place] [address] Phys: Angelica Patterson MD Acct: [id number] Dis Date: Status: REG ER PHONE #: [phone] Exam Date: 06/08/2019 0421 FAX #: [phone] Reason: fall EXAMS: CPT CODE: [id number] XR PELVIS 1/2 VIEWS 45670 DICTATION LOCATION: 8 HISTORY: Female, 73 years of age with [...] 06/08 at 0431 Reported and signed by: Pruvi Rosas MD CC: Ari Heaton; Angelica Patterson MD T echnologist: Sarah Caal Trnscrd Date /Time/By: 06/08/2019 (430) : By: DanielCLW Orig Print D/T: S: 019 (4171) PAGE 1 Signed Report - XR CHEST 1 [id number] 04:26:00 FAX: Ari Knowles [phone] [place]: St: REG FAX: Angelica Garcia [phone] Name: LAKEISHA GIL [facility] : 1945 Age/S: 73/F [address] [facility] Unit #: [id number] Loc: [place] [address] Phys: Angelica Patterson MD Acct: [id number] Dis Date: Status: REG ER PHONE #: [phone] Exam Date: 06/08/2019 042 FAX #: [phone] Reason: fall EXAMS: CPT CODE: [id number] XR CHEST 1 V 58357 AFTER HOURS SERVICE ON: 06/08/2019 4:25 AM AP Portable Chest Location Code M12 HISTORY: fall FINDINGS: Study is limited due to shallow inspiration and ro tation. There is mild pulmonary vascular congestion. There are no pleura l effusions. There is no pneumothorax. Cardiac silhouette and mediastinum appear within normal limits. IMPRESSION: Mild pulmonary vascular congestion. at 8229 Reported and signed by: Julio Bates M.D. CC: Ari Heaton Jessica D MD Technologist: Sarah Caal Trnscrd Date/Time/By: 06/08/2019 (042) : By: [email or web address] Orig Print D/T: S: (0423) PAGE 1 Signed Rep ort - CT C-SPINE W/O [id number] 04:19:00 Name: LAKEISHA GIL [facility] : 1945 Age/S: 73 / F [address] [facility] Unit #: [id number] Loc: [place] [address] Phys: Carlos Patterson MD Acct: [id number] Di s Date: Status: REG ER PHONE #: Exam Date: 06/08/2019401 FAX #: Reason: fall EXAMS: CPT CODE: [id number] CT C-SPINE W/O CONTRAST 95942 DICTATION LOCATION: H48 HISTORY: Female, 73 years [...] MD CC: Ari Heaton; Angelica Patterson MD Technologist:ALIYA HARRIS CT CTDI: DLP: Trnscb Date/Time: 06/08/2019 (418) t.SDR.CLW Orig Print D/T: S: 06/08/2019 (421) PAGE 1 Signed Report - CT HEAD/BRAIN W/O [id number] 04:05:00 Name: LAKEISHA GIL [facility] : 1945 Age/S: 73 / F [address] [facility] Unit #: [id number] Loc: [place] [address] Phys: Carlos Patterson MD Acct: [id number] Di s Date: Status: REG ER PHONE #: Exam Date: 06/08/2019 0402 FAX #: [phone] Reason: fall EXAMS: CPT CODE: [id number] CT HEAD/BRAIN W/O CONT 16345 AFTER HOURS SERVICE ON: 1 08/09/2018 4:[address] Scan of the Brain Without Contrast Location Code M12 History: fall Technique: Scans were performed on a helical [...] signed by: Julio Bates M.D. CC: Ari Heaton Jessica D MD Technologist:ALIYA ZARATE CTDI: DLP: Trnscb Date/Time: 06/08/2019 (404) t.SDR.MA50 Orig Print D/T: S: 06/08/2019 (407) PAGE 1 Signed Report - CT C-SPINE W/O CONTRAST 2019-06-06 03:34:00 Name: LAKEISHA GIL [facility] : 1945 Age/S: 73 / F [address] [facility] Unit #: [id number] Loc: [place] [address] Phys: Raad Smith MD Acct: [id number] Dis Date: Status: REG ER PHONE #: [phone] Exam Date: 06/06/2019 030 FAX #: [phone] Reason: trauma EXAMS: CPT CODE: [id number] CT C-SPINE W/O CONTRAST 25935 DICTATION LOCATION: H48 HISTORY: Female, 73 years [...] There is mild central canal stenosis. C3-4 level: There is moderate bilateral foraminal stenosis. C4-5 level: No significant abnormality. C5-6 level: No significant abnormality. C6-7 level: No significant abnormality. C7-T1 level: No significant abnormality. IMPRESSION: 1. No acute fracture or subluxation in the cervical spine. 2. Degenerative changes and postoperative changes as described. at 0334 Reported and signed by: Purvi Rosas MD CC: Ari Heaton; Raad Smith MD Technologist:HUSSAIN GARCIA RT(R),CT CTDI: DLP: Trnscb Date/Time: 06/06/2019 (333) t.SDR.CLW Orig Print D/T: S: 06/06/2019 (033) PAGE 1 Signed Report - CT HEAD/BRAIN W/O CONT 2019-06-06 03:26:00 Name: LAKEISHA GIL [facility] : 1945 Age/S: 73 / F [address] [facility] Unit #: [id number] Loc: [place] [address] Phys: Raad Smith MD Acct: [id number] Dis Date: Status: REG ER PHONE #: [phone] Exam Date: 06/06/2019 0309 FAX #: [phone] Reason: trauma EXAMS: CPT CODE: [id number] CT HEAD/BRAIN W/O CONT 09114 DICTATION LOCATION: [facility] HISTORY: Female, 73 years of age with [...] significant scalp hematoma. There is no acute intra- axial or extra-axial hemorrhage, mass, mass effect or [...] mass. 2. Age-related atrophy and chronic small vessel ischemic injuries. at 0326 Reported and signed by: Purvi Rosas MD CC: Ari Heaton; Raad Smith MD Technologist:HUSSAIN GARCIA RT(R),CT CTDI: DLP: Trnscb Date/Time: 06/06/2019 (325) t.SDR.CLW Orig Print D/T: S: 06/06/2019 (6747) PAGE 1 Signed Report - XR PELVIS 3 + [id number] 11:34:00 FAX: Tavo Aguirre MD [phone] [place]: St: REG FAX: Ari Knowles [phone] Name: GILLAKEISHA MADHU [facility] [place] : 1945 Age/S: 73/F [address] Unit #: [id number] Loc: [place] [address] Phys: Tvao Sewell MD Acct: [id number] Dis Date: Status: REG RCR PHONE #: [phone] Exam Date: 06/03/2019 1114 FAX #: Reason: fall EXAMS: CPT CODE: [id number] XR PELVIS 3 + V 98140 HISTORY: fall EXAM: AP, inlet, and outlet views of the pelvis Comparison: CT of the abdomen and pelvis May 17, 2019 FINDINGS: No acute fracture of the bony pelvis is seen. There are degenerative changes in both hips with right-sided acetabular protrusion. Fusion hardware is present in the lumbar spine but incompletely visualized. Visualized hardware demonstrates no loosening. No widening of the sacroiliac joints or pubic symphysis. Pulse generator projects over the left lower abdominal wall. IMPRESSION: Degenerative changes in the hips with the right sided sarah tabular protrusion but no fracture is evident. Location: [facility] at 1134 Reported and signed by: Arthur Hodgson MD CC: Tavo Bray MD; Ari Heaton Technologist: Raad Aguilar RT(R) Trnscrd Date/Time/By: 06/03/2019 (6611) : By: [email or web address] Orig Print D/T: S: 06/03/2019 (5457) PAGE 1 Signed Report BASIC METABOLIC [id number] 07:43:00* Test Item Value Reference Range Interpretation [...] CA) 8.9 mg/dL 8.5-10.1 N BASIC METABOLIC [id number] 07:32:00* Test Item Value Reference Range Interpretation [...] code = CA) mg/dL 8.5-10.1 CBC W/AUTO [id number] 07:13:00* Test Item Value Reference Range Interpretation [...] NRBC#) 0.00 K/mm3 0.0-0.1 N CBC W/AUTO [id number] 07:11:00* Test Item Value Reference Range Interpretation [...] # (test code = BA#) K/mm3 0.0-0.2 [id number] 12:42:00* Test Item Value Reference Range Interpretation Comments TROPONIN-I (test code = TROPI) <0.015 ng/mL 0-0.045 N COMMENTS TO CELL BIOLOGY SCIENTIST: COLLECT 3 HOURS AFTER PREVIOUS [id number] 08:59:00* Test Item Value Reference Range Interpretation Comments TROPONIN-I (test code = TROPI) <0.015 ng/mL 0-0.045 N COMMENTS TO CELL BIOLOGY SCIENTIST: COLLECT 3 HOURS AFTER PREVIOUS SAMPLEURINALYSIS [id number] 04:23:00* Test Item Value Reference Range Interpretation [...] #/LPF NONE Urine Source? Clean CatchBASIC METABOLIC [id number] 00:13:00* Test Item Value Reference Range Interpretation [...] CA) 8.5 mg/dL 8.5-10.1 N HEPATIC FUNCTION [id number] 00:13:00* Test Item Value Reference Range Interpretation [...] reference range due to change in reagent. [id number] 00:13:00* Test Item Value Reference Range Interpretation Comments LIPASE (test code = LIP) 194 U/L 73.0-393.0 N [id number] 00:13:00* Test Item Value Reference Range Interpretation Comments TROPONIN-I (test code = TROPI) <0.015 ng/mL 0-0.045 N BASIC METABOLIC [id number] 00:00:00* Test Item Value Reference Range Interpretation [...] CA) 8.5 mg/dL 8.5-10.1 N HEPATIC FUNCTION [id number] 00:00:00* Test Item Value Reference Range Interpretation [...] reference range due to change in reagent. [id number] 00:00:00* Test Item Value Reference Range Interpretation Comments LIPASE (test code = LIP) 194 U/L 73.0-393.0 N [id number] 00:00:00* Test Item Value Reference Range Interpretation Comments TROPONIN-I (test code = TROPI) <0.015 ng/mL 0-0.045 N - CT CHEST W/[id number] 00:00:00 Name: LAKEISHA GIL [facility] : 1945 Age/S: 73 / F [address] [facility] Unit #: [id number] Loc: [place] [address] Phys: Juan R Ceuvas MD Acct: [id number] Dis Date: Status: REG ER PHONE #: [phone] Exam Date: 05/24/2019 2330 FAX #: [phone] Reason: severe cp, questionable syncope EXAMS: CPT CODE: [id number] CT CHEST W/CONTRAST 14598 EXAM: CTA thoracic aorta with IV contrast [...] axis There is no cardiac chamber enlargement Airways/Pleura/Lungs: Bibasilar atelectasis is evaluation. There are nonspecific small peripheral nodular consolidations seen within the right lower lobe which can be followed up in 1 month Bones and Soft tissues: Postsurgical changes of the lower thoracic spine are noted. Abdomen: The liver, spleen, kidneys, adrenals, and pancreas are unremarkable. The gallbladder is surgically absent.. No bowel obstruction is seen. No ascites or pneumoperitoneum IMPRESSION: 1. No evidence of aortic aneurysm or dissection 2. There are nonspecific small peripheral nodular consolidations seen PAGE 1 Signed Report (CONTINUED) Name: LAKEISHA GIL [facility] : 1945 Age/S: 73 / F [address] [facility] [id number] Loc: [place] [address] Phys: Juan R Cuevas MD Acct: [id number] Dis Date: Status: REG ER PHONE #: [phone] Exam Date: 05/24/2019 2330 FAX #: [phone] Reason: severe cp, questionable sy ncope EXAMS: C PT CODE: [id number] CT CHEST W/CONTRAST 96286 <Continued> within the right lower lobe which [...] 2 Signed Report - XR L-SPINE 2/3 [id number] 23:57:00 FAX: Juan R Cuevas MD [place]: St: REG FAX: Ari Knowles [phone] Name: LAKEISHA GIL [facility] : 1945 Age/S: 73/F [address] Unit #: [id number] Loc: [place] [address] Phys: Juan R Cuevas MD Acct: [id number] Dis Date: Status: REG ER PHONE #: [phone] Exam Date: 05/24/2019 2352 FAX #: [phone] Reason: BACK PAIN EXAMS: CPT CODE: [id number] XR L-SPINE 2/3 VIEWS 63624 EXAM: - XR T-SPINE 3 VIEWS, - XR L-SPINE 2/3 VIEWS HISTORY: BACK PAIN Location code:C3 COMPARISON: 05/17/2019 FINDINGS: AP, lateral, and swimmers lateral view of the thoracic spine is provided. 2 AP and one lateral view of the lumbar spine are provided. Extensive thoracolumbar orthopedic hardware is again seen with spinal stimulator device and cholecystectomy clips. Visualized hardware appears intact and fully engaged. The exam is limited by patient's body habitus and extensive hardware. Vertebral bodies are not well seen and compression fracture would be difficult to exclude. Multilevel degenerative features are present. IMPRESSION: 1. Li bisid exam as above. at 9590 Reported and signed by: Eloy Encarnacion M.D. CC: Juan R Cuevas MD; Ari Heaton Technologist: Sarah Caal Trnscrd Date/Time/By: 1 07/25/2018 (8457) : By: [email or web address] Orig Print D/T: S: 05/25/2019 (0000) PAGE 1 Signed Report - XR T-SPINE 3 [id number] 23:57:00 FAX: Juan R Cuevas MD [place]: B St: REG FAX: Y Ari [place] [phone] Name: LAKEISHA GLI [facility] : 1945 Age/S: 73/F [address] Unit #: [id number] Loc: [place] [address] Phys: Juan R Cuevas MD Acct: [id number] Dis Date: Status: REG ER PHONE #: [phone] Exam Date: 05/24/20192351 FAX #: [phone] Reason: BACK PAIN EXAMS: CPT CODE: [id number] XR T-SPINE 3 VIEWS 88627 EXAM: - XR T-SPINE 3 VIEWS, - [...] 1. Li mited exam as above. at 6137 Reported and signed by: Eloy Encarnacion M.D. CC: Juan R Cuevas MD; Ari [place] Technologist: Sarah Caal Trntnrd Date/Time/By: 1 07/25/2018 (7413) : By: [email or web address] Orig Print D/T: S: 05/25/2019 (0000) PAGE 1 Signed Report - CT C-SPINE W/O [id number] 23:50:00 Name: LAKEISHA GIL [facility] : 1945 Age/S: 73 / F [address] Unit #: [id number] Loc: [place] [address] Phys: Haseeb Cuevas MD Acct: [id number] Di s Date: Status: REG ER PHONE #: Exam Date: 05/24/2019 2320 FAX #: Reason: Neck Pain EXAMS: CPT CODE: [id number] CT C-SPINE W/O CONTRAST 29943 CT of the brain without c ontrast [...] of the ventricles and sulci consistent with moderate supratentorial cerebral volume loss. The basilar [...] Signed Rep ort (CONTINUED) Name: LAKEISHA GIL [facility] : 1945 Age/S: 73 / F [address] Unit #: [id number] Loc: [place] [address] Phys: Juan R Cuevas MD Acct: [id number] Dis Date: Status: REG ER PHONE #: [phone] Exam Date: 05/24/2019 2320 FAX #: [phone] Reason: Neck Pain EXAMS: CPT CODE: [id number] CT C-SPINE W/O CONTRAST 82278 <Continued> No evidence of acute osseous cervical fracture or traumatic subluxation Additional findings as above. at 2350 Reported and signed by: Estrella Ching M.D. CC: Juan R Cuevas MD; Ari [place] Technologist:ALEXANDRA ESPINOSA RT; ALIYA MOREL CTDI: DLP: Trnscb Date/Time: 05/24/2019 (2349) [email or web address] Orig Print D/T: S: 05/24/2019 (9333) PAGE 2 Signed Report - CT HEAD/BRAIN W/O [id number] 23:50:00 Name: LAKEISHA GIL [facility] : 1945 Age/S: 73 / F [address] [facility] Unit #: [id number] Loc: [place] [address] Phys: Haseeb Cuevas MD Acct: [id number] Di s Date: Status: REG ER PHONE #: [phone] Exam Date: 05/24/2019 2310 FAX #: [phone] Reason: HEADACHE EXAMS: CPT CODE: [id number] CT HEAD/BRAIN W/O CONT 63397 CT of the brain without c ontrast [...] of the ventricles and sulci consistent with moderate supratentorial cerebral volume loss. The basilar [...] Signed Rep ort (CONTINUED) Name: LAKEISHA GIL [facility] : 1945 Age/S: 73 / F [address] [facility] Unit #: [id number] Loc: [place] [address] Phys: Juan R Cuevas MD Acct: [id number] Dis Date: Status: REG ER PHONE #: [phone] Exam Date: 05/24/2019 2310 FAX #: [phone] Reason: HEADACHE EXAMS: CPT CODE: [id number] CT HEAD/BRAIN W/O CONT 13323 <Continued> No evidence of acute osseous cervical fracture or traumatic subluxation Additional findings as above. at 2350 Reported and signed by: Estrella Ching M.D. CC: Juan R Cuevas MD; Ari [place] Technologist:ALEXANDRA ESPINOSA, RT; ALIYA AT CTDI: DLP: Trnscb Date/Time: 05/24/2019 (2231) [email or web address] Orig Print D/T: S: 05/24/2019 (2019) PAGE 2 Signed Report BASIC METABOLIC [id number] 23:48:00* Test Item Value Reference Range Interpretation [...] code = CA) mg/dL 8.5-10.1 HEPATIC FUNCTION [id number] 23:48:00* Test Item Value Reference Range Interpretation [...] TOTAL (test code = ALKP) IUnit/L 45-117 [id number] 23:48:00* Test Item Value Reference Range Interpretation Comments LIPASE (test code = LIP) U/L 73.0-393.0 [id number] 23:48:00* Test Item Value Reference Range Interpretation Comments TROPONIN-I (test code = TROPI) ng/mL 0-0.045 PROTHROMBIN [id number] 23:32:00* Test Item Value Reference Range Interpretation [...] (2.5-3.5) IS PATIENT ON ANTICOAGULANTS? NTHROMBOPLASTIN TIME [id number] 23:32:00* Test Item Value Reference Range Interpretation Comments THROMBOPLASTIN TIME PARTIAL (test code = PTT) 31.4 seconds 25.0-36. 5 N IS PATIENT ON ANTICOAGULANTS? NCBC W/O [id number] 23:20:00* Test Item Value Reference Range Interpretation [...] code = MPV) fL 6.7-11.0 CBC W/O [id number] 23:20:00* Test Item Value Reference Range Interpretation [...] fL 6.7-11.0 N - CT L-SPINE W/O [id number] 05:23:00 Name: LAKEISHA GIL [facility] : 1945 Age/S: 73 / F [address] [facility] Unit #: [id number] Loc: [place] [address] Phys: Gonsalo Garcia MD Acct: [id number] Dis Date: Status: REG ER PHONE #: [phone] Exam Date: 05/17/2019 050 FAX #: [phone] Reason: Fall, pain EXAMS: CPT CODE: [id number] CT L-SPINE W/O CONTRAST 12426 Location: T 18 CT thoracic and lumbar [...] 1 Signed Report (CONTINUED) Name: LAKEISHA GIL [facility] : 1945 Age/S: 73 / F [address] [facility] Unit #: [id number] Loc: [place] [address] Phys: Gonsalo Garcia MD Acct: [id number] Dis Date: Status: REG ER PHONE #: [phone] Exam Date: 05/17/2019 0502 FAX #: [phone] Reason: Fall, pain EXAMS: CPT CODE: [id number] CT L-SPINE W/O CONTRAST 08078 < Continued> Bilateral sacral insufficiency type fractures [...] M.D. CC: Ari [place] Evan MD Technologist:ALIYA HARRIS CT CTDI: DLP: Trnscb Date/Time: 05/17/2019 (05) [email or web address] Orig Print D/T: S: 05/17/2019 (01) PAGE 2 Signed Report - CT T-SPINE W/O [id number] 05:23:00 Name: LAKEISHA GIL [facility] : 1945 Age/S: 73 / F [address] Unit #: [id number] Loc: [place] [address] Phys: Gonsalo Garcia MD Acct: [id number] Dis Date: Status: REG ER PHONE #: [phone] Exam Date: 05/17/2019 050 FAX #: [phone] Reason: Fall, pain EXAMS: CPT CODE: [id number] CT T-SPINE W/O CONTRAST 29842 Location: T 18 CT thoracic and lumbar [...] 1 Signed Report (CONTINUED) Name: LAKEISHA GIL [facility] : 1945 Age/S: 73 / F [address] Unit #: [id number] Loc: [place] [address] Phys: Gonsalo Garcia MD Acct: [id number] Dis Date: Status: REG ER PHONE #: [phone] Exam Date: 05/17/2019501 FAX #: [phone] Reason: Fall, pain EXAMS: CPT CODE: [id number] CT T-SPINE W/O CONTRAST 84836 < Continued> Bilateral sacral insufficiency type fractures [...] ZARATE CTDI: DLP: Trnscb Date/Time: 05/17/2019 (05) [email or web address] Orig Print D/T: S: 05/17/2019 (05) PAGE 2 Signed Report - CT PELVIS W/O [id number] 05:15:00 Name: LAKEISHA GIL [facility] : 1945 Age/S: 73 / F [address] Unit #: [id number] Loc: [place] [address] Phys: Ary Garcia MD Acct: [id number] Di s Date: Status: REG ER PHONE #: [phone] Exam Date: 05/17/2019501 FAX #: Reason: R/O occult pelvic/hip fracture, pain EXAMS: CPT CODE: [id number] CT PELVIS W/O CONTRAST 15722 Location: T 18 CT of the pelvis, [...] and sagittal reformatted images acquired. This was acquired on CT workstation using MPR software. The [...] Signed Report (CONTINUE D) Name: LAKEISHA GIL [facility] : 1945 Age/S: 73 / F [address] [facility] Unit #: [id number] Loc: [place] [address] Phys: Gonsalo Garcia MD Acct: [id number] Dis Date: Status: REG ER PHONE #: [phone] Exam Date: 05/17/2019 0502 FAX #: [phone] Reason: R/O occult pelvic/hip fracture, pain EXAMS: CPT CODE: [id number] CT PELVIS W/O CONTRAST 43107 <Continued> at 0515 Reported and signed by: Violeta Barron M.D. CC: Ari [place] Evan MD Technologist:ALIYA ZARATE CTDI: DLP: Trnscb Date/Time: 05/17/2019 (0515) [email or web address] Orig Print D/T: S: 05/17/2019 (0550) PAGE 2 Signed Report - XR SHOULDER 2 + V [id number] 03:50:00 FAX: Gonsalo Garcia MD [place]: St: REG Name: LAKEISHA MCKEON [facility] : [birth year] Age/S: 73/F [address] [facility] Unit #: [id number] Loc: [place] [address] Phys: Gonsalo Garcia MD Acct: [id number] Dis Date: Status: REG ER PHONE #: [phone] Exam Date: 05/17/2019325 FAX #: [phone] Reason: SHOULDER PAIN EXAMS: CPT CODE: [id number] XR SHOULDER 2 + [place] [address] Location: T 18 Left shoulder x-ray exam, [...] fracture with subtle lucency identified on image #2 of the right hip joint. Consideration of CT exam would be advised at 0350 Reported and signed by: Violeta Barron M.D. CC: Gonsalo Garcia MD Technologist: Sarah Caal Trnscrd Date/Time/By: 05/17/2019 (349) : By: [email or web address] Orig Print D/T: S: 05/17/2019 (5617) PAGE 1 Signed Report - XR HIP W/PEL UNI 2+V [id number] 03:50:00 FAX: Gonsalo Garcia MD [place]: St: REG Name: LAKEISHA MCKEON [facility] : [birth year] Age/S: 73/F [address] [facility] Unit #: [id number] Loc: [place] [address] Phys: Gonsalo Garcia MD Acct: [id number] Dis Date: Status: REG ER PHONE #: [phone] Exam Date: 05/17/2019325 FAX #: [phone] Reason: HIP PAIN EXAMS: CPT CODE: [id number] XR HIP W/PEL UNI 2+[place] [address] Location: T 18 Left shoulder x-ray exam, [...] fracture with subtle lucency identified on image #2 of the right hip joint. Consideration of CT exam would be advised at 0350 Reported and signed by: Violeta Barron M.D. CC: Gonsalo Garcia MD Technologist: Sarah Caal Trnscrd Date/Time/By: 05/17/2019 (0350) : By: [email or web address] Orig Print D/T: S: 05/17/2019 (0354) PAGE 1 Signed Report - XR KNEE 3 V LT 2019-05-17 03:38:00 FAX: Gonsalo Garcia MD [place]: St: REG Name: LAKEISHA MCKEON [facility] : [birth year] Age/S: 73/F [address] [facility] Unit #: [id number] Loc: [place] [address] Phys: Gonsalo Garcia MD Acct: [id number] Dis Date: Status: REG ER PHONE #: [phone] Exam Date: 05/17/2019325 FAX #: [phone] Reason: KNEE PAIN EXAMS: CPT CODE: [id number] XR KNEE 3 V LT [address] Location: [address] knee x-ray exam, 3 views of each knee conducted on 05/17/19 C LINICAL HISTORY: Trauma, fall, knee pain. Patient The patient is o steopenic. No definite fracture, subluxation or abnormal joint effusion at 0338 R eported and signed by: Violeta Barron M.D. CC: Gonsalo Garcia MD Technologist: Sarah Perry Date/Time/By: 05/17/2019 (0338) : By: [email or web address] Orig Print D/T: S: 05/17/2019 (3909) PAGE 1 Signed Report - XR KNEE 3 V [id number] 03:38:00 FAX: Gonsalo Garcia MD [place]: St: REG Name: LAKEISHA MCKEON [facility] : [birth year] Age/S: 73/F [address] [facility] Unit #: [id number] Loc: [place] [address] Phys: Gonsalo Garcia MD Acct: [id number] Dis Date: Status: REG ER PHONE #: [phone] Exam Date: 05/17/2019325 FAX #: [phone] Reason: KNEE PAIN EXAMS: CPT CODE: [id number] XR KNEE 3 [place] [address] Location: [address] knee x-ray exam, 3 views of each knee conducted on 05/17/19 C LINICAL HISTORY: Trauma, fall, knee pain. Patient The patient is o steopenic. No definite fracture, subluxation or abnormal joint effusion at 0338 R eported and signed by: Violeta Barron M.D. CC: Gonsalo Garcia MD Technologist: Sarah Caal Trnjohn Date/Time/By: 05/17/2019 (0338) : By: [email or web address] Orig Print D/T: S: 05/17/2019 (7596) PAGE 1 Signed Report - XR CHEST 1 [id number] 03:36:00 FAX: Gonsalo Garcia MD [place]: B St: REG Name: LAKEISHA MCKEON [facility] : [birth year] Age/S: 73/F [address] Unit #: [id number] Loc: [place], [place] [address] Phys: Gonsalo Garcia MD Acct: [id number] Dis Date: Status: REG ER PHONE #: [phone] Exam Date: 05/17/2019325 FAX #: [phone] Reason: CHEST PAIN EXAMS: CPT CODE: [id number] XR CHEST 1 V 54554 Location: T18 CHEST X-RAY: 05/17/19 CLINICAL HISTORY: [...] Technologist: St pio Caal Trnscrd Date/Time/By: 05/17 (033) : By: [email or web address] Orig Print D/T: S: 05/17/2019 (2919) PAGE 1 Signed Report PROTHROMBIN [id number] 03:29:00* Test Item Value Reference Range Interpretation [...] (2.5-3.5) IS PATIENT ON ANTICOAGULANTS? NTHROMBOPLASTIN TIME [id number] 03:29:00* Test Item Value Reference Range Interpretation Comments THROMBOPLASTIN TIME PARTIAL (test code = PTT) 34.2 seconds 25.0-36. 5 N IS PATIENT ON ANTICOAGULANTS? NBASIC METABOLIC [id number] 03:21:00* Test Item Value Reference Range Interpretation [...] mg/dL 8.5-10.1 N - CT HEAD/BRAIN W/O [id number] 03:15:00 [facility] 1945 Age[facility]S: 73 / F [address] [facility] Unit #: [id number] Loc: [place] [address] Phys: Gonsalo Garcia MD Acct: [id number] Dis Date: Status: REG ER PHONE #: [phone] Exam Date: 05/17/2019 030 FAX #: [phone] Reason: HEADACHE EXAMS: CPT CODE: [id number] CT HEAD/BRAIN W/O CONT 06533 EXAM: - CT HEAD/BRAIN W/O CONT HISTORY: Fall, headache. TECHNIQUE: Axial tomograms through the brain were obtained without intravenous contrast. This exam was performed according to our departmental dose-optimization program, which includes automated exposure control, adjustment of the mA and/or kV according to patient size and/or use of iterative reconstruction technique. COMPARISON: 04/23/2019. FINDINGS: There is no intracranial hemorrhage, mass, or mass effect. The ventricular system and sulci are age-appropriate. There is no evidence of acute infarction. The osseous structures and orbits, show no significant abnormalities. The visualized sinuses are relatively clear. The soft tissues are unremarkable. IMPRESSION: No acute intracranial abnormality with no evidence of intracranial hemorrhage. at 0315 Reported and signed by: Celestine Shaikh MD CC: Gonsalo Garcia MD Technologist:Robert Cain, RT(R)(CT) CTDI: DLP: Trnscb Date/Time: 05/17/2019 (314) [email or web address] Orig Print D/T: S: 05/17/2019 (317) PAGE 1 Signed Report - CT C-SPINE W/O [id number] 03:14:00 [facility] 1945 Age/S: 73 / F [address] Unit #: [id number] Loc: [place] [address] Phys: Gonsalo Garcia MD Acct: [id number] Dis Date: Status: REG ER PHONE #: [phone] Exam Date: 05/17/2019 0304 FAX #: [phone] Reason: Neck Pain EXAMS: CPT CODE: [id number] CT C-SPINE W/O CONTRAST 79024 Location: T 18 CT cervical spine, 05/17/19 [...] fusion masses solid incorporated from C6 to C7. Short radius dextroscoliosis in the cervical region multilevel spondylosis. The findings altogether appears similar to the prior exam. Assessment of the skull base unremarkable. Prevertebral soft tissues unremarkable. The atlano axial joint is unremarkable . No pneumothorax or rib fracture is seen IMPRESSION: No acute fracture or traumatic malalignment of the spinal lines Cervical spondylos is and postop changes. Findings appear similar to the prior CT exam of 04/23/19 at 0314 Reported and signed by: Violeta Barron M.D. PAGE 1 Signed Report (CONTINUED) Name: LAKEISHA GIL [facility] : 1945 Age/S: 73 / F [address] Unit #: [id number] Loc: [place] [address] Phys: Gonsalo Garcia MD Acct: [id number] Dis Date: Status: REG ER PHONE #: [phone] Exam Date: 05/17/2019303 FAX #: [phone] Reason: Neck Pain EXAMS: CPT CODE: [id number] CT C-SPINE W/O CONTRAST 70020 <Continued> CC: Gonsalo Garcia MD Technologist:Robert Cain, RT(R)(CT) CTDI: DLP: Trnscb Date/Time: 05/17/2019 (313) [email or web address] Orig Print D/T: S: 05/17/2019 (316) PAGE 2 Signed Report CBC W/O [id number] 03:12:00* Test Item Value Reference Range Interpretation [...] MPV) 10.0 fL 6.7-11.0 N CBC W/O [id number] 03:05:00* Test Item Value Reference Range Interpretation [...] MPV) fL 6.7-11.0 - CT ABD PELVIS [id number] 08:45:00 Name: LAKEISHA GIL [facility] : 1945 Age/S: 73 / F [address] [facility] Unit #: [id number] Loc: [place] [address] Phys: Grzegorz Dubon MD Acct: [id number] Dis Date: Status: REG ER PHONE #: [phone] Exam Date: 04/23/2019 0835 FAX #: [phone] Reason: L flank pain EXAMS: CPT CODE: [id number] CT ABD PELVIS W/CONT 95514 REASON FOR EXAM: L flank pain EXAM [...] the kidneys or ureters, no hydronephrosis or hydroureter, and no stranding of the perinephric or [...] S igned Report (CONTINUED) Name: LAKEISHA GIL [facility] : 1945 Age/S: 73 / F [address] Unit #: [id number] Loc: [place] [address] Phys: Grzegorz Dubon MD Acct: [id number] Dis Date: Status: REG ER PHONE #: [phone] Exam Date: 04/23/2019 0835 FAX #: [phone] Reason: L flank pain EXAMS: CPT CODE: [id number] CT ABD PELVIS W/CONT 07434 <Continued> Musculoskeletal structures and abdominal wall: There [...] cecum suggest constipation. Fat-containing umbilical hernia. Location: [facility] at 0845 Reported and signed by: Arthur Hodgson MD CC: Grzegorz Dubon MD Technologist:Raquel Kelly,RT(R),CT CTDI: DLP: Trnscb Date/Time: 04/23/2019 (0845) [email or web address] Orig Print D/T: S: 04/23/2019 (0848) PAGE 2 Signed Report - XR CHEST 1 [id number] 07:33:00 FAX: Grzegorz Dubon MD [phone] [place]: B St: REG Name: R ICHARDSON,LAKEISHA MADHU [facility] : [birth year] Age/S: 73/F [address] Unit #: [id number] Loc: [place] [address] Phys: Grzegorz Dubon MD Acct: [id number] Dis Date: Status: REG ER PHONE #: [phone] Exam Date: 04/23/2019 0652 FAX #: [phone] Reason: CHEST PAIN EXAMS: CPT CODE: [id number] XR CHEST 1 V 33834 HISTORY: CHEST PAIN TECHNIQUE: AP chest x-ray [...] By: [email or web address] Orig Print D/T: S: 04/23/2019 (0736) PAGE 1 Signed Report - XR T-SPINE 3 [id number] 07:31:00 FAX: Grzegorz Dubon MD [phone] [place]: B St: REG Name: LAKEISHA MCKEON [facility] : [birth year] Age/S: 73/F [address] Unit #: [id number] Loc: [place] [address] Phys: Grzegorz Dubon MD Acct: [id number] Dis Date: Status: REG ER PHONE #: [phone] Exam Date: 04/23/2019 0705 FAX #: [phone] Reason: BACK PAIN EXAMS: CPT CODE: [id number] XR T-SPINE 3 VIEWS 37849 HISTORY: BACK PAIN E XAM: AP and [...] Dubon MD Technologist: IGOR HUSAIN JR Trnscrd Silvio te/Time/By: 04/23/2019 (07) : By: [email or web address] Orig Print D/T: S: 04/23 (0734) PAGE 1 Signed Report - XR L-SPINE 2/3 [id number] 07:29:00 FAX: Grzegorz Dubon MD [phone] [place]: B St: REG Name: LAKEISHA MCKEON [facility] : [birth year] Age/S: 73/F [address] [facility] Unit #: [id number] Loc: [place] [address] Phys: Grzegorz Dubon MD Acct: [id number] Dis Date: Status: REG ER PHONE #: [phone] Exam Date: 04/23/2019 0710 FAX #: [phone] Reason: BACK PAIN EXAMS: CPT CODE: [id number] XR L-SPINE 2/3 VIEWS 62355 HISTORY: BACK PAIN T ECHNIQUE: AP and lateral views of the lumbar spine. Comparison 02/20/18. FINDINGS: Extensive thoracolumbar instrumentation and fusion. Lower thoracic stimulator. Vertebral body alignment is satisfactory. No ac anvik lumbar fracture is observed. Generalized osteopenia. IMPRESS ION: No acute lumbar fracture is observed. No significant elsa nge compared to 02/20/18. LOCATION: LP at 0729 Reported and signed by: Amanda Soler CC: Grzegorz Dubon MD Technologist: IGOR HUSAIN JR Trnscrd Jarred ate/Time/By: 04/23/2019 (0729) : By: [email or web address] Orig Print D/T: S: 06/2018 (0733) PAGE 1 Signed Repor t PROTHROMBIN [id number] 07:23:00* Test Item Value Reference Range Interpretation [...] (2.5-3.5) IS PATIENT ON ANTICOAGULANTS? NTHROMBOPLASTIN TIME [id number] 07:23:00* Test Item Value Reference Range Interpretation Comments THROMBOPLASTIN TIME PARTIAL (test code = PTT) 33.0 seconds 25.0-36. 5 N IS PATIENT ON ANTICOAGULANTS? NBASIC METABOLIC [id number] 07:11:00* Test Item Value Reference Range Interpretation [...] CA) 8.4 mg/dL 8.5-10.1 L HEPATIC FUNCTION [id number] 07:11:00* Test Item Value Reference Range Interpretation [...] reference range due to change in reagent. [id number] 07:11:00* Test Item Value Reference Range Interpretation Comments LIPASE (test code = LIP) 96 U/L 73.0-393.0 N [id number] 07:11:00* Test Item Value Reference Range Interpretation Comments TROPONIN-I (test code = TROPI) <0.015 ng/mL 0-0.045 N BASIC METABOLIC [id number] 07:04:00* Test Item Value Reference Range Interpretation [...] code = CA) mg/dL 8.5-10.1 HEPATIC FUNCTION [id number] 07:04:00* Test Item Value Reference Range Interpretation [...] TOTAL (test code = ALKP) IUnit/L 45-117 [id number] 07:04:00* Test Item Value Reference Range Interpretation Comments LIPASE (test code = LIP) U/L 73.0-393.0 CBC W/O [id number] 06:54:00* Test Item Value Reference Range Interpretation [...] fL 6.7-11.0 N - CT C-SPINE W/O [id number] 06:11:00 Name: LAKEISHA GIL [facility] : 1945 Age/S: 73 / F [address] [facility] Unit #: [id number] Loc: [place] [address] Phys: Grzegorz Dubon MD Acct: [id number] Dis Date: Status: REG ER PHONE #: [phone] Exam Date: 04/23/2019 0605 FAX #: [phone] Reason: Neck Pain EXAMS: CPT CODE: [id number] CT C-SPINE W/O CONTRAST 21976 AFTER HOURS SERVICE ON: 04/23/2019 6:09 AM [...] Multilevel foraminal stenoses are seen due to uncovertebral hypertrophy. Impression: No cervical spine fracture. at 0611 Reported and signed by: Julio Bates M.D. CC: Grzegorz Dubon MD Technologist:ALEXANDRA ESPINOSA RT CTDI: DLP: Trnscb Date/Time: 04/23/2019 (610) [email or web address] Orig Print D/T: S: 04/23/2019 (613) PAGE 1 Signed Report - CT HEAD/BRAIN W/O [id number] 06:08:00 Name: LAKEISHA GIL [facility] : 1945 Age/S: 73 / F [address] [facility] Unit #: [id number] Loc: [place], [place] [address] Phys: Vinh Dubon MD Acct: [id number] Di s Date: Status: REG ER PHONE #: Exam Date: 04/23/2019 0600 FAX #: Reason: HEADACHE EXAMS: CPT CODE: [id number] CT HEAD/BRAIN W/O CONT 51883 AFTER HOURS SERVICE ON: 06/23/2018 6:[address] Scan of the Brain Without Contrast Location Code M12 History: HEADACHE Technique: S cans were performed on a helical scanner pre IV contrast only. The study i s limited secondary to lack of intravenous contrast, particularly for eval uation of masses. One or more of the following dose reduction felix hniques were used: Automated exposure control, adjustment of the mA and/or kV according to patient size, and/or utilization of iterative reconstruct ion technique. Findings: There is no hydrocep halus. Basal cisterns are patent. There is no intracranial hyperdense hemo rrhage. There is no midline shift or mass effect. No effacement of the gra y-white matter junction to indicate acute infarction. There are chronic is chemic white matter changes. There is no skull fracture. I mpression: No acute intracranial CT findings. Senesce nt changes. at 0608 Reported and signed by: Julio Bates M.D. CC: Grzegorz Dubon MD Technologist:RT VICK CTDI: DLP: Trnscb Date/Time: 04/23/2019 (06) [email or web address] Orig Print D/T: S: 04/23/2019 (610) PAGE 1 Signed Report BONE DXA DUAL ENERGY 2018-11-02 15:58:00 [place] [address] Patient Name: LAKEISHA GIL MR #: [id number] : 1945 Age/Sex: 73/F Req #: [id number] Adm Physician: Ordered by: PATY MICHEL MD Report #: [id number] Location: CT Room/Bed: Procedure: 15 DX/BONE DXA [...] density: 0.531 gm/cm2, T-score is -2.9, Z-score is -1.0. * Total bone mineral density: 0.608 gm/cm2, T-score is -2.7, Z-score is -1.2. RIGHT FOREARM * Total bone mineral density (radius 33%): 0.546 gm/cm2, T-score is -2.4, Z-score is 0.1. IMPRESSION: 1. LEFT HIP: Bone mineralization by WHO Classification is osteoporosis, the fracture risk is high. 2. RIGHT FOREARM: Bone mineralization by WHO Classification is osteopenia, the fracture risk is moderate. <T score: NL = - 1 or higher Osteopenia = -1 to -2.5 Osteoporosis = -2.5 or lower Z score: < - 2 concerning for path> Signed by: Dr. Marito Liang M.D. on 11/02/2018 4:03 PM Dictated By: MARITO LIANG MD 160 Transcribed By: GEOFFREY on 11/02/18 1603 COPY TO: PATY MICHEL MD CT KNEE LEFT [id number] 10:21:00 [place] [address] Patient Name: LAKEISHA GIL MR #: [id number] : 1945 Age/Sex: 73/F Req #: [id number] Adm Physician: Ordered by: PATY MICHEL MD Report #: [id number] Location: CT Room/Bed: Procedure: CT/CT KNEE LEFT WO Exam Date: 11/02/18 Exam Time: 929 REPORT STATUS: Signed EXAM INATION: CT scan [...] TO: PATY MICHEL MD CT LUMBAR SPINE [id number] 12:49:00 [place] [address] Patient Name: LAKEISHA GIL MR #: [id number] : 1945 Age/Sex: 72/F Req #: [id number] Adm Physician: Ordered by: GEORGI DUNAWAY MD Report #: [id number] Location: DX Room/Bed: Procedure: [id number] CT/CT LUMBAR SPINE W Exam Date: 06/02/18 [...] cord and cauda equina are grossly unremarkable. No gross thecal sac filling defects are seen. [...] obscured by streak artifact. No gross canal or left foraminal stenosis. L1-L2: At least [...] on L5. The neural foramina are obscured by streak artifact. No gross canal stenosis. L5-S1: Grade 1 anterolisthesis of L5 on S1. The neural foramina are obscured by streak artifact. No gross c anal stenosis. Minimal atelectasis is seen in the lung bases. IMPRESS ION: Bone demineralization and streak artifacts limit evaluation. In spite of limitations: 1. Extensive posterior fusion changes spanning from at least T10-S1 with laminectomies. Partially visualized cord stimulator [...] TO: GEORGI CAMPBELL MD MYELOGRAM LUMBOSACRAL INCL [id number] 12:03:00 [address], [place] [address] Patient Name: LAKEISHA GIL MR #: [id number] : 1945 Age/Sex: 72/F Re #: [id number] [facility] Physician: Ordered by: GEORGI DUNAWAY MD Report #: [id number] Location: DX Room/Bed: Procedure: [id number] DX/MYELOGRAM LUMBOSACRAL INCL INJ Exam Date: Exam [...] obtained and the patient was transferred [facility] scanner. FINDINGS: No significant ventral epidural [...] TO: GEORGI CAMPBELL MD BONE SCAN, 3 LHJFQ5557-73-44 22:29:00 [place] [address] Patient Name: LAKEISHA GIL MR #: [id number] : 1945 Age/Sex: 72/F Req #: [id number] Adm Physician: Ordered by: PHIL HAMILTON DPLinn Report #: [id number] Location: [facility] means/Bed: Procedure: [id number] NM/BONE SCAN, 3 PHASE Ex am Date: [...] 12/17/172241 COPY TO: PHIL HAMILTON DPM Blood Oebeucx0153-23-54 16:34:00* Test Item Value Reference Range Interpretation Comments Blood Culture (test code = 77003543) NO GROWTH AFTER 72 HOURS [facility] NorthwestVancomycin Level Tlrjar9768-11-12 09:17:00* Test Item Value Reference Range Interpretation Comments Vancomycin Level Trough (test code = 4092-3) 14.3 5.0-10.0 HH Results called to AVIS WILKERSON RN at 0916 on 10/30/17 by Ryan De La Rosa. RB OK. [facility] NorthwestBacteria identification in wound by gswmwcl5381-88-24 07:59:00* Test Item Value Reference Range Interpretation Comments Wound Culture (test code = 6462-6) Organism: YEAST SPECIES [facility] Rockodium Dmqwh2613-65-12 07:04:00* Test Item Value Reference Range Interpretation Comments Sodium Level (test code = 2951-2) 142 136-145 [facility] NorthwestPotassium Ufsie3729-72-46 07:04:00* Test Item Value Reference Range Interpretation Comments Potassium Level (test code = 2823-3) 3.7 3.5-5.1 [facility] NorthwestChloride Rvtyz5745-73-08 07:04:00* Test Item Value Reference Range Interpretation Comments Chloride Level (test code = 2075-0) 103 98-107 [facility] NorthwestCarbon Dioxide Uvnyx4531-06-27 07:04:00* Test Item Value Reference Range Interpretation Comments Carbon Dioxide Level (test code = 2028-9) 31 22-29 H [facility] NorthwestAnion Rcs7654-36-38 07:04:00* Test Item Value Reference Range Interpretation Comments Anion Gap (test code = 30730-6) 11.7 8-16 [facility] NorthwestBlood Urea Gjnupstp9388-76-37 07:04:00* Test Item Value Reference Range Interpretation Comments Blood Urea Nitrogen (test code = 3094-0) 9 7-26 [facility] NorthwestCreatinine2018-05-10 07:04:00* Test Item Value Reference Range Interpretation Comments Creatinine (test code = 2160-0) 0.72 0.57-1.11 [facility] NorthwestBUN/Creatinine Wrilu3034-45-22 07:04:00* Test Item Value Reference Range Interpretation Comments BUN/Creatinine Ratio (test code = 3097-3) 13 6-25 [facility] NorthwestEstimat Glomerular Filtration Rate 2017-10-30 07:04:00* Test Item Value Reference Range Interpretation Comments Estimat Glomerular Filtration Rate (test code = 33006-6) 60- >60 Ranges were taken from the National Kidney Disease Education Program and the [facility] Foundation literature.Reference ranges:60 or greater: Uaitux29-94 ( for 3 consecutive months): Chronic kidney disease 15 or less: Kidney failureHCA [facility] Healthcare NorthwestGlucose Jjeyt7696-34-88 07:04:00* Test Item Value Reference Range Interpretation Comments Glucose Level (test code = SGE9920) 102 74-118 [facility] NorthwestCalcium Xsbbz1604-31-77 07:04:00* Test Item Value Reference Range Interpretation Comments Calcium Level (test code = 46785-6) 9.3 8.4-10.2 [facility] NorthwestMagnesium Apxke1569-90-35 07:04:00* Test Item Value Reference Range Interpretation Comments Magnesium Level (test code = 56453-1) 1.7 1.3-2.1 [facility] NorthwestWhite Blood Ccwjk0780-47-40 06:35:00* Test Item Value Reference Range Interpretation Comments White Blood Count (test code = 6690-2) 5.60 4.8-10.8 [facility] NorthwestRed Blood Cwial9332-93-04 06:35:00* Test Item Value Reference Range Interpretation Comments Red Blood Count (test code = 789-8) 3.84 3.6-5.1 [facility] NorthwestHemoglobin2018-05-10 06:35:00* Test Item Value Reference Range Interpretation Comments Hemoglobin (test code = 29272-1) 11.0 12.0-16.0 L [facility] NorthwestHematocrit2018-05-10 06:35:00* Test Item Value Reference Range Interpretation Comments Hematocrit (test code = 4544-3) 34.9 34.2-44.1 [facility] NorthwestMean Corpuscular Ffbfbq0604-64-38 06:35:00* Test Item Value Reference Range Interpretation Comments Mean Corpuscular Volume (test code = 787-2) 90.9 81-99 [facility] NorthwestMean Corpuscular Ngqctxbmif8662-75-17 06:35:00* Test Item Value Reference Range Interpretation Comments Mean Corpuscular Hemoglobin (test code = 785-6) 28.6 28-32 [facility] Concent 2017-10-30 06:35:00* Test Item Value Reference Range Interpretation Comments Mean Corpuscular Hemoglobin Concent (test code = 786-4) 31.5 31-35 [facility] NorthwestRed Cell Distribution Zkuxg5493-84-17 06:35:00* Test Item Value Reference Range Interpretation Comments Red Cell Distribution Width (test code = 13233-8) 16.8 11.7 -14.4 H [facility] NorthwestPlatelet Cmljr2337-00-44 06:35:00* Test Item Value Reference Range Interpretation Comments Platelet Count (test code = 777-3) 376 140-360 H [facility] NorthwestNeutrophils (%) (Auto)2017-10-30 06:35:00 * Test Item Value Reference Range Interpretation Comments Neutrophils (%) (Auto) (test code = 18124-4) 66.0 38.7-80.0 [facility] NorthwestLymphocytes (%) (Auto)2017-10-30 06:35:00 * Test Item Value Reference Range Interpretation Comments Lymphocytes (%) (Auto) (test code = 736-9) 16.4 18.0-39.1 L [facility] NorthwestMonocytes (%) (Auto)2017-10-30 06:35:00* Test Item Value Reference Range Interpretation Comments Monocytes (%) (Auto) (test code = 5905-5) 8.2 4.4-11.3 [facility] NorthwestEosinophils (%) (Auto)2017-10-30 06:35:00 * Test Item Value Reference Range Interpretation Comments Eosinophils (%) (Auto) (test code = 713-8) 8.6 0.0-6.0 H [facility] NorthwestBasophils (%) (Auto)2017-10-30 06:35:00* Test Item Value Reference Range Interpretation Comments Basophils (%) (Auto) (test code = 706-2) 0.4 0.0-1.0 [facility] NorthwestIM GRANULOCYTES %2017-10-30 06:35:00* Test Item Value Reference Range Interpretation Comments IM GRANULOCYTES % (test code = IM GRANULOCYTES %) 0.4 0.0- 1.0 [facility] NorthwestNeutrophils # (Auto)2017-10-30 06:35:00* Test Item Value Reference Range Interpretation Comments Neutrophils # (Auto) (test code = 751-8) 3.7 2.1-6.9 [facility] NorthwestLymphocytes # (Auto)2017-10-30 06:35:00* Test Item Value Reference Range Interpretation Comments Lymphocytes # (Auto) (test code = 67400-3) 0.9 1.0-3.2 L [facility] NorthwestMonocytes # (Auto)2017-10-30 06:35:00* Test Item Value Reference Range Interpretation Comments Monocytes # (Auto) (test code = 742-7) 0.5 0.2-0.8 [facility] NorthwestEosinophils # (Auto)2017-10-30 06:35:00* Test Item Value Reference Range Interpretation Comments Eosinophils # (Auto) (test code = 711-2) 0.5 0.0-0.4 H [facility] NorthwestBasophils # (Auto)2017-10-30 06:35:00* Test Item Value Reference Range Interpretation Comments Basophils # (Auto) (test code = 704-7) 0.0 0.0-0.1 [facility] NorthwestAbsolute Immature Granulocyte (auto 2017-10-30 06:35:00* Test Item Value Reference Range Interpretation Comments Absolute Immature Granulocyte (auto (sherly t code = Absolute Immature Granulocyte (auto) 0.02 0-0.1 [facility] NorthwestClostridium Difficile Toxin A & B 2017-10-29 14:35:00* Test Item Value Reference Range Interpretation Comments Clostridium Difficile Toxin A & B (test code = 184532744) NEGATIVE NEGATIVE Testing on stool aspirate specimens is outside assisted living housekeeper claims since specime n type not validated on this assay.[facility] Bedside Pofvssa0178-60-75 21:23:00* Test Item Value Reference Range Interpretation Comments Bedside Glucose (test code = 97456-7) 93 70-120 Meter ID: [id number] Houston Healthcare NorthwestErythrocyte Sedimentation Tsta3658-10-42 11:54:00* Test Item Value Reference Range Interpretation Comments Erythrocyte Sedimentation Rate (test code = 4537-7) 83 0- 20 H [facility] NorthwestUrine MFF0798-80-55 19:01:00* Test Item Value Reference Range Interpretation Comments Urine WBC (test code = 5821-4) 0-5 0-5 [facility] NorthwestUrine PYK9953-79-53 19:01:00* Test Item Value Reference Range Interpretation Comments Urine RBC (test code = 76486-3) NONE 0-5 [facility] NorthwestUrine Jdbsiiff0539-85-54 19:01:00* Test Item Value Reference Range Interpretation Comments Urine Bacteria (test code = 82235-7) MODERATE NONE H [facility] NorthwestUrine Epithelial Dvmgs4859-26-02 19:01:00 * Test Item Value Reference Range Interpretation Comments Urine Epithelial Cells (test code = 73863-3) MODERATE NONE [facility] NorthwestUrine Dqpzd1751-64-34 18:50:00* Test Item Value Reference Range Interpretation Comments Urine Color (test code = 5778-6) YELLOW YELLOW [facility] NorthwestUrine Rpnuank4224-20-92 18:50:00* Test Item Value Reference Range Interpretation Comments Urine Clarity (test code = 20013-1) SL CLOUDY CLEAR [facility] NorthwestUrine Specific Lskldmd3418-79-73 18:50:00 * Test Item Value Reference Range Interpretation Comments Urine Specific [place] (test code = 5811-5) 1.020 1.010-1.02 5 [facility] NorthwestUrine gX1081-92-14 18:50:00* Test Item Value Reference Range Interpretation Comments Urine pH (test code = 90030-6) 7 5-7 [facility] NorthwestUrine Leukocyte Xzixqlle1020-10-82 18:50:00* Test Item Value Reference Range Interpretation Comments Urine Leukocyte Esterase (test code = 5799-2) NEGATIVE NEGATIVE [facility] NorthwestUrine Qpdctmf6102-28-73 18:50:00* Test Item Value Reference Range Interpretation Comments Urine Nitrite (test code = 68181-6) NEGATIVE NEGATIVE [facility] NorthwestUrine Xmgcoyw9377-54-38 18:50:00* Test Item Value Reference Range Interpretation Comments Urine Protein (test code = 5804-0) 1+ NEGATIVE H [facility] NorthwestUrine Glucose (UA)2017-10-27 18:50:00* Test Item Value Reference Range Interpretation Comments Urine Glucose (UA) (test code = 2349-9) NEGATIVE NEGATIVE [facility] NorthwestUrine Rfeamhr7092-29-28 18:50:00* Test Item Value Reference Range Interpretation Comments Urine Ketones (test code = 04542-2) TRACE NEGATIVE H [facility] NorthwestUrine Gpffyiemnxyh1856-93-86 18:50:00* Test Item Value Reference Range Interpretation Comments Urine Urobilinogen (test code = 40531-7) 0.2 0.2-1 [facility] NorthwestUrine Htxtufjpx7583-95-78 18:50:00* Test Item Value Reference Range Interpretation Comments Urine Bilirubin (test code = 1978-6) NEGATIVE NEGATIVE [facility] Jdyly2019-41-34 18:50:00* Test Item Value Reference Range Interpretation Comments Urine Blood (test code = 56970-9) NEGATIVE NEGATIVE [facility] NorthwestTotal Updlivguh0934-53-78 16:52:00* Test Item Value Reference Range Interpretation Comments Total Bilirubin (test code = 1975-2) 0.4 0.2-1.2 [facility] NorthwestAspartate Amino Transf (AST/SGOT) 2017-10-27 16:52:00* Test Item Value Reference Range Interpretation Comments Aspartate Amino Transf (AST/SGOT) (test code = Aspartate Amino Transf (AST/SGOT)) 15 5-34 [facility] NorthwestAlanine Aminotransferase (ALT/SGPT) 2017-10-27 16:52:00* Test Item Value Reference Range Interpretation Comments Alanine Aminotransferase (ALT/SGPT) (test code = 1742-6) 12 0-55 [facility] NorthwestTotal Sslamjz1076-20-60 16:52:00* Test Item Value Reference Range Interpretation Comments Total Protein (test code = 2885-2) 8.3 6.5-8.1 H [facility] NorthwestAlbumin2018-05-07 16:52:00* Test Item Value Reference Range Interpretation Comments Albumin (test code = 1751-7) 2.9 3.5-5.0 L [facility] NorthwestGlobulin2018-05-07 16:52:00* Test Item Value Reference Range Interpretation Comments Globulin (test code = 56693-3) 5.4 2.3-3.5 H [facility] NorthwestAlbumin/Globulin Edsvj7840-84-83 16:52:00 * Test Item Value Reference Range Interpretation Comments Albumin/Globulin Ratio (test code = 1759-0) 0.5 0.8-2.0 L [facility] NorthwestAlkaline Uqbjmsrpljo5319-02-74 16:52:00* Test Item Value Reference Range Interpretation Comments Alkaline Phosphatase (test code = 6768-6) 108 40-150 [facility] NorthwestLactic Acid Ieulp7870-61-11 16:46:00* Test Item Value Reference Range Interpretation Comments Lactic Acid Level (test code = Lactic Acid Level) 15.5 4.5- 19.8 [facility] Rocktool Occult Gjbxx2954-40-64 10:34:00* Test Item Value Reference Range Interpretation Comments Stool Occult Blood (test code = 2335-8) NEGATIVE NEGATIVE [facility] NorthwestB-Type Natriuretic Zrgjzfq3044-74-47 07:19:00* Test Item Value Reference Range Interpretation Comments B-Type Natriuretic Peptide (test code = 85566-8) 24.5 0-100 [facility] NorthwestC-Reactive Zkwhmnl9524-57-17 23:04:00* Test Item Value Reference Range Interpretation Comments C-Reactive Protein (test code = 1988-5) 179.7 0.0-4.9 H Performed at: - [facility] [id number] Director: Horacio Bentley MD, Phone: [phone] Houston Healthcare NorthwestVitamin B12 Tukpe6898-84-19 08:26:00* Test Item Value Reference Range Interpretation Comments Vitamin B12 Level (test code = 38300-4) 327 213816 [facility] NorthwestFolate2018-01-28 08:26:00* Test Item Value Reference Range Interpretation Comments Folate (test code = 2284-8) 18.8 7.0-15.4 H [facility] NorthwestFree Yavzjfmnv6342-10-16 08:26:00* Test Item Value Reference Range Interpretation Comments Free Thyroxine (test code = 3024-7) 0.96 0.9-1.8 [facility] NorthwestThyroid Stimulating Hormone (TSH) 2017-07-20 08:26:00* Test Item Value Reference Range Interpretation Comments Thyroid Stimulating Hormone (TSH) (test code = 22817-1) 0.755 0.350-4.940 [facility] NorthwestIron Nirrk6103-58-94 07:44:00* Test Item Value Reference Range Interpretation Comments Iron Level (test code = 2498-4) 29 50-170 L [facility] NorthwestTotal Iron Binding Qtwzfura6992-09-57 07:44:00* Test Item Value Reference Range Interpretation Comments Total Iron Binding Capacity (test code = 2500-7) 311 261-4 78 [facility] NorthwestPercent Iron Juvwqkjhwl1692-75-16 07:44:00* Test Item Value Reference Range Interpretation Comments Percent Iron Saturation (test code = 2502-3) 9 15-50 L [facility] NorthwestTransferrin2018-01-28 07:44:00* Test Item Value Reference Range Interpretation Comments Transferrin (test code = 3034-6) 222 180-382 [facility] NorthwestHemoglobin A1c Edljhzl4043-39-86 16:01:00 * Test Item Value Reference Range Interpretation Comments Hemoglobin A1c Percent (test code = Hemoglobin A1c Percent) 5.4 4.0-7.0 [facility] NorthwestTriglycerides Mzxvj5577-70-30 15:37:00* Test Item Value Reference Range Interpretation Comments Triglycerides Level (test code = 2571-8) 98 0-149 [facility] NorthwestCholesterol Gkvea2989-08-92 15:37:00* Test Item Value Reference Range Interpretation Comments Cholesterol Level (test code = 2093-3) 165 0-199 Less than 200 mg/dL Low Uhhi755 - 239 mg/dL Borderline Jepc116 m g/dl and greater High Risk [facility] NorthwestLDL Ahfbvzhmsmz2044-87-12 15:37:00* Test Item Value Reference Range Interpretation Comments LDL Cholesterol (test code = 2089-1) 87 60-130 [facility] NorthwestHDL Cqbjksincxd2433-30-42 15:37:00* Test Item Value Reference Range Interpretation Comments HDL Cholesterol (test code = 2085-9) 58 40-60 [facility] NorthwestCholesterol/HDL Rzisu1578-74-32 15:37:00 * Test Item Value Reference Range Interpretation Comments Cholesterol/HDL Ratio (test code = 9830-1) 2.8 3.0-3.6 L [facility] NorthwestProthrombin Vojl1564-16-36 15:37:00* Test Item Value Reference Range Interpretation Comments Prothrombin Time (test code = 5902-2) 14.6 11.9-14.5 H [facility] NorthwestProthromb Time International Ratio 2017-07-18 15:37:00* Test Item Value Reference Range Interpretation Comments Prothromb Time International Ratio (test code = 6301-6) 1.08 Oral Anticoagulant Therapy INR Values:1. Low Intensity Therapy 1.5 - 2.02 . Moderate Intensity Therapy 2.0 - 3.03. High Intensity Therapy(1) 2.5 - 3. 54. High Intensity Therapy(2) 3.0 - 4.05. Panic Value INR > 5.0 [facility] NorthwestActivated Partial Thromboplast Time 2017-07-18 15:37:00* Test Item Value Reference Range Interpretation Comments Activated Partial Thromboplast Time (test code = 29058-6) 34.3 23.8-35.5 [facility] NorthwestFL, GYMNASTIC COACH IN OR/30 MINUTE INCREMENTS 2017-06-10 14:19:00Reason for exam:->TRIAL OF SPINAL CORD STIMULATOR VIA LAMINECTOMYPROCEDURE PERFORMED IN O.R. - PLEASE REFER TO THE INTRAOPERATIVE REPORT. C METABOLIC EWHNO0121-05-85 10:13:00* Test Item Value Reference Range Interpretation [...] DIALYSIS PATIENTS. CBC W/PLT COUNT & AUTO FXAKKNKUAGTX7288-37-56 09:49:00* Test Item Value Reference Range Interpretation [...] = 2801) 0 % 0-1 BASIC METABOLIC FMWEE2042-98-28 13:45:00* Test Item Value Reference Range Interpretation [...] APPLICABLE FOR DIALYSIS PATIENTS. RAD, CHEST, 2 GKVVF4533-28-80 13:40:00Reason for exam:->pre op testingFINAL REPORT Chest, [...] RESSION: No acute cardiopulmonary abnormality. Signed: Savage Young MDReport Verified Date/Time: 05/21/2017 13:40:14 Reading Location: [address] Reading Room Electronically signed by: SAVAGE YOUNG on 7 01:40 PM URINALYSIS W/ REFLEX URINE GESEQQE2432-05-01 13:33:00* Test Item Value Reference Range Interpretation [...] 2 /HPF SOURCE(BEAKER) (test code = 2795) EDZH8811-44-28 13:26:00* Test Item Value Reference Range Interpretation Comments PARTIAL THROMBOPLASTIN TIME (BEAKER) (test code = 760) 31.9 seconds 22.5-36.0 PROTHROMBIN TIME/BWD6373-06-20 13:25:00* Test Item Value Reference Range Interpretation [...] mechanical heart valves.CBC W/PLT COUNT & AUTO LDAGNKJKJDVH2466-37-31 13:08:00* Test Item Value Reference Range Interpretation [...] (test code = 2801) 0 % 0-1 AACMOESDDAHN9407-23-39 13:39:88104Ltyzeqza FlmqyiaVXZVIZYTFDUI1127-89-56 13:39:004.4[facility] ZikaeraYKVTHVJMDYPE1945-93-75 13:39:62627Lcbfuexm [facility] PEVOQODRDUHZ8456-48-10 13:39:0037[facility] ObppxgxKBDJNCUMZPCN1654-96-58 13:39:00 7.4Mem[facility] HermannCHEST XRAY LINE PLACEMENT [place] [address] Patient Name: LAKEISHA GIL MR #: [id number] : 1945 Age/Sex: 72/F Req #: [id number] Adm Physician: MANDI REBOLLAR MD Ordered by: BEVERLY CASTANON MD Report #: [id number] Location: MED/SURG2 Room/Bed: 210 Procedure: [id number] DX/CHEST XRAY LINE PLACEMENT Exam Date: 10/29/17 [...] at 16:14 Dictated By: JACKSON GOMEZ MD 1614 Transcribed By: KELLY on 10/29/17 1614 COPY TO: BEVERLY CASTANON MD FOOT LEFT COMPLETE [place] [address] Patient Name: LAKEISHA GIL MR #: [id number] : 1945 Age/Sex: 72/F Req #: [id number] Adm Physician: MANDI REBOLLAR MD Ordered by: MERCEDES THOMPSON DPM Report #: [id number] Location: MED/SURG2 Room/Bed: [facility] Procedure: [id number] 0 DX/FOOT LEFT COMPLETE Exam [...] CHAVARRIA MD 7 Transcribed By: KELLY on 10/29/17 0848 COPY TO: MERCEDES THOMPSON DPM CHEST SINGLE (NOT PORTABLE) [place] [address] Patient Name: LAKEISHA GIL MR #: [id number] : 1945 Age/Sex: 72/F Req #: [id number] Adm Physician: Ordered by: JANET CHAVES KNIFE SHARPENER Report #: [id number] Location: ER Room/Bed: Procedure: [id number] DX/CHEST SINGLE (NOT PORTAB LE) Exam Date: [...] KELLY on 10/27/171741 COPY TO: JANET CHAVES KNIFE SHARPENER CT FOOT LEFT W [place] [address] Patient Name: LAKEISHA GIL MR #: [id number] : 1945 Age/Sex: 71/F Req #: [id number] Adm Physician: MANDI REBOLLAR MD Ordered by: CLIFFORD BOJORQUEZ DPM Report #: [id number] Location: MED/SURG2 Room/Bed: [facility] Procedure: 012 CT/CT FOOT LEFT W Exam Date: 07/20/17 [...] DPM HIP RIGHT 2-3 VW (+/- PELVIS) [place] [address] Patient Name: LAKEISHA GIL MR #: [id number] : 1945 Age/Sex: 71/F Req #: [id number] Adm Physician: MANDI REBOLLAR MD Ordered by: MANDI REBOLLAR MD Report #: [id number] Location: MED/SURG2 Room/Bed: [facility] Procedure: [id number] DX/HIP RIGHT 2-3 VW (+/- PELVIS) Exam [...] MANDI REBOLLAR MD KNEE RIGHT 1-2 VIEWS [place] [address] Patient Name: LAKEISHA GIL MR #: [id number] : 1945 Age/Sex: 71/F Req #: [id number] Adm Physician: MANDI REBOLLAR MD Ordered by: MANDI REBOLLAR MD Report #: [id number] Location: MED/SURG2 Room/Bed: [facility] Procedure: [id number] DX/KNEE RIGHT 1-2 VIEWS Exam Date: 07/19/17 [...] TO: MANDI REBOLLAR MD CHEST SINGLE (PORTABLE) [place] [address] Patient Name: LAKEISHA GIL MR #: [id number] : 1945 Age/Sex: 71/F Req #: [id number] Adm Physician: MANDI REBOLLAR MD Ordered by: MANDI REBOLLAR MD Report #: [id number] Loc ation: MED/SURG2 Room/Bed: [facility] Procedure: [id number] DX/CHEST SINGLE (PORTABLE) Exam Date: 07/19/17 Exam [...] MARCOS REBOLLAR MD CHEST XRAY LINE PLACEMENT [place] [address] Patient Name: LAKEISHA GIL MR #: [id number] : 1945 Age/Sex: 71/F Req #: [id number] Adm Physician: MANDI REBOLLAR MD Ordered by: MANDI REBOLLAR MD Report #: [id number] Location: MED/SURG2 Room/Bed: [facility] Procedure: [id number] DX/CHEST XRAY LINE PLACEMENT Exam Date: Exam [...] MANDI REBOLLAR MD CHEST XRAY LINE PLACEMENT [place] [address] Patient Name: LAKEISHA GIL MR #: [id number] : 1945 Age/Sex: 71/F Req #: [id number] Adm Physician: MANDI REBOLLAR MD Ordered by: MANDI REBOLLAR MD Report #: [id number] Loc ation: MED/SURG2 Room/Bed: 206-1 Procedure: [id number] DX/CHEST XRAY LINE PLACEMENT Exam Date: Exam [...] on 07/19/1747 COPY TO: MANDI REBOLLAR MD [place] [address] Patient Name: LAKEISHA GIL MR #: [id number] : 1945 Age/Sex: 71/F Req #: [id number] Adm Physician: MANDI REBOLLAR MD Ordered by: LENNOX GONZALEZ Report #: [id number] Location: [facility] Room/Bed: [place] [address] Procedure: [id number] DX/FOOT LEFT COMPLETE Exam Date: 07/18/17 Juanito means Time: 1515 REPORT STATUS: Signed PROCEDURE: X-RAY [...]
[2020-03-06 17:20] VITALS: BP 112/81
[2020-03-06 17:30] VITALS: BP 112/81
[2020-03-06] MEDS: ASPIRIN 325 MG TAB PO SCH (17:57)
[2020-03-06] MEDS: CELECOXIB 100 MG CAP PO SCH (17:57)
[2020-03-06] MEDS ORDERED: ACETAMINOPHEN 1000 MG/100 ML IV PRN (18:00)
[2020-03-06 19:30] VITALS: BP 110/90
[2020-03-06 20:00] VITALS: BP 125/90
[2020-03-06] MEDS: CEFAZOLIN SOD 1 GM/NS 50ML 50 ML IV SCH (20:46)
[2020-03-06] MEDS ORDERED: ZOLPIDEM TARTRATE 5 MG TAB PO PRN (21:00)
--- NOTE | 2020-03-06 21:43 | Operative Report ---
DATE OF PROCEDURE: 03/06/2020 SURGEON: Devin Greene MD LINEN CHECKER: John Viera, certified PA. PREOPERATIVE DIAGNOSIS: Right femur periprosthetic fracture. TERRITORIAL DIAGNOSIS: Subcutaneous seroma. POSTOPERATIVE DIAGNOSIS: Right femur periprosthetic fracture. PROCEDURE: Right hip irrigation and debridement with open reduction and internal fixation of periprosthetic femur fracture. INDICATIONS: The patient is a medically frail 74-year-old lady, who recently underwent a right total hip replacement. She presented to our office a few weeks ago with a 6 L seroma in the incision. The patient has a body mass index of 46. The seroma was aspirated. She returned and had a reaccumulation of the seroma. She also reported increased pain, but no specific trauma. X-rays showed a periprosthetic fracture around the stem with about half a cm of subsidence. The findings and options were discussed with the patient. We planned on return to the operating room for irrigation and debridement of the seroma, closure of space, and fixation of the fracture. All the risks and benefits and challenges of the case were discussed with the patient. She will need to be in a wheelchair for up to three months after the surgery. She states she understands and wishes to proceed. PROCEDURE IN DETAIL: The patient was brought to the operating room. She was placed under general anesthetic. She received prophylactic antibiotics and tranexamic acid in the holding area. She was positioned in the left lateral decubitus position. Added time and challenges were encountered due to the patient's body mass index of 46. Her right hip was prepped and draped in a sterile manner. There was no gross motion noted at the fracture site during prepping. A preoperative time-out was performed. A portion of the posterior incision was utilized and extended distally. A massive subcutaneous seroma was debrided. Cultures were taken. There was no evidence of purulence. Hemostasis was obtained with electrocautery. The fascia was incised distally. The vastus lateralis was elevated anteriorly. I digitally palpated the fracture line. I put the hip through flexion and internal rotation. I could feel no motion at the fracture site whatsoever. I elected to fix this with a cable plate rather than a revision femoral stem. A Jackie modular cable plate system was used. Cable wires were passed circumferentially around the femoral shaft. These were tensioned and secured to a lateral plate. Intraoperative x-rays were taken to shows appropriate positioning of the hardware and alignment of the fracture. I once again put the hip through motion. There was improved alignment of the fracture, but there was no gross motion whatsoever at the fracture site. The cables were secured and cut short. The hip was thoroughly irrigated with a shower tip pulsatile lavage. A 500 mg of vancomycin powder was sprinkled into the deep area of the wound. The lining of the seroma was carefully closed down and the space was sewn [id number] with Ethibond sutures. The wound was closed over a medium Hemovac drain. The superficial seroma lining was also sewn [id number] to diminish any potential space. The skin was closed with subcuticular Vicryl and sammie. A sterile bandage was applied. Estimated blood loss was approximately 200 mL. At the end of the procedure, all needle and sponge counts were correct. Devin Greene MD DR/GANESH /[id number]
[2020-03-06] MEDS: KETOROLAC TROMETHAMINE 30 MG/ML VIAL IV PRN (22:03)
[2020-03-07] VITALS (9 sets, daily range): BP systolic 95–129; BP diastolic 50–86
[2020-03-07] MEDS: CEFAZOLIN SOD 1 GM/NS 50ML 50 ML IV SCH ×2 (03:24→12:00)
[2020-03-07] MEDS: HYDROCODONE/APAP 7.5MG-325MG 1 EA TAB PO PRN ×4 (03:24→19:36)
--- NOTE | 2020-03-07 05:34 | Consultation ---
DATE OF CONSULTATION: REASON FOR CONSULTATION: Repair of right femur fracture. HISTORY OF PRESENT ILLNESS: The patient is a 74-year-old lady, who is status post repair of a displaced fracture of the right femur, who complains of quite a bit of pain at the surgical site area, but denies any fever, chills, nausea, vomiting, headache, shortness of breath, or dizziness on review of systems. PAST MEDICAL HISTORY: Significant for high blood pressure, depression, blood clots, and arthritis. MEDICATIONS: See MAR. ALLERGIES: CLINDAMYCIN, DILAUDID, MORPHINE, AND METHADONE. SOCIAL HISTORY: Nonsmoker and nondrinker. . Retired. FAMILY HISTORY: Heart disease, high blood pressure, and stroke. PHYSICAL EXAMINATION: VITAL SIGNS: Temperature 97.8, pulse 103, blood pressure 95/50, sats 95% on room air. GENERAL: She is in no apparent distress, lying in bed. NECK: Supple. No lymphadenopathy. CARDIOVASCULAR: Regular rate and rhythm. LUNGS: Clear to auscultation bilaterally. ABDOMEN: Good bowel sounds. Soft and nontender. EXTREMITIES: No clubbing or cyanosis. NEUROLOGIC: Nonfocal. Moves all extremities x4. ASSESSMENT/PLAN: 1. Right hip pain. We will continue with pain control and physical therapy per Orthopedics. 2. Anemia. Check a CBC. 3. Hypertension. Continue to monitor since she is a little hypotensive and restart blood pressure medicine when she is doing well. 4. Depression. We will continue with her current medications, when she was discharged. 5. Reflux disease. Continue with her medications at discharge. Please see hospital chart for full details. MD ANISH Pena/GANESH /[id number]
[2020-03-07 06:04] LABS: HEMATOCRIT 27.2 % (34.2-44.1); HEMOGLOBIN 8.3 g/dL (12.0-16.0)
[2020-03-07] MEDS ORDERED: ACETAMINOPHEN 1000 MG/100 ML 100 ML IV ONE (06:04)
--- NOTE | 2020-03-07 07:00 | NUR ---
EDSIDE SHIFT REPORT RECEIVED FROM MOTOR DRIVER RN. PT DENIES NEEDS AT THIS TIME.
[2020-03-07] MEDS: SODIUM CHLORIDE 0.9% 1000ML 1,000 ML IV SCH (08:45)
[2020-03-07] MEDS: ASPIRIN 325 MG TAB PO SCH ×2 (09:44→17:46)
[2020-03-07] MEDS: CELECOXIB 100 MG CAP PO SCH ×2 (09:44→17:46)
--- NOTE | 2020-03-07 10:00 | NUR ---
WHILE PT WAS WORKING WITH THE PT, THE HEMOVAC FELL OUT OF SURGICAL SITE. HEMOVAC WAS CLIPPED TO THE PT. WEIGHT OF TUBE WAS ENOUGH TO PULL OUT HEMOVAC. ONLY 15 ML PULLED IN LAST 4 HRS AND LITE BRAGG COLOR. SITE RE ENFORCED.
--- NOTE | 2020-03-07 11:30 | NUR ---
ORDERS FOR ACUTE REHAB PT CHOSE [facility] SHE'S BEEN THERE BEFORE X 2 CHOICE LETTER SIGNED BY PT AND PLACED IN CHART MOT INITIATED AND PLACED IN PACKET AT DESK NOTIFIED INÉS WITH [facility] NOTIFIED OF CONSULT FAXED CLINICAL TO [phone]; CONFIRMATION REC'D SPOKE WITH MECHELLE PRADO WHO STATES PT SHOULD BE READY FOR DC ON 03/08
--- NOTE | 2020-03-07 11:54 | NUR ---
SPOKE TO EVE ABOUT HEMOVAC. NO NEW ORDERS.
--- NOTE | 2020-03-07 18:50 | NUR ---
RECEIVED BEDSIDE SHIFT REPORT FROM PREVIOUS NURSE. CALL LIGHT WITHIN REACH. PATIENT IN BED.
[2020-03-07] MEDS: KETOROLAC TROMETHAMINE 30 MG/ML VIAL IV PRN (23:01)
--- NOTE | 2020-03-07 23:25 | NUR ---
GAVE REPORT TO JUAN LUIS. PATIENT IN BED. CALL LIGHT WITHIN REACH. PURIWICK DRAINING WELL.
[2020-03-08] VITALS: BP 122/75
[2020-03-08] MEDS: HYDROCODONE/APAP 7.5MG-325MG 1 EA TAB PO PRN ×2 (00:40→10:09)
[2020-03-08 04:00] VITALS: BP 132/73
[2020-03-08 04:58] LABS: HEMATOCRIT 30.5 % (34.2-44.1); HEMOGLOBIN 9.4 g/dL (12.0-16.0)
--- NOTE | 2020-03-08 07:00 | NUR ---
BEDSIDE SHIFT REPORT RECEIVED PT IN STABLE CONDITION, DENIES PAIN AT THIS TIME, UPDATED ON POC VOICED UNDERSTANDING, NO OTHER CO VOICED CALL LIGHT IN REACH WILL CONTINUE TO MONITOR
[2020-03-08 07:29] VITALS: BP 135/82
[2020-03-08 08:41] VITALS: BP 135/82
--- NOTE | 2020-03-08 09:15 | NUR ---
ASSESSMENT: Spiritual concern Pt worried about losing independence. Pt states she hopes to continue living w/o help from others and doesn't want to "go to assisted living." Intervention: Provided hospitality and empathic listening. Provided prayer. Outcome: Pt expressed appreciation for visit. No need to will follow at this time. DEJAN AGUSTIN Gender Studies Professor Spiritual Care Department O: [phone]
[2020-03-08] MEDS: ASPIRIN 325 MG TAB PO SCH (09:24)
[2020-03-08] MEDS: CELECOXIB 100 MG CAP PO SCH (09:25)
--- NOTE | 2020-03-08 09:28 | Diagnostic Imaging Report ---
Exam: KUB - 2 views Indication: Abdominal pain, distention Comparison: Pelvis radiograph 03/06/2020 Findings: Postoperative findings of right total hip replacement and revision as well as extensive thoracolumbar spinal fusion. Left abdominal pump with lead projecting over the midline. Nonobstructive bowel gas pattern. No free air. Increased stool burden in the colon with multiple stool balls in the rectum and at the hepatic flexure. No acute osseous injury. Status post cholecystectomy. Impression: Nonobstructive bowel gas pattern. No free air. Increased stool burden in the colon can be seen with constipation. Signed by: Madhav Childers MD on 03/08/2020 9:25 AM
--- NOTE | 2020-03-08 09:34 | NUR ---
DR BRADEN NOTIFIED OF KUB RESULTS, Addendum: 03/08/20 at 1636 by Adele العلي RN NO NEW ORDERS GIVEN AT THIS TIME
[2020-03-08] MEDS ORDERED: ONDANSETRON HCL 4 MG ORAL DISINTEGRATING TAB PO PRN (10:15)
[2020-03-08 11:26] VITALS: BP 137/90
--- NOTE | 2020-03-08 12:10 | NUR ---
HR [address] BRADEN, PT HOME MEDICATIONS RESTARTED
[2020-03-08] MEDS ORDERED: BUMETANIDE 1 MG TAB PO PRN (12:15)
--- NOTE | 2020-03-08 12:30 | NUR ---
PT CO ABDOMINAL PAIN, DR BRADEN NOTIFIED, ORDERS GIVEN FOR MYLICON WILL CONTINUE TO MONITOR
--- NOTE | 2020-03-08 12:41 | NUR ---
REC'D AUTH FOR [facility] ACCEPTING PHYSICIAN IS DR LEANNA NUNN ACCEPTING ADMIN: GILSON [place] CALL REPORT TO [phone] [facility] [address] [place] [id number] MOT COMPLETE AND IN PACKET AT DESK COVID FORM IN PACKET AND COPY ON CHART PT'S HR UP TO 150 TODAY HOME MEDS RESUMED TRANSFER ON HOLD UNTIL HR DECREASES
[2020-03-08] MEDS ORDERED: SIMETHICONE 80 MG CHEW PO PRN (12:45)
--- NOTE | 2020-03-08 13:40 | NUR ---
HR RECHECKED, 78 WILL CONTINUE TO MONITOR
[2020-03-08] MEDS ORDERED: GABAPENTIN 300 MG CAP PO SCH (15:00)
[2020-03-08] MEDS ORDERED: PRAMIPEXOLE DIHYDROCHLORIDE 1 MG TAB PO SCH (15:00)
[2020-03-08] MEDS ORDERED: GABAPENTIN 400 MG CAP PO SCH (15:00)
[2020-03-08 15:38] VITALS: BP 115/69
--- NOTE | 2020-03-08 15:45 | NUR ---
REPORT CALLED TO CHANDAN LAO, AT [facility], ALL QUESTIONS ANSWERED Addendum: 03/08/20 at 1608 by Adele العلي RN MOT GIVEN TO [facility], AWAITING AMBULANCED
--- NOTE | 2020-03-08 16:00 | NUR ---
IV DC'D TIP INTACT PRESSURE TO SITE HELD X 5 MINS, COVERED WITH 2X2 AND TAPE,
[2020-03-08] MEDS ORDERED: CELECOXIB 200 MG CAP PO SCH (17:00)
[2020-03-08] MEDS ORDERED: DULOXETINE HCL 30 MG DELAYED RELEASE PO SCH (17:00)
[2020-03-08] MEDS ORDERED: METOPROLOL TARTRATE 25 MG TAB PO SCH (17:00)
--- NOTE | 2020-03-08 17:04 | NUR ---
[facility] HERE FOR TRANSPORT PT TO [facility], PT GOING TO RM 2013 PT LEFT IN STABLE CONDITION WITH ALL BELONGINGS
[2020-03-08] MEDS ORDERED: MELATONIN 3 MG TAB PO SCH (21:00)
[2020-03-08] MEDS ORDERED: MELATONIN 5 MG TABLET PO SCH (21:00)
[2020-03-08] MEDS ORDERED: DIGOXIN 0.25 MG TAB PO SCH (21:00)
[2020-03-09] MEDS ORDERED: PANTOPRAZOLE SOD 40 MG TABEC PO SCH (09:00)
[2020-03-09] MEDS ORDERED: DOCUSATE SODIUM 100 MG CAP PO SCH (09:00)
[2020-03-09] MEDS ORDERED: LACTOBACILLUS ACIDOPHILUS CAPSULE PO SCH (09:00)
== END 2020-03-08 17:04 | DRG 481 ==
LOC: OR 08:14 → PACU V 12:35 → MED/SURG 17:11
PROVIDERS: ADMIT Specialist; ATTEND Specialist
PROC: 0QS804Z Reposition Right Femoral Shaft with Internal Fixation Device, Open Approach (ICD-10-PCS; principal; 2020-03-06 10:30)
DX: S72.331A Displaced oblique fracture of shaft of right femur, initial encounter for closed fracture (principal); M97.01XA Periprosthetic fracture around internal prosthetic right hip joint, initial encounter; L76.34 Postprocedural seroma of skin and subcutaneous tissue following other procedure; Z68.42 Body mass index [BMI] 45.0-49.9, adult; R22.41 Localized swelling, mass and lump, right lower limb; D64.9 Anemia, unspecified; I10 Essential (primary) hypertension; Z96.641 Presence of right artificial hip joint; M19.90 Unspecified osteoarthritis, unspecified site; I48.91 Unspecified atrial fibrillation; G47.33 Obstructive sleep apnea (adult) (pediatric); K21.9 Gastro-esophageal reflux disease without esophagitis; K44.9 Diaphragmatic hernia without obstruction or gangrene; F32.9 Major depressive disorder, single episode, unspecified; E66.01 Morbid (severe) obesity due to excess calories; Z88.5 Allergy status to narcotic agent; Z88.8 Allergy status to other drugs, medicaments and biological substances; Z11.59 Encounter for screening for other viral diseases
CPT/HCPCS: 36415; 72170; 74018; 85014; 85018; 85025; 87071; 87075; 87205; 93005; 97139; J0690; J1100; J1170; J1200; J1885; J2001; J2405; J3010; J3370; J7030; Q0162; U0002